=== PATIENT | male | born 1950 | race Caucasian/White ===

== ENCOUNTER → 2023-04-09 08:50 | Outpatient (REF) | payer MEDICARE, SELFPAY ==
[2023-04-09 09:00] VITALS: BP 153/96; BP_SYST 67
[2023-04-09 10:10] LABS: INR 1.11; PT 14.6 Sec (11.4-14.6)
[2023-04-09 10:11] LABS: % Basophils 1.4 % (0-2); % Eosinophils 0.5 % (0-6); % Lymphocytes 11.2 % (20.5-51.1); % Monocytes 15.9 % (1.7-9.3); Absolute Basophils 0.1 10^3/uL (0-0.2); Absolute Lymphocytes 0.7 10^3/uL (1.2-3.4); Absolute Monocytes 0.9 10^3/uL (0.1-0.6); Absolute Neutrophils 4.1 10^3/uL (1.4-6.5); Hematocrit 40.4 % (39.0-52.0); Hemoglobin 13.8 g/dL (13.0-18.0); Mean Corp Hgb Conc. 34.2 g/dL (33.0-37.0); Mean Corpuscular Hgb 32.1 pg (27.0-31.0); Nucleated Red Blood Cells % 0 % (-); Platelet Count 197 10^3/uL (130-400); Red Cell Dist. Width 13.7 % (11.5-14.5); White Blood Cell Count 5.8 10^3/uL (4.8-10.8)
[2023-04-09] MEDS: NSS (PRESERVATIVE FREE) 0.25 ML IV (10:56)
[2023-04-09] MEDS: ATIVAN 0.5 MG IV (10:56)
[2023-04-09] MEDS: FLUSH (NSS) 1 FLUSH IV (10:57)
[2023-04-09 11:33] VITALS: BP 157/94
== END ==
LOC: RADI 08:50
PROVIDERS: Radiology Diagnostic Radiology; ATTENDING PHYSICIAN Internal Medicine Hematology & Oncology
DX: C90.00 Multiple myeloma not having achieved remission (principal)
CPT/HCPCS: 88305; 88311; 88312; 38222; 77012; 85025; 85610; 88313; 88341; 88342; 93005

== ENCOUNTER 2023-04-16 12:14 | Emergency (ER) | payer MEDICARE, SELFPAY ==
[2023-04-16] VITALS (7 sets, daily range): BP systolic 63–160; BP diastolic 72–93; BMI 25.8
[2023-04-16 12:59] LABS: ALT (SGPT) 21 U/L (0-50); AST (SGOT) 36 U/L (17-59); Albumin 3.2 g/dl (3.5-5.0); Alkaline Phosphatase 94 U/L (38-126); Blood Urea Nitrogen 27 mg/dl (9-20); Calcium 8.9 mg/dl (8.4-10.2); Carbon Dioxide 27 mmol/L (22-30); Chloride 102 mmol/L (98-107); Glucose 141 mg/dl (70-99); Potassium 3.5 mmol/L (3.5-5.1); Sodium 136 mmol/L (135-145); Total Bilirubin 0.8 mg/dl (0.2-1.3); Total Protein 5.2 g/dl (6.3-8.2); eGFR 39.25
[2023-04-16 13:19] LABS: NT-proBNP 15400 pg/ml; Troponin I 0.166 ng/ml
--- NOTE | 2023-04-16 13:55 | EDRN ---
VAT APPLICATION DEFENSE MANAGER Kasi will be down to access R ACW port. Johanny VILLALPANDO in room w/ pt.
--- NOTE | 2023-04-16 14:02 | ED.GENMED ---
History of Present Illness
General
Chief Complaint: Breathing Problem
Time Seen by Provider: 04/16/23 13:38
Travel History
Have you had any contact with someone who has COVID-19?: No
Do you have any symptoms of coronavirus? Fever > 100 degrees, chills, cough, shortness of breath, sore throat, loss of taste or smell, muscle aches, or headache?: No
History of Present Illness
History of Present Illness:
72-year-old male with history of CHF and multiple myeloma presents to the emergency department for evaluation of shortness of breath ongoing for the past 2 to 3 days. States he feels comparable to approximately 11 days ago when he was noted to have
a large left pleural effusion and underwent thoracentesis. He denies any chest pain or fevers. He also notes that he is scheduled to see his roving court reporter tomorrow for Holter monitor initiation as he was noted to be in A-fib transiently last week
while undergoing an outpatient bone marrow biopsy.
Past History
Past History
ED Past Medical History: CAD, Cancer, CHF, HTN, Hypercholesterolemia, [place] and Other
ED Past Surgical History: Cardiac (Stents X 4) and Orthopedic
Social History
Tobacco: Former smoker
Alcohol: Occasional
Personal:
Living: alone
Employment: Employed
Review of Systems
Review of Systems
Allergies reviewed?: Yes
All Other Systems: ROS reviewed and negative except as documented in HPI and ROS
Phy Exam
Physical Exam
Physical Exam:
GEN: Well appearing, NAD, WDWN
Eyes: PERRLA, EOMs intact, no scleral icterus
HENT: NCAT, oral mucosa moist, no JVD, no cervical adenopathy.
Lungs: Markedly diminished L breath sounds
Cardiac: Irregular rhythm, controlled rate no M/R/G, no peripheral edema. Radial pulses 2+ bilat
Abdomen: S, NT, ND, NABS, no masses or hepatosplenomegaly
Neuro: AO x 3, no focal deficits to BUE/BLE, normal sensation throughout
MSK: No gross deformity or ecchymosis. No edema. No digital clubbing
Skin: No rashes, petechiae. Normal color, no pallor or jaundice.
Psych: Calm, cooperative, proper hygiene
Scores
Heart Failure Risk
Heart Failure Risk Score: Not Applicable
Course
Orders/Labs/Results
Orders:
Orders
04/16/23 12:24
Electrocardiogram (*1) Urgent
Reason for Study: Shortness of Breath
EKG- Treatment ONCE
CXR2 [CR Chest - 2 Views ] Urgent
Comment: hx chf
Reason For Exam: sob for the last three days
04/16/23 12:35
Comprehensive Metabolic Panel Urgent
LDH Urgent
NT-proBNP Urgent
Troponin I Urgent
04/16/23 14:08
Complete Blood Count/With Diff Urgent
04/16/23 14:18
[facility] CONSULT Urgent
Consulting Provider: Bryant Rodríguez
Was physician already notified: Yes
Reason for consult: L thoracentesis
04/16/23 14:19
Add On- LAB Urgent
Tests Added?: LDH
04/16/23 15:08
Portable Chest Xray [CR Chest Portable - 1 View] Urgent
Comment:
Reason For Exam: s/p left thoracentesis
Reason Study Needs to be Portable: Unable to Transport
04/16/23 15:11
Body Fluid Cell Count Routine
What is the Body Fluid: pleural fluid
Date Specimen was Collected: 04/16/23
Time Specimen was Collected: 15:10
Comment: left
Body Fluid Glucose Routine
Fluid Source: Pleural
Date Specimen was Collected: 04/16/23
Time Specimen was Collected: 15:10
Comment: left
Body Fluid LDH Routine
Fluid Source: Pleural
Date Specimen was Collected: 04/16/23
Time Specimen was Collected: 15:10
Comment: left
Body Fluid Protein Routine
Fluid Source: Pleural
Date Specimen was Collected: 04/16/23
Time Specimen was Collected: 15:10
Comment: left
Fluid Culture with Gram Stain Routine
KRISTA Source: Pleural Fluid
Specimen Description:
Date Specimen was Collected: 04/16/23
Time Specimen was Collected: 15:10
Comment: left
04/16/23 16:53
Heparin Pf [Heparin Lock Flush] 500 unit .ROUTE .STK-MED ONE
Abnormal Lab Results
04/16/23 04/16/23
12:35 14:08
RBC 4.30 L 10^6/uL
(4.70-6.10)
MCV 94.4 H fL
(80.0-94.0)
MCH 32.6 H pg
(27.0-31.0)
Absolute Lymphs (auto) 0.8 L 10^3/uL
(1.2-3.4)
Absolute Monos (auto) 0.7 H 10^3/uL
(0.1-0.6)
Neutrophils % 75.7 H %
(42.2-75.2)
Lymphocytes % 11.4 L %
(20.5-51.1)
Monocytes % 11.0 H %
(1.7-9.3)
BUN 27 H mg/dl
(9-20)
Creatinine 1.8 H mg/dL
(0.7-1.3)
Glucose 141 H mg/dl
(70-99)
Troponin I 0.166 H* ng/ml
Total Protein 5.2 L g/dl
(6.3-8.2)
Albumin 3.2 L g/dl
(3.5-5.0)
04/16/23 14:08
04/16/23 12:35
Vital Signs
Initial and Last Documented VS:
Initial Vital Signs
Temp Pulse Resp BP Pulse Ox
98.0 F 75 16 136/72 98
04/16/23 12:22 04/16/23 12:22 04/16/23 12:22 04/16/23 12:22 04/16/23 12:22
Last Documented Vital Signs
Temp Pulse Resp BP Pulse Ox
98 F 57 20 160/85 97
04/16/23 14:48 04/16/23 16:31 04/16/23 16:30 04/16/23 16:00 04/16/23 16:30
MDM/Problems Addressed
MDM/Problems Addressed:
Patient was sent to interventional radiology for therapeutic thoracentesis yielding approximately 1100 cc of straw-colored fluid, pleural fluid analysis is consistent with transudative effusion. Incidentally the patient was noted to be consistently
in a rate controlled atrial fibrillation in the emergency department. I did discuss this with his roving court reporter, his [id number] score is 3 thus anticoagulation is appropriate, will withhold this until tomorrow given his recent thoracentesis.
Close cardiology follow-up advised
*Critical Care Note
Total Time (30-74mins, 75-104mins- exclusive of procedures): Not Applicable
ED Attending Note
-
Portions of this chart may have been created with voice recognition software.� Occasional wrong word or��sound alike� substitutions may have occurred due to the inherent limitations of voice recognition software.
Discharge Plan
Departure
Patient Disposition: Home (Routine Discharge)
Date of Disposition: 04/16/23
Time of Disposition: 16:33
Patient with high blood pressure during this ER visit?: No
Discharge Problem:
Recurrent left pleural effusion, Atrial fibrillation, new onset
Instructions: Atrial Fibrillation (DC), Going Home on Blood Thinners
Prescriptions:
New
Eliquis 5 mg tablet
5 mg PO BID Qty: 60 0RF
No Action
lamotrigine 100 MG tablet
100 mg PO BID
ezetimibe 10 MG tablet
10 mg PO DAILY
rosuvastatin 10 MG tablet
10 mg PO DAILY
aspirin 81 MG tablet,delayed release (DR/EC)
81 mg PO DAILY
allopurinol 100 MG tablet
100 mg PO DAILY
isosorbide mononitrate 30 mg Tablet Extended Release 24 Hr
30 mg PO DAILY
montelukast [Singulair] 10 mg Tablet
10 mg PO UD
Rx Instructions:
take the night before, night of and night after darzalez infusion
gabapentin [Neurontin] 100 mg Capsule
100 mg PO TID
furosemide [Lasix] 80 MG tablet
80 mg PO DAILY
risperidone 0.25 mg Tablet
0.25 mg PO HS
acyclovir 400 mg Tablet
400 mg PO BID
dexamethasone 4 mg Tablet
4 mg PO UD
Rx Instructions:
take the day after darzalez infusion and for 2 days
potassium chloride 20 mEq Tablet Extended Release
20 meq PO DAILY
Darzalex 20 mg/mL Solution
0 mg IV MONTHLY
carvedilol 3.125 mg tablet
3.125 mg PO DAILY
hydralazine [Apresoline] 25 mg Tablet
25 mg PO BID
Referrals:
Sam De León MD [Active] - Call in 1-3 days for appt
Bang Lambert III, [Family Provider] -
Activity Restrictions/Additional Instructions:
Do not begin your blood thinner until tomorrow morning
Contact your roving court reporter tomorrow to schedule follow-up appointment
Interventions
Interventions:
*Risk Screen - Suicide Last Done: 04/16/23 14:05
*General Assessment Last Done: 04/16/23 14:05
*Neglect/Abuse Screening Last Done: 04/16/23 14:05
ED- Fall Risk Assessment Last Done: 04/16/23 14:05
*ED COVID-19 Vaccine History Last Done: 04/16/23 12:22
*Nursing Disposition Last Done: 04/16/23 17:14
ED- Cardiac Assessment Last Done: 04/16/23 14:05
ED- Pulmonary Assessment Last Done: 04/16/23 14:05
Discharge Date and Time
Discharge Date/Time: 04/16/23 17:14
--- NOTE | 2023-04-16 14:05 | EDRN ---
CECILLE GOODRICH Kasi in room w/ pt at this time.
--- NOTE | 2023-04-16 15:29 | EDRN ---
Just received report from [facility] on pt from [facility] that pt had thoracentesis w/ 1100 mL drained and CXR post procedure w/ no pneumo. All ordered specimens sent from [facility] per message.
[2023-04-16 16:02] LABS: Body Fluid WBC 251 /CUMM
--- NOTE | 2023-04-16 16:02 | EDRN ---
Pt administered orange juice and crackers at his request at this time after Johanny Mccullough said it was okay for pt to eat and drink.
[2023-04-16 16:21] LABS: Body Fluid Glucose 112 mg/dl; Body Fluid LDH < 90 U/L; Body Fluid Protein < 2.0 g/dl
[2023-04-16 16:24] LABS: % Basophils 1.4 % (0-2); % Eosinophils 0.2 % (0-6); % Immature Granulocytes 0.3 % (0-0.5); % Lymphocytes 11.4 % (20.5-51.1); % Neutrophils 75.7 % (42.2-75.2); Absolute Basophils 0.1 10^3/uL (0-0.2); Absolute Lymphocytes 0.8 10^3/uL (1.2-3.4); Absolute Monocytes 0.7 10^3/uL (0.1-0.6); Hematocrit 40.6 % (39.0-52.0); Mean Corp Hgb Conc. 34.5 g/dL (33.0-37.0); Mean Corpuscular Hgb 32.6 pg (27.0-31.0); Mean Corpuscular Volume 94.4 fL (80.0-94.0); Mean Platelet Volume 10.4 fL (7.4-10.4); Nucleated Red Blood Cells % 0 % (-); Platelet Count 179 10^3/uL (130-400); White Blood Cell Count 6.6 10^3/uL (4.8-10.8)
[2023-04-16 16:31] LABS: LDH 226 U/L (120-246)
[2023-04-16 16:40] LABS: Body Fluid Second Tech EYM
== END 2023-04-16 17:14 | disposition home or self-care (01) ==
LOC: EMR 12:14
PROVIDERS: Physician Assistant; Student in an Organized Health Care Education/Training Program; CONSULT PHYSICIAN Radiology Vascular & Interventional Radiology; EMERGENCY PHYSICIAN Emergency Medicine; FAMILY PHYSICIAN Internal Medicine
DX: J90 Pleural effusion, not elsewhere classified (principal); I48.91 Unspecified atrial fibrillation; Z87.891 Personal history of nicotine dependence; I50.9 Heart failure, unspecified
CPT/HCPCS: 99285; 32555; 71045; 71046; 80053; 82945; 83615; 83880; 84157; 84484; 85025; 87015; 87070; 87205; 89051; 93005

== ENCOUNTER 2023-04-20 16:01 | Inpatient (IN) | payer MEDICARE, SELFPAY ==
[2023-04-20] VITALS (8 sets, daily range): BP systolic 155–193; BP diastolic 77–111; BMI 26.1; BMI 24.8
--- NOTE | 2023-04-20 10:48 | ED.GENMED ---
History of Present Illness
<JAZMIN Rayo - Last Filed: 04/26/23 09:41>
General
Chief Complaint: Breathing Problem
Source: patient and records
Exam Limitations: none
Time Seen by Provider: 04/20/23 10:28
Nursing documentation reviewed up to this point in time: agreed with
Travel History
Have you had any contact with someone who has COVID-19?: No
Do you have any symptoms of coronavirus? Fever > 100 degrees, chills, cough, shortness of breath, sore throat, loss of taste or smell, muscle aches, or headache?: No
History of Present Illness
History of Present Illness:
72 year old male presents with dyspnea x 1 day. Patient reports dyspnea came on gradually yesterday and has since gotten worse. Patient reports thoracentesis is only alleviating treatment. He reports he feels like he is gasping for air and that he
cannot take a full breath and feels pressure in his chest with inspiration. He admits to two previous episodes, one on Sunday04/16/23 and the other a month ago.
Past History
<JAZMIN Rayo - Last Filed: 04/26/23 09:41>
Past History
ED Past Medical History: CAD, Cancer, CHF, HTN, Hypercholesterolemia, [place] and Other
ED Past Surgical History: Cardiac (Stents X 4) and Orthopedic
Social History
Tobacco: Former smoker
Alcohol: Occasional
Personal:
Living: alone
Employment: Employed
Review of Systems
<JAZMIN Rayo - Last Filed: 04/26/23 09:41>
Review of Systems
Respiratory: Reports trouble breathing
Cardiac: Reports chest pain
ABD/GI: Reports no symptoms
: Reports no symptoms
Musculoskeletal: Reports no symptoms
Neurological: Reports no symptoms
Phy Exam
<ST GirmaPA - Last Filed: 04/26/23 09:41>
General Physical Exam
General Presentation: well appearing and no apparent distress
General age: appears stated age
General Skin: warm
General Habitus: normal
General Mental: alert
General Hydration: appears well hydrated
Cardiovascular Exam
Cardiovascular Exam: regular rate/rhythm
Pulmonary Exam
Pulmonary Exam: lungs clear and no cough
Cough: no cough
<Jim Mcwilliams, - Last Filed: 04/28/23 15:06>
Physical Exam
Physical Exam:
Physical Exam
General: no apparent distress, not acutely ill
Neck: supple. no meningeal signs. normal posterior pharynx
Heart: s1/s2 regular rate and rhythm, no murmur. equal radial
pulses.
HEENT: Pupils equal round reactive to light, EOMI
Lungs: Rales at bases bilaterally
Abdomen: normal bowel sounds. not tender. no CVAT
Neuro: alert and oriented. no focal neurological deficits cranial nerves II through XII intact
Skin: no rash
Psychiatric: well kept. interactive and cooperative
Extremities: no edema. no calf tenderness. negative homans. good distal pulses
Scores
<Raven Guadarrama [facility] - Last Filed: 04/26/23 09:41>
Heart Failure Risk
Heart Failure Risk Score: Not Applicable
Course
<Raven Guadarrama [facility] - Last Filed: 04/26/23 09:41>
Orders/Labs/Results
Orders:
Orders
04/20/23 10:01
EKG [Electrocardiogram (*1)] Urgent
Reason for Study: Shortness of Breath
EKG- Treatment ONCE
04/20/23 10:51
CR Chest - 2 Views Urgent
Comment:
Reason For Exam: shortness of breath
04/20/23 11:04
CMP [Comprehensive Metabolic Panel] Urgent
Complete Blood Count/With Diff Urgent
PT/INR [Prothrombin Time] Urgent
Pro-BNP [NT-proBNP] Urgent
Troponin I Urgent
Comment: ADD ON
04/20/23 12:10
Add On- LAB Urgent
Tests Added?: troponin
04/20/23 13:02
Furosemide [Lasix] 40 mg IV NOW STA
04/20/23 13:27
Heparin Pf [Heparin Lock Flush] 500 unit .ROUTE .ST-MED ONE
04/20/23 Dinner
Sodium, 2 Gram
At Your Request: Full Participation
Does patient need a safe tray?: No
Fluid Restriction: 1800 mL/day (60 oz)
04/20/23 15:45
Admit/Transfer Patient As Directed
Co-Sign Provider:
Level of Care: Inpatient admission
Assign to:: Telemetry
Physician / Group: Dr. Heath Michael/Hospitalists
Diagnosis: Acute Heart Failure/Dyspnea
Reason for Telemetry: Acute Heart Failure
Date to Stop Telemetry: 04/23/23
Time to Stop Telemetry: 11:00
Reason for Hospitalization: Acute Heart Failure/Dyspnea
Expected length of stay greater than two midnights?: Yes
ELOS- Estimated Length of Stay in days: 3
I certify the patient meets the requirements for IP care: Yes
04/20/23 15:48
Code Status As Directed
Resuscitation Status: Full Code
04/20/23 16:01
CARDIOLOGY CONSULT Routine
Consulting Provider: Jace Toussaint
Was physician already notified: Yes
Reason for consult: CHF exacerbation
04/20/23 16:34
Dexamethasone [Decadron] 4 mg PO UD
Gabapentin [Neurontin] 100 mg PO TID
Montelukast Sodium [Singulair] 10 mg PO UD
Sennosides [Senokot] 8.6 mg PO DAILYPRN PRN
daratumumab [Darzalex] See Dose Instructions IV MONTHLY
04/20/23 16:34
Activity As Directed
Activity Level: As Tolerated
Intake/ Output As Directed
Frequency: q12h
Pneumatic Compression Sleeves As Directed
Type: Knee high
Vital Signs As Directed
Frequency: Per unit guidelines
Weight As Directed
Frequency: Daily
DX Deep Vein Thrombosis Video Routine
04/20/23 17:22
Troponin I Q6H
04/20/23 20:00
Acyclovir [Zovirax] 400 mg PO BID
Apixaban [Eliquis] 5 mg PO BID
HydrALAZINE [Apresoline] 25 mg PO BID
Lamotrigine [Lamictal] 100 mg PO BID
04/20/23 22:00
Ezetimibe [Zetia] 10 mg PO HS
Risperidone [Risperdal] 0.25 mg PO HS
04/20/23 23:00
Troponin I Q6H
04/21/23 07:33
Basic Metabolic Panel IN AM
Complete Blood Count/No Diff IN AM
Magnesium IN AM
04/21/23 08:00
Allopurinol [Zyloprim] 100 mg PO DAILY
Aspirin Low Dose EC [Aspir Low (Enteric Coated)] 81 mg PO DAILY
Carvedilol [Coreg] 3.125 mg PO DAILY
Furosemide [Lasix] 60 mg IV BID AT 0800,1600
Furosemide [Lasix] 80 mg PO DAILY
ISOSORBIDE MONOnitrate ER [Imdur (Extended Release)] 30 mg PO DAILY
Potassium Chloride [KCl] 20 meq PO DAILY
Rosuvastatin Calcium [Crestor] 10 mg PO DAILY
venetoclax [Venclexta] 200 mg PO DAILY
04/22/23 07:45
Complete Blood Count/No Diff IN AM
04/23/23 07:58
Basic Metabolic Panel IN AM
Complete Blood Count/No Diff IN AM
04/23/23 11:00
DC Protocol for Telemetry ONCE
04/24/23 05:24
Basic Metabolic Panel IN AM
Complete Blood Count/No Diff IN AM
Abnormal Lab Results
04/20/23
11:04
RBC 4.19 L 10^6/uL
(4.70-6.10)
MCV 95.2 H fL
(80.0-94.0)
MCH 31.7 H pg
(27.0-31.0)
Absolute Lymphs (auto) 0.5 L 10^3/uL
(1.2-3.4)
Absolute Monos (auto) 0.7 H 10^3/uL
(0.1-0.6)
Neutrophils % 82.6 H %
(42.2-75.2)
Lymphocytes % 6.7 L %
(20.5-51.1)
PT 20.6 H Sec
(11.4-14.6)
Carbon Dioxide 32 H mmol/L
(22-30)
BUN 23 H mg/dl
(9-20)
Creatinine 1.9 H mg/dL
(0.7-1.3)
Alkaline Phosphatase 147 H U/L
(38-126)
Troponin I 0.155 H* ng/ml
Total Protein 6.2 L g/dl
(6.3-8.2)
04/20/23 11:04
04/20/23 11:04
Vital Signs
Initial and Last Documented VS:
Initial Vital Signs
Temp Pulse Resp BP Pulse Ox
98.1 F 65 20 186/104 99
04/20/23 09:57 04/20/23 09:57 04/20/23 09:57 04/20/23 09:57 04/20/23 09:57
Last Documented Vital Signs
Temp Pulse Resp BP Pulse Ox
98.0 F 73 16 130/82 95
04/24/23 07:30 04/24/23 07:47 04/24/23 07:30 04/24/23 07:47 04/24/23 07:30
<Jim Mcwilliams, DO - Last Filed: 04/28/23 15:06>
Orders/Labs/Results
Orders:
Orders
04/20/23 10:01
EKG [Electrocardiogram (*1)] Urgent
Reason for Study: Shortness of Breath
EKG- Treatment ONCE
04/20/23 10:51
CR Chest - 2 Views Urgent
Comment:
Reason For Exam: shortness of breath
04/20/23 11:04
CMP [Comprehensive Metabolic Panel] Urgent
Complete Blood Count/With Diff Urgent
PT/INR [Prothrombin Time] Urgent
Pro-BNP [NT-proBNP] Urgent
Troponin I Urgent
Comment: ADD ON
04/20/23 12:10
Add On- LAB Urgent
Tests Added?: troponin
04/20/23 13:02
Furosemide [Lasix] 40 mg IV NOW STA
04/20/23 13:27
Heparin Pf [Heparin Lock Flush] 500 unit .ROUTE .STK-MED ONE
04/20/23 Dinner
Sodium, 2 Gram
At Your Request: Full Participation
Does patient need a safe tray?: No
Fluid Restriction: 1800 mL/day (60 oz)
04/20/23 15:45
Admit/Transfer Patient As Directed
Co-Sign Provider:
Level of Care: Inpatient admission
Assign to:: Telemetry
Physician / Group: Dr. Heath Michael/Hospitalists
Diagnosis: Acute Heart Failure/Dyspnea
Reason for Telemetry: Acute Heart Failure
Date to Stop Telemetry: 04/23/23
Time to Stop Telemetry: 11:00
Reason for Hospitalization: Acute Heart Failure/Dyspnea
Expected length of stay greater than two midnights?: Yes
ELOS- Estimated Length of Stay in days: 3
I certify the patient meets the requirements for IP care: Yes
04/20/23 15:48
Code Status As Directed
Resuscitation Status: Full Code
04/20/23 16:01
CARDIOLOGY CONSULT Routine
Consulting Provider: Jace Toussaint
Was physician already notified: Yes
Reason for consult: CHF exacerbation
04/20/23 16:34
Dexamethasone [Decadron] 4 mg PO UD
Gabapentin [Neurontin] 100 mg PO TID
Montelukast Sodium [Singulair] 10 mg PO UD
Sennosides [Senokot] 8.6 mg PO DAILYPRN PRN
daratumumab [Darzalex] See Dose Instructions IV MONTHLY
04/20/23 16:34
Activity As Directed
Activity Level: As Tolerated
Intake/ Output As Directed
Frequency: q12h
Pneumatic Compression Sleeves As Directed
Type: Knee high
Vital Signs As Directed
Frequency: Per unit guidelines
Weight As Directed
Frequency: Daily
DX Deep Vein Thrombosis Video Routine
04/20/23 17:22
Troponin I Q6H
04/20/23 20:00
Acyclovir [Zovirax] 400 mg PO BID
Apixaban [Eliquis] 5 mg PO BID
HydrALAZINE [Apresoline] 25 mg PO BID
Lamotrigine [Lamictal] 100 mg PO BID
04/20/23 22:00
Ezetimibe [Zetia] 10 mg PO HS
Risperidone [Risperdal] 0.25 mg PO HS
04/20/23 23:00
Troponin I Q6H
04/21/23 07:33
Basic Metabolic Panel IN AM
Complete Blood Count/No Diff IN AM
Magnesium IN AM
04/21/23 08:00
Allopurinol [Zyloprim] 100 mg PO DAILY
Aspirin Low Dose EC [Aspir Low (Enteric Coated)] 81 mg PO DAILY
Carvedilol [Coreg] 3.125 mg PO DAILY
Furosemide [Lasix] 60 mg IV BID AT 0800,1600
Furosemide [Lasix] 80 mg PO DAILY
ISOSORBIDE MONOnitrate ER [Imdur (Extended Release)] 30 mg PO DAILY
Potassium Chloride [KCl] 20 meq PO DAILY
Rosuvastatin Calcium [Crestor] 10 mg PO DAILY
venetoclax [Venclexta] 200 mg PO DAILY
04/22/23 07:45
Complete Blood Count/No Diff IN AM
04/23/23 07:58
Basic Metabolic Panel IN AM
Complete Blood Count/No Diff IN AM
04/23/23 11:00
DC Protocol for Telemetry ONCE
04/24/23 05:24
Basic Metabolic Panel IN AM
Complete Blood Count/No Diff IN AM
Abnormal Lab Results
04/20/23
11:04
RBC 4.19 L 10^6/uL
(4.70-6.10)
MCV 95.2 H fL
(80.0-94.0)
MCH 31.7 H pg
(27.0-31.0)
Absolute Lymphs (auto) 0.5 L 10^3/uL
(1.2-3.4)
Absolute Monos (auto) 0.7 H 10^3/uL
(0.1-0.6)
Neutrophils % 82.6 H %
(42.2-75.2)
Lymphocytes % 6.7 L %
(20.5-51.1)
PT 20.6 H Sec
(11.4-14.6)
Carbon Dioxide 32 H mmol/L
(22-30)
BUN 23 H mg/dl
(9-20)
Creatinine 1.9 H mg/dL
(0.7-1.3)
Alkaline Phosphatase 147 H U/L
(38-126)
Troponin I 0.155 H* ng/ml
Total Protein 6.2 L g/dl
(6.3-8.2)
04/20/23 11:04
04/20/23 11:04
Vital Signs
Initial and Last Documented VS:
Initial Vital Signs
Temp Pulse Resp BP Pulse Ox
98.1 F 65 20 186/104 99
04/20/23 09:57 04/20/23 09:57 04/20/23 09:57 04/20/23 09:57 04/20/23 09:57
Last Documented Vital Signs
Temp Pulse Resp BP Pulse Ox
98.0 F 73 16 130/82 95
04/24/23 07:30 04/24/23 07:47 04/24/23 07:30 04/24/23 07:47 04/24/23 07:30
<Jim Mcwilliams DO - Last Filed: 04/28/23 15:06>
MDM/Problems Addressed
Differential Diagnosis Includes:
Pneumonia, CHF
MDM/Problems Addressed:
72-year-old male with CHF exacerbation.
Chronic conditions affecting care: HTN and Cardiomyopathy
Acute Exacerbation and/or Progression of Chronic Illness: HTN and Cardiomyopathy
<JAZMIN Rayo - Last Filed: 04/26/23 09:41>
*EKG
Interpreted by ED Provider?: Yes
EKG Intrepretation Date: 04/20/23
EKG Intrepretation Time: 10:04
Interpretation: abnormal
Comparison EKG: no changes
Heart Rate: 65
Rate: normal
Rhythm: a-fib
Baldwin: left axis deviation
Interval: long QT
QRS Pattern: normal QRS
Ischemia: no ischemia
*Critical Care Note
Total Time (30-74mins, 75-104mins- exclusive of procedures): Not Applicable
<Jim Mcwilliams DO - Last Filed: 04/28/23 15:06>
*Radiology
Radiology exam reviewed: radiology read reviewed (Chest x-ray left pleural effusion)
*Pulse Oximetry
Patient hypoxic: no
*Chip Crusher Operator Interpretation
Rate: normal
Interpretation: abnormal
Heart Rate: 66
Rhythm: a-fib
ED Attending Note
<Raven Guadarrama STPA - Last Filed: 04/26/23 09:41>
-
Portions of this chart may have been created with voice recognition software.� Occasional wrong word or��sound alike� substitutions may have occurred due to the inherent limitations of voice recognition software.
<Jim Mcwilliams DO - Last Filed: 04/28/23 15:06>
ED Attending Note
I performed a history and physical exam of patient and discussed management with resident, I reviewed resident's note and agree with documented findings and plan of care.: Yes
ED Attending Note:
I have reviewed and agree with history and treatment plan by Raven Guadarrama. My exam revealed decreased breath sounds at bases with Rales. IV Lasix given. Admit to hospitalist.
Discharge Plan
Departure
Patient Disposition: Admit
Date of Disposition: 04/20/23
Time of Disposition: 13:04
Admit to: Telemetry
Presentation/result/management discussed w/ accepting MD/DO: Hospitalist
Patient with high blood pressure during this ER visit?: Yes
Condition: Fair
Discharge Problem:
Acute exacerbation of CHF (congestive heart failure), Pleural effusion
Interventions
Interventions:
*Risk Screen - Suicide Last Done: 04/20/23 09:57
*General Assessment Last Done: 04/20/23 16:26
*Neglect/Abuse Screening Last Done: 04/20/23 09:57
ED- Fall Risk Assessment Last Done: 04/20/23 10:20
*ED COVID-19 Vaccine History Last Done: 04/20/23 09:57
*Nursing Disposition Last Done: 04/20/23 16:26
ED- Cardiac Assessment Last Done: 04/20/23 10:17
ED- Pulmonary Assessment Last Done: 04/20/23 10:17
Discharge Date and Time
Discharge Date/Time: 04/20/23 16:27
[2023-04-20 11:13] LABS: % Eosinophils 0.1 % (0-6); % Immature Granulocytes 0.5 % (0-0.5); % Lymphocytes 6.7 % (20.5-51.1); % Monocytes 9.1 % (1.7-9.3); % Neutrophils 82.6 % (42.2-75.2); Absolute Basophils 0.1 10^3/uL (0-0.2); Absolute Lymphocytes 0.5 10^3/uL (1.2-3.4); Absolute Monocytes 0.7 10^3/uL (0.1-0.6); Absolute Neutrophils 6.5 10^3/uL (1.4-6.5); Hematocrit 39.9 % (39.0-52.0); Hemoglobin 13.3 g/dL (13.0-18.0); Mean Corp Hgb Conc. 33.3 g/dL (33.0-37.0); Mean Corpuscular Hgb 31.7 pg (27.0-31.0); Mean Corpuscular Volume 95.2 fL (80.0-94.0); Mean Platelet Volume 10.4 fL (7.4-10.4); Nucleated Red Blood Cells % 0 % (-); Platelet Count 158 10^3/uL (130-400); Red Blood Cell Count 4.19 10^6/uL (4.70-6.10); Red Cell Dist. Width 13.9 % (11.5-14.5); White Blood Cell Count 7.9 10^3/uL (4.8-10.8)
[2023-04-20 11:26] LABS: ALT (SGPT) 22 U/L (0-50); AST (SGOT) 40 U/L (17-59); Albumin 3.7 g/dl (3.5-5.0); Alkaline Phosphatase 147 U/L (38-126); Blood Urea Nitrogen 23 mg/dl (9-20); Calcium 8.6 mg/dl (8.4-10.2); Carbon Dioxide 32 mmol/L (22-30); Chloride 101 mmol/L (98-107); Estimated Creatinine Clearance 37 ml/min; Glucose 98 mg/dl (70-99); Potassium 3.5 mmol/L (3.5-5.1); Sodium 136 mmol/L (135-145); Total Bilirubin 0.9 mg/dl (0.2-1.3); Total Protein 6.2 g/dl (6.3-8.2); eGFR 36.79
[2023-04-20 11:31] LABS: INR 1.79; PT 20.6 Sec (11.4-14.6)
[2023-04-20 11:34] LABS: NT-proBNP 14200 pg/ml
[2023-04-20] MEDS: LASIX 40 MG IV (13:30)
[2023-04-20 13:32] LABS: Troponin I 0.155 ng/ml
--- NOTE | 2023-04-20 16:05 | HPS.HSE ---
Family Physician
-
Family Physician: Bang Lambert
Chief Complaint
-
Shortness of breath
History of Present Illness
72 y/o male with past medical history of congestive heart failure, coronary artery disease status post stents, recently diagnosed Atrial Fibrillation on Eliquis (A-Fib diagnosed while undergoing outpatient bone marrow biopsy), multiple myeloma,
amyloidosis, chemotherapy-induced neuropathy, hypertension, hyperlipidemia, chronic kidney disease stage 4, recent femoral condyle fracture presented with worsening shortness of breath for the past 3 to 4 days. Patient recently came to the ER and
had a thoracentesis with about 1200 cc of fluid drained with studies suggesting transudative effusion as per ER report.
Patient said he felt better after his thoracentesis on 04/16/23 but then started feeling shortness of breath again. He denied actual chest pain but feels some chest tightness.
Medical History
Past Medical History
Past Medical History: Reports Other (As per HPI above)
Past Surgical History: Reports Cardiac and Orthopedic
Social History
Tobacco: Former Smoker
Alcohol: None
Drug: None
Family History
Family History: Not pertinent
Allergies / Home Medications
Allergies reflects when Allergies were last updated in [facility].
Home Medications with original date entered in [facility]
Allergy/Medication List:
Allergies
Allergy/AdvReac Type Severity Reaction Status Date / Time
atorvastatin Allergy MUSCLE Verified 04/20/23 10:01
CRAMPS
Cephalosporins Allergy Unknown Verified 04/20/23 10:01
coconut Allergy Unknown Verified 04/20/23 10:01
penicillin V Allergy Vomiting Verified 04/20/23 10:01
Penicillins Allergy Unknown Verified 04/20/23 10:01
pregabalin [From Lyrica] Allergy Tongue Verified 04/20/23 10:01
Swelling
simvastatin Allergy Unknown Verified 04/20/23 10:01
Lzmumol-DVH-QpA Reductase Allergy MUSCLE Verified 04/20/23 10:01
Inhibitor CRAMPS
[Hqomblk-Xyz-Zcs Reductase
Inhibitor]
Sulfa (Sulfonamide Allergy Unknown Verified 04/20/23 10:01
Antibiotics)
Home Medications
lamotrigine 100 mg tablet 100 mg PO BID Mental health 07/24/19
ezetimibe 10 mg tablet 10 mg PO HS High cholesterol 08/26/19
rosuvastatin 10 mg tablet 10 mg PO DAILY High cholesterol 08/26/19
aspirin 81 mg tablet,delayed release 81 mg PO DAILY Blood clot prevention/tx 08/27/19
allopurinol 100 mg tablet 100 mg PO DAILY Gout 06/15/20
gabapentin 100 mg capsule (Neurontin) 100 mg PO TID Pain 09/26/21
isosorbide mononitrate 30 mg tablet,extended release 24 hr 30 mg PO DAILY ANGINA 09/26/21
montelukast 10 mg tablet (Singulair) 10 mg PO UD bone pain prevention 09/26/21
furosemide 80 mg tablet (Lasix) 80 mg PO DAILY Fluid Retention/Swelling 03/09/22
acyclovir 400 mg tablet 400 mg PO BID Infection 01/03/23
dexamethasone 4 mg tablet 4 mg PO UD Anti-Inflammatory 01/03/23
potassium chloride 20 mEq tablet,extended release 20 meq PO DAILY Electrolyte Repletion 01/03/23
carvedilol 3.125 mg tablet 3.125 mg PO DAILY Blood Pressure 02/13/23
hydralazine 25 mg tablet 25 mg PO BID Blood Pressure 04/09/23
apixaban 5 mg tablet (Eliquis) 5 mg PO BID Blood Clot Prevention/Tx 04/20/23
daratumumab 20 mg/mL intravenous solution (Darzalex) 0 mg IV QMONTH Cancer 04/20/23
risperidone 0.5 mg tablet 0.25 mg PO HS Neurological Condition 04/20/23
sennosides 8.6 mg tablet (senna) 8.6 mg PO DAILY PRN constipation 04/20/23
venetoclax 100 mg tablet (Venclexta) 200 mg PO DAILY Cancer 04/20/23
Review of Systems
-
A 12 point ROS was completed and negative except as noted: Yes
Physical Exam
Vital Signs
Vital Signs
Temp Pulse Resp BP Pulse Ox
98.1 F 65 30 155/91 96
04/20/23 09:57 04/20/23 15:15 04/20/23 14:45 04/20/23 14:41 04/20/23 14:41
Physical Exam
General: No Apparent Distress and Conversant
HEENT: NormoCephalic and Moist mucous membranes
Respiratory: Decreased Breath Sounds
Cardiac: S1/S2 and Irregular Rhythm
GI: Soft, Non Tender and Normal Bowel Sounds
Musculoskeletal: No Cyanosis and No Edema
Skin: Warm and Dry
Neuro: Awake, Alert and AO x 3
Psych: Calm and Intact Judgment/Insight
Laboratory Results
-
04/20/23 11:04
04/20/23 11:04
Laboratory Results
PT 20.6 Sec (11.4-14.6) H 04/20/23 11:04
INR 1.79 04/20/23 11:04
Total Bilirubin 0.9 mg/dl (0.2-1.3) 04/20/23 11:04
AST 40 U/L (17-59) 04/20/23 11:04
ALT 22 U/L (0-50) 04/20/23 11:04
Alkaline Phosphatase 147 U/L (38-126) H 04/20/23 11:04
Troponin I 0.155 ng/ml H* 04/20/23 11:04
Impression/Plan
-
Assessment/Plan
Presentation with Dyspnea
Suspected Acute Exacerbation of Heart Failure with Preserved Ejection Fraction
-Patient takes Lasix 80 mg daily at home
-Lasix IV 60 mg BID here
-I's and O's
-Daily weights
-Check troponins
-Cardiology consulted, recommendations appreciated
Coronary artery disease status post stents
Recently diagnosed Atrial Fibrillation on Eliquis (A-Fib diagnosed while undergoing outpatient bone marrow biopsy) - continue Eliquis and telemetry monitoring
Multiple myeloma - had a recent bone marrow biopsy and path is pending
Amyloidosis
Chemotherapy-induced neuropathy - continue gabapentin
Hypertension - continue Hydralazine, Lasix, Coreg
Hyperlipidemia - continue Ezetimibe
Chronic kidney disease stage 4
Recent femoral condyle fracture
DVT PPx: Eliquis
Code Status: Full Code
[2023-04-20] MEDS: LASIX 20 MG IV (16:23)
--- NOTE | 2023-04-20 16:35 | W.PN.CD ---
Addendum entered and electronically signed by Jace Toussaint MD 04/20/23 17:13:
Patient seen and examined in collaboration with GOLF COURSE EQUIPMENT OPERATOR; agree with below.
-Patient sent from the Cardiology office today and referred to the ER; medical/cardiac history as outlined below.
-Appears to likely have some degree of acute on chronic HFpEF.
-Recommend checking for COVID infection.
-Recommend placing on Lasix 80 mg IV twice daily for now.
-monitor technician; will reevaluate tomorrow.-
Original Note:
Today's Communication / Plan
-
Diuresis
Impression / Plan
-
*THIS IS THE CONSULT SUMMARY*
Please see scanned record for full consultation
Background: 72M known with Parkinson's disease, CAD with stenting, HFpEF, HTN, multiple myeloma, amyloid protein positive BM biopsy, and CKD3b presents with shortness of breath with associated 3 pound weight gain on his home scale.
Primary Hydraulic Corrugating Machine Operator: Dr. De León; He follows with Dr. Peguero at [facility] as well
Impression/Plan:
HFpEF, acute on chronic
-Diuresis with furosemide 80mg IV BID, this requires intensive monitoring
-Follow daily weight, I/Os, and BMP with diuresis
-We may need to re-evaluate his dry weight
-Heart failure education
Recurrent left pleural effusion
-Appears small on CXR, diuresis as above
Paroxysmal atrial fibrillation
-Rate controlled
-Oral Anticoagulation: Eliquis 5mg BID
-[id number]: score at least 4 (Heart failure, HTN, Vascular disease, age 65-74)
2nd degree AV block, Mobitz I (see 01/03/23 EKG)
MM, follows with Dr. Crocker
CAD, stable without CP
Subjective:
He endorses orthopnea, PND, and dyspnea.
Physical Exam
Vital Signs/Labs
Vital Signs
Temp Pulse Resp BP Pulse Ox
98.1 F 57 30 155/91 96
04/20/23 09:57 04/20/23 16:15 04/20/23 14:45 04/20/23 14:41 04/20/23 14:41
04/19/23 04/20/23 04/21/23
06:59 06:59 06:59
Actual Weight 84.8 kg
04/20/23 11:04
04/20/23 11:04
PT 20.6 Sec (11.4-14.6) H 04/20/23 11:04
INR 1.79 04/20/23 11:04
04/20/23
11:04
Twm-W-Eyzfblsqqzi Pept [id number]
LAB Results
04/20/23
11:04
Troponin I 0.155 H*
Physical Exam
Constitutional: No acute distress and Comfortable
EENT: Anicteric and Moist mucous membranes
Cardiovascular: Rhythm & rate is regular, Pedal edema present and S1S2 is normal
Respiratory: Respiratory effort normal and Other (Diminished at bases)
GI: Soft, Distention absent, Flat, Non tender and Normal bowel sounds
Neuro/Psych: AO x 3
Other: Skin (warm and dry with ankle edema)
Data Reviewed
-
Date of Service: April 20, 2023
Medical Decision Making: External Notes and Reviewed Test Results
EKG: Report Reviewed by me
Labs: Labs Reviewed by me
Old Records: Reviewed
--- NOTE | 2023-04-20 16:43 | PTCARENOTE ---
Pt arrived onto unit on tele and r.a, pt was ambulatory from stretcher to bed. BP was taken twice, vitals will be taken again in 30-60 minutes. call angelo in reach.
[2023-04-20 17:35] LABS: COVID-19 Antigen Negative (Negative)
[2023-04-20 17:57] LABS: Troponin I 0.142 ng/ml
[2023-04-20] MEDS: APRESOLINE 5 MG IV (18:56)
[2023-04-20] MEDS: NEURONTIN 100 MG PO ×2 (18:57→20:53)
--- NOTE | 2023-04-20 19:20 | PTCARENOTE ---
0 Rechecked BP 190/101 HR 80, pt continue Afib on heart monitor.Pt denies chest pain or distress. Pt mention did take his BP meds this am prior to entering ER. Dr. Michael notified and ordered prn Hydralazine 5mg IV,given as ordered. 1919 BP
rechecked 155/77, reported to ship erector nurse.
[2023-04-20] MEDS: ZOVIRAX 400 MG PO (20:47)
[2023-04-20] MEDS: LAMICTAL 100 MG PO (20:47)
[2023-04-20] MEDS: RISPERDAL 0.25 MG PO (20:48)
[2023-04-20] MEDS: APRESOLINE 25 MG PO (20:48)
[2023-04-20] MEDS: ELIQUIS 5 MG PO (20:49)
[2023-04-20] MEDS: ZETIA 10 MG PO (20:53)
[2023-04-21] VITALS (7 sets, daily range): BP systolic 147–159; BP diastolic 83–130; BMI 24.3
--- NOTE | 2023-04-21 00:44 | VATNOTE ---
THIS RN WAS NOT NOTIFIED BY PHLEBOTOMY PER POLICY THAT PT HAD AN ORDERED LAB DRAW VIA PRT AT 2300. LAB DRAWN PROMPTLY WHEN NOTIFIED BY PCN.
[2023-04-21] MEDS: TYLENOL 650 MG PO (01:04)
[2023-04-21 01:30] LABS: Troponin I 0.162 ng/ml
--- NOTE | 2023-04-21 07:29 | W.PN.CD ---
Today's Communication / Plan
-
-Continue aggressive diuresis with furosemide 80 mg IV BID; this requires intensive monitoring. No
Impression / Plan
-
Primary Bar Examiner: Dr. De León; He follows with Dr. Peguero at [facility] as well
Impression/Plan: 72M known with Parkinson's disease, CAD with stenting, HFpEF, HTN, multiple myeloma, amyloid protein positive BM biopsy, and CKD3b presents with shortness of breath with associated 3 pound weight gain on his home scale. Referred
from the Cardiology office.
HFpEF, acute on chronic
-Continue aggressive diuresis with furosemide 80 mg IV BID; this requires intensive monitoring.
-Continue to follow daily weight, I/Os, and BMP with diuresis.
Recurrent left pleural effusion
-Appears small on CXR; diuresis as above.
Paroxysmal atrial fibrillation
-Rate controlled
-Oral Anticoagulation: Eliquis 5mg BID
-[id number]: score at least 4 (Heart failure, HTN, Vascular disease, age 65-74)
-Continue current dose of carvedilol.
2nd degree AV block, Mobitz I -stable
MM, follows with Dr. Crocker
CAD, stable without CP
Subjective:
No major events overnight. Shortness of breath improving.
Physical Exam
Vital Signs/Labs
Vital Signs
Temp Pulse Resp BP Pulse Ox
98.6 F 76 18 147/90 94
04/21/23 03:00 04/21/23 03:00 04/21/23 03:00 04/21/23 03:00 04/21/23 03:00
04/20/23 04/21/23 04/22/23
06:59 06:59 06:59
Actual Weight 78.925 kg
PT 20.6 Sec (11.4-14.6) H 04/20/23 11:04
INR 1.79 04/20/23 11:04
04/20/23
11:04
Xsb-X-Gbrozjgzgzz Pept [id number]
LAB Results
04/20/23 04/20/23 04/21/23
11:04 17:22 00:52
Troponin I 0.155 H* 0.142 H* 0.162 H*
04/21/23 04/21/23 04/21/23
05:00 11:00 17:00
Troponin I Cancelled Cancelled Cancelled
Physical Exam
Constitutional: No acute distress and Comfortable
EENT: Anicteric
Cardiovascular: Pedal edema is absent, Rhythm/rate is irregular, Systolic murmur present (2/6) and S1S2 is normal
Respiratory: Respiratory effort normal and Lungs clear to auscul.
GI: Soft
Neuro/Psych: AO x 3
Other: Skin (Warm, dry, intact)
Data Reviewed
-
Date of Service: April 21, 2023
EKG: Tracing Personally Visualized and interpreted (Telemetry: A-fib)
Medical Tests (PFT, Pathology etc): Discussed with Patient
Labs: Labs Reviewed by me
[2023-04-21 07:59] LABS: Hematocrit 42.9 % (39.0-52.0); Hemoglobin 14.6 g/dL (13.0-18.0); Mean Corpuscular Hgb 31.9 pg (27.0-31.0); Mean Corpuscular Volume 93.7 fL (80.0-94.0); Mean Platelet Volume 10.4 fL (7.4-10.4); Platelet Count 166 10^3/uL (130-400); Red Blood Cell Count 4.58 10^6/uL (4.70-6.10); Red Cell Dist. Width 13.9 % (11.5-14.5); White Blood Cell Count 6.3 10^3/uL (4.8-10.8)
[2023-04-21 08:01] LABS: Blood Urea Nitrogen 26 mg/dl (9-20); Carbon Dioxide 33 mmol/L (22-30); Chloride 99 mmol/L (98-107); Estimated Creatinine Clearance 37 ml/min; Glucose 124 mg/dl (70-99); Magnesium 2.3 mg/dl (1.6-2.3); Potassium 3.3 mmol/L (3.5-5.1); Sodium 136 mmol/L (135-145); eGFR 36.79
[2023-04-21 08:16] LABS: Troponin I 0.172 ng/ml
[2023-04-21] MEDS: LASIX 80 MG IV ×2 (08:19→15:47)
[2023-04-21] MEDS: ZYLOPRIM 100 MG PO (08:21)
[2023-04-21] MEDS: CRESTOR 10 MG PO (08:21)
[2023-04-21] MEDS: ASPIR LOW (ENTERIC COATED) 81 MG PO (08:21)
[2023-04-21] MEDS: NEURONTIN 100 MG PO ×3 (08:21→21:53)
[2023-04-21] MEDS: IMDUR (EXTENDED RELEASE) 30 MG PO (08:21)
[2023-04-21] MEDS: ZOVIRAX 400 MG PO ×2 (08:21→21:53)
[2023-04-21] MEDS: COREG 3.125 MG PO (08:22)
[2023-04-21] MEDS: KCL 20 MEQ PO ×2 (08:22→10:51)
[2023-04-21] MEDS: APRESOLINE 25 MG PO ×2 (08:22→21:54)
[2023-04-21] MEDS: LAMICTAL 100 MG PO ×2 (08:22→21:54)
[2023-04-21] MEDS: ELIQUIS 5 MG PO ×2 (08:23→21:53)
--- NOTE | 2023-04-21 12:33 | CM ---
Patient seen bedside.
IA completed.
patient lives alone in a 1 story efficiency.
Patient drives and drove here.
Patient independent prior to admission without assistive devices.
Patient was in [place] in the past s/p fracture.
PCP: Dr Lambert
Pharmacy: [facility]
Plan: d/c home no needs.
[2023-04-21 13:50] LABS: Troponin I 0.155 ng/ml
--- NOTE | 2023-04-21 18:50 | W.PN.HOSP.TC ---
Today's Communication/Plan
-
Continue IV diuresis
Assessment / Plan
Assessment / Plan
Physical Exam
General: No Apparent Distress and Conversant
HEENT: Normocephalic and Moist mucous membranes
Respiratory: CTAB
Cardiac: S1/S2 and Irregular Rhythm
GI: Soft, Non Tender and Normal Bowel Sounds
Musculoskeletal: No Cyanosis and No Edema
Skin: Warm and Dry
Neuro: Awake, Alert and AO x 3
Psych: Calm and Intact Judgment/Insight
Assessment/Plan
Presentation with Dyspnea
Suspected Acute Exacerbation of Heart Failure with Preserved Ejection Fraction
Recurrent left pleural effusion
-Patient takes Lasix 80 mg daily at home
-Lasix IV 80 mg BID here
-I's and O's
-Daily weights
-Check troponins
-Cardiology consulted, recommendations appreciated
Coronary artery disease status post stents
Recently diagnosed Atrial Fibrillation on Eliquis (A-Fib diagnosed while undergoing outpatient bone marrow biopsy) - continue Eliquis, Coreg and telemetry monitoring
2nd degree AV block, Mobitz I -stable
Multiple myeloma - had a recent bone marrow biopsy and path is pending; follows with Dr. Crocker
Amyloidosis
Chemotherapy-induced neuropathy - continue gabapentin
Hypertension - continue Hydralazine, Lasix, Coreg
Hyperlipidemia - continue Ezetimibe
Coronary Artery Disease
Chronic kidney disease stage 4
Recent femoral condyle fracture
DVT PPx: Eliquis
Code Status: Full Code
Anticipated Discharge: 24 - 48 hours
Subjective/Interval History
-
Date of Service: April 21, 2023
Patient was seen and examined. He reported that his shortness of breath is better today.
Objective Data
-
Labs:
Laboratory Results
04/21/23
07:33
WBC 6.3
Hgb 14.6
Hct 42.9
Plt Count 166
Sodium 136
Potassium 3.3 L
Chloride 99
Carbon Dioxide 33 H
BUN 26 H
Creatinine 1.9 H
Glucose 124 H
Calcium 9.0
Vital Signs:
Vital Signs
Temp Pulse Resp BP Pulse Ox
98.3 F 66 18 159/90 96
04/21/23 15:00 04/21/23 15:47 04/21/23 15:00 04/21/23 15:47 04/21/23 15:00
I&O
04/20/23 04/21/23 04/22/23
06:59 06:59 06:59
Intake Total 480 / 480 960 / 960
Balance 480 / 480 960 / 960
[2023-04-21 20:05] LABS: Troponin I 0.142 ng/ml
[2023-04-21] MEDS: RISPERDAL 0.25 MG PO (21:54)
[2023-04-21] MEDS: ZETIA 10 MG PO (21:56)
[2023-04-22 03:42] VITALS: BP 168/94
[2023-04-22 06:00] VITALS: BMI 23.6
[2023-04-22 07:00] VITALS: BP 152/89
[2023-04-22 08:12] LABS: Hematocrit 44.1 % (39.0-52.0); Hemoglobin 14.8 g/dL (13.0-18.0); Mean Corp Hgb Conc. 33.6 g/dL (33.0-37.0); Mean Corpuscular Hgb 31.7 pg (27.0-31.0); Mean Corpuscular Volume 94.4 fL (80.0-94.0); Mean Platelet Volume 10.2 fL (7.4-10.4); Platelet Count 179 10^3/uL (130-400); Red Blood Cell Count 4.67 10^6/uL (4.70-6.10); Red Cell Dist. Width 13.9 % (11.5-14.5); White Blood Cell Count 6.5 10^3/uL (4.8-10.8)
[2023-04-22] MEDS: IMDUR (EXTENDED RELEASE) 30 MG PO (08:22)
[2023-04-22] MEDS: CRESTOR 10 MG PO (08:22)
[2023-04-22] MEDS: KCL 20 MEQ PO (08:22)
[2023-04-22] MEDS: APRESOLINE 25 MG PO ×2 (08:22→20:00)
[2023-04-22] MEDS: ASPIR LOW (ENTERIC COATED) 81 MG PO (08:22)
[2023-04-22] MEDS: ELIQUIS 5 MG PO ×2 (08:22→20:01)
[2023-04-22] MEDS: COREG 3.125 MG PO (08:22)
[2023-04-22] MEDS: LAMICTAL 100 MG PO ×2 (08:22→20:01)
[2023-04-22] MEDS: ZYLOPRIM 100 MG PO (08:23)
[2023-04-22] MEDS: NEURONTIN 100 MG PO ×3 (08:23→21:09)
[2023-04-22] MEDS: ZOVIRAX 400 MG PO ×2 (08:23→20:01)
[2023-04-22] MEDS: LASIX 80 MG IV ×2 (08:23→17:07)
[2023-04-22 11:00] VITALS: BP 128/86
[2023-04-22 12:48] LABS: Blood Urea Nitrogen 37 mg/dl (9-20); Calcium 9.5 mg/dl (8.4-10.2); Carbon Dioxide 34 mmol/L (22-30); Chloride 96 mmol/L (98-107); Estimated Creatinine Clearance 37 ml/min; Glucose 104 mg/dl (70-99); Magnesium 2.5 mg/dl (1.6-2.3); Sodium 136 mmol/L (135-145); eGFR 36.79
[2023-04-22 15:00] VITALS: BP 113/70
--- NOTE | 2023-04-22 15:36 | W.PN.CD ---
Today's Communication / Plan
-
-Continue diuresis with furosemide 80 mg IV BID; weight/volume status improving.
Impression / Plan
-
Primary Vibrator Equipment Tester: Dr. De León; He follows with Dr. Peguero at [facility] as well
Impression/Plan: 72M known with Parkinson's disease, CAD with stenting, HFpEF, HTN, multiple myeloma, amyloid protein positive BM biopsy, and CKD3b presents with shortness of breath with associated 3 pound weight gain on his home scale. Referred
from the Cardiology office.
HFpEF, acute on chronic
-Continue diuresis with furosemide 80 mg IV BID--weight/volume status improving; possible transition to PO tomorrow.
-Continue to follow daily weight, I/Os, and BMP with diuresis.
Recurrent left pleural effusion
-Appears small on CXR; diuresis as above.
Paroxysmal atrial fibrillation
-Remains rate controlled.
-Oral Anticoagulation: Eliquis 5mg BID
-[id number]: score at least 4 (Heart failure, HTN, Vascular disease, age 65-74)
-Continue current dose of carvedilol.
2nd degree AV block, Mobitz I -stable
MM, follows with Dr. Crocker
CAD, stable without CP
Subjective:
No major events overnight. Shortness of breath improved.
Physical Exam
Vital Signs/Labs
Vital Signs
Temp Pulse Resp BP Pulse Ox
98.1 F 72 18 128/86 96
04/22/23 11:00 04/22/23 11:00 04/22/23 11:00 04/22/23 11:00 04/22/23 11:00
04/21/23 04/22/23 04/23/23
06:59 06:59 06:59
Actual Weight 78.925 kg 76.742 kg
04/22/23 07:45
04/22/23 12:06
PT 20.6 Sec (11.4-14.6) H 04/20/23 11:04
INR 1.79 04/20/23 11:04
Magnesium 2.5 mg/dl (1.6-2.3) H 04/22/23 12:06
04/20/23
11:04
Ors-T-Uwinudexepe Pept [id number]
LAB Results
04/20/23 04/20/23 04/21/23
11:04 17:22 00:52
Troponin I 0.155 H* 0.142 H* 0.162 H*
04/21/23 04/21/23 04/21/23
05:00 07:33 11:00
Troponin I Cancelled 0.172 H* Cancelled
04/21/23 04/21/23 04/21/23
13:13 17:00 19:28
Troponin I 0.155 H* Cancelled 0.142 H*
Physical Exam
Constitutional: No acute distress and Comfortable
EENT: Anicteric
Cardiovascular: Rhythm & rate is regular, Pedal edema is absent, Systolic murmur absent and S1S2 is normal
Respiratory: Respiratory effort normal and Rhonchi Present (Bibasilar)
GI: Soft
Neuro/Psych: AO x 3
Other: Skin (Warm, dry, intact)
Data Reviewed
-
Date of Service: April 22, 2023
Medical Tests (PFT, Pathology etc): Discussed with Patient
Labs: Labs Reviewed by me
--- NOTE | 2023-04-22 18:54 | W.PN.HOSP.TC ---
Today's Communication/Plan
-
Weights are coming down
Patient is feeling better
Possible discharge tomorrow
Assessment / Plan
Assessment / Plan
Physical Exam
General: No Apparent Distress and Conversant
HEENT: Normocephalic and Moist mucous membranes
Respiratory: CTAB
Cardiac: S1/S2 and Irregular Rhythm
GI: Soft, Non Tender and Normal Bowel Sounds
Musculoskeletal: No Cyanosis and No Edema
Skin: Warm and Dry
Neuro: Awake, Alert and AO x 3
Psych: Calm and Intact Judgment/Insight
Assessment/Plan
Presentation with Dyspnea
Suspected Acute Exacerbation of Heart Failure with Preserved Ejection Fraction
Recurrent left pleural effusion
-Patient takes Lasix 80 mg daily at home
-Lasix IV 80 mg BID here
-I's and O's
-Daily weights
-Trended troponins
-Cardiology consulted, recommendations appreciated
Coronary artery disease status post stents
Recently diagnosed Atrial Fibrillation on Eliquis (A-Fib diagnosed while undergoing outpatient bone marrow biopsy) - continue Eliquis, Coreg and telemetry monitoring
2nd degree AV block, Mobitz I -stable
Multiple myeloma - had a recent bone marrow biopsy and path is pending; follows with Dr. Crocker
Amyloidosis
Chemotherapy-induced neuropathy - continue gabapentin
Hypertension - continue Hydralazine, Lasix, Coreg
Hyperlipidemia - continue Ezetimibe
Coronary Artery Disease
Chronic kidney disease stage 4
Recent femoral condyle fracture
DVT PPx: Eliquis
Code Status: Full Code
Anticipated Discharge: 24 - 48 hours
Subjective/Interval History
-
Date of Service: April 22, 2023
Patient was seen and examined. He reported his shortness of breath is even better today. He denied any new symptoms.
Objective Data
-
Labs:
Laboratory Results
04/22/23 04/22/23 04/22/23
07:45 10:19 12:06
WBC 6.5
Hgb 14.8
Hct 44.1
Plt Count 179
Sodium Cancelled Cancelled 136
Potassium Cancelled Cancelled 4.0
Chloride Cancelled Cancelled 96 L
Carbon Dioxide Cancelled Cancelled 34 H
BUN Cancelled Cancelled 37 H
Creatinine Cancelled Cancelled 1.9 H
Glucose Cancelled Cancelled 104 H
Calcium Cancelled Cancelled 9.5
Vital Signs:
Vital Signs
Temp Pulse Resp BP Pulse Ox
98.4 F 71 18 113/70 96
04/22/23 15:00 04/22/23 15:00 04/22/23 15:00 04/22/23 15:00 04/22/23 15:00
I&O
04/21/23 04/22/23 04/23/23
06:59 06:59 06:59
Intake Total 480 / 480 1200 / 1200 720 / 720
Output Total 850 / 850 950 / 950
Balance 480 / 480 350 / 350 -230 / -230
[2023-04-22 19:22] VITALS: BP 129/81
[2023-04-22] MEDS: ZETIA 10 MG PO (21:09)
[2023-04-22] MEDS: RISPERDAL 0.25 MG PO (21:09)
[2023-04-22 23:10] VITALS: BP 136/78
[2023-04-23 03:10] VITALS: BP 149/79
[2023-04-23 06:00] VITALS: BMI 23.5
[2023-04-23 07:30] VITALS: BP 141/84
[2023-04-23 08:24] LABS: Hematocrit 44.9 % (39.0-52.0); Mean Corp Hgb Conc. 33.4 g/dL (33.0-37.0); Mean Corpuscular Volume 95.7 fL (80.0-94.0); Mean Platelet Volume 9.9 fL (7.4-10.4); Platelet Count 183 10^3/uL (130-400); Red Blood Cell Count 4.69 10^6/uL (4.70-6.10); Red Cell Dist. Width 13.7 % (11.5-14.5); White Blood Cell Count 7.2 10^3/uL (4.8-10.8)
--- NOTE | 2023-04-23 08:27 | W.PN.CD ---
Today's Communication / Plan
-
changed lasix to 80mg po bid
changed coreg to 3.125 bid
changed hydralazine to 50 bid
ECHO ordered for today
OK for discharge after echo done
Impression / Plan
-
Primary Facilities Mechanical Design Engineer: Dr. De León; He follows with Dr. Peguero at [facility] as well
Impression/Plan: 72M known with Parkinson's disease, CAD with stenting, HFpEF, HTN, multiple myeloma, amyloid protein positive BM biopsy, and CKD3b presents with shortness of breath with associated 3 pound weight gain on his home scale. Referred
from the Cardiology office.
HFpEF, acute on chronic
-Wt down 17lbs from 185 to 168. No leg edema. Faint basilar crackles persist
-Change lasix to 80mg po bid and this will be his new outpt dose
-Increase coreg to 3.125mg bid
-Increase hydralazine to 50 mg bid
-ECHO today
Recurrent left pleural effusion
-Appears small on CXR; diuresis as above.
Paroxysmal atrial fibrillation
-Remains rate controlled.
-Oral Anticoagulation: Eliquis 5mg BID
-[id number]: score at least 4 (Heart failure, HTN, Vascular disease, age 65-74)
-Continue carvedilol.
2nd degree AV block, Mobitz I -stable
MM, follows with Dr. Crocker
CAD, stable without CP
Dispo: LOOKS OK FOR HOME . PLEASE HAVE ECHO DONE PRIOR TO HOSPITAL DISCHARGE. He does not need to wait for reading - just want it completed before he leaves. F/U with our office in 2 wks.
Subjective:
No major events overnight. Shortness of breath improved.
Physical Exam
Vital Signs/Labs
Vital Signs
Temp Pulse Resp BP Pulse Ox
97.9 F 74 16 149/79 96
04/23/23 03:10 04/23/23 03:10 04/23/23 03:10 04/23/23 03:10 04/23/23 03:10
04/22/23 04/23/23 04/24/23
06:59 06:59 06:59
Actual Weight 169 lb 3 oz 168 lb 5 oz
PT 20.6 Sec (11.4-14.6) H 04/20/23 11:04
INR 1.79 04/20/23 11:04
Magnesium 2.5 mg/dl (1.6-2.3) H 04/22/23 12:06
04/20/23
11:04
Fws-Q-Npowodvfqni Pept [id number]
LAB Results
04/20/23 04/20/23 04/21/23
11:04 17:22 00:52
Troponin I 0.155 H* 0.142 H* 0.162 H*
04/21/23 04/21/23 04/21/23
05:00 07:33 11:00
Troponin I Cancelled 0.172 H* Cancelled
04/21/23 04/21/23 04/21/23
13:13 17:00 19:28
Troponin I 0.155 H* Cancelled 0.142 H*
Physical Exam
Constitutional: No acute distress and Comfortable
Cardiovascular: Rhythm/rate is irregular, Systolic murmur present (2/6 aortic outflow) and S1S2 is normal
Respiratory: Respiratory effort normal and Crackles Present (at bases)
GI: Non tender
Data Reviewed
-
Date of Service: April 23, 2023
[2023-04-23] MEDS: KCL 20 MEQ PO (08:58)
[2023-04-23] MEDS: ZYLOPRIM 100 MG PO (08:58)
[2023-04-23] MEDS: LAMICTAL 100 MG PO ×2 (08:58→19:51)
[2023-04-23] MEDS: NEURONTIN 100 MG PO ×3 (08:58→21:01)
[2023-04-23] MEDS: LASIX 80 MG PO ×2 (08:58→15:32)
[2023-04-23] MEDS: ELIQUIS 5 MG PO ×2 (08:58→19:52)
[2023-04-23] MEDS: ASPIR LOW (ENTERIC COATED) 81 MG PO (08:58)
[2023-04-23] MEDS: IMDUR (EXTENDED RELEASE) 30 MG PO (08:58)
[2023-04-23] MEDS: CRESTOR 10 MG PO (08:58)
[2023-04-23] MEDS: ZOVIRAX 400 MG PO ×2 (08:59→19:52)
[2023-04-23] MEDS: COREG 3.125 MG PO ×2 (08:59→19:52)
[2023-04-23] MEDS: LASIX IV (09:04)
[2023-04-23] MEDS: COREG PO (09:04)
[2023-04-23 09:07] LABS: Blood Urea Nitrogen 40 mg/dl (9-20); Carbon Dioxide 32 mmol/L (22-30); Chloride 96 mmol/L (98-107); Estimated Creatinine Clearance 30 ml/min; Glucose 104 mg/dl (70-99); Potassium 3.5 mmol/L (3.5-5.1); Sodium 136 mmol/L (135-145); eGFR 29.25
[2023-04-23 09:17] LABS: Calcium 9.2 mg/dl (8.4-10.2)
[2023-04-23] MEDS: APRESOLINE PO (11:09)
[2023-04-23 11:30] VITALS: BP 121/65
--- NOTE | 2023-04-23 11:33 | CM ---
Patient seen, reports no new concerns at this time. IMM reviewed, signed, placed in patients chart. Patient reports he will drive himself home upon discharge. CM will continue to follow for discharge planning needs.
Plan; home no needs anticipated.
[2023-04-23 15:30] VITALS: BP 120/76
--- NOTE | 2023-04-23 17:04 | W.PN.HOSP.TC ---
Today's Communication/Plan
-
recheck renal studies prior to dc
Assessment / Plan
Assessment / Plan
Assessment/Plan
Presentation with Dyspnea
Suspected Acute Exacerbation of Heart Failure with Preserved Ejection Fraction
Recurrent left pleural effusion
-Patient takes Lasix 80 mg daily at home
-Was on Lasix IV 80 mg BID now change to oral
-I's and O's
-Daily weights
-Trended troponins
-Cardiology consulted, recommendations appreciated
wt 84.8-->76.4 kg
BUN/CReat 23/1.9-->40/2.3
with rise in BUN/Creat would like to recheck in AM, may need to decrease diuretic pending results
Coronary artery disease status post stents
Recently diagnosed Atrial Fibrillation on Eliquis (A-Fib diagnosed while undergoing outpatient bone marrow biopsy) - continue Eliquis, Coreg and telemetry monitoring
2nd degree AV block, Mobitz I -stable
Multiple myeloma -original dx ~2.5 yrs ago, had a recent bone marrow biopsy and path is pending; follows with Dr. Crocker
Amyloidosis
Chemotherapy-induced neuropathy - continue gabapentin
Hypertension - continue Hydralazine, Lasix, Coreg
Hyperlipidemia - continue Ezetimibe
Coronary Artery Disease
Chronic kidney disease stage 4
Recent femoral condyle fracture
DVT PPx: Eliquis
Code Status: Full Code
Anticipated Discharge: Within 24 hours
Subjective/Interval History
-
Date of Service: April 23, 2023
Feeling better, less sob
Objective Data
-
Labs:
Laboratory Results
04/23/23
07:58
WBC 7.2
Hgb 15.0
Hct 44.9
Plt Count 183
Sodium 136
Potassium 3.5
Chloride 96 L
Carbon Dioxide 32 H
BUN 40 H
Creatinine 2.3 H
Glucose 104 H
Calcium 9.2
Vital Signs:
Vital Signs
Temp Pulse Resp BP Pulse Ox
98.8 F 77 18 120/76 96
04/23/23 15:30 04/23/23 15:32 04/23/23 15:30 04/23/23 15:32 04/23/23 15:30
I&O
04/22/23 04/23/23 04/24/23
06:59 06:59 06:59
Intake Total 1200 / 1200 1200 / 1200
Output Total 850 / 850 1650 / 1650
Balance 350 / 350 -450 / -450
Review of Systems
-
History Source: Patient and Physician (reviewed with Dr. De León)
Constitutional: Reports No Symptoms; Denies Fever
Respiratory: Reports No Symptoms; Denies Trouble Breathing
Cardiac: Reports No Symptoms; Denies Chest Pain
Abdomen/GI: Reports No Symptoms
Genitourinary: Reports No Symptoms
Musculoskeletal: Reports No Symptoms
Physical Exam
-
General: Well Developed, Well Nourished and No Apparent Distress
HEENT: Normocephalic, Atraumatic and Moist Mucous Membranes
Respiratory: Clear to Auscultation; Negative Wheezes, Rales or Rhonchi
Cardiac: Regular Rhythm and S1/S2
GI: Soft, Nontender and Nondistended
Musculoskeletal: No Clubbing, No Cyanosis and No Edema
[2023-04-23 19:19] VITALS: BP 158/87
[2023-04-23] MEDS: APRESOLINE 50 MG PO (19:51)
[2023-04-23] MEDS: RISPERDAL 0.25 MG PO (21:01)
[2023-04-23] MEDS: ZETIA 10 MG PO (21:01)
[2023-04-23 23:05] VITALS: BP 144/80
[2023-04-24 03:33] VITALS: BP 140/83
[2023-04-24 05:50] VITALS: BMI 23.5
[2023-04-24 06:25] LABS: Hematocrit 41.8 % (39.0-52.0); Hemoglobin 14.1 g/dL (13.0-18.0); Mean Corp Hgb Conc. 33.7 g/dL (33.0-37.0); Mean Corpuscular Volume 94.8 fL (80.0-94.0); Mean Platelet Volume 10.4 fL (7.4-10.4); Platelet Count 185 10^3/uL (130-400); Red Blood Cell Count 4.41 10^6/uL (4.70-6.10); Red Cell Dist. Width 13.7 % (11.5-14.5); White Blood Cell Count 5.9 10^3/uL (4.8-10.8)
[2023-04-24 06:37] LABS: Blood Urea Nitrogen 49 mg/dl (9-20); Calcium 9.2 mg/dl (8.4-10.2); Carbon Dioxide 32 mmol/L (22-30); Chloride 98 mmol/L (98-107); Estimated Creatinine Clearance 30 ml/min; Glucose 95 mg/dl (70-99); Potassium 3.5 mmol/L (3.5-5.1); Sodium 137 mmol/L (135-145); eGFR 29.25
[2023-04-24 07:30] VITALS: BP 138/82
[2023-04-24] MEDS: ELIQUIS 5 MG PO (07:45)
[2023-04-24] MEDS: IMDUR (EXTENDED RELEASE) 30 MG PO (07:45)
[2023-04-24] MEDS: ASPIR LOW (ENTERIC COATED) 81 MG PO (07:45)
[2023-04-24] MEDS: CRESTOR 10 MG PO (07:46)
[2023-04-24] MEDS: KCL 20 MEQ PO (07:46)
[2023-04-24] MEDS: LAMICTAL 100 MG PO (07:46)
[2023-04-24] MEDS: ZOVIRAX 400 MG PO (07:47)
[2023-04-24] MEDS: ZYLOPRIM 100 MG PO (07:47)
[2023-04-24] MEDS: COREG 3.125 MG PO (07:47)
[2023-04-24] MEDS: APRESOLINE 50 MG PO (07:48)
[2023-04-24] MEDS: NEURONTIN 100 MG PO (07:48)
--- NOTE | 2023-04-24 09:56 | W.PN.HOSP.TC ---
Addendum entered and electronically signed by Marshall Torres MD 04/24/23 16:33:
Non-IN troponin elevation
OLIVIA on CKD 3b
Addendum entered and electronically signed by Marshall Torres MD 04/24/23 11:43:
prior to patient leaving, nursing noted a 2.1 second pause. Call placed and discussed with Dr. De León, he cleared pt for dc, but requests pt be discharged on the same dose of Coreg, but only once daily (which was admission dose). Nurse made aware
and dc instructions corrected
Original Note:
Today's Communication/Plan
-
dc now
Assessment / Plan
Assessment / Plan
Assessment/Plan
Presentation with Dyspnea
Suspected Acute Exacerbation of Heart Failure with Preserved Ejection Fraction
Recurrent left pleural effusion
-Patient takes Lasix 80 mg daily at home
-Was on Lasix IV 80 mg BID now change to oral
-I's and O's
-Daily weights
-Trended troponins
-Cardiology consulted, recommendations appreciated
wt 84.8-->76.4 kg
BUN/CReat 23/1.9-->40/2.3-->49/2.3
[address] De León and discussed rising BUN/Creat, he would like the patient dc on Lasix 80 mg bid, will order
Coronary artery disease status post stents
Recently diagnosed Paroxysmal Atrial Fibrillation on Eliquis (A-Fib diagnosed while undergoing outpatient bone marrow biopsy) - continue Eliquis, Coreg and telemetry monitoring
2nd degree AV block, Mobitz I -stable
Multiple myeloma -original dx ~2.5 yrs ago, had a recent bone marrow biopsy and path is pending; follows with Dr. Crocker
Amyloidosis
Chemotherapy-induced neuropathy - continue gabapentin
Hypertension - continue Hydralazine, Lasix, Coreg
Hyperlipidemia - continue Ezetimibe
Coronary Artery Disease
Chronic kidney disease stage 4
Recent femoral condyle fracture
DVT PPx: Eliquis
Code Status: Full Code
dc now
see dictated note
More than 30 minutes spent in discharge including
Final examination of the patient
Summarizing hospital stay
Instructions for continuing care to all relevant caregivers
Preparation of discharge records, prescriptions, and referral forms
Total time spent (in minutes): 45
Anticipated Discharge: Today
Subjective/Interval History
-
Date of Service: April 24, 2023
Feels well
Objective Data
-
Labs:
Laboratory Results
04/24/23
05:24
WBC 5.9
Hgb 14.1
Hct 41.8
Plt Count 185
Sodium 137
Potassium 3.5
Chloride 98
Carbon Dioxide 32 H
BUN 49 H
Creatinine 2.3 H
Glucose 95
Calcium 9.2
Vital Signs:
Vital Signs
Temp Pulse Resp BP Pulse Ox
98.0 F 73 16 130/82 95
04/24/23 07:30 04/24/23 07:47 04/24/23 07:30 04/24/23 07:47 04/24/23 07:30
I&O
04/23/23 04/24/23 04/25/23
06:59 06:59 06:59
Intake Total 1200 / 1200 840 / 840
Output Total 1650 / 1650 1450 / 1450
Balance -450 / -450 -610 / -610
Review of Systems
-
History Source: Patient and Physician (reviewed with Dr. De León)
Constitutional: Reports No Symptoms; Denies Fever
Respiratory: Reports No Symptoms; Denies Trouble Breathing
Cardiac: Reports No Symptoms; Denies Chest Pain
Abdomen/GI: Reports No Symptoms
Genitourinary: Reports No Symptoms
Musculoskeletal: Reports No Symptoms
Physical Exam
-
General: Well Developed, Well Nourished and No Apparent Distress
HEENT: Normocephalic, Atraumatic and Moist Mucous Membranes
Respiratory: Clear to Auscultation; Negative Wheezes, Rales or Rhonchi
Cardiac: Regular Rhythm and S1/S2
GI: Soft, Nontender and Nondistended
Musculoskeletal: No Clubbing, No Cyanosis and No Edema
[2023-04-24] MEDS: LASIX 80 MG PO (10:26)
--- NOTE | 2023-04-24 10:40 | CM ---
Patient seen bedside, discussed plan for discharge today. Patient reports he drove himself. IMM reviewed, signed, placed in patients chart. CM will continue to follow for discharge planning needs.
Plan; home no needs.
--- NOTE | 2023-04-24 11:37 | PN.CDI ---
CDI
- -
CDI:
Physician Documentation Request
Admit Date: 04/20/23 16:01
Dear Doctor Melissa,
Please review the following and provide your response in the progress notes.
Clinical Indicators:
- 2/6 PN 'Chronic kidney disease stage 4'
- 2/ Cardiology 'CKD3b'
Laboratory Tests
04/20/23 04/23/23 04/24/23
11:04 07:58 05:24
Creatinine 1.9 H 2.3 H 2.3 H
eGFR 36.79 29.25 29.25
Please clarify which of the following accurately represents the patient's renal status:
OLIVIA on CKD 3b
OLIVIA on CKD 4
Other
Criteria for OLIVIA*
1 Increase in serum creatinine by > or = to 0.3 mg/dL (> or = to 26.5 micromol/L) within 48 hours, OR
2 Increase in serum creatinine to > or = to 1.5 times baseline, which is known or presumed to have occurred within 7 days, OR
3 Urine volume < 0.5 nL/kg/hour for six hours
Stages of Chronic Kidney Disease*
Level Description GFR
G1 Normal or High >90
G2 Mildly decreased 60-89
G3a Mildly to moderately decreased 45-59
G3b Moderately to severely decreased 30-44
G4 Severely decreased 15-29
G5 Kidney failure <15
Use of terms such as suspected, likely, concern for, or probable (associated with a specific diagnosis that is being evaluated, monitored, or treated as if it exists) are acceptable and can be coded in the inpatient setting, when documented at the
time of discharge.
Thank you,
Wes Delgado RN
CDI Specialist
Please use your independent medical judgment in providing your response.
*Source: Kidney Disease: Improving Global Outcomes (KDIGO) 2012
--- NOTE | 2023-04-24 11:42 | PN.CDI ---
CDI
- -
CDI:
Physician Documentation Request
Admit Date: 04/20/23 16:01
Dear Doctor Melissa,
Please review the following and provide your response in the progress notes.
Clinical Indicators:
- Patient admit for acute on chronic HFpEF
- 2/6 PN 'Trended troponins'
- Documented elevated troponins:
Laboratory Tests
04/20/23 04/20/23 04/21/23
11:04 17:22 00:52
Troponin I 0.155 H* 0.142 H* 0.162 H*
04/21/23 04/21/23 04/21/23
07:33 13:13 19:28
Troponin I 0.172 H* 0.155 H* 0.142 H*
Please clarify the following regarding the documented myocardial infarction
Non-SD troponin elevation
Type 2 SD due to demand ischemia
Other
Use of terms such as suspected, likely, concern for, or probable (associated with a specific diagnosis that is being evaluated, monitored, or treated as if it exists) are acceptable and can be coded in the inpatient setting, when documented at the
time of discharge.
Thank you,
Wes Delgado RN
CDI Specialist
Please use your independent medical judgment in providing your response.
--- NOTE | 2023-04-24 16:33 | W.DS.TRANS ---
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
-
Discharge Instructions:
Sleep Apnea Risk Intermediate
Discharge Diagnosis/Procedures HFpEF
Diet No added salt,Restrict fluids to 64 oz
Activity No strenuous activity
Driving Restrictions As prior to admission
Bathing Restrictions None
Blood Work CBC, BMP, Mag in 1 week
Stop these medications: Carvedilol dose will be once per day, which is
the dose at the time of admission
Instructions:
Stand-Alone Forms:
Changes to Home Medications: Yes
Discharge Medications:
DC Medications w/original date entered in [employer]
lamotrigine 100 mg tablet 100 mg PO BID Mental health 07/24/19
ezetimibe 10 mg tablet 10 mg PO HS High cholesterol 08/26/19
rosuvastatin 10 mg tablet 10 mg PO DAILY High cholesterol 08/26/19
aspirin 81 mg tablet,delayed release 81 mg PO DAILY Blood clot prevention/tx 08/27/19
allopurinol 100 mg tablet 100 mg PO DAILY Gout 06/15/20
gabapentin 100 mg capsule (Neurontin) 100 mg PO TID Pain 09/26/21
isosorbide mononitrate 30 mg tablet,extended release 24 hr 30 mg PO DAILY ANGINA 09/26/21
montelukast 10 mg tablet (Singulair) 10 mg PO UD bone pain prevention 09/26/21
acyclovir 400 mg tablet 400 mg PO BID Infection 01/03/23
dexamethasone 4 mg tablet 4 mg PO UD Anti-Inflammatory 01/03/23
potassium chloride 20 mEq tablet,extended release 20 meq PO DAILY Electrolyte Repletion 01/03/23
apixaban 5 mg tablet (Eliquis) 5 mg PO BID Blood Clot Prevention/Tx 04/20/23
daratumumab 20 mg/mL intravenous solution (Darzalex) 0 mg IV QMONTH Cancer 04/20/23
risperidone 0.5 mg tablet 0.25 mg PO HS Neurological Condition 04/20/23
sennosides 8.6 mg tablet (senna) 8.6 mg PO DAILY PRN constipation 04/20/23
venetoclax 100 mg tablet (Venclexta) 200 mg PO DAILY Cancer 04/20/23
carvedilol 3.125 mg tablet (Coreg) 3.125 mg PO ONCE #30 tabs 04/24/23
furosemide 80 mg tablet 80 mg PO BID@0800,1600 #60 tabs 04/24/23
hydralazine 25 mg tablet 50 mg PO BID #60 tabs 04/24/23
Home Medication Changes
Increase Lasix to 80 mg bid
Increase Hydralazine to 50 mg bid
same dose Carvedilol that was admitted on (one per day)
Pending Results: No
== END 2023-04-24 12:56 | disposition home or self-care (01) | DRG 291 ==
LOC: 4 WEST ACU 16:01
PROVIDERS: Nurse Practitioner Gerontology; ADMITTING PHYSICIAN Hospitalist; ATTENDING PHYSICIAN Internal Medicine; EMERGENCY PHYSICIAN Emergency Medicine; FAMILY PHYSICIAN Internal Medicine
DX: I13.0 Hypertensive heart and chronic kidney disease with heart failure and stage 1 through stage 4 chronic kidney disease, or unspecified chronic kidney disease (principal); I50.33 Acute on chronic diastolic (congestive) heart failure; C90.00 Multiple myeloma not having achieved remission; E85.9 Amyloidosis, unspecified; N18.4 Chronic kidney disease, stage 4 (severe); N17.9 Acute kidney failure, unspecified; I5A Non-ischemic myocardial injury (non-traumatic); Z87.891 Personal history of nicotine dependence; I25.10 Atherosclerotic heart disease of native coronary artery without angina pectoris; Z95.5 Presence of coronary angioplasty implant and graft; I48.0 Paroxysmal atrial fibrillation; Z79.01 Long term (current) use of anticoagulants; G62.0 Drug-induced polyneuropathy; T45.1X5A Adverse effect of antineoplastic and immunosuppressive drugs, initial encounter; I44.1 Atrioventricular block, second degree; E78.00 Pure hypercholesterolemia, unspecified; N18.32 Chronic kidney disease, stage 3b
CPT/HCPCS: 71046; 80048; 80053; 83735; 83880; 84484; 85025; 85027; 85610; 87811; 93005; 93306; 96374; 99285

== ENCOUNTER 2023-06-01 22:12 | Observation (INO) | payer MEDICARE, SELFPAY ==
[2023-06-01] VITALS (9 sets, daily range): BP systolic 96–122; BP diastolic 59–70; BMI 23.0; BMI 22.8
--- NOTE | 2023-06-01 17:06 | ED.GENMED ---
History of Present Illness
General
Chief Complaint: Abnormal Lab Value
Source: patient
Time Seen by Provider: 06/01/23 16:35
Travel History
Have you had any contact with someone who has COVID-19?: No
Do you have any symptoms of coronavirus? Fever > 100 degrees, chills, cough, shortness of breath, sore throat, loss of taste or smell, muscle aches, or headache?: No
History of Present Illness
History of Present Illness:
72-year-old male presents to the emergency room at the advisement of his primary care provider due to abnormal outpatient blood work. Patient was having blood work performed prior to receiving chemotherapy for multiple myeloma. He was told his
kidney function tests were quite abnormal and he had 'kidney failure'. Patient does have some chronic changes to his kidney test that he does not know his baseline creatinine. Patient has a history of amyloidosis, atrial fibrillation and heart
failure. He does take a large dose of Lasix at 80 mg twice a day. He was also on metolazone once a day which she just recently discontinued due to feeling weak.
Past History
Past History
ED Past Medical History: CAD, Cancer, CHF, HTN, Hypercholesterolemia, SD and Other
ED Past Surgical History: Cardiac (Stents X 4) and Orthopedic
Social History
Tobacco: Former smoker
Alcohol: Occasional
Personal:
Living: alone
Employment: Employed
Phy Exam
Physical Exam
Physical Exam:
General: Awake, Alert, Oriented X3. No acute distress.
Vitals: unremarkable
Head: Atraumatic
Eyes: Pupils equal, EOMI
Throat: Airway intact, no exudates, dry mucosa
Neck: Trachea midline
Lungs: Clear and equal b/l
Heart: irregular rate, no murmurs
Abd: Soft, Nontender, No pulsatile mass
Neuro: Nonfocal
Skin: Warm, dry, no rash
Extremities: pulses equal b/l, no edema
Course
Orders/Labs/Results
Orders:
Orders
06/01/23 16:53
CMP [Comprehensive Metabolic Panel] Urgent
Complete Blood Count/With Diff Urgent
06/01/23 17:05
Electrocardiogram (*1) Urgent
Reason for Study: Fatigue / Weakness
EKG- Treatment ONCE
06/01/23 17:06
CR Chest - 2 Views Urgent
Comment:
Reason For Exam: sob
06/01/23 18:18
Potassium Chloride 10% Elixir [KCl Elixir] 40 meq PO NOW STA
06/01/23 19:00
KCl 40 Meq/0.9%Sodchl 1000 ml [NSS with KCL 40 MEQ] 40 meq in 1,000 ml IV 150 mls/hr
Abnormal Lab Results
06/01/23
16:53
RBC 3.96 L 10^6/uL
(4.70-6.10)
Hgb 12.5 L g/dL
(13.0-18.0)
Hct 36.1 L %
(39.0-52.0)
MCH 31.6 H pg
(27.0-31.0)
MPV 10.7 H fL
(7.4-10.4)
Absolute Lymphs (auto) 0.4 L 10^3/uL
(1.2-3.4)
Neutrophils % 83.9 H %
(42.2-75.2)
Lymphocytes % 6.5 L %
(20.5-51.1)
Sodium 131 L mmol/L
(135-145)
Potassium 2.7 L* mmol/L
(3.5-5.1)
Chloride 82 L mmol/L
(98-107)
Carbon Dioxide 38 H mmol/L
(22-30)
BUN 151 H* mg/dl
(9-20)
Creatinine 3.7 H mg/dL
(0.7-1.3)
Glucose 125 H mg/dl
(70-99)
06/01/23 16:53
06/01/23 16:53
Vital Signs
Initial and Last Documented VS:
Initial Vital Signs
Temp Pulse Resp BP Pulse Ox
98.2 F 73 20 103/64 95
06/01/23 14:39 06/01/23 14:39 06/01/23 14:39 06/01/23 14:39 06/01/23 14:39
Last Documented Vital Signs
Temp Pulse Resp BP Pulse Ox
98.2 F 73 20 103/64 95
06/01/23 14:39 06/01/23 14:39 06/01/23 14:39 06/01/23 14:39 06/01/23 14:39
MDM/Problems Addressed
Differential Diagnosis Includes:
Acute renal failure from dehydration, acute renal failure from medication effect, hyperkalemia
MDM/Problems Addressed:
Patient presents with abnormal outpatient labs. He is on significant doses of diuretics. Given the BUN to creatinine ratio I suspect this is mostly prerenal azotemia. Will initiate IV fluids. His potassium is quite low. I discussed the
patient's presentation with nephrology on-call. They recommend giving the patient both IV and p.o. potassium. 40 mg of potassium ordered orally. Potassium also ordered as part of his IV fluid. Hospitalist will admit the patient.
Chronic conditions affecting care: HTN, Cancer (Multiple myeloma) and Other (Amyloidosis)
*Pulse Oximetry
Patient hypoxic: no
*Critical Care Note
Total Time (30-74mins, 75-104mins- exclusive of procedures): 35 min
comment:
Critical care statement: A total of 35 minutes of critical care time was provided for this patient. This includes management of unstable vital signs, evaluation of the patient at bedside, reviewing the patient's pertinent medical records, discussion
with consultants, review of old EKGs and review of pertinent medical records. This time with separate from time utilized to perform the aforementioned documented procedures
Patient Management
Discussion with other providers: Hospitalist
ED Attending Note
-
Portions of this chart may have been created with voice recognition software.� Occasional wrong word or��sound alike� substitutions may have occurred due to the inherent limitations of voice recognition software.
Discharge Plan
Departure
Patient Disposition: Admit
Date of Disposition: 06/01/23
Time of Disposition: 18:20
Presentation/result/management discussed w/ accepting MD/DO: Hospitalist
Condition: Serious
Discharge Problem:
Acute renal failure (ARF), Hypokalemia
Prescriptions:
No Action
lamotrigine 100 MG tablet
100 mg PO BID
ezetimibe 10 MG tablet
10 mg PO HS
rosuvastatin 10 MG tablet
10 mg PO DAILY
aspirin 81 MG tablet,delayed release (DR/EC)
81 mg PO DAILY
allopurinol 100 MG tablet
100 mg PO DAILY
isosorbide mononitrate 30 mg Tablet Extended Release 24 Hr
30 mg PO BID
montelukast [Singulair] 10 mg Tablet
10 mg PO UD
Rx Instructions:
04/20/2023, take the night before, night of, and night after Darzalex infusion.
gabapentin [Neurontin] 100 mg Capsule
100 mg PO TID
acyclovir 400 mg Tablet
400 mg PO BID
dexamethasone 4 mg Tablet
4 mg PO UD
Rx Instructions:
04/20/2023, take the day after Darzalex infusion and for 2 days after.
Darzalex 20 mg/mL Solution
0 mg IV QMONTH
risperidone 0.5 mg Tablet
0.25 mg PO HS
Venclexta 100 mg Tablet
200 mg PO DAILY
Eliquis 5 mg tablet
5 mg PO BID
hydralazine 25 mg Tablet
50 mg PO BID Qty: 60 0RF
furosemide 80 mg Tablet
80 mg PO BID@0800,1600 Qty: 60 0RF
carvedilol [Coreg] 3.125 mg tablet
3.125 mg PO DAILY
Referrals:
Bang Lambert III, DO [Family Provider] -
Interventions
Interventions:
*Risk Screen - Suicide Last Done: 06/01/23 14:39
*General Assessment Last Done: 06/01/23 14:39
*Neglect/Abuse Screening Last Done: 06/01/23 16:33
*ED COVID-19 Vaccine History Last Done: 06/01/23 16:33
[2023-06-01 17:09] LABS: % Basophils 0.6 % (0-2); % Eosinophils 0.1 % (0-6); % Immature Granulocytes 0.3 % (0-0.5); % Lymphocytes 6.5 % (20.5-51.1); % Monocytes 8.6 % (1.7-9.3); % Neutrophils 83.9 % (42.2-75.2); Absolute Lymphocytes 0.4 10^3/uL (1.2-3.4); Absolute Monocytes 0.6 10^3/uL (0.1-0.6); Absolute Neutrophils 5.7 10^3/uL (1.4-6.5); Hematocrit 36.1 % (39.0-52.0); Hemoglobin 12.5 g/dL (13.0-18.0); Mean Corp Hgb Conc. 34.6 g/dL (33.0-37.0); Mean Corpuscular Hgb 31.6 pg (27.0-31.0); Mean Corpuscular Volume 91.2 fL (80.0-94.0); Mean Platelet Volume 10.7 fL (7.4-10.4); Nucleated Red Blood Cells % 0 % (-); Platelet Count 189 10^3/uL (130-400); Red Blood Cell Count 3.96 10^6/uL (4.70-6.10); Red Cell Dist. Width 14.3 % (11.5-14.5); White Blood Cell Count 6.8 10^3/uL (4.8-10.8)
[2023-06-01 17:23] LABS: ALT (SGPT) 14 U/L (0-50); AST (SGOT) 35 U/L (17-59); Albumin 4.1 g/dl (3.5-5.0); Alkaline Phosphatase 106 U/L (38-126); Calcium 9.1 mg/dl (8.4-10.2); Carbon Dioxide 38 mmol/L (22-30); Chloride 82 mmol/L (98-107); Estimated Creatinine Clearance 19 ml/min; Glucose 125 mg/dl (70-99); Potassium 2.7 mmol/L (3.5-5.1); Sodium 131 mmol/L (135-145); Total Bilirubin 0.8 mg/dl (0.2-1.3); Total Protein 7.1 g/dl (6.3-8.2); eGFR 16.53
[2023-06-01 17:32] LABS: Blood Urea Nitrogen 151 mg/dl (9-20)
[2023-06-01] MEDS: NSS with KCL 40 MEQ 1000 IV (19:20)
[2023-06-01] MEDS: KCL ELIXIR 40 MEQ PO (19:20)
--- NOTE | 2023-06-01 20:35 | HPS.HSE ---
Family Physician
-
Family Physician: Bang Lambert
Chief Complaint
-
Sent by outpatient physician due to abnormal blood work
History of Present Illness
72-year-old male with past medical history of CAD status post cardiac stents, Cancer, paroxysmal atrial fibrillation, Second-degree AV block, Mobitz type 1, heart failure with preserved ejection fraction, HTN, Hypercholesterolemia, [place], CKD Stage 3b,
recurrent left pleural effusion, amyloidosis and multiple myeloma presented to the emergency room because his primary care provider advised him to do so, due to abnormal outpatient blood work. Patient was having blood work performed prior to
receiving chemotherapy for multiple myeloma and based on the blood work results he told that is kidney function tests were abnormal. Patient does have some chronic changes to his kidney test that he does not know his baseline creatinine. Patient's
Metolazone which he was on, was recently discontinued (3 days ago) - he had taken it for about a week.
Medical History
Past Medical History
Past Medical History: Reports Other (As per HPI above)
Past Surgical History: Reports Cardiac (Stents) and Orthopedic
Social History
Tobacco: Former Smoker
Alcohol: Occasional
Family History
Family History: Not pertinent
Allergies / Home Medications
Allergies reflects when Allergies were last updated in [email or web address].
Home Medications with original date entered in [email or web address]
Allergy/Medication List:
Allergies
Allergy/AdvReac Type Severity Reaction Status Date / Time
atorvastatin Allergy MUSCLE Verified 06/01/23 14:39
CRAMPS
Cephalosporins Allergy Unknown Verified 06/01/23 14:39
coconut Allergy Unknown Verified 06/01/23 14:39
penicillin V Allergy Vomiting Verified 06/01/23 14:39
Penicillins Allergy Unknown Verified 06/01/23 14:39
pregabalin [From Lyrica] Allergy Tongue Verified 06/01/23 14:39
Swelling
simvastatin Allergy Unknown Verified 06/01/23 14:39
Kxljuoq-YXS-YwY Reductase Allergy MUSCLE Verified 06/01/23 14:39
Inhibitor CRAMPS
[Xniguef-Gtk-Sba Reductase
Inhibitor]
Sulfa (Sulfonamide Allergy Unknown Verified 06/01/23 14:39
Antibiotics)
Home Medications
lamotrigine 100 mg tablet 100 mg PO BID Mental health 07/24/19
ezetimibe 10 mg tablet 10 mg PO HS High cholesterol 08/26/19
rosuvastatin 10 mg tablet 10 mg PO DAILY High cholesterol 08/26/19
aspirin 81 mg tablet,delayed release 81 mg PO DAILY Blood clot prevention/tx 08/27/19
allopurinol 100 mg tablet 100 mg PO DAILY Gout 06/15/20
gabapentin 100 mg capsule (Neurontin) 100 mg PO TID Pain 09/26/21
isosorbide mononitrate 30 mg tablet,extended release 24 hr 30 mg PO BID ANGINA 09/26/21
montelukast 10 mg tablet (Singulair) 10 mg PO UD bone pain prevention 09/26/21
acyclovir 400 mg tablet 400 mg PO BID Infection 01/03/23
dexamethasone 4 mg tablet 4 mg PO UD Anti-Inflammatory 01/03/23
apixaban 5 mg tablet (Eliquis) 5 mg PO BID Blood Clot Prevention/Tx 04/20/23
daratumumab 20 mg/mL intravenous solution (Darzalex) 0 mg IV QMONTH Cancer 04/20/23
risperidone 0.5 mg tablet 0.25 mg PO HS Neurological Condition 04/20/23
venetoclax 100 mg tablet (Venclexta) 200 mg PO DAILY Cancer 04/20/23
furosemide 80 mg tablet 80 mg PO BID@0800,1600 #60 tabs 04/24/23
hydralazine 25 mg tablet 50 mg PO BID #60 tabs 04/24/23
carvedilol 3.125 mg tablet (Coreg) 3.125 mg PO DAILY 06/01/23
Review of Systems
-
A 12 point ROS was completed and negative except as noted: Yes
Physical Exam
Vital Signs
Vital Signs
Temp Pulse Resp BP Pulse Ox
98.2 F 73 20 103/64 95
06/01/23 14:39 06/01/23 14:39 06/01/23 14:39 06/01/23 14:39 06/01/23 14:39
Physical Exam
General: No Apparent Distress
HEENT: NormoCephalic
Respiratory: Clear
Cardiac: S1/S2 and Irregular Rhythm
GI: Soft, Non Tender and Normal Bowel Sounds
Musculoskeletal: No Cyanosis
Skin: Warm and Dry
Neuro: Awake and Alert
Psych: Calm
Laboratory Results
-
06/01/23 16:53
06/01/23 16:53
Laboratory Results
Total Bilirubin 0.8 mg/dl (0.2-1.3) 06/01/23 16:53
AST 35 U/L (17-59) 06/01/23 16:53
ALT 14 U/L (0-50) 06/01/23 16:53
Alkaline Phosphatase 106 U/L (38-126) 06/01/23 16:53
Impression/Plan
-
Assessment/Plan
Severe Hypokalemia
Hyponatremia
OLIVIA on CKD Stage 3b
-IV fluids and potassium as ordered by ER provider after discussing with on-call senior agricultural assistant
-Recent Metolazone use on top of the usual Lasix could be contributing
-Check another BMP tonight
-Check magnesium tonight
-Nephrology consulted, recommendations appreciated
Mild Bibasilar Atelectasis on CXR on June 01, 2023
CAD status post cardiac stents
History of Myocardial Infarction
-Continue Imdur
Paroxysmal atrial fibrillation
-Continue Eliquis and Coreg
Second-degree AV block Mobitz type 1
Pause on Telemetry on in early 2023 hospitalization
-Coreg was decreased from 3.125 mg BID to 3.125 mg daily
Heart failure with preserved ejection fraction
-Continue home Furosemide 80 mg PO BID
-Continue daily weights and I's and O's
-Monitor potassium, magnesium, BMP closely
Hypertension
-Continue Hydralazine and Coreg
Hypercholesterolemia
-Continue Ezetimibe
Normocytic Anemia
-Monitor CBC
Recurrent left pleural effusion
Amyloidosis
Multiple Myeloma
Chemotherapy-induced neuropathy
DVT Prophylaxis: Eliquis
Severe hypokalemia and significant OLIVIA on CKD needing IV fluids and potassium replacement is a high-risk encounter.
[2023-06-01] MEDS: IMDUR (EXTENDED RELEASE) 30 MG PO (23:07)
[2023-06-01] MEDS: LAMICTAL 100 MG PO (23:07)
[2023-06-01] MEDS: ELIQUIS 5 MG PO (23:07)
[2023-06-01] MEDS: ZETIA 10 MG PO (23:07)
[2023-06-01] MEDS: RISPERDAL 0.25 MG PO (23:07)
[2023-06-01] MEDS: NEURONTIN 100 MG PO (23:07)
--- NOTE | 2023-06-01 23:12 | PTCARENOTE ---
Pt transferred from ED. Pt AAOX3, VSS, able to make needs known. Pt oriented to unit, call angelo within reach, bed in lowest position. Will continue with current plan.
[2023-06-02 01:15] LABS: Chloride 86 mmol/L (98-107); Estimated Creatinine Clearance 20 ml/min; Glucose 126 mg/dl (70-99); Magnesium 2.4 mg/dl (1.6-2.3); Potassium 3.3 mmol/L (3.5-5.1); Sodium 136 mmol/L (135-145); eGFR 17.67
[2023-06-02 01:25] LABS: Blood Urea Nitrogen 148 mg/dl (9-20); Carbon Dioxide 36 mmol/L (22-30)
[2023-06-02] MEDS: NSS with KCL 40 MEQ 1000 IV ×2 (04:57→12:18)
[2023-06-02 05:32] LABS: % Basophils 0.7 % (0-2); % Eosinophils 0.7 % (0-6); % Immature Granulocytes 0.3 % (0-0.5); % Lymphocytes 9.9 % (20.5-51.1); % Monocytes 9.7 % (1.7-9.3); % Neutrophils 78.7 % (42.2-75.2); Absolute Lymphocytes 0.6 10^3/uL (1.2-3.4); Absolute Monocytes 0.6 10^3/uL (0.1-0.6); Absolute Neutrophils 4.6 10^3/uL (1.4-6.5); Hematocrit 35.5 % (39.0-52.0); Hemoglobin 12.1 g/dL (13.0-18.0); Mean Corp Hgb Conc. 34.1 g/dL (33.0-37.0); Mean Corpuscular Hgb 31.8 pg (27.0-31.0); Mean Corpuscular Volume 93.4 fL (80.0-94.0); Mean Platelet Volume 10.6 fL (7.4-10.4); Nucleated Red Blood Cells % 0 % (-); Platelet Count 191 10^3/uL (130-400); Red Cell Dist. Width 14.4 % (11.5-14.5); White Blood Cell Count 5.9 10^3/uL (4.8-10.8)
[2023-06-02 05:59] LABS: Calcium 8.8 mg/dl (8.4-10.2); Carbon Dioxide 36 mmol/L (22-30); Chloride 89 mmol/L (98-107); Estimated Creatinine Clearance 20 ml/min; Glucose 111 mg/dl (70-99); Sodium 135 mmol/L (135-145)
[2023-06-02 06:00] VITALS: BMI 22.8
[2023-06-02 06:07] LABS: Blood Urea Nitrogen 147 mg/dl (9-20)
[2023-06-02 07:40] VITALS: BP 132/69
[2023-06-02] MEDS: KCL 40 MEQ PO (08:15)
[2023-06-02] MEDS: APRESOLINE 50 MG PO ×2 (08:15→19:35)
[2023-06-02] MEDS: CRESTOR 10 MG PO (08:16)
[2023-06-02] MEDS: ASPIR LOW (ENTERIC COATED) 81 MG PO (08:16)
[2023-06-02] MEDS: ELIQUIS 5 MG PO ×2 (08:16→19:36)
[2023-06-02] MEDS: COREG 3.125 MG PO (08:16)
[2023-06-02] MEDS: NEURONTIN 100 MG PO ×3 (08:17→21:05)
[2023-06-02] MEDS: IMDUR (EXTENDED RELEASE) 30 MG PO ×2 (08:17→19:36)
[2023-06-02] MEDS: ZYLOPRIM 100 MG PO (08:18)
[2023-06-02] MEDS: ZOVIRAX 400 MG PO ×2 (08:18→19:36)
[2023-06-02] MEDS: LASIX 80 MG PO (08:18)
[2023-06-02] MEDS: LAMICTAL 100 MG PO ×2 (08:23→19:36)
--- NOTE | 2023-06-02 11:38 | W.CON.NEPH ---
Consultation
-
Date/Time Consultation Requested: 06/01/232127
Date/Time Consultation Performed: 06/02/23 1010
Requesting Provider: Heath Willett
Performing Provider: Patricia Christianson
Reason for Consultation: OLIVIA with CKD
Medical History
-
Chief Complaint: abnormal labs
History of Present Illness:
72-year-old male with past medical history of CAD status post cardiac stents on ASA, paroxysmal atrial fibrillation on Eliquis, Second-degree AV block, Mobitz type 1 low dose of coreg, heart failure with preserved ejection fraction on lasix 80mg
BID, HTN on hydralazine, Hypercholesterolemia, CKD Stage 4 basleine cr 1.8-mid 2s follows Dr Morris, recurrent left pleural effusion previous thoracentesis, amyloidosis and multiple myeloma on chemo with Dr Crocker who presented to the emergency room
because of abnormal outpatient blood work prior to chemo.� Cr noted at 3.7, BUN 120s, K 3. He had admit in Apr for CHF flare and at that time lasix dose increased and there is addition of Metolazone daily for after d/c by cards. However he did not
felt well hence this was stopped 3days ago and he only took it for 1week, lost 5lbs. He denies any dizziness or falls. No CP or SOB or diarrhea, no dysuria. NO n/v. He just felt very tired. On admit cr was 3.7, BUN 151, K 2.8, bicarb 38. Nephrology
consulted and started on NS with kcl and po kcl.
Past Medical History
CAD status post cardiac stents, Cancer, paroxysmal atrial fibrillation, Second-degree AV block, Mobitz type 1, heart failure with preserved ejection fraction, HTN, Hypercholesterolemia, [place], CKD Stage 4, recurrent left pleural effusion, amyloidosis
and multiple myeloma
Social History
Tobacco: Former Smoker
Alcohol: Occasional
Family History
no CKD
Family History: Not Pertinent
Allergies / Home Medications
Allergy/AdvReac Type Severity Reaction Status Date / Time
atorvastatin Allergy MUSCLE Verified 06/01/23 14:39
CRAMPS
Cephalosporins Allergy Unknown Verified 06/01/23 14:39
coconut Allergy Unknown Verified 06/01/23 14:39
penicillin V Allergy Vomiting Verified 06/01/23 14:39
Penicillins Allergy Unknown Verified 06/01/23 14:39
pregabalin [From Lyrica] Allergy Tongue Verified 06/01/23 14:39
Swelling
simvastatin Allergy Unknown Verified 06/01/23 14:39
Yyhkyxj-SIL-VbM Reductase Allergy MUSCLE Verified 06/01/23 14:39
Inhibitor CRAMPS
[Scltzvn-Gia-Aby Reductase
Inhibitor]
Sulfa (Sulfonamide Allergy Unknown Verified 06/01/23 14:39
Antibiotics)
Medication Instructions Recorded Confirmed Type
lamotrigine 100 mg tablet 100 mg PO BID Mental health 07/24/19 06/01/23 History
ezetimibe 10 mg tablet 10 mg PO HS High cholesterol 08/26/19 06/01/23 History
rosuvastatin 10 mg tablet 10 mg PO DAILY High cholesterol 08/26/19 06/01/23 History
aspirin 81 mg tablet,delayed 81 mg PO DAILY Blood clot 08/27/19 06/01/23 History
release prevention/tx
allopurinol 100 mg tablet 100 mg PO DAILY Gout 06/15/20 06/01/23 History
gabapentin 100 mg capsule 100 mg PO TID Pain 09/26/21 06/01/23 History
(Neurontin)
isosorbide mononitrate 30 mg 30 mg PO BID ANGINA 09/26/21 06/01/23 History
tablet,extended release 24 hr
montelukast 10 mg tablet 10 mg PO UD bone pain prevention 09/26/21 06/01/23 History
(Singulair)
acyclovir 400 mg tablet 400 mg PO BID Infection 01/03/23 06/01/23 History
dexamethasone 4 mg tablet 4 mg PO UD Anti-Inflammatory 01/03/23 06/01/23 History
apixaban 5 mg tablet (Eliquis) 5 mg PO BID Blood Clot 04/20/23 06/01/23 History
Prevention/Tx
daratumumab 20 mg/mL intravenous 0 mg IV QMONTH Cancer 04/20/23 06/01/23 History
solution (Darzalex)
risperidone 0.5 mg tablet 0.25 mg PO HS Neurological 04/20/23 06/01/23 History
Condition
venetoclax 100 mg tablet 200 mg PO DAILY Cancer 04/20/23 06/01/23 History
(Venclexta)
furosemide 80 mg tablet 80 mg PO BID@0800,1600 #60 tabs 04/24/23 06/01/23 Rx
hydralazine 25 mg tablet 50 mg PO BID #60 tabs 04/24/23 06/01/23 Rx
carvedilol 3.125 mg tablet (Coreg) 3.125 mg PO DAILY Blood Pressure 06/01/23 06/01/23 History
Review of Systems
-
All complete 12 point ROS have been inquired and found negative other than stated in HPI
Physical Exam
Vital Signs
Vital Signs
Temp Pulse Resp BP Pulse Ox
97.7 F 66 16 132/69 98
06/02/23 07:40 06/02/23 07:40 06/02/23 07:40 06/02/23 07:40 06/02/23 07:40
Lab Results
WBC 5.9 10^3/uL (4.8-10.8) 06/02/23 04:52
RBC 3.80 10^6/uL (4.70-6.10) L 06/02/23 04:52
Hgb 12.1 g/dL (13.0-18.0) L 06/02/23 04:52
Hct 35.5 % (39.0-52.0) L 06/02/23 04:52
Plt Count 191 10^3/uL (130-400) 06/02/23 04:52
Sodium 135 mmol/L (135-145) 06/02/23 04:52
Potassium 3.0 mmol/L (3.5-5.1) L 06/02/23 04:52
Chloride 89 mmol/L (98-107) L 06/02/23 04:52
Carbon Dioxide 36 mmol/L (22-30) H 06/02/23 04:52
BUN 147 mg/dl (9-20) H* 06/02/23 04:52
Creatinine 3.4 mg/dL (0.7-1.3) H 06/02/23 04:52
eGFR 18.30 06/02/23 04:52
Glucose 111 mg/dl (70-99) H 06/02/23 04:52
Calcium 8.8 mg/dl (8.4-10.2) 06/02/23 04:52
Albumin 4.1 g/dl (3.5-5.0) 06/01/23 16:53
CXR 06/01/23
COMPARISON: 04/20/2023
FINDINGS:
Stable right chest wall [facility].
Lungs: Stable right hemidiaphragm elevation. Mild bibasilar probable atelectasis. Interval resolution of previously seen bilateral pleural effusions. No pleural effusion or pneumothorax.
Heart: Cardiac and mediastinal contours are unremarkable. No overt pulmonary vascular congestion.
Osseous structures: No acute abnormalities.
IMPRESSION:
Mild bibasilar atelectasis.
Echo 04/2023:
CONCLUSIONS
�Moderate concentric left ventricular hypertrophy.� Mildly reduced left
�ventricular systolic function. Left ventricular ejection fraction is 46%, by
�Zavala' s method.
�GLS Endo peak avg.= -6.4 %.
�Normal right ventricular size and function. Right ventricular hypertrophy.
�No significant valvular disease.
�Compared to previous echo 01/09/23, the ejection fraction had decreased from
�normal to mildly decreased. Once again GLS and e' are decreased.
EKG:
ATRIAL FIBRILLATION WITH VENTRICULAR ESCAPE COMPLEXES
LEFT AXIS DEVIATION
NON-SPECIFIC INTRA-VENTRICULAR CONDUCTION BLOCK
MINIMAL VOLTAGE CRITERIA FOR LVH, MAY BE NORMAL VARIANT ( Maben product )
CANNOT RULE OUT SEPTAL INFARCT (CITED ON OR BEFORE 20-APR-2023)
T WAVE ABNORMALITY, CONSIDER LATERAL ISCHEMIA
ABNORMAL ECG
WHEN COMPARED WITH ECG OF 20-APR-2023 10:04,
NO SIGNIFICANT CHANGE
Confirmed by TALISHA DOUGLASS MD ([id number]) on 06/02/2023 8:49:01 AM
Physical Exam
General: Awake, Alert, Oriented, AOx3, No Distress and Nontoxic
HEENT: EOMI and Anicteric
Respiratory: Clear
Cardiac: S1/S2 and No Edema
Abdomen: Soft, Nontender and Nondistended
Musculoskeletal: No Cyanosis and No Edema
Skin: No Rash and Warm
Neuro: Nonfocal/Grossly Intact
Psych: Mood/afflect pleasant, Insight/judgement good and Appropriate
Assessment/Plan
-
IMP:
OLIVIA on CKD Stage 4 baseline cr 1.8-mid 2s [address] Dr Morris
Severe Hypokalemia
Metabolic alkalosis
Hyponatremia
CAD status post cardiac stents
Paroxysmal atrial fibrillation
Second-degree AV block Mobitz type 1
Heart failure with preserved ejection fraction
Hypertension
Hypercholesterolemia
Normocytic Anemia
Recurrent left pleural effusion
Amyloidosis
Multiple Myeloma
History of Lyme's disease
Chemotherapy-induced neuropathy
Mood disorder
Plan:
A/w abnormal labs out pt for chemo
OLIVIA -felt to be from recent escalation of diuretics, now off Metolazone
clinically he looks no hypervolemic hence will hold lasix too
wt is larissa this admit
check U studies and follow bladder scan
cr improving slowly-would cont IVF with potassium 1lit and recheck labs later today
Had sig met alkalosis from diuresis, cont kcl replacement
BP improving and stable on home meds
no emergent need of HD
d/w pt and nursing
Data Reviewed
-
Radiology: Report Reviewed by me
Labs: Labs Reviewed by me, Discussed with Nurse and Discussed with Patient
Old Records: Reviewed
[2023-06-02 11:40] VITALS: BP 115/59
[2023-06-02 14:39] LABS: Urine Albumin Trace (Neg - Trace); Urine Bilirubin Negative (Negative); Urine Character Clear (Clear); Urine Color Yellow; Urine Glucose Negative (Negative); Urine Ketone Negative (Negative); Urine Leukocyte Negative (Negative); Urine Nitrite Negative (Negative); Urine Occult Blood Negative (Negative); Urine Urobilinogen Negative (Neg - 1+)
[2023-06-02 15:26] LABS: Urine Sodium 56 mmol/L (30-90)
[2023-06-02 16:45] VITALS: BP 119/64
--- NOTE | 2023-06-02 17:34 | W.PN.HOSP.TC ---
Today's Communication/Plan
-
Electrolytes improving
Hold diuretics
Recheck electrolytes
Assessment / Plan
Assessment / Plan
Physical Exam
General: No Apparent Distress
HEENT: Normocephalic
Respiratory: Clear
Cardiac: S1/S2 and Irregular Rhythm
GI: Soft, Non Tender and Normal Bowel Sounds
Musculoskeletal: No Cyanosis
Skin: Warm and Dry
Neuro: Awake and Alert
Psych: Calm
Assessment/Plan
Severe Hypokalemia
Hyponatremia
OLIVIA on CKD Stage 3b
-Continue potassium replacement
-Recent Metolazone use on top of the usual Lasix is suspected to be contributing
-Recheck BMP and Magnesium
-Nephrology consulted, recommendations appreciated
-HOLD Lasix
Mild Bibasilar Atelectasis on CXR on June 01, 2023
CAD status post cardiac stents
History of Myocardial Infarction
-Continue Imdur
Paroxysmal atrial fibrillation
-Continue Eliquis and Coreg
Second-degree AV block Mobitz type 1
Pause on Telemetry on in early 2023 hospitalization
-Coreg was decreased from 3.125 mg BID to 3.125 mg daily
Heart failure with preserved ejection fraction
-Hold home Lasix as patient does not look hypervolemic
-Continue daily weights and I's and O's
-Monitor potassium, magnesium, BMP closely
Hypertension
-Continue Hydralazine and Coreg
Hypercholesterolemia
-Continue Ezetimibe
Normocytic Anemia
-Monitor CBC
Recurrent left pleural effusion
Amyloidosis
Multiple Myeloma
Chemotherapy-induced neuropathy
DVT Prophylaxis: Eliquis
Anticipated Discharge: 24 - 48 hours
Subjective/Interval History
-
Date of Service: June 02, 2023
Patient was seen and examined. He denied chest pain, dizziness or any other symptoms or complaints.
Objective Data
-
Labs:
Laboratory Results
06/02/23 06/02/23
04:52 18:00
WBC 5.9
Hgb 12.1 L
Hct 35.5 L
Plt Count 191
Sodium 135 Pending
Potassium 3.0 L Pending
Chloride 89 L Pending
Carbon Dioxide 36 H Pending
BUN 147 H* Pending
Creatinine 3.4 H Pending
Glucose 111 H Pending
Calcium 8.8 Pending
Vital Signs:
Vital Signs
Temp Pulse Resp BP Pulse Ox
98.4 F 70 16 119/64 96
06/02/23 16:45 06/02/23 16:45 06/02/23 16:45 06/02/23 16:45 06/02/23 16:45
I&O
06/01/23 06/02/23 06/03/23
06:59 06:59 06:59
Intake Total 1240 / 1240 1310 / 1310
Output Total 700 / 700 1450 / 1450
Balance 540 / 540 -140 / -140
[2023-06-02 19:06] LABS: Calcium 8.8 mg/dl (8.4-10.2); Carbon Dioxide 37 mmol/L (22-30); Chloride 88 mmol/L (98-107); Estimated Creatinine Clearance 21 ml/min; Glucose 134 mg/dl (70-99); Potassium 3.4 mmol/L (3.5-5.1); Sodium 133 mmol/L (135-145); eGFR 18.97
[2023-06-02 19:29] VITALS: BP 121/68
[2023-06-02 19:36] LABS: Blood Urea Nitrogen 138 mg/dl (9-20)
[2023-06-02] MEDS: ZETIA 10 MG PO (21:05)
[2023-06-02] MEDS: RISPERDAL 0.25 MG PO (21:06)
[2023-06-02 22:54] VITALS: BP 136/68
[2023-06-03] MEDS: NSS with KCL 40 MEQ 1000 IV (02:12)
[2023-06-03 03:00] VITALS: BP 116/63
[2023-06-03 06:00] VITALS: BMI 23.2
[2023-06-03 06:01] LABS: % Basophils 0.9 % (0-2); % Eosinophils 0.5 % (0-6); % Immature Granulocytes 0.4 % (0-0.5); % Lymphocytes 11.4 % (20.5-51.1); % Monocytes 9.7 % (1.7-9.3); % Neutrophils 77.1 % (42.2-75.2); Absolute Basophils 0.1 10^3/uL (0-0.2); Absolute Lymphocytes 0.7 10^3/uL (1.2-3.4); Absolute Monocytes 0.6 10^3/uL (0.1-0.6); Absolute Neutrophils 4.4 10^3/uL (1.4-6.5); Hematocrit 33.4 % (39.0-52.0); Hemoglobin 11.4 g/dL (13.0-18.0); Mean Corp Hgb Conc. 34.1 g/dL (33.0-37.0); Mean Corpuscular Hgb 31.9 pg (27.0-31.0); Mean Corpuscular Volume 93.6 fL (80.0-94.0); Mean Platelet Volume 10.4 fL (7.4-10.4); Nucleated Red Blood Cells % 0 % (-); Platelet Count 183 10^3/uL (130-400); Red Blood Cell Count 3.57 10^6/uL (4.70-6.10); Red Cell Dist. Width 14.4 % (11.5-14.5); White Blood Cell Count 5.7 10^3/uL (4.8-10.8)
[2023-06-03 06:33] LABS: Calcium 8.5 mg/dl (8.4-10.2); Carbon Dioxide 33 mmol/L (22-30); Chloride 94 mmol/L (98-107); Estimated Creatinine Clearance 23 ml/min; Glucose 100 mg/dl (70-99); Potassium 3.7 mmol/L (3.5-5.1); Sodium 134 mmol/L (135-145); eGFR 21.26
[2023-06-03 06:39] LABS: Blood Urea Nitrogen 131 mg/dl (9-20)
[2023-06-03 07:45] VITALS: BP 116/69
[2023-06-03] MEDS: IMDUR (EXTENDED RELEASE) 30 MG PO ×2 (08:00→20:51)
[2023-06-03] MEDS: ZYLOPRIM 100 MG PO (08:00)
[2023-06-03] MEDS: CRESTOR 10 MG PO (08:00)
[2023-06-03] MEDS: LAMICTAL 100 MG PO ×2 (08:00→20:53)
[2023-06-03] MEDS: ZOVIRAX 400 MG PO ×2 (08:00→20:52)
[2023-06-03] MEDS: NEURONTIN 100 MG PO ×3 (08:00→22:36)
[2023-06-03] MEDS: COREG 3.125 MG PO (08:00)
[2023-06-03] MEDS: ELIQUIS 5 MG PO ×2 (08:00→20:51)
[2023-06-03] MEDS: ASPIR LOW (ENTERIC COATED) 81 MG PO (08:01)
[2023-06-03] MEDS: APRESOLINE 50 MG PO ×2 (08:14→21:03)
[2023-06-03 11:03] VITALS: BP 120/67
--- NOTE | 2023-06-03 12:32 | CM ---
Reviewed the chart notes and spoke with the patient at the bedside. The patient is admitted under observational status. The letter was provided and explained. The patient had no questions with regards to the letter.
The patient resides alone in a one story home with two steps to enter. The patient reports no DME/VN/SNF in the past. The [facility] CM continues to be available to patient/family
and is monitoring medical plan for needs at discharge.
Plan: Discharge to home when medically stable. No needs identified at this time.
--- NOTE | 2023-06-03 14:10 | CON.CAR ---
Consultation
Consultation Request
Date/Time Consultation Requested: June 03, 2023 12:15 PM
Date/Time Consultation Performed: June 03, 2023 2:10 PM
Requesting Provider: Hospitalist
Performing Provider: Robinson
Reason for Consultation: Pause noticed on telemetry
Medical History
-
Chief Complaint: Sent from outpatient doctor's office due to abnormal blood work
History of Present Illness:
72-year-old male with past medical history of CAD status post cardiac stents, Cancer, paroxysmal atrial fibrillation, Second-degree AV block, Mobitz type 1, heart failure with preserved ejection fraction, HTN, Hypercholesterolemia, [place], CKD Stage 3b,
recurrent left pleural effusion, amyloidosis and multiple myeloma presented to the emergency room because his primary care provider advised him to do so, due to abnormal outpatient blood work.� Patient was having blood work performed prior to
receiving chemotherapy for multiple myeloma and based on the blood work results he told that is kidney function tests were abnormal.� Patient does have some chronic changes to his kidney test that he does not know his baseline creatinine. Patient's
Metolazone which he was on, was recently discontinued (3 days ago) - he had taken it for about a week.
He has had multiple asymptomatic approximately 2 seconds in duration pauses noted on telemetry. I discussed with patient the significance of this and he tells me that he has no symptoms of lightheadedness dizziness or feeling as if you are to pass
out. He has never had any significant syncope at this time. I discussed that the symptoms would be concerning and possible need for pacemaker. However, he ensures me that he has had none of the symptoms and thus does not need any permanent need
for pacemaker.
Past Medical History
Past Medical History: Other ( CAD status post cardiac stents, Cancer, paroxysmal atrial fibrillation, Second-degree AV block, Mobitz type 1, heart failure with preserved ejection fraction, HTN, Hypercholesterolemia, [place], CKD Stage 3b, recurrent left
pleural effusion, amyloidosis and multiple myeloma)
Past Surgical History: Orthopedic
Social History
Tobacco: Former Smoker
Alcohol: Occasional
Drug: None
Family History
Family History: Reviewed & Not Pertinent
Allergies / Home Medications
Allergy/AdvReac Type Severity Reaction Status Date / Time
atorvastatin Allergy MUSCLE Verified 06/01/23 14:39
CRAMPS
Cephalosporins Allergy Unknown Verified 06/01/23 14:39
coconut Allergy Unknown Verified 06/01/23 14:39
penicillin V Allergy Vomiting Verified 06/01/23 14:39
Penicillins Allergy Unknown Verified 06/01/23 14:39
pregabalin [From Lyrica] Allergy Tongue Verified 06/01/23 14:39
Swelling
simvastatin Allergy Unknown Verified 06/01/23 14:39
Pnegvmo-RZH-PmI Reductase Allergy MUSCLE Verified 06/01/23 14:39
Inhibitor CRAMPS
[Lmbrdah-Qxc-Qeb Reductase
Inhibitor]
Sulfa (Sulfonamide Allergy Unknown Verified 06/01/23 14:39
Antibiotics)
Medication Instructions Recorded Confirmed Type
lamotrigine 100 mg tablet 100 mg PO BID Mental health 07/24/19 06/01/23 History
ezetimibe 10 mg tablet 10 mg PO HS High cholesterol 08/26/19 06/01/23 History
rosuvastatin 10 mg tablet 10 mg PO DAILY High cholesterol 08/26/19 06/01/23 History
aspirin 81 mg tablet,delayed 81 mg PO DAILY Blood clot 08/27/19 06/01/23 History
release prevention/tx
allopurinol 100 mg tablet 100 mg PO DAILY Gout 06/15/20 06/01/23 History
gabapentin 100 mg capsule 100 mg PO TID Pain 09/26/21 06/01/23 History
(Neurontin)
isosorbide mononitrate 30 mg 30 mg PO BID ANGINA 09/26/21 06/01/23 History
tablet,extended release 24 hr
montelukast 10 mg tablet 10 mg PO UD bone pain prevention 09/26/21 06/01/23 History
(Singulair)
acyclovir 400 mg tablet 400 mg PO BID Infection 01/03/23 06/01/23 History
dexamethasone 4 mg tablet 4 mg PO UD Anti-Inflammatory 01/03/23 06/01/23 History
apixaban 5 mg tablet (Eliquis) 5 mg PO BID Blood Clot 04/20/23 06/01/23 History
Prevention/Tx
daratumumab 20 mg/mL intravenous 0 mg IV QMONTH Cancer 04/20/23 06/01/23 History
solution (Darzalex)
risperidone 0.5 mg tablet 0.25 mg PO HS Neurological 04/20/23 06/01/23 History
Condition
venetoclax 100 mg tablet 200 mg PO DAILY Cancer 04/20/23 06/01/23 History
(Venclexta)
furosemide 80 mg tablet 80 mg PO BID@0800,1600 #60 tabs 04/24/23 06/01/23 Rx
hydralazine 25 mg tablet 50 mg PO BID #60 tabs 04/24/23 06/01/23 Rx
carvedilol 3.125 mg tablet (Coreg) 3.125 mg PO DAILY Blood Pressure 06/01/23 06/01/23 History
Review of Systems
-
All other systems: Negative unless noted
Physical Exam
Vital Signs
Temp Pulse Resp BP Pulse Ox
97.9 F 66 18 120/67 96
06/03/23 11:03 06/03/23 11:03 06/03/23 11:03 06/03/23 11:03 06/03/23 11:03
Lab Results
06/03/23 05:42
06/03/23 05:42
Physical Exam
General: Other (Chronically ill-appearing)
HEENT: Normocephalic
Respiratory: Clear and Non Labored Respirations
Cardiac: Irregular Rhythm
GI: Soft
Musculoskeletal: No Clubbing and No Cyanosis
Skin: Warm and Dry
Neuro: AO x 3
Psych: Calm
Impression / Plan
-
72-year-old male with past medical history of CAD status post cardiac stents, Cancer, paroxysmal atrial fibrillation, Second-degree AV block, Mobitz type 1, heart failure with preserved ejection fraction, HTN, Hypercholesterolemia, [place], CKD Stage 3b,
recurrent left pleural effusion, amyloidosis and multiple myeloma presented to the emergency room because his primary care provider advised him to do so, due to abnormal outpatient blood work. Cardiology is consulted for possible pauses noted on
telemetry.
Atrial fibrillation with intermittent ~2s pauses, these have been noted before on telemetry
-Continue carvedilol he is tolerating this and has no significant symptoms of syncope, lightheadedness, dizziness, or passing out
Continue Eliquis
CAD is stable
Heart failure with preserved ejection fraction stable
Hypertension stable
Data Reviewed
-
EKG: Tracing Personally Visualized and interpreted, Discussed with Physician and Discussed with Patient
Medical Tests (Nuc Med, Echo etc): Report Reviewed by me
Labs: Labs Reviewed by me
--- NOTE | 2023-06-03 14:54 | W.PN.NEPH.PH ---
Today's Communication / Plan
-
see plan
Assessment/Plan
-
IMP:
OLIVIA on CKD Stage 4 baseline cr 1.8-mid 2s [address] Dr Morris
Severe Hypokalemia
Metabolic alkalosis
Hyponatremia
CAD status post cardiac stents
Paroxysmal atrial fibrillation
Second-degree AV block Mobitz type 1
Heart failure with preserved ejection fraction
Hypertension
Hypercholesterolemia
Normocytic Anemia
Recurrent left pleural effusion
Amyloidosis
Multiple Myeloma
History of Lyme's disease
Chemotherapy-induced neuropathy
Mood disorder
Plan:
A/w abnormal labs out pt for chemo
OLIVIA -felt to be from recent escalation of diuretics, now off Metolazone
clinically he looks euvolemic hence will hold lasix still
cr and BUN improving slowly , maintain off IVF
wt is increasing slowly
UA bland and renal US with out hydro
improving met alkalosis and k normal
BP stable on home meds
d/w pt and nursing
labs in am
d/c soon as long as renal function improving
-
-
Date of Service: June 03, 2023
CC / HPI / ROS
-
Chief Complaint:
OLIVIA with CKD
History of Present Illness:
cr improving to 3, BUN better in 130s
non oliguric, wt increasing
BP stbale
Review of Systems:
no cp or sob
no n/v
Labs
-
Labs:
WBC 5.7 10^3/uL (4.8-10.8) 06/03/23 05:42
RBC 3.57 10^6/uL (4.70-6.10) L 06/03/23 05:42
Hgb 11.4 g/dL (13.0-18.0) L 06/03/23 05:42
Hct 33.4 % (39.0-52.0) L 06/03/23 05:42
Plt Count 183 10^3/uL (130-400) 06/03/23 05:42
Sodium 134 mmol/L (135-145) L 06/03/23 05:42
Potassium 3.7 mmol/L (3.5-5.1) 06/03/23 05:42
Chloride 94 mmol/L (98-107) L 06/03/23 05:42
Carbon Dioxide 33 mmol/L (22-30) H 06/03/23 05:42
BUN 131 mg/dl (9-20) H* 06/03/23 05:42
Creatinine 3.0 mg/dL (0.7-1.3) H 06/03/23 05:42
eGFR 21.26 06/03/23 05:42
Glucose 100 mg/dl (70-99) H 06/03/23 05:42
Calcium 8.5 mg/dl (8.4-10.2) 06/03/23 05:42
Albumin 4.1 g/dl (3.5-5.0) 06/01/23 16:53
Physical Exam
-
Vital Signs:
Vital Signs
Temp Pulse Resp BP Pulse Ox
97.9 F 66 18 120/67 96
06/03/23 11:03 06/03/23 11:03 06/03/23 11:03 06/03/23 11:03 06/03/23 11:03
Cardiovascular:: Regular rate and rhythm
Respiratory:: Bilateral: CTA
Lung Excursion:: Normal
Abdomen:: Nontender and Soft
Extremity Edema:: None: Bilateral:
Viera Catheter: No
[2023-06-03 15:41] VITALS: BP 108/55
--- NOTE | 2023-06-03 16:44 | W.PN.HOSP.TC ---
Today's Communication/Plan
-
Discussed with nephrology who mentioned that patient wants to be monitored for one more night
Can discharge tomorrow if labs look good and no new events
Assessment / Plan
Assessment / Plan
Physical Exam
General: No Apparent Distress
HEENT: Normocephalic
Respiratory: Clear
Cardiac: S1/S2 and Irregular Rhythm
GI: Soft, Non Tender and Normal Bowel Sounds
Musculoskeletal: No Cyanosis
Skin: Warm and Dry
Neuro: Awake and Alert
Psych: Calm
Assessment/Plan
Severe Hypokalemia
Hyponatremia
OLIVIA on CKD Stage 3b
-Continue potassium replacement as needed; K has significantly improved
-Recent Metolazone use on top of the usual Lasix is suspected to be contributing
-Recheck BMP and Magnesium
-Nephrology consulted, recommendations appreciated
-HOLD Lasix
Mild Bibasilar Atelectasis on CXR on June 01, 2023
CAD status post cardiac stents
History of Myocardial Infarction
-Continue Imdur
Paroxysmal atrial fibrillation
-Continue Eliquis and Coreg
Second-degree AV block Mobitz type 1
Pause on Telemetry on in early 2023 hospitalization
Atrial fibrillation with intermittent ~2s pauses on telemetry, these have been noted before on telemetry
-Coreg was decreased from 3.125 mg BID to 3.125 mg daily -- okay to continue the once daily dose as per cardiology
-See cardiology note from June 03, 2023
Heart failure with preserved ejection fraction
-Hold home Lasix as patient does not look hypervolemic
-Continue daily weights and I's and O's
-Monitor potassium, magnesium, BMP closely
Hypertension
-Continue Hydralazine and Coreg
Hypercholesterolemia
-Continue Ezetimibe
Normocytic Anemia
-Monitor CBC
Recurrent left pleural effusion
Amyloidosis
Multiple Myeloma
Chemotherapy-induced neuropathy
DVT Prophylaxis: Eliquis
Anticipated Discharge: Within 24 hours
Subjective/Interval History
-
Date of Service: June 03, 2023
Patient was seen and examined. He reported no new symptoms or complaints.
Objective Data
-
Labs:
Laboratory Results
06/03/23
05:42
WBC 5.7
Hgb 11.4 L
Hct 33.4 L
Plt Count 183
Sodium 134 L
Potassium 3.7
Chloride 94 L
Carbon Dioxide 33 H
BUN 131 H*
Creatinine 3.0 H
Glucose 100 H
Calcium 8.5
Vital Signs:
Vital Signs
Temp Pulse Resp BP Pulse Ox
98.3 F 67 20 108/55 96
06/03/23 15:41 06/03/23 15:41 06/03/23 15:41 06/03/23 15:41 06/03/23 15:41
I&O
06/02/23 06/03/23 06/04/23
06:59 06:59 06:59
Intake Total 1240 / 1240 2390 / 2390 480 / 480
Output Total 700 / 700 2600 / 2600 250 / 250
Balance 540 / 540 -210 / -210 230 / 230
[2023-06-03 20:00] VITALS: BP 137/75
[2023-06-03] MEDS: RISPERDAL 0.25 MG PO (22:35)
[2023-06-03] MEDS: ZETIA 10 MG PO (22:36)
[2023-06-03 22:50] VITALS: BP 107/55
[2023-06-04 02:53] VITALS: BP 131/72
[2023-06-04 06:00] VITALS: BMI 23.2
[2023-06-04 07:25] VITALS: BMI 23.2
[2023-06-04] MEDS: ASPIR LOW (ENTERIC COATED) 81 MG PO (07:26)
[2023-06-04] MEDS: COREG 3.125 MG PO (07:26)
[2023-06-04] MEDS: CRESTOR 10 MG PO (07:26)
[2023-06-04] MEDS: ELIQUIS 5 MG PO (07:27)
[2023-06-04] MEDS: LAMICTAL 100 MG PO (07:27)
[2023-06-04] MEDS: IMDUR (EXTENDED RELEASE) 30 MG PO (07:27)
[2023-06-04] MEDS: APRESOLINE 50 MG PO (07:27)
[2023-06-04] MEDS: ZYLOPRIM 100 MG PO (07:27)
[2023-06-04] MEDS: ZOVIRAX 400 MG PO (07:28)
[2023-06-04] MEDS: NEURONTIN 100 MG PO (07:30)
[2023-06-04 07:54] VITALS: BP 106/63
[2023-06-04 08:54] LABS: % Basophils 0.7 % (0-2); % Eosinophils 0.5 % (0-6); % Immature Granulocytes 0.3 % (0-0.5); % Lymphocytes 10.8 % (20.5-51.1); % Monocytes 10.3 % (1.7-9.3); % Neutrophils 77.4 % (42.2-75.2); Absolute Lymphocytes 0.6 10^3/uL (1.2-3.4); Absolute Monocytes 0.6 10^3/uL (0.1-0.6); Absolute Neutrophils 4.5 10^3/uL (1.4-6.5); Hematocrit 36.7 % (39.0-52.0); Hemoglobin 12.2 g/dL (13.0-18.0); Mean Corp Hgb Conc. 33.2 g/dL (33.0-37.0); Mean Corpuscular Hgb 31.7 pg (27.0-31.0); Mean Corpuscular Volume 95.3 fL (80.0-94.0); Mean Platelet Volume 10.7 fL (7.4-10.4); Nucleated Red Blood Cells % 0 % (-); Platelet Count 188 10^3/uL (130-400); Red Blood Cell Count 3.85 10^6/uL (4.70-6.10); Red Cell Dist. Width 14.4 % (11.5-14.5); White Blood Cell Count 5.8 10^3/uL (4.8-10.8)
[2023-06-04 09:17] LABS: Blood Urea Nitrogen 113 mg/dl (9-20); Calcium 9.1 mg/dl (8.4-10.2); Carbon Dioxide 32 mmol/L (22-30); Chloride 94 mmol/L (98-107); Estimated Creatinine Clearance 24 ml/min; Glucose 95 mg/dl (70-99); Potassium 3.3 mmol/L (3.5-5.1); Sodium 135 mmol/L (135-145); eGFR 22.15
[2023-06-04 11:38] VITALS: BP 102/42
--- NOTE | 2023-06-04 12:09 | W.PN.HOSP.TC ---
Today's Communication/Plan
-
dc
Assessment / Plan
Assessment / Plan
Physical Exam
General: No Apparent Distress
HEENT: Normocephalic
Respiratory: Clear
Cardiac: S1/S2 and Irregular Rhythm
GI: Soft, Non Tender and Normal Bowel Sounds
Musculoskeletal: No Cyanosis
Skin: Warm and Dry
Neuro: Awake and Alert
Psych: Calm
Assessment/Plan
#Severe Hypokalemia
#Hyponatremia/ hypokalemia
#LOIVIA on CKD Stage 3b
-Continue potassium replacement as needed; K has significantly improved
-Recent Metolazone use on top of the usual Lasix is suspected to be contributing
-Recheck BMP and Magnesium
-Nephrology consulted, recommendations appreciated
-Held Lasix
#Mild Bibasilar Atelectasis on CXR on June 01, 2023
#CAD status post cardiac stents
History of Myocardial Infarction
-Continue Imdur
#Paroxysmal atrial fibrillation
-Continue Eliquis and Coreg
#Second-degree AV block Mobitz type 1
Pause on Telemetry on in early 2023 hospitalization
Atrial fibrillation with intermittent ~2s pauses on telemetry, these have been noted before on telemetry
-Coreg was decreased from 3.125 mg BID to 3.125 mg daily -- okay to continue the once daily dose as per cardiology
-See cardiology note from June 03, 2023
#Heart failure with preserved ejection fraction
-Hold home Lasix as patient does not look hypervolemic
-Continue daily weights and I's and O's
-Monitor potassium, magnesium, BMP closely
#Primary Hypertension
-Continue Hydralazine and Coreg
#Hypercholesterolemia
-Continue Ezetimibe
#Normocytic Anemia
-Monitor CBC
#Recurrent left pleural effusion
#Amyloidosis
#Multiple Myeloma
#Chemotherapy-induced neuropathy
DVT Prophylaxis: Eliquis
�Total discharge time spent to see the patient, examine the patient on the floor, review data and lab results, discuss discharge plan with the patient, nursing staff around 65 minutes
Anticipated Discharge: Today
Subjective/Interval History
-
Date of Service: June 04, 2023
No chest pain
No sob
No abd pain
Objective Data
-
Labs:
Laboratory Results
06/04/23
08:11
WBC 5.8
Hgb 12.2 L
Hct 36.7 L
Plt Count 188
Sodium 135
Potassium 3.3 L
Chloride 94 L
Carbon Dioxide 32 H
BUN 113 H*
Creatinine 2.9 H
Glucose 95
Calcium 9.1
Vital Signs:
Vital Signs
Temp Pulse Resp BP Pulse Ox
98.9 F 69 16 102/42 97
06/04/23 11:38 06/04/23 11:38 06/04/23 11:38 06/04/23 11:38 06/04/23 11:38
I&O
06/03/23 06/04/23 06/05/23
06:59 06:59 06:59
Intake Total 2390 / 2390 2160 / 2160
Output Total 2600 / 2600 1950 / 1950
Balance -210 / -210 210 / 210
--- NOTE | 2023-06-04 12:23 | W.PN.NEPH.PH ---
Today's Communication / Plan
-
stable for discharge
replete K
maintain off metolazone
Assessment/Plan
-
IMP:
OLIVIA on CKD Stage 4 baseline cr 1.8-mid 2s follows Dr Morris
Severe Hypokalemia
Metabolic alkalosis
Hyponatremia
CAD status post cardiac stents
Paroxysmal atrial fibrillation
Second-degree AV block Mobitz type 1
Heart failure with preserved ejection fraction
Hypertension
Hypercholesterolemia
Normocytic Anemia
Recurrent left pleural effusion
Amyloidosis
Multiple Myeloma
History of Lyme's disease
Chemotherapy-induced neuropathy
Mood disorder
Plan:
A/w abnormal labs out pt for chemo
OLIVIA -felt to be from recent escalation of diuretics, now off Metolazone
creatinine down to 2.9 and BUN ~113
replete K and discharge off metolazone
clinically he looks euvolemic hence will hold lasix still
cr and BUN improving slowly , maintain off IVF
wt unchanged
UA bland and renal US with out hydro
improving met alkalosis
BP stable on home meds
d/w pt and nursing
labs in am
stable for discharge form renal perspective
-
-
Date of Service: June 04, 2023
CC / HPI / ROS
-
Chief Complaint:
OLIVIA with CKD
History of Present Illness:
cr improving to 2.9, BUN better in 113
K low
BP stable
Review of Systems:
no cp or sob
no n/v
weights stable
Labs
-
Labs:
WBC 5.8 10^3/uL (4.8-10.8) 06/04/23 08:11
RBC 3.85 10^6/uL (4.70-6.10) L 06/04/23 08:11
Hgb 12.2 g/dL (13.0-18.0) L 06/04/23 08:11
Hct 36.7 % (39.0-52.0) L 06/04/23 08:11
Plt Count 188 10^3/uL (130-400) 06/04/23 08:11
Sodium 135 mmol/L (135-145) 06/04/23 08:11
Potassium 3.3 mmol/L (3.5-5.1) L 06/04/23 08:11
Chloride 94 mmol/L (98-107) L 06/04/23 08:11
Carbon Dioxide 32 mmol/L (22-30) H 06/04/23 08:11
BUN 113 mg/dl (9-20) H* 06/04/23 08:11
Creatinine 2.9 mg/dL (0.7-1.3) H 06/04/23 08:11
eGFR 22.15 06/04/23 08:11
Glucose 95 mg/dl (70-99) 06/04/23 08:11
Calcium 9.1 mg/dl (8.4-10.2) 06/04/23 08:11
Albumin 4.1 g/dl (3.5-5.0) 06/01/23 16:53
Physical Exam
-
Vital Signs:
Vital Signs
Temp Pulse Resp BP Pulse Ox
98.9 F 69 16 102/42 97
06/04/23 11:38 06/04/23 11:38 06/04/23 11:38 06/04/23 11:38 06/04/23 11:38
Cardiovascular:: Regular rate and rhythm
Respiratory:: Bilateral: CTA
Lung Excursion:: Normal
Abdomen:: Nontender
Bowel Sounds:: Normal
Extremity Edema:: None: Bilateral:
Viera Catheter: No
[2023-06-04] MEDS: KCL 40 MEQ PO (13:06)
--- NOTE | 2023-06-04 15:17 | W.DCSUMMARY ---
Discharge Summary
Discharge Data
Date of Admission: 06/01/23
Date of Discharge: 06/04/23
-
Pending Results: No
Hospital Course
72 years old male presented to the emergency room due to abnormal outpatient blood work. Patient had history of chronic kidney disease. Creatinine on admission was 3.7. Blood urea nitrogen was 151. Patient was taking 80 mg of Lasix twice a day
in addition to recent use of metolazone. Patient was evaluated by highway commissioner. He was diagnosed with acute kidney injury on chronic kidney disease stage IV. Baseline creatinine 1.8. Patient was following with in [place]. Patient
was diagnosed with metabolic alkalosis and hypokalemia in addition to acute kidney injury. He was given potassium supplement. He was given intravenous fluid. Diuretics were discontinued. Patient remained with normal volume status and his blood
pressure was stable on rest of his home medications. His creatinine started to improve and came down to 2.9 with blood urea nitrogen around 113 upon discharge. He remained hemodynamically stable. Certified Master Safe Technician recommended outpatient follow-up.
Patient was discharged in a stable condition and was given prescription to do blood work within a few days and follow-up with his primary care doctor and primary highway commissioner.
Discharge Plan
-
Patient Disposition: Home (Routine Discharge)
Discharge Diagnosis/Procedures: Acute kidney injury on chronic kidney disease stage IV
Condition: Fair
Diet: As tolerated, Low Fat and No added salt
Referrals:
Nic Olivia MD [Non-Admitting Privileges] - in one to two weeks
Bang Lambert III, DO [Family Provider] -
Prescriptions:
Continued
lamotrigine 100 MG tablet
100 mg PO BID
ezetimibe 10 MG tablet
10 mg PO HS
rosuvastatin 10 MG tablet
10 mg PO DAILY
aspirin 81 MG tablet,delayed release (DR/EC)
81 mg PO DAILY
allopurinol 100 MG tablet
100 mg PO DAILY
isosorbide mononitrate 30 mg Tablet Extended Release 24 Hr
30 mg PO BID
montelukast [Singulair] 10 mg Tablet
10 mg PO UD
Rx Instructions:
04/20/2023, take the night before, night of, and night after Darzalex infusion.
gabapentin [Neurontin] 100 mg Capsule
100 mg PO TID
acyclovir 400 mg Tablet
400 mg PO BID
dexamethasone 4 mg Tablet
4 mg PO UD
Rx Instructions:
04/20/2023, take the day after Darzalex infusion and for 2 days after.
Darzalex 20 mg/mL Solution
0 mg IV QMONTH
risperidone 0.5 mg Tablet
0.25 mg PO HS
Venclexta 100 mg Tablet
200 mg PO DAILY
Eliquis 5 mg tablet
5 mg PO BID
hydralazine 25 mg Tablet
50 mg PO BID Qty: 60 0RF
carvedilol [Coreg] 3.125 mg tablet
3.125 mg PO DAILY
Discontinued
furosemide 80 mg Tablet
80 mg PO BID@0800,1600 Qty: 60 0RF
Discharge Orders:
Discharge Patient (As Directed); Ordered 06/04/23
Ordered By: Cece Hansen
Discharge Date and Time
Discharge Date/Time: 06/04/23 14:30
--- NOTE | 2023-06-04 16:32 | CM ---
Home today no needs.
Plan; Home no needs.
== END 2023-06-04 14:30 | disposition home or self-care (01) ==
LOC: 4 WEST ACU 22:12
PROVIDERS: ADMITTING PHYSICIAN Hospitalist; ATTENDING PHYSICIAN Internal Medicine; CONSULT PHYSICIAN Internal Medicine; CONSULT PHYSICIAN Internal Medicine Cardiovascular Disease; EMERGENCY PHYSICIAN Emergency Medicine; FAMILY PHYSICIAN Internal Medicine
DX: N17.9 Acute kidney failure, unspecified (principal); R79.89 Other specified abnormal findings of blood chemistry; I50.32 Chronic diastolic (congestive) heart failure; E78.00 Pure hypercholesterolemia, unspecified; I25.10 Atherosclerotic heart disease of native coronary artery without angina pectoris; C90.00 Multiple myeloma not having achieved remission; E86.0 Dehydration; E87.5 Hyperkalemia; E85.89 Other amyloidosis; E87.6 Hypokalemia; E87.1 Hypo-osmolality and hyponatremia; I48.0 Paroxysmal atrial fibrillation; T45.1X5A Adverse effect of antineoplastic and immunosuppressive drugs, initial encounter; N18.4 Chronic kidney disease, stage 4 (severe); J98.11 Atelectasis; J90 Pleural effusion, not elsewhere classified; Q61.02 Congenital multiple renal cysts; I44.1 Atrioventricular block, second degree; I13.0 Hypertensive heart and chronic kidney disease with heart failure and stage 1 through stage 4 chronic kidney disease, or unspecified chronic kidney disease; D64.9 Anemia, unspecified; I25.2 Old myocardial infarction; Z79.82 Long term (current) use of aspirin; Z87.891 Personal history of nicotine dependence; Z95.5 Presence of coronary angioplasty implant and graft; Z88.1 Allergy status to other antibiotic agents; Z88.0 Allergy status to penicillin; Z88.2 Allergy status to sulfonamides; Z88.8 Allergy status to other drugs, medicaments and biological substances; Z79.624 Long term (current) use of inhibitors of nucleotide synthesis
CPT/HCPCS: 71046; 76775; 80048; 80053; 81003; 82570; 83735; 84300; 85025; 93005; 96374; 99291; G0378

== ENCOUNTER → 2023-06-05 15:06 | Outpatient (REF) | payer MEDICARE, SELFPAY ==
[2023-06-05 14:20] LABS: % Basophils 0.5 % (0-2); % Eosinophils 0.3 % (0-6); % Immature Granulocytes 0.2 % (0-0.5); % Lymphocytes 8.1 % (20.5-51.1); % Monocytes 12.1 % (1.7-9.3); % Neutrophils 78.8 % (42.2-75.2); Absolute Lymphocytes 0.5 10^3/uL (1.2-3.4); Absolute Monocytes 0.8 10^3/uL (0.1-0.6); Absolute Neutrophils 5.2 10^3/uL (1.4-6.5); Hematocrit 35.2 % (39.0-52.0); Hemoglobin 11.9 g/dL (13.0-18.0); Mean Corp Hgb Conc. 33.8 g/dL (33.0-37.0); Mean Corpuscular Hgb 32.5 pg (27.0-31.0); Mean Corpuscular Volume 96.2 fL (80.0-94.0); Mean Platelet Volume 10.1 fL (7.4-10.4); Platelet Count 173 10^3/uL (130-400); Red Blood Cell Count 3.66 10^6/uL (4.70-6.10); Red Cell Dist. Width 14.4 % (11.5-14.5); White Blood Cell Count 6.5 10^3/uL (4.8-10.8)
[2023-06-05 15:01] LABS: ALT (SGPT) 23 U/L (0-50); AST (SGOT) 49 U/L (17-59); Alkaline Phosphatase 111 U/L (38-126); Blood Urea Nitrogen 94 mg/dl (9-20); Carbon Dioxide 32 mmol/L (22-30); Chloride 93 mmol/L (98-107); Glucose 107 mg/dl (70-99); Potassium 3.7 mmol/L (3.5-5.1); Sodium 132 mmol/L (135-145); Total Bilirubin 0.7 mg/dl (0.2-1.3); Total Protein 6.6 g/dl (6.3-8.2)
== END ==
LOC: OIDL 15:06
PROVIDERS: ATTENDING PHYSICIAN Nurse Practitioner Adult Health
DX: C90.00 Multiple myeloma not having achieved remission (principal)
CPT/HCPCS: 80053; 84550; 85025

== ENCOUNTER 2023-06-14 10:47 | Inpatient (IN) | payer MEDICARE, SELFPAY ==
[2023-06-14] VITALS (11 sets, daily range): BP systolic 110–172; BP diastolic 62–83; BMI 25.7; BMI 24.3
--- NOTE | 2023-06-14 07:07 | ED.GENMED ---
History of Present Illness
General
Chief Complaint: Breathing Problem
Source: patient
Exam Limitations: none
Time Seen by Provider: 06/14/23 06:45
Travel History
Have you had any contact with someone who has COVID-19?: No
Do you have any symptoms of coronavirus? Fever > 100 degrees, chills, cough, shortness of breath, sore throat, loss of taste or smell, muscle aches, or headache?: Yes
Symptoms:: dyspnea, fever
History of Present Illness
History of Present Illness:
24 to 36 hours of progressive shortness of breath. Mild chest tightness with this. Gradual in onset. No pleuritic pain no fever no cough no infectious symptoms. History of pleural effusion requiring thoracentesis.
Past History
Past History
ED Past Medical History: CAD, Cancer, CHF, HTN, Hypercholesterolemia, NV and Other
ED Past Surgical History: Cardiac (Stents X 4) and Orthopedic
Social History
Tobacco: Former smoker
Alcohol: Occasional
Personal:
Living: alone
Employment: Employed
Review of Systems
Review of Systems
All Other Systems: Not applicable
Constitutional: Denies fever
Respiratory: Denies cough
Cardiac: Denies syncope
ABD/GI: Reports no symptoms
Phy Exam
Physical Exam
Physical Exam:
GENERAL: Alert and oriented in no apparent distress
EYE: Orbits normal.
NECK: Supple, no significant adenopathy.
ENT: Pharynx without erythema
CARDIAC: Regular rate and rhythm without any obvious murmurs.
LUNGS: No respiratory distress but bibasilar crackles
ABDOMEN: Soft, without focal tenderness or distention
NEUROLOGICAL: Alert and oriented , grossly non-focal
SKIN: Warm and dry, no rash or lesion, no discoloration, skin intact.
MUSCULOSKELETAL: No edema,no deformity.Good color
PSYCH: Normal and appropriate interaction.
Scores
Heart Failure Risk
Heart Failure Risk Score: Yes
History of Stroke or TIA: No
History of intubation for respiratory distress: No
Heart rate on ED arrival >/= 110: No
SaO2 <90% on arrival on room air: No
HR >/=110 during 3min walk test (or too ill to perform test): Yes
ECG has acute ischemic changes: No
Urea >/=12mmol/L (BUN 33.6mg/dL): Yes
Serum CO2>/=35mmol/L: No
Troponin I or T elevated to NV Level (0.4mg/dL): No
NT-proBNP >/=5,000ng/L (5,000pg/ml): Yes
HF Risk Score: 4
Admission Status: HIGH RISK 26.1% Consider SNF treatment or admission to hospital
Course
Orders/Labs/Results
Orders:
Orders
06/14/23 06:55
IV Insert/Care/Rem.- Treatment PRN
Pulse Ox/cont/shift [RESP] Stat
Quantity: 1
06/14/23 06:56
Electrocardiogram (*1) Stat
Reason for Study: Other
Other Reason for Exam: chest pain
Cardiac Monitoring- Treatment ONCE
EKG- Treatment ONCE
CR Chest - 2 Views Urgent
Comment:
Reason For Exam: Short of breath
06/14/23 06:59
Basic Metabolic Panel Urgent
Complete Blood Count/With Diff Urgent
NT-proBNP Urgent
Troponin I Urgent
06/14/23 10:30
Admit/Transfer Patient As Directed
Co-Sign Provider:
Level of Care: Inpatient admission
Assign to:: Telemetry
Physician / Group: Dr Ford
Diagnosis: CHF
Reason for Telemetry: Subacute Heart Failure
Date to Stop Telemetry: 06/16/23
Time to Stop Telemetry: 11:00
Reason for Hospitalization: pte p/w sob and elevated trop
Expected length of stay greater than two midnights?: Yes
ELOS- Estimated Length of Stay in days: 2
I certify the patient meets the requirements for IP care: Yes
06/14/23 10:33
Code Status As Directed
Resuscitation Status: Full Code
06/14/23 10:38
Furosemide [Lasix] 40 mg IV ONCE ONE
06/14/23 10:39
CARDIOLOGY CONSULT Routine
Consulting Provider: Juan Antonio Almonte
Was physician already notified: Yes
Reason for consult: CHf and elevated trop eval
06/14/23 10:43
Furosemide [Lasix] 40 mg IV NOW STA
06/16/23 11:00
DC Protocol for Telemetry ONCE
Abnormal Lab Results
06/14/23
06:59
RBC 3.22 L 10^6/uL
(4.70-6.10)
Hgb 10.4 L g/dL
(13.0-18.0)
Hct 31.4 L %
(39.0-52.0)
MCV 97.5 H fL
(80.0-94.0)
MCH 32.3 H pg
(27.0-31.0)
RDW 15.6 H %
(11.5-14.5)
Absolute Lymphs (auto) 0.3 L 10^3/uL
(1.2-3.4)
Absolute Monos (auto) 0.7 H 10^3/uL
(0.1-0.6)
Neutrophils % 82.3 H %
(42.2-75.2)
Lymphocytes % 4.8 L %
(20.5-51.1)
Monocytes % 12.2 H %
(1.7-9.3)
BUN 52 H mg/dl
(9-20)
Creatinine 2.0 H mg/dL
(0.7-1.3)
Glucose 104 H mg/dl
(70-99)
Troponin I 0.155 H* ng/ml
06/14/23 06:59
06/14/23 06:59
Vital Signs
Initial and Last Documented VS:
Initial Vital Signs
Temp Pulse Resp BP Pulse Ox
100.2 F 84 28 135/79 98
06/14/23 06:38 06/14/23 06:38 06/14/23 06:38 06/14/23 06:38 06/14/23 06:38
Last Documented Vital Signs
Temp Pulse Resp BP Pulse Ox
100.2 F 73 25 134/62 95
06/14/23 06:38 06/14/23 08:15 06/14/23 08:15 06/14/23 07:04 06/14/23 08:15
MDM/Problems Addressed
Differential Diagnosis Includes:
Progressive shortness of breath over 24 to 36 hours. Some crackles in the bases. Minimal weight gain. Possible CHF versus CHF with effusion. Doubt infectious etiology. Workup in progress.
*Pulse Oximetry
Patient hypoxic: no
*EKG
Interpreted by ED Provider?: Yes
Interpretation: abnormal
Comparison EKG: no changes
Heart Rate: 73
Rate: normal
Rhythm: other (Possible sinus versus atrial fibrillation)
[place]: left axis deviation
QRS Pattern: poor R-wave progression
Ischemia: T-wave inversion
*Critical Care Note
Total Time (30-74mins, 75-104mins- exclusive of procedures): Not Applicable
Data Reviewed
Review of Other/Old Records Reveals: Labs, Records, Radiology Studies, Testing and Discharge Summary
Update Note
Update Note:
Patient is on Lasix starting again this morning. He 80 mg. Discussed with nephrology.
ED Attending Note
-
Portions of this chart may have been created with voice recognition software.� Occasional wrong word or��sound alike� substitutions may have occurred due to the inherent limitations of voice recognition software.
Discharge Plan
Departure
Patient Disposition: Admit
Date of Disposition: 06/14/23
Time of Disposition: 09:40
Presentation/result/management discussed w/ accepting MD/DO: Hospitalist
Discharge Problem:
CHF, Progressive dyspnea, Renal insufficiency
Interventions
Interventions:
*Risk Screen - Suicide Last Done: 06/14/23 06:38
*Neglect/Abuse Screening Last Done: 06/14/23 06:38
*ED COVID-19 Vaccine History Last Done: 06/14/23 06:38
[2023-06-14 07:41] LABS: % Basophils 0.3 % (0-2); % Eosinophils 0.2 % (0-6); % Immature Granulocytes 0.2 % (0-0.5); % Lymphocytes 4.8 % (20.5-51.1); % Monocytes 12.2 % (1.7-9.3); % Neutrophils 82.3 % (42.2-75.2); Absolute Lymphocytes 0.3 10^3/uL (1.2-3.4); Absolute Monocytes 0.7 10^3/uL (0.1-0.6); Hematocrit 31.4 % (39.0-52.0); Hemoglobin 10.4 g/dL (13.0-18.0); Mean Corp Hgb Conc. 33.1 g/dL (33.0-37.0); Mean Corpuscular Hgb 32.3 pg (27.0-31.0); Mean Corpuscular Volume 97.5 fL (80.0-94.0); Mean Platelet Volume 10.3 fL (7.4-10.4); Nucleated Red Blood Cells % 0.3 % (-); Platelet Count 138 10^3/uL (130-400); Red Blood Cell Count 3.22 10^6/uL (4.70-6.10); Red Cell Dist. Width 15.6 % (11.5-14.5); White Blood Cell Count 6.1 10^3/uL (4.8-10.8)
[2023-06-14 07:56] LABS: Blood Urea Nitrogen 52 mg/dl (9-20); Calcium 8.8 mg/dl (8.4-10.2); Carbon Dioxide 22 mmol/L (22-30); Chloride 107 mmol/L (98-107); Estimated Creatinine Clearance 35 ml/min; Glucose 104 mg/dl (70-99); Potassium 4.4 mmol/L (3.5-5.1); Sodium 136 mmol/L (135-145); eGFR 34.59
[2023-06-14 08:31] LABS: NT-proBNP 13800 pg/ml; Troponin I 0.155 ng/ml
--- NOTE | 2023-06-14 10:40 | HPS.HSE ---
Family Physician
-
Family Physician: Bang Lambert
Chief Complaint
-
sob
History of Present Illness
Patient 71 years old with history of CAD, CHF, hypertension, multiple myeloma, Parkinson's disease, CKD, amyloidosis, presented to the hospital with shortness of breath. Patient reports shortness of breath over the last several days has been
progressively getting worse he also has some associated chest tightness but denies clear-cut chest pain. He also denies any lower extremity edema. He has been on diuretics at home but diuretics were stopped due to renal function abnormality and he
was supposed to restart diuretics today. He he does admit that he has been drinking fluid more than usual and he is not sure about salt intake. Denies fevers or chills. In the ED, troponin 0.155 and BNP 13,800 and chest x-ray with worsening
aeration with increased bilateral pleural effusions and bilateral atelectasis and interstitial edema. He was referred to hospitalist for evaluation.
Medical History
Past Medical History
Past Medical History: Reports Other (Hypertension, CHF, CAD, hyperlipidemia, multiple myeloma, CKD amyloid protein positive bone marrow biopsy, arrhythmias.)
Past Surgical History: Reports Other (Cardiac stent and some orthopedic surgery.)
Social History
Tobacco: Former Smoker
Alcohol: Occasional
Drug: None
Family History
Family History: Not pertinent
Allergies / Home Medications
Allergies reflects when Allergies were last updated in [employer].
Home Medications with original date entered in [employer]
Allergy/Medication List:
Allergies
Allergy/AdvReac Type Severity Reaction Status Date / Time
atorvastatin Allergy MUSCLE Verified 06/14/23 06:37
CRAMPS
Cephalosporins Allergy Unknown Verified 06/14/23 06:37
coconut Allergy Unknown Verified 06/14/23 06:37
penicillin V Allergy Vomiting Verified 06/14/23 06:37
Penicillins Allergy Unknown Verified 06/14/23 06:37
pregabalin [From Lyrica] Allergy Tongue Verified 06/14/23 06:37
Swelling
simvastatin Allergy Unknown Verified 06/14/23 06:37
Kjsijqc-ABX-HoJ Reductase Allergy MUSCLE Verified 06/14/23 06:37
Inhibitor CRAMPS
[Smrpqfe-Cnt-Ygo Reductase
Inhibitor]
Sulfa (Sulfonamide Allergy Unknown Verified 06/14/23 06:37
Antibiotics)
Home Medications
lamotrigine 100 mg tablet 100 mg PO BID Neurological Condition 07/24/19
ezetimibe 10 mg tablet 10 mg PO HS High cholesterol 08/26/19
rosuvastatin 10 mg tablet 10 mg PO DAILY High cholesterol 08/26/19
aspirin 81 mg tablet,delayed release 81 mg PO DAILY Blood clot prevention/tx 08/27/19
allopurinol 100 mg tablet 100 mg PO DAILY Gout 06/15/20
gabapentin 100 mg capsule (Neurontin) 100 mg PO TID Pain 09/26/21
isosorbide mononitrate 30 mg tablet,extended release 24 hr 30 mg PO BID HEART CONDITION 09/26/21
montelukast 10 mg tablet (Singulair) 10 mg PO UD bone pain prevention 09/26/21
acyclovir 400 mg tablet 400 mg PO BID Infection 01/03/23
dexamethasone 4 mg tablet 4 mg PO UD Anti-Inflammatory 01/03/23
apixaban 5 mg tablet (Eliquis) 5 mg PO BID Blood Clot Prevention/Tx 04/20/23
daratumumab 20 mg/mL intravenous solution (Darzalex) 0 mg IV QMONTH Cancer 04/20/23
risperidone 0.5 mg tablet 0.25 mg PO HS Neurological Condition 04/20/23
venetoclax 100 mg tablet (Venclexta) 200 mg PO DAILY Cancer 04/20/23
carvedilol 3.125 mg tablet (Coreg) 3.125 mg PO DAILY Blood Pressure 06/01/23
furosemide 80 mg tablet (Lasix) 80 mg PO DAILY Fluid Retention/Swelling 06/14/23
hydralazine 25 mg tablet 50 mg PO BID Blood Pressure 06/14/23
potassium chloride 20 mEq tablet,extended release 20 meq PO DAILY Electrolyte Repletion 06/14/23
Review of Systems
-
A 12 point ROS was completed and negative except as noted: Yes
Physical Exam
Vital Signs
Vital Signs
Temp Pulse Resp BP Pulse Ox
100.2 F 73 25 134/62 95
06/14/23 06:38 06/14/23 08:15 06/14/23 08:15 06/14/23 07:04 06/14/23 08:15
Physical exam:
General: Acutely ill
HEENT: Normocephalic, Atraumatic and Moist Mucous Membranes
Respiratory: Bilateral crackles; Negative Wheezes or Rhonchi
Cardiac: Irregular rate and rhythm and S1/S2
GI: Soft, Nontender and Nondistended
Musculoskeletal: No Clubbing, No Cyanosis and No Edema
Neuro: Awake, Alert and Oriented
Psych: Calm
Physical Exam
General: Other
Laboratory Results
-
06/14/23 06:59
06/14/23 06:59
Laboratory Results
Troponin I 0.155 ng/ml H* 06/14/23 06:59
Impression/Plan
-
IMPRESSION:
Patient 72 years old male with multiple comorbidities who presents to the hospital shortness of breath and found to be in acute on chronic systolic congestive heart failure. Patient has underlying chronic kidney disease. Patient has an elevated
troponin. He is at increased risk of morbidity mortality due to his acute presentation and multiple medical problems therefore he will need to be treated in the hospital and monitor closely.
Impression:
Acute on chronic systolic congestive heart failure
Elevated troponin- elevated troponin due to non-ischemic myocardial injury due to heart failure
Chronic kidney disease stage III-IV
Paroxysmal atrial fibrillation
Conditions prior to presentation:
Multiple myeloma/amyloidosis
Coronary artery disease
Hypertension
Gout
Hyperlipidemia
PLAN:
IV diuretics, IV Lasix 40 mg twice daily
Monitor strict I/O
Monitor daily weight
Monitor renal function and electrolytes
His renal function will need to be monitored closely while on diuretics
Reviewed latest echocardiogram on our system
Continue guideline-directed medical therapy for heart failure (GDMT)
Fluid restriction
Salt restriction
Heart failure education
Follow up clinical response
Cardiology consult today ([place] texted cardiology today)
DVT prophylaxis with Eliquis
CODE STATUS full code
Will give further recommendations based on his clinical course
Total time spent on today's encounter was 75 minutes which included time spent in counseling the patient/family regarding diagnosis and treatment plan as listed above, goals of care, and symptom management. Case was discussed with nursing staff,
specialists. All labs and imaging personally reviewed by me. Remainder the time spent in detailed review of previous records, lab data, imaging, and other medical provider documentation.
--- NOTE | 2023-06-14 10:54 | CON.CAR ---
Addendum entered and electronically signed by Juan Antonio Almonte MD 06/14/23 12:24:
72 yo male with PMH of chronic HFmEF (EF 45-50%), CKD3b, likely persistent A fib on eliquis admitted with SOB and weight gain. He developed OLIVIA when on lasix 80mg bid at home. This was held by nephrology. Then resumed at 80mg once daily today,
but then he felt more SOB, so he presented to the ED. Exam with irregular rhythm, no murmurs, trivial edema. Cr 2.0. EKG: A fib.
#Acute on chronic HFmEF
-lasix 80mg IV bid
-once euvolemic, will try to maintain on lasix 80mg PO once daily based on history above
Original Note:
Consultation
Consultation Request
Date/Time Consultation Requested: 06/14/23 1023
Date/Time Consultation Performed: 06/14/23 1045
Requesting Provider: Dr. Ford
Performing Provider: Lupis VINES for Dr. Almonte
Reason for Consultation: CHF, abnormal troponin
Medical History
-
Chief Complaint: SOB, chest tightness
History of Present Illness:
72 y/o male with parkinson's disease, CAD with stenting, HFpEF, hypertension, multiple myeloma, CKD3B, Mobitz 1, amyloid protein positive BM biopsy, and multiple myeloma who is here for evaluation of SOB and mild chest tightness with exertion for
the past few days. He reports this felt like in the past when he needed a thoracentesis. He was recently here for CHF in early April and lsent home on lasix 80 mg PO BID, then came back in mid May with OLIVIA. Diuretics were stopped. Lasix 80 mg
once daily resumed today with the guidance of his orthopaedic doctor. He is being admitted for management of CHF exacerbation and is ordered IV lasix in ER. His primary anesthesia resident is Dr. De León, also follows at [facility] with Dr. Peguero.
Past Medical History
Past Medical History: Arrhythmias, CAD, Cancer, CHF, HTN, Hypercholesterolemia and Renal Failure
Social History
Tobacco: Former Smoker
Family History
Family History: Reviewed & Not Pertinent
Allergies / Home Medications
Allergy/AdvReac Type Severity Reaction Status Date / Time
atorvastatin Allergy MUSCLE Verified 06/14/23 06:37
CRAMPS
Cephalosporins Allergy Unknown Verified 06/14/23 06:37
coconut Allergy Unknown Verified 06/14/23 06:37
penicillin V Allergy Vomiting Verified 06/14/23 06:37
Penicillins Allergy Unknown Verified 06/14/23 06:37
pregabalin [From Lyrica] Allergy Tongue Verified 06/14/23 06:37
Swelling
simvastatin Allergy Unknown Verified 06/14/23 06:37
Gmsvogb-DLM-RzY Reductase Allergy MUSCLE Verified 06/14/23 06:37
Inhibitor CRAMPS
[Tyvpufs-Aib-Sji Reductase
Inhibitor]
Sulfa (Sulfonamide Allergy Unknown Verified 06/14/23 06:37
Antibiotics)
�Medication �Instructions �Recorded �Confirmed �Type
lamotrigine 100 mg tablet 100 mg PO BID Neurological 07/24/19 06/14/23 History
Condition
ezetimibe 10 mg tablet 10 mg PO HS High cholesterol 08/26/19 06/14/23 History
rosuvastatin 10 mg tablet 10 mg PO DAILY High cholesterol 08/26/19 06/14/23 History
aspirin 81 mg tablet,delayed 81 mg PO DAILY Blood clot 08/27/19 06/14/23 History
release prevention/tx
allopurinol 100 mg tablet 100 mg PO DAILY Gout 06/15/20 06/14/23 History
gabapentin 100 mg capsule 100 mg PO TID Pain 09/26/21 06/14/23 History
(Neurontin)
isosorbide mononitrate 30 mg 30 mg PO BID HEART CONDITION 09/26/21 06/14/23 History
tablet,extended release 24 hr
montelukast 10 mg tablet 10 mg PO UD bone pain prevention 09/26/21 06/14/23 History
(Singulair)
acyclovir 400 mg tablet 400 mg PO BID Infection 01/03/23 06/14/23 History
dexamethasone 4 mg tablet 4 mg PO UD Anti-Inflammatory 01/03/23 06/14/23 History
apixaban 5 mg tablet (Eliquis) 5 mg PO BID Blood Clot 04/20/23 06/14/23 History
Prevention/Tx
daratumumab 20 mg/mL intravenous 0 mg IV QMONTH Cancer 04/20/23 06/14/23 History
solution (Darzalex)
risperidone 0.5 mg tablet 0.25 mg PO HS Neurological 04/20/23 06/14/23 History
Condition
venetoclax 100 mg tablet 200 mg PO DAILY Cancer 04/20/23 06/14/23 History
(Venclexta)
carvedilol 3.125 mg tablet (Coreg) 3.125 mg PO DAILY Blood Pressure 06/01/23 06/14/23 History
furosemide 80 mg tablet (Lasix) 80 mg PO DAILY Fluid 06/14/23 06/14/23 History
Retention/Swelling
hydralazine 25 mg tablet 50 mg PO BID Blood Pressure 06/14/23 06/14/23 History
potassium chloride 20 mEq 20 meq PO DAILY Electrolyte 06/14/23 06/14/23 History
tablet,extended release Repletion
Review of Systems
-
History Source: Patient
All other systems: Negative unless noted
Constitutional: Weight Gain
Respiratory: Trouble Breathing
Cardiac: Chest Pain
Physical Exam
Vital Signs
Temp Pulse Resp BP Pulse Ox
100.2 F 73 25 134/62 95
06/14/23 06:38 06/14/23 08:15 06/14/23 08:15 06/14/23 07:04 06/14/23 08:15
Lab Results
06/14/23 06:59
06/14/23 06:59
Troponin I 0.155 ng/ml H* 06/14/23 06:59
Xqx-Q-Dzffccsrhqb Pept 15823 pg/ml 06/14/23 06:59
Physical Exam
General: Well Developed, Well Nourished and No Apparent Distress
HEENT: Normocephalic and Anicteric
Respiratory: Crackles (b/l bases)
Cardiac: Irregular Rhythm
Musculoskeletal: No Edema
Skin: Warm and Dry
Neuro: AO x 3
Psych: Calm
Impression / Plan
-
Vrofx-si-xduvcwc HFmEF:
-EF 46% on recent echo as below- on hydralazine/Imdur. GDMT limited by renal function and HR (low dose coreg)
-weight is up 8 kgs from 10 days ago based on ER weight. Notably, he has been off lasix as OP due to OLIVIA.
-agree with IV diuresis, which requires intensive monitoring
Abnormal troponin:
-suspect non-ischemic myocardial injury in setting of CHF exacerbation
-similar to previous values
PAF:
-rate-controlled
-continue Coreg and Eliquis
CAD with hx stenting:
-stable
-denies any of his anginal quality CP
-continue ASA, statin, BB, Imdur
CKD:
-monitor with diuresis
2nd degree AV block, Mobitz I -stable
MM, follows with Dr. Crocker
Data Reviewed
-
EKG: Tracing Personally Visualized and interpreted (AFIB with ST/T abnormality and no significant change when compared with previous)
Radiology: Report Reviewed by me (CXR: Worsening aeration with increasing bilateral pleural effusions and bibasilar atelectasis with decreased lung volumes and mild interstitial edema.)
Medical Tests (Nuc Med, Echo etc): Report Reviewed by me (echo 04/23/23: Moderate concentric left ventricular hypertrophy. Mildly reduced left ventricular systolic function. Left ventricular ejection fraction is 46%, by Zavala' s method. GLS
Endo peak avg.= -6.4 %. Normal right ventricular size and function. Right ventricular hypertrophy.)
Labs: Labs Reviewed by me
[2023-06-14] MEDS: LASIX 40 MG IV (11:20)
--- NOTE | 2023-06-14 16:30 | PTCARENOTE ---
Rec'd Pt from ED to Room 436-2, [address]. Pt is AAOx3. Ambulated unassisted from stretcher to bed. Oriented to room with call angelo in place. Pt did not bring non-formulary home med Venclexta, nor anyone to bring it to him. Pat in pharmacy notified.
[2023-06-14] MEDS: NEURONTIN 100 MG PO ×2 (16:36→21:25)
[2023-06-14] MEDS: LASIX 80 MG IV (16:37)
[2023-06-14] MEDS: ZOVIRAX 400 MG PO (21:24)
[2023-06-14] MEDS: ELIQUIS 5 MG PO (21:24)
[2023-06-14] MEDS: RISPERDAL 0.25 MG PO (21:24)
[2023-06-14] MEDS: APRESOLINE 50 MG PO (21:25)
[2023-06-14] MEDS: LAMICTAL 100 MG PO (21:25)
[2023-06-14] MEDS: ZETIA 10 MG PO (21:25)
[2023-06-14] MEDS: IMDUR (EXTENDED RELEASE) 30 MG PO (21:25)
[2023-06-14 22:28] LABS: Troponin I 0.163 ng/ml
[2023-06-15] VITALS (8 sets, daily range): BP systolic 108–138; BP diastolic 53–79; PULSE 75; O2SAT 96; BMI 22.5
[2023-06-15 06:13] LABS: Hematocrit 32.7 % (39.0-52.0); Hemoglobin 11.1 g/dL (13.0-18.0); Mean Corp Hgb Conc. 33.9 g/dL (33.0-37.0); Mean Corpuscular Hgb 32.3 pg (27.0-31.0); Mean Corpuscular Volume 95.1 fL (80.0-94.0); Mean Platelet Volume 10.3 fL (7.4-10.4); Platelet Count 154 10^3/uL (130-400); Red Blood Cell Count 3.44 10^6/uL (4.70-6.10); Red Cell Dist. Width 15.6 % (11.5-14.5); White Blood Cell Count 6.4 10^3/uL (4.8-10.8)
[2023-06-15 06:42] LABS: Blood Urea Nitrogen 50 mg/dl (9-20); Calcium 8.9 mg/dl (8.4-10.2); Carbon Dioxide 25 mmol/L (22-30); Chloride 102 mmol/L (98-107); Estimated Creatinine Clearance 35 ml/min; Glucose 85 mg/dl (70-99); Potassium 3.7 mmol/L (3.5-5.1); Sodium 135 mmol/L (135-145); eGFR 34.59
--- NOTE | 2023-06-15 09:10 | W.PN.HOSP.TC ---
Today's Communication/Plan
-
IV Lasix.
Assessment / Plan
Assessment / Plan
Physical exam:
General: Acutely ill
HEENT: Normocephalic, Atraumatic and Moist Mucous Membranes
Respiratory: Bilateral crackles; Negative Wheezes or Rhonchi
Cardiac: Irregular rate and rhythm and S1/S2
GI: Soft, Nontender and Nondistended
Musculoskeletal: No Clubbing, No Cyanosis and No Edema
Neuro: Awake, Alert and Oriented
Psych: Calm
A/P:
Impression:
Acute on chronic systolic congestive heart failure
Elevated troponin- elevated troponin due to non-ischemic myocardial injury due to heart failure
Chronic kidney disease stage III-IV
Paroxysmal atrial fibrillation
Conditions prior to presentation:
Multiple myeloma/amyloidosis
Coronary artery disease
Hypertension
Gout
Hyperlipidemia
PLAN:
IV diuretics, IV Lasix 80 mg twice daily
Monitor strict I/O
Monitor daily weight
Monitor renal function and electrolytes
His renal function will need to be monitored closely while on diuretics
Reviewed latest echocardiogram on our system
Continue guideline-directed medical therapy for heart failure (GDMT)
Fluid restriction
Salt restriction
Heart failure education
Follow up clinical response
Cardiology consulted--> appreciate cardiology input. Discussed with cardiology today on 06/14 and will continue with intravenous diuresis and possible discharge over the next 24-48 hrs.
DVT prophylaxis with Eliquis
CODE STATUS full code
Anticipated Discharge: 24 - 48 hours
Subjective/Interval History
-
Date of Service: June 15, 2023
Patient feels better overall, less shortness of breath. No chest pain. Afebrile
Objective Data
-
Labs:
Laboratory Results
06/15/23
05:40
WBC 6.4
Hgb 11.1 L
Hct 32.7 L
Plt Count 154
Sodium 135
Potassium 3.7
Chloride 102
Carbon Dioxide 25
BUN 50 H
Creatinine 2.0 H
Glucose 85
Calcium 8.9
Vital Signs:
Vital Signs
Temp Pulse Resp BP Pulse Ox
98.3 F 74 18 138/79 97
06/15/23 07:00 06/15/23 07:00 06/15/23 07:00 06/15/23 07:00 06/15/23 07:00
I&O
06/14/23 06/15/23 06/16/23
06:59 06:59 06:59
Intake Total 240 / 240
Output Total 1600 / 1600 1200 / 1200
Balance -1600 / -1600 -960 / -960
Review of Systems
-
All other systems: Reviewed and negative
[2023-06-15] MEDS: NEURONTIN 100 MG PO ×3 (09:28→21:42)
[2023-06-15] MEDS: ELIQUIS 5 MG PO ×2 (09:28→21:42)
[2023-06-15] MEDS: IMDUR (EXTENDED RELEASE) 30 MG PO ×2 (09:28→21:41)
[2023-06-15] MEDS: ASPIR LOW (ENTERIC COATED) 81 MG PO (09:28)
[2023-06-15] MEDS: CRESTOR 10 MG PO (09:28)
[2023-06-15] MEDS: APRESOLINE 50 MG PO ×2 (09:28→21:41)
[2023-06-15] MEDS: COREG 3.125 MG PO (09:29)
[2023-06-15] MEDS: LASIX 80 MG IV ×2 (09:29→16:37)
[2023-06-15] MEDS: KCL 20 MEQ PO (09:29)
[2023-06-15] MEDS: LAMICTAL 100 MG PO ×2 (09:29→21:41)
[2023-06-15] MEDS: ZOVIRAX 400 MG PO ×2 (09:33→21:42)
[2023-06-15] MEDS: ZYLOPRIM 100 MG PO (09:33)
--- NOTE | 2023-06-15 10:03 | W.PN.CD ---
Today's Communication / Plan
-
- IV Lasix today and tomorrow morning
- Ok for homo tomorrow on Lasix 80 mg qAM everyday and 80 mg pPM on just MoWeFr
- I reemphasized the importance of daily weights and taking (or holding) an extra day/dose of PM Lasix based on weight change (3lbs in 24 hrs and 5 lbs in 5d)
Impression / Plan
-
Npdqf-mr-ggtofpc HFmEF:
-EF 46% on recent echo as below- on hydralazine/Imdur. GDMT limited by renal function and HR (low dose coreg)
-NOTE the ER weight may have overestimated his weight gain. The weight on the floor yesterday was only 78.9 kg. Notably, he has been off lasix as OP due to OLIVIA.
-Anticipate IV Lasix at least today and tomorrow moring
-Anticipate home dose of Lasix 80 mg qAM everyday and 80 mg pPM on just MoWeFr
-I reemphasized the importance of daily weights and taking (or holding) an extra day/dose of PM Lasix based on weight change (3lbs in 24 hrs and 5 lbs in 5d)
Abnormal troponin:
-suspect non-ischemic myocardial injury in setting of CHF exacerbation
-similar to previous values
Afib:
-rate-controlled
-continue Coreg and Eliquis
CAD with hx stenting:
-stable
-denies any of his anginal quality CP
-continue ASA, statin, BB, Imdur
CKD:
-monitor with diuresis
Hx of 2nd degree AV block, Mobitz I , in afib now
Multiple myeloma, on active treatment, follows with Dr. Crocker
Physical Exam
Vital Signs/Labs
Vital Signs
Temp Pulse Resp BP Pulse Ox
98.3 F 74 18 138/79 97
06/15/23 07:00 06/15/23 07:00 06/15/23 07:00 06/15/23 07:00 06/15/23 07:00
06/14/23 06/15/23 06/16/23
06:59 06:59 06:59
Actual Weight 83.7 kg 73.301 kg
06/15/23 05:40
06/15/23 05:40
06/14/23
06:59
Gda-J-Uqliwudvrpf Pept [id number]
LAB Results
06/14/23 06/14/23 06/14/23
06:59 16:23 21:55
Troponin I 0.155 H* 0.170 H* 0.163 H*
Physical Exam
Constitutional: No acute distress
EENT: Anicteric
Cardiovascular: Rhythm & rate is regular and Pedal edema is absent
Respiratory: Respiratory effort normal and Lungs clear to auscul.
GI: Soft and Distention absent
Neuro/Psych: AO x 3
Data Reviewed
-
Date of Service: June 15, 2023
--- NOTE | 2023-06-15 10:27 | CM ---
Patient seen bedside.
IA completed.
Patient lives alone in a 1 story efficiency.
Independent prior to admission.
Patient drives.
Pharmacy and PCP verified.
Discussed VN options with patients, he declined.
Plan: home no needs.
[2023-06-15] MEDS: ZETIA 10 MG PO (21:42)
[2023-06-15] MEDS: RISPERDAL 0.25 MG PO (21:42)
[2023-06-16 03:15] VITALS: BP 103/64
[2023-06-16 06:00] VITALS: BMI 23.0
[2023-06-16 06:24] LABS: Blood Urea Nitrogen 59 mg/dl (9-20); Calcium 9.2 mg/dl (8.4-10.2); Carbon Dioxide 30 mmol/L (22-30); Chloride 98 mmol/L (98-107); Estimated Creatinine Clearance 32 ml/min; Glucose 92 mg/dl (70-99); Potassium 3.6 mmol/L (3.5-5.1); Sodium 136 mmol/L (135-145); eGFR 32.62
[2023-06-16 07:00] VITALS: BP 132/72
[2023-06-16] MEDS: LASIX 80 MG IV (08:15)
[2023-06-16] MEDS: COREG 3.125 MG PO (08:15)
[2023-06-16] MEDS: APRESOLINE 50 MG PO (08:15)
[2023-06-16] MEDS: ZOVIRAX 400 MG PO (08:15)
[2023-06-16] MEDS: ASPIR LOW (ENTERIC COATED) 81 MG PO (08:15)
[2023-06-16] MEDS: KCL 20 MEQ PO (08:15)
[2023-06-16] MEDS: NEURONTIN 100 MG PO (08:15)
[2023-06-16] MEDS: LAMICTAL 100 MG PO (08:15)
[2023-06-16] MEDS: CRESTOR 10 MG PO (08:15)
[2023-06-16] MEDS: ELIQUIS 5 MG PO (08:15)
[2023-06-16] MEDS: ZYLOPRIM 100 MG PO (08:15)
[2023-06-16] MEDS: IMDUR (EXTENDED RELEASE) 30 MG PO (08:15)
--- NOTE | 2023-06-16 08:20 | W.PN.HOSP.TC ---
Today's Communication/Plan
-
Discharge planning today.
Assessment / Plan
Assessment / Plan
Physical exam:
General: Acutely ill
HEENT: Normocephalic, Atraumatic and Moist Mucous Membranes
Respiratory: Bilateral crackles; Negative Wheezes or Rhonchi
Cardiac: Irregular rate and rhythm and S1/S2
GI: Soft, Nontender and Nondistended
Musculoskeletal: No Clubbing, No Cyanosis and No Edema
Neuro: Awake, Alert and Oriented
Psych: Calm
A/P:
Impression:
Acute on chronic systolic congestive heart failure
Elevated troponin- elevated troponin due to non-ischemic myocardial injury due to heart failure
Chronic kidney disease stage III-IV
Paroxysmal atrial fibrillation
Conditions prior to presentation:
Multiple myeloma/amyloidosis
Coronary artery disease
Hypertension
Gout
Hyperlipidemia
PLAN:
IV diuretics, IV Lasix 80 mg twice daily--> changed to oral from today on after IV doses this morning.
Monitor strict I/O
Monitor daily weight
Monitor renal function and electrolytes
His renal function will need to be monitored closely while on diuretics
Reviewed latest echocardiogram on our system
Continue guideline-directed medical therapy for heart failure (GDMT)
Fluid restriction
Salt restriction
Heart failure education
Follow up clinical response
Cardiology consulted--> appreciate cardiology input. Discussed with cardiology today on 06/15 and plan to discharge home today.
DVT prophylaxis with Eliquis
CODE STATUS full code
Anticipated Discharge: Today
Subjective/Interval History
-
Date of Service: June 16, 2023
Patient doing well overall. No chest pain or shortness of breath.
Objective Data
-
Labs:
Laboratory Results
06/16/23
05:32
Sodium 136
Potassium 3.6
Chloride 98
Carbon Dioxide 30
BUN 59 H
Creatinine 2.1 H
Glucose 92
Calcium 9.2
Vital Signs:
Vital Signs
Temp Pulse Resp BP Pulse Ox
98.4 F 79 18 132/72 98
06/16/23 03:15 06/16/23 03:15 06/16/23 03:15 06/16/23 08:15 06/16/23 03:15
I&O
06/15/23 06/16/23 06/17/23
06:59 06:59 06:59
Intake Total 960 / 960
Output Total 1600 / 1600 3250 / 3250
Balance -1600 / -1600 -2290 / -2290
[2023-06-16 11:00] VITALS: BP 117/68
--- NOTE | 2023-06-16 13:16 | W.PN.CD ---
Today's Communication / Plan
-
OK for home
Plan:
- Lasix 80 mg qAM everyday
- And Lasix 80 mg qPM MoWeFr
- Daily weights with plans for taking (or holding) an extra day/dose of Lasix
- based on weight change (3lbs in 24 hrs and 5 lbs in 5d)
- F/u arranged in our office
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
Cardiology will sign off. Please call with questions
Impression / Plan
-
Xbibv-kd-jfjsvvb HFmEF:
-EF 46% on recent echo as below- on hydralazine/Imdur. GDMT limited by renal function and HR (low dose coreg)
-NOTE the ER weight may have overestimated his weight gain. The weight on the floor yesterday was only 78.9 kg. Notably, he has been off lasix as OP due to OLIVIA.
-Anticipate IV Lasix at least today and tomorrow moring
-Anticipate home dose of Lasix 80 mg qAM everyday and 80 mg pPM on just MoWeFr
-I reemphasized the importance of daily weights and taking (or holding) an extra day/dose of PM Lasix based on weight change (3lbs in 24 hrs and 5 lbs in 5d)
Abnormal troponin:
-suspect non-ischemic myocardial injury in setting of CHF exacerbation
-similar to previous values
Afib
- Still in Afib, was in sinus in Dec 2022
-rate-controlled
-continue Coreg and Eliquis
CAD with hx stenting:
-stable
-denies any of his anginal quality CP
-continue ASA, statin, BB, Imdur
CKD:
-monitor with diuresis
Hx of 2nd degree AV block, Mobitz I , in afib now
Multiple myeloma, on active treatment, follows with Dr. Crocker
Physical Exam
Vital Signs/Labs
Vital Signs
Temp Pulse Resp BP Pulse Ox
98.0 F 77 20 117/68 97
06/16/23 11:00 06/16/23 11:00 06/16/23 11:00 06/16/23 11:00 06/16/23 11:00
06/15/23 06/16/23 06/17/23
06:59 06:59 06:59
Actual Weight 73.301 kg 74.644 kg
06/15/23 05:40
06/16/23 05:32
06/14/23
06:59
Fay-Y-Acbiedgrjlp Pept [id number]
LAB Results
06/14/23 06/14/23 06/14/23
06:59 16:23 21:55
Troponin I 0.155 H* 0.170 H* 0.163 H*
Physical Exam
Constitutional: No acute distress
Cardiovascular: Pedal edema is absent and Rhythm/rate is irregular
Respiratory: Respiratory effort normal and Lungs clear to auscul.
GI: Soft and Distention absent
Neuro/Psych: Alert
Data Reviewed
-
Date of Service: June 16, 2023
--- NOTE | 2023-06-16 14:54 | W.DCSUMMARY ---
Discharge Summary
Discharge Data
Date of Admission: 06/14/23
Date of Discharge: 06/16/23
-
Pending Results: No
Hospital Course
Patient is 72 years old with history of CAD, Parkinson's, hypertension, multiple myeloma, CKD, amyloid protein, came into the hospital worsening shortness of breath and found to be in exacerbation of congestive heart failure. Patient started on IV
diuresis. Cardiology consulted. His renal function electrolytes were monitored very closely. Patient had negative balance throughout this hospital stay and feels symptomatically back to his baseline. Cardiology cleared him for discharge and
recommended adjustment of his oral diuretics at home as listed on the discharge list. Further atrial fibrillation management will be addressed as outpatient but currently rate controlled. Creatinine upon discharge 2.1 which is close to his
baseline and he will have follow-up BMP as outpatient. Otherwise, patient is hemodynamically stable. He is currently discharged in stable condition today.
Discharge duration: 34 minutes
Discharge Plan
-
Patient Disposition: Home (Routine Discharge)
Discharge Diagnosis/Procedures: Acute on chronic systolic congestive heart failure. Elevated troponin due to non-ischemic myocardial injury due to heart failure. Chronic kidney disease stage III-IV. Paroxysmal atrial fibrillation. Multiple
myeloma/amyloidosis. History of coronary artery disease.
Diet: Low Cholesterol, 2 Gram Sodium and Restrict fluids to 48 oz
Activity: As tolerated
Driving Restrictions: As prior to admission
Blood Work: Please PCP to order CBC, BMP, magnesium within 1 week
Specialty Instructions: Weigh Daily- Call MD for wt gain/loss 3 lbs overnight/5 lbs in 1 week
Instructions: *CBC Heart Failure Instructions
Referrals:
Malia Dubois NP [Specified Professional Personl] - 06/21/23 10:20 am
Bang Lambert III, DO [Family Provider] - in less than 1 week
Prescriptions:
Continued
lamotrigine 100 MG tablet
100 mg PO BID
ezetimibe 10 MG tablet
10 mg PO HS
rosuvastatin 10 MG tablet
10 mg PO DAILY
aspirin 81 MG tablet,delayed release (DR/EC)
81 mg PO DAILY
allopurinol 100 MG tablet
100 mg PO DAILY
isosorbide mononitrate 30 mg Tablet Extended Release 24 Hr
30 mg PO BID
montelukast [Singulair] 10 mg Tablet
10 mg PO UD
Rx Instructions:
take the night before, night of, and night after Darzalex infusion.
gabapentin [Neurontin] 100 mg Capsule
100 mg PO TID
acyclovir 400 mg Tablet
400 mg PO BID
dexamethasone 4 mg Tablet
4 mg PO UD
Rx Instructions:
take the day after Darzalex infusion and for 2 days after.
Darzalex 20 mg/mL Solution
0 mg IV QMONTH
risperidone 0.5 mg Tablet
0.25 mg PO HS
Venclexta 100 mg Tablet
200 mg PO DAILY
Eliquis 5 mg tablet
5 mg PO BID
carvedilol [Coreg] 3.125 mg tablet
3.125 mg PO DAILY
potassium chloride 20 mEq Tablet Extended Release
20 meq PO DAILY
hydralazine 25 mg tablet
50 mg PO BID
furosemide [Lasix] 80 mg Tablet
80 mg PO DAILY 30 Days Qty: 30 0RF
Rx Instructions:
Patient to take Lasix 80 mg daily but Lasix 80 mg twice a day on Sunday.
Discharge Orders:
Discharge Patient (As Directed); Ordered 06/16/23
Ordered By: Babatunde Ford
Discharge Date and Time
Discharge Date/Time: 06/16/23 16:10
Print Language: UKRAINIAN
--- NOTE | 2023-06-16 15:48 | CM ---
Chart reviewed and plan is to home no needs.
Plan; Home no needs.
--- NOTE | 2023-06-18 10:38 | W.HF.CON ---
Heart Failure
- LV Function
Left ventricular function study result: LV Ejection fraction >40% (ECHO 04/23/23)
Ejection Fraction Percentage: 46
- ARNI
Patient already on ARNI: No
Heart Failure ARNI Not Indicated: LV Ejection Fraction >/= 40%
- ACEI/ARB
Patient already on ACEI/ARB: No
Heart Failure ACEI/ARB Not Indicated: LV Ejection Fraction > 40%
- Beta Ha
Patient already on Evidence Based Beta Ha: Yes
- Mineralocorticord Receptor Antagonist
Patient already on MRA: No
Heart Failure MRA Not Indicated: LV Ejection Fraction > 40%
- SGLT-2 Inhibitor
Patient already on SGLT-2 Inhibitor: No
Heart Failure SGLT-2 Inhibitor Not Indicated: LV Ejection Fraction >40%
- Afib Anticoagulation
Patient already on Anticoagulation for Afib: Yes
- NYHA CHF Classification
NYHA CHF Classification Level: Class III - Symptoms w/ min exertion, interferes w/ nml daily activity
- ACC/AHA Stage
ACC/AHA Stage: Stage C: Symptomatic Heart Failure
== END 2023-06-16 16:10 | disposition home or self-care (01) | DRG 291 ==
LOC: 4 WEST ACU 10:47
PROVIDERS: Nurse Practitioner; ADMITTING PHYSICIAN Hospitalist; CONSULT PHYSICIAN Internal Medicine; EMERGENCY PHYSICIAN Emergency Medicine; FAMILY PHYSICIAN Internal Medicine
DX: I13.0 Hypertensive heart and chronic kidney disease with heart failure and stage 1 through stage 4 chronic kidney disease, or unspecified chronic kidney disease (principal); I50.43 Acute on chronic combined systolic (congestive) and diastolic (congestive) heart failure; C90.00 Multiple myeloma not having achieved remission; E85.9 Amyloidosis, unspecified; I5A Non-ischemic myocardial injury (non-traumatic); Z87.891 Personal history of nicotine dependence; I48.0 Paroxysmal atrial fibrillation; I25.10 Atherosclerotic heart disease of native coronary artery without angina pectoris; Z95.5 Presence of coronary angioplasty implant and graft; N18.32 Chronic kidney disease, stage 3b; M10.9 Gout, unspecified; E78.00 Pure hypercholesterolemia, unspecified
CPT/HCPCS: 71046; 80048; 83880; 84484; 85025; 85027; 93005; 97161; 97165; 99285

== ENCOUNTER → 2023-07-17 09:33 | Day surgery (SDC) | payer MEDICARE, SELFPAY ==
[2023-07-17 10:39] VITALS: BMI 27.5
--- NOTE | 2023-07-17 11:39 | ITS.CL.CARDI ---
[facility] - Cardioversion
Cardioversion
Procedure Report:
Date of Procedure: 07/17/23.
Procedure: Cardioversion.
Indication: Symptomatic atrial fibrillation.
Performing Physician: Bailey Melo MD
Technique: The patient was brought to the holding area. Signed informed consent was obtained. A time out was called and performed. Anticoagulation status was reviewed and was appropriate. R-2 pads were placed anteriorly and posteriorly.The patient
was sedated by a member of the anesthesia service. Given his history of amyloidosis, LETICIA was performed. No evidence of left atrial, left atrial appendage, right atrial right atrial appendage thrombus was seen. A 200 J synchronized biphasic shock
resulted in initial junctional rhythm and then sinus bradycardia with eventual sinus rhythm. There were no complications.
Conclusion: Uncomplicated cardioversion from atrial fibrillation to sinus rhythm.
Recommendation: Routine post cardioversion care. Continue fci anticoagulation. Amiodarone therapy was reduced to 200 mg p.o. daily.
cc:Dr. De León
== END ==
LOC: CATH 09:33
PROVIDERS: ATTENDING PHYSICIAN Internal Medicine Cardiovascular Disease; FAMILY PHYSICIAN Internal Medicine; OTHER PHYSICIAN Internal Medicine Cardiovascular Disease
DX: I08.1 Rheumatic disorders of both mitral and tricuspid valves (principal); I48.0 Paroxysmal atrial fibrillation; I13.0 Hypertensive heart and chronic kidney disease with heart failure and stage 1 through stage 4 chronic kidney disease, or unspecified chronic kidney disease; I50.32 Chronic diastolic (congestive) heart failure; N18.32 Chronic kidney disease, stage 3b; I25.10 Atherosclerotic heart disease of native coronary artery without angina pectoris; G20.A1 Parkinson's disease without dyskinesia, without mention of fluctuations; Z95.5 Presence of coronary angioplasty implant and graft; Z87.891 Personal history of nicotine dependence; Z85.79 Personal history of other malignant neoplasms of lymphoid, hematopoietic and related tissues; Z79.82 Long term (current) use of aspirin; Z79.01 Long term (current) use of anticoagulants
CPT/HCPCS: 93312; 93320; 93325; 92960; 93005

== ENCOUNTER → 2023-07-31 14:40 | Outpatient (REF) | payer MEDICARE, SELFPAY ==
[2023-07-31 14:58] LABS: % Basophils 0.7 % (0-2); % Immature Granulocytes 0.2 % (0-0.5); % Monocytes 13.9 % (1.7-9.3); % Neutrophils 74.2 % (42.2-75.2); Absolute Lymphocytes 0.5 10^3/uL (1.2-3.4); Absolute Monocytes 0.6 10^3/uL (0.1-0.6); Absolute Neutrophils 3.4 10^3/uL (1.4-6.5); Hematocrit 27.9 % (39.0-52.0); Hemoglobin 9.1 g/dL (13.0-18.0); Mean Corp Hgb Conc. 32.6 g/dL (33.0-37.0); Mean Corpuscular Hgb 31.9 pg (27.0-31.0); Mean Corpuscular Volume 97.9 fL (80.0-94.0); Mean Platelet Volume 10.3 fL (7.4-10.4); Platelet Count 162 10^3/uL (130-400); Red Blood Cell Count 2.85 10^6/uL (4.70-6.10); Red Cell Dist. Width 14.3 % (11.5-14.5); White Blood Cell Count 4.5 10^3/uL (4.8-10.8)
== END ==
LOC: OIDL 14:40
PROVIDERS: ATTENDING PHYSICIAN Nurse Practitioner Adult Health
DX: C90.00 Multiple myeloma not having achieved remission (principal); D50.9 Iron deficiency anemia, unspecified; E85.9 Amyloidosis, unspecified
CPT/HCPCS: 85025

== ENCOUNTER 2023-08-01 11:20 | Emergency (ER) | payer MEDICARE, SELFPAY ==
[2023-08-01 11:22] VITALS: BP 141/67
[2023-08-01 11:33] VITALS: BP 140/76
--- NOTE | 2023-08-01 11:37 | ED.GENMED ---
History of Present Illness
<Berenice Hedrcik CUSTOMER ACCOUNT TECHNICIAN - Last Filed: 08/01/23 18:37>
General
Chief Complaint: Breathing Problem
Source: patient
Exam Limitations: none
Time Seen by Provider: 08/01/23 11:34
Nursing documentation reviewed up to this point in time: agreed with
Travel History
Have you had any contact with someone who has COVID-19?: No
Do you have any symptoms of coronavirus? Fever > 100 degrees, chills, cough, shortness of breath, sore throat, loss of taste or smell, muscle aches, or headache?: No
History of Present Illness
History of Present Illness:
72 yo male with h/o afib on Eliquis, cardioversion 07/17/23, cardiac stents 2010, HTN, chronic CHF w PEF, CKD 3, mult myeloma, depression, presents stating 'I'm retaining fluid.' This a.m. he felt lightheaded walking from his truck into the pharmacy
and had to sit for a while fearing he would pass out. Past two weeks noted wt gain of 8 lbs with increasing LE and feet swelling.
His Commodities Clerk in [place] increased his Lasix from 80 mg BID to 100 mg BID 2 weeks ago and then up to 120 mg BID one week ago.
Past History
<Berenice Hedrick CUSTOMER ACCOUNT TECHNICIAN - Last Filed: 08/01/23 18:37>
Past History
ED Past Medical History: CAD, Cancer, CHF, HTN, Hypercholesterolemia, RI and Other (chronic renal disease)
ED Past Surgical History: Cardiac (Stents X 4) and Orthopedic
Social History
Tobacco: Former smoker
Alcohol: Occasional
Personal:
Living: alone
Employment: Not employed
Review of Systems
<Berenice Hedrick, CUSTOMER ACCOUNT TECHNICIAN - Last Filed: 08/01/23 18:37>
Review of Systems
Allergies reviewed?: Yes
All Other Systems: ROS reviewed and negative except as documented in HPI and ROS
Constitutional: Reports fatigue; Denies fever
Respiratory: Denies trouble breathing
Cardiac: Denies chest pain, palpitations or syncope
ABD/GI: Denies abdominal pain, nausea, vomiting or diarrhea
: Denies dysuria or difficulty voiding
Musculoskeletal: Reports edema (reports swelling both LEs)
Skin: Reports no symptoms
Neurological: Reports weakness (general) and other (episode lightheadedness); Denies headache
Phy Exam
<Berenice Hedrick, CUSTOMER ACCOUNT TECHNICIAN - Last Filed: 08/01/23 18:37>
Physical Exam
Physical Exam:
GENERAL: No acute distress. A&Ox3.
CONSTITUTIONAL: Afebrile.
EYES: PERRL, conjunctivae normal
ENMT: moist mucus membranes, Pharynx nl
RESPIRATORY: Regular respirations, nonlabored, lungs clear.
CARDIOVASCULAR: Regular rate and rhythm, no murmurs, no rubs.
GI: Soft, nontender, normal BS
MUSCULOSKELETAL: Moves with ease. Well perfused. Mild bilateral LE edema.
SKIN: Warm, dry, greyish hue
PSYCH: Normal mood and affect. Well kept, interactive and appropriate
NEUROLOGIC: Awake, alert and oriented. No focal neurological deficits
Scores
<Berenice Hedrick, CUSTOMER ACCOUNT TECHNICIAN - Last Filed: 08/01/23 18:37>
Heart Failure Risk
Heart Failure Risk Score: Yes
History of Stroke or TIA: No
History of intubation for respiratory distress: No
Heart rate on ED arrival >/= 110: No
SaO2 <90% on arrival on room air: No
HR >/=110 during 3min walk test (or too ill to perform test): No
ECG has acute ischemic changes: No
Urea >/=12mmol/L (BUN 33.6mg/dL): Yes
Serum CO2>/=35mmol/L: No
Troponin I or T elevated to RI Level (0.4mg/dL): Yes
NT-proBNP >/=5,000ng/L (5,000pg/ml): No
HF Risk Score: 3
Admission Status: HIGH RISK 15.9% Consider SNF treatment or admission to hospital
<Wilfredo Pryor MD - Last Filed: 08/01/23 19:07>
Heart Failure Risk
HF Risk Score: 3
Admission Status: HIGH RISK 15.9% Consider SNF treatment or admission to hospital
Course
<Berenice Hedrick NP - Last Filed: 08/01/23 18:37>
Orders/Labs/Results
Orders:
Orders
08/01/23 11:24
ECG [Electrocardiogram (*1)] Urgent
Reason for Study: Shortness of Breath
08/01/23 11:25
EKG- Treatment ONCE
08/01/23 12:07
CR Chest - 2 Views Urgent
Comment:
Reason For Exam: SOB, wt gain, CKD3, recent cardioversion
08/01/23 12:13
Complete Blood Count/With Diff Urgent
NT-proBNP Urgent
Comment: ADD ON
Troponin I Urgent
08/01/23 12:14
Type+Screen Urgent
Comprehensive Metabolic Panel Urgent
08/01/23 14:51
Add On- LAB Urgent
Tests Added?: ProBNP
Abnormal Lab Results
08/01/23 08/01/23
12:13 12:14
RBC 2.99 L 10^6/uL
(4.70-6.10)
Hgb 9.4 L g/dL
(13.0-18.0)
Hct 28.9 L %
(39.0-52.0)
MCV 96.7 H fL
(80.0-94.0)
MCH 31.4 H pg
(27.0-31.0)
MCHC 32.5 L g/dL
(33.0-37.0)
Absolute Lymphs (auto) 0.2 L 10^3/uL
(1.2-3.4)
Neutrophils % 93.0 H %
(42.2-75.2)
Lymphocytes % 2.9 L %
(20.5-51.1)
BUN 36 H mg/dl
(9-20)
Creatinine 2.7 H mg/dL
(0.7-1.3)
Glucose 135 H mg/dl
(70-99)
Alkaline Phosphatase 138 H U/L
(38-126)
Troponin I 0.131 H* ng/ml
Total Protein 6.1 L g/dl
(6.3-8.2)
Antibody Screen Positive A
(Negative)
08/01/23 12:13
08/01/23 12:14
Vital Signs
Initial and Last Documented VS:
Initial Vital Signs
Temp Pulse Resp BP Pulse Ox
98.3 F 60 18 141/67 98
08/01/23 11:22 08/01/23 11:22 08/01/23 11:22 08/01/23 11:22 08/01/23 11:22
Last Documented Vital Signs
Temp Pulse Resp BP Pulse Ox
98.3 F 53 22 132/70 94
08/01/23 11:22 08/01/23 12:30 08/01/23 12:30 08/01/23 12:30 08/01/23 14:15
Statistical Clerk Advertising consulted with Physician
Statistical Clerk Advertising consulted with physician?: Yes
Name of Physician Consulted: Roya
<Wilfredo Pryor MD - Last Filed: 08/01/23 19:07>
Orders/Labs/Results
Orders:
Orders
08/01/23 11:24
ECG [Electrocardiogram (*1)] Urgent
Reason for Study: Shortness of Breath
08/01/23 11:25
EKG- Treatment ONCE
08/01/23 12:07
CR Chest - 2 Views Urgent
Comment:
Reason For Exam: SOB, wt gain, CKD3, recent cardioversion
08/01/23 12:13
Complete Blood Count/With Diff Urgent
NT-proBNP Urgent
Comment: ADD ON
Troponin I Urgent
08/01/23 12:14
Type+Screen Urgent
Comprehensive Metabolic Panel Urgent
08/01/23 14:51
Add On- LAB Urgent
Tests Added?: ProBNP
Abnormal Lab Results
08/01/23 08/01/23
12:13 12:14
RBC 2.99 L 10^6/uL
(4.70-6.10)
Hgb 9.4 L g/dL
(13.0-18.0)
Hct 28.9 L %
(39.0-52.0)
MCV 96.7 H fL
(80.0-94.0)
MCH 31.4 H pg
(27.0-31.0)
MCHC 32.5 L g/dL
(33.0-37.0)
Absolute Lymphs (auto) 0.2 L 10^3/uL
(1.2-3.4)
Neutrophils % 93.0 H %
(42.2-75.2)
Lymphocytes % 2.9 L %
(20.5-51.1)
BUN 36 H mg/dl
(9-20)
Creatinine 2.7 H mg/dL
(0.7-1.3)
Glucose 135 H mg/dl
(70-99)
Alkaline Phosphatase 138 H U/L
(38-126)
Troponin I 0.131 H* ng/ml
Total Protein 6.1 L g/dl
(6.3-8.2)
Antibody Screen Positive A
(Negative)
08/01/23 12:13
08/01/23 12:14
Vital Signs
Initial and Last Documented VS:
Initial Vital Signs
Temp Pulse Resp BP Pulse Ox
98.3 F 60 18 141/67 98
08/01/23 11:22 08/01/23 11:22 08/01/23 11:22 08/01/23 11:22 08/01/23 11:22
Last Documented Vital Signs
Temp Pulse Resp BP Pulse Ox
98.3 F 53 22 132/70 94
08/01/23 11:22 08/01/23 12:30 08/01/23 12:30 08/01/23 12:30 08/01/23 14:15
<Berenice Hedrick, CUSTOMER ACCOUNT TECHNICIAN - Last Filed: 08/01/23 18:37>
MDM/Problems Addressed
Differential Diagnosis Includes:
CHF, fluid overload, orthostatic hypotension, dehydration, anemia, medication side effect (from Lasix)
MDM/Problems Addressed:
72 yo male with h/o afib on Eliquis, cardioversion 07/17/23, cardiac stents 2010, HTN, chronic CHF w PEF, CKD 3, mult myeloma, depression, presents stating 'I'm retaining fluid.' This a.m. he felt lightheaded walking from his truck into the pharmacy
and had to sit for a while fearing he would pass out. Past two weeks noted wt gain of 8 lbs with increasing LE and feet swelling.
His Commodities Clerk in [place] increased his Lasix from 80 mg BID to 100 mg BID 2 weeks ago and then up to 120 mg BID one week ago.
Afebrile, NAD
EKG: sinus bradycardia w 1st degree block (new from last) Left axis deviation.
Orthostatics done by this examiner:
Supine BP 131/70 HR 55
Sitting BP 135/74 HR 56
Standing BP 132/74 HR 58 pt does state he feels weak and lightheaded
12:45 pm
CBC: Consistent with his chronic anemia, no clinically significant abnormality
CMP: Consistent with his chronic kidney disease.
Troponin 0.131 Trending down down from 0.163 on 06/13 status post cardioversion
CXR: Radiology IMPRESSION: Bilateral small pleural effusions and adjacent atelectasis, left greater than right. Unchanged on the left and slightly improved on the right as compared with prior.
4:40 PM
BNP 7240 much improved.
15.9 HF risk score skewed due to elevated Troponin which is trending down post recent cardioversion
Nothing acutely concerning in workup today
Pt inform of relatively stable workup
Pt ambulated in room, pulse ox maintained at 94-97% RA. States 'I still feel the same as when I came in'
Case discussed with Dr. Pryor who examined pt
Pt stable for discharge. He state he has good relationship with his Commodities Clerk and will have no problem contacting him tomorrow.
copies of labs and CXR report given to pt.
<Berenice Hedrick NP - Last Filed: 08/01/23 18:37>
*EKG
EKG Intrepretation Date: 08/01/23
Interpretation: abnormal
Comparison EKG: changes noted (increased WI interval)
Rate: bradycardiac
Rhythm: sinus
Dawn: left axis deviation
Interval: first degree heart block
QRS Pattern: normal QRS
Ischemia: no ischemia
*Critical Care Note
Total Time (30-74mins, 75-104mins- exclusive of procedures): Not Applicable
ED Attending Note
<Berenice Hedrick CUSTOMER ACCOUNT TECHNICIAN - Last Filed: 08/01/23 18:37>
-
Portions of this chart may have been created with voice recognition software.� Occasional wrong word or��sound alike� substitutions may have occurred due to the inherent limitations of voice recognition software.
<Wilfredo Pryor MD - Last Filed: 08/01/23 19:07>
ED Attending Note
Patient seen and examined by attending physician: Yes
ED Attending Note:
Patient with history of chronic kidney disease who is receiving dialysis monthly, as arranged by his body mechanic in [place], presents to ED secondary to increasing shortness of breath with dizziness, during ambulation over the past 24 hours. Of
note, 5 days ago, his body mechanic increased his Lasix secondary to continual leg swelling. Patient also is restricted to 64 mL of water during the day, as recommended by his regional director. Denies fever or chills. Denies chest pain. Denies
headache. Denies nausea, vomiting, or diarrhea. Denies recent weight changes. Patient denies any symptoms when laying still.
Physical Exam
General: no apparent distress, chronically ill appearing. afebrile
Head: nc/at. eomi
Neck: supple. no meningeal signs.
Heart: s1/s2 regular rate and rhythm, no murmur. equal radial pulses.
Lungs: no acute respiratory distress. clear bilaterally
Abdomen: normal bowel sounds. not tender.
Neuro: alert and oriented. no focal neurological deficits
Skin: no rash
Psychiatric: well kept. interactive and cooperative
Extremities: LE b/l edema. no calf tenderness.
Patient with an unremarkable workup in ED, although creatinine appears to be mildly worse. Otherwise orthostatic vital signs stable. Patient is able to ambulate independently with steady gait, without any symptoms prior to discharge. Patient's
presenting symptoms likely secondary to fluid restriction along with increased Lasix recently. As such, patient will be discharged home at this time, with recommendation to discuss with his body mechanic upon discharge, to discuss medication
adjustments as well as short-term increase of fluid intake. Patient expresses understanding at time of discharge.
Discharge Plan
Departure
Patient Disposition: Home (Routine Discharge)
Date of Disposition: 08/01/23
Time of Disposition: 17:17
Patient with high blood pressure during this ER visit?: No
Condition: Good
Discharge Problem:
Lightheadedness, Acute dehydration
Instructions: Weakness
Prescriptions:
No Action
lamotrigine 100 MG tablet
100 mg PO BID
ezetimibe 10 MG tablet
10 mg PO HS
rosuvastatin 10 MG tablet
10 mg PO DAILY
aspirin 81 MG tablet,delayed release (DR/EC)
81 mg PO DAILY
allopurinol 100 MG tablet
100 mg PO DAILY
isosorbide mononitrate 30 mg Tablet Extended Release 24 Hr
30 mg PO BID
montelukast [Singulair] 10 mg Tablet
10 mg PO UD
Rx Instructions:
take the night before, night of, and night after Darzalex infusion.
gabapentin [Neurontin] 100 mg Capsule
100 mg PO TID
acyclovir 400 mg Tablet
400 mg PO BID
dexamethasone 4 mg Tablet
4 mg PO UD
Rx Instructions:
take the day after Darzalex infusion and for 2 days after.
Darzalex 20 mg/mL Solution
1,800 mg IV QMONTH
risperidone 0.5 mg Tablet
0.25 mg PO HS
Venclexta 100 mg Tablet
200 mg PO DAILY
Eliquis 5 mg tablet
5 mg PO BID
potassium chloride 20 mEq Tablet Extended Release
20 meq PO DAILY
hydralazine 25 mg tablet
50 mg PO TID
amiodarone 200 mg Tablet
200 mg PO DAILY
hydralazine [Apresoline] 25 mg Tablet
25 mg PO QID
furosemide [Lasix] 80 mg tablet
120 mg PO BID
Rx Instructions:
Patient to take Lasix 80 mg daily but Lasix 80 mg twice a day on Sunday.
sennosides [senna] 8.6 mg Tablet
8.6 mg PO BIDPRN PRN (Reason: constipation)
Referrals:
NeurologistDr. [Other]
NeurologistDr. Olivia [Other] - Tomorrow
NONE,* [Active] -
Activity Restrictions/Additional Instructions:
As we discussed, contact your Commodities Clerk tomorrow to discuss today's visit.
You may be dehydrated
Take copy of all test results with you.
You may return here at any time for worsening symptoms or feeling sicker in any way
Interventions
Interventions:
*Risk Screen - Suicide Last Done: 08/01/23 11:22
*General Assessment Last Done: 08/01/23 11:22
*Neglect/Abuse Screening Last Done: 08/01/23 11:22
ED- Fall Risk Assessment Last Done: 08/01/23 11:47
*Nursing Disposition Last Done: 08/01/23 17:47
ED- Cardiac Assessment Last Done: 08/01/23 11:47
ED- Pulmonary Assessment Last Done: 08/01/23 11:47
Discharge Date and Time
Discharge Date/Time: 08/01/23 17:47
Print Language: WELSH
[2023-08-01 11:56] VITALS: BP 131/70
[2023-08-01 11:58] VITALS: BP 135/74
[2023-08-01 12:00] VITALS: BP 135/69
[2023-08-01 12:22] LABS: % Basophils 1.1 % (0-2); % Immature Granulocytes 0.4 % (0-0.5); % Lymphocytes 2.9 % (20.5-51.1); % Monocytes 2.6 % (1.7-9.3); Absolute Basophils 0.1 10^3/uL (0-0.2); Absolute Lymphocytes 0.2 10^3/uL (1.2-3.4); Absolute Monocytes 0.1 10^3/uL (0.1-0.6); Absolute Neutrophils 5.1 10^3/uL (1.4-6.5); Hematocrit 28.9 % (39.0-52.0); Hemoglobin 9.4 g/dL (13.0-18.0); Mean Corp Hgb Conc. 32.5 g/dL (33.0-37.0); Mean Corpuscular Hgb 31.4 pg (27.0-31.0); Mean Corpuscular Volume 96.7 fL (80.0-94.0); Mean Platelet Volume 9.8 fL (7.4-10.4); Nucleated Red Blood Cells % 0 % (-); Platelet Count 146 10^3/uL (130-400); Red Blood Cell Count 2.99 10^6/uL (4.70-6.10); Red Cell Dist. Width 14.2 % (11.5-14.5); White Blood Cell Count 5.5 10^3/uL (4.8-10.8)
[2023-08-01 12:30] VITALS: BP 132/70
[2023-08-01 12:45] LABS: ALT (SGPT) 16 U/L (0-50); AST (SGOT) 34 U/L (17-59); Albumin 3.7 g/dl (3.5-5.0); Alkaline Phosphatase 138 U/L (38-126); Blood Urea Nitrogen 36 mg/dl (9-20); Calcium 8.5 mg/dl (8.4-10.2); Carbon Dioxide 28 mmol/L (22-30); Chloride 100 mmol/L (98-107); Glucose 135 mg/dl (70-99); Potassium 3.7 mmol/L (3.5-5.1); Sodium 138 mmol/L (135-145); Total Bilirubin 0.7 mg/dl (0.2-1.3); Total Protein 6.1 g/dl (6.3-8.2); eGFR 24.13
[2023-08-01 12:53] LABS: Troponin I 0.131 ng/ml
[2023-08-01 16:22] LABS: NT-proBNP 7240 pg/ml
== END 2023-08-01 17:47 | disposition home or self-care (01) ==
LOC: EMR 11:20
PROVIDERS: Registered Nurse; EMERGENCY PHYSICIAN Emergency Medicine; FAMILY PHYSICIAN Internal Medicine
DX: E86.0 Dehydration (principal); R42 Dizziness and giddiness; R06.02 Shortness of breath; R53.1 Weakness; R53.83 Other fatigue; R60.0 Localized edema; I44.0 Atrioventricular block, first degree; D64.9 Anemia, unspecified; J90 Pleural effusion, not elsewhere classified; J98.11 Atelectasis; C90.00 Multiple myeloma not having achieved remission; I13.0 Hypertensive heart and chronic kidney disease with heart failure and stage 1 through stage 4 chronic kidney disease, or unspecified chronic kidney disease; N18.30 Chronic kidney disease, stage 3 unspecified; I50.9 Heart failure, unspecified; I48.91 Unspecified atrial fibrillation; F32.A Depression, unspecified; I25.10 Atherosclerotic heart disease of native coronary artery without angina pectoris; E78.00 Pure hypercholesterolemia, unspecified; I25.2 Old myocardial infarction; Z95.5 Presence of coronary angioplasty implant and graft; Z96.653 Presence of artificial knee joint, bilateral; Z85.828 Personal history of other malignant neoplasm of skin; Z87.891 Personal history of nicotine dependence; Z79.01 Long term (current) use of anticoagulants; Z88.3 Allergy status to other anti-infective agents; Z88.0 Allergy status to penicillin; Z88.2 Allergy status to sulfonamides; Z88.8 Allergy status to other drugs, medicaments and biological substances; Z91.018 Allergy to other foods; M19.90 Unspecified osteoarthritis, unspecified site
CPT/HCPCS: 99283; 71046; 80053; 83880; 84484; 85025; 86850; 86870; 86900; 86901; 93005

== ENCOUNTER 2023-08-06 17:01 | Inpatient (IN) | payer MEDICARE, SELFPAY ==
[2023-08-06] VITALS (40 sets, daily range): BP systolic 61–126; BP diastolic 37–59; BMI 27.9
[2023-08-06 15:04] LABS: % Basophils 0.4 % (0-2); % Immature Granulocytes 0.5 % (0-0.5); % Lymphocytes 4.8 % (20.5-51.1); % Monocytes 9.3 % (1.7-9.3); Absolute Lymphocytes 0.4 10^3/uL (1.2-3.4); Absolute Monocytes 0.7 10^3/uL (0.1-0.6); Absolute Neutrophils 6.6 10^3/uL (1.4-6.5); Mean Corp Hgb Conc. 32.8 g/dL (33.0-37.0); Mean Corpuscular Hgb 31.3 pg (27.0-31.0); Mean Corpuscular Volume 95.4 fL (80.0-94.0); Mean Platelet Volume 9.5 fL (7.4-10.4); Nucleated Red Blood Cells % 0 % (-); Platelet Count 165 10^3/uL (130-400); Red Blood Cell Count 1.95 10^6/uL (4.70-6.10); White Blood Cell Count 7.7 10^3/uL (4.8-10.8)
[2023-08-06 15:06] LABS: Hematocrit 18.6 % (39.0-52.0); Hemoglobin 6.1 g/dL (13.0-18.0)
[2023-08-06 15:13] LABS: INR 2.51
[2023-08-06 15:14] LABS: APTT 32.9 Sec (23.4-35.0)
[2023-08-06 15:16] LABS: ALT (SGPT) 12 U/L (0-50); AST (SGOT) 21 U/L (17-59); Albumin 2.2 g/dl (3.5-5.0); Alkaline Phosphatase 74 U/L (38-126); Blood Urea Nitrogen 42 mg/dl (9-20); Calcium 7.7 mg/dl (8.4-10.2); Carbon Dioxide 28 mmol/L (22-30); Chloride 100 mmol/L (98-107); Estimated Creatinine Clearance 28 ml/min; Glucose 202 mg/dl (70-99); Potassium 3.2 mmol/L (3.5-5.1); Sodium 134 mmol/L (135-145); Total Bilirubin 0.6 mg/dl (0.2-1.3); Total Protein 3.9 g/dl (6.3-8.2); eGFR 27.79
[2023-08-06 15:29] LABS: NT-proBNP 11200 pg/ml
[2023-08-06] MEDS: LEVOPHED 250 IV ×2 (15:50→20:45)
[2023-08-06] MEDS: KCENTRA 80 UNIT IV (15:56)
--- NOTE | 2023-08-06 16:20 | PHANOTE ---
08/06/2023, [email or web address], used pt.'s home med. list, pharmacy fill data, and [facility] records from 08/03/2023 to compile a list of pt.'s meds.; the instructions for the Hydralazine differ between all three sources; per pt.'s home med. list, he takes this
med. QID; however, it is prescribed for pt. to take BID per pharmacy records and TID per [facility] records from 08/03/2023; additionally, pt.'s Lasix is prescribed 80 mg BID (on pt.'s home med. list this way too), but [facility] has it prescribed 120 mg BID.
--- NOTE | 2023-08-06 16:21 | CON.INTV ---
Consultation
Consultation Request
Date/Time Consultation Requested: 08/06/23
Date/Time Consultation Performed: 08/06/23
Performing Provider: Aileen
Reason for Consultation: ICU
Medical History
-
History of Present Illness:
72 year old M with history of MM, amyloid, CHF presenting this AM with acute on set SOB and presyncope. Then developed acute onset L sided flank pain 11/26. He recently underwent cardioverson for Afib 07/17/23, placed on lasix for fluid retention.
In ER, notably pale. CBC showing anemia, Hb 6.1 (last Hb 9.4 on 08/01/23). INR 2.51. CT AP showing acute retroperitoneal hemotoma likely from L kidney. He is on Eliquis for Afib. Denies any recent trauma/surgery. Of note, proBNP 11,200 on
admission, he is hypotensive presumably from volume loss and placed on levophed.
Follows with Dr Crocker for MM placed on Darzalex for treatment. Due to this med, his transfusions require antibody screening. He has not yet received blood. Given IVF bolus. K centra ordered.
Denies history of lung disease, nonsmoker.
Past Medical History
Past Medical History: Other (see list below)
Social History
Tobacco: Non-smoker
Alcohol: None
Drug: None
Family History
Family History: Reviewed & Not Pertinent
Allergies / Home Medications
Allergies
Allergy/AdvReac Type Severity Reaction Status Date / Time
atorvastatin Allergy MUSCLE Verified 08/06/23 15:01
CRAMPS
Cephalosporins Allergy kidney Verified 08/06/23 15:01
disease
coconut Allergy vomits Verified 08/06/23 15:01
penicillin V Allergy Vomiting Verified 08/06/23 15:01
Penicillins Allergy vomit Verified 08/06/23 15:01
pregabalin [From Lyrica] Allergy Tongue Verified 08/06/23 15:01
Swelling
simvastatin Allergy muscle Verified 08/06/23 15:01
cramps
Lmruidh-XGK-CyO Reductase Allergy MUSCLE Verified 08/06/23 15:01
Inhibitor CRAMPS
[Egbzwel-Coa-Uze Reductase
Inhibitor]
Sulfa (Sulfonamide Allergy interacts Verified 08/06/23 15:01
Antibiotics) with lasix
Home Medications
�Medication �Instructions �Recorded �Confirmed �Last Taken �Type
lamotrigine 100 mg tablet 100 mg PO BID Neurological 07/24/19 08/06/23 08/01/23 History
Condition
ezetimibe 10 mg tablet 10 mg PO HS High cholesterol 08/26/19 08/06/23 07/31/23 History
rosuvastatin 10 mg tablet 10 mg PO DAILY High cholesterol 08/26/19 08/06/23 08/01/23 History
aspirin 81 mg tablet,delayed 81 mg PO DAILY Blood clot 08/27/19 08/06/23 08/01/23 History
release prevention/tx
allopurinol 100 mg tablet 100 mg PO DAILY Gout 06/15/20 08/06/23 08/01/23 History
gabapentin 100 mg capsule 100 mg PO TID Pain 09/26/21 08/06/23 08/01/23 History
(Neurontin)
isosorbide mononitrate 30 mg 30 mg PO BID HEART CONDITION 09/26/21 08/06/23 08/01/23 History
tablet,extended release 24 hr
montelukast 10 mg tablet 10 mg PO UD bone pain prevention 09/26/21 08/06/23 07/02/23 History
(Singulair)
acyclovir 400 mg tablet 400 mg PO BID Infection 01/03/23 08/06/23 08/01/23 History
dexamethasone 4 mg tablet 4 mg PO UD Anti-Inflammatory 01/03/23 08/06/23 07/03/23 History
apixaban 5 mg tablet (Eliquis) 5 mg PO BID Blood Clot 04/20/23 08/06/23 08/01/23 History
Prevention/Tx
daratumumab 20 mg/mL intravenous 1,800 mg IV QMONTH Cancer 04/20/23 08/06/23 07/01/23 History
solution (Darzalex)
venetoclax 100 mg tablet 200 mg PO DAILY Cancer 04/20/23 08/06/23 08/01/23 History
(Venclexta)
potassium chloride 20 mEq 20 meq PO DAILY Electrolyte 06/14/23 08/06/23 08/01/23 History
tablet,extended release Repletion
amiodarone 200 mg tablet 200 mg PO DAILY 07/17/23 08/06/23 08/01/23 History
furosemide 80 mg tablet (Lasix) 120 mg PO BID Fluid 07/17/23 08/01/23 08/01/23 History
Retention/Swelling
hydralazine 25 mg tablet 25 mg PO QID 07/17/23 08/01/23 08/01/23 History
metolazone 5 mg tablet 5 mg PO MOWEFR 08/06/23 08/06/23 Unknown History
risperidone 0.25 mg tablet 0.25 mg PO HS 08/06/23 08/06/23 Unknown History
Review of Systems
-
History Source: Patient
All other systems: Negative unless noted
Vitals / Labs / Diagnostic Testing
Vital Signs
Temp Pulse Resp BP Pulse Ox
97.5 F 64 23 125/41 98
08/06/23 15:00 08/06/23 16:15 08/06/23 16:15 08/06/23 16:15 08/06/23 16:10
Lab Data
08/06/23 14:54
08/06/23 14:54
Laboratory Results
08/06/23
14:54
PT 27.0 H
INR 2.51
APTT 32.9
Diagnostic Testing:
Physical Exam
-
HEENT: Normocephalic, Anicteric and Moist Mucous Membranes
Cardiovascular: S1/S2 and Regular Rhythm
Respiratory: Rales and Non-Labored Respirations
GI: Soft, Non Distended and Tender (L side)
Neurology: Awake, Alert, Oriented, AO x 3 and No Motor Deficits
Skin: Warm and Dry
General: Pain and Other (NAD, discomfort noted)
Assessment
-
72 year old M with history of MM, amyloid, CHF presenting this AM with acute on set SOB and presyncope. Then developed acute onset L sided flank pain 11/26. He recently underwent cardioversion for Afib 07/17/23, placed on lasix for fluid retention.
In ER, notably pale. CBC showing anemia, Hb 6.1 (last Hb 9.4 on 08/01/23). INR 2.51. CT AP showing acute retroperitoneal hematoma likely from L kidney. On Eliquis for AFib. Of note, proBNP 11,200 on admission, he is hypotensive presumably from
volume loss and placed on levophed.
Acute hypovolemic shock on pressors
Acute L sided retroperitoneal hemorrhage
Renal artery infarct
Acute coagulopathy
Acute HFpEF exacerbation
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
Coronary artery disease s/p Cardiac stents x 4 2010
Atrial fibrillation s/p CV
Stage 3b chronic kidney disease
HTN
Chronic HF pEF
HLD
COPD --moderate obstruction PFT 2020/moderately severe restriction/moderate diffusion impairment
Pleural effusion s/p L thora 04/16/23 and 04/05/23- 1200mL and 1000mL of yellow pleural fluid.
Left knee torn meniscus s/p arthroscopic repair 2000
Torn rotator cuff x 3 97, 98, 2000
Hernia repair
B/l knees replaced 2010 with revisions 2012
MM Follows with Dr Crocker on Darzalex for treatment
Former smoker, 30+ pack years
Plan
No current signs of metabolic encephalopathy or MS changes/following commands
Pain/sedation: PRN tyleonol, IV dilaudid
RASS goals: 0
Hemodynamically unstable, requiring pressors.
Requiring pressors: levophed initiated
Cardiac history reviewed--HTN, HFpEF, Afib s/p CV, on lasix at home
On Eliquis--hold
Prior ECHO reviewed indicating reduced EF in past
Hold home meds while hypotensive
May need repeat ECHO
Oxygen needs: supplemental O2
Prior history of lung disease: none per patient, former smoker
PFT from 2020 suggesting COPD
History of pleural effusions s/p thora x 2 of transudative fluid
Supplemental O2 as indicated to maintain sats > 89%
CXR/CT reviewed indicating pleural effusions
CT CAP showing acute intraab bleed
NPO, resume diet when able
Shipwright Supervisor recommendations
Aspiration precautions, HOB > 30 degrees
Speech therapy eval can be considered if at elevated risk
GI prophylaxis if indicated for mechanical ventilation >48 hours, prior history of GERD, stress ulcer formation in the critically ill
CKD stage III -- creat at baseline, mid 2s
Can consider renal consult
Uro consult for renal infarct vs hemorrhage
IR consult placed as well for intervention if possible
Void trials
Follow urine output, critical I/Os
Replete electrolytes as needed
Given hypotension, would not be unreasonable to start empiric coverage for bleeding
[place] culture
Follow fever trend, WBC count
Check lactate
MM history, known to [place]
Heme consult
CBC reviewed, acute anemia from intra-abd bleeding
INR at 2 w/ coagulopathy.
DVT prophylaxis as assessed based on risk, including mechanical SCDs
Can transfuse if indicated for Hb <7, plt < 10--transfusion based on antibody screening
K centra ordered
Hold home MM meds, resume chronic PO steroids when able
No prior h/o diabetes or thyroid disease
Discussed with care team including ER.
We will follow
Diagnostic Data
Chest X-Ray: 08/06/23- Low lung volumes with small left pleural effusion and left basilar atelectasis.
08/01/23- Bilateral small pleural effusions and adjacent atelectasis, left greater than right. Unchanged on the left and slightly improved on the right as compared with prior.
CT Scan:
Echo: 04/23/23- Moderate concentric left ventricular hypertrophy. Mildly reduced left ventricular systolic function. Left ventricular ejection fraction is 46%, by Zavala' s method. GLS Endo peak avg.= -6.4 %. Normal right ventricular size and
function. Right ventricular hypertrophy. No significant valvular disease. Compared to previous echo 01/09/23, the ejection fraction had decreased from normal to mildly decreased. Once again GLS and e' are decreased.
PFT's: 05/18/20: FEV1 1.74L 52%, FVC 2.58L 57%, ratio 68 post FEV1 1.79L 54%. TLC 4.25L 58%, DLCO 50%
Reports and relevant images were personally reviewed.
-----
Critical care time 80 mins -- this includes review of history, physical exam, medications, hemodynamic/ventilator parameters, laboratory data, imaging and discussion with house staff, pharmacy, respiratory therapy, product development assistant, and nursing.
--- NOTE | 2023-08-06 16:24 | ED.GENMED ---
History of Present Illness
General
Chief Complaint: Heart Rate Problem
Source: patient and ambulance crew
Exam Limitations: clinical condition
Time Seen by Provider: 08/06/23 14:56
Travel History
Have you had any contact with someone who has COVID-19?: No
Do you have any symptoms of coronavirus? Fever > 100 degrees, chills, cough, shortness of breath, sore throat, loss of taste or smell, muscle aches, or headache?: No
History of Present Illness
History of Present Illness:
72-year-old male who presents with acute left flank pain. Patient states the pain is in the left flank and into the left chest. EMS found him to be bradycardic and hypotensive. Did get 1.5 L of fluid, aspirin 324 and fentanyl. Also got a dose of
Zofran. The patient denies trauma. Does feel just 'crappy'. EMS initially reported no anticoagulation but further interviewing does reveal that he is on Eliquis.
Past History
Past History
ED Past Medical History: CAD, Cancer, CHF, HTN, Hypercholesterolemia, AR and Other (chronic renal disease, amyloidosis, multiple myeloma)
ED Past Surgical History: Cardiac (Stents X 4) and Orthopedic
Social History
Tobacco: Former smoker
Alcohol: Occasional
Personal:
Living: alone
Employment: Not employed
Phy Exam
Physical Exam
Physical Exam:
CONSTITUTIONAL Patient alert and oriented to person, place and time. ill-appearing. Vital signs reviewed. Pale, hypotensive
HEAD atraumatic, normocephalic.
EYES eyelids normal to inspection, Extraocular muscles intact, Conjunctiva normal, Sclera normal.
NECK normal range of motion, Trachea midline, no jugular venous distention.
RESPIRATORY CHEST No respiratory distress noted, Chest expansion equal, Bilateral breath sounds clear.
CARDIOVASCULAR regular and bradycardic
ABDOMEN moderate to severe tenderness on the left side, mild distention.
BACK normal inspection, no obvious deformities
UPPER EXTREMITY range of motion normal, Motor strength normal, no cyanosis, no edema.
LOWER EXTREMITY range of motion normal, Motor strength normal, no cyanosis, no edema.
NEURO Speech normal, No focal motor deficits, [place] coma scale 15, Memory normal, Cranial Nerves intact to screening exam.
Course
Orders/Labs/Results
Orders:
Orders
08/06/23 14:51
Electrocardiogram (*1) Urgent
Reason for Study: Chest Pain
EKG- Treatment ONCE
08/06/23 14:54
Type+Screen Urgent
BNP [NT-proBNP] Urgent
Complete Blood Count/With Diff Urgent
Comprehensive Metabolic Panel Urgent
Protime/PTT Urgent
Troponin I Urgent
08/06/23 14:56
CR Chest Portable - 1 View Urgent
Comment:
Reason For Exam: cp
Reason Study Needs to be Portable: Patient Unstable
08/06/23 Dinner
NPO
Allow oral meds: Yes
Allow clear liquids: Sips of Clears
08/06/23 15:18
Emergent Blood Release Urgent
Blood Bank Products: *Packed RBC Leuko(PRBC's)
Quantity: 2
Reason: Bleeding
A Blood Permit is Required for all Blood.
FOR LAB PICKUP:
Take order sheet to Blood Bank to picker and packer blood products in validated cooler
Immediately return to patient care area.
Blood products released by
Blood Products picked up by
Sent to
Date and Time
08/06/23 15:19
IV Insert/Care/Rem.- Treatment PRN
08/06/23 15:21
CT Chest/abd/pelvis Angio W/wo Stat
Comment:
Reason For Exam: flank pain, chest pain
08/06/23 15:23
CT Head W/o Iv Contrast Urgent
Comment:
Reason For Exam: change in ms
08/06/23 15:39
Prothrombin Complex(Pcc),Human [Kcentra] 2,184 unit Empty Viaflex Container 100 ml [Viaflex Empty Container] 80 ml IV NOW
Does patient have a dx of serious acute active bleeding?: Yes
Does patient have prior history of HIT?: No
Urgent surgery/invasive procedure planned in next 6 hours?: No
08/06/23 15:42
NORepinephrine 4 MG/250 ML [Levophed] 4 mg in 250 ml .ROUTE .STK-MED
08/06/23 15:46
NORepinephrine 4 MG/250 ML [Levophed] 4 mg in 250 ml IV NOW
Initial dose in mcg/min, then titrate:: 2
Titrate to keep:: MAP > 65 mmHg
Titrate by mcg/min:: 1-2 mcg/min
Frequency of titrations (minutes):: 5
Maximum dose in ICU in mcg/min:: 30
Maximum dose in IMU in mcg/min:: 8
Maximum dose in IVU in mcg/min:: 4
Begin to taper infusion when:: Remained at goal for 4hrs
Taper by mcg/min:: 1-2 mcg/min
Frequency of taper (minutes) if patient maintains goal:: 30
Taper to off?: Yes
If infusion off & no longer maintaining goal:: Contact Provider
08/06/23 15:51
Phenylephrine HCl/0.9% NaCl [Al-Synephrine] 100 mcg IV STAT STA
08/06/23 16:32
Admit/Transfer Patient As Directed
Co-Sign Provider:
Level of Care: Inpatient admission
Assign to:: ICU
Physician / Group: xiomara
Diagnosis: hemorrhagic shock, retroperitoneal hemorrhage
Reason for Hospitalization: hemorrhagic shock, retroperitoneal hemorrhage
Expected length of stay greater than two midnights?: Yes
ELOS- Estimated Length of Stay in days: 2
I certify the patient meets the requirements for IP care: Yes
08/06/23 16:33
Code Status As Directed
Resuscitation Status: Full Code
08/06/23 16:39
Potassium Chloride [KCl] 40 meq 0.9% Sodium Chloride 250 ml [Nss] 250 ml IV NOW
08/06/23 16:44
IRAD CONSULT Stat
Consulting Provider: Alexi Lazaro
Was physician already notified: Yes
Reason for Consult/Procedure: RP hemorrhage
Acknowledgement that appropriate orders are entered: Yes
08/06/23 16:54
Heparin 1000 Units/500 ml [Heparin] 3,000 units in 1,500 ml .ROUTE .STK-MED
Lidocaine 2% [Xylocaine 2% Mdv] 20 ml .ROUTE .STK-MED ONE
08/06/23 19:07
HYDROmorphone [Dilaudid] 0.5 mg IV Q4HPRN PRN
08/06/23 19:07
Consult Interventional Radiology [IRAD CONSULT] Routine
Consulting Provider: Alexi Lazaro
Was physician already notified: Yes
Reason for Consult/Procedure: retroperiotneal hemorrhage
Acknowledgement that appropriate orders are entered: Yes
Net Developer Software Engineer C Consult Routine
Consulting Provider: Lindsey Gallagher
Was physician already notified: Yes
UROLOGY CONSULT Routine
Consulting Provider: Tyler Hickman
Was physician already notified: Yes
Activity As Directed
Activity Level: As Tolerated
Pneumatic Compression Sleeves As Directed
Type: Knee high
Vital Signs As Directed
Frequency: Per unit guidelines
DX Deep Vein Thrombosis Video Routine
08/06/23 20:00
Acyclovir [Zovirax] 400 mg PO BID
Lamotrigine [Lamictal] 100 mg PO BID
08/06/23 22:00
Ezetimibe [Zetia] 10 mg PO HS
Gabapentin [Neurontin] 100 mg PO TID
Risperidone [Risperdal] 0.25 mg PO HS
08/07/23 06:00
Complete Blood Count/With Diff IN AM
Comprehensive Metabolic Panel IN AM
08/07/23 08:00
Allopurinol [Zyloprim] 100 mg PO DAILY
Amiodarone [Pacerone] 200 mg PO DAILY
Rosuvastatin Calcium [Crestor] 10 mg PO DAILY
venetoclax [Venclexta] See Dose Instructions PO DAILY
Abnormal Lab Results
08/06/23
14:54
RBC 1.95 L 10^6/uL
(4.70-6.10)
Hgb 6.1 L* D g/dL
(13.0-18.0)
Hct 18.6 L* %
(39.0-52.0)
MCV 95.4 H fL
(80.0-94.0)
MCH 31.3 H pg
(27.0-31.0)
MCHC 32.8 L g/dL
(33.0-37.0)
Absolute Neuts (auto) 6.6 H 10^3/uL
(1.4-6.5)
Absolute Lymphs (auto) 0.4 L 10^3/uL
(1.2-3.4)
Absolute Monos (auto) 0.7 H 10^3/uL
(0.1-0.6)
Neutrophils % 85.0 H %
(42.2-75.2)
Lymphocytes % 4.8 L %
(20.5-51.1)
PT 27.0 H Sec
(11.4-14.6)
Sodium 134 L mmol/L
(135-145)
Potassium 3.2 L mmol/L
(3.5-5.1)
BUN 42 H mg/dl
(9-20)
Creatinine 2.4 H mg/dL
(0.7-1.3)
Glucose 202 H mg/dl
(70-99)
Calcium 7.7 L mg/dl
(8.4-10.2)
Troponin I 0.130 H* ng/ml
Total Protein 3.9 L g/dl
(6.3-8.2)
Albumin 2.2 L g/dl
(3.5-5.0)
Antibody Screen Positive A
(Negative)
Crossmatch IS Only See Detail
08/06/23 14:54
08/06/23 14:54
Vital Signs
Initial and Last Documented VS:
Initial Vital Signs
Pulse Resp Pulse Ox
62 14 97
08/06/23 14:51 08/06/23 14:51 08/06/23 14:51
Last Documented Vital Signs
Temp Pulse Resp BP Pulse Ox
97.8 F 56 21 106/52 100
08/06/23 16:43 08/06/23 21:15 08/06/23 21:15 08/06/23 21:15 08/06/23 21:00
MDM/Problems Addressed
MDM/Problems Addressed:
Hemorrhagic shock, retroperitoneal hemorrhage, renal hemorrhage, severe acute anemia, chronic kidney disease, therapeutic coagulopathy
*Radiology
Radiology exam reviewed: preliminary read by ED provider (Large retroperitoneal hemorrhage noted)
*Pulse Oximetry
Patient hypoxic: no
*EKG
Interpreted by ED Provider?: Yes
Interpretation: abnormal
Rate: bradycardiac
Rhythm: sinus
Clare: left axis deviation
Ischemia: non-specific ST changes
*Manufacturing Scheduler Interpretation
Rate: bradycardiac
Interpretation: abnormal
Rhythm: sinus
*Critical Care Note
Total Time (30-74mins, 75-104mins- exclusive of procedures): 80 minutes
Data Reviewed
Review of Other/Old Records Reveals: Discharge Summary (Prior discharge summary reviewed revealing history of heart failure, A-fib, amyloidosis)
Source: patient
Prescriptions/Medications Considered But Not Given:
Considered FFP but Kcentra ordered
Patient Management
Discussion with other providers: Hospitalist, Cement Boat And Barge Loader (Case discussed with urology Dr. Hickman), Radiologist (Case discussed with interventional radiology for possible intervention) and Other (Case discussed with pulmonary critical care. Agrees
with management)
Escalation/DeEscalation of care consider admission/obs:
72-year-old male on Eliquis who presents with severe acute left flank pain. Found to be hypotensive. Did respond to fluids initially but hypotension persisted and taken emergently to CT scan revealing retroperitoneal hemorrhage. Kcentra ordered.
Unfortunately due to his medications he does have blood antibodies. Case was discussed with pathologist who is arranging 2 units of blood. Continue IV fluids but careful in light of history of CHF. IR is concerned about stenotic renal artery and
their ability to get to the bleeding vessel. Interventional radiology and urology are discussing possible options. Patient seen by hospitalist. Patient seen by ocean transportation intermediary.
Update Note
Update Note:
Blood now hanging. Urology at bedside. Patient will go to IR emergently
ED Attending Note
-
Portions of this chart may have been created with voice recognition software.� Occasional wrong word or��sound alike� substitutions may have occurred due to the inherent limitations of voice recognition software.
Discharge Plan
Departure
Patient Disposition: Admit
Date of Disposition: 08/06/23
Time of Disposition: 15:47
Admit to: ICU
Presentation/result/management discussed w/ accepting MD/DO: Hospitalist
Discharge Problem:
Retroperitoneal bleed, Hemorrhagic shock
Interventions
Interventions:
*General Assessment Last Done: 08/06/23 14:51
*Neglect/Abuse Screening Last Done: 08/06/23 14:51
ED- Fall Risk Assessment Last Done: 08/06/23 14:51
*Nursing Disposition Last Done: 08/06/23 18:16
ED- Cardiac Assessment Last Done: 08/06/23 14:51
ED- Pulmonary Assessment Last Done: 08/06/23 14:51
Discharge Date and Time
Discharge Date/Time: 08/06/23 17:15
--- NOTE | 2023-08-06 16:38 | HPS.HSE ---
Family Physician
-
Family Physician:
Chief Complaint
-
abdominal pain
History of Present Illness
72-year-old male past medical history of CAD status post stents, HFrEF, paroxysmal atrial fibrillation on Eliquis, CKD 3b, multiple myeloma, amyloidosis, hypertension, gout, hyperlipidemia, normocytic anemia, recurrent left pleural effusion,
chemotherapy-induced neuropathy, depression presenting with left-sided abdominal pain and flank pain which started today. Pain radiating up to the left side of the chest. Patient denies any trauma. He states that he was started on metolazone
today and is Lasix was recently increased and therefore has been urinating more frequently. He denies any fevers or chills. He is feeling nauseous currently but denied any prior vomiting. Denies any diarrhea. Denies any shortness of breath.
He denies smoking or alcohol use.
Medical History
Past Medical History
Past Medical History: Reports Other (CAD status post stents, HFrEF, paroxysmal atrial fibrillation on Eliquis, CKD 3b, multiple myeloma, amyloidosis, hypertension, gout, hyperlipidemia, normocytic anemia, recurrent left pleural effusion,
chemotherapy-induced neuropathy, depression)
Past Surgical History: Reports None
Social History
Tobacco: Non-smoker
Alcohol: None
Drug: None
Family History
Family History: Not pertinent
Allergies / Home Medications
Allergies reflects when Allergies were last updated in [employer].
Home Medications with original date entered in [employer]
Allergy/Medication List:
Allergies
Allergy/AdvReac Type Severity Reaction Status Date / Time
atorvastatin Allergy MUSCLE Verified 08/06/23 15:01
CRAMPS
Cephalosporins Allergy kidney Verified 08/06/23 15:01
disease
coconut Allergy vomits Verified 08/06/23 15:01
penicillin V Allergy Vomiting Verified 08/06/23 15:01
Penicillins Allergy vomit Verified 08/06/23 15:01
pregabalin [From Lyrica] Allergy Tongue Verified 08/06/23 15:01
Swelling
simvastatin Allergy muscle Verified 08/06/23 15:01
cramps
Nvwqlws-QNG-YqE Reductase Allergy MUSCLE Verified 08/06/23 15:01
Inhibitor CRAMPS
[Bhainka-Vzr-Puz Reductase
Inhibitor]
Sulfa (Sulfonamide Allergy interacts Verified 08/06/23 15:01
Antibiotics) with lasix
Home Medications
lamotrigine 100 mg tablet 100 mg PO BID Neurological Condition 07/24/19
ezetimibe 10 mg tablet 10 mg PO HS High cholesterol 08/26/19
rosuvastatin 10 mg tablet 10 mg PO DAILY High cholesterol 08/26/19
aspirin 81 mg tablet,delayed release 81 mg PO DAILY Blood clot prevention/tx 08/27/19
allopurinol 100 mg tablet 100 mg PO DAILY Gout 06/15/20
gabapentin 100 mg capsule (Neurontin) 100 mg PO TID Pain 09/26/21
isosorbide mononitrate 30 mg tablet,extended release 24 hr 30 mg PO BID HEART CONDITION 09/26/21
montelukast 10 mg tablet (Singulair) 10 mg PO UD bone pain prevention 09/26/21
acyclovir 400 mg tablet 400 mg PO BID Infection 01/03/23
dexamethasone 4 mg tablet 4 mg PO UD Anti-Inflammatory 01/03/23
apixaban 5 mg tablet (Eliquis) 5 mg PO BID Blood Clot Prevention/Tx 04/20/23
daratumumab 20 mg/mL intravenous solution (Darzalex) 1,800 mg IV QMONTH Cancer 04/20/23
venetoclax 100 mg tablet (Venclexta) 200 mg PO DAILY Cancer 04/20/23
potassium chloride 20 mEq tablet,extended release 20 meq PO DAILY Electrolyte Repletion 06/14/23
amiodarone 200 mg tablet 200 mg PO DAILY Arrhythmia 07/17/23
furosemide 80 mg tablet (Lasix) 120 mg PO BID Fluid Retention/Swelling 07/17/23
hydralazine 25 mg tablet 25 mg PO QID Blood Pressure 07/17/23
metolazone 5 mg tablet 5 mg PO MOWEFR Fluid Retention/Swelling 08/06/23
risperidone 0.25 mg tablet 0.25 mg PO HS Mental Health/Anxiety 08/06/23
Review of Systems
-
History Source: Patient
A 12 point ROS was completed and negative except as noted: Yes
Constitutional: Reports No Symptoms
EENT: Reports No Symptoms
Respiratory: Reports No Symptoms
Cardiac: Reports No Symptoms
Abdomen/GI: Reports See HPI
: Reports No Symptoms
Musculoskeletal: Reports No Symptoms
Skin: Reports No Symptoms
Neurological: Reports No Symptoms
Endocrine: Reports No Symptoms
Hematologic/Lymphatic: Reports No Symptoms
Psych: Reports No Symptoms
Physical Exam
Vital Signs
Vital Signs
Temp Pulse Resp BP Pulse Ox
97.5 F 64 23 125/41 98
08/06/23 15:00 08/06/23 16:15 08/06/23 16:15 08/06/23 16:15 08/06/23 16:10
Physical Exam
General: Well Developed, Well Nourished and No Apparent Distress
HEENT: NormoCephalic, Moist mucous membranes and Atraumatic
Respiratory: Clear
Cardiac: S1/S2 and Regular Rhythm; No Murmur or Rub
GI: Soft, Non Tender, Non Distended and Normal Bowel Sounds; No Organomegaly
Rectal: Deferred by Provider
Musculoskeletal: No Clubbing, No Cyanosis and No Edema
Skin: No Rash
Neuro: Nonfocal/grossly intact
Laboratory Results
-
08/06/23 14:54
08/06/23 14:54
Laboratory Results
PT 27.0 Sec (11.4-14.6) H 08/06/23 14:54
INR 2.51 08/06/23 14:54
APTT 32.9 Sec (23.4-35.0) 08/06/23 14:54
Total Bilirubin 0.6 mg/dl (0.2-1.3) 08/06/23 14:54
AST 21 U/L (17-59) 08/06/23 14:54
ALT 12 U/L (0-50) 08/06/23 14:54
Alkaline Phosphatase 74 U/L (38-126) 08/06/23 14:54
Troponin I 0.130 ng/ml H* 08/06/23 14:54
Data Reviewed
-
Lab Data: Labs Reviewed by me
Old Records: Reviewed
Impression/Plan
-
IMPRESSION:
PLAN:
# Hemorrhagic shock/acute blood loss anemia secondary to retroperitoneal hemorrhage from left kidney
-Hemoglobin 6.1 from 9.4 previously 5 days ago
-2 units of blood, difficult to obtain further blood due to antibodies
-Hold aspirin, Eliquis
-Kcentra given to reverse Eliquis
-Hold Lasix, metolazone
-Hold antihypertensives
-Patient currently on Levophed
-IR and urology consulted and discussing plan
# Hypokalemia
-Replete potassium
Paroxysmal atrial fibrillation
-Continue amiodarone
CAD status post stents
-Hold aspirin
-Hold isosorbide mononitrate
Normal ischemic myocardial injury in the setting of CKD/CAD
-Troponin level chronically elevated
Chronic HFrEF
-Hold metolazone, Lasix
CKD 3B
-Renal function at baseline
Essential hypertension
-Hold hydralazine
Hypercholesterolemia
-Continue statin
History of recurrent left pleural effusion
Amyloidosis
Multiple myeloma on immunotherapy-Patient on venclexta
-Patient on Darzalex, vencclexta
-Continue dexamethasone
-continue prophylactic acyclovir
Chemotherapy-induced neuropathy
-Continue gabapentin
Gout
-Continue allopurinol
Depression
-Continue Lamictal, risperidone
Full code
DVT prophylaxis�SCDs
NPO
--- NOTE | 2023-08-06 17:14 | CONS.URO ---
Consultation
-
Performing Provider: Peffer
Reason for Consultation: Renal hemorrhage
Medical History
History of Present Illness
72M, no prior urologic hx
past medical history of CAD status post stents, HFrEF, paroxysmal atrial fibrillation on Eliquis, CKD 3b, multiple myeloma, amyloidosis, hypertension, gout, hyperlipidemia, normocytic anemia, recurrent left pleural effusion, chemotherapy-induced
neuropathy, depression
presenting with 1 day of left-sided abdominal pain and flank pain which started this morning. Pain radiating up to the left side of the chest. Patient denies any trauma. Started on metolazone today and is Lasix was recently increased and therefore
has been urinating more frequently. He denies any fevers or chills. + nausea, no vomiting until after ED workup. Denies any shortness of breath.
Workup in the ED revealed profound anemia and CT angio showed spontaneous L renal hemorrhage
Eliquis was held and Kcentra given for reversal
Blood transfusion limited by presence of antibodies
Hypotensive and did not respond to fluids alone so pressors were started
IR and urology consulted for possible procedural intervention
Past Medical History
Past Medical History: Other (as above)
Past Surgical History: None and Other (as above)
Social History
Tobacco: Non-smoker
Alcohol: None
Drug: None
Family History
Family History: Reviewed & Not Pertinent
Allergies/Home Medications
Allergies
Allergy/AdvReac Type Severity Reaction Status Date / Time
coconut Allergy vomits Verified 08/06/23 15:01
pregabalin [From Lyrica] Allergy Tongue Verified 08/06/23 15:01
Swelling
atorvastatin AdvReac MUSCLE Verified 08/06/23 16:41
CRAMPS
Cephalosporins AdvReac kidney Verified 08/06/23 16:41
disease
penicillin V AdvReac Vomiting Verified 08/06/23 16:41
simvastatin AdvReac muscle Verified 08/06/23 16:41
cramps
Home Medications
�Medication �Instructions �Recorded �Confirmed �Type
lamotrigine 100 mg tablet 100 mg PO BID Neurological 07/24/19 08/06/23 History
Condition
ezetimibe 10 mg tablet 10 mg PO HS High cholesterol 08/26/19 08/06/23 History
rosuvastatin 10 mg tablet 10 mg PO DAILY High cholesterol 08/26/19 08/06/23 History
aspirin 81 mg tablet,delayed 81 mg PO DAILY Blood clot 08/27/19 08/06/23 History
release prevention/tx
allopurinol 100 mg tablet 100 mg PO DAILY Gout 06/15/20 08/06/23 History
gabapentin 100 mg capsule 100 mg PO TID Pain 09/26/21 08/06/23 History
(Neurontin)
isosorbide mononitrate 30 mg 30 mg PO BID HEART CONDITION 09/26/21 08/06/23 History
tablet,extended release 24 hr
montelukast 10 mg tablet 10 mg PO UD bone pain prevention 09/26/21 08/06/23 History
(Singulair)
acyclovir 400 mg tablet 400 mg PO BID Infection 01/03/23 08/06/23 History
dexamethasone 4 mg tablet 4 mg PO UD Anti-Inflammatory 01/03/23 08/06/23 History
apixaban 5 mg tablet (Eliquis) 5 mg PO BID Blood Clot 04/20/23 08/06/23 History
Prevention/Tx
daratumumab 20 mg/mL intravenous 1,800 mg IV QMONTH Cancer 04/20/23 08/06/23 History
solution (Darzalex)
venetoclax 100 mg tablet 200 mg PO DAILY Cancer 04/20/23 08/06/23 History
(Venclexta)
potassium chloride 20 mEq 20 meq PO DAILY Electrolyte 06/14/23 08/06/23 History
tablet,extended release Repletion
amiodarone 200 mg tablet 200 mg PO DAILY Arrhythmia 07/17/23 08/06/23 History
furosemide 80 mg tablet (Lasix) 120 mg PO BID Fluid 07/17/23 08/01/23 History
Retention/Swelling
hydralazine 25 mg tablet 25 mg PO QID Blood Pressure 07/17/23 08/01/23 History
metolazone 5 mg tablet 5 mg PO MOWEFR Fluid 08/06/23 08/06/23 History
Retention/Swelling
risperidone 0.25 mg tablet 0.25 mg PO HS Mental Health/Anxiety 08/06/23 08/06/23 History
Physical Exam
Vital Signs
Vital Signs
Temp Pulse Resp BP Pulse Ox
97.8 F 54 21 90/37 98
08/06/23 16:43 08/06/23 16:50 08/06/23 16:50 08/06/23 16:50 08/06/23 16:50
Lab / Testing Results
Laboratory Results
08/06/23 14:54
08/06/23 14:54
Physical Exam
General: Well Developed, Well Nourished and Other (pale, diaphoretic)
Respiratory: Clear
GI: Soft and Non Distended
Genito-urinary: Costovertebral Angle Tend
Neuro: AO x 3
Psych: Calm and Intact Judgement
Assessment / Plan
-
72M with afib, CAD on Eliquis with hemorrhagic shock, spontaneous left renal hemorrhage
- s/p Kcentra for reversal of anticoagulation. Hold all blood thinners
- Per blood bank, unable to crossmatch blood without testing >1week - 2 units uncrossed blood being given due to acute need
- Given possibility of transfusion reaction, recommend early intervention - discussed with IR. Given severe renal artery stenosis there is little chance for successful selective embolization. IR to attempt renal artery access now.
- Admit to ICU for monitoring post procedure
- Repeat HGB after transfusion of first 2 units
- If not responding to transfusions and patient remains in hemorrhagic shock, would proceed to open nephrectomy. At this point any open operation would have extremely high mortality
Data Reviewed
-
CT Scan: Image personally visualized and interpreted
Lab Data: Labs Reviewed
--- NOTE | 2023-08-06 18:37 | W.PN.UPDATE ---
Update Note
Progress Note Update
Arteriogram performed. Very difficult to access left renal artery due to vessel atherosclerosis and tortuosity. There was a large arterial active bleed in the lower pole of the kidney, which we were able to embolize using coils and gelfoam. Slow to
form clot within the coil due to Eliquis, but should occlude the vessel as the KCentra takes effect.
Arteriogram showed many microaneuryms of the left kidney, he may have vasculitis which predisposed to spontaneous hemorrhage.
Bedrest for 5 hours.
--- NOTE | 2023-08-06 18:54 | W.PN.UPDATE ---
Update Note
Progress Note Update
iR able to successfully embolize arterial bleed from accessory renal artery
BP in 100s systolic with pressor requirement
2nd unit of blood completing transfusion
Repeat HGB 2 hours
ICU for monitoring and serial HGB
--- NOTE | 2023-08-06 19:00 | PTCARENOTE ---
Patient received from IR, AAOx3, complaining of left flank pain. Sinus Bradycardia on monitor, unable to obtain oral temp, placed on bakari hugger. +1 edema to bilateral lower extremities. Knee high SCDs placed on patient. Lungs clear, pulse ox
100% on 2L. Abdomen soft, with hypoactive bowel sounds. Right groin dressing clean dry and intact. PIVs x3 flushed and patent. Plan of care discussed
[2023-08-06] MEDS: KCL 270 MEQ IV (19:09)
[2023-08-06] MEDS: DILAUDID 0.5 MG IV ×2 (19:58→23:53)
[2023-08-06 20:00] LABS: Hematocrit 24.2 % (39.0-52.0); Mean Corp Hgb Conc. 34.7 g/dL (33.0-37.0); Mean Corpuscular Hgb 31.1 pg (27.0-31.0); Mean Corpuscular Volume 89.6 fL (80.0-94.0); Mean Platelet Volume 9.9 fL (7.4-10.4); Platelet Count 197 10^3/uL (130-400); Red Cell Dist. Width 16.2 % (11.5-14.5); Venous Blood Gas B.E. -1.5 mmol/L (-4 to +4); Venous Blood Gas HCO3 25.1 mmol/L (22-27); Venous Blood Gas O2 Sat % 92.2 %; Venous Blood Gas pCO2 51 mmHg (35-48); Venous Blood Gas pO2 60 mmHg (30-50); White Blood Cell Count 13.5 10^3/uL (4.8-10.8)
[2023-08-06] MEDS: TIGAN 200 MG IM (20:05)
[2023-08-06 20:10] LABS: Hemoglobin 8.4 g/dL (13.0-18.0)
[2023-08-06 20:25] LABS: ALT (SGPT) 14 U/L (0-50); AST (SGOT) 26 U/L (17-59); Albumin 2.6 g/dl (3.5-5.0); Alkaline Phosphatase 80 U/L (38-126); Blood Urea Nitrogen 41 mg/dl (9-20); Calcium 7.8 mg/dl (8.4-10.2); Carbon Dioxide 23 mmol/L (22-30); Chloride 101 mmol/L (98-107); Estimated Creatinine Clearance 27 ml/min; Glucose 159 mg/dl (70-99); Magnesium 2.1 mg/dl (1.6-2.3); Potassium 3.7 mmol/L (3.5-5.1); Sodium 134 mmol/L (135-145); Total Bilirubin 1.1 mg/dl (0.2-1.3); Total Protein 4.3 g/dl (6.3-8.2); eGFR 26.47
[2023-08-06 20:33] LABS: INR 1.96; PT 22.1 Sec (11.4-14.6)
[2023-08-06] MEDS: LR 1000 IV (20:43)
[2023-08-06] MEDS: CALCIUM GLUCONATE 130 MG IV (21:02)
[2023-08-06 21:06] LABS: Fibrinogen 265 MG/DL (199-459)
[2023-08-06] MEDS: ZOVIRAX 400 MG PO (22:50)
[2023-08-06] MEDS: ZETIA 10 MG PO (22:50)
[2023-08-06] MEDS: LAMICTAL 100 MG PO (22:50)
[2023-08-06] MEDS: NEURONTIN 100 MG PO (22:50)
[2023-08-06 23:55] LABS: Hemoglobin 8.3 g/dL (13.0-18.0)
[2023-08-07] VITALS (69 sets, daily range): BP systolic 79–145; BP diastolic 38–75; BMI 27.2
--- NOTE | 2023-08-07 00:02 | PTCARENOTE ---
Patient normothermic, bakari hugger turned off, Levophed gtt increased to 14 mcg/min. H&H sent, CHG bath given, repositioned in bed. Call angelo within reach
[2023-08-07] MEDS: LEVOPHED 250 IV ×4 (01:25→13:46)
[2023-08-07] MEDS: DILAUDID 0.5 MG IV ×4 (04:28→19:55)
[2023-08-07 04:31] LABS: % Basophils 0.2 % (0-2); % Immature Granulocytes 0.4 % (0-0.5); % Lymphocytes 4.2 % (20.5-51.1); % Monocytes 13.3 % (1.7-9.3); % Neutrophils 81.9 % (42.2-75.2); Absolute Immature Granulocytes 0.1 10^3/uL (0-0.05); Absolute Lymphocytes 0.6 10^3/uL (1.2-3.4); Absolute Monocytes 1.8 10^3/uL (0.1-0.6); Hematocrit 23.9 % (39.0-52.0); Mean Corp Hgb Conc. 33.5 g/dL (33.0-37.0); Mean Corpuscular Volume 92.6 fL (80.0-94.0); Mean Platelet Volume 10.4 fL (7.4-10.4); Nucleated Red Blood Cells % 0.2 % (-); Platelet Count 218 10^3/uL (130-400); Red Blood Cell Count 2.58 10^6/uL (4.70-6.10); Red Cell Dist. Width 16.7 % (11.5-14.5); White Blood Cell Count 13.4 10^3/uL (4.8-10.8)
--- NOTE | 2023-08-07 04:39 | PTCARENOTE ---
Patient encouraged to void, voided small amount of urine. Bladder scan for PVR 0ml, Labs sent, medicated for pain per MAR
[2023-08-07 05:04] LABS: ALT (SGPT) 29 U/L (0-50); AST (SGOT) 57 U/L (17-59); Albumin 2.7 g/dl (3.5-5.0); Alkaline Phosphatase 79 U/L (38-126); Blood Urea Nitrogen 43 mg/dl (9-20); Calcium 8.3 mg/dl (8.4-10.2); Carbon Dioxide 23 mmol/L (22-30); Chloride 100 mmol/L (98-107); Estimated Creatinine Clearance 22 ml/min; Glucose 137 mg/dl (70-99); Sodium 135 mmol/L (135-145); Total Bilirubin 0.6 mg/dl (0.2-1.3); Total Protein 4.6 g/dl (6.3-8.2); eGFR 20.44
--- NOTE | 2023-08-07 07:14 | W.PN.INTV ---
Today's Communication / Plan
Recommendations
Doing well post embolization, hb stable in 8 range, repeat H&H this afternoon
Advance diet
Heme and renal consult for possible underlying vasculitis vs complication of known malignancy
Weaning off of pressors
ROM/OOB as tolerated
Pain control, add on PO regiment
Resume home meds
Family at bedside, updated all
Assessment
-
72 year old M with history of MM, amyloid, CHF presenting this AM with acute on set SOB and presyncope. Then developed acute onset L sided flank pain 11/26. He recently underwent cardioversion for Afib 07/17/23, placed on lasix for fluid retention.
In ER, notably pale. CBC showing anemia, Hb 6.1 (last Hb 9.4 on 08/01/23). INR 2.51. CT AP showing acute retroperitoneal hematoma likely from L kidney. On Eliquis for AFib. Of note, proBNP 11,200 on admission, he is hypotensive presumably from
volume loss and placed on levophed.
Acute hypovolemic shock on pressors
Acute L sided retroperitoneal hemorrhage
L renal hemorrhage s/p IR coil embolization 08/06/23
Acute coagulopathy
Acute HFpEF exacerbation
Acute blood loss anemia
Conditions present PUMPER HAND
Coronary artery disease s/p Cardiac stents x 2010
Atrial fibrillation s/p CV
Stage 3b chronic kidney disease
HTN
Chronic HF pEF
HLD
COPD --moderate obstruction PFT 2020/moderately severe restriction/moderate diffusion impairment
Pleural effusion s/p L thora 04/16/23 and 04/05/23- 1200mL and 1000mL of yellow pleural fluid.
Left knee torn meniscus s/p arthroscopic repair 2000
Torn rotator cuff x 3 97, 98, 2000
Hernia repair
B/l knees replaced 2010 with revisions 2012
MM Follows with Dr Crocker on Darzalex for treatment
Former smoker, 30+ pack years
Plan
No current signs of metabolic encephalopathy or MS changes/following commands
Pain/sedation: PRN Tylenol, IV Dilaudid, add on PO regiment
RASS goals: 0
Hemodynamically unstable, requiring pressors.
Requiring pressors: levophed initiated--weaning down
Cardiac history reviewed--HTN, HFpEF, Afib s/p CV, on lasix at home
On Eliquis--hold
Prior ECHO reviewed indicating reduced EF in past
Hold home meds while hypotensive
May need repeat ECHO
Oxygen needs: supplemental O2
Prior history of lung disease: none per patient, former smoker
PFT from 2020 suggesting COPD
History of pleural effusions s/p thora x 2 of transudative fluid
Supplemental O2 as indicated to maintain sats > 89%
CXR/CT reviewed indicating pleural effusions
CT CAP showing acute intraab bleed
Advance diet today
Bun Icer recommendations
Aspiration precautions, HOB > 30 degrees
Speech therapy eval can be considered if at elevated risk
GI prophylaxis if indicated for mechanical ventilation >48 hours, prior history of GERD, stress ulcer formation in the critically ill
CKD stage III -- creat at baseline, mid 2s
OLIVIA now, creat >3
Can consider renal consult, also possible vasculitis as cause for hemorrhage noted
Void trials
Follow urine output, critical I/Os
Replete electrolytes as needed
Not on abx, no fever
Pressors weaning down
Follow fever trend, WBC count
Continue to observe off abx for now
MM history, known to [place]
Heme consult
CBC reviewed, acute anemia from intra-abd bleeding
INR at 2 w/ coagulopathy.
DVT prophylaxis as assessed based on risk, including mechanical SCDs
Can transfuse if indicated for Hb <7, plt < 10--transfusion based on antibody screening
K centra ordered
Hold home MM meds, resume chronic PO steroids when able
No prior h/o diabetes or thyroid disease
Diagnostic Data
Chest X-Ray: 08/06/23- Low lung volumes with small left pleural effusion and left basilar atelectasis.
08/01/23- Bilateral small pleural effusions and adjacent atelectasis, left greater than right. Unchanged on the left and slightly improved on the right as compared with prior.
CT Scan:
Echo: 04/23/23- Moderate concentric left ventricular hypertrophy. Mildly reduced left ventricular systolic function. Left ventricular ejection fraction is 46%, by Zavala' s method. GLS Endo peak avg.= -6.4 %. Normal right ventricular size and
function. Right ventricular hypertrophy. No significant valvular disease. Compared to previous echo 01/09/23, the ejection fraction had decreased from normal to mildly decreased. Once again GLS and e' are decreased.
PFT's: 05/18/20: FEV1 1.74L 52%, FVC 2.58L 57%, ratio 68 post FEV1 1.79L 54%. TLC 4.25L 58%, DLCO 50%
Reports and relevant images were personally reviewed.
-----
Critical care time 40 mins -- this includes review of history, physical exam, medications, hemodynamic/ventilator parameters, laboratory data, imaging and discussion with house staff, pharmacy, respiratory therapy, tilting head band sawyer, and nursing.
Subjective Dataa
Subjective Data
Date of Service:
Date of Service: August 07, 2023
Chief Complaint: Epic Interface Analyst Follow Up
Subjective:
no events ON, successful embolization by IR
hb stable in 8 range
levophed requirements are declining
pain improving
Objective Data
Data Reviewed
Vital Signs / I&O / Oxygen:
Vital Signs
Temp Pulse Resp BP Pulse Ox
97.6 F 70 22 117/61 100
08/07/23 02:48 08/07/23 06:30 08/07/23 06:30 08/07/23 06:30 08/07/23 05:45
Intake and Output
08/06/23 08/07/23 08/08/23
06:59 06:59 06:59
Intake Total 1747.5 / 1747.5
Output Total 50 / 50
Balance 1697.5 / 1697.5
SaO2 100
Nasal Cannula flow liters per 2
minute
Physical Exam
General: Comfortable, Pain and Other (NAD)
HEENT: Normocephalic, Anicteric and Moist Mucous Membranes
Cardiovascular: S1-S2, Regular Rhythm and Other (PORT in R chest)
Respiratory: Clear and Non-Labored Respirations
GI: Soft, Non Distended, Tender and Other (decreased BS)
Neurology: Awake, Alert, Oriented, AO x 3 and No Motor Deficits
Skin: Warm and Dry
Labs/Micro/Reports
Lab Data
08/07/23 04:14
08/07/23 04:14
Laboratory Results
08/06/23 08/06/23
14:54 19:52
PT 27.0 H 22.1 H
INR 2.51 1.96
APTT 32.9
[2023-08-07] MEDS: PACERONE 200 MG PO (07:56)
[2023-08-07] MEDS: ZYLOPRIM 100 MG PO (07:57)
[2023-08-07] MEDS: ZOVIRAX 400 MG PO ×2 (07:57→19:54)
[2023-08-07] MEDS: NEURONTIN 100 MG PO ×3 (07:57→22:03)
[2023-08-07] MEDS: LAMICTAL 100 MG PO ×2 (07:57→19:54)
[2023-08-07] MEDS: CRESTOR 10 MG PO (07:57)
--- NOTE | 2023-08-07 08:01 | W.PN.GENERIC ---
Assessment / Plan
-
75 yo male with PMHx most notably for paroxysmal A-Fib on Eliquis, CKD 3, multiple myeloma, and anemia who started with sudden onset of atraumatic left flank pain around 11 am yesterday. He was found to have anemia (hgb 6.1) and spontaneous renal
bleed. He underwent renal artery embo in IR yesterday.
Continue to trend H&H
I spent 35 minutes counseling and coordination of care with the patient, reviewing the history, physical exam and imaging
Physician Progress Note
Subjective
72 yo male with PMHx of CAD s/p stents, HFrEF, paroxysmal A-Fib on Eliquis, CKD 3, multiple myeloma, amyloidosis, HTN, HLD and anemia who started with sudden onset of atraumatic left flank pain around 11 am yesterday. The pain progressed throughou
the day. He came to the ER yesterday and was found to have significant anemia and a spontaneous renal bleed. He underwent Renal artery embolization in IR yesterday. He still has some abdominal and flank pain but is overall feeling better.
Objective
Vital Signs
Temp Pulse Resp BP Pulse Ox
97.6 F 70 22 117/61 100
08/07/23 02:48 08/07/23 06:30 08/07/23 06:30 08/07/23 06:30 08/07/23 05:45
Lab Results
08/07/23 04:14
08/07/23 04:14
This is a WN/WD 75 yo male lying in bed. Color is good. Skin warm and dry. Heart is regular. Lungs are CTA. Abdomen is soft round and mildly tender with BS present. Left flank tenderness. Palpable inguinal and pedal pulses. No LE edema
--- NOTE | 2023-08-07 11:08 | W.PN.URO.CBU ---
Today's Communication / Plan
-
Serial HGB
Bedrest
Diet
Hold anticoagulation
Assessment / Plan
-
72M with afib, CAD on Eliquis with hemorrhagic shock, spontaneous left renal hemorrhage
s/p successful selective embolization of L renal artery branch by IR 08/05
- Trend serial HGB. HGB stable after transfusion of first 2 units. Transfuse as needed for any continued decline
- Maintain bedrest for 48 hours
- Okay to resume diet
- Trend renal function - likely to see some contrast induced OLIVIA as well as impact of partial L kidney embolization
- s/p Kcentra for reversal of anticoagulation
- Hold anticoagulation at least 14 days. Given the presence of multiple other small renal artery aneurysms seen on arteriogram, consideration should be given to permanently discontinuing AC for risk of recurrent life threatening bleed
Diagnosis
-
Date of Service: August 07, 2023
-
Patient Diagnosis:
Spontaneous retroperitoneal hemorrhage
Post Op Day: s/ IR selective coil embolization of accessory renal artery 08/05
Subjective
-
feeling well today, some L abdominal/flank pain
Objective
-
Vital Signs
Temp Pulse Resp BP Pulse Ox
98.3 F 68 17 104/49 99
08/07/23 07:15 08/07/23 09:15 08/07/23 09:15 08/07/23 09:00 08/07/23 09:15
Intake and Output
08/06/23 08/07/23 08/08/23
06:59 06:59 06:59
Intake Total 1747.5 / 1895.0 605.0 / 605.0
Output Total 50 / 50
Balance 1697.5 / 1845.0 605.0 / 605.0
Intake:
IV fluids (Total) 1347.5 / 1495.0 605.0 / 605.0
Levophed 637.5 / 705.0 285.0 / 285.0
Lr 1,000 ml @ 80 mls/hr IV . 710 / 790 320 / 320
[id number] GREGORY Rx#:[id number]
IV piggybacks 400 / 400
Blood Product Amount Infused ( 0 / 0
mL)
Packed Rbc Leukoreduced Unit 0 / 0
[id number]
Output:
Urine, Voided 50 / 50
Laboratory Results
08/07/23 04:14
08/07/23 04:14
Physical Exam
-
General - well developed, well nourished, no acute distress
Chest - clear resp
Abdomen - soft, mild L tenderness, non distended
Skin - warm & dry with no rash
Neuro - AOx3, no motor deficits
--- NOTE | 2023-08-07 11:15 | CM ---
CM following re: discharge planning.
Discussed in Rounds, reviewed pt' chart, met with pt.
Pt is a 72 year old male, admitted with primary dx of Hemorrhagic shock/acute blood loss anemia secondary to retroperitoneal hemorrhage from left kidney
Pt reports he lives alone in [place], 2 small steps to enter, has 2 supportive children and supportive ex-. 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 No DME, VN or SNF history. Pt expressed his desire to return back home at discharge
with family support and pt expressed no interest having after care VN services.
PCP: Bang Lambert
Pharmacy: [facility]
D/C plan: per pt request, home with family support. Family to transport at discharge.
CM will follow with discharge plan updates as hospitalization progresses
--- NOTE | 2023-08-07 11:18 | PTCARENOTE ---
Weaning Levophed as able. Pt reports continued flank pain with movement. PRN Dilaudid given. Pt requesting breakfast. NPO at this time. Has not voided yet this shift. All other assessments unchanged.
[2023-08-07] MEDS: LR IV (11:26)
[2023-08-07] MEDS: ROXICODONE 5 MG PO ×2 (11:30→22:03)
[2023-08-07] MEDS: TYLENOL 650 MG PO ×3 (11:30→19:54)
--- NOTE | 2023-08-07 11:44 | W.PN.HOSP.TC ---
Today's Communication/Plan
-
Trend H&H
Hold anticoagulation antiplatelets
Assessment / Plan
Assessment / Plan
General: Well Developed, Well Nourished and No Apparent Distress
HEENT: NormoCephalic, Moist mucous membranes and Atraumatic
Respiratory: Clear, R chest wall port noted
Cardiac: S1/S2 and Regular Rhythm; No Murmur or Rub
GI: Soft, Non Tender, Non Distended and Normal Bowel Sounds; No Organomegaly
Rectal: Deferred by Provider
Musculoskeletal: No Clubbing, No Cyanosis and No Edema
Skin: No Rash
Neuro: Nonfocal/grossly intact
#Hypovolemic/Hemorrhagic shock
#Acute blood loss anemia secondary to retroperitoneal hemorrhage
#Left renal artery extravasation status post embolization
-Status post 2 units of PRBC and hemoglobin 8. Repeat/trend hemoglobin
-2 units of blood, difficult to obtain further blood due to antibodies
-Hold aspirin, Eliquis
-Kcentra given to reverse Eliquis
-Hold Lasix, metolazone
-Hold antihypertensives
-Patient currently on Levophed and wean as blood pressure can tolerate
-Status post arteriogram with finding of large arterial active bleeding in the multiple left kidney status post embolization using coil and Gelfoam. Arteriogram showed many microaneurysm of the left kidney raising concern for vasculitis. ? Risk
factor due to multiple myeloma
-Discussed with urology
-d/w with icu.
-will ask Onc for input-Per oncology patient with amyloid angiopathy most likely etiology of active arterial bleeding
-Autoimmune workup started however seems likely secondary to amyloid angiopathy.
-May be at risk of transfusion reaction
OLIVIA on CKD 3B
-some degree of creatinine to be elevated with contrast exposure, active arterial bleeding, hypertension, embolization of renal artery
-Probnp elevated and on high dose diuretics
-Monitor urinary output
-s/p IVF. Cr bumped at 3.1
-Will ask nephro for input
# Hypokalemia
-Replete potassium
Paroxysmal atrial fibrillation
-Continue amiodarone
-Holding Eliquis in the setting of active arterial bleed admitted to be held for at least 2 weeks
CAD status post stents
-Hold aspirin
-Hold isosorbide mononitrate
Normal ischemic myocardial injury in the setting of CKD/CAD
-Troponin level chronically elevated
Chronic HFrEF
-Hold metolazone, Lasix
Essential hypertension
-Hold hydralazine
Hypercholesterolemia
-Continue statin
History of recurrent left pleural effusion
Amyloidosis
Multiple myeloma on immunotherapy-Patient on venclexta
-Patient on Darzalex, vencclexta
-Continue dexamethasone
-continue prophylactic acyclovir
Chemotherapy-induced neuropathy
-Continue gabapentin
Gout
-Continue allopurinol
Depression
-Continue Lamictal, risperidone
Full code
DVT prophylaxis�SCDs in setting of hemorrhagic shock
Discussed with urology
Discussed with training associate
Anticipated Discharge: > 48 hours
Subjective/Interval History
-
Date of Service: August 07, 2023
States of left-sided flank pain
Remains on Levophed
Objective Data
-
Labs:
Laboratory Results
08/06/23 08/07/23 08/07/23
23:51 04:14 14:00
WBC 13.4 H
Hgb 8.3 L 8.0 L Pending
Hct 24.0 L 23.9 L Pending
Plt Count 218
Sodium 135
Potassium 5.0 D
Chloride 100
Carbon Dioxide 23
BUN 43 H
Creatinine 3.1 H
Glucose 137 H
Calcium 8.3 L
Total Bilirubin 0.6
AST 57
ALT 29
Alkaline Phosphatase 79
08/07/23
22:00
WBC
Hgb Pending
Hct Pending
Plt Count
Sodium
Potassium
Chloride
Carbon Dioxide
BUN
Creatinine
Glucose
Calcium
Total Bilirubin
AST
ALT
Alkaline Phosphatase
Vital Signs:
Vital Signs
Temp Pulse Resp BP Pulse Ox
98.3 F 68 17 104/49 99
08/07/23 07:15 08/07/23 09:15 08/07/23 09:15 08/07/23 09:00 08/07/23 09:15
I&O
08/06/23 08/07/23 08/08/23
06:59 06:59 06:59
Intake Total 1747.5 / 1895.0 605.0 / 605.0
Output Total 50 / 50
Balance 1697.5 / 1845.0 605.0 / 605.0
Data Reviewed
-
Total Time Spent with Patient (in minutes): 55
--- NOTE | 2023-08-07 12:34 | CON.ONC ---
Impression
Impression
left renal artery hemorrhage, spontaneous
AL amyloidosis
pAfib on Eliquis
Plan
Plan
He may have amyloid deposition in vasculature (amyloid angiopathy), making him prone to bleeding due to vessel fragility
Would continue to monitor CBC
Risks of resuming Eliquis may outweigh benefits
Will follow along peripherally, outpatient f/u with Dr. Crocker
Patient History
History of Present Illness
72 yo M w/ AL amyloidosis, on venetoclax and daratumumab per Dr. Crocker, and pAFib on Eliquis, presented with laft abdominal and flank pain. Imaging showed retroperitoneal hemorrhage from left kidney. 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 KCentra was
given. He underwent arteriogram in IR, showing a tortuous and atherosclerotic renal artery, and active arterial bleeding in the lower pole of the kidney, treated with coil embolization.
He was transfused prbcs, and hgb has been stable.
Past-Medical/Surgical History
PMH/PSH - AL amyloidosis, CAD, CHF, depression, HTN, CKD, bilateral TKR
SH - , former smoker
FH - N/C
Patient Medication
�Medication �Instructions �Recorded �Confirmed �Last Taken �Type
lamotrigine 100 mg tablet 100 mg PO BID Neurological 07/24/19 08/06/23 08/01/23 History
Condition
ezetimibe 10 mg tablet 10 mg PO HS High cholesterol 08/26/19 08/06/23 07/31/23 History
rosuvastatin 10 mg tablet 10 mg PO DAILY High cholesterol 08/26/19 08/06/23 08/01/23 History
aspirin 81 mg tablet,delayed 81 mg PO DAILY Blood clot 08/27/19 08/06/23 08/01/23 History
release prevention/tx
allopurinol 100 mg tablet 100 mg PO DAILY Gout 06/15/20 08/06/23 08/01/23 History
gabapentin 100 mg capsule 100 mg PO TID Pain 09/26/21 08/06/23 08/01/23 History
(Neurontin)
isosorbide mononitrate 30 mg 30 mg PO BID HEART CONDITION 09/26/21 08/06/23 08/01/23 History
tablet,extended release 24 hr
montelukast 10 mg tablet 10 mg PO UD bone pain prevention 09/26/21 08/06/23 07/02/23 History
(Singulair)
acyclovir 400 mg tablet 400 mg PO BID Infection 01/03/23 08/06/23 08/01/23 History
dexamethasone 4 mg tablet 4 mg PO UD Anti-Inflammatory 01/03/23 08/06/23 07/03/23 History
apixaban 5 mg tablet (Eliquis) 5 mg PO BID Blood Clot 04/20/23 08/06/23 08/01/23 History
Prevention/Tx
daratumumab 20 mg/mL intravenous 1,800 mg IV QMONTH Cancer 04/20/23 08/06/23 07/01/23 History
solution (Darzalex)
venetoclax 100 mg tablet 200 mg PO DAILY Cancer 04/20/23 08/06/23 08/01/23 History
(Venclexta)
potassium chloride 20 mEq 20 meq PO DAILY Electrolyte 06/14/23 08/06/23 08/01/23 History
tablet,extended release Repletion
amiodarone 200 mg tablet 200 mg PO DAILY Arrhythmia 07/17/23 08/06/23 08/01/23 History
furosemide 80 mg tablet (Lasix) 120 mg PO BID Fluid 07/17/23 08/01/23 08/01/23 History
Retention/Swelling
hydralazine 25 mg tablet 25 mg PO QID Blood Pressure 07/17/23 08/01/23 08/01/23 History
metolazone 5 mg tablet 5 mg PO MOWEFR Fluid 08/06/23 08/06/23 Unknown History
Retention/Swelling
risperidone 0.25 mg tablet 0.25 mg PO HS Mental Health/Anxiety 08/06/23 08/06/23 Unknown History
Active Medications
Generic Name Dose Route Start Last Admin
Trade Name Freq PRN Reason Stop Dose Admin
Acetaminophen 650 mg 08/07/23 12:00 08/07/23 11:30
Acetaminophen 325 Mg Tablet PO 09/04/23 11:59 650 mg
Q4HWA GREGORY Administration
Acyclovir Sodium 400 mg 08/06/23 20:00 08/07/23 07:57
Acyclovir Sodium 800 Mg Tablet PO 08/16/23 19:59 400 mg
BID GREGORY Administration
Allopurinol 100 mg 08/07/23 08:00 08/07/23 07:57
Allopurinol 100 Mg Tablet PO 09/04/23 07:59 100 mg
DAILY GREGORY Administration
Amiodarone HCl 200 mg 08/07/23 08:00 08/07/23 07:56
Amiodarone 200 Mg Tablet PO 09/04/23 07:59 200 mg
DAILY GREGORY Administration
Ezetimibe 10 mg 08/06/23 22:00 08/06/23 22:50
Ezetimibe (Zetia) 10 Mg Tablet PO 09/03/23 21:59 10 mg
HS GREGORY Administration
Gabapentin 100 mg 08/06/23 22:00 08/07/23 07:57
Gabapentin 100 Mg Capsule PO 09/03/23 21:59 100 mg
TID GREGORY Administration
Hydromorphone HCl 0.5 mg 08/07/23 11:17
Hydromorphone 0.5 Mg/0.5 Ml Syringe IV 08/21/23 11:16
Q4HPRN PRN
BREAKTHROUGH PAIN
Norepinephrine Bitartrate 4 mg in 250 mls @ 0 mls/hr 08/06/23 20:15 08/07/23 07:47
Levophed IV 250 mls
PER PROTOCOL GREGORY Administration
Protocol
Per Protocol
Lamotrigine 100 mg 08/06/23 20:00 08/07/23 07:57
Lamotrigine 100 Mg Tablet PO 09/03/23 19:59 100 mg
BID GREGORY Administration
Venetoclax [ 0 mg 08/07/23 08:00
Venclexta] 100 Mg PO 09/04/23 07:59
Tablet - 2 Tablets ( DAILY GREGORY
200mg) Po Daily
Oxycodone HCl 5 mg 08/07/23 11:16 08/07/23 11:30
Oxycodone 5 Mg Regular Release Tablet PO 08/21/23 11:15 5 mg
Q4HPRN PRN Administration
SEVERE PAIN
Oxycodone HCl 2.5 mg 08/07/23 11:17
Oxycodone 5 Mg Regular Release Tablet PO 08/21/23 11:16
Q4HPRN PRN
MODERATE PAIN
Risperidone 0.25 mg 08/06/23 22:00
Risperidone 0.25 Mg Tablet PO 09/03/23 21:59
HS GREGORY
Rosuvastatin Calcium 10 mg 08/07/23 08:00 08/07/23 07:57
Rosuvastatin (Crestor) 10 Mg Tablet PO 09/04/23 07:59 10 mg
DAILY GREGORY Administration
Sodium Chloride 0 flush 08/06/23 20:00
Sodium Chloride 0.9% (Flush) Syringe IV 09/03/23 19:59
PER PROTOCOL GREGORY
Trimethobenzamide HCl 200 mg 08/06/23 20:01 08/06/23 20:05
Trimethobenzamide 200 Mg/2 Ml Vial IM 09/03/23 20:00 200 mg
Q6HPRN PRN Administration
nausea and vomiting
Physical Exam
-
General: Comfortable; Negative Appears in Distress
HEENT: Negative Jaundice
Neurology: Non Focal
Labs
Lab Results
WBC 13.4 10^3/uL (4.8-10.8) H 08/07/23 04:14
RBC 2.58 10^6/uL (4.70-6.10) L 08/07/23 04:14
Hgb 8.0 g/dL (13.0-18.0) L 08/07/23 04:14
Hct 23.9 % (39.0-52.0) L 08/07/23 04:14
MCV 92.6 fL (80.0-94.0) 08/07/23 04:14
MCH 31.0 pg (27.0-31.0) 08/07/23 04:14
MCHC 33.5 g/dL (33.0-37.0) 08/07/23 04:14
RDW 16.7 % (11.5-14.5) H 08/07/23 04:14
Plt Count 218 10^3/uL (130-400) 08/07/23 04:14
MPV 10.4 fL (7.4-10.4) 08/07/23 04:14
Abs Immat Gran (auto) 0.1 10^3/uL (0-0.05) H 08/07/23 04:14
Absolute Neuts (auto) 11.0 10^3/uL (1.4-6.5) H 08/07/23 04:14
Absolute Lymphs (auto) 0.6 10^3/uL (1.2-3.4) L 08/07/23 04:14
Absolute Monos (auto) 1.8 10^3/uL (0.1-0.6) H 08/07/23 04:14
Absolute Eos (auto) 0.0 10^3/uL (0-0.7) 08/07/23 04:14
Absolute Basos (auto) 0.0 10^3/uL (0-0.2) 08/07/23 04:14
Immature Gran % 0.4 % (0-0.5) 08/07/23 04:14
Neutrophils % 81.9 % (42.2-75.2) H 08/07/23 04:14
Lymphocytes % 4.2 % (20.5-51.1) L 08/07/23 04:14
Monocytes % 13.3 % (1.7-9.3) H 08/07/23 04:14
Eosinophils % 0.0 % (0-6) 08/07/23 04:14
Basophils % 0.2 % (0-2) 08/07/23 04:14
Creatinine 3.1 mg/dL (0.7-1.3) H 08/07/23 04:14
Vital Signs
Vital Signs
Temp Pulse Resp BP Pulse Ox
98.7 F 68 17 104/49 99
08/07/23 11:53 08/07/23 09:15 08/07/23 09:15 08/07/23 09:00 08/07/23 09:15
[2023-08-07 14:08] LABS: Hematocrit 20.3 % (39.0-52.0); Hemoglobin 6.9 g/dL (13.0-18.0)
--- NOTE | 2023-08-07 14:18 | W.CON.NEPH ---
Consultation
-
Date/Time Consultation Requested: August 07, 2023 12 noon
Date/Time Consultation Performed: August 07, 2023 2 PM
Requesting Provider: Dr Garcia
Performing Provider: Dr. Perdue
Reason for Consultation: OLIVIA
Medical History
-
Chief Complaint: OLIVIA
History of Present Illness:
72-year-old male with CAD status post cardiac stents on ASA, paroxysmal atrial fibrillation on Eliquis, heart failure with preserved ejection fraction on lasix, HTN on hydralazine, hypercholesterolemia, CKD Stage 4 baseline cr 1.8-2.[address]
Rafat in [place], [place] amyloidosis and multiple myeloma on chemo with Dr Crocker (venetoclax and daratumumab, previously CyBorD) who presented to the emergency room because of acute onset left flank pain. He called EMS and they brought him to the emergency
room. Here on imaging studies he was noted to have a very large left perinephric and retroperitoneal hemorrhage with displacement of the spleen as well as the left psoas.� His hemoglobin was as low as 6.1. He was taken to interventional radiology
for embolization of a inferior left renal artery which stopped the bleeding. He was hypotensive and was started on pressor therapy and taken to the ICU where he is currently critically ill. His creatinine, at 2.4 on admission has now risen up to
3.1. He had mild hypokalemia but his potassium is now 5.0. His urine output has decreased.
Past Medical History
CAD status post cardiac stents, paroxysmal atrial fibrillation, Second-degree AV block, Mobitz type 1, heart failure with preserved ejection fraction, HTN, Hypercholesterolemia, [place], CKD Stage 4, recurrent left pleural effusion, [place] amyloidosis and
multiple myeloma
Social History
Tobacco: Former Smoker
Alcohol: Occasional
Family History
no CKD
Family History: Not Pertinent
Allergies / Home Medications
Allergy/AdvReac Type Severity Reaction Status Date / Time
coconut Allergy vomits Verified 08/06/23 15:01
pregabalin [From Lyrica] Allergy Tongue Verified 08/06/23 15:01
Swelling
atorvastatin AdvReac MUSCLE Verified 08/06/23 16:41
CRAMPS
Cephalosporins AdvReac kidney Verified 08/06/23 16:41
disease
penicillin V AdvReac Vomiting Verified 08/06/23 16:41
simvastatin AdvReac muscle Verified 08/06/23 16:41
cramps
�Medication �Instructions �Recorded �Confirmed �Type
lamotrigine 100 mg tablet 100 mg PO BID Neurological 07/24/19 08/06/23 History
Condition
ezetimibe 10 mg tablet 10 mg PO HS High cholesterol 08/26/19 08/06/23 History
rosuvastatin 10 mg tablet 10 mg PO DAILY High cholesterol 08/26/19 08/06/23 History
aspirin 81 mg tablet,delayed 81 mg PO DAILY Blood clot 08/27/19 08/06/23 History
release prevention/tx
allopurinol 100 mg tablet 100 mg PO DAILY Gout 06/15/20 08/06/23 History
gabapentin 100 mg capsule 100 mg PO TID Pain 09/26/21 08/06/23 History
(Neurontin)
isosorbide mononitrate 30 mg 30 mg PO BID HEART CONDITION 09/26/21 08/06/23 History
tablet,extended release 24 hr
montelukast 10 mg tablet 10 mg PO UD bone pain prevention 09/26/21 08/06/23 History
(Singulair)
acyclovir 400 mg tablet 400 mg PO BID Infection 01/03/23 08/06/23 History
dexamethasone 4 mg tablet 4 mg PO UD Anti-Inflammatory 01/03/23 08/06/23 History
apixaban 5 mg tablet (Eliquis) 5 mg PO BID Blood Clot 04/20/23 08/06/23 History
Prevention/Tx
daratumumab 20 mg/mL intravenous 1,800 mg IV QMONTH Cancer 04/20/23 08/06/23 History
solution (Darzalex)
venetoclax 100 mg tablet 200 mg PO DAILY Cancer 04/20/23 08/06/23 History
(Venclexta)
potassium chloride 20 mEq 20 meq PO DAILY Electrolyte 06/14/23 08/06/23 History
tablet,extended release Repletion
amiodarone 200 mg tablet 200 mg PO DAILY Arrhythmia 07/17/23 08/06/23 History
furosemide 80 mg tablet (Lasix) 120 mg PO BID Fluid 07/17/23 08/01/23 History
Retention/Swelling
hydralazine 25 mg tablet 25 mg PO QID Blood Pressure 07/17/23 08/01/23 History
metolazone 5 mg tablet 5 mg PO MOWEFR Fluid 08/06/23 08/06/23 History
Retention/Swelling
risperidone 0.25 mg tablet 0.25 mg PO HS Mental Health/Anxiety 08/06/23 08/06/23 History
Review of Systems
-
Left-sided abdominal pain as well as lower bilateral abdominal pain. Decreased urine output. No shortness of breath or chest pain.
All other systems: Negative unless noted
Physical Exam
Vital Signs
Vital Signs
Temp Pulse Resp BP Pulse Ox
98.7 F 68 17 104/49 99
08/07/23 11:53 08/07/23 09:15 08/07/23 09:15 08/07/23 09:00 08/07/23 09:15
Lab Results
WBC 13.4 10^3/uL (4.8-10.8) H 08/07/23 04:14
RBC 2.58 10^6/uL (4.70-6.10) L 08/07/23 04:14
Plt Count 218 10^3/uL (130-400) 08/07/23 04:14
Sodium 135 mmol/L (135-145) 08/07/23 04:14
Potassium 5.0 mmol/L (3.5-5.1) D 08/07/23 04:14
Chloride 100 mmol/L (98-107) 08/07/23 04:14
Carbon Dioxide 23 mmol/L (22-30) 08/07/23 04:14
BUN 43 mg/dl (9-20) H 08/07/23 04:14
Creatinine 3.1 mg/dL (0.7-1.3) H 08/07/23 04:14
eGFR 20.44 08/07/23 04:14
Glucose 137 mg/dl (70-99) H 08/07/23 04:14
Calcium 8.3 mg/dl (8.4-10.2) L 08/07/23 04:14
Phosphorus 5.0 mg/dl (2.5-4.5) H 08/06/23 19:52
Hax-V-Tpjvdgncjqs Pept 19758 pg/ml 08/06/23 14:54
Albumin 2.7 g/dl (3.5-5.0) L 08/07/23 04:14
Physical Exam
Patient is awake alert oriented and in no distress. Mood and affect were pleasant, insight and judgment were good. Pupils are equal round and reactive to light, extraocular movements are intact, sclera were anicteric. Hearing was normal, ears and
nose are intact. Oropharynx was clear. Neck was supple with trachea midline and no thyromegaly. Heart was regular rate and rhythm without rubs. Lower extremities without edema. Lungs were clear to auscultation bilaterally and with normal
excursion. Abdomen was soft, nontender, with normal active bowel sounds, and no hepatosplenomegaly. Skin was without rash and with normal turgor.
Data Reviewed
-
Radiology: Image Personally Visualized and interpreted (Chest x-ray on August 06, 2023 shows lower lung volumes left-sided atelectasis by my reading)
CT Scan: Report Reviewed by me (CT chest abdomen pelvis with contrast on August 06, 2023 shows 50% celiac artery stenosis, moderate to severe right renal artery stenosis, left renal artery stenosis of the origin as well as inferior artery both at the
origin, left large perinephric hematoma, right sided hyper and hypodense cysts)
Labs: Labs Reviewed by me (Hemoglobin 8.0, platelets 218, INR 1.96, sodium 135, potassium 5, bicarb 23, creatinine 3.1, BUN 43, calcium 8.3, proBNP 11,200)
Old Records: Reviewed (On August 01, 2023 creatinine 2.7)
Assessment/Plan
-
IMP:
OLIVIA on CKD Stage 4 baseline cr 1.8-2.5
CAD with cardiac stents
Paroxysmal atrial fibrillation
Second-degree AV block Mobitz type 1
Heart failure with preserved ejection fraction
Hypotension
[place] Amyloidosis
Multiple Myeloma
Left inferior renal artery bleed status postembolization 08/06/2023
Plan:
Maintain mean arterial pressure greater than 65
No IV fluids required currently
Transfuse packed red blood cells as needed
Serial basic metabolic panel
Check serologies
Check urine when available
Off anticoagulation
He understands the possibility of requiring dialysis given the severity of the insult. He would except dialysis if needed. Currently there is no emergent need for dialysis today
Critical care time spent 45 minutes
--- NOTE | 2023-08-07 15:51 | PTCARENOTE ---
Pt states, 'I just don't feel well'.
Awaiting PRBC from blood bank. Levophed weaned to 4 mcg/min.
Bibasilar crackles noted posteriorly. IVF d/c'd per order.
Pt has not voided this shift. Bladder scan 76ml. notified.
All other assessments unchanged.
[2023-08-07 16:06] LABS: Lactic Acid 0.9 mmol/L (0.7-2.0)
[2023-08-07 16:14] LABS: Blood Urea Nitrogen 50 mg/dl (9-20); Carbon Dioxide 25 mmol/L (22-30); Chloride 99 mmol/L (98-107); Estimated Creatinine Clearance 20 ml/min; Glucose 117 mg/dl (70-99); Potassium 4.7 mmol/L (3.5-5.1); Sodium 132 mmol/L (135-145)
[2023-08-07] MEDS: ZETIA 10 MG PO (22:03)
[2023-08-07 22:31] LABS: Hematocrit 21.1 % (39.0-52.0); Hemoglobin 7.2 g/dL (13.0-18.0)
--- NOTE | 2023-08-07 23:50 | PTCARENOTE ---
PRBCs infused. Hgb up to 7.2, from 6.9. Unable to wean levophed, remains at 2mcg. Will monitor.
[2023-08-08] VITALS (45 sets, daily range): BP systolic 96–120; BP diastolic 43–77; PULSE 58; O2SAT 97; BMI 28.1
[2023-08-08] MEDS: TYLENOL PO ×2 (01:25→05:44)
--- NOTE | 2023-08-08 03:21 | PTCARENOTE ---
No change in previous assessment. After 1 unit PRBC, hgb 7.2. Additional unit currently infusing. No urine this shift. Bladder scan 123ml. Will monitor.
[2023-08-08 03:42] LABS: PT 18.8 Sec (11.4-14.6)
[2023-08-08 03:43] LABS: APTT 43.3 Sec (23.4-35.0)
[2023-08-08 04:22] LABS: Blood Urea Nitrogen 55 mg/dl (9-20); Calcium 7.9 mg/dl (8.4-10.2); Carbon Dioxide 25 mmol/L (22-30); Chloride 98 mmol/L (98-107); Estimated Creatinine Clearance 18 ml/min; Glucose 100 mg/dl (70-99); Potassium 4.4 mmol/L (3.5-5.1); Sodium 133 mmol/L (135-145); eGFR 16.01
[2023-08-08] MEDS: DILAUDID 0.5 MG IV (06:12)
--- NOTE | 2023-08-08 07:20 | W.PN.INTV ---
Today's Communication / Plan
Recommendations
Now off pressors, stable
Received 2 units pRBCs, repeat H&H ongoing--if still remains anemic, may need repeat imaging
OLIVIA worsening, renal following
PT/OT eval
Diet advanced/encouraged a little rehab today
Assessment
-
72 year old M with history of MM, amyloid, CHF presenting this AM with acute on set SOB and presyncope. Then developed acute onset L sided flank pain 11/26. He recently underwent cardioversion for Afib 07/17/23, placed on lasix for fluid retention.
In ER, notably pale. CBC showing anemia, Hb 6.1 (last Hb 9.4 on 08/01/23). INR 2.51. CT AP showing acute retroperitoneal hematoma likely from L kidney. On Eliquis for AFib. Of note, proBNP 11,200 on admission, he is hypotensive presumably from
volume loss and placed on levophed.
Acute hypovolemic shock on pressors
Acute L sided retroperitoneal hemorrhage
L renal hemorrhage s/p IR coil embolization 08/06/23
Acute coagulopathy
Acute HFpEF exacerbation
Acute blood loss anemia
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
Coronary artery disease s/p Cardiac stents x 4 2010
Atrial fibrillation s/p CV
Stage 3b chronic kidney disease
HTN
Chronic HF pEF
HLD
COPD --moderate obstruction PFT 2020/moderately severe restriction/moderate diffusion impairment
Pleural effusion s/p L thora 04/16/23 and 04/05/23- 1200mL and 1000mL of yellow pleural fluid.
Left knee torn meniscus s/p arthroscopic repair 2000
Torn rotator cuff x 3 97, , 2000
Hernia repair
B/l knees replaced 2010 with revisions 2012
MM Follows with Dr Crocker on Darzalex for treatment
Former smoker, 30+ pack years
Plan
No current signs of metabolic encephalopathy or MS changes/following commands
Pain/sedation: PRN Tylenol, IV Dilaudid, add on PO regiment
RASS goals: 0
Hemodynamically stable, levophed initiated--now weaned to off
Cardiac history reviewed--HTN, HFpEF, Afib s/p CV, on lasix at home
On Eliquis--hold
Prior ECHO reviewed indicating reduced EF in past
Hold home meds while hypotensive
May need repeat ECHO
Oxygen needs: supplemental O2
Prior history of lung disease: none per patient, former smoker
PFT from 2020 suggesting COPD
History of pleural effusions s/p thora x 2 of transudative fluid
Supplemental O2 as indicated to maintain sats > 89%
CXR/CT reviewed indicating pleural effusions
CT CAP showing acute intraab bleed
Advanced diet
Loan Officer Assistant recommendations
Aspiration precautions, HOB > 30 degrees
Speech therapy eval can be considered if at elevated risk
GI prophylaxis if indicated for mechanical ventilation >48 hours, prior history of GERD, stress ulcer formation in the critically ill
CKD stage III -- creat at baseline, mid 2s
OLIVIA now, creat >3
Can consider renal consult, also possible vasculitis as cause for hemorrhage noted
Void trials
Follow urine output, critical I/Os
Replete electrolytes as needed
Not on abx, no fever
Follow fever trend, WBC count
Continue to observe off abx for now
MM history, known to Clear
Heme consult
CBC reviewed, acute anemia from intra-abd bleeding
INR at 2 w/ coagulopathy
Received 2 units, if ongoing anemia is noted, may need repeat imaging
DVT prophylaxis as assessed based on risk, including mechanical SCDs
Can transfuse if indicated for Hb <7, plt < 10--transfusion based on antibody screening
Hold home MM meds, resume chronic PO steroids when able
No prior h/o diabetes or thyroid disease
Diagnostic Data
Chest X-Ray: 08/06/23- Low lung volumes with small left pleural effusion and left basilar atelectasis.
08/01/23- Bilateral small pleural effusions and adjacent atelectasis, left greater than right. Unchanged on the left and slightly improved on the right as compared with prior.
CT Scan:
Echo: 04/23/23- Moderate concentric left ventricular hypertrophy. Mildly reduced left ventricular systolic function. Left ventricular ejection fraction is 46%, by Zavala' s method. GLS Endo peak avg.= -6.4 %. Normal right ventricular size and
function. Right ventricular hypertrophy. No significant valvular disease. Compared to previous echo 01/09/23, the ejection fraction had decreased from normal to mildly decreased. Once again GLS and e' are decreased.
PFT's: 05/18/20: FEV1 1.74L 52%, FVC 2.58L 57%, ratio 68 post FEV1 1.79L 54%. TLC 4.25L 58%, DLCO 50%
Reports and relevant images were personally reviewed.
-----
Critical care time 35 mins -- this includes review of history, physical exam, medications, hemodynamic/ventilator parameters, laboratory data, imaging and discussion with house staff, pharmacy, respiratory therapy, still operator helper, and nursing.
Subjective Dataa
Subjective Data
Date of Service:
Date of Service: August 08, 2023
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
Subjective:
required 2 units overnight
off pressors
otherwise stable
no new complaints
Objective Data
Data Reviewed
Vital Signs / I&O / Oxygen:
Vital Signs
Temp Pulse Resp BP Pulse Ox
99.8 F 61 17 117/49 97
08/08/23 03:20 08/08/23 05:45 08/08/23 05:45 08/08/23 05:30 08/08/23 05:45
Intake and Output
08/07/23 08/08/23 08/09/23
06:59 06:59 06:59
Intake Total 1747.5 / 1895.0 939.5 / 939.5
Output Total 50 / 50
Balance 1697.5 / 1845.0 939.5 / 939.5
SaO2 97
Nasal Cannula flow liters per 2
minute
Physical Exam
General: Comfortable, Pain and Other (NAD)
HEENT: Normocephalic, Anicteric and Moist Mucous Membranes
Cardiovascular: S1-S2, Regular Rhythm and Other (PORT in R chest)
Respiratory: Clear and Non-Labored Respirations
GI: Soft, Non Distended, Tender and Other (decreased BS)
Neurology: Awake, Alert, Oriented, AO x 3 and No Motor Deficits
Skin: Warm and Dry
Labs/Micro/Reports
Lab Data
08/08/23 03:07
Laboratory Results
08/08/23
03:07
PT 18.8 H
INR 1.60
APTT 43.3 H
[2023-08-08] MEDS: TYLENOL 650 MG PO ×5 (07:46→23:26)
[2023-08-08] MEDS: NEURONTIN 100 MG PO ×3 (07:46→21:45)
[2023-08-08] MEDS: CRESTOR 10 MG PO (07:46)
[2023-08-08] MEDS: PACERONE 200 MG PO (07:46)
[2023-08-08] MEDS: ZYLOPRIM 100 MG PO (07:47)
[2023-08-08] MEDS: ZOVIRAX 400 MG PO (07:47)
[2023-08-08] MEDS: LAMICTAL 100 MG PO ×2 (07:47→20:04)
[2023-08-08 08:26] LABS: % Basophils 0.2 % (0-2); % Immature Granulocytes 0.4 % (0-0.5); % Lymphocytes 3.1 % (20.5-51.1); % Monocytes 12.7 % (1.7-9.3); % Neutrophils 83.6 % (42.2-75.2); Absolute Lymphocytes 0.3 10^3/uL (1.2-3.4); Absolute Monocytes 1.3 10^3/uL (0.1-0.6); Absolute Neutrophils 8.7 10^3/uL (1.4-6.5); Hematocrit 23.1 % (39.0-52.0); Hemoglobin 7.7 g/dL (13.0-18.0); Mean Corp Hgb Conc. 33.3 g/dL (33.0-37.0); Mean Corpuscular Hgb 29.3 pg (27.0-31.0); Mean Corpuscular Volume 87.8 fL (80.0-94.0); Mean Platelet Volume 9.8 fL (7.4-10.4); Nucleated Red Blood Cells % 0.2 % (-); Platelet Count 118 10^3/uL (130-400); Red Blood Cell Count 2.63 10^6/uL (4.70-6.10); Red Cell Dist. Width 18.6 % (11.5-14.5); White Blood Cell Count 10.4 10^3/uL (4.8-10.8)
--- NOTE | 2023-08-08 08:30 | PTCARENOTE ---
Received pt resting in bed, AOX3, left flank pain down to 3 after previous RN gave pain medication. SB on monitor in 50's with BBB and prolonged QT. +1 lower extremity edema. B/L pedal pulses palpable. B/L SCD's on. Lungs CTA. 95-100% on RA. Abdomen
soft, tender to palpate hypoactive bowel sounds. Left flank bruising that has been marked and remains the same. R SUB Q Port has KVO running through it. 2 INT's on R arm checked. L arm INT checked. Pt updated with plan of care. Will continue to
monitor
--- NOTE | 2023-08-08 08:47 | W.PN.URO.CBU ---
Today's Communication / Plan
-
Trend HGB, transfuse as needed
Hold anticoagulation
Assessment / Plan
-
72M with afib, CAD on Eliquis with hemorrhagic shock, spontaneous left renal hemorrhage
s/p successful selective embolization of L renal artery branch by IR 08/05
- Trend serial HGB. 2 units PRBCs given 08/06 with partial response. Transfusion as needed for any continued decline
- Maintain bedrest until HGB stable x24hrs
- Okay to continue diet
- Trend renal function - likely to see some contrast induced OLIVIA as well as impact of partial L kidney embolization
- s/p Kcentra for reversal of anticoagulation
- Hold anticoagulation at least 14 days. Given the presence of multiple other small renal artery aneurysms seen on arteriogram, consideration should be given to permanently discontinuing AC for risk of recurrent life threatening bleed
Diagnosis
-
Date of Service: August 08, 2023
-
Patient Diagnosis:
Post Op Day:
Patient Diagnosis:
Spontaneous retroperitoneal hemorrhage
Post Op Day: s/ IR selective coil embolization of accessory renal artery 08/05
Subjective
-
No new events or sx
Objective
-
Vital Signs
Temp Pulse Resp BP Pulse Ox
98.4 F 57 17 96/52 100
08/08/23 07:39 08/08/23 07:46 08/08/23 05:45 08/08/23 07:46 08/08/23 08:26
Intake and Output
08/07/23 08/08/23 08/09/23
06:59 06:59 06:59
Intake Total 1747.5 / 1895.0 939.5 / 939.5 60 / 60
Output Total 50 / 50
Balance 1697.5 / 1845.0 939.5 / 939.5 60 / 60
Intake:
Oral fluids 120 / 120 60 / 60
IV fluids (Total) 1347.5 / 1495.0 819.5 / 819.5
Levophed 637.5 / 705.0 499.5 / 499.5
Lr 1,000 ml @ 80 mls/hr IV . 710 / 790 320 / 320
[id number] [facility] Rx#:[id number]
IV piggybacks 400 / 400
Blood Product Amount Infused ( 0 / 0
mL)
Packed Rbc Leukoreduced Unit 0 / 0
[id number]
Output:
Urine, Voided 50 / 50
Laboratory Results
08/08/23 08:17
08/08/23 03:07
Physical Exam
-
General - well developed, well nourished, no acute distress
Chest - clear bilaterally
Abdomen - soft, mild tender
Skin - warm & dry with no rash
Neuro - AOx3, no motor deficits
Extremities - no clubbing, no cyanosis, no edema
--- NOTE | 2023-08-08 11:23 | W.PN.HOSP.TC ---
Today's Communication/Plan
-
trend h/h
trend cr
Levophed if needed
advance diet
Assessment / Plan
Assessment / Plan
General: Well Developed, Well Nourished and No Apparent Distress
HEENT: NormoCephalic, Moist mucous membranes and Atraumatic
Respiratory: Clear, R chest wall port noted
Cardiac: S1/S2 and Regular Rhythm; No Murmur or Rub
GI: Soft, Non Tender, Non Distended and Normal Bowel Sounds; No Organomegaly
Rectal: Deferred by Provider
Musculoskeletal: No Clubbing, No Cyanosis and No Edema
Skin: No Rash
Neuro: Nonfocal/grossly intact
#Hypovolemic/Hemorrhagic shock
#Acute blood loss anemia secondary to retroperitoneal hemorrhage
#Left renal artery extravasation status post embolization
-Status post 4 units of PRBC and hemoglobin 7.7 Repeat/trend hemoglobin
-Hold aspirin, Eliquis
-Kcentra given to reverse Eliquis
-Hold Lasix, metolazone
-Hold antihypertensives
-off levophed now. Goal MAP >65 and if needed restart levophed.
-Status post arteriogram with finding of large arterial active bleeding in the multiple left kidney status post embolization using coil and Gelfoam. Arteriogram showed many microaneurysm of the left kidney raising concern for vasculitis. ? Risk
factor due to multiple myeloma
-will ask Onc for input-Per oncology patient with amyloid angiopathy most likely etiology of active arterial bleeding
-Autoimmune workup started however seems likely secondary to amyloid angiopathy.
-
OLIVIA on CKD 3B
-some degree of creatinine to be elevated with contrast exposure, active arterial bleeding, hypertension, embolization of renal artery
-Probnp elevated and on high dose diuretics
-Monitor urinary output
-s/p IVF. Cr bumped at 3.8
-Will ask nephro for input
#Mild acute thrombocytopenia
-trend Plt for now
-If with severe drop will need transfusion
# Hypokalemia
-Replete potassium
Paroxysmal atrial fibrillation
-Continue amiodarone
-Holding Eliquis in the setting of active arterial bleed admitted to be held for at least 2 weeks
-Pt understands risk of restarting Eliquis in setting of amyloid angiopathy and hemorrhagic shock in future vs. benefit of prevention of CVA. Pt agreeable to continue to hold Eliquis
CAD status post stents
-Hold aspirin
-Hold isosorbide mononitrate
Normal ischemic myocardial injury in the setting of CKD/CAD
-Troponin level chronically elevated
Chronic HFrEF
-Hold metolazone, Lasix
Essential hypertension
-Hold hydralazine
Hypercholesterolemia
-Continue statin
History of recurrent left pleural effusion
Amyloidosis
Multiple myeloma on immunotherapy-Patient on venclexta
-Patient on Darzalex, vencclexta
-Continue dexamethasone
-continue prophylactic acyclovir
Chemotherapy-induced neuropathy
-Continue gabapentin
Gout
-Continue allopurinol
Depression
-Continue Lamictal, risperidone
Full code
DVT prophylaxis�SCDs in setting of hemorrhagic shock
Anticipated Discharge: > 48 hours
Subjective/Interval History
-
Date of Service: August 08, 2023
states of improvement in flank pain
Objective Data
-
Labs:
Laboratory Results
08/08/23 08/08/23 08/08/23
03:07 08:17 14:00
WBC 10.4
Hgb 7.7 L Pending
Hct 23.1 L Pending
Plt Count 118 L D
PT 18.8 H
INR 1.60
APTT 43.3 H
Sodium 133 L
Potassium 4.4
Chloride 98
Carbon Dioxide 25
BUN 55 H
Creatinine 3.8 H
Glucose 100 H
Calcium 7.9 L
Vital Signs:
Vital Signs
Temp Pulse Resp BP Pulse Ox
98.4 F 58 17 98/46 70
08/08/23 07:39 08/08/23 10:45 08/08/23 10:45 08/08/23 10:30 08/08/23 09:30
I&O
08/07/23 08/08/23 08/09/23
06:59 06:59 06:59
Intake Total 1747.5 / 1895.0 939.5 / 939.5
Output Total 50 / 50
Balance 1697.5 / 1845.0 939.5 / 939.5
Data Reviewed
-
Total Time Spent with Patient (in minutes): 55
--- NOTE | 2023-08-08 11:29 | W.PN.NEPH.PH ---
Today's Communication / Plan
-
- continue to trend Cr
Assessment/Plan
-
IMP:
OLIVIA on CKD Stage 4 baseline cr 1.8-2.5
CAD with cardiac stents
Paroxysmal atrial fibrillation
Second-degree AV block Mobitz type 1
Heart failure with preserved ejection fraction
Hypotension
[place] Amyloidosis
Multiple Myeloma
Left inferior renal artery bleed status postembolization 08/06/2023
Plan:
Maintain mean arterial pressure greater than 65, please add back levo if needed to maintain
No IV fluids required currently
Transfuse packed red blood cells as needed
Cr rising up to 3.8 today
Anuric at this time
Check serologies (pending)
Check urine when available (anuric)
Off anticoagulation
He understands the possibility of requiring dialysis given the severity of the insult. He would except dialysis if needed. Currently there is no emergent need for dialysis today
-
-
Date of Service: August 08, 2023
CC / HPI / ROS
-
Chief Complaint:
OLIVIA on CKD
History of Present Illness:
bleeding of inferior L renal artery Cr rising to 3.8 (bl 1.8-2.5)
Review of Systems:
anuric at this time
continue to trend Cr
providing supportive care
Labs
-
Labs:
WBC 10.4 10^3/uL (4.8-10.8) 08/08/23 08:17
RBC 2.63 10^6/uL (4.70-6.10) L 08/08/23 08:17
Plt Count 118 10^3/uL (130-400) L D 08/08/23 08:17
Sodium 133 mmol/L (135-145) L 08/08/23 03:07
Potassium 4.4 mmol/L (3.5-5.1) 08/08/23 03:07
Chloride 98 mmol/L (98-107) 08/08/23 03:07
Carbon Dioxide 25 mmol/L (22-30) 08/08/23 03:07
BUN 55 mg/dl (9-20) H 08/08/23 03:07
Creatinine 3.8 mg/dL (0.7-1.3) H 08/08/23 03:07
eGFR 16.01 08/08/23 03:07
Glucose 100 mg/dl (70-99) H 08/08/23 03:07
Calcium 7.9 mg/dl (8.4-10.2) L 08/08/23 03:07
Phosphorus 5.0 mg/dl (2.5-4.5) H 08/06/23 19:52
Hbn-C-Qsnzkbcwvmo Pept 99983 pg/ml 08/06/23 14:54
Albumin 2.7 g/dl (3.5-5.0) L 08/07/23 04:14
Physical Exam
-
Vital Signs:
Vital Signs
Temp Pulse Resp BP Pulse Ox
98.4 F 58 17 98/46 70
08/08/23 07:39 08/08/23 10:45 08/08/23 10:45 08/08/23 10:30 08/08/23 09:30
Cardiovascular:: Regular rate and rhythm
Respiratory:: Bilateral: Coarse
Lung Excursion:: Normal
Abdomen:: Nontender and Soft
Bowel Sounds:: Normal
Extremity Edema:: +1: Bilateral:
Viera Catheter: No
[2023-08-08 14:07] LABS: Hematocrit 22.9 % (39.0-52.0); Hemoglobin 7.7 g/dL (13.0-18.0)
--- NOTE | 2023-08-08 14:21 | PTCARENOTE ---
Dr. Campos made aware, no urine output. Bladder scanned for 205. Order to place dial catheter. 02 on RA dropping to 90%. 2L NC applied. Pt remains off of Levophed BP 118/51 MAP 70. R sub Q port hep locked. Will continue to monitor pt. closely
[2023-08-08 14:43] LABS: Urine Albumin 1+ (Neg - Trace); Urine Bilirubin 1+ (Negative); Urine Character Clear (Clear); Urine Color Yellow; Urine Glucose Negative (Negative); Urine Ketone Trace (Negative); Urine Leukocyte 1+ (Negative); Urine Nitrite Negative (Negative); Urine Occult Blood Negative (Negative); Urine Specific Gravity 1.015 (<1.030); Urine Urobilinogen Negative (Neg - 1+)
--- NOTE | 2023-08-08 14:51 | CM ---
CM following re: discharge planning.
Discussed in Rounds, reviewed pt' chart, met with pt. Per Rounds meeting, off pressors, OLIVIA worsening, possibility of requiring dialysis and pt wishes to except dialysis if needed, no emergency dialysis required, continue supportive care.
Pt lives alone in [place], 2 small steps to enter, has 2 supportive children and supportive ex-. 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
D/C plan: per pt request, home with family support. Family to transport at discharge.
CM will follow with discharge plan updates as hospitalization progresses
[2023-08-08 15:06] LABS: Urine Amorphous Seen; Urine Red Blood Cell 0-2 /HPF (0-2); Urine Squamous Cell 0-2 /LPF (Few)
[2023-08-08 15:07] LABS: Urine Bacteria Few (Negative)
[2023-08-08 15:26] LABS: Urine Sodium 26 mmol/L (30-90)
--- NOTE | 2023-08-08 16:46 | PTCARENOTE ---
Pt.'s HR dropped down into the 30's and then right back up into the mid-to-high 40's. Pt asymptomatic. Sitting up in chair. Dr. Barker notified and if pt sustain's staying in the 30's will start Dopamine. Will continue to monitor
[2023-08-08] MEDS: ZOVIRAX 200 MG PO (20:04)
[2023-08-08 20:33] LABS: Hematocrit 22.5 % (39.0-52.0); Hemoglobin 7.7 g/dL (13.0-18.0)
--- NOTE | 2023-08-08 20:36 | PTCARENOTE ---
report received, assessment as per work list. patient denies pain and rest, left flank pain with repositioning. scheduled Tylenol administered. patient instructed to inform this public relations writer if Tylenol is ineffective. patient requesting his pm
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 monitor bradycardic with av block and prolonged QT. right sq port capped, lungs with [email or web address]. Viera in place, scant urine output, joyce yellow. sacrum reddened, blanchable. foam
dressing placed. call angelo in reach
[2023-08-08] MEDS: ZETIA 10 MG PO (21:45)
--- NOTE | 2023-08-08 23:35 | PTCARENOTE ---
patient reassessed, no changes. discomfort with repositioning, but refuses any other prn medications other than scheduled tylenol. when asleep. sat 89-90 on room air. placed back on 0.5 liter nasal cannula. call angelo in reach
[2023-08-08 23:52] LABS: Complement C3 74 mg/dl (88-165)
[2023-08-09] VITALS (27 sets, daily range): BP systolic 96–135; BP diastolic 47–68; BMI 28.4
[2023-08-09] MEDS: ROXICODONE 5 MG PO (01:48)
--- NOTE | 2023-08-09 01:50 | PTCARENOTE ---
patient c/o left flank pain and difficulty getting comfortable and felt short of breath. lung sounds unchanged, pulse oximeter 97 on 0.5 liters. respiratory rate 20's. repositioned, medicated with Roxicodone. Ordnance Technician JASMYN updated
[2023-08-09] MEDS: TYLENOL PO (04:04)
[2023-08-09 04:26] LABS: % Basophils 0.3 % (0-2); % Eosinophils 0.1 % (0-6); % Immature Granulocytes 0.5 % (0-0.5); % Monocytes 11.7 % (1.7-9.3); % Neutrophils 84.4 % (42.2-75.2); Absolute Immature Granulocytes 0.1 10^3/uL (0-0.05); Absolute Lymphocytes 0.3 10^3/uL (1.2-3.4); Absolute Monocytes 1.2 10^3/uL (0.1-0.6); Absolute Neutrophils 8.7 10^3/uL (1.4-6.5); Hematocrit 22.8 % (39.0-52.0); Hemoglobin 7.5 g/dL (13.0-18.0); Mean Corp Hgb Conc. 32.9 g/dL (33.0-37.0); Mean Platelet Volume 9.9 fL (7.4-10.4); Nucleated Red Blood Cells % 0.2 % (-); Platelet Count 113 10^3/uL (130-400); Red Blood Cell Count 2.59 10^6/uL (4.70-6.10); Red Cell Dist. Width 18.4 % (11.5-14.5); White Blood Cell Count 10.3 10^3/uL (4.8-10.8)
--- NOTE | 2023-08-09 04:37 | PTCARENOTE ---
Addendum entered by Meghana Burgos RN 08/09/23 04:40:
no bowel movement since admission. reviewed with machine spreader, orders pending
Original Note:
reassessed, pain relieved but still c/o feeling dyspneic. pulse oximeter 96-98, respiratory rate 20's. no changes in lung assessment. 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 updated. labs sent, care provided. call angelo in reach
[2023-08-09 04:50] LABS: Blood Urea Nitrogen 61 mg/dl (9-20); Calcium 8.1 mg/dl (8.4-10.2); Carbon Dioxide 24 mmol/L (22-30); Chloride 97 mmol/L (98-107); Estimated Creatinine Clearance 14 ml/min; Glucose 108 mg/dl (70-99); Sodium 132 mmol/L (135-145)
--- NOTE | 2023-08-09 07:26 | W.PN.INTV ---
Today's Communication / Plan
Recommendations
OLIVIA worsening, renal following for further recs
Hb has stabilized, watchful waiting no CBC
Hold amio for bradycardia, can consult cards if worsening
Continue PT/OT
If planning HD, can observe in ICU for treatment tolerance and/or need for pressors
Assessment
-
72 year old M with history of MM, amyloid, CHF presenting this AM with acute on set SOB and presyncope. Then developed acute onset L sided flank pain 11/26. He recently underwent cardioversion for Afib 07/17/23, placed on lasix for fluid retention.
In ER, notably pale. CBC showing anemia, Hb 6.1 (last Hb 9.4 on 08/01/23). INR 2.51. CT AP showing acute retroperitoneal hematoma likely from L kidney. On Eliquis for AFib. Of note, proBNP 11,200 on admission, he is hypotensive presumably from
volume loss and placed on levophed.
Acute hypovolemic shock on pressors
Acute L sided retroperitoneal hemorrhage
L renal hemorrhage s/p IR coil embolization 08/06/23
Acute coagulopathy
Acute HFpEF exacerbation
Acute blood loss anemia
Bradycardia, possible 1st deg
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
Coronary artery disease s/p Cardiac stents x 4 2010
Atrial fibrillation s/p CV
Stage 3b chronic kidney disease
HTN
Chronic HF pEF
HLD
COPD --moderate obstruction PFT 2020/moderately severe restriction/moderate diffusion impairment
Pleural effusion s/p L thora 04/16/23 and 04/05/23- 1200mL and 1000mL of yellow pleural fluid.
Left knee torn meniscus s/p arthroscopic repair 2000
Torn rotator cuff x 3 , , 2000
Hernia repair
B/l knees replaced 2010 with revisions 2012
MM Follows with Dr Crocker on Darzalex for treatment
Former smoker, 30+ pack years
Plan
No current signs of metabolic encephalopathy or MS changes/following commands
Pain/sedation: PRN Tylenol, IV Dilaudid, add on PO regiment
RASS goals: 0
Hemodynamically stable, levophed initiated--now weaned to off
Cardiac history reviewed--HTN, HFpEF, Afib s/p CV, on lasix at home
On Eliquis--hold
Prior ECHO reviewed indicating reduced EF in past
Hold home meds while hypotensive
May need repeat ECHO
Itz noted, but not sustained, will consult cards if worsening
Hold amio
Oxygen needs: supplemental O2
Prior history of lung disease: none per patient, former smoker
PFT from 2020 suggesting COPD
History of pleural effusions s/p thora x 2 of transudative fluid
Supplemental O2 as indicated to maintain sats > 89%
CXR/CT reviewed indicating pleural effusions
CT CAP showing acute intraab bleed
Advanced diet
Closing Agent recommendations
Aspiration precautions, HOB > 30 degrees
Speech therapy eval can be considered if at elevated risk
GI prophylaxis if indicated for mechanical ventilation >48 hours, prior history of GERD, stress ulcer formation in the critically ill
CKD stage III -- creat at baseline, mid 2s
OLIVIA worsening, creat 3.8 -> 4.9 with oliguria/anuria
Renal following, appreciate recs, may need HD
Void trials
Follow urine output, critical I/Os
Replete electrolytes as needed
Not on abx, no fever
Follow fever trend, WBC count
Continue to observe off abx for now
MM history, known to [place]
Heme consult
CBC reviewed, acute anemia from intra-abd bleeding
INR at 2 w/ coagulopathy
Received 2 units, if ongoing anemia is noted, may need repeat imaging
DVT prophylaxis as assessed based on risk, including mechanical SCDs
Can transfuse if indicated for Hb <7, plt < 10--transfusion based on antibody screening
Hold home MM meds, resume chronic PO steroids when able
No prior h/o diabetes or thyroid disease
Diagnostic Data
Chest X-Ray: 08/06/23- Low lung volumes with small left pleural effusion and left basilar atelectasis.
08/01/23- Bilateral small pleural effusions and adjacent atelectasis, left greater than right. Unchanged on the left and slightly improved on the right as compared with prior.
CT Scan:
Echo: 04/23/23- Moderate concentric left ventricular hypertrophy. Mildly reduced left ventricular systolic function. Left ventricular ejection fraction is 46%, by Zavala' s method. GLS Endo peak avg.= -6.4 %. Normal right ventricular size and
function. Right ventricular hypertrophy. No significant valvular disease. Compared to previous echo 01/09/23, the ejection fraction had decreased from normal to mildly decreased. Once again GLS and e' are decreased.
PFT's: 05/18/20: FEV1 1.74L 52%, FVC 2.58L 57%, ratio 68 post FEV1 1.79L 54%. TLC 4.25L 58%, DLCO 50%
Reports and relevant images were personally reviewed.
-----
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
Subjective Dataa
Subjective Data
Date of Service:
Date of Service: August 09, 2023
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
Subjective:
no events ON but notably UO has decreased
bradycardic episodes on/off but not sustained, bp stable
Objective Data
Data Reviewed
Vital Signs / I&O / Oxygen:
Vital Signs
Temp Pulse Resp BP Pulse Ox
97.1 F 54 24 118/55 97
08/09/23 03:18 08/09/23 07:15 08/09/23 07:15 08/09/23 07:00 08/09/23 07:15
Intake and Output
08/08/23 08/09/23 08/10/23
06:59 06:59 06:59
Intake Total 939.5 / 939.5 520 / 520 0 / 0
Output Total 260 / 265 5 / 5
Balance 939.5 / 939.5 260 / 255 -5 / -5
SaO2 97
Nasal Cannula flow liters per 0.5
minute
Physical Exam
General: Comfortable, Pain and Other (NAD)
HEENT: Normocephalic, Anicteric and Moist Mucous Membranes
Cardiovascular: S1-S2, Regular Rhythm and Other (PORT in R chest)
Respiratory: Clear and Non-Labored Respirations
GI: Soft, Non Distended, Tender and Other (decreased BS)
Neurology: Awake, Alert, Oriented, AO x 3 and No Motor Deficits
Skin: Warm and Dry
Labs/Micro/Reports
Lab Data
08/09/23 04:11
08/09/23 04:11
[2023-08-09] MEDS: COLACE 100 MG PO ×2 (07:28→20:29)
[2023-08-09] MEDS: NEURONTIN 100 MG PO ×3 (07:28→20:30)
[2023-08-09] MEDS: TYLENOL 650 MG PO ×4 (07:28→20:28)
[2023-08-09] MEDS: LAMICTAL 100 MG PO ×2 (07:29→20:29)
[2023-08-09] MEDS: SENOKOT 17.1999999999999993 MG PO ×2 (07:29→20:28)
[2023-08-09] MEDS: CRESTOR 10 MG PO (07:29)
[2023-08-09] MEDS: NON-FORMULARY ITEM 200 MG PO (07:31)
--- NOTE | 2023-08-09 09:17 | W.PN.ONC ---
Today's Communication / Plan
-
He may have amyloid deposition in vasculature (amyloid angiopathy), making him prone to bleeding due to vessel fragility
Would continue to monitor CBC transfuse hemoglobin less than 7.0 grams per deciliter
Risks of resuming Eliquis may outweigh benefits
Will follow along peripherally, follow-up in the office
Impression
Impression
left renal artery hemorrhage, spontaneous
AL amyloidosis
pAfib on Eliquis
Anemia
Subjective/Objective
Subjective/Objective
No new complaints today
Vital Signs:
Vital Signs
Temp Pulse Resp BP Pulse Ox
98.9 F 54 24 118/55 97
08/09/23 08:00 08/09/23 07:15 08/09/23 07:15 08/09/23 07:00 08/09/23 07:15
No scleral icterus
No murmur
Clear without rales
Extremity symmetrical
Left lateral hematoma stable as per ink marked
Lab Results:
Laboratory Data
WBC 10.3 10^3/uL (4.8-10.8) 08/09/23 04:11
Hgb 7.5 g/dL (13.0-18.0) L 08/09/23 04:11
Plt Count 113 10^3/uL (130-400) L 08/09/23 04:11
PT 18.8 Sec (11.4-14.6) H 08/08/23 03:07
INR 1.60 08/08/23 03:07
APTT 43.3 Sec (23.4-35.0) H 08/08/23 03:07
eGFR 11.80 08/09/23 04:11
[2023-08-09] MEDS: ZOVIRAX 200 MG PO ×2 (09:39→20:29)
[2023-08-09] MEDS: ZYLOPRIM 100 MG PO (09:39)
[2023-08-09] MEDS: PACERONE PO (09:39)
--- NOTE | 2023-08-09 10:36 | PTCARENOTE ---
oob to chair, c/o air hungry, o2 replaced, increased to 2l, encouraged c&db, some relief. willing to stay in recliner. no other change, call angelo in reach.
--- NOTE | 2023-08-09 12:46 | W.PN.HOSP.TC ---
Today's Communication/Plan
-
Trend hemoglobin
Monitor creatinine
Nephrology recs
Transfuse hemoglobin less than 7
Monitor urinary output
Assessment / Plan
Assessment / Plan
General: Well Developed, Well Nourished and No Apparent Distress
HEENT: NormoCephalic, Moist mucous membranes and Atraumatic
Respiratory: Clear, R chest wall port noted
Cardiac: S1/S2, irregularly irregular no Murmur or Rub
GI: Soft, Non Tender, Non Distended and Normal Bowel Sounds; No Organomegaly
Rectal: Deferred by Provider
Musculoskeletal: No Clubbing, No Cyanosis and No Edema
Skin: No Rash
Neuro: Nonfocal/grossly intact
#Hypovolemic/Hemorrhagic shock
#Acute blood loss anemia secondary to retroperitoneal hemorrhage
#Left renal artery extravasation status post embolization
-Status post 4 units of PRBC and hemoglobin 7.5 Repeat/trend hemoglobin
-Hold aspirin, Eliquis
-Kcentra given to reverse Eliquis
-Hold Lasix, metolazone
-Hold antihypertensives
-off levophed now. Goal MAP >65 and if needed restart levophed.
-Status post arteriogram with finding of large arterial active bleeding in the multiple left kidney status post embolization using coil and Gelfoam. Arteriogram showed many microaneurysm of the left kidney raising concern for vasculitis. ? Risk
factor due to multiple myeloma
-will ask Onc for input-Per oncology patient with amyloid angiopathy most likely etiology of active arterial bleeding
-Autoimmune workup started however seems likely secondary to amyloid angiopathy.
-Transfuse for hemoglobin less than 7 per oncology.
OLIVIA on CKD 3B
-some degree of creatinine to be elevated with contrast exposure, active arterial bleeding, hypertension, embolization of renal artery
-Probnp elevated and on high dose diuretics
-Monitor urinary output
-s/p IVF. Cr bumped at 4.9
-May require temporary dialysis and patient willing to accept if offered.
#Mild acute thrombocytopenia
-trend Plt for now
-If with severe drop will need transfusion
# Hypokalemia
-Replete potassium
Paroxysmal atrial fibrillation with intermittent bradycardia.
-Continue amiodarone hold parameters added.
-Holding Eliquis in the setting of active arterial bleed admitted to be held for at least 2 weeks
-Pt understands risk of restarting Eliquis in setting of amyloid angiopathy and hemorrhagic shock in future vs. benefit of prevention of CVA. Pt agreeable to continue to hold Eliquis
CAD status post stents
-Hold aspirin
-Hold isosorbide mononitrate
Normal ischemic myocardial injury in the setting of CKD/CAD
-Troponin level chronically elevated
Chronic HFrEF
-Hold metolazone, Lasix
Essential hypertension
-Hold hydralazine
Hypercholesterolemia
-Continue statin
History of recurrent left pleural effusion
Amyloidosis
Multiple myeloma on immunotherapy-Patient on venclexta
-Patient on Darzalex, vencclexta
-when on chemo takes dexamethasone
-continue prophylactic acyclovir
Chemotherapy-induced neuropathy
-Continue gabapentin
Gout
-Continue allopurinol
Depression
-Continue Lamictal, risperidone
Full code
DVT prophylaxis�SCDs in setting of hemorrhagic shock
Anticipated Discharge: > 48 hours
Subjective/Interval History
-
Date of Service: August 09, 2023
Patient is improvement in abdominal pain
And mild shortness of breath overnight which has resolved
Remains in A-fib with bradycardia
Objective Data
-
Labs:
Laboratory Results
08/09/23
04:11
WBC 10.3
Hgb 7.5 L
Hct 22.8 L
Plt Count 113 L
Sodium 132 L
Potassium 5.0
Chloride 97 L
Carbon Dioxide 24
BUN 61 H
Creatinine 4.9 H*
Glucose 108 H
Calcium 8.1 L
Vital Signs:
Vital Signs
Temp Pulse Resp BP Pulse Ox
98.9 F 40 27 102/54 93
08/09/23 08:00 08/09/23 10:31 08/09/23 10:31 08/09/23 10:31 08/09/23 10:15
I&O
08/08/23 08/09/23 08/10/23
06:59 06:59 06:59
Intake Total 939.5 / 939.5 520 / 520 360 / 360
Output Total 260 / 265 35 / 35
Balance 939.5 / 939.5 260 / 255 325 / 325
Data Reviewed
-
Total Time Spent with Patient (in minutes): 55
--- NOTE | 2023-08-09 13:22 | PTCARENOTE ---
attempted to walk, made it in room, all the way around the bed, then knees became weak and, using RW, back to bed. presently resting in bed.
--- NOTE | 2023-08-09 14:52 | CM ---
CM following re: discharge planning.
Discussed in rounds, reviewed pt' chart, met with pt.
Pt is aware he will start HD tomorrow and pt will need outpatient HD treatment. Also, pt is aware that PT and OT recommend SNF level of care. Pt expressed his agreement and pt requested a SNF in [place]. CM is developing options of SNF with HD onsite in
[place].
D/c plan: SNF in [place] with outpatient HD treatment
CM will follow to assist pt with discharge to a SNF in [place] with outpatient HD treatment.
--- NOTE | 2023-08-09 14:58 | PTCARENOTE ---
12 lead obtained, monitor remains afib, occas slow VR, Dr. Barker aware. Pt is without symptoms, pleasant, resting in bed.
--- NOTE | 2023-08-09 14:59 | PN.CDI ---
CDI
- -
CDI:
Physician Documentation Request
Admit Date: 08/06/23 17:01
Dear Doctor Radha,
Patient admitted with retroperitoneal hemorrhage.
Na level's documented below:
Laboratory Tests
08/06/23 08/06/23 08/07/23
14:54 19:52 15:45
Sodium 134 L 134 L 132 L
08/08/23 08/09/23
03:07 04:11
Sodium 133 L 132 L
Based on the above, could you clarify in the progress notes, the appropriate diagnosis, if significant, that supports the above abnormalities and additional evaluation, monitoring and/or treatment rendered:
Hyponatremia
Insignificant abnormal lab findings
Other
Use of terms such as suspected, likely, concern for, or probable (associated with a specific diagnosis that is being evaluated, monitored, or treated as if it exists) are acceptable and can be coded in the inpatient setting, when documented at the
time of discharge.
Thank you,
Salile DIETZ,RN,CCDS
CDI Specialist
Available via [place] text
Please use your independent medical judgment in providing your response.
--- NOTE | 2023-08-09 15:26 | W.PN.URO.CBU ---
Today's Communication / Plan
-
Trend HGB
Trend renal function
Hold anticoagulation
Assessment / Plan
-
72M with afib, CAD on Eliquis with hemorrhagic shock, spontaneous left renal hemorrhage
s/p successful selective embolization of L renal artery branch by IR 08/05
- HGB stabilized >24hrs s/p transfusion 4 units PRBCs
- Okay to resume OOB/activity
- Trend renal function - multifactorial OLIVIA from contrast, pressors, as well as impact of partial L kidney embolization. Possible HD per nephrology
- Hold anticoagulation at least 14 days post embolization. Given the presence of multiple other small renal artery aneurysms seen on arteriogram, consideration should be given to permanently discontinuing AC for risk of recurrent life threatening
bleed
Diagnosis
-
Date of Service: August 09, 2023
-
Post Op Day:
Patient Diagnosis:
Spontaneous retroperitoneal hemorrhage
Post Op Day: s/ IR selective coil embolization of accessory renal artery 08/05
Subjective
-
No events overnight
Low urine output
Objective
-
Vital Signs
Temp Pulse Resp BP Pulse Ox
99.2 F 52 17 108/56 100
08/09/23 15:10 08/09/23 14:00 08/09/23 14:00 08/09/23 14:00 08/09/23 14:00
Intake and Output
08/08/23 08/09/23 08/10/23
06:59 06:59 06:59
Intake Total 939.5 / 939.5 520 / 520 360 / 360
Output Total 260 / 265 55 / 55
Balance 939.5 / 939.5 260 / 255 305 / 305
Intake:
Oral fluids 120 / 120 520 / 520 360 / 360
IV fluids (Total) 819.5 / 819.5
Levophed 499.5 / 499.5
Lr 1,000 ml @ 80 mls/hr IV . 320 / 320
[id number] GREGORY Rx#:[id number]
Output:
Urine, Dial 260 / 265 55 / 55
Laboratory Results
08/09/23 04:11
Physical Exam
-
General - well developed, well nourished, no acute distress
Chest - clear
Abdomen - soft, non-tender
- dial in pl
Skin - warm & dry with no rash
Incision - clean, dry
Dressing - clean, dry, intact
--- NOTE | 2023-08-09 15:38 | W.PN.NEPH.PH ---
Today's Communication / Plan
-
- HD line placement today with IR
Assessment/Plan
-
IMP:
OLIVIA on CKD Stage 4 baseline cr 1.8-2.5
CAD with cardiac stents
Paroxysmal atrial fibrillation
Second-degree AV block Mobitz type 1
Heart failure with preserved ejection fraction
Hypotension
AL Amyloidosis
Multiple Myeloma
Left inferior renal artery bleed status postembolization 08/06/2023
Plan:
Maintain mean arterial pressure greater than 65
No IV fluids required currently
Transfuse packed red blood cells as needed. Hgb has been stable
Cr rising up to 4.9 today
Consulted IR for temp HD line placement
If Cr does not improve by tomorrow, plan for HD initiation
Oliguric at this time
Check serologies (pending, C3 slightly low, C4 normal)
Check urine when available (anuric)
Off anticoagulation
He understands the possibility of requiring dialysis given the severity of the insult. He would accept dialysis if needed. Currently there is no emergent need for dialysis today but will plan to intiate tomorrow if Cr does not improve
-
-
Date of Service: August 09, 2023
CC / HPI / ROS
-
Chief Complaint:
OLIVIA on CKD
History of Present Illness:
bleeding of inferior L renal artery Cr rising to 4.9 (bl 1.8-2.5)
Review of Systems:
oliguric at this time
continue to trend Cr
providing supportive care
Labs
-
Labs:
WBC 10.3 10^3/uL (4.8-10.8) 08/09/23 04:11
RBC 2.59 10^6/uL (4.70-6.10) L 08/09/23 04:11
Plt Count 113 10^3/uL (130-400) L 08/09/23 04:11
Sodium 132 mmol/L (135-145) L 08/09/23 04:11
Potassium 5.0 mmol/L (3.5-5.1) 08/09/23 04:11
Chloride 97 mmol/L (98-107) L 08/09/23 04:11
Carbon Dioxide 24 mmol/L (22-30) 08/09/23 04:11
BUN 61 mg/dl (9-20) H 08/09/23 04:11
Creatinine 4.9 mg/dL (0.7-1.3) H* 08/09/23 04:11
eGFR 11.80 08/09/23 04:11
Glucose 108 mg/dl (70-99) H 08/09/23 04:11
Calcium 8.1 mg/dl (8.4-10.2) L 08/09/23 04:11
Phosphorus 5.0 mg/dl (2.5-4.5) H 08/06/23 19:52
Qsf-F-Ykurybummuj Pept 43740 pg/ml 08/06/23 14:54
Albumin 2.7 g/dl (3.5-5.0) L 08/07/23 04:14
Physical Exam
-
Vital Signs:
Vital Signs
Temp Pulse Resp BP Pulse Ox
99.2 F 52 17 108/56 100
08/09/23 15:10 08/09/23 14:00 08/09/23 14:00 08/09/23 14:00 08/09/23 14:00
Cardiovascular:: Regular rate and rhythm
Respiratory:: Bilateral: Coarse
Lung Excursion:: Normal
Abdomen:: Nontender and Soft
Bowel Sounds:: Normal
Extremity Edema:: +1: Bilateral:
Viera Catheter: Yes
--- NOTE | 2023-08-09 18:47 | PTCARENOTE ---
not interested in dinner but will attempt non-par tray sent. resting. I/O collected, dial remains scant output. Per IR, HD access to be approx 0800 tomorrow am and IR staff was going to inform nephrology.
--- NOTE | 2023-08-09 20:15 | PTCARENOTE ---
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 H&H to lab. POC discussed, call angelo with patient.
[2023-08-09 20:24] LABS: Hematocrit 22.3 % (39.0-52.0); Hemoglobin 7.3 g/dL (13.0-18.0)
[2023-08-09] MEDS: RISPERDAL 0.25 MG PO (20:30)
[2023-08-09] MEDS: ZETIA 10 MG PO (20:30)
[2023-08-09 20:56] LABS: ANA, IgG Reflex to HEp-2 None Detected (None Detected)
[2023-08-10] VITALS (40 sets, daily range): BP systolic 105–157; BP diastolic 46–75; BMI 28.5
[2023-08-10] MEDS: TYLENOL PO ×5 (00:30→23:59)
[2023-08-10 01:58] LABS: ds-DNA Ab, IgG Reflex To Titer 1 IU (0-24)
--- NOTE | 2023-08-10 04:00 | PTCARENOTE ---
no changes in pt assessment.
[2023-08-10] MEDS: TYLENOL 650 MG PO ×2 (05:00→08:23)
[2023-08-10 05:56] LABS: % Basophils 0.4 % (0-2); % Immature Granulocytes 0.6 % (0-0.5); % Lymphocytes 3.2 % (20.5-51.1); % Monocytes 11.8 % (1.7-9.3); Absolute Immature Granulocytes 0.1 10^3/uL (0-0.05); Absolute Lymphocytes 0.4 10^3/uL (1.2-3.4); Absolute Monocytes 1.3 10^3/uL (0.1-0.6); Absolute Neutrophils 9.2 10^3/uL (1.4-6.5); Hematocrit 22.5 % (39.0-52.0); Hemoglobin 7.6 g/dL (13.0-18.0); Mean Corp Hgb Conc. 33.8 g/dL (33.0-37.0); Mean Corpuscular Hgb 29.6 pg (27.0-31.0); Mean Corpuscular Volume 87.5 fL (80.0-94.0); Mean Platelet Volume 10.8 fL (7.4-10.4); Nucleated Red Blood Cells % 0 % (-); Platelet Count 136 10^3/uL (130-400); Red Blood Cell Count 2.57 10^6/uL (4.70-6.10); Red Cell Dist. Width 18.1 % (11.5-14.5); White Blood Cell Count 10.9 10^3/uL (4.8-10.8)
[2023-08-10 07:29] LABS: Blood Urea Nitrogen 73 mg/dl (9-20); Calcium 8.1 mg/dl (8.4-10.2); Chloride 98 mmol/L (98-107); Estimated Creatinine Clearance 12 ml/min; Glucose 112 mg/dl (70-99); Potassium 5.3 mmol/L (3.5-5.1); Sodium 130 mmol/L (135-145); eGFR 9.64
[2023-08-10 07:45] LABS: Carbon Dioxide 19 mmol/L (22-30)
[2023-08-10] MEDS: COLACE 100 MG PO ×2 (08:22→20:55)
[2023-08-10] MEDS: LAMICTAL 100 MG PO ×2 (08:23→20:56)
[2023-08-10] MEDS: NON-FORMULARY ITEM 200 MG PO (08:23)
[2023-08-10] MEDS: SENOKOT PO ×2 (08:23→20:55)
[2023-08-10] MEDS: ZOVIRAX 200 MG PO ×2 (08:23→20:57)
[2023-08-10] MEDS: NEURONTIN 100 MG PO ×2 (08:23→18:20)
[2023-08-10] MEDS: CRESTOR 10 MG PO (08:23)
[2023-08-10] MEDS: ZYLOPRIM 100 MG PO (08:24)
--- NOTE | 2023-08-10 08:38 | W.PN.URO.CBU ---
Today's Communication / Plan
-
Trend HGB daily
Trend renal function, HD per nephrology if needed
Assessment / Plan
-
72M with afib, CAD on Eliquis with hemorrhagic shock, spontaneous left renal hemorrhage
s/p successful selective embolization of L renal artery branch by IR 08/05
- HGB stabilized >48hrs s/p transfusion 4 units PRBCs
- Okay to resume OOB/activity
- Trend renal function - multifactorial OLIVIA from contrast, pressors, as well as impact of partial L kidney embolization. Possible HD per nephrology
- Hold anticoagulation at least 14 days post embolization. Given the presence of multiple other small renal artery aneurysms seen on arteriogram, consideration should be given to permanently discontinuing AC for risk of recurrent life threatening
bleed
Diagnosis
-
Date of Service: August 10, 2023
-
Post Op Day:
Patient Diagnosis:
Spontaneous retroperitoneal hemorrhage
Post Op s/p IR selective coil embolization of accessory renal artery 08/05
Subjective
-
no events overnight
Objective
-
Vital Signs
Temp Pulse Resp BP Pulse Ox
98.7 F 37 21 123/49 100
08/10/23 07:49 08/10/23 06:00 08/10/23 06:00 08/10/23 06:00 08/10/23 06:00
Intake and Output
08/09/23 08/10/23 08/11/23
06:59 06:59 06:59
Intake Total 520 / 520 410 / 410
Output Total 260 / 265 215 / 215
Balance 260 / 255 195 / 195
Intake:
Oral fluids 520 / 520 410 / 410
Output:
Urine, Viera 260 / 265 215 / 215
Laboratory Results
08/10/23 05:34
08/10/23 05:34
Physical Exam
-
General - well developed, well nourished, no acute distress
Chest - clear
Abdomen - soft, non-tender
Viera clear
Skin - warm & dry with no rash
Neuro - AOx3, no motor deficits
--- NOTE | 2023-08-10 09:20 | W.PN.INTV ---
Today's Communication / Plan
Recommendations
OLIVIA worsening, renal following for further recs ---> starting HD today
Trend Hb
Hold amio for bradycardia, cardiology on board - recs appreciated
PT/OT
If he tolerates HD then we will TRX out of ICU
Assessment
-
72 year old M with history of MM, amyloid, CHF presenting this AM with acute on set SOB and presyncope. Then developed acute onset L sided flank pain 11/26. He recently underwent cardioversion for Afib 07/17/23, placed on lasix for fluid retention.
In ER, notably pale. CBC showing anemia, Hb 6.1 (last Hb 9.4 on 08/01/23). INR 2.51. CT AP showing acute retroperitoneal hematoma likely from L kidney. On Eliquis for AFib. Of note, proBNP 11,200 on admission, he is hypotensive presumably from
volume loss and placed on levophed.
Impression:
Acute hypovolemic shock on pressors - shock state now resolved
Acute L sided retroperitoneal hemorrhage (perinephric seen on CTA abd/pelvis from 08/06/2023)
L renal hemorrhage s/p IR coil embolization 08/06/23
Acute coagulopathy
Acute HFpEF exacerbation with bilateral pleural effusions (L>R)
Acute blood loss anemia
Bradycardia, possible 1st deg
OLIVIA on CKD now awaiting HD
Right sided renal stone (non-obstructive)
Acute respiratory failure with hypoxia on supplemental oxygen
Conditions present [employer]
Coronary artery disease s/p Cardiac stents x 2010
Atrial fibrillation s/p CV
Stage 3b chronic kidney disease
HTN
Chronic HF pEF
HLD
COPD --moderate obstruction PFT 2020/moderately severe restriction/moderate diffusion impairment
Pleural effusion s/p L thora 04/16/23 and 04/05/23- 1200mL and 1000mL of yellow pleural fluid.
Left knee torn meniscus s/p arthroscopic repair 2000
Torn rotator cuff x 3 , , 2000
Hernia repair
B/l knees replaced 2010 with revisions 2012
MM Follows with Dr Crocker on Darzalex for treatment
Former smoker, 30+ pack years
Plan
No current signs of metabolic encephalopathy or MS changes/following commands
Hemodynamically stable, s/p levophed --now off
Cardiac history reviewed--HTN, HFpEF, Afib s/p CV, on lasix at home
On Eliquis--hold
Prior ECHO reviewed indicating reduced EF in past
Hold home meds while hypotensive
May need repeat ECHO, although recent TTE from 07/17/2023 showed mild�moderate MR with normal biventricular size/function without regional WMA
Bradycardia is sustained and cardiology consulted - recs appreciated
Hold amio
Maintain SpO2 >90-94%
Prior history of lung disease: none per patient, former smoker
PFT from 2020 suggesting COPD due to asthma (given correction of low DLco with DLco/VA of 92%)
History of pleural effusions s/p thora x 2 of transudative fluid
Supplemental O2 as indicated to maintain sats > 89%
CXR/CT reviewed indicating pleural effusions
CT CAP showing acute left perinephric bleed
CKD stage III -- creat at baseline, mid 2s --> to start HD today s/p non-tunneled temporary HD catheter placement by IR
OLIVIA worsening, creat 3.8 -> 4.9 with oliguria/anuria
Renal following, appreciate recs, may need HD
Void trials
Follow urine output, critical I/Os
Replete electrolytes as needed
Not on abx, no fever
Follow fever trend, WBC count
Continue to observe off abx for now
MM history, known to [facility]
Heme consulted
CBC reviewed, acute anemia from intra-abd bleeding
INR at 2 w/ coagulopathy
Received 2 units, if ongoing anemia is noted, may need repeat imaging
DVT prophylaxis as assessed based on risk, including mechanical SCDs - start HSQ 5000 q12hr today and continue to trend Hb
Can transfuse if indicated for Hb <7, plt < 10--transfusion based on antibody screening
Hold home MM meds, resume chronic PO steroids when able
No prior h/o diabetes or thyroid disease
Total time spent today was 75 minutes for this encounter. Time includes reviewing laboratory test/imaging results, reviewing pertinent medical records, obtaining and reviewing medical history, performing an appropriate exam, ordering medications,
tests and procedures. Time also includes documentation of this encounter, coordinating patient care and communicating with other healthcare professionals. Total time does not include separately billed tests performed on this date of service.
Diagnostic Data
Chest X-Ray: 08/06/23- Low lung volumes with small left pleural effusion and left basilar atelectasis.
08/01/23- Bilateral small pleural effusions and adjacent atelectasis, left greater than right. Unchanged on the left and slightly improved on the right as compared with prior.
CT Scan:
Echo: 04/23/23- Moderate concentric left ventricular hypertrophy. Mildly reduced left ventricular systolic function. Left ventricular ejection fraction is 46%, by Zavala' s method. GLS Endo peak avg.= -6.4 %. Normal right ventricular size and
function. Right ventricular hypertrophy. No significant valvular disease. Compared to previous echo 01/09/23, the ejection fraction had decreased from normal to mildly decreased. Once again GLS and e' are decreased.
PFT's: 05/18/20: FEV1 1.74L 52%, FVC 2.58L 57%, ratio 68 post FEV1 1.79L 54%. TLC 4.25L 58%, DLCO 50%
Reports and relevant images were personally reviewed.
Subjective Dataa
Subjective Data
Date of Service:
Date of Service: August 10, 2023
Chief Complaint: Telephonic Case Manager Follow Up
Subjective:
Seen this morning. No acute events reported overnight. Heart rate 42, BP is 135/72. On 2L/min with SpO2 100%. She denies chest pain, headache, fevers or chills.
Review of Systems
General: Other (Negative unless mentioned above)
Objective Data
Data Reviewed
Vital Signs / I&O / Oxygen:
Vital Signs
Temp Pulse Resp BP Pulse Ox
98.7 F 37 21 123/49 100
08/10/23 07:49 08/10/23 06:00 08/10/23 06:00 08/10/23 06:00 08/10/23 06:00
Intake and Output
08/09/23 08/10/23 08/11/23
06:59 06:59 06:59
Intake Total 520 / 520 410 / 410
Output Total 260 / 265 215 / 215
Balance 260 / 255 195 / 195
SaO2 100
Nasal Cannula flow liters per 2
minute
Physical Exam
General: Comfortable, Pain and Other (NAD)
HEENT: Normocephalic, Anicteric and Moist Mucous Membranes
Cardiovascular: S1-S2 and Other (PORT in R chest)
Respiratory: Clear, Wheeze (n), Crackles (n) and Non-Labored Respirations
GI: Soft, Non Distended, Tender and Other (decreased BS)
Neurology: Awake, Alert, Oriented, AO x 3 and No Motor Deficits
Skin: Warm and Dry
Labs/Micro/Reports
Lab Data
08/10/23 05:34
08/10/23 05:34
--- NOTE | 2023-08-10 10:25 | W.PN.HOSP.TC ---
Today's Communication/Plan
-
Remains with bradycardia
Cards input
Plan for HD today
Monitor hemodynamics closely in ICU
Assessment / Plan
Assessment / Plan
General: Well Developed, Well Nourished and No Apparent Distress
HEENT: NormoCephalic, Moist mucous membranes and Atraumatic
Respiratory: Clear, R chest wall port noted
Cardiac: S1/S2, irregularly irregular no Murmur or Rub, RIJ HD catheter noted
GI: Soft, Non Tender, Non Distended and Normal Bowel Sounds; No Organomegaly
Rectal: Deferred by Provider
Musculoskeletal: No Clubbing, No Cyanosis and No Edema
Skin: No Rash
Neuro: Nonfocal/grossly intact
#Hypovolemic/Hemorrhagic shock
#Acute blood loss anemia secondary to retroperitoneal hemorrhage
#Left renal artery extravasation status post embolization
-Status post 4 units of PRBC and hemoglobin 7.6 Repeat/trend hemoglobin
-Hold aspirin, Eliquis
-Kcentra given to reverse Eliquis
-Hold Lasix, metolazone
-Hold antihypertensives
-off levophed now. Goal MAP >65 and if needed restart levophed.
-Status post arteriogram with finding of large arterial active bleeding in the multiple left kidney status post embolization using coil and Gelfoam. Arteriogram showed many microaneurysm of the left kidney raising concern for vasculitis. ? Risk
factor due to multiple myeloma
-will ask Onc for input-Per oncology patient with amyloid angiopathy most likely etiology of active arterial bleeding
-Autoimmune workup started however seems likely secondary to amyloid angiopathy. INDIO negative. Complements C3 elevated C4 normal. ANCA pending.
-Transfuse for hemoglobin less than 7 per oncology.
OLIVIA on CKD 4
-some degree of creatinine to be elevated with contrast exposure, active arterial bleeding, hypertension, embolization of renal artery
-Probnp elevated and on high dose diuretics
-Monitor urinary output
-s/p IVF. Cr continue to uptrend with minimal urinary output. Creatinine 5.8 today
-Status post HD catheter placement with plan for HD today. Monitor hemodynamics closely
#Mild acute thrombocytopenia
-trend Plt for now. Platelet stabilizing at 136 K now
-If with severe drop will need transfusion
# Hypokalemia
-Replete potassium
Paroxysmal atrial fibrillation with bradycardia
-Amiodarone on hold. Will ask cardiology for input.
-Holding Eliquis in the setting of active arterial bleed admitted to be held for at least 2 weeks
-Pt understands risk of restarting Eliquis in setting of amyloid angiopathy and hemorrhagic shock in future vs. benefit of prevention of CVA. Pt agreeable to continue to hold Eliquis
CAD status post stents
-Hold aspirin
-Hold isosorbide mononitrate
Normal ischemic myocardial injury in the setting of CKD/CAD
-Troponin level chronically elevated
Chronic HFrEF
-Hold metolazone, Lasix
Essential hypertension
-Hold hydralazine. Blood pressure should improve with HD and volume removal if he can tolerate it as now on the softer side.
Hypercholesterolemia
-Continue statin
History of recurrent left pleural effusion
Amyloidosis
Multiple myeloma on immunotherapy-Patient on venclexta
-Patient on Darzalex, vencclexta
-when on chemo takes dexamethasone
-continue prophylactic acyclovir
Chemotherapy-induced neuropathy
-Continue gabapentin
Gout
-Continue allopurinol
Depression
-Continue Lamictal, risperidone
Full code
DVT prophylaxis�SCDs in setting of hemorrhagic shock
Anticipated Discharge: > 48 hours
Subjective/Interval History
-
Date of Service: August 10, 2023
Overnight remains with bradycardia and HR in mid 30s
pauses on tele noted
received HD catheter earlier today
Objective Data
-
Labs:
Laboratory Results
08/10/23
05:34
WBC 10.9 H
Hgb 7.6 L
Hct 22.5 L
Plt Count 136 D
Sodium 130 L
Potassium 5.3 H
Chloride 98
Carbon Dioxide 19 L
BUN 73 H
Creatinine 5.8 H*
Glucose 112 H
Calcium 8.1 L
Vital Signs:
Vital Signs
Temp Pulse Resp BP Pulse Ox
98.7 F 37 21 123/49 100
08/10/23 07:49 08/10/23 06:00 08/10/23 06:00 08/10/23 06:00 08/10/23 06:00
I&O
08/09/23 08/10/23 08/11/23
06:59 06:59 06:59
Intake Total 520 / 520 410 / 410
Output Total 260 / 265 215 / 215
Balance 260 / 255 195 / 195
Data Reviewed
-
Total Time Spent with Patient (in minutes): 55
[2023-08-10 11:07] LABS: Glomerular Base Membrane Ab 0 AU/mL (0-19); Myeloperoxidase Antibody 0 AU/mL (0-19); Serine Protease-3, IgG 0 AU/mL (0-19)
--- NOTE | 2023-08-10 11:22 | W.PN.CD ---
Today's Communication / Plan
-
Impression / Plan
-
Impression: 72M with left renal artery hemorrhage and resultant RP hematoma. Developed hypovolemia, hypotension, and OLIVIA on CKD to HD.We are called with significant bradycardia while on amiodarone
PMH: Parkinson's disease, CAD with stenting, HFpEF, HTN, multiple myeloma, and CKD3b. MRI was done in 2021 as we were concerned about amyloidosis. BM biopsy confirms the presence of amyloid protein. This is myeloma-related. Previously seen by Dr
Cirilo at [facility].
Plan
Bradycardia
- he seems asymptomatic and his BP is fine
- holding amiodarone
- continue tele
- hoping to avoid urgent PPM given his recent clinical issues
Bleeding
- s/p IR embolization and volume resuscitation
- Hb now 7.6
- I would use single agent AC (no ASA)if AC restarted
- he is at higher risk for stroke right now since his DCCV was recent, but he's had a life threatening bleed and Hb still on 7.6
HFmEF
- HD plans noted
- eventual GDMT as tolerated
CAD
- continue ezetimibe and statin
- recent decline in LVEF
HTN - stable
Dyslipidemia - statin
MM with cardiac involvement
OLIVIA
Parkinson's
Critically ill 34 minute used
Subjective: Dictated
Data:
����� ECHO in APR 2023 with EF 46%, global HK. No sig valve disease.
�������ECHO Dec 2022: EF 55%, MAC/mild MR, abnl strain c/w amyloid
�������Holter : DEC 2022: 48 hrs. Occ VPDs, no VT, rare supraventricular beats, no SVT. Mean HR 66 (35-96). Some Mobitz I AVB- SOB correlates with periods of Mobitz I AVB
�������Cardiac catheterization 08/26/2019: 30% mLAD, 20% in-stent stenosis OM 3, large OM 2 widely patent stent without restenosis, RCA with mild to moderate calcification 30% proximal stenosis, PDA focal 60% mid stenosis, with successful stenting of
80-90% OM 2 with FE
�������ECHO : EF 60-65%, mild to mod MR, PAs 35-40, aortic sclerosis
�������Lexiscan : perfusion normal . EF 45%.
Physical Exam
Vital Signs/Labs
Vital Signs
Temp Pulse Resp BP Pulse Ox
37.0 C 37 21 123/49 97
08/10/23 11:18 08/10/23 06:00 08/10/23 06:00 08/10/23 06:00 08/10/23 08:00
08/09/23 08/10/23 08/11/23
06:59 06:59 06:59
Actual Weight 197 lb 12.074 oz 198 lb 6.656 oz
08/10/23 05:34
08/10/23 05:34
PT 18.8 Sec (11.4-14.6) H 08/08/23 03:07
INR 1.60 08/08/23 03:07
APTT 43.3 Sec (23.4-35.0) H 08/08/23 03:07
Magnesium 2.1 mg/dl (1.6-2.3) 08/06/23 19:52
08/06/23
14:54
Yqz-Q-Damlzmxrgum Pept [id number]
Data Reviewed
-
Date of Service: August 10, 2023
--- NOTE | 2023-08-10 11:53 | W.PN.NEPH.PH ---
Today's Communication / Plan
-
HD
Assessment/Plan
-
IMP:
OLIVIA on CKD Stage 4 baseline cr 1.8-2.5
CAD with cardiac stents
Paroxysmal atrial fibrillation
Second-degree AV block Mobitz type 1
Heart failure with preserved ejection fraction
Hypotension
AL Amyloidosis
Multiple Myeloma
Left inferior renal artery bleed status postembolization 08/06/2023
Plan:
start HD today
temp HD CVC in [facility], Port also on right side
follow UOP
no vasculitis on serologic testing
critical care time 31 minutes
-
-
Date of Service: August 10, 2023
CC / HPI / ROS
-
Chief Complaint:
OLIVIA on CKD
History of Present Illness:
OLIVIA/Cr worse to 5.8
K up to 5.3
acidosis 19
BP stable
Hgb stable 7.6
critically ill in ICU
Review of Systems:
oliguric at this time
no CP/SOB
Labs
-
Labs:
WBC 10.9 10^3/uL (4.8-10.8) H 08/10/23 05:34
RBC 2.57 10^6/uL (4.70-6.10) L 08/10/23 05:34
Hgb 7.6 g/dL (13.0-18.0) L 08/10/23 05:34
Hct 22.5 % (39.0-52.0) L 08/10/23 05:34
Plt Count 136 10^3/uL (130-400) D 08/10/23 05:34
Sodium 130 mmol/L (135-145) L 08/10/23 05:34
Potassium 5.3 mmol/L (3.5-5.1) H 08/10/23 05:34
Chloride 98 mmol/L (98-107) 08/10/23 05:34
Carbon Dioxide 19 mmol/L (22-30) L 08/10/23 05:34
BUN 73 mg/dl (9-20) H 08/10/23 05:34
Creatinine 5.8 mg/dL (0.7-1.3) H* 08/10/23 05:34
eGFR 9.64 08/10/23 05:34
Glucose 112 mg/dl (70-99) H 08/10/23 05:34
Calcium 8.1 mg/dl (8.4-10.2) L 08/10/23 05:34
Phosphorus 5.0 mg/dl (2.5-4.5) H 08/06/23 19:52
Axu-S-Nikasilpqfx Pept [id number] pg/ml 08/06/23 14:54
Albumin 2.7 g/dl (3.5-5.0) L 08/07/23 04:14
Physical Exam
-
Vital Signs:
Vital Signs
Temp Pulse Resp BP Pulse Ox
98.6 F 43 22 142/73 100
08/10/23 11:18 08/10/23 11:00 08/10/23 11:00 08/10/23 11:00 08/10/23 11:00
Cardiovascular:: Regular rate and rhythm
Respiratory:: Bilateral: Coarse
Lung Excursion:: Normal
Abdomen:: Nontender and Soft
Bowel Sounds:: Normal
Extremity Edema:: None: Bilateral:
[2023-08-10] MEDS: MANNITOL 12.5 GRAMS IV ×2 (12:43→13:46)
--- NOTE | 2023-08-10 13:15 | CM ---
CM following re: discharge planning.
Discussed in rounds, reviewed pt' chart, met with pt.
per Rounds meeting, HD today and pt will need outpatient HD treatment. Also, pt is aware that PT and OT recommend SNF level of care. Pt expressed his agreement and pt requested a SNF in [place]. CM is developing options of SNF with HD onsite in [place].
Pt is requested outpatient HD treatment center in [place] [facility] because it is closest location to his house. [facility] outpatient HD treatment center preferred. Address: [address] [place] [address], [address], [place] [address]. A
referral to [facility] made with a request to set up outpatient HD treatment at [facility] in [place] [facility]. Preferred days: MWF, midday shift.
CM will fax a referral to SNFs in [place] [facility] area after the holiday.
D/c plan: SNF in [place] with outpatient HD treatment at [facility].
CM will follow to assist pt with discharge to a SNF in [place] with outpatient HD treatment.
[2023-08-10] MEDS: RETACRIT 4000 UNITS IV (13:46)
--- NOTE | 2023-08-10 14:40 | W.PN.NEPH.HD ---
Assessment
-
Seen on HD. no complaints. VSS, access temp CVC
Progress Note - Hemodialysis
-
Date of Service: August 10, 2023
Duration: 30 minutes and 2 hours
Potassium Bath: 2
Calcium Bath: 2.5
Opti-Dialyzer: 160
Ultrafiltration: Other (no)
Blood Flow: 250
Dialysate Flow: 600
Heparin: no
EPO: 4000 units
[2023-08-10] MEDS: HEPARIN 2500 UNITS INTRACATH (15:17)
--- NOTE | 2023-08-10 15:52 | PTCARENOTE ---
Patient received in AM with assessment as noted. Continues alert and oriented with a flat but cooperative affect. Sinus richard with HR in the 30-50's prior to HD and in the 50-60's post HD. Patient asymptomatic through out with stable B/P's. Lungs
decreased in bases bilaterally, slightly coarse through out. Sao2 97% on 2lnc. Hypo BS. Appetite poor. No bowel movement today. Continues oliguric with approx 15 ml/hr draining via Viera catheter. Temp HD catheter placed in I-rad this morning and he
had his first HD treatment starting at 1200. HD tolerated well. Patient currently in bed with call angelo and telephone in reach.
[2023-08-10 16:00] LABS: Hepatitis B Surface Antigen Negative (Negative)
[2023-08-10 16:17] LABS: Hepatitis B Core Ab, Total Negative (Negative); Hepatitis B Surface Antibody Positive; Hepatitis C Antibody Negative (Negative)
--- NOTE | 2023-08-10 20:45 | PTCARENOTE ---
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 assisted with repositioning, mouth care complete. dial draining adequate amt joyce yellow urine. POC discussed, call angelo with patient.
[2023-08-10] MEDS: HEPARIN 5000 UNITS SC (20:56)
[2023-08-10] MEDS: ZETIA 10 MG PO (20:57)
[2023-08-10] MEDS: RISPERDAL 0.25 MG PO (20:57)
--- NOTE | 2023-08-10 23:57 | PTCARENOTE ---
pt uncomfortable in bed, OOB to chair with assist x 1 and walker. new gown, new linens, no change in assessment.
[2023-08-11] VITALS (27 sets, daily range): BP systolic 119–164; BP diastolic 54–77; BMI 28.2
--- NOTE | 2023-08-11 04:00 | PTCARENOTE ---
no changes in pt assessment.
[2023-08-11] MEDS: TYLENOL PO ×3 (04:17→13:34)
[2023-08-11 04:45] LABS: % Basophils 0.3 % (0-2); % Immature Granulocytes 0.4 % (0-0.5); % Lymphocytes 3.7 % (20.5-51.1); % Monocytes 11.9 % (1.7-9.3); % Neutrophils 83.7 % (42.2-75.2); Absolute Lymphocytes 0.3 10^3/uL (1.2-3.4); Absolute Monocytes 0.9 10^3/uL (0.1-0.6); Absolute Neutrophils 6.3 10^3/uL (1.4-6.5); Hematocrit 22.5 % (39.0-52.0); Hemoglobin 7.4 g/dL (13.0-18.0); Mean Corp Hgb Conc. 32.9 g/dL (33.0-37.0); Mean Corpuscular Hgb 28.7 pg (27.0-31.0); Mean Corpuscular Volume 87.2 fL (80.0-94.0); Mean Platelet Volume 10.2 fL (7.4-10.4); Nucleated Red Blood Cells % 0.3 % (-); Platelet Count 138 10^3/uL (130-400); Red Blood Cell Count 2.58 10^6/uL (4.70-6.10); Red Cell Dist. Width 17.7 % (11.5-14.5); White Blood Cell Count 7.5 10^3/uL (4.8-10.8)
[2023-08-11 05:10] LABS: Blood Urea Nitrogen 52 mg/dl (9-20); Calcium 8.2 mg/dl (8.4-10.2); Carbon Dioxide 24 mmol/L (22-30); Chloride 99 mmol/L (98-107); Estimated Creatinine Clearance 17 ml/min; Glucose 99 mg/dl (70-99); Sodium 134 mmol/L (135-145); eGFR 15.52
--- NOTE | 2023-08-11 08:35 | W.PN.CD ---
Today's Communication / Plan
-
Agree with plans
Perhaps in 1-2 days resume lower dose Amio
Impression / Plan
-
72M with left renal artery hemorrhage and resultant RP hematoma. Developed hypovolemia, hypotension, and OLIVIA on CKD to HD.We are called with significant bradycardia while on amiodarone. PMH: Parkinson's disease, CAD with stenting, HFpEF, HTN,
multiple myeloma, and CKD3b. MRI was done in 2021 as we were concerned about amyloidosis. BM biopsy confirms the presence of amyloid protein. This is myeloma-related. Previously seen by Dr Kerr at [facility].
Bradycardia, asymptomatic
- holding amiodarone, may resume at lower dose in a few days
Bleeding
- s/p IR embolization and volume resuscitation
- Hb 7.6 => 7.4
- We would use single agent AC (no ASA) if AC restarted
- he is at higher risk for stroke right now since his DCCV (07/17/2023) was recent, but he's had a life threatening bleed
HFmEF
- HD plans noted
- eventual GDMT as tolerated
CAD
- continue ezetimibe and statin
- recent decline in LVEF
HTN - stable
Dyslipidemia - statin
MM with cardiac involvement
OLIVIA
Parkinson's
Critically ill 34 minute used
Subjective: No CP or dyspnea
Data:
����� ECHO in APR 2023 with EF 46%, global HK. No sig valve disease.
�������ECHO Dec 2022: EF 55%, MAC/mild MR, abnl strain c/w amyloid
�������Holter : DEC 2022: 48 hrs. Occ VPDs, no VT, rare supraventricular beats, no SVT. Mean HR 66 (35-96). Some Mobitz I AVB- SOB correlates with periods of Mobitz I AVB
�������Cardiac catheterization 08/26/2019: 30% mLAD, 20% in-stent stenosis OM 3, large OM 2 widely patent stent without restenosis, RCA with mild to moderate calcification 30% proximal stenosis, PDA focal 60% mid stenosis, with successful stenting of
80-90% OM 2 with FE
�������ECHO : EF 60-65%, mild to mod MR, PAs 35-40, aortic sclerosis
�������Lexiscan : perfusion normal . EF 45%.
Physical Exam
Vital Signs/Labs
Vital Signs
Temp Pulse Resp BP Pulse Ox
98.8 F 60 17 120/54 100
08/11/23 07:45 08/11/23 06:00 08/11/23 06:00 08/11/23 06:00 08/11/23 06:00
08/10/23 08/11/23 08/12/23
06:59 06:59 06:59
Actual Weight 90 kg 89.2 kg
08/11/23 04:11
08/11/23 04:10
PT 18.8 Sec (11.4-14.6) H 08/08/23 03:07
INR 1.60 08/08/23 03:07
APTT 43.3 Sec (23.4-35.0) H 08/08/23 03:07
Magnesium 2.1 mg/dl (1.6-2.3) 08/06/23 19:52
08/06/23
14:54
Ckk-Z-Lmbbebxkxna Pept [id number]
Physical Exam
Constitutional: No acute distress
EENT: Anicteric
Cardiovascular: Rhythm & rate is regular and Pedal edema is absent
Respiratory: Respiratory effort normal and Lungs clear to auscul.
GI: Soft, Distention absent and Non tender
Neuro/Psych: Alert and Motor deficits absent
Data Reviewed
-
Date of Service: August 11, 2023
[2023-08-11] MEDS: CRESTOR 10 MG PO (09:06)
[2023-08-11] MEDS: ZYLOPRIM 100 MG PO (09:06)
[2023-08-11] MEDS: ZOVIRAX 200 MG PO ×2 (09:06→21:12)
[2023-08-11] MEDS: SENOKOT 17.1999999999999993 MG PO ×2 (09:06→21:12)
[2023-08-11] MEDS: COLACE 100 MG PO ×2 (09:06→21:12)
[2023-08-11] MEDS: MIRALAX 17 GRAMS PO (09:06)
[2023-08-11] MEDS: LAMICTAL 100 MG PO ×2 (09:06→21:15)
[2023-08-11] MEDS: HEPARIN 5000 UNITS SC ×3 (09:07→23:37)
[2023-08-11] MEDS: NON-FORMULARY ITEM 2 MG PO (09:07)
--- NOTE | 2023-08-11 09:43 | W.PN.INTV ---
Today's Communication / Plan
Recommendations
OLIVIA worsening, renal following for further recs ---> started HD yesterday and for 2nd session today
He is making urine which is encouraging
Continue HSQ and raise to q8hr from q12hr - continue to trend Hb
Eventually resume Eliquis if Hb is stable
Hold amio for bradycardia, cardiology on board - recs appreciated
PT/OT
Patient is stable for transfer out of ICU to telemetry. Senior Quality Analyst/Pulmonary service will now sign off. Please reconsult if there are any additional questions/concerns, or if patient's respiratory status deteriorates.
Assessment
-
72 year old M with history of MM, amyloid, CHF presenting this AM with acute on set SOB and presyncope. Then developed acute onset L sided flank pain 11/26. He recently underwent cardioversion for Afib 07/17/23, placed on lasix for fluid retention.
In ER, notably pale. CBC showing anemia, Hb 6.1 (last Hb 9.4 on 08/01/23). INR 2.51. CT AP showing acute retroperitoneal hematoma likely from L kidney. On Eliquis for AFib. Of note, proBNP 11,200 on admission, he is hypotensive presumably from
volume loss and placed on levophed.
Impression:
Acute hypovolemic shock on pressors - shock state now resolved
Acute L sided retroperitoneal hemorrhage (perinephric seen on CTA abd/pelvis from 08/06/2023)
L RP hemorrhage s/p IR coil embolization 08/06/23
Acute coagulopathy
Acute HFpEF exacerbation with bilateral pleural effusions (L>R)
Acute blood loss anemia - stabilized
Bradycardia, possible 1st deg - HR now normal range
OLIVIA on CKD now on trial of HD since 08/10/2023
Right sided renal stone (non-obstructive)
Acute respiratory failure with hypoxia on supplemental oxygen
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
Coronary artery disease s/p Cardiac stents x 2010
Atrial fibrillation s/p CV
Stage 3b chronic kidney disease
HTN
Chronic HF pEF
HLD
COPD --moderate obstruction PFT 2020/moderately severe restriction/moderate diffusion impairment
Pleural effusion s/p L thora 04/16/23 and 04/05/23- 1200mL and 1000mL of yellow pleural fluid.
Left knee torn meniscus s/p arthroscopic repair 2000
Torn rotator cuff x 3 97, 98, 2000
Hernia repair
B/l knees replaced 2010 with revisions 2012
MM Follows with Dr Crocker on Darzalex for treatment
Former smoker, 30+ pack years
Plan
No current signs of metabolic encephalopathy or MS changes/following commands
Hemodynamically stable, s/p levophed --now off and he is tolerating HD
Cardiac history reviewed--HTN, HFpEF, Afib s/p CV, on lasix at home
On Eliquis--hold
Prior ECHO reviewed indicating reduced EF in past
Hold home meds while hypotensive � resume when possible
May need repeat ECHO, although recent TTE from 07/17/2023 showed mild�moderate MR with normal biventricular size/function without regional WMA
Bradycardia now improved - cardiology consulted and recs appreciated
Holding amio � will resume in a few days as per cardiology
Maintain SpO2 >90-94%
Prior history of lung disease: none per patient, former smoker
PFT from 2020 suggesting COPD due to asthma (given correction of low DLco with DLco/VA of 92%)
History of pleural effusions s/p thora x 2 of transudative fluid
Supplemental O2 as indicated to maintain sats > 89%
CXR/CT reviewed indicating pleural effusions
CT CAP showing acute left perinephric bleed
CKD stage III -- creat at baseline, mid 2s --> started HD on 08/09 s/p non-tunneled temporary HD catheter placement by IR
OLIVIA worsened creat 3.8 -> 4.9 with oliguria/anuria --> Cr now improving (3.9 today with BUN 52)
Renal following - appreciate recs
Follow urine output, I/Os
Replete electrolytes as needed
Not on abx, no fever
Follow fever trend, WBC count
Continue to observe off abx for now
MM history, known to [place]
Heme consulted
CBC reviewed, acute anemia from intra-abd bleeding
INR at 2 w/ coagulopathy
Received total of 4 units since 08/05, if ongoing anemia is noted, may need repeat imaging
DVT prophylaxis as assessed based on risk, including mechanical SCDs - on 08/09 I started HSQ 5000 q12hr; continue to trend Hb and raise to q8hr tomorrow to see if he tolerates this and if Hb remains stable; if Hb remain stable after another 1-2 days
then would cautiously transition to Eliquis but hold ASA, as per cardiology
Can transfuse if indicated for Hb <7, plt < 10--transfusion based on antibody screening
Hold home MM meds, resume chronic PO steroids when able
No prior h/o diabetes or thyroid disease
Patient is stable for transfer out of ICU to telemetry. Senior Quality Analyst/Pulmonary service will now sign off. Thank you for allowing us to be involved in the care of this patient. Please reconsult if there are any additional questions/concerns, or if
patient's respiratory status deteriorates.
Total time spent today was 35 minutes for this encounter. Time includes reviewing laboratory test/imaging results, reviewing pertinent medical records, obtaining and reviewing medical history, performing an appropriate exam, ordering medications,
tests and procedures. Time also includes documentation of this encounter, coordinating patient care and communicating with other healthcare professionals. Total time does not include separately billed tests performed on this date of service.
Diagnostic Data
Chest X-Ray: 08/06/23- Low lung volumes with small left pleural effusion and left basilar atelectasis.
08/01/23- Bilateral small pleural effusions and adjacent atelectasis, left greater than right. Unchanged on the left and slightly improved on the right as compared with prior.
CT Scan:
Echo: 04/23/23- Moderate concentric left ventricular hypertrophy. Mildly reduced left ventricular systolic function. Left ventricular ejection fraction is 46%, by Zavala' s method. GLS Endo peak avg.= -6.4 %. Normal right ventricular size and
function. Right ventricular hypertrophy. No significant valvular disease. Compared to previous echo 01/09/23, the ejection fraction had decreased from normal to mildly decreased. Once again GLS and e' are decreased.
PFT's: 05/18/20: FEV1 1.74L 52%, FVC 2.58L 57%, ratio 68 post FEV1 1.79L 54%. TLC 4.25L 58%, DLCO 50%
Reports and relevant images were personally reviewed.
Subjective Dataa
Subjective Data
Date of Service:
Date of Service: August 11, 2023
Chief Complaint: Senior Quality Analyst Follow Up
Subjective:
Seen today at bedside. Getting HD this morning. Currently on 2 L/min nasal cannula. He feels well. Heart rate 62, SpO2 100% and BP 136/60. No acute events reported from overnight. He denies headache, abdominal pain, fevers or chills.
Review of Systems
General: Other (Negative unless mentioned above)
Objective Data
Data Reviewed
Vital Signs / I&O / Oxygen:
Vital Signs
Temp Pulse Resp BP Pulse Ox
98.8 F 61 17 127/64 100
08/11/23 07:45 08/11/23 09:00 08/11/23 09:00 08/11/23 09:00 08/11/23 09:00
Intake and Output
08/10/23 08/11/23 08/12/23
06:59 06:59 06:59
Intake Total 410 / 410 210 / 210 240 / 240
Output Total 215 / 230 815 / 815 110 / 110
Balance 195 / 180 -605 / -605 130 / 130
SaO2 100
Nasal Cannula flow liters per 2
minute
Physical Exam
General: Comfortable and Other (NAD)
HEENT: Normocephalic, Anicteric and Moist Mucous Membranes
Cardiovascular: S1-S2 and Other (PORT in R chest)
Respiratory: Clear, Wheeze (n), Crackles (n), Rhonchi (n) and Non-Labored Respirations
GI: Soft, Non Distended, Non Tender and Normal Bowel Sounds
Neurology: AO x 3 and No Motor Deficits
Skin: Warm and Dry
Labs/Micro/Reports
Lab Data
08/11/23 04:11
08/11/23 04:10
--- NOTE | 2023-08-11 11:23 | W.PN.HOSP.TC ---
Addendum entered and electronically signed by Edi Garcia MD 08/11/23 11:39:
Abnormal lab value
Original Note:
Today's Communication/Plan
-
Repeat HD session today
Trend hemoglobin
Monitor diet tolerance
Transfuse as needed
Monitor heart rate
PT/OT
Assessment / Plan
Assessment / Plan
General: Well Developed, Well Nourished and No Apparent Distress
HEENT: NormoCephalic, Moist mucous membranes and Atraumatic
Respiratory: Clear, R chest wall port noted
Cardiac: S1/S2, irregularly irregular no Murmur or Rub, RIJ HD catheter noted
GI: Soft, Non Tender, Non Distended and Normal Bowel Sounds; No Organomegaly
Rectal: Deferred by Provider
Musculoskeletal: No Clubbing, No Cyanosis and No Edema
Skin: No Rash
Neuro: Nonfocal/grossly intact
#Hypovolemic/Hemorrhagic shock
#Acute blood loss anemia secondary to retroperitoneal hemorrhage
#Left renal artery extravasation status post embolization
-Status post 4 units of PRBC and hemoglobin 7.6 Repeat/trend hemoglobin
-Hold aspirin, Eliquis
-Kcentra given to reverse Eliquis
-Hold Lasix, metolazone
-Hold antihypertensives
-off levophed now. Goal MAP >65 and if needed restart levophed.
-Status post arteriogram with finding of large arterial active bleeding in the multiple left kidney status post embolization using coil and Gelfoam. Arteriogram showed many microaneurysm of the left kidney raising concern for vasculitis. ? Risk
factor due to multiple myeloma
-will ask Onc for input-Per oncology patient with amyloid angiopathy most likely etiology of active arterial bleeding
-Autoimmune workup started however seems likely secondary to amyloid angiopathy. INDIO negative. Complements C3 elevated C4 normal. ANCA panel negative.
-Transfuse for hemoglobin less than 7 per oncology.
OLIVIA on CKD 4
-some degree of creatinine to be elevated with contrast exposure, active arterial bleeding, hypertension, embolization of renal artery
-Probnp elevated and on high dose diuretics
-Monitor urinary output
-s/p IVF. Cr continue to uptrend with minimal urinary output. Creatinine 5.8 today
-Status post HD catheter placement on 08/09 and now started on hemodialysis. Monitor hemodynamics closely as new to HD.
#Mild acute thrombocytopenia
-trend Plt for now. Platelet stabilizing at 138 K now
-If with severe drop will need transfusion
# Hypokalemia
-Replete potassium
Paroxysmal atrial fibrillation with bradycardia
-Amiodarone on hold. Will ask cardiology for input.
-Holding Eliquis in the setting of active arterial bleed admitted to be held for at least 2 weeks
-Pt understands risk of restarting Eliquis in setting of amyloid angiopathy and hemorrhagic shock in future vs. benefit of prevention of CVA. Pt agreeable to continue to hold Eliquis
CAD status post stents
-Hold aspirin
-Hold isosorbide mononitrate
Normal ischemic myocardial injury in the setting of CKD/CAD
-Troponin level chronically elevated
Chronic HFrEF
-Hold metolazone, Lasix
Essential hypertension
-Hold hydralazine. Blood pressure should improve with HD and volume removal if he can tolerate it as now on the softer side.
Hypercholesterolemia
-Continue statin
History of recurrent left pleural effusion
Amyloidosis
Multiple myeloma on immunotherapy-Patient on venclexta
-Patient on Darzalex, vencclexta
-when on chemo takes dexamethasone
-continue prophylactic acyclovir
Chemotherapy-induced neuropathy
-Continue gabapentin
Gout
-Continue allopurinol
Depression
-Continue Lamictal, risperidone
Full code
DVT prophylaxis�SCDs in setting of hemorrhagic shock
Anticipated Discharge: > 48 hours
Subjective/Interval History
-
Date of Service: August 11, 2023
Tolerating diet
Remains with intermittent flank pain
Improvement in urinary output
Tolerated HD yesterday
Objective Data
-
Labs:
Laboratory Results
08/11/23 08/11/23
04:10 04:11
WBC 7.5
Hgb 7.4 L
Hct 22.5 L
Plt Count 138
Sodium 134 L
Potassium 4.0
Chloride 99
Carbon Dioxide 24
BUN 52 H
Creatinine 3.9 H
Glucose 99
Calcium 8.2 L
Vital Signs:
Vital Signs
Temp Pulse Resp BP Pulse Ox
98.6 F 61 17 127/64 100
08/11/23 11:21 08/11/23 09:00 08/11/23 09:00 08/11/23 09:00 08/11/23 09:00
I&O
08/10/23 08/11/23 08/12/23
06:59 06:59 06:59
Intake Total 410 / 410 210 / 210 360 / 360
Output Total 215 / 230 815 / 815 110 / 110
Balance 195 / 180 -605 / -605 250 / 250
Data Reviewed
-
Total Time Spent with Patient (in minutes): 56
--- NOTE | 2023-08-11 13:00 | PTCARENOTE ---
On HD at this time. Pt offers no complaints. All assessments unchanged.
[2023-08-11] MEDS: MANNITOL 12.5 GRAMS IV ×2 (13:20→14:30)
--- NOTE | 2023-08-11 13:26 | W.PN.NEPH.HD ---
Assessment
-
Seen on HD. no new complaints. VSS, access ok
nonoliguric, HD tomorrow
Progress Note - Hemodialysis
-
Date of Service: August 11, 2023
Duration: 3 hours
Potassium Bath: 2
Calcium Bath: 2.5
Opti-Dialyzer: 160
Ultrafiltration: Other (no)
Dialysate Flow: 600
Heparin: no
EPO: 4000 units
[2023-08-11] MEDS: HEPARIN 2500 UNITS INTRACATH (15:56)
[2023-08-11] MEDS: MANNITOL IV (17:48)
--- NOTE | 2023-08-11 17:56 | PTCARENOTE ---
Received this pt from ICU with RN at bedside, 2Lo2 in place, pt ambulated with assistance to the bed, VSS, pt resting comfortably in bed at this time.
[2023-08-11] MEDS: RISPERDAL 0.25 MG PO (21:15)
[2023-08-11] MEDS: ZETIA 10 MG PO (21:16)
[2023-08-11] MEDS: ROXICODONE 5 MG PO (21:24)
[2023-08-12] VITALS (8 sets, daily range): BP systolic 132–174; BP diastolic 54–89; BMI 28.2
[2023-08-12 04:43] LABS: % Basophils 0.3 % (0-2); % Immature Granulocytes 0.2 % (0-0.5); % Lymphocytes 4.3 % (20.5-51.1); % Neutrophils 83.2 % (42.2-75.2); Absolute Lymphocytes 0.3 10^3/uL (1.2-3.4); Absolute Monocytes 0.7 10^3/uL (0.1-0.6); Absolute Neutrophils 4.9 10^3/uL (1.4-6.5); Hematocrit 21.9 % (39.0-52.0); Hemoglobin 7.2 g/dL (13.0-18.0); Mean Corp Hgb Conc. 32.9 g/dL (33.0-37.0); Mean Corpuscular Hgb 29.1 pg (27.0-31.0); Mean Corpuscular Volume 88.7 fL (80.0-94.0); Mean Platelet Volume 9.7 fL (7.4-10.4); Nucleated Red Blood Cells % 0.7 % (-); Platelet Count 127 10^3/uL (130-400); Red Blood Cell Count 2.47 10^6/uL (4.70-6.10); Red Cell Dist. Width 17.5 % (11.5-14.5); White Blood Cell Count 5.8 10^3/uL (4.8-10.8)
[2023-08-12 05:11] LABS: Blood Urea Nitrogen 32 mg/dl (9-20); Calcium 8.1 mg/dl (8.4-10.2); Carbon Dioxide 27 mmol/L (22-30); Chloride 101 mmol/L (98-107); Estimated Creatinine Clearance 25 ml/min; Glucose 94 mg/dl (70-99); Magnesium 2.2 mg/dl (1.6-2.3); Phosphorus 3.3 mg/dl (2.5-4.5); Potassium 3.9 mmol/L (3.5-5.1); Sodium 136 mmol/L (135-145); eGFR 24.13
[2023-08-12] MEDS: ROXICODONE 5 MG PO ×2 (05:41→21:04)
[2023-08-12] MEDS: DESENEX/MITRAZOL/ZEASORB 1 APPLIC TOPICAL ×2 (05:42→20:22)
[2023-08-12] MEDS: MIRALAX 17 GRAMS PO (08:19)
[2023-08-12] MEDS: ZYLOPRIM 100 MG PO (08:19)
[2023-08-12] MEDS: HEPARIN 5000 UNITS SC ×2 (08:20→17:00)
[2023-08-12] MEDS: CRESTOR 10 MG PO (08:20)
[2023-08-12] MEDS: SENOKOT 17.1999999999999993 MG PO (08:20)
[2023-08-12] MEDS: COLACE 100 MG PO (08:20)
[2023-08-12] MEDS: ZOVIRAX 200 MG PO ×2 (08:20→20:20)
[2023-08-12] MEDS: LAMICTAL 100 MG PO ×2 (08:20→20:29)
[2023-08-12] MEDS: MANNITOL 12.5 GRAMS IV ×2 (08:25→10:20)
[2023-08-12] MEDS: RETACRIT 6000 UNITS IV (09:29)
--- NOTE | 2023-08-12 09:46 | W.PN.CD ---
Today's Communication / Plan
-
EKG tomorrow
Restart amio at lower dose
Impression / Plan
-
72M with left renal artery hemorrhage and resultant RP hematoma. Developed hypovolemia, hypotension, and OLIVIA on CKD to HD.We are called with significant bradycardia while on amiodarone. PMH: Parkinson's disease, CAD with stenting, HFpEF, HTN,
multiple myeloma, and CKD3b. MRI was done in 2021 as we were concerned about amyloidosis. BM biopsy confirms the presence of amyloid protein. This is myeloma-related. Previously seen by Dr Kerr at [facility].
Bradycardia, asymptomatic
- Improved
- Tele hard to be sure of rhythm, his P waves are so small
- Will restart Amio, was on 100 mg daily => will go to Amio 200 mg tabs (100 mg tabs are expensive and hard to obtain at times) 1/2 tab (100 mg) on SuTuThSa
Bleeding
- s/p IR embolization and volume resuscitation
- Hb 7.6 => 7.4 => 7.2
- We would use single agent AC (no ASA) if AC restarted
- he is at higher risk for stroke right now since his DCCV (07/17/2023) was recent, but he's had a life threatening bleed
HFmidrangeEF
- HD plans noted
- eventual GDMT as tolerated (limited in ESRD)
CAD
- continue ezetimibe and statin
- recent decline in LVEF
HTN - stable
Dyslipidemia - statin
MM with cardiac involvement
OLIVIA
Parkinson's
Critically ill 34 minute used
Subjective: No CP or dyspnea
Data:
����� ECHO in APR 2023 with EF 46%, global HK. No sig valve disease.
�������ECHO Dec 2022: EF 55%, MAC/mild MR, abnl strain c/w amyloid
�������Holter : DEC 2022: 48 hrs. Occ VPDs, no VT, rare supraventricular beats, no SVT. Mean HR 66 (35-96). Some Mobitz I AVB- SOB correlates with periods of Mobitz I AVB
�������Cardiac catheterization 08/26/2019: 30% mLAD, 20% in-stent stenosis OM 3, large OM 2 widely patent stent without restenosis, RCA with mild to moderate calcification 30% proximal stenosis, PDA focal 60% mid stenosis, with successful stenting of
80-90% OM 2 with FE
�������ECHO : EF 60-65%, mild to mod MR, PAs 35-40, aortic sclerosis
�������Lexiscan : perfusion normal . EF 45%.
Physical Exam
Vital Signs/Labs
Vital Signs
Temp Pulse Resp BP Pulse Ox
98.7 F 68 12 135/54 99
08/12/23 07:10 08/12/23 07:10 08/12/23 07:10 08/12/23 07:10 08/12/23 07:10
08/11/23 08/12/23 08/13/23
06:59 06:59 06:59
Actual Weight 89.2 kg 88.995 kg
08/12/23 04:21
08/12/23 04:21
PT 18.8 Sec (11.4-14.6) H 08/08/23 03:07
INR 1.60 08/08/23 03:07
APTT 43.3 Sec (23.4-35.0) H 08/08/23 03:07
Magnesium 2.2 mg/dl (1.6-2.3) 08/12/23 04:21
08/06/23
14:54
Tpf-[id number] Pept [id number]
Physical Exam
Constitutional: No acute distress
Cardiovascular: Rhythm & rate is regular and Pedal edema is absent
Respiratory: Respiratory effort normal
GI: Soft and Distention absent
Data Reviewed
-
Date of Service: August 12, 2023
--- NOTE | 2023-08-12 10:11 | W.PN.HOSP.TC ---
Today's Communication/Plan
-
Trend h/h
monitor urinary output
PT/OT
Amio
monitor on tele
Assessment / Plan
Assessment / Plan
General: Well Developed, Well Nourished and No Apparent Distress
HEENT: NormoCephalic, Moist mucous membranes and Atraumatic
Respiratory: Clear, R chest wall port noted
Cardiac: S1/S2, irregularly irregular no Murmur or Rub, RIJ HD catheter noted
GI: Soft, Non Tender, Non Distended and Normal Bowel Sounds; No Organomegaly
Rectal: Deferred by Provider
Musculoskeletal: No Clubbing, No Cyanosis and No Edema
Skin: No Rash
Neuro: Nonfocal/grossly intact
#Hypovolemic/Hemorrhagic shock
#Acute blood loss anemia secondary to retroperitoneal hemorrhage
#Left renal artery extravasation status post embolization
-Status post 4 units of PRBC and hemoglobin 7.2 Repeat/trend hemoglobin
-Hold aspirin, Eliquis
-Kcentra given to reverse Eliquis
-Hold Lasix, metolazone
-Hold antihypertensives
-off levophed now. Goal MAP >65 and if needed restart levophed.
-Status post arteriogram with finding of large arterial active bleeding in the multiple left kidney status post embolization using coil and Gelfoam. Arteriogram showed many microaneurysm of the left kidney raising concern for vasculitis. ? Risk
factor due to multiple myeloma
-will ask Onc for input-Per oncology patient with amyloid angiopathy most likely etiology of active arterial bleeding
-Autoimmune workup started however seems likely secondary to amyloid angiopathy. INDIO negative. Complements C3 elevated C4 normal. ANCA panel negative.
-Transfuse for hemoglobin less than 7 per oncology.
OLIVIA on CKD 4
-some degree of creatinine to be elevated with contrast exposure, active arterial bleeding, hypertension, embolization of renal artery
-Probnp elevated and was on high dose diuretics as OP.
-Monitor urinary output
-s/p IVF. Cr continue to uptrend with minimal urinary output.
-Status post HD catheter placement on 08/09 and now started on hemodialysis. Monitor hemodynamics closely as new to HD.
#Mild acute thrombocytopenia
-trend Plt for now.
-If with severe drop will need transfusion
# Hypokalemia
-Replete potassium
Paroxysmal atrial fibrillation with bradycardia
-Amiodarone on hold. Will ask cardiology for input.
-Holding Eliquis in the setting of active arterial bleed admitted to be held for at least 2 weeks
-Plan to restart amiodarone at lower dose 100mg QID weekly per EP.
-Pt understands risk of restarting Eliquis in setting of amyloid angiopathy and hemorrhagic shock in future vs. benefit of prevention of CVA. Pt agreeable to continue to hold Eliquis
CAD status post stents
-Hold aspirin
-Hold isosorbide mononitrate
Normal ischemic myocardial injury in the setting of CKD/CAD
-Troponin level chronically elevated
Chronic HFrEF
-Hold metolazone, Lasix
Essential hypertension
-Hold hydralazine. Blood pressure should improve with HD and volume removal if he can tolerate it as now on the softer side.
Hypercholesterolemia
-Continue statin
History of recurrent left pleural effusion
Amyloidosis
Multiple myeloma on immunotherapy-Patient on venclexta
-Patient on Darzalex, vencclexta
-when on chemo takes dexamethasone
-continue prophylactic acyclovir
Chemotherapy-induced neuropathy
-Continue gabapentin
Gout
-Continue allopurinol
Depression
-Continue Lamictal, risperidone
Full code
DVT prophylaxis�SCDs in setting of hemorrhagic shock
Anticipated Discharge: > 48 hours
Subjective/Interval History
-
Date of Service: August 12, 2023
Tolerating HD so far
Objective Data
-
Labs:
Laboratory Results
08/12/23
04:21
WBC 5.8
Hgb 7.2 L
Hct 21.9 L
Plt Count 127 L
Sodium 136
Potassium 3.9
Chloride 101
Carbon Dioxide 27
BUN 32 H
Creatinine 2.7 H
Glucose 94
Calcium 8.1 L
Vital Signs:
Vital Signs
Temp Pulse Resp BP Pulse Ox
98.7 F 68 12 135/54 99
08/12/23 07:10 08/12/23 07:10 08/12/23 07:10 08/12/23 07:10 08/12/23 07:10
I&O
08/11/23 08/12/23 08/13/23
06:59 06:59 06:59
Intake Total 210 / 210 960 / 960
Output Total 815 / 815 700 / 700
Balance -605 / -605 260 / 260
Data Reviewed
-
Total Time Spent with Patient (in minutes): 55
--- NOTE | 2023-08-12 11:25 | W.PN.NEPH.HD ---
Assessment
-
Seen on HD. no complaints. VSS, access temp. nonologiuric. possible recovery
Progress Note - Hemodialysis
-
Date of Service: August 12, 2023
Duration: 15 minutes and 3 hours
Potassium Bath: 3
Calcium Bath: 2.5
Opti-Dialyzer: 160
Ultrafiltration: Other (no)
Blood Flow: 400
Dialysate Flow: 600
Heparin: no
EPO: 6000 units
[2023-08-12] MEDS: HEPARIN 2500 UNITS INTRACATH (11:28)
--- NOTE | 2023-08-12 11:43 | W.PN.URO.CBU ---
Today's Communication / Plan
-
Urologically stable
Assessment / Plan
-
72M with afib, CAD on Eliquis with hemorrhagic shock, spontaneous left renal hemorrhage
s/p successful selective embolization of L renal artery branch by IR 08/05
- HGB stabilized >96 hrs s/p transfusion 4 units PRBCs
- Okay to resume OOB/activity
- Trend renal function - multifactorial OLIVIA from contrast, pressors, as well as impact of partial L kidney embolization. Possible HD per nephrology
- Hold anticoagulation at least 14 days post embolization. Given the presence of multiple other small renal artery aneurysms seen on arteriogram, consideration should be given to permanently discontinuing AC for risk of recurrent life threatening
bleed
Diagnosis
-
Date of Service: August 12, 2023
-
Patient Diagnosis:
Spontaneous retroperitoneal hemorrhage
s/p IR selective coil embolization of accessory renal artery 08/05
Renal failure: non-oliguric
Subjective
-
Comfortable
No significant left flank pain
Objective
-
Vital Signs
Temp Pulse Resp BP Pulse Ox
98.7 F 68 12 135/54 99
08/12/23 07:10 08/12/23 07:10 08/12/23 07:10 08/12/23 07:10 08/12/23 07:10
Intake and Output
08/11/23 08/12/23 08/13/23
06:59 06:59 06:59
Intake Total 210 / 210 960 / 960
Output Total 815 / 815 700 / 700
Balance -605 / -605 260 / 260
Intake:
Oral fluids 210 / 210 960 / 960
Output:
Urine, Viera 815 / 815 700 / 700
Laboratory Results
08/12/23 04:21
08/12/23 04:21
Review of Systems
-
Constitutional: Fatigue
Respiratory: No Symptoms
Cardiac: No Symptoms
Physical Exam
-
General - well nourished, no acute distress
Abdomen - soft, non-tender, stable/diminished left flank hematoma
Genitalia - Viera draining clear urine
[2023-08-12] MEDS: PACERONE 100 MG PO (12:34)
[2023-08-12] MEDS: NON-FORMULARY ITEM 100 MG PO (12:35)
[2023-08-12] MEDS: ROXICODONE 2.5 MG PO ×2 (18:05→23:10)
[2023-08-12] MEDS: DILAUDID 0.5 MG IV ×3 (20:13→23:09)
[2023-08-12] MEDS: SENOKOT PO ×2 (20:20→20:21)
[2023-08-12] MEDS: COLACE PO ×2 (20:20→20:21)
[2023-08-12] MEDS: TIGAN 200 MG IM (20:35)
--- NOTE | 2023-08-12 21:15 | PTCARENOTE ---
Addendum entered by Mela Avendaño RN 08/13/23 05:48:
Pt made NPO as per VOCATIONAL EVALUATOR order.
Original Note:
Pt c/o pain 10/10 from L flank despite IV dilaudid and Roxycodone 5mg given. Also, some distention and tenderness noted from area in comparison with assessment done at beginning of shift. Pt c/o nausea, Tigan IM given at 2030, with short lasting
effect. scallop raker VOCATIONAL EVALUATOR made aware, at the bedside to assess pt. Stat CT abd ordered. VS 166/68, 73, T-99.3, RR 22, Pox 100% 1L
--- NOTE | 2023-08-12 21:42 | W.PN.UPDATE ---
Addendum entered and electronically signed by JASMYN Clay 08/13/23 02:41:
Patient continues with L side discomfort which is more diffuse and intermittent. He is able to fall asleep. CT report shows extravasation previously noted on prior films but also smaller areas of bleeding. Hgb remains the same from this morning
7.2. VSS also stable.
Original Note:
Update Note
Progress Note Update
Nursing notified me patient is extremely uncomfortable this evening with abdominal distention and left lateral abdominal pain he states is similar to his previous discomfort on admission. Area is tender to palpation. Normal regimen of narcotics is
not alleviating symptoms. He did have a large documented bm today. CT angio abd pelvis ordered stat. VSS.
[2023-08-12] MEDS: OFIRMEV 100 IV (21:55)
[2023-08-12] MEDS: COMPAZINE 10 MG IV (23:10)
[2023-08-12] MEDS: ZETIA 10 MG PO (23:12)
[2023-08-12] MEDS: RISPERDAL 0.25 MG PO (23:12)
[2023-08-12 23:54] LABS: Hematocrit 21.5 % (39.0-52.0); Hemoglobin 7.2 g/dL (13.0-18.0)
[2023-08-13] VITALS (10 sets, daily range): BP systolic 92–156; BP diastolic 42–73; BMI 28.3
[2023-08-13] MEDS: HEPARIN SC ×3 (00:17→17:05)
[2023-08-13] MEDS: DILAUDID 0.5 MG IV ×4 (00:50→16:33)
[2023-08-13] MEDS: ROXICODONE 5 MG PO ×3 (02:51→14:39)
[2023-08-13] MEDS: TIGAN 200 MG IM (02:58)
[2023-08-13] MEDS: ROXICODONE 2.5 MG PO (04:29)
[2023-08-13 05:24] LABS: % Basophils 0.3 % (0-2); % Immature Granulocytes 0.4 % (0-0.5); % Lymphocytes 1.3 % (20.5-51.1); % Monocytes 9.8 % (1.7-9.3); % Neutrophils 88.2 % (42.2-75.2); Absolute Immature Granulocytes 0.1 10^3/uL (0-0.05); Absolute Lymphocytes 0.2 10^3/uL (1.2-3.4); Absolute Monocytes 1.1 10^3/uL (0.1-0.6); Hematocrit 21.9 % (39.0-52.0); Hemoglobin 7.2 g/dL (13.0-18.0); Mean Corp Hgb Conc. 32.9 g/dL (33.0-37.0); Mean Corpuscular Hgb 29.1 pg (27.0-31.0); Mean Corpuscular Volume 88.7 fL (80.0-94.0); Mean Platelet Volume 10.1 fL (7.4-10.4); Nucleated Red Blood Cells % 0.5 % (-); Platelet Count 136 10^3/uL (130-400); Red Blood Cell Count 2.47 10^6/uL (4.70-6.10); Red Cell Dist. Width 17.5 % (11.5-14.5); White Blood Cell Count 11.4 10^3/uL (4.8-10.8)
[2023-08-13 06:05] LABS: Blood Urea Nitrogen 24 mg/dl (9-20); Calcium 8.1 mg/dl (8.4-10.2); Carbon Dioxide 28 mmol/L (22-30); Chloride 100 mmol/L (98-107); Estimated Creatinine Clearance 31 ml/min; Glucose 124 mg/dl (70-99); Potassium 4.2 mmol/L (3.5-5.1); Sodium 136 mmol/L (135-145); eGFR 30.85
[2023-08-13] MEDS: DESENEX/MITRAZOL/ZEASORB 1 APPLIC TOPICAL ×2 (09:02→22:54)
[2023-08-13] MEDS: MIRALAX PO (09:03)
[2023-08-13] MEDS: SENOKOT PO ×2 (09:03→20:10)
[2023-08-13] MEDS: COLACE PO ×2 (09:03→20:10)
--- NOTE | 2023-08-13 09:27 | W.PN.HOSP.TC ---
Addendum entered and electronically signed by Edi Garcia MD 08/13/23 12:16:
Reevaluate the patient while in the IMU. Currently comfortable. Was evaluated by urology. Plan is for symptomatic management with blood transfusion and to hold off on IR embolization. Discussed with interventional radiology and urology. Hoping
for left RP hemorrhage to tamponade to prevent further embolization as the next target would be to be left renal artery. Urology correspondence noted. Currently blood pressure has been stable. Plan for hemodialysis tomorrow.
Original Note:
Today's Communication/Plan
-
NPO for IRAD procedure
transfuse 1u PRBC
Tx to IMU-watch hemodynamics closely
Assessment / Plan
Assessment / Plan
General: Well Developed, Well Nourished and No Apparent Distress
HEENT: NormoCephalic, Moist mucous membranes and Atraumatic
Respiratory: Clear, R chest wall port noted
Cardiac: S1/S2, irregularly irregular no Murmur or Rub, RIJ HD catheter noted
GI: Soft, Non Tender, Non Distended and Normal Bowel Sounds; No Organomegaly
Rectal: Deferred by Provider
Musculoskeletal: No Clubbing, No Cyanosis and No Edema
Skin: No Rash
Neuro: Nonfocal/grossly intact
#Hypovolemic/Hemorrhagic shock
#Acute blood loss anemia secondary to retroperitoneal hemorrhage
#Left renal artery extravasation status post embolization
-Status post 4 units of PRBC and hemoglobin 7.2 Repeat/trend hemoglobin
-Hold aspirin, Eliquis
-Kcentra given to reverse Eliquis
-Hold Lasix, metolazone
-Hold antihypertensives
-off levophed now. Goal MAP >65 and if needed restart levophed.
-Status post arteriogram with finding of large arterial active bleeding in the multiple left kidney status post embolization using coil and Gelfoam. Arteriogram showed many microaneurysm of the left kidney raising concern for vasculitis. ? Risk
factor due to multiple myeloma
-will ask Onc for input-Per oncology patient with amyloid angiopathy most likely etiology of active arterial bleeding
-Autoimmune workup started however seems likely secondary to amyloid angiopathy. INDIO negative. Complements C3 elevated C4 normal. ANCA panel negative.
-CT angio 08/11 PM with large RP hematoma and active extravasation. IRAD and Urology consulted-Plan for Left renal artery embolization later today.
-Ordered additional unit of PRBC however, due to MM/pt chemo meds taking longer. BP holding so far.
OLIVIA on CKD 4
-some degree of creatinine to be elevated with contrast exposure, active arterial bleeding, hypertension, embolization of renal artery
-Probnp elevated and was on high dose diuretics as OP.
-Monitor urinary output
-s/p IVF. Cr continue to uptrend with minimal urinary output.
-Status post HD catheter placement on 08/09 and now started on hemodialysis. Monitor hemodynamics closely as new to HD.
#Mild acute thrombocytopenia
-trend Plt for now.
-If with severe drop will need transfusion
# Hypokalemia
-Replete potassium
Paroxysmal atrial fibrillation with bradycardia
-Amiodarone on hold. Will ask cardiology for input.
-Holding Eliquis in the setting of active arterial bleed admitted to be held for at least 2 weeks
-Plan to restart amiodarone at lower dose 100mg QID weekly per EP.
-Pt understands risk of restarting Eliquis in setting of amyloid angiopathy and hemorrhagic shock in future vs. benefit of prevention of CVA. Pt agreeable to continue to hold Eliquis
CAD status post stents
-Hold aspirin
-Hold isosorbide mononitrate
Normal ischemic myocardial injury in the setting of CKD/CAD
-Troponin level chronically elevated
Chronic HFrEF
-Hold metolazone, Lasix
Essential hypertension
-Hold hydralazine. Blood pressure should improve with HD and volume removal if he can tolerate it as now on the softer side.
Hypercholesterolemia
-Continue statin
History of recurrent left pleural effusion
Amyloidosis
Multiple myeloma on immunotherapy-Patient on venclexta
-Patient on Darzalex, vencclexta
-when on chemo takes dexamethasone
-continue prophylactic acyclovir
Chemotherapy-induced neuropathy
-Continue gabapentin
Gout
-Continue allopurinol
Depression
-Continue Lamictal, risperidone
Full code
DVT prophylaxis�SCDs in setting of hemorrhagic shock
d/w with Urology/IRAD
Tx to IMU
Total Critical Care Time_ 35 minutes. I was immediately available to the patient and staff. I personally examined, reviewed labs, diagnostic images/reports, interpretations, treatment plans, discussed patient care with other providers and family
or caregivers (if patient is unable to make decisions), entered orders as appropriate and documented the medical record.
Anticipated Discharge: > 48 hours
Subjective/Interval History
-
Date of Service: August 13, 2023
Overnight with severe abd pain
Objective Data
-
Labs:
Laboratory Results
08/12/23 08/13/23
23:46 05:03
WBC 11.4 H
Hgb 7.2 L 7.2 L
Hct 21.5 L 21.9 L
Plt Count 136
Sodium 136
Potassium 4.2
Chloride 100
Carbon Dioxide 28
BUN 24 H
Creatinine 2.2 H
Glucose 124 H
Calcium 8.1 L
Vital Signs:
Vital Signs
Temp Pulse Resp BP Pulse Ox
98.7 F 86 18 127/61 94
08/13/23 07:10 08/13/23 07:10 08/13/23 07:10 08/13/23 07:10 08/13/23 07:10
I&O
08/12/23 08/13/23 08/14/23
06:59 06:59 06:59
Intake Total 960 / 960 1560 / 1560
Output Total 700 / 700 550 / 550
Balance 260 / 260 1010 / 1010
--- NOTE | 2023-08-13 10:11 | W.PN.URO.CBU ---
Today's Communication / Plan
-
Transfuse when blood is made available
It is preferable to have left RP hemorrhage tamponade as repeat embolization would need to target main left renal artery
Assessment / Plan
-
72M with afib, CAD on Eliquis with hemorrhagic shock, spontaneous left renal hemorrhage: clinical and radiographic evidence of ongoing retroperitoneal/renal hemorrhage
s/p selective embolization of L renal artery branch by IR 08/05
- HGB stabilized >96 hrs s/p transfusion 4 units PRBCs, patient remaind HD stable
- Trend renal function and Hgb. Transfuse as needed. Discussed with patient and Hospitalist/IRAD the role for repeat embolization should patient become HD unstable
- Hold anticoagulation at least 14 days post embolization. Given the presence of multiple other small renal artery aneurysms seen on arteriogram, consideration should be given to permanently discontinuing AC for risk of recurrent life threatening
bleed
Diagnosis
-
Date of Service: August 13, 2023
-
Patient Diagnosis:
Spontaneous retroperitoneal hemorrhage
s/p IR selective coil embolization of accessory renal artery 08/05 with radiographic evidence of recurrent/persistent bleed 08/13/23 with only minimal enlargement of left retroperitoneal hematoma
Renal failure: non-oliguric
Subjective
-
Patient has recurrent left flank/abdominal pain
Objective
-
Vital Signs
Temp Pulse Resp BP Pulse Ox
98.7 F 86 18 127/61 94
08/13/23 07:10 08/13/23 07:10 08/13/23 07:10 08/13/23 07:10 08/13/23 07:10
Intake and Output
08/12/23 08/13/23 08/14/23
06:59 06:59 06:59
Intake Total 960 / 960 1560 / 1560
Output Total 700 / 700 550 / 550
Balance 260 / 260 1010 / 1010
Intake:
Oral fluids 960 / 960 1560 / 1560
Output:
Urine, Viera 700 / 700 550 / 550
Laboratory Results
08/13/23 05:03
08/13/23 05:03
Review of Systems
-
Constitutional: No Symptoms
Respiratory: No Symptoms
Cardiac: No Symptoms
Abdomen/GI: Abdominal Pain
Neurological: No Symptoms
Physical Exam
-
General - acute distress due to abdominal pain
Abdomen - stable left flank ecchymosis
Genitalia - normal with Viera draining joyce urine
--- NOTE | 2023-08-13 10:29 | W.PN.CD ---
Today's Communication / Plan
-
Maintains SR
Monitor Hgb in setting of possible re-bleed
Impression / Plan
-
72M with left renal artery hemorrhage and resultant RP hematoma. Developed hypovolemia, hypotension, and OLIVIA on CKD to HD.We are called with significant bradycardia while on amiodarone. PMH: Parkinson's disease, CAD with stenting, HFpEF, HTN,
multiple myeloma, and CKD3b. MRI was done in 2021 as we were concerned about amyloidosis. BM biopsy confirms the presence of amyloid protein. This is myeloma-related. Previously seen by Dr Kerr at [facility].
Bradycardia, asymptomatic
- Improved
- Tele hard to be sure of rhythm, his P waves are so small
- Will restart Amio, was on 100 mg daily => will go to Amio 200 mg tabs (100 mg tabs are expensive and hard to obtain at times) 1/2 tab (100 mg) on SuTuThSa
Bleeding
- s/p IR embolization and volume resuscitation, however today August 12, pain return concern for re-bleed
- Hb 7.6 => 7.4 => 7.2, 7.2 again August 12
- We would use single agent AC (no ASA) if AC restarted
- he is at higher risk for stroke right now since his DCCV (07/17/2023) was recent, but he's had a life threatening bleed
HFmidrangeEF
- HD plans noted
- eventual GDMT as tolerated (limited in ESRD)
CAD
- continue ezetimibe and statin
- recent decline in LVEF
HTN - stable
Dyslipidemia - statin
MM with cardiac involvement
OLIVIA
Parkinson's
Critically ill 34 minute used
Subjective: No CP or dyspnea, ongoing left sided flank pain
Data:
����� ECHO in APR 2023 with EF 46%, global HK. No sig valve disease.
�������ECHO Dec 2022: EF 55%, MAC/mild MR, abnl strain c/w amyloid
�������Holter : DEC 2022: 48 hrs. Occ VPDs, no VT, rare supraventricular beats, no SVT. Mean HR 66 (35-96). Some Mobitz I AVB- SOB correlates with periods of Mobitz I AVB
�������Cardiac catheterization 08/26/2019: 30% mLAD, 20% in-stent stenosis OM 3, large OM 2 widely patent stent without restenosis, RCA with mild to moderate calcification 30% proximal stenosis, PDA focal 60% mid stenosis, with successful stenting of
80-90% OM 2 with FE
�������ECHO : EF 60-65%, mild to mod MR, PAs 35-40, aortic sclerosis
�������Lexiscan : perfusion normal . EF 45%.
Physical Exam
Vital Signs/Labs
Vital Signs
Temp Pulse Resp BP Pulse Ox
98.7 F 86 18 127/61 94
08/13/23 07:10 08/13/23 07:10 08/13/23 07:10 08/13/23 07:10 08/13/23 07:10
08/12/23 08/13/23 08/14/23
06:59 06:59 06:59
Actual Weight 196 lb 3.2 oz 197 lb 1.6 oz
08/13/23 05:03
08/13/23 05:03
PT 18.8 Sec (11.4-14.6) H 08/08/23 03:07
INR 1.60 08/08/23 03:07
APTT 43.3 Sec (23.4-35.0) H 08/08/23 03:07
Magnesium 2.2 mg/dl (1.6-2.3) 08/12/23 04:21
08/06/23
14:54
Adu-F-Putsgpressq Pept [id number]
Physical Exam
Constitutional: Other (uncomfortable appearing)
EENT: Anicteric
Cardiovascular: Rhythm & rate is regular and Pedal edema is absent
Respiratory: Respiratory effort normal
GI: Soft
Neuro/Psych: AO x 3
Data Reviewed
-
Date of Service: August 13, 2023
Medical Decision Making: Reviewed Test Results
EKG: Tracing Personally Visualized and interpreted (sr)
Echo: Report Reviewed by me
Labs: Labs Reviewed by me
--- NOTE | 2023-08-13 11:09 | W.PN.NEPH.PH ---
Today's Communication / Plan
-
HD tomorrow
Assessment/Plan
-
IMP:
OLIVIA on CKD Stage 4 baseline cr 1.8-2.5
CAD with cardiac stents
Paroxysmal atrial fibrillation
Second-degree AV block Mobitz type 1
Heart failure with preserved ejection fraction
Hypotension
AL Amyloidosis
Multiple Myeloma
Left inferior renal artery bleed status postembolization 08/06/2023
Plan:
for IR repeat embolization
follow Hgb
HD tomorrow, unfortunately, more likely that he will be permanent ESRD
-
-
Date of Service: August 13, 2023
CC / HPI / ROS
-
Chief Complaint:
OLIVIA on CKD
History of Present Illness:
OLIVIA/Cr on HD
tolerated HD yesterday
K stable
BP stable
Hgb stable 7.2
worse left flank pain; CT 08/11 showing active bleed
Review of Systems:
oliguric at this time
no CP/SOB
Labs
-
Labs:
WBC 11.4 10^3/uL (4.8-10.8) H 08/13/23 05:03
RBC 2.47 10^6/uL (4.70-6.10) L 08/13/23 05:03
Hgb 7.2 g/dL (13.0-18.0) L 08/13/23 05:03
Hct 21.9 % (39.0-52.0) L 08/13/23 05:03
Plt Count 136 10^3/uL (130-400) 08/13/23 05:03
Sodium 136 mmol/L (135-145) 08/13/23 05:03
Potassium 4.2 mmol/L (3.5-5.1) 08/13/23 05:03
Chloride 100 mmol/L (98-107) 08/13/23 05:03
Carbon Dioxide 28 mmol/L (22-30) 08/13/23 05:03
BUN 24 mg/dl (9-20) H 08/13/23 05:03
Creatinine 2.2 mg/dL (0.7-1.3) H 08/13/23 05:03
eGFR 30.85 08/13/23 05:03
Glucose 124 mg/dl (70-99) H 08/13/23 05:03
Calcium 8.1 mg/dl (8.4-10.2) L 08/13/23 05:03
Phosphorus 3.3 mg/dl (2.5-4.5) 08/12/23 04:21
Ibb-T-Gfaxwccbfsk Pept 77761 pg/ml 08/06/23 14:54
Albumin 2.7 g/dl (3.5-5.0) L 08/07/23 04:14
Physical Exam
-
Vital Signs:
Vital Signs
Temp Pulse Resp BP Pulse Ox
98.7 F 86 18 127/61 94
08/13/23 07:10 08/13/23 07:10 08/13/23 07:10 08/13/23 07:10 08/13/23 07:10
Cardiovascular:: Regular rate and rhythm
Respiratory:: Bilateral: Coarse
Lung Excursion:: Normal
Abdomen:: Nontender and Soft
Bowel Sounds:: Normal
Extremity Edema:: None: Bilateral:
--- NOTE | 2023-08-13 11:53 | PTOTSP ---
Reviewed chart and noted pt was transferred to IMU and PT order was not continued upon transfer. Please re-order PT (and OT) when pt is stable to participate in activity.
--- NOTE | 2023-08-13 12:16 | PTCARENOTE ---
Pt transferred to IMU with this RN and PCT. Pt ambulated to bed with assistance of RN and RW, dial in place, 2Lo2, pt resting comfortably in bed at this time. Report called prior to transfer.
--- NOTE | 2023-08-13 13:00 | PTCARENOTE ---
Patient transferred from [address] [place] [address] due to retroperitoneal bleed. Vital signs stable upon arrival. Patient oriented to room and plan of care. NPO for IR procedure later. For blood transfusion from [facility]. Pain is 2 out of 10 when asked at this time.
[2023-08-13] MEDS: CRESTOR 10 MG PO (14:04)
[2023-08-13] MEDS: LAMICTAL 100 MG PO ×2 (14:04→20:10)
[2023-08-13] MEDS: NON-FORMULARY ITEM 200 MG PO (14:05)
[2023-08-13] MEDS: ZYLOPRIM 100 MG PO (14:06)
[2023-08-13] MEDS: ZOVIRAX 200 MG PO ×2 (14:08→20:10)
[2023-08-13] MEDS: NEURONTIN 100 MG PO (16:35)
[2023-08-13] MEDS: RISPERDAL 0.25 MG PO (22:54)
[2023-08-13] MEDS: ZETIA 10 MG PO (22:54)
[2023-08-14] VITALS (42 sets, daily range): BP systolic 113–155; BP diastolic 52–115; BMI 28.3
[2023-08-14] MEDS: DILAUDID 0.5 MG IV ×2 (03:17→17:27)
[2023-08-14 08:16] LABS: % Basophils 0.2 % (0-2); % Immature Granulocytes 0.4 % (0-0.5); % Lymphocytes 4.3 % (20.5-51.1); % Monocytes 10.4 % (1.7-9.3); % Neutrophils 84.7 % (42.2-75.2); Absolute Lymphocytes 0.4 10^3/uL (1.2-3.4); Absolute Neutrophils 8.1 10^3/uL (1.4-6.5); Mean Corp Hgb Conc. 32.6 g/dL (33.0-37.0); Mean Corpuscular Hgb 29.4 pg (27.0-31.0); Mean Corpuscular Volume 90.2 fL (80.0-94.0); Mean Platelet Volume 10.3 fL (7.4-10.4); Nucleated Red Blood Cells % 0.7 % (-); Platelet Count 139 10^3/uL (130-400); Red Blood Cell Count 2.04 10^6/uL (4.70-6.10); Red Cell Dist. Width 17.9 % (11.5-14.5); White Blood Cell Count 9.6 10^3/uL (4.8-10.8)
[2023-08-14 08:18] LABS: Hematocrit 18.4 % (39.0-52.0)
[2023-08-14 08:52] LABS: Blood Urea Nitrogen 39 mg/dl (9-20); Calcium 8.3 mg/dl (8.4-10.2); Carbon Dioxide 27 mmol/L (22-30); Chloride 98 mmol/L (98-107); Estimated Creatinine Clearance 19 ml/min; Glucose 121 mg/dl (70-99); Potassium 4.5 mmol/L (3.5-5.1); Sodium 134 mmol/L (135-145); eGFR 17.67
[2023-08-14] MEDS: RETACRIT 10000 UNITS IV (09:16)
--- NOTE | 2023-08-14 09:22 | W.PN.HOSP.TC ---
Today's Communication/Plan
-
Blood transfusion
HD
watch renal function improvement
Assessment / Plan
Assessment / Plan
CVS: S1-S2 normal
Chest: CTA B/L, decreased at bases.
Abdomen: Soft, Mild Left sided tenderness, Bowel sounds present
Extremities: No edema
#Hypovolemic/Hemorrhagic shock
Acute blood loss anemia secondary to retroperitoneal hemorrhage
Left renal artery extravasation status post embolization
-Status post 4 units of PRBC and hemoglobin 6.0 .
-Will give 2 more units now
-Hold aspirin, Eliquis
-Kcentra given to reverse Eliquis
-Hold Lasix, metolazone
-Hold antihypertensives
-Off Levophed now. Goal MAP >65 and if needed restart Levophed.
-Status post arteriogram with finding of large arterial active bleeding in the multiple left kidney status post embolization using coil and Gelfoam. Arteriogram showed many microaneurysm of the left kidney raising concern for vasculitis. ? Risk
factor due to multiple myeloma
-Per oncology patient with amyloid angiopathy most likely etiology of active arterial bleeding
-Autoimmune workup started however seems likely secondary to amyloid angiopathy. INDIO negative. Complements C3 elevated C4 normal. ANCA panel negative.
-CT angio 08/11 PM with large RP hematoma and active extravasation.
-Interventional radiology reevaluated and holding off on embolization the waiting tamponade of the hemorrhoid site
-Blood bank has placed incompatible blood because Darzalex makes compatibility testing difficult and patient has received least incompatible blood before.
#OLIVIA on CKD 4
-some degree of creatinine to be elevated with contrast exposure, active arterial bleeding, hypertension, embolization
-Probnp elevated and was on high dose diuretics as OP.
-s/p IVF. Cr continue to uptrend with minimal urinary output.
-Status post HD catheter placement on 08/09 and now started on hemodialysis. Monitor hemodynamics closely as new to HD.
#Mild acute thrombocytopenia-resolved
# HypokalemiaResolved-
#Paroxysmal atrial fibrillation with bradycardia
-Amiodarone on hold.
-Holding Eliquis in the setting of active arterial bleed admitted to be held for at least 2 weeks
-Plan to restart amiodarone at lower dose 100mg QID weekly per EP.
-Pt understands risk of restarting Eliquis in setting of amyloid angiopathy and hemorrhagic shock in future vs. benefit of prevention of CVA. Pt agreeable to continue to hold Eliquis
#CAD status post stents
-Hold aspirin
-Hold isosorbide mononitrate
#Normal ischemic myocardial injury in the setting of CKD/CAD
-Troponin level chronically elevated
#Chronic HFrEF
-Hold metolazone, Lasix
#Essential hypertension
-Hold hydralazine. Blood pressure should improve with HD and volume removal if he can tolerate it as now on the softer side.
#Hypercholesterolemia
-Continue statin
#History of recurrent left pleural effusion
#Amyloidosis
#Multiple myeloma on immunotherapy-Patient on venclexta
-Patient on Darzalex, vencclexta
-when on chemo takes dexamethasone
-Continue prophylactic acyclovir
#Amyloidosis
#Chemotherapy-induced neuropathy-Continue gabapentin
#Gout-Continue allopurinol
#Depression-Continue Lamictal, risperidone
# Cholelithiasis
# Cervical degenerative disc disease/arthritis
#Extensive diverticulosis.Extensive diverticulosis.
#Hypodense lesion in the left lobe of the thyroid for which ultrasound could be performed as OP
#Ex Smoker
#Full code
#DVT prophylaxis�SCDs in setting of hemorrhagic shock
D/W Hematology
D/W Daughter on the phone and updated [phone]
D/W RN
Time spent 54 min
Anticipated Discharge: > 48 hours
Subjective/Interval History
-
Date of Service: August 14, 2023
Objective Data
-
Labs:
Laboratory Results
08/14/23
07:25
WBC 9.6
Hgb 6.0 L*
Hct 18.4 L*
Plt Count 139
Sodium 134 L
Potassium 4.5
Chloride 98
Carbon Dioxide 27
BUN 39 H
Creatinine 3.5 H
Glucose 121 H
Calcium 8.3 L
Vital Signs:
Vital Signs
Temp Pulse Resp BP Pulse Ox
98.4 F 69 15 127/57 98
08/14/23 07:01 08/14/23 06:00 08/14/23 06:00 08/14/23 06:00 08/14/23 08:15
I&O
08/13/23 08/14/23 08/15/23
06:59 06:59 06:59
Intake Total 1560 / 1560 440 / 440
Output Total 550 / 550 30 / 30
Balance 1010 / 1010 410 / 410
[2023-08-14] MEDS: COLACE PO ×2 (10:38→19:28)
[2023-08-14] MEDS: MIRALAX PO (10:38)
[2023-08-14] MEDS: SENOKOT PO ×2 (10:38→19:28)
--- NOTE | 2023-08-14 11:17 | W.PN.NEPH.HD ---
Assessment
-
tolerating HD well
continues to have temp HD cath in place
no signs of recovery thus far
Progress Note - Hemodialysis
-
Date of Service: August 14, 2023
Duration: 30 minutes and 3 hours
Potassium Bath: 3
Calcium Bath: 2.5
Opti-Dialyzer: 160
Ultrafiltration: Other
Blood Flow: 400
Dialysate Flow: 600
[2023-08-14] MEDS: HEPARIN 2500 UNITS INTRACATH (11:20)
[2023-08-14] MEDS: DESENEX/MITRAZOL/ZEASORB 1 APPLIC TOPICAL ×2 (12:06→19:28)
[2023-08-14] MEDS: LAMICTAL 100 MG PO ×2 (12:07→19:28)
[2023-08-14] MEDS: ZYLOPRIM 100 MG PO (12:07)
[2023-08-14] MEDS: ZOVIRAX 200 MG PO ×2 (12:08→19:28)
[2023-08-14] MEDS: CRESTOR 10 MG PO (12:08)
[2023-08-14] MEDS: PACERONE 100 MG PO (12:09)
[2023-08-14] MEDS: NON-FORMULARY ITEM 200 MG PO (12:09)
--- NOTE | 2023-08-14 12:31 | PTCARENOTE ---
Addendum entered by Amalia Catherine 08/14/23 16:32:
Blood transfusion completed, pt resting at this time.
Original Note:
Pt presents as assessed. Aox3. Received HD with HD RN, tolerated well. First unit of blood transfused during HD. Second unit of blood hung and infusing at this time. Medications administered as ordered, see MAR. Pt refusing lunch. Sleeping
intermittently. Call angelo within reach, able to make needs known.
--- NOTE | 2023-08-14 14:35 | W.PN.CD ---
Today's Communication / Plan
-
Hold OAT for now
Getting PRBC
Impression / Plan
-
72M with left renal artery hemorrhage and resultant RP hematoma. Developed hypovolemia, hypotension, and OLIVIA on CKD to HD.We are called with significant bradycardia while on amiodarone. PMH: Parkinson's disease, CAD with stenting, HFpEF, HTN,
multiple myeloma, and CKD3b. MRI was done in 2021 as we were concerned about amyloidosis. BM biopsy confirms the presence of amyloid protein. This is myeloma-related. Previously seen by Dr Kerr at [facility].
Bradycardia, asymptomatic
- Improved
- On amio 100mg 3 days per week => will go to Amio 200 mg tabs (100 mg tabs are expensive and hard to obtain at times) 1/2 tab (100 mg) on SuTuThSa
Bleeding
- s/p IR embolization and volume resuscitation, however today Hb is 6.0 consistent with rebleed
- Hb 7.2 yest , 6.0 thoday. Getting PRBC now
- We would use single agent AC (no ASA) if AC restarted- will need to show stability for some time prior to any resumption of OAT
- he is at higher risk for stroke right now since his DCCV (07/17/2023) was recent, but he's having a life threatening bleed
HFmidrangeEF
- HD plans noted
- eventual GDMT as tolerated (limited in ESRD)
- Was recently on a course of zaroxlyn for worsening edema. No longer present
CAD
- continue ezetimibe and statin
- recent decline in LVEF
Multiple myeloma with cardiac amyloidosis
- Followed at [facility] and by Dr Crocker
- Has never had a full remission for the MM
HTN - stable
Dyslipidemia - statin
MM with cardiac involvement
OLIVIA on top of CKD
- Cr up today to 3.5
- Lower half of kdney required embolization
Parkinson's
Subjective: Sleeping comfortably
Data:
����� ECHO in APR 2023 with EF 46%, global HK. No sig valve disease.
�������ECHO Dec 2022: EF 55%, MAC/mild MR, abnl strain c/w amyloid
�������Holter : DEC 2022: 48 hrs. Occ VPDs, no VT, rare supraventricular beats, no SVT. Mean HR 66 (35-96). Some Mobitz I AVB- SOB correlates with periods of Mobitz I AVB
�������Cardiac catheterization 08/26/2019: 30% mLAD, 20% in-stent stenosis OM 3, large OM 2 widely patent stent without restenosis, RCA with mild to moderate calcification 30% proximal stenosis, PDA focal 60% mid stenosis, with successful stenting of
80-90% OM 2 with FE
�������ECHO : EF 60-65%, mild to mod MR, PAs 35-40, aortic sclerosis
�������Lexiscan : perfusion normal . EF 45%.
Physical Exam
Vital Signs/Labs
Vital Signs
Temp Pulse Resp BP Pulse Ox
98.9 F 82 19 149/66 98
08/14/23 12:35 08/14/23 13:00 08/14/23 13:00 08/14/23 13:00 08/14/23 13:00
08/13/23 08/14/23 08/15/23
06:59 06:59 06:59
Actual Weight 197 lb 1.6 oz 197 lb 5.019 oz
08/14/23 07:25
08/14/23 07:25
PT 18.8 Sec (11.4-14.6) H 08/08/23 03:07
INR 1.60 08/08/23 03:07
APTT 43.3 Sec (23.4-35.0) H 08/08/23 03:07
Magnesium 2.2 mg/dl (1.6-2.3) 08/12/23 04:21
08/06/23
14:54
Eey-X-Uqofkibpfzm Pept [id number]
Physical Exam
Constitutional: No acute distress and Other (sleeping)
Cardiovascular: Rhythm & rate is regular and Pedal edema is absent
Respiratory: Lungs clear to auscul.
GI: Soft
Neuro/Psych: Motor deficits absent
Data Reviewed
-
Date of Service: August 14, 2023
--- NOTE | 2023-08-14 16:49 | CM ---
Addendum entered by Natalie Tee RN 08/14/23 17:10:
Message to Dr Chaparro requesting PT/OT Evals. PT notes say await new orders to resume.
Plan follow up after seen by PT/OT.
Plan follow up with [facility] re; referral to [facility].
Original Note:
Patient with Dx Hypovolemic/Hemorrhagic shock, Acute blood loss anemia secondary to retroperitoneal hemorrhage, OLIVIA on CKD 4, PAF with bradycardia. Receiving HD. PT 08/07 recommends skilled rehab.
Received phone call from Am[facility], [facility] (ph [phone]); the patient cannot be accepted until the ophthalmic medical technician returns on 08/22.
Message to Danyel [facility] re; proposed HD clinic cannot accept until 08/22---> they prefer patient is assigned to an alternate clinic.
Phone calls to Clif, Assigned [facility] x [phone]; left 2 messages requesting callback today. Patient needs new clinic assignment at [place].
Spoke with Dunia, legal receptionist [facility]; she took message for [facility] to call back however is unable to make referrals.
Spoke with patient and explained [facility] - patient agrees to a referral to [facility] which is equidistant. He confirms he prefers MWF late morning schedule and will be driving himself to
HD. Patient states he also has a friend who has taken him to other medical appointments, who may be willing to help him with transport as needed. His ex- is a support and he also has 2 children nearby.
Plan follow up with [facility] re; referral to [facility].
[2023-08-14 19:11] LABS: Hematocrit 24.6 % (39.0-52.0); Hemoglobin 8.4 g/dL (13.0-18.0)
[2023-08-14] MEDS: ROXICODONE 5 MG PO (19:27)
[2023-08-14] MEDS: ZETIA 10 MG PO (21:32)
[2023-08-14] MEDS: RISPERDAL 0.25 MG PO (21:32)
[2023-08-15] VITALS (18 sets, daily range): BP systolic 124–161; BP diastolic 55–101; PULSE 72; BMI 28.3
[2023-08-15] MEDS: ROXICODONE 5 MG PO (02:44)
[2023-08-15 05:44] LABS: Hematocrit 22.9 % (39.0-52.0); Hemoglobin 7.4 g/dL (13.0-18.0); Mean Corp Hgb Conc. 32.3 g/dL (33.0-37.0); Mean Corpuscular Hgb 29.5 pg (27.0-31.0); Mean Corpuscular Volume 91.2 fL (80.0-94.0); Mean Platelet Volume 9.7 fL (7.4-10.4); Platelet Count 124 10^3/uL (130-400); Red Blood Cell Count 2.51 10^6/uL (4.70-6.10); Red Cell Dist. Width 17.3 % (11.5-14.5); White Blood Cell Count 9.8 10^3/uL (4.8-10.8)
[2023-08-15 05:57] LABS: Blood Urea Nitrogen 29 mg/dl (9-20); Calcium 8.1 mg/dl (8.4-10.2); Carbon Dioxide 30 mmol/L (22-30); Chloride 100 mmol/L (98-107); Estimated Creatinine Clearance 26 ml/min; Glucose 96 mg/dl (70-99); Potassium 4.1 mmol/L (3.5-5.1); Sodium 136 mmol/L (135-145); eGFR 25.25
--- NOTE | 2023-08-15 06:31 | PTCARENOTE ---
Cared for pt overnight. aaox3, very flat but pleasant & thankful. Milka given for pain in L flank, bruising still present but did not spread. Bruising also noted on scrotum. Aaron in place, only 50cc overnight joyce in color. hgb dropped this am to
7.4. VSS overnight. CR down to 2.6. Will continue to monitor.
[2023-08-15] MEDS: DESENEX/MITRAZOL/ZEASORB 1 APPLIC TOPICAL ×2 (08:41→20:06)
[2023-08-15] MEDS: ZYLOPRIM 100 MG PO (08:41)
[2023-08-15] MEDS: LAMICTAL 100 MG PO ×2 (08:41→20:06)
[2023-08-15] MEDS: CRESTOR 10 MG PO (08:41)
[2023-08-15] MEDS: SENOKOT 17.1999999999999993 MG PO (08:41)
[2023-08-15] MEDS: ZOVIRAX 200 MG PO ×2 (08:41→20:06)
[2023-08-15] MEDS: MIRALAX PO (08:42)
[2023-08-15] MEDS: COLACE PO ×2 (08:42→20:06)
[2023-08-15] MEDS: NON-FORMULARY ITEM 200 MG PO (08:42)
--- NOTE | 2023-08-15 08:50 | W.PN.CD ---
Today's Communication / Plan
-
Consider workup for vasculitis
Still bleeding on CT 08/12/2023
H/H falling
Likely we will not offer systemic anticoagulation again
Watch richard that may result in lowering dose of Amio (or pacemaker implant, that I want to avoid)
Extremely high risk
Impression / Plan
-
72M with left renal artery hemorrhage and resultant RP hematoma. Developed hypovolemia, hypotension, and OLIVIA on CKD to HD.We are called with significant bradycardia while on amiodarone. PMH: Parkinson's disease, CAD with stenting, HFpEF, HTN,
multiple myeloma, and CKD3b. MRI was done in 2021 as we were concerned about amyloidosis. BM biopsy confirms the presence of amyloid protein. This is myeloma-related. Previously seen by Dr Kerr at [facility].
Abnormal yann angiogram: 'Multiple microaneurysms were seen within the peripheral left renal arteries, which may be seen in the setting of vasculitis. Vasculitis may predispose to spontaneous renal hemorrhage. Consider workup for vasculitis'
Bradycardia, asymptomatic
- Improved
- On amio 100mg 3 days per week => Amio 200 mg tabs 1/2 tab (100 mg) on SuTuThSa (100 mg tabs are expensive and hard to obtain at times)
- Monitor. May need to lower Amio dose further
Bleeding
- s/p IR embolization and volume resuscitation, however today Hb is 6.0 consistent with rebleed
- CT scan08/12/2023 persistent area of active bleeding status post embolization.
- H/H lower today
- Urology notes imaging of kidneys suggests rebleeding is increased risk and suggests considering NOT using systemic anticoagulation AGAIN
- He may not be acceptable for systemic anticoagulation
- he is at higher risk for stroke right now since his DCCV (07/17/2023) was recent, but he's having a life threatening bleed
HFmidrangeEF
- HD plans noted
- eventual GDMT as tolerated (limited in ESRD)
- Was recently on a course of Zaroxolyn for worsening edema. No longer present
CAD
- continue ezetimibe and statin
- recent decline in LVEF
Multiple myeloma with cardiac amyloidosis
- Followed at [facility] and by Dr Crocker
- Has never had a full remission for the MM
HTN - stable
Dyslipidemia - statin
MM with cardiac involvement
OLIVIA on top of CKD
- Cr up today to 3.5
- Lower half of kdney required embolization
Parkinson's
Subjective: Feels well
Data:
����� ECHO in APR 2023 with EF 46%, global HK. No sig valve disease.
�������ECHO Dec 2022: EF 55%, MAC/mild MR, abnl strain c/w amyloid
�������Holter : DEC 2022: 48 hrs. Occ VPDs, no VT, rare supraventricular beats, no SVT. Mean HR 66 (35-96). Some Mobitz I AVB- SOB correlates with periods of Mobitz I AVB
�������Cardiac catheterization 08/26/2019: 30% mLAD, 20% in-stent stenosis OM 3, large OM 2 widely patent stent without restenosis, RCA with mild to moderate calcification 30% proximal stenosis, PDA focal 60% mid stenosis, with successful stenting of
80-90% OM 2 with FE
�������ECHO : EF 60-65%, mild to mod MR, PAs 35-40, aortic sclerosis
�������Lexiscan : perfusion normal . EF 45%.
Physical Exam
Vital Signs/Labs
Vital Signs
Temp Pulse Resp BP Pulse Ox
98.3 F 71 23 142/65 97
08/15/23 07:50 08/15/23 02:00 08/15/23 02:00 08/15/23 02:00 08/15/23 02:00
08/14/23 08/15/23 08/16/23
06:59 06:59 06:59
Actual Weight 89.5 kg 89.4 kg
08/15/23 05:16
08/15/23 05:16
PT 18.8 Sec (11.4-14.6) H 08/08/23 03:07
INR 1.60 08/08/23 03:07
APTT 43.3 Sec (23.4-35.0) H 08/08/23 03:07
Magnesium 2.2 mg/dl (1.6-2.3) 08/12/23 04:21
08/06/23
14:54
Cbi-C-Rsgpsuxeucy Pept [id number]
Physical Exam
Constitutional: No acute distress
EENT: Anicteric
Cardiovascular: Rhythm & rate is regular and Pedal edema is absent
Respiratory: Respiratory effort normal
GI: Soft and Distention absent
Neuro/Psych: AO x 3
Data Reviewed
-
Date of Service: August 15, 2023
--- NOTE | 2023-08-15 10:53 | W.PN.HOSP.TC ---
Today's Communication/Plan
-
1 unit of blood today
Watch hemoglobin
Okay to start PT OT
Watch heart rate closely
Assessment / Plan
Assessment / Plan
CVS: S1-S2 normal
Chest: CTA B/L, decreased at bases.
Abdomen: Soft, Mild Left sided tenderness, Bowel sounds present
Extremities: No edema
#Hypovolemic/Hemorrhagic shock
Acute blood loss anemia secondary to retroperitoneal hemorrhage
Left renal artery extravasation status post embolization
-Status post 6 units of PRBC and hemoglobin 7.4 .
-Will give 1 more units now
-Hold aspirin, Eliquis
-Kcentra given to reverse Eliquis
-Hold Lasix, metolazone
-Hold antihypertensives
-Off Levophed now. Goal MAP >65 and if needed restart Levophed.
-Status post arteriogram with finding of large arterial active bleeding in the multiple left kidney status post embolization using coil and Gelfoam. Arteriogram showed many microaneurysm of the left kidney raising concern for vasculitis. ? Risk
factor due to multiple myeloma
-Per oncology patient with amyloid angiopathy most likely etiology of active arterial bleeding
-Autoimmune workup started however seems likely secondary to amyloid angiopathy. INDIO negative. Complements C3 elevated C4 normal. ANCA panel negative.
-CT angio 08/11 PM with large RP hematoma and active extravasation.
-Interventional radiology reevaluated and holding off on embolization the waiting tamponade of the hemorrhoid site, as he may loose renal function with more embolization
-Blood bank has placed incompatible blood because Darzalex makes compatibility testing difficult and patient has received least incompatible blood before.
-Vasculitis serology was negative
#OLIVIA on CKD 4
-some degree of creatinine to be elevated with contrast exposure, active arterial bleeding, hypertension, embolization
-Probnp elevated and was on high dose diuretics as OP.
-s/p IVF. Cr continue to uptrend with minimal urinary output.
-Status post HD catheter placement on 08/09 and now started on hemodialysis. Monitor hemodynamics closely as new to HD.
#Mild acute thrombocytopenia-resolved
# Hypokalemia Resolved
#Paroxysmal atrial fibrillation with bradycardia
-Holding Eliquis in the setting of active arterial bleed admitted to be held for at least 2 weeks
-Plan to restart amiodarone at lower dose 100mg 3 times weekly per EP.
-Pt understands risk of restarting Eliquis in setting of amyloid angiopathy and hemorrhagic shock in future vs. benefit of prevention of CVA. Pt agreeable to continue to hold Eliquis
-Bradycardia noted-cardiology following and adjusting amiodarone
#CAD status post stents
-Hold aspirin
-Hold isosorbide mononitrate
#Normal ischemic myocardial injury in the setting of CKD/CAD
-Troponin level chronically elevated
#Chronic HFrEF
-Hold metolazone, Lasix
#Essential hypertension
-Hold hydralazine.
#Hyperlipidemia
-Continue statin
#History of recurrent left pleural effusion
#Amyloidosis
#Multiple myeloma on immunotherapy-Patient on Venclexta
-Patient on Darzalex, Venclexta
-when on chemo takes dexamethasone
-Continue prophylactic acyclovir
#Amyloidosis
#Chemotherapy-induced neuropathy-Continue gabapentin
#Gout-Continue allopurinol
#Depression-Continue Lamictal, risperidone
# Cholelithiasis
# Cervical degenerative disc disease/arthritis
#Extensive diverticulosis.Extensive diverticulosis.
#Hypodense lesion in the left lobe of the thyroid for which ultrasound could be performed as OP
#Ex Smoker
#Full code
#DVT prophylaxis�SCDs in setting of hemorrhagic shock
D/W cardiology
Discussed with nephrology
D/W Daughter on the phone and updated [phone] 08/14/23. Left a message 08/15/23.
D/W RN
Second visit to sign the blood bank form
Time spent 52 min
High risk situation given bleeding, heart rate, not able to anticoagulate, amyloidosis
Anticipated Discharge: > 48 hours
Subjective/Interval History
-
Date of Service: August 15, 2023
Objective Data
-
Labs:
Laboratory Results
08/15/23
05:16
WBC 9.8
Hgb 7.4 L
Hct 22.9 L
Plt Count 124 L
Sodium 136
Potassium 4.1
Chloride 100
Carbon Dioxide 30
BUN 29 H
Creatinine 2.6 H
Glucose 96
Calcium 8.1 L
Vital Signs:
Vital Signs
Temp Pulse Resp BP Pulse Ox
98.3 F 66 21 142/65 96
08/15/23 07:50 08/15/23 08:00 08/15/23 08:00 08/15/23 08:00 08/15/23 10:03
I&O
08/14/23 08/15/23 08/16/23
06:59 06:59 06:59
Intake Total 440 / 440 1240 / 1240
Output Total 50 / 50
Balance 410 / 410 1190 / 1190
--- NOTE | 2023-08-15 11:27 | PTCARENOTE ---
Addendum entered by Amalia Catheirne 08/15/23 14:59:
Unit of blood completed. Milk of magnesia administered, see MAR.
Addendum entered by Amalia Catherine 08/15/23 11:38:
Pt ordered milk of magnesia stat, d/w Dr. Chaparro. Okay to wait to administer until blood transfusion is complete. Pt updated and in agreement with plan of care.
Original Note:
Pt presents as assessed. Aox3 and pleasant. Denies pain at this pain. Small amount of urine draining via dial. Pt agreeable to take senna, but refused miralax and colace despite education on bowel regimen. Unit of blood hung as ordered, pt
tolerating well. Family at bedside, updated on plan of care.
--- NOTE | 2023-08-15 11:43 | W.PN.ONC2 ---
Today's Communication / Plan
-
Follow CBC
Impression
Impression
left renal artery hemorrhage, spontaneous
AL amyloidosis, Multiple myeloma. July 2023 Mspike stable 0.6, however free light chains slowly rising. Venetoclax resumed 08/09/2023
Eliquis for pAfib on hold
ASA of CAD on hold
ABLA s/p 6unit prbc during hospitalization and on epoetin
OLIVIA on CKD, ESRD on HD
HFpEF
Hypovolemic/hemorrhagic shock
Plan
Plan
He may have amyloid deposition in vasculature (amyloid angiopathy), making him prone to bleeding due to vessel fragility
Would continue to monitor CBC
Aspirin and apixaban remain on hold
Venetoclax unlikely to be dialyzed (highly protein bound): Safety and efficacy data are currently limited to case reports. However, no supplemental dose or dosage adjustment likely to be necessary based on pharmacokinetic characteristics
Viral prophylaxis
Monthly myeloma panel
pain management
Bowel regimen
Will follow along peripherally, outpatient f/u with Dr. Crocker
Subjective/Objective
Chief Complaint
Subjective
afebrile, no hypoxia or hypotension
Hgb 7.4g/dL, denies bleeding, reports improving hematoma
Continues HD
Last IV hydromorphone dose was yesterday, pain currently controlled with oxycodone IR as needed
Constipation, encouraged bowel regimen
Vital Signs:
Vital Signs
Temp Pulse Resp BP Pulse Ox
99.1 F 66 23 131/58 96
08/15/23 11:37 08/15/23 11:37 08/15/23 11:37 08/15/23 11:37 08/15/23 10:03
Lab Results:
Laboratory Data
WBC 9.8 10^3/uL (4.8-10.8) 08/15/23 05:16
Hgb 7.4 g/dL (13.0-18.0) L 08/15/23 05:16
Plt Count 124 10^3/uL (130-400) L 08/15/23 05:16
PT 18.8 Sec (11.4-14.6) H 08/08/23 03:07
INR 1.60 08/08/23 03:07
APTT 43.3 Sec (23.4-35.0) H 08/08/23 03:07
eGFR 25.25 08/15/23 05:16
Physical Exam
Physical exam
General no acute distress
HEEnt, moist mucous membranes no oral lesions, no scleral icterus
CV no murmur
Pulm clear without rales
Abdomen soft and nontender
Left lateral hematoma stable as per ink marked
Review of Systems
Review of Systems
Review of systems notable for subjective, otherwise negative
--- NOTE | 2023-08-15 11:45 | W.PN.NEPH.PH ---
Today's Communication / Plan
-
HD tomorrow
Assessment/Plan
-
IMP:
OLIVIA on CKD Stage 4 baseline cr 1.8-2.5
CAD with cardiac stents
Paroxysmal atrial fibrillation
Second-degree AV block Mobitz type 1
Heart failure with preserved ejection fraction
Hypotension
AL Amyloidosis
Multiple Myeloma
Left inferior renal artery bleed status postembolization 08/06/2023
Plan:
transfuse as needed
follow Hgb
HD tomorrow, unfortunately, likely that he will be permanent ESRD
will need to move temp CVC to left tunnelled eventually
-
-
Date of Service: August 15, 2023
CC / HPI / ROS
-
Chief Complaint:
OLIVIA on CKD
History of Present Illness:
OLIVIA/Cr on HD
tolerated HD yesterday
K stable
BP stable
Hgb stable 7.4, transfused yestserday
worse left flank pain; CT 08/11 showing active bleed
Review of Systems:
oliguric at this time
no CP/SOB
Labs
-
Labs:
WBC 9.8 10^3/uL (4.8-10.8) 08/15/23 05:16
RBC 2.51 10^6/uL (4.70-6.10) L 08/15/23 05:16
Hgb 7.4 g/dL (13.0-18.0) L 08/15/23 05:16
Hct 22.9 % (39.0-52.0) L 08/15/23 05:16
Plt Count 124 10^3/uL (130-400) L 08/15/23 05:16
Sodium 136 mmol/L (135-145) 08/15/23 05:16
Potassium 4.1 mmol/L (3.5-5.1) 08/15/23 05:16
Chloride 100 mmol/L (98-107) 08/15/23 05:16
Carbon Dioxide 30 mmol/L (22-30) 08/15/23 05:16
BUN 29 mg/dl (9-20) H 08/15/23 05:16
Creatinine 2.6 mg/dL (0.7-1.3) H 08/15/23 05:16
eGFR 25.25 08/15/23 05:16
Glucose 96 mg/dl (70-99) 08/15/23 05:16
Calcium 8.1 mg/dl (8.4-10.2) L 08/15/23 05:16
Phosphorus 3.3 mg/dl (2.5-4.5) 08/12/23 04:21
Rdm-M-Bbqbluqoctl Pept 34505 pg/ml 08/06/23 14:54
Albumin 2.7 g/dl (3.5-5.0) L 08/07/23 04:14
Physical Exam
-
Vital Signs:
Vital Signs
Temp Pulse Resp BP Pulse Ox
99.1 F 66 23 131/58 96
08/15/23 11:37 08/15/23 11:37 08/15/23 11:37 08/15/23 11:37 08/15/23 10:03
Cardiovascular:: Regular rate and rhythm
Respiratory:: Bilateral: Coarse
Lung Excursion:: Normal
Abdomen:: Nontender and Soft
Bowel Sounds:: Normal
Extremity Edema:: None: Bilateral:
--- NOTE | 2023-08-15 12:29 | W.PN.URO.CBU ---
Today's Communication / Plan
-
Trend HGB, transfuse as needed
Trend renal function
Assessment / Plan
-
72M with afib, CAD on Eliquis with hemorrhagic shock, spontaneous left renal hemorrhage: clinical and radiographic evidence of ongoing retroperitoneal/renal hemorrhage
s/p selective embolization of L renal artery branch by IR 08/05
- HGB stabilized >96 hrs s/p transfusion 4 units PRBCs and initially stable
- Now with recurrent bleeding demonstrated on angiogram 08/12 - responded to transfusion 1 unit on 08/13
- Trend renal function and Hgb. Transfuse as needed. Discussed with the role for repeat embolization should patient become HD unstable
- Hold anticoagulation at least through mid August. Given the presence of multiple other small renal artery aneurysms seen on arteriogram and now recurrent bleed, consideration should be given to permanently discontinuing AC for risk of recurrent life
threatening bleed
Diagnosis
-
Date of Service: August 15, 2023
-
Patient Diagnosis:
Spontaneous retroperitoneal hemorrhage
s/p IR selective coil embolization of accessory renal artery 08/05 with radiographic evidence of recurrent/persistent bleed 08/13/23 with only minimal enlargement of left retroperitoneal hematoma
Renal failure: non-oliguric
Subjective
-
HGB stable after transfusion yesterday
VS stable, no events
Objective
-
Vital Signs
Temp Pulse Resp BP Pulse Ox
99.1 F 66 23 131/58 96
08/15/23 11:37 08/15/23 11:37 08/15/23 11:37 08/15/23 11:37 08/15/23 10:03
Intake and Output
08/14/23 08/15/23 08/16/23
06:59 06:59 06:59
Intake Total 440 / 440 1240 / 1240 0 / 0
Output Total 50 / 50
Balance 410 / 410 1190 / 1190 0 / 0
Intake:
Oral fluids 440 / 440 240 / 240
Blood products 500 / 500
Blood Product Amount Infused ( 500 / 500 0 / 0
mL)
Packed Rbc Leukoreduced Unit 250 / 250
[id number]
Packed Rbc Leukoreduced Unit 250 / 250
[id number]
Packed Rbc Leukoreduced Unit 0 / 0
[id number]
Output:
Urine, Viera 30 30 50 / 50
Other:
Transfused during hemodialysis?
Packed Rbc Leukoreduced Unit Yes
[id number]
Laboratory Results
08/15/23 05:16
08/15/23 05:16
Physical Exam
-
General - well developed, well nourished, no acute distress
Chest - clear
Abdomen - soft, non-tender
Skin - warm & dry with no rash
Neuro - AOx3, no motor deficits
[2023-08-15] MEDS: MILK OF MAGNESIA 30 ML PO (14:47)
[2023-08-15] MEDS: NEURONTIN PO (18:47)
[2023-08-15] MEDS: SENOKOT PO (20:06)
[2023-08-15] MEDS: RISPERDAL 0.25 MG PO (21:13)
[2023-08-15] MEDS: ZETIA 10 MG PO (21:13)
--- NOTE | 2023-08-15 21:56 | PTCARENOTE ---
assumed care of patient, pt is AAOx3- able to make needs known. pt in chair at start of shift, stating he is going to sleep there. left flank pain tolerable, bruise/swelling noted. 97% RA. assessment documented on work list. dial pulled for
dayshift, will monitor urine output, pt is for HD tomorrow. per Dr. Chaparro, the two units of PRBC's were ordered for hold in case patient needs it since [facility] blood bank aware. care ongoing.
[2023-08-16] VITALS (27 sets, daily range): BP systolic 108–160; BP diastolic 52–124; BMI 28.5
[2023-08-16 05:30] LABS: Hematocrit 26.7 % (39.0-52.0); Mean Corp Hgb Conc. 33.3 g/dL (33.0-37.0); Mean Platelet Volume 9.6 fL (7.4-10.4); Platelet Count 113 10^3/uL (130-400); Red Blood Cell Count 3.07 10^6/uL (4.70-6.10); Red Cell Dist. Width 18.6 % (11.5-14.5); White Blood Cell Count 9.7 10^3/uL (4.8-10.8)
[2023-08-16 05:33] LABS: Hemoglobin 8.9 g/dL (13.0-18.0)
[2023-08-16 06:03] LABS: Blood Urea Nitrogen 43 mg/dl (9-20); Calcium 8.1 mg/dl (8.4-10.2); Carbon Dioxide 27 mmol/L (22-30); Chloride 100 mmol/L (98-107); Estimated Creatinine Clearance 23 ml/min; Glucose 95 mg/dl (70-99); Potassium 4.5 mmol/L (3.5-5.1); Sodium 134 mmol/L (135-145); eGFR 21.26
--- NOTE | 2023-08-16 08:14 | W.PN.HOSP.TC ---
Today's Communication/Plan
-
Monitor hemoglobin. Monitor renal function.
Assessment / Plan
Assessment / Plan
CVS: S1-S2 normal
Chest: CTA B/L, decreased at bases.
Abdomen: Soft, Mild Left sided tenderness, Bowel sounds present
Extremities: No edema
#Hypovolemic/Hemorrhagic shock
Acute blood loss anemia secondary to retroperitoneal hemorrhage
Left renal artery extravasation status post embolization
-Status post 6 units of PRBC and hemoglobin 7.4 .
-Will give 1 more units now
-Hold aspirin, Eliquis
-Kcentra given to reverse Eliquis
-Hold Lasix, metolazone
-Hold antihypertensives
-Off Levophed now. Goal MAP >65 and if needed restart Levophed.
-Status post arteriogram with finding of large arterial active bleeding in the multiple left kidney status post embolization using coil and Gelfoam. Arteriogram showed many microaneurysm of the left kidney raising concern for vasculitis. ? Risk
factor due to multiple myeloma
-Per oncology patient with amyloid angiopathy most likely etiology of active arterial bleeding
-Autoimmune workup started however seems likely secondary to amyloid angiopathy. INDIO negative. Complements C3 elevated C4 normal. ANCA panel negative.
-CT angio 08/11 PM with large RP hematoma and active extravasation.
-Interventional radiology reevaluated and holding off on embolization the waiting tamponade of the hemorrhoid site, as he may loose renal function with more embolization
-Blood bank has placed incompatible blood because Darzalex makes compatibility testing difficult and patient has received least incompatible blood before.
-Vasculitis serology was negative
-Currently hemoglobin 8.9 so no need for transfusion at the moment.
-Per cardiology might restart aspirin in next 48 hours but no anticoagulation. Probably Watchman device as outpatient.
#OLIVIA on CKD 4
-some degree of creatinine to be elevated with contrast exposure, active arterial bleeding, hypertension, embolization
-Probnp elevated and was on high dose diuretics as OP.
-s/p IVF. Cr continue to uptrend with minimal urinary output.
-Status post HD catheter placement on 08/09 and now started on hemodialysis. Monitor hemodynamics closely as new to HD.
#Decubitus sacral ulcer, unstageable
Wound care consult
#Mild acute thrombocytopenia-resolved
# Hypokalemia Resolved
#Paroxysmal atrial fibrillation with bradycardia
-Holding Eliquis in the setting of active arterial bleed admitted to be held for at least 2 weeks
-Plan to restart amiodarone at lower dose 100mg 3 times weekly per EP.
-Pt understands risk of restarting Eliquis in setting of amyloid angiopathy and hemorrhagic shock in future vs. benefit of prevention of CVA. Pt agreeable to continue to hold Eliquis
-Bradycardia noted-cardiology following and adjusting amiodarone
#CAD status post stents
-Hold aspirin
-Hold isosorbide mononitrate
#Normal ischemic myocardial injury in the setting of CKD/CAD
-Troponin level chronically elevated
#Chronic HFrEF
-Hold metolazone, Lasix
#Essential hypertension
-Hold hydralazine.
#Hyperlipidemia
-Continue statin
#History of recurrent left pleural effusion
#Amyloidosis
#Multiple myeloma on immunotherapy-Patient on Venclexta
-Patient on Darzalex, Venclexta
-when on chemo takes dexamethasone
-Continue prophylactic acyclovir
#Amyloidosis
#Chemotherapy-induced neuropathy-Continue gabapentin
#Gout-Continue allopurinol
#Depression-Continue Lamictal, risperidone
# Cholelithiasis
# Cervical degenerative disc disease/arthritis
#Extensive diverticulosis.Extensive diverticulosis.
#Hypodense lesion in the left lobe of the thyroid for which ultrasound could be performed as OP
#Ex Smoker
#Full code
#DVT prophylaxis�SCDs in setting of hemorrhagic shock
D/W RN
High risk situation given bleeding, heart rate, not able to anticoagulate, amyloidosis.
Total time spent on today's encounter was 52 minutes which included time spent in counseling the patient/family regarding diagnosis and treatment plan as listed above, goals of care, and symptom management. Case was discussed with nursing staff,
specialists, and care coordinators/case management. All labs and imaging personally reviewed by me. Remainder the time spent in detailed review of previous records, lab data, imaging, and other medical provider documentation.
Anticipated Discharge: > 48 hours
Subjective/Interval History
-
Date of Service: August 16, 2023
Patient denies any chest pain or shortness of breath. Denies abdominal pain. Afebrile
Objective Data
-
Labs:
Laboratory Results
08/16/23
05:13
WBC 9.7
Hgb 8.9 L D
Hct 26.7 L
Plt Count 113 L
Sodium 134 L
Potassium 4.5
Chloride 100
Carbon Dioxide 27
BUN 43 H
Creatinine 3.0 H
Glucose 95
Calcium 8.1 L
Vital Signs:
Vital Signs
Temp Pulse Resp BP Pulse Ox
98.6 F 63 17 128/57 99
08/16/23 03:32 08/16/23 04:00 08/16/23 04:00 08/16/23 06:00 08/16/23 06:00
I&O
08/15/23 08/16/23 08/17/23
06:59 06:59 06:59
Intake Total 1240 / 1240 490 / 490
Output Total 50 / 50 200 / 200
Balance 1190 / 1190 290 / 290
--- NOTE | 2023-08-16 08:16 | W.PN.CD ---
Today's Communication / Plan
-
Follow Hb and Cr
ASA 81 to resume hopefully in next 48-72 hrs
NO OAT for lifetime given event- I'll discuss Watchman option in office
Impression / Plan
-
72M with left renal artery hemorrhage and resultant RP hematoma. Developed hypovolemia, hypotension, and OLIVIA on CKD to HD.We are called with significant bradycardia while on amiodarone. PMH: Parkinson's disease, CAD with stenting, HFpEF, HTN,
multiple myeloma, and CKD3b. MRI was done in 2021 as we were concerned about amyloidosis. BM biopsy confirms the presence of amyloid protein. This is myeloma-related. Previously seen by Dr Kerr at [facility].
Abnormal yann angiogram: 'Multiple microaneurysms were seen within the peripheral left renal arteries, which may be seen in the setting of vasculitis. Vasculitis may predispose to spontaneous renal hemorrhage. Consider workup for vasculitis'
Bradycardia, asymptomatic
- Improved- continue current dose of amio
Bleeding
- s/p IR embolization and volume resuscitation, however today Hb is 6.0 consistent with rebleed
- CT scan08/12/2023 persistent area of active bleeding status post embolization.
- H/H 8.9 today after tx 2 u PRBC yesterday
- Agree that current bleeding event and risk for future events means we should stop OAT permanently
- he will live at higher risk for stroke and understands this tradeoff. We can discuss Watchman option in office
- MUST resume ASA 81 mg once bleeding has stopped and he remains with stable Hgb
HFmidrangeEF
- HD plans noted
- eventual GDMT as tolerated (limited in ESRD)
- Was recently on a course of Zaroxolyn for worsening edema. No longer present
CAD
- continue ezetimibe and statin
- recent decline in LVEF
Multiple myeloma with cardiac amyloidosis
- Followed at [facility] and by Dr Crocker
- Has never had a full remission for the MM
HTN - stable
Dyslipidemia - statin
MM with cardiac involvement
OLIVIA on top of CKD
- Cr down to 3.0
- Lower half of kdney required embolization
Parkinson's
Subjective: Feels well
Data:
����� ECHO in APR 2023 with EF 46%, global HK. No sig valve disease.
�������ECHO Dec 2022: EF 55%, MAC/mild MR, abnl strain c/w amyloid
�������Holter : DEC 2022: 48 hrs. Occ VPDs, no VT, rare supraventricular beats, no SVT. Mean HR 66 (35-96). Some Mobitz I AVB- SOB correlates with periods of Mobitz I AVB
�������Cardiac catheterization 08/26/2019: 30% mLAD, 20% in-stent stenosis OM 3, large OM 2 widely patent stent without restenosis, RCA with mild to moderate calcification 30% proximal stenosis, PDA focal 60% mid stenosis, with successful stenting of
80-90% OM 2 with FE
�������ECHO : EF 60-65%, mild to mod MR, PAs 35-40, aortic sclerosis
�������Lexiscan : perfusion normal . EF 45%.
Physical Exam
Vital Signs/Labs
Vital Signs
Temp Pulse Resp BP Pulse Ox
98.6 F 63 17 128/57 99
08/16/23 03:32 08/16/23 04:00 08/16/23 04:00 08/16/23 06:00 08/16/23 06:00
08/15/23 08/16/23 08/17/23
06:59 06:59 06:59
Actual Weight 197 lb 1.492 oz 198 lb 10.184 oz
08/16/23 05:13
08/16/23 05:13
PT 18.8 Sec (11.4-14.6) H 08/08/23 03:07
INR 1.60 08/08/23 03:07
APTT 43.3 Sec (23.4-35.0) H 08/08/23 03:07
Magnesium 2.2 mg/dl (1.6-2.3) 08/12/23 04:21
08/06/23
14:54
[id number] Pept [id number]
Physical Exam
Constitutional: No acute distress
EENT: Anicteric
Cardiovascular: Rhythm & rate is regular and Murmur/rub/gallop absent
Respiratory: Respiratory effort normal and Lungs clear to auscul.
GI: Non tender
Neuro/Psych: AO x 3 and Motor deficits absent
Data Reviewed
-
Date of Service: August 16, 2023
[2023-08-16] MEDS: CRESTOR 10 MG PO (08:19)
[2023-08-16] MEDS: MIRALAX PO (08:19)
[2023-08-16] MEDS: ZYLOPRIM 100 MG PO (08:19)
[2023-08-16] MEDS: COLACE PO ×2 (08:19→19:46)
[2023-08-16] MEDS: SENOKOT 17.1999999999999993 MG PO (08:19)
[2023-08-16] MEDS: LAMICTAL 100 MG PO ×2 (08:20→19:50)
[2023-08-16] MEDS: DESENEX/MITRAZOL/ZEASORB 1 APPLIC TOPICAL ×2 (08:20→19:50)
[2023-08-16] MEDS: ZOVIRAX 200 MG PO ×2 (08:20→19:50)
[2023-08-16] MEDS: NON-FORMULARY ITEM 200 MG PO (08:21)
[2023-08-16] MEDS: PACERONE 100 MG PO (08:25)
[2023-08-16] MEDS: ROXICODONE 5 MG PO ×2 (10:38→22:40)
--- NOTE | 2023-08-16 11:06 | W.PN.URO.CBU ---
Today's Communication / Plan
-
Trend HGB and renal function
HD per nephrology
Assessment / Plan
-
72M with afib, CAD on Eliquis with hemorrhagic shock, spontaneous left renal hemorrhage: clinical and radiographic evidence of ongoing retroperitoneal/renal hemorrhage
s/p selective embolization of L renal artery branch by IR 08/05
- HGB stabilized s/p transfusion 4 units PRBCs, then with recurrent bleeding demonstrated on angiogram 08/12 - responded to transfusion 1 unit on 08/13
- Trend renal function and Hgb. Transfuse as needed. Discussed with the role for repeat embolization should patient become HD unstable
- Hold anticoagulation at least through mid August. Given the presence of multiple other small renal artery aneurysms seen on arteriogram and now recurrent bleed, consideration should be given to permanently discontinuing AC for risk of recurrent life
threatening bleed
Diagnosis
-
Date of Service: August 16, 2023
-
Patient Diagnosis:
Spontaneous retroperitoneal hemorrhage
s/p IR selective coil embolization of accessory renal artery 08/05 with radiographic evidence of recurrent/persistent bleed 08/13/23 with only minimal enlargement of left retroperitoneal hematoma
Renal failure: non-oliguric
Subjective
-
Pain well controlled
HGB stable
No events overnight
Objective
-
Vital Signs
Temp Pulse Resp BP Pulse Ox
98.3 F 70 17 113/86 98
08/16/23 07:30 08/16/23 08:00 08/16/23 08:00 08/16/23 08:00 08/16/23 08:39
Intake and Output
08/15/23 08/16/23 08/17/23
06:59 06:59 06:59
Intake Total 1240 / 1240 490 / 490
Output Total 50 / 50 200 / 200
Balance 1190 / 1190 290 / 290
Intake:
Oral fluids 240 / 240 240 / 240
Blood products 500 / 500
Blood Product Amount Infused ( 500 / 500 250 / 250
mL)
Packed Rbc Leukoreduced Unit 250 / 250
[id number]
Packed Rbc Leukoreduced Unit 250 / 250
[id number]
Packed Rbc Leukoreduced Unit 250 / 250
[id number]
Output:
Urine, Viera 50 / 50
Urine, Voided 200 / 200
Other:
Transfused during hemodialysis?
Packed Rbc Leukoreduced Unit Yes
[id number]
Laboratory Results
08/16/23 05:13
08/16/23 05:13
Physical Exam
-
General - well developed, well nourished, no acute distress
Chest - clear
Abdomen - soft, non-tender
Skin - warm & dry with no rash
Neuro - AOx3, no motor deficits
Extremities - no clubbing, no cyanosis, no edema
--- NOTE | 2023-08-16 11:33 | W.PN.ONC ---
Today's Communication / Plan
-
He may have amyloid deposition in vasculature (amyloid angiopathy), making him prone to bleeding due to vessel fragility multiple aneurysmal defects
Would continue to monitor CBC
Aspirin and apixaban remain on hold
Venetoclax unlikely to be dialyzed (highly protein bound): Safety and efficacy data are currently limited to case reports. However, no supplemental dose or dosage adjustment likely to be necessary based on pharmacokinetic
Viral prophylaxis
Monthly myeloma panel
Pain management
Bowel regimen
Dialysis may be permanent
Follow-up with me in the office
Impression
Impression
left renal artery hemorrhage, spontaneous with rebleed 08/12
AL amyloidosis, Multiple myeloma. July 2023 Mspike stable 0.6, however free light chains slowly rising with ratio now 18 was 5 at the [facility] Venetoclax resumed 08/09/2023
Eliquis for pAfib on hold
ASA of CAD on hold
ABLA s/p 6unit prbc during hospitalization and on epoetin
OLIVIA on CKD, ESRD on HD
HFpEF
Hypovolemic/hemorrhagic shock
Subjective/Objective
Subjective/Objective
Sitting in a chair comfortable.
Vital Signs:
Vital Signs
Temp Pulse Resp BP Pulse Ox
97.3 F 70 17 113/86 98
08/16/23 11:22 08/16/23 08:00 08/16/23 08:00 08/16/23 08:00 08/16/23 08:39
Physical exam
General no acute distress
HEENT, moist mucous membranes no oral lesions, no scleral icterus
Heart no murmur
Pulm clear without rales
Abdomen soft and nontender
Lab Results:
Laboratory Data
WBC 9.7 10^3/uL (4.8-10.8) 08/16/23 05:13
Hgb 8.9 g/dL (13.0-18.0) L D 08/16/23 05:13
Plt Count 113 10^3/uL (130-400) L 08/16/23 05:13
PT 18.8 Sec (11.4-14.6) H 08/08/23 03:07
INR 1.60 08/08/23 03:07
APTT 43.3 Sec (23.4-35.0) H 08/08/23 03:07
eGFR 21.26 08/16/23 05:13
--- NOTE | 2023-08-16 13:10 | PTCARENOTE ---
recieved call from blood bank stating that as of midnight [facility] will not have blood available for pt and that all tests previously done by [facility] will need to be repeated. discussed with Dr Ford.
--- NOTE | 2023-08-16 13:18 | WOUNDNOTE ---
[facility] RN note: Patient on hemodialysis and am told I cannot look at his sacrum during dialysis. Will plan to see later today or tomorrow. Spoke with patient who stated he can turn self in bed and he is aware he should stay off his sacrum. He is
propped on his R semi side lying side. He is on a [facility] air bed.
--- NOTE | 2023-08-16 13:23 | WOUNDNOTE ---
[facility] RN note: Patient on hemodialysis and the hemodialysis nurse confirmed not to look at his sacrum during dialysis. Will plan to see later today or tomorrow. Spoke with patient who stated he can turn self in bed and he is aware he should stay off
his sacrum. He is propped on his L semi side lying side. He is on a Centrella Max air bed. Skin on heels intact. Heels off bed with air chair cushion. +2 LE edema. Appetite poor. He stated he eats about 50% of his meals.
[2023-08-16] MEDS: RETACRIT 10000 UNITS IV (13:47)
--- NOTE | 2023-08-16 13:58 | PTCARENOTE ---
pt currently on dialysis. mediacated with 5 mg roxicodone for left flank and sacral pain with adequate relief reported by patient. wound care consult placed for suspected DTI on sacrum. q 2 hour turn intervention activated.
--- NOTE | 2023-08-16 14:07 | W.PN.NEPH.HD ---
Assessment
-
Seen on HD. no new complaints. VSS, access temp ok
plan for tunnelled CVC
Progress Note - Hemodialysis
-
Date of Service: August 16, 2023
Duration: 30 minutes and 3 hours
Potassium Bath: 3
Calcium Bath: 2.5
Opti-Dialyzer: 160
Ultrafiltration: Other (1kg)
Blood Flow: 400
Dialysate Flow: 600
Heparin: no
EPO: [id number] units
[2023-08-16] MEDS: HEPARIN 2500 UNITS INTRACATH (15:55)
--- NOTE | 2023-08-16 16:56 | CM ---
Patient with Dx Hypovolemic/Hemorrhagic shock, Acute blood loss anemia secondary to retroperitoneal hemorrhage, OLIVIA on CKD 4, PAF with bradycardia. Receiving HD. PT/OT 08/14 recommends skilled rehab.
Phone call to [facility] Final Expense Agent [facility] this am to let him know that [facility]AM has not received callback from Assigned Coordinator [facility] for several days, and we need confirmation whether [facility] can accept sooner than 08/22 or if patient should
stay with [facility]. Venkat will contact him and ask him to call .
Talita Dubois CM Director updated re; above.
Met with patient; he has no preference of [facility] vs [place] locations. Discussed PT/OT recommendations- patient is declining SNF and VN for PT/OT. He feels he will be able to ambulate well at home on his own.
Plan follow up with [facility] re; referral to [facility] vs [facility].
[2023-08-16] MEDS: SENOKOT PO (19:46)
[2023-08-16] MEDS: ZETIA 10 MG PO (20:57)
[2023-08-16] MEDS: RISPERDAL 0.25 MG PO (20:57)
[2023-08-17] VITALS (12 sets, daily range): BP systolic 61–145; BP diastolic 54–72; BMI 28.0
--- NOTE | 2023-08-17 02:10 | PTCARENOTE ---
assumed care of patient, able to make needs known. son at bedside asking questions, requested to be added to patient contact list. able to make needs known. pt stated sacrum hurting him, encouraged patient to turn bottom, stated he is. foam applied
to bottom, chair foam given to patient. pt placed back to bed, encouraged to lay on side to be off bottom.
--- NOTE | 2023-08-17 06:28 | PTCARENOTE ---
pt with no AM labs ordered, notified covering MANAGER DIESEL- no new orders at this time.
[2023-08-17] MEDS: ROXICODONE 5 MG PO ×2 (06:33→18:02)
--- NOTE | 2023-08-17 08:01 | W.PN.HOSP.TC ---
Today's Communication/Plan
-
Permanent HD catheter today. Continue to monitor hemoglobin.
Assessment / Plan
Assessment / Plan
Physical exam:
General: Acute and chronically ill
HEENT: Normocephalic, Atraumatic and Moist Mucous Membranes
Respiratory: Decreased breath sounds bilateral; Clear to Auscultation; Negative Wheezes, Rales or Rhonchi
Cardiac: Regular Rhythm and S1/S2
GI: Soft, Nontender and Nondistended
Musculoskeletal: Sacral unstageable ulcer. No Clubbing, No Cyanosis. Bilateral Edema
Neuro: Awake, Alert and Oriented
Psych: Calm
A/P:
#Hypovolemic/Hemorrhagic shock
Acute blood loss anemia secondary to retroperitoneal hemorrhage
Left renal artery extravasation status post embolization
-Per hematology might be an element of amyloid deposition on vasculature which makes him prone to bleeding and aneurysmal defect and that seems to make sense.
-Continue to hold anticoagulation indefinitely in light of life-threatening bleed.
-Hemoglobin 8.6 today. Trend in a.m.
-If hemoglobin remains stable and no complications post vascular access, we can restart aspirin tomorrow. Discussed with cardiology.
Prior to today:
-Status post 6 units of PRBC and hemoglobin 7.4 .
-Will give 1 more units now
-Hold aspirin, Eliquis
-Kcentra given to reverse Eliquis
-Hold Lasix, metolazone
-Hold antihypertensives
-Off Levophed now. Goal MAP >65 and if needed restart Levophed.
-Status post arteriogram with finding of large arterial active bleeding in the multiple left kidney status post embolization using coil and Gelfoam. Arteriogram showed many microaneurysm of the left kidney raising concern for vasculitis. ? Risk
factor due to multiple myeloma
-Per oncology patient with amyloid angiopathy most likely etiology of active arterial bleeding
-Autoimmune workup started however seems likely secondary to amyloid angiopathy. INDIO negative. Complements C3 elevated C4 normal. ANCA panel negative.
-CT angio 08/11 PM with large RP hematoma and active extravasation.
-Interventional radiology reevaluated and holding off on embolization the waiting tamponade of the hemorrhoid site, as he may loose renal function with more embolization
-Blood bank has placed incompatible blood because Darzalex makes compatibility testing difficult and patient has received least incompatible blood before.
-Vasculitis serology was negative
-Currently hemoglobin 8.9 so no need for transfusion at the moment.
-Per cardiology might restart aspirin in next 48 hours but no anticoagulation. Probably Watchman device as outpatient.
#OLIVIA on CKD 4/end-stage renal disease:
-Plan for tunneled catheter today since he will require permanent hemodialysis moving forward
-Remove temporary catheter today
-HD per renal
Prior to today:
-some degree of creatinine to be elevated with contrast exposure, active arterial bleeding, hypertension, embolization
-Probnp elevated and was on high dose diuretics as OP.
-s/p IVF. Cr continue to uptrend with minimal urinary output.
-Status post HD catheter placement on 08/09 and now started on hemodialysis. Monitor hemodynamics closely as new to HD.
#Decubitus sacral ulcer, unstageable
-Wound care consulted yesterday and orders in place.
#Paroxysmal atrial fibrillation with bradycardia
-Continue antiarrhythmics, amiodarone
-Appreciated cardiology follow-up
-Holding Eliquis in the setting of active arterial bleed admitted to be held for at least 2 weeks
-Plan to restart amiodarone at lower dose 100mg 3 times weekly per EP.
-Pt understands risk of restarting Eliquis in setting of amyloid angiopathy and hemorrhagic shock in future vs. benefit of prevention of CVA. Pt agreeable to continue to hold Eliquis
-Bradycardia noted-cardiology following and adjusting amiodarone
# Multiple myeloma with cardiac amyloidosis
-Follows up at [facility] and also locally with Dr. Crocker
#Mild acute thrombocytopenia-resolved
# Hypokalemia Resolved
#CAD status post stents
-Hold aspirin
-Hold isosorbide mononitrate
#Normal ischemic myocardial injury in the setting of CKD/CAD
-Troponin level chronically elevated
#Chronic HFrEF
-Hold metolazone, Lasix
-GDMT when and if tolerated
#Essential hypertension
-Hold hydralazine.
#Hyperlipidemia
-Continue statin and ezetimibe
#History of recurrent left pleural effusion
#Amyloidosis
#Multiple myeloma on immunotherapy-Patient on Venclexta
-Patient on Darzalex, Venclexta
-when on chemo takes dexamethasone
-Continue prophylactic acyclovir
#Amyloidosis
#Chemotherapy-induced neuropathy-Continue gabapentin
#Gout-Continue allopurinol
#Depression-Continue Lamictal, risperidone
# Cholelithiasis
# Cervical degenerative disc disease/arthritis
#Extensive diverticulosis.Extensive diverticulosis.
#Hypodense lesion in the left lobe of the thyroid for which ultrasound could be performed as OP
#Ex Smoker
#Full code
#DVT prophylaxis�SCDs in setting of recent hemorrhagic shock
Total time spent on today's encounter was 52 minutes which included time spent in counseling the patient/family regarding diagnosis and treatment plan as listed above, goals of care, and symptom management. Case was discussed with nursing staff,
specialists, and care coordinators/case management. All labs and imaging personally reviewed by me. Remainder the time spent in detailed review of previous records, lab data, imaging, and other medical provider documentation.
Anticipated Discharge: > 48 hours
Subjective/Interval History
-
Date of Service: August 17, 2023
Patient denies chest pain or shortness of breath. Some abdominal discomfort. No nausea or vomiting.
Objective Data
-
Vital Signs:
Vital Signs
Temp Pulse Resp BP Pulse Ox
98.2 F 69 23 141/63 98
08/17/23 07:55 08/17/23 06:00 08/17/23 06:00 08/17/23 06:00 08/17/23 06:00
I&O
08/16/23 08/17/23 08/18/23
06:59 06:59 06:59
Intake Total 490 / 490 240 / 240
Output Total 200 / 200
Balance 290 / 290 240 / 240
[2023-08-17] MEDS: CRESTOR 10 MG PO (08:09)
[2023-08-17] MEDS: LAMICTAL 100 MG PO ×2 (08:09→20:34)
[2023-08-17] MEDS: MIRALAX 17 GRAMS PO (08:10)
[2023-08-17] MEDS: ZOVIRAX 200 MG PO ×2 (08:10→20:34)
[2023-08-17] MEDS: SENOKOT 17.1999999999999993 MG PO ×2 (08:10→20:34)
[2023-08-17] MEDS: COLACE 100 MG PO ×2 (08:10→20:33)
[2023-08-17] MEDS: ZYLOPRIM 100 MG PO (08:10)
[2023-08-17] MEDS: DESENEX/MITRAZOL/ZEASORB 1 APPLIC TOPICAL ×2 (08:10→20:35)
[2023-08-17] MEDS: NON-FORMULARY ITEM 200 MG PO (08:11)
--- NOTE | 2023-08-17 09:14 | W.PN.CD ---
Addendum entered and electronically signed by Kvng Melo MD 08/17/23 16:14:
I saw and examined the patient.
The CLEANING HANDYMAN's note was reviewed and I agree with the note.
Comment: He is sedated and ventilated with stable hemodynamics post surgery day 0. He will continue current postop care plan.
Original Note:
Today's Communication / Plan
-
continue to monitor hgb
resume asa when ok with team
monitor bp
Impression / Plan
-
72M with left renal artery hemorrhage and resultant RP hematoma. Developed hypovolemia, hypotension, and OLIVIA on CKD to HD.We are called with significant bradycardia while on amiodarone. PMH: Parkinson's disease, CAD with stenting, HFpEF, HTN,
multiple myeloma, and CKD3b. MRI was done in 2021 as we were concerned about amyloidosis. BM biopsy confirms the presence of amyloid protein. This is myeloma-related. Previously seen by Dr Kerr at [facility].
Abnormal yann angiogram: 'Multiple microaneurysms were seen within the peripheral left renal arteries, which may be seen in the setting of vasculitis. Vasculitis may predispose to spontaneous renal hemorrhage. Consider workup for vasculitis'
Bradycardia, asymptomatic
- Improved- continue current dose of amio
Bleeding
- s/p IR embolization and volume resuscitation, however today Hb is 6.0 consistent with rebleed
- CT scan08/12/2023 persistent area of active bleeding status post embolization.
- H/H 8.9 today after tx 2 u PRBC yesterday
- Agree that current bleeding event and risk for future events means we should stop OAT permanently
- he will live at higher risk for stroke and understands this tradeoff. We can discuss Watchman option in office
- MUST resume ASA 81 mg once bleeding has stopped and he remains with stable Hgb
HFmidrangeEF
- HD plans noted
- eventual GDMT as tolerated (limited in ESRD)
- Was recently on a course of Zaroxolyn for worsening edema. No longer present
CAD
- continue ezetimibe and statin
- recent decline in LVEF
Multiple myeloma with cardiac amyloidosis
- Followed at [facility] and by Dr Crocker
- Has never had a full remission for the MM
HTN - stable, not on medications currrently. Resume medications when able.
Dyslipidemia - statin
MM with cardiac involvement
OLIVIA on top of CKD
-on HD
- Cr down to 3.0
- Lower half of kidney required embolization
Parkinson's
Subjective: Feels well, no complaints today
Data:
����� ECHO in APR 2023 with EF 46%, global HK. No sig valve disease.
�������ECHO Dec 2022: EF 55%, MAC/mild MR, abnl strain c/w amyloid
�������Holter : DEC 2022: 48 hrs. Occ VPDs, no VT, rare supraventricular beats, no SVT. Mean HR 66 (35-96). Some Mobitz I AVB- SOB correlates with periods of Mobitz I AVB
�������Cardiac catheterization 08/26/2019: 30% mLAD, 20% in-stent stenosis OM 3, large OM 2 widely patent stent without restenosis, RCA with mild to moderate calcification 30% proximal stenosis, PDA focal 60% mid stenosis, with successful stenting of
80-90% OM 2 with FE
�������ECHO : EF 60-65%, mild to mod MR, PAs 35-40, aortic sclerosis
�������Lexiscan : perfusion normal . EF 45%.
Physical Exam
Vital Signs/Labs
Vital Signs
Temp Pulse Resp BP Pulse Ox
98.2 F 69 23 141/63 98
08/17/23 07:55 08/17/23 06:00 08/17/23 06:00 08/17/23 06:00 08/17/23 06:00
08/16/23 08/17/23 08/18/23
06:59 06:59 06:59
Actual Weight 90.1 kg 88.6 kg
PT 18.8 Sec (11.4-14.6) H 08/08/23 03:07
INR 1.60 08/08/23 03:07
APTT 43.3 Sec (23.4-35.0) H 08/08/23 03:07
Magnesium 2.2 mg/dl (1.6-2.3) 08/12/23 04:21
08/06/23
14:54
[id number] Pept [id number]
Physical Exam
Constitutional: No acute distress
Cardiovascular: Rhythm & rate is regular, JVD pressure is normal and Pedal edema present (1+ pitting bl with tubigrips)
Respiratory: Respiratory effort normal, Lungs clear to auscul. and Wheeze Absent
Neuro/Psych: AO x 3
Data Reviewed
-
Date of Service: August 17, 2023
Medical Decision Making: Review of Case with other Provider (Dr Ford resume aspirin when able)
EKG: Other (tele sinus )
[2023-08-17 09:41] LABS: % Basophils 0.2 % (0-2); % Immature Granulocytes 0.3 % (0-0.5); % Lymphocytes 3.3 % (20.5-51.1); % Neutrophils 89.2 % (42.2-75.2); Absolute Lymphocytes 0.2 10^3/uL (1.2-3.4); Absolute Monocytes 0.4 10^3/uL (0.1-0.6); Absolute Neutrophils 5.5 10^3/uL (1.4-6.5); Hematocrit 26.9 % (39.0-52.0); Hemoglobin 8.6 g/dL (13.0-18.0); Mean Corpuscular Hgb 29.2 pg (27.0-31.0); Mean Corpuscular Volume 91.2 fL (80.0-94.0); Mean Platelet Volume 9.9 fL (7.4-10.4); Nucleated Red Blood Cells % 0.5 % (-); Platelet Count 102 10^3/uL (130-400); Red Blood Cell Count 2.95 10^6/uL (4.70-6.10); Red Cell Dist. Width 18.6 % (11.5-14.5); White Blood Cell Count 6.2 10^3/uL (4.8-10.8)
--- NOTE | 2023-08-17 10:00 | WOUNDNOTE ---
L 2nd toe tip
--- NOTE | 2023-08-17 10:07 | WOUNDNOTE ---
[facility] RN note: Patient admitted with hemorrhagic shock, retroperitoneal hemorrhage. Patient new to HD.
See H&P for complete history.
PMH: CAD with stents, HF, a fib, CKD3b, multiple myeloma, amyloidosis, HTN, gout, anemia, L pleural effusion, chemo induced neuropathy, depression.
Wound Location and type/assessment: Patient developed a stage 2 sacral/coccyx pressure injury. He can move self but hadn't been until recently. He has a small scab near what appears to be a mild ingrown R great toenail. +2 LE edema. Pedal pulses
heard via portable Doppler.
Appetite: fair.
Pressure redistribution devices in place: Centrella Max air bed. Air chair cushions.
Plan: Silicone border foam changed on sacrum. Instructed patient pressure injury prevention measures.
Will confirm orders with Dr. Ford requesting local wound care, knee high Tubigrip. Discussed with JOLEEN Galarza. Instructed patient to make appointment with a greens laborer for presumed ingrown toenail.
Care plan to be updated and will follow as needed.
Note to case management requested for discharge: VN if goes home.
Recommend follow up at wound care center upon discharge.
[2023-08-17 11:04] LABS: Blood Urea Nitrogen 32 mg/dl (9-20); Calcium 8.1 mg/dl (8.4-10.2); Carbon Dioxide 30 mmol/L (22-30); Chloride 101 mmol/L (98-107); Estimated Creatinine Clearance 26 ml/min; Glucose 116 mg/dl (70-99); Potassium 4.2 mmol/L (3.5-5.1); Sodium 136 mmol/L (135-145); eGFR 25.25
[2023-08-17] MEDS: VANCOCIN 200 IV (14:15)
--- NOTE | 2023-08-17 15:07 | W.PN.NEPH.PH ---
Today's Communication / Plan
-
- HD tomorrow
Assessment/Plan
-
IMP:
OLIVIA on CKD Stage 4 baseline cr 1.8-2.5
CAD with cardiac stents
Paroxysmal atrial fibrillation
Second-degree AV block Mobitz type 1
Heart failure with preserved ejection fraction
Hypotension
AL Amyloidosis
Multiple Myeloma
Left inferior renal artery bleed status postembolization 08/06/2023
Plan:
transfuse as needed
follow Hgb
HD tomorrow, unfortunately, likely that he will be permanent ESRD
will need to move temp CVC to left tunnelled eventually
-
-
Date of Service: August 17, 2023
CC / HPI / ROS
-
Chief Complaint:
OLIVIA on CKD
History of Present Illness:
OLIVIA/Cr on HD
tolerated HD yesterday
K stable
BP stable
Hgb stable 8.6
worse left flank pain; CT 08/11 showing active bleed
Review of Systems:
oliguric at this time
no CP/SOB
Labs
-
Labs:
WBC 6.2 10^3/uL (4.8-10.8) 08/17/23 09:19
RBC 2.95 10^6/uL (4.70-6.10) L 08/17/23 09:19
Hgb 8.6 g/dL (13.0-18.0) L 08/17/23 09:19
Hct 26.9 % (39.0-52.0) L 08/17/23 09:19
Plt Count 102 10^3/uL (130-400) L 08/17/23 09:19
Sodium 136 mmol/L (135-145) 08/17/23 09:19
Potassium 4.2 mmol/L (3.5-5.1) 08/17/23 09:19
Chloride 101 mmol/L (98-107) 08/17/23 09:19
Carbon Dioxide 30 mmol/L (22-30) 08/17/23 09:19
BUN 32 mg/dl (9-20) H 08/17/23 09:19
Creatinine 2.6 mg/dL (0.7-1.3) H 08/17/23 09:19
eGFR 25.25 08/17/23 09:19
Glucose 116 mg/dl (70-99) H 08/17/23 09:19
Calcium 8.1 mg/dl (8.4-10.2) L 08/17/23 09:19
Phosphorus 3.3 mg/dl (2.5-4.5) 08/12/23 04:21
Tvc-O-Cgnidpsrodn Pept 18168 pg/ml 08/06/23 14:54
Albumin 2.7 g/dl (3.5-5.0) L 08/07/23 04:14
Physical Exam
-
Vital Signs:
Vital Signs
Temp Pulse Resp BP Pulse Ox
98.2 F 61 16 145/69 98
08/17/23 12:57 08/17/23 12:57 08/17/23 12:57 08/17/23 12:57 08/17/23 12:57
Cardiovascular:: Regular rate and rhythm
Respiratory:: Bilateral: Coarse
Lung Excursion:: Normal
Abdomen:: Nontender and Soft
Bowel Sounds:: Normal
Extremity Edema:: None: Bilateral:
Viera Catheter: No
--- NOTE | 2023-08-17 17:06 | CM ---
Patient for tunnelled cath today, plan to then proceed with securing outpatient HD at [facility], [place] or [place].
Plan; To assist with setting up outpatient HD.
[2023-08-17] MEDS: RISPERDAL 0.25 MG PO (21:56)
[2023-08-17] MEDS: ZETIA 10 MG PO (21:56)
[2023-08-17] MEDS: ROXICODONE 2.5 MG PO (23:06)
--- NOTE | 2023-08-17 23:41 | PTCARENOTE ---
Pt post L tunneled IJ HD cath placement today. C/o level 6 pain at cath site, see MAR for intervention. Otherwise pt denies complaints. Assessment as documented. Pt continues with constipation, agreeable to take prescribed bowel regimen. VSS. Pt
prefers to sleep in recliner chair. This RN educated pt about importance of turning, repositioning frequently to prevent further skin breakdown. Q2T intervention in place. Call angelo within reach.
[2023-08-18] VITALS (26 sets, daily range): BP systolic 122–161; BP diastolic 52–104; BMI 28.3
[2023-08-18 04:17] LABS: Hematocrit 25.7 % (39.0-52.0); Hemoglobin 8.3 g/dL (13.0-18.0); Mean Corp Hgb Conc. 32.3 g/dL (33.0-37.0); Mean Corpuscular Hgb 29.4 pg (27.0-31.0); Mean Corpuscular Volume 91.1 fL (80.0-94.0); Mean Platelet Volume 10.3 fL (7.4-10.4); Platelet Count 100 10^3/uL (130-400); Red Blood Cell Count 2.82 10^6/uL (4.70-6.10); Red Cell Dist. Width 18.4 % (11.5-14.5)
[2023-08-18 04:39] LABS: Blood Urea Nitrogen 45 mg/dl (9-20); Calcium 8.2 mg/dl (8.4-10.2); Carbon Dioxide 29 mmol/L (22-30); Chloride 100 mmol/L (98-107); Estimated Creatinine Clearance 22 ml/min; Glucose 97 mg/dl (70-99); Potassium 4.3 mmol/L (3.5-5.1); Sodium 134 mmol/L (135-145); eGFR 20.44
[2023-08-18] MEDS: SENOKOT 17.1999999999999993 MG PO ×2 (07:36→19:55)
[2023-08-18] MEDS: ZYLOPRIM 100 MG PO (07:36)
[2023-08-18] MEDS: CRESTOR 10 MG PO (07:36)
[2023-08-18] MEDS: LAMICTAL 100 MG PO ×2 (07:36→19:55)
[2023-08-18] MEDS: COLACE 100 MG PO ×2 (07:36→19:55)
[2023-08-18] MEDS: ZOVIRAX 200 MG PO ×2 (07:36→19:55)
[2023-08-18] MEDS: MIRALAX 17 GRAMS PO (07:37)
[2023-08-18] MEDS: DESENEX/MITRAZOL/ZEASORB 1 APPLIC TOPICAL ×2 (07:37→19:55)
[2023-08-18] MEDS: NON-FORMULARY ITEM 2 MG PO (07:37)
[2023-08-18] MEDS: PACERONE PO (08:18)
--- NOTE | 2023-08-18 10:30 | W.PN.HOSP.TC ---
Today's Communication/Plan
-
Hemodialysis initial
Monitor urine output.
Monitor hemoglobin.
Assessment / Plan
Assessment / Plan
A/P:
#Hypovolemic/Hemorrhagic shock
Acute blood loss anemia secondary to retroperitoneal hemorrhage
Left renal artery extravasation status post embolization
-Per hematology might be an element of amyloid deposition on vasculature which makes him prone to bleeding and aneurysmal defect and that seems to make sense.
-Continue to hold anticoagulation indefinitely in light of life-threatening bleed.
-Hemoglobin 8.3 today.
-If hemoglobin remains stable and no complications post vascular access, we can restart aspirin tomorrow. Discussed with cardiology.
-Status post 6 units of PRBC and hemoglobin 7.4 .
-Will give 1 more units now
-Hold aspirin, Eliquis
-Kcentra given to reverse Eliquis
-Hold Lasix, metolazone
-Hold antihypertensives
-Off Levophed now. Goal MAP >65 and if needed restart Levophed.
-Status post arteriogram with finding of large arterial active bleeding in the multiple left kidney status post embolization using coil and Gelfoam. Arteriogram showed many microaneurysm of the left kidney raising concern for vasculitis. ? Risk
factor due to multiple myeloma
-Per oncology patient with amyloid angiopathy most likely etiology of active arterial bleeding
-Autoimmune workup started however seems likely secondary to amyloid angiopathy. INDIO negative. Complements C3 elevated C4 normal. ANCA panel negative.
-CT angio 08/11 PM with large RP hematoma and active extravasation.
-Interventional radiology reevaluated and holding off on embolization the waiting tamponade of the hemorrhoid site, as he may loose renal function with more embolization
-Blood bank has placed incompatible blood because Darzalex makes compatibility testing difficult and patient has received least incompatible blood before.
-Vasculitis serology was negative
-Currently hemoglobin 8.9 so no need for transfusion at the moment.
-Per cardiology might restart aspirin in next 48 hours but no anticoagulation. Probably Watchman device as outpatient.
#OLIVIA on CKD 4/end-stage renal disease:
Remains oliguric
-some degree of creatinine to be elevated with contrast exposure, active arterial bleeding, hypertension, embolization
-Probnp elevated and was on high dose diuretics as OP.
-s/p IVF. Cr continue to uptrend with minimal urinary output.
-Status post HD catheter placement on 08/09 and now started on hemodialysis. Monitor hemodynamics closely as new to HD.
-Tunneled catheter placed on 08/16
-HD initiated on 08/17
#Decubitus sacral ulcer, unstageable
-Wound care consulted yesterday and orders in place.
#Paroxysmal atrial fibrillation with bradycardia
-Continue antiarrhythmics, amiodarone
-Appreciated cardiology follow-up
-Holding Eliquis in the setting of active arterial bleed admitted to be held for at least 2 weeks
-Plan to restart amiodarone at lower dose 100mg 3 times weekly per EP.
-Pt understands risk of restarting Eliquis in setting of amyloid angiopathy and hemorrhagic shock in future vs. benefit of prevention of CVA. Pt agreeable to continue to hold Eliquis
-Bradycardia noted-cardiology following and adjusting amiodarone
# Multiple myeloma with cardiac amyloidosis
-Follows up at [facility] and also locally with Dr. Crocker
#Mild acute thrombocytopenia-resolved
# Hypokalemia Resolved
#CAD status post stents
-Hold aspirin
-Hold isosorbide mononitrate
#Normal ischemic myocardial injury in the setting of CKD/CAD
-Troponin level chronically elevated
#Chronic HFrEF
-Hold metolazone, Lasix
-GDMT when and if tolerated
#Essential hypertension
-Hold hydralazine.
#Hyperlipidemia
-Continue statin and ezetimibe
#History of recurrent left pleural effusion
#Amyloidosis
#Multiple myeloma on immunotherapy-Patient on Venclexta
-Patient on Darzalex, Venclexta
-when on chemo takes dexamethasone
-Continue prophylactic acyclovir
#Amyloidosis
#Chemotherapy-induced neuropathy-Continue gabapentin
#Gout-Continue allopurinol
#Depression-Continue Lamictal, risperidone
# Cholelithiasis
# Cervical degenerative disc disease/arthritis
#Extensive diverticulosis.Extensive diverticulosis.
#Hypodense lesion in the left lobe of the thyroid for which ultrasound could be performed as OP
#Ex Smoker
#Full code
#DVT prophylaxis�SCDs in setting of recent hemorrhagic shock
Total time spent on today's encounter was 52 minutes which included time spent in counseling the patient/family regarding diagnosis and treatment plan as listed above, goals of care, and symptom management. Case was discussed with nursing staff,
specialists, and care coordinators/case management. All labs and imaging personally reviewed by me. Remainder the time spent in detailed review of previous records, lab data, imaging, and other medical provider documentation.
Anticipated Discharge: > 48 hours
Subjective/Interval History
-
Date of Service: August 18, 2023
Objective Data
-
Labs:
Laboratory Results
08/18/23
04:03
WBC 6.0
Hgb 8.3 L
Hct 25.7 L
Plt Count 100 L
Sodium 134 L
Potassium 4.3
Chloride 100
Carbon Dioxide 29
BUN 45 H
Creatinine 3.1 H
Glucose 97
Calcium 8.2 L
Vital Signs:
Vital Signs
Temp Pulse Resp BP Pulse Ox
98.6 F 68 20 143/90 98
08/18/23 07:00 08/18/23 08:45 08/18/23 08:45 08/18/23 08:45 08/18/23 10:18
I&O
08/17/23 08/18/23 08/19/23
06:59 06:59 06:59
Intake Total 240 / 240 720 / 720
Output Total 200 / 200
Balance 240 / 240 520 / 520
Physical Exam
-
General: Well Developed and No Apparent Distress
HEENT: Normocephalic, Atraumatic and Moist Mucous Membranes
Respiratory: Clear to Auscultation
Cardiac: Regular Rhythm and S1/S2; Negative Murmur, Rub or Gallop
GI: Soft, Nontender, Nondistended and Normal Bowel Sounds; Negative Organomegaly
Rectal: Deferred by Provider
Musculoskeletal: No Clubbing, No Cyanosis and No Edema
Skin: Negative Rash
Neuro: Awake, Alert, Oriented, AO x 3 and Nonfocal/Grossly Intact
[2023-08-18] MEDS: RETACRIT 8000 UNITS IV (11:25)
[2023-08-18] MEDS: HEPARIN 4300 UNITS INTRACATH (12:17)
--- NOTE | 2023-08-18 13:22 | W.PN.NEPH.HD ---
Assessment
-
feeling well
TDC placed
Progress Note - Hemodialysis
-
Date of Service: August 18, 2023
Duration: 30 minutes and 3 hours
Potassium Bath: 3
Calcium Bath: 2.5
Opti-Dialyzer: 160
Ultrafiltration: Other
Blood Flow: 400
Dialysate Flow: 600
EPO: 8K
--- NOTE | 2023-08-18 14:37 | W.PN.CD ---
Today's Communication / Plan
-
resume IMDUR 30mg daily tomorrow
resume aspirin 81 mg when able
Impression / Plan
-
72M with left renal artery hemorrhage and resultant RP hematoma. Developed hypovolemia, hypotension, and OLIVIA on CKD to HD.We are called with significant bradycardia while on amiodarone. PMH: Parkinson's disease, CAD with stenting, HFpEF, HTN,
multiple myeloma, and CKD3b. MRI was done in 2021 as we were concerned about amyloidosis. BM biopsy confirms the presence of amyloid protein. This is myeloma-related. Previously seen by Dr Kerr at [facility].
Abnormal renal angiogram: 'Multiple microaneurysms were seen within the peripheral left renal arteries, which may be seen in the setting of vasculitis. Vasculitis may predispose to spontaneous renal hemorrhage. Consider workup for vasculitis'
Bradycardia, asymptomatic
- Improved- continue current dose of amio
Bleeding
- s/p IR embolization and volume resuscitation, however today Hb is 6.0 consistent with rebleed
- CT scan08/12/2023 persistent area of active bleeding status post embolization.
- H/H 8.9 today after tx 2 u PRBC yesterday
- Agree that current bleeding event and risk for future events means we should stop OAT permanently
- he will live at higher risk for stroke and understands this tradeoff. We can discuss Watchman option in office
- MUST resume ASA 81 mg once bleeding has stopped and he remains with stable Hgb
HFmidrangeEF
- had HD today
- eventual GDMT as tolerated (limited in ESRD)
-will add back IMDUR eventual hydral if able
CAD
- continue ezetimibe and statin
- recent decline in LVEF
Multiple myeloma with cardiac amyloidosis
- Followed at [facility] and by Dr Crocker
- Has never had a full remission for the MM
HTN - stable, not on medications currrently. Resume medications when able.
Dyslipidemia - statin
MM with cardiac involvement
OLIVIA on top of CKD
-on HD
- Cr down to 3.0
- Lower half of kidney required embolization
Parkinson's
Subjective: Feels well, no complaints today, had HD without issue
Data:
����� ECHO in APR 2023 with EF 46%, global HK. No sig valve disease.
�������ECHO Dec 2022: EF 55%, MAC/mild MR, abnl strain c/w amyloid
�������Holter : DEC 2022: 48 hrs. Occ VPDs, no VT, rare supraventricular beats, no SVT. Mean HR 66 (35-96). Some Mobitz I AVB- SOB correlates with periods of Mobitz I AVB
�������Cardiac catheterization 08/26/2019: 30% mLAD, 20% in-stent stenosis OM 3, large OM 2 widely patent stent without restenosis, RCA with mild to moderate calcification 30% proximal stenosis, PDA focal 60% mid stenosis, with successful stenting of
80-90% OM 2 with FE
�������ECHO : EF 60-65%, mild to mod MR, PAs 35-40, aortic sclerosis
�������Lexiscan : perfusion normal . EF 45%.
Physical Exam
Vital Signs/Labs
Vital Signs
Temp Pulse Resp BP Pulse Ox
98.7 F 68 23 146/74 97
08/18/23 11:00 08/18/23 14:00 08/18/23 14:00 08/18/23 14:00 08/18/23 14:00
08/17/23 08/18/23 08/19/23
06:59 06:59 06:59
Actual Weight 88.6 kg 89.6 kg
08/18/23 04:03
08/18/23 04:03
PT 18.8 Sec (11.4-14.6) H 08/08/23 03:07
INR 1.60 08/08/23 03:07
APTT 43.3 Sec (23.4-35.0) H 08/08/23 03:07
Magnesium 2.2 mg/dl (1.6-2.3) 08/12/23 04:21
08/06/23
14:54
Njx-V-Nynnfficiei Pept [id number]
Physical Exam
Constitutional: No acute distress
Cardiovascular: Rhythm & rate is regular, Systolic murmur absent, Diastolic murmur absent and Pedal edema present (trace b/l)
Respiratory: Respiratory effort normal, Lungs clear to auscul., Wheeze Absent, Crackles Absent and Rhonchi Absent
Neuro/Psych: AO x 3
Data Reviewed
-
Date of Service: August 18, 2023
Medical Decision Making: Review of Case with other Provider (Dr Connors adding back IMDUR, ?resume asa. Spoke to nursing, please give amiodarone)
EKG: Other (tele with NSR )
[2023-08-18] MEDS: PACERONE 100 MG PO (15:30)
[2023-08-18] MEDS: LOW STRENGTH ASPIRIN 81 MG PO (15:50)
[2023-08-18] MEDS: ZETIA 10 MG PO (19:55)
[2023-08-18] MEDS: RISPERDAL 0.25 MG PO (19:55)
[2023-08-19] VITALS (13 sets, daily range): BP systolic 126–161; BP diastolic 59–100; PULSE 77; O2SAT 99; BMI 27.7
[2023-08-19] MEDS: ROXICODONE 5 MG PO (00:03)
[2023-08-19 04:05] LABS: % Basophils 0.5 % (0-2); % Immature Granulocytes 0.3 % (0-0.5); % Lymphocytes 6.1 % (20.5-51.1); % Neutrophils 85.1 % (42.2-75.2); Absolute Lymphocytes 0.4 10^3/uL (1.2-3.4); Absolute Monocytes 0.5 10^3/uL (0.1-0.6); Hematocrit 25.2 % (39.0-52.0); Hemoglobin 8.2 g/dL (13.0-18.0); Mean Corp Hgb Conc. 32.5 g/dL (33.0-37.0); Mean Corpuscular Hgb 29.2 pg (27.0-31.0); Mean Corpuscular Volume 89.7 fL (80.0-94.0); Mean Platelet Volume 10.5 fL (7.4-10.4); Nucleated Red Blood Cells % 0 % (-); Platelet Count 106 10^3/uL (130-400); Red Blood Cell Count 2.81 10^6/uL (4.70-6.10); Red Cell Dist. Width 18.4 % (11.5-14.5); White Blood Cell Count 5.9 10^3/uL (4.8-10.8)
[2023-08-19 04:58] LABS: Blood Urea Nitrogen 29 mg/dl (9-20); Calcium 8.1 mg/dl (8.4-10.2); Carbon Dioxide 28 mmol/L (22-30); Chloride 102 mmol/L (98-107); Estimated Creatinine Clearance 30 ml/min; Glucose 84 mg/dl (70-99); Potassium 3.7 mmol/L (3.5-5.1); Sodium 136 mmol/L (135-145); eGFR 29.25
--- NOTE | 2023-08-19 05:38 | PTCARENOTE ---
NO acute events overnight. PRN oxycodone given for pain. AM hgb 8.2.
--- NOTE | 2023-08-19 08:07 | W.PN.HOSP.TC ---
Today's Communication/Plan
-
reorder PT/OT--last seen 08/14 and recommending SNF yet CM trying to get OP HD set up....
restart meds as per cards
no anticoagulation moving forward
Assessment / Plan
Assessment / Plan
A/P:
#Hypovolemic/Hemorrhagic shock
Acute blood loss anemia secondary to retroperitoneal hemorrhage --from spontaneous left renal artery hemorrhage--Left renal artery extravasation status post embolization
-Per hematology might be an element of amyloid deposition on vasculature which makes him prone to bleeding and aneurysmal defect and that seems to make sense.
-Continue to hold anticoagulation indefinitely in light of life-threatening bleed.
-Hemoglobin 8.3 today.
-asa restarted
-Status post 6 units of PRBC
-Kcentra was given to reverse Eliquis
-Holding Lasix, metolazone
-Holding antihypertensives
-Off Levophed now. Goal MAP >65 and if needed restart Levophed.
-Status post arteriogram with finding of large arterial active bleeding in the multiple left kidney status post embolization using coil and Gelfoam. Arteriogram showed many microaneurysm of the left kidney raising concern for vasculitis. ? Risk
factor due to multiple myeloma
-Per oncology patient with amyloid angiopathy most likely etiology of active arterial bleeding
-Autoimmune workup started however seems likely secondary to amyloid angiopathy. INDIO negative. Complements C3 elevated C4 normal. ANCA panel negative.
-CT angio 08/11 PM with large RP hematoma and active extravasation.
-Interventional radiology reevaluated and holding off on embolization the waiting tamponade of the hemorrhoid site, as he may lose renal function with more embolization
-Blood bank has placed incompatible blood because Darzalex makes compatibility testing difficult and patient has received least incompatible blood before.
-Vasculitis serology was negative
-Per cardiology Probably Watchman device as outpatient.
#OLIVIA on CKD 4/end-stage renal disease--HD started this admission 08/18/23--apprec renal
Remains oliguric
-some degree of creatinine to be elevated with contrast exposure, active arterial bleeding, hypertension, embolization
-Probnp elevated and was on high dose diuretics as OP.
-s/p IVF. Cr continue to uptrend with minimal urinary output.
-Status post HD catheter placement on 08/09 and now started on hemodialysis. Monitor hemodynamics closely as new to HD.
-Tunneled catheter placed on 08/16
-HD initiated on 08/17
#Decubitus sacral ulcer, unstageable--Wound care consulted yesterday and orders in place.
#Paroxysmal atrial fibrillation with bradycardia
-Continue antiarrhythmics, amiodarone
-Appreciated cardiology follow-up
-Holding Eliquis in the setting of active arterial bleed
-Plan to restart amiodarone at lower dose 100mg 3 times weekly per EP.
-Pt understands risk of restarting Eliquis in setting of amyloid angiopathy and hemorrhagic shock in future vs. benefit of prevention of CVA. Pt agreeable to continue to hold Eliquis
-Bradycardia noted-cardiology following and adjusting amiodarone
# Multiple myeloma with cardiac amyloidosis--Follows up at [facility] and also locally with Dr. Crocker
#Mild acute thrombocytopenia-resolved
# Hypokalemia Resolved
#CAD status post stents
-Hold aspirin
-Hold isosorbide mononitrate
#Normal ischemic myocardial injury in the setting of CKD/CAD
-Troponin level chronically elevated
#Chronic HFrEF
-Hold metolazone, Lasix--volume likely will bee managed by HD
-GDMT when and if tolerated
#Essential hypertension
-Hold hydralazine.
#Hyperlipidemia
-Continue statin and ezetimibe
#History of recurrent left pleural effusion
#Amyloidosis
#Multiple myeloma on immunotherapy-Patient on Venclexta
-Patient on Darzalex, Venclexta
-when on chemo takes dexamethasone
-Continue prophylactic acyclovir
#Amyloidosis
#Chemotherapy-induced neuropathy-Continue gabapentin
#Gout-Continue allopurinol
#Depression-Continue Lamictal, risperidone
# Cholelithiasis
# Cervical degenerative disc disease/arthritis
#Extensive diverticulosis.Extensive diverticulosis.
#Hypodense lesion in the left lobe of the thyroid for which ultrasound could be performed as OP
#Ex Smoker
#Full code
#DVT prophylaxis�SCDs in setting of recent hemorrhagic shock
transfer to tele
Anticipated Discharge: > 48 hours
Subjective/Interval History
-
Date of Service: August 19, 2023
pt without c/o
Objective Data
-
Labs:
Laboratory Results
08/19/23
03:24
WBC 5.9
Hgb 8.2 L
Hct 25.2 L
Plt Count 106 L
Sodium 136
Potassium 3.7
Chloride 102
Carbon Dioxide 28
BUN 29 H
Creatinine 2.3 H
Glucose 84
Calcium 8.1 L
Vital Signs:
max temp for 24 hours
08/18/23
23:08
Temp 98.7 F
Vital Signs
Temp Pulse Resp BP Pulse Ox
98.4 F 64 19 142/64 97
08/19/23 03:17 08/19/23 06:00 08/19/23 06:00 08/19/23 06:00 08/19/23 06:00
I&O
08/18/23 08/19/23 08/20/23
06:59 06:59 06:59
Intake Total 720 / 720 480 / 480
Output Total 200 / 200
Balance 520 / 520 480 / 480
Review of Systems
-
All other systems: Reviewed and negative
Physical Exam
-
General: Well Developed, Well Nourished and No Apparent Distress
HEENT: Normocephalic and Atraumatic
Respiratory: Crackles (at bases bilaterally)
Cardiac: Regular Rhythm and S1/S2; Negative Murmur
GI: Soft, Nontender, Nondistended and Normal Bowel Sounds
Musculoskeletal: No Clubbing and No Cyanosis; Negative No Edema (2+ LE edema bilaterally)
Skin: Warm
Neuro: Awake and Alert
Psych: Calm
[2023-08-19] MEDS: COLACE 100 MG PO ×2 (08:34→20:28)
[2023-08-19] MEDS: LAMICTAL 100 MG PO ×2 (08:35→20:29)
[2023-08-19] MEDS: MIRALAX PO (08:35)
[2023-08-19] MEDS: ZYLOPRIM 100 MG PO (08:35)
[2023-08-19] MEDS: DESENEX/MITRAZOL/ZEASORB 1 APPLIC TOPICAL ×2 (08:35→20:28)
[2023-08-19] MEDS: LOW STRENGTH ASPIRIN 81 MG PO (08:35)
[2023-08-19] MEDS: IMDUR (EXTENDED RELEASE) 30 MG PO (08:35)
[2023-08-19] MEDS: SENOKOT 17.1999999999999993 MG PO ×2 (08:35→20:29)
[2023-08-19] MEDS: CRESTOR 10 MG PO (08:35)
[2023-08-19] MEDS: ZOVIRAX 200 MG PO ×2 (08:35→20:30)
[2023-08-19] MEDS: NON-FORMULARY ITEM 200 MG PO (08:36)
[2023-08-19] MEDS: PACERONE 100 MG PO (08:40)
--- NOTE | 2023-08-19 11:13 | W.PN.NEPH.PH ---
Today's Communication / Plan
-
- next HD on Sunday
Assessment/Plan
-
IMP:
OLIVIA on CKD Stage 4 baseline cr 1.8-2.5
CAD with cardiac stents
Paroxysmal atrial fibrillation
Second-degree AV block Mobitz type 1
Heart failure with preserved ejection fraction
Hypotension
AL Amyloidosis
Multiple Myeloma
Left inferior renal artery bleed status postembolization 08/06/2023
Plan:
transfuse as needed
follow Hgb
HD next on Sunday, unfortunately, likely that he will be permanent ESRD
TDC in place
needs placement as patient likely needs SNF
-
-
Date of Service: August 19, 2023
CC / HPI / ROS
-
Chief Complaint:
OLIVIA on CKD
History of Present Illness:
LOIVIA/Cr on HD
tolerated HD yesterday
K stable
BP stable
Hgb stable 8.2
worse left flank pain; CT 08/11 showing active bleed
Review of Systems:
oliguric at this time
no CP/SOB
Labs
-
Labs:
WBC 5.9 10^3/uL (4.8-10.8) 08/19/23 03:24
RBC 2.81 10^6/uL (4.70-6.10) L 08/19/23 03:24
Hgb 8.2 g/dL (13.0-18.0) L 08/19/23 03:24
Hct 25.2 % (39.0-52.0) L 08/19/23 03:24
Plt Count 106 10^3/uL (130-400) L 08/19/23 03:24
Sodium 136 mmol/L (135-145) 08/19/23 03:24
Potassium 3.7 mmol/L (3.5-5.1) 08/19/23 03:24
Chloride 102 mmol/L (98-107) 08/19/23 03:24
Carbon Dioxide 28 mmol/L (22-30) 08/19/23 03:24
BUN 29 mg/dl (9-20) H 08/19/23 03:24
Creatinine 2.3 mg/dL (0.7-1.3) H 08/19/23 03:24
eGFR 29.25 08/19/23 03:24
Glucose 84 mg/dl (70-99) 08/19/23 03:24
Calcium 8.1 mg/dl (8.4-10.2) L 08/19/23 03:24
Phosphorus 3.3 mg/dl (2.5-4.5) 08/12/23 04:21
Pkh-J-Gbfpmfstjps Pept 93914 pg/ml 08/06/23 14:54
Albumin 2.7 g/dl (3.5-5.0) L 08/07/23 04:14
Physical Exam
-
Vital Signs:
Vital Signs
Temp Pulse Resp BP Pulse Ox
98.6 F 77 20 153/81 97
08/19/23 08:30 08/19/23 10:00 08/19/23 10:00 08/19/23 10:00 08/19/23 10:00
Cardiovascular:: Regular rate and rhythm
Respiratory:: Bilateral: Coarse
Lung Excursion:: Normal
Abdomen:: Nontender and Soft
Bowel Sounds:: Normal
Extremity Edema:: +1: Bilateral:
Viera Catheter: No
--- NOTE | 2023-08-19 12:07 | W.PN.URO.CBU ---
Today's Communication / Plan
-
HGB stable, no further intervention from urology standpoint
Nephrology recs for HD
Assessment / Plan
-
72M with afib, CAD on Eliquis with hemorrhagic shock, spontaneous left renal hemorrhage: clinical and radiographic evidence of ongoing retroperitoneal/renal hemorrhage
s/p selective embolization of L renal artery branch by IR 08/05
Recurrent bleeding episode 08/12 since stable after 1 unit transfused
- HGB stabilized without further evidence of recurrent bleeding
- Nephrology recs for renal failure requiring dialysis - per their note this is likely permanent
- Anticoagulation stopped indefinitely due to bleeding risk
- No further intervention needed from urology standpoint
Diagnosis
-
Date of Service: August 19, 2023
-
Patient Diagnosis:
Spontaneous retroperitoneal hemorrhage
s/p IR selective coil embolization of accessory renal artery 08/05 with radiographic evidence of recurrent/persistent bleed 08/13/23 with only minimal enlargement of left retroperitoneal hematoma
Renal failure
Subjective
-
No events overnight
Objective
-
Vital Signs
Temp Pulse Resp BP Pulse Ox
98.2 F 67 18 146/71 98
08/19/23 11:49 08/19/23 11:49 08/19/23 11:49 08/19/23 11:49 08/19/23 11:49
Intake and Output
08/18/23 08/19/23 08/20/23
06:59 06:59 06:59
Intake Total 720 / 720 480 / 480
Output Total 200 / 200
Balance 520 / 520 480 / 480
Intake:
Oral fluids 720 / 720 480 / 480
Output:
Urine, Voided 200 / 200
Other:
Number of approximated MODERATE 1
amounts of urine
Laboratory Results
08/19/23 03:24
08/19/23 03:24
Physical Exam
-
General - well developed, well nourished, no acute distress
Chest - clear bilaterally
Abdomen - soft, non-tender
Skin - warm & dry with no rash
Neuro - AOx3, no motor deficits
Extremities - no clubbing, no cyanosis, no edema
--- NOTE | 2023-08-19 15:45 | W.PN.CD ---
Today's Communication / Plan
-
Add hydralazine 10 mg 3 times daily.
Impression / Plan
-
72M with left renal artery hemorrhage and resultant RP hematoma. Developed hypovolemia, hypotension, and OLIVIA on CKD to HD.We are called with significant bradycardia while on amiodarone. PMH: Parkinson's disease, CAD with stenting, HFpEF, HTN,
multiple myeloma, and CKD3b. MRI was done in 2021 as we were concerned about amyloidosis. BM biopsy confirms the presence of amyloid protein. This is myeloma-related. Previously seen by Dr Kerr at [facility].
Abnormal renal angiogram: 'Multiple microaneurysms were seen within the peripheral left renal arteries, which may be seen in the setting of vasculitis. Vasculitis may predispose to spontaneous renal hemorrhage. Consider workup for vasculitis'
Bradycardia, asymptomatic
- Improved- continue current dose of amio
Bleeding
- s/p IR embolization and volume resuscitation, however today Hb is 6.0 consistent with rebleed
- CT scan08/12/2023 persistent area of active bleeding status post embolization.
- H/H 8.9 today after tx 2 u PRBC yesterday
- Agree that current bleeding event and risk for future events means we should stop OAT permanently
- he will live at higher risk for stroke and understands this tradeoff. We can discuss Watchman option in office
- MUST resume ASA 81 mg once bleeding has stopped and he remains with stable Hgb
HFmidrangeEF
- had HD today
- eventual GDMT as tolerated (limited in ESRD)
-added back IMDUR this am, but bp remaines markedly elevated, will add back some hydral. Start 10mg tid.
CAD
- continue ezetimibe and statin
- recent decline in LVEF
Multiple myeloma with cardiac amyloidosis
- Followed at [facility] and by Dr Crocker
- Has never had a full remission for the MM
HTN - stable, not on medications currrently. Resume medications when able.
Dyslipidemia - statin
MM with cardiac involvement
OLIVIA on top of CKD
-on HD
- Cr down to 3.0
- Lower half of kidney required embolization
Parkinson's
Subjective: Feels well, no complaints today.
Data:
����� ECHO in APR 2023 with EF 46%, global HK. No sig valve disease.
�������ECHO Dec 2022: EF 55%, MAC/mild MR, abnl strain c/w amyloid
�������Holter : DEC 2022: 48 hrs. Occ VPDs, no VT, rare supraventricular beats, no SVT. Mean HR 66 (35-96). Some Mobitz I AVB- SOB correlates with periods of Mobitz I AVB
�������Cardiac catheterization 08/26/2019: 30% mLAD, 20% in-stent stenosis OM 3, large OM 2 widely patent stent without restenosis, RCA with mild to moderate calcification 30% proximal stenosis, PDA focal 60% mid stenosis, with successful stenting of
80-90% OM 2 with FE
�������ECHO : EF 60-65%, mild to mod MR, PAs 35-40, aortic sclerosis
�������Lexiscan : perfusion normal . EF 45%.
Physical Exam
Vital Signs/Labs
Vital Signs
Temp Pulse Resp BP Pulse Ox
98.2 F 67 18 146/71 98
08/19/23 11:49 08/19/23 11:49 08/19/23 11:49 08/19/23 11:49 08/19/23 11:49
08/18/23 08/19/23 08/20/23
06:59 06:59 06:59
Actual Weight 89.6 kg 87.5 kg 87.543 kg
08/19/23 03:24
08/19/23 03:24
PT 18.8 Sec (11.4-14.6) H 08/08/23 03:07
INR 1.60 08/08/23 03:07
APTT 43.3 Sec (23.4-35.0) H 08/08/23 03:07
Magnesium 2.2 mg/dl (1.6-2.3) 08/12/23 04:21
08/06/23
14:54
Ytc-A-Zzlsorvwask Pept [id number]
Physical Exam
Constitutional: No acute distress
EENT: Anicteric
Cardiovascular: Rhythm & rate is regular, JVD pressure is normal, Systolic murmur absent and Pedal edema present (Trace bilaterally)
GI: Soft
Neuro/Psych: AO x 3
Data Reviewed
-
Date of Service: August 19, 2023
EKG: Other (Telemetry, sinus rhythm)
[2023-08-19] MEDS: RISPERDAL 0.25 MG PO (21:57)
[2023-08-19] MEDS: ZETIA 10 MG PO (21:57)
[2023-08-19] MEDS: APRESOLINE 10 MG PO (22:03)
[2023-08-20 03:03] VITALS: BP 140/67
[2023-08-20 05:00] LABS: Hematocrit 25.2 % (39.0-52.0); Hemoglobin 8.2 g/dL (13.0-18.0); Mean Corp Hgb Conc. 32.5 g/dL (33.0-37.0); Mean Corpuscular Hgb 29.1 pg (27.0-31.0); Mean Corpuscular Volume 89.4 fL (80.0-94.0); Mean Platelet Volume 10.4 fL (7.4-10.4); Platelet Count 132 10^3/uL (130-400); Red Blood Cell Count 2.82 10^6/uL (4.70-6.10); Red Cell Dist. Width 18.7 % (11.5-14.5); White Blood Cell Count 6.4 10^3/uL (4.8-10.8)
[2023-08-20 05:36] LABS: ALT (SGPT) 12 U/L (0-50); AST (SGOT) 27 U/L (17-59); Albumin 2.5 g/dl (3.5-5.0); Alkaline Phosphatase 138 U/L (38-126); Blood Urea Nitrogen 39 mg/dl (9-20); Calcium 7.8 mg/dl (8.4-10.2); Carbon Dioxide 29 mmol/L (22-30); Chloride 101 mmol/L (98-107); Estimated Creatinine Clearance 25 ml/min; Glucose 97 mg/dl (70-99); Potassium 3.8 mmol/L (3.5-5.1); Sodium 135 mmol/L (135-145); Total Bilirubin 1.5 mg/dl (0.2-1.3); Total Protein 4.5 g/dl (6.3-8.2); eGFR 24.13
[2023-08-20 06:00] VITALS: BMI 27.7
[2023-08-20 08:47] VITALS: BP 165/70
[2023-08-20] MEDS: APRESOLINE 10 MG PO ×3 (08:58→22:22)
[2023-08-20] MEDS: MIRALAX PO ×2 (08:58→09:04)
[2023-08-20] MEDS: LOW STRENGTH ASPIRIN 81 MG PO (08:59)
[2023-08-20] MEDS: ROXICODONE 2.5 MG PO (08:59)
[2023-08-20] MEDS: COLACE 100 MG PO ×2 (08:59→20:32)
[2023-08-20] MEDS: IMDUR (EXTENDED RELEASE) 30 MG PO (09:00)
[2023-08-20] MEDS: SENOKOT PO ×3 (09:01→20:40)
[2023-08-20] MEDS: LAMICTAL 100 MG PO ×2 (09:01→20:32)
[2023-08-20] MEDS: ZYLOPRIM 100 MG PO (09:01)
[2023-08-20] MEDS: CRESTOR 10 MG PO (09:01)
[2023-08-20] MEDS: ZOVIRAX 200 MG PO ×2 (09:01→20:32)
[2023-08-20] MEDS: DESENEX/MITRAZOL/ZEASORB 1 APPLIC TOPICAL ×2 (09:06→20:32)
[2023-08-20] MEDS: NON-FORMULARY ITEM 200 MG PO (09:08)
--- NOTE | 2023-08-20 09:50 | W.PN.CD ---
Today's Communication / Plan
-
continue current medications
ok to d/c tele
await another episode of HD
f/u in office to be arranged.
I will sign off
Impression / Plan
-
72M with left renal artery hemorrhage and resultant RP hematoma. Developed hypovolemia, hypotension, and OLIVIA on CKD to HD.We are called with significant bradycardia while on amiodarone. PMH: Parkinson's disease, CAD with stenting, HFpEF, HTN,
multiple myeloma, and CKD3b. MRI was done in 2021 as we were concerned about amyloidosis. BM biopsy confirms the presence of amyloid protein. This is myeloma-related. Previously seen by Dr Kerr at [facility].
Abnormal renal angiogram: 'Multiple microaneurysms were seen within the peripheral left renal arteries, which may be seen in the setting of vasculitis. Vasculitis may predispose to spontaneous renal hemorrhage. Consider workup for vasculitis'
Bradycardia, asymptomatic
- Improved- continue current dose of amio
-Stable no issues on tele
Bleeding
- s/p IR embolization and volume resuscitation, however today Hb is 6.0 consistent with rebleed
- CT scan08/12/2023 persistent area of active bleeding status post embolization.
- H/H 8.9 today after tx 2 u PRBC yesterday
- Agree that current bleeding event and risk for future events means we should stop OAT permanently
- he will live at higher risk for stroke and understands this tradeoff. We can discuss Watchman option in office
- MUST resume ASA 81 mg once bleeding has stopped and he remains with stable Hgb
HFmidrangeEF
- had HD today
- eventual GDMT as tolerated (limited in ESRD)
-added back IMDUR and hydralazine with improvement, will not increase further today can titrate as an outpatient
CAD
- continue ezetimibe and statin
- recent decline in LVEF
Multiple myeloma with cardiac amyloidosis
- Followed at [facility] and by Dr Crocker
- Has never had a full remission for the MM
HTN - stable, not on medications currrently. Resume medications when able.
Dyslipidemia - statin
MM with cardiac involvement
OLIVIA on top of CKD
-on HD
- Cr down to 3.0
- Lower half of kidney required embolization
Parkinson's
Subjective: Feels well, no complaints today.
Data:
����� ECHO in APR 2023 with EF 46%, global HK. No sig valve disease.
�������ECHO Dec 2022: EF 55%, MAC/mild MR, abnl strain c/w amyloid
�������Holter : DEC 2022: 48 hrs. Occ VPDs, no VT, rare supraventricular beats, no SVT. Mean HR 66 (35-96). Some Mobitz I AVB- SOB correlates with periods of Mobitz I AVB
�������Cardiac catheterization 08/26/2019: 30% mLAD, 20% in-stent stenosis OM 3, large OM 2 widely patent stent without restenosis, RCA with mild to moderate calcification 30% proximal stenosis, PDA focal 60% mid stenosis, with successful stenting of
80-90% OM 2 with FE
�������ECHO : EF 60-65%, mild to mod MR, PAs 35-40, aortic sclerosis
�������Lexiscan : perfusion normal . EF 45%.
Physical Exam
Vital Signs/Labs
Vital Signs
Temp Pulse Resp BP Pulse Ox
98.3 F 65 16 165/70 97
08/20/23 08:47 08/20/23 08:58 08/20/23 08:47 08/20/23 08:58 08/20/23 08:47
08/19/23 08/20/23 08/21/23
06:59 06:59 06:59
Actual Weight 87.5 kg 87.453 kg
08/20/23 04:31
08/20/23 04:31
PT 18.8 Sec (11.4-14.6) H 08/08/23 03:07
INR 1.60 08/08/23 03:07
APTT 43.3 Sec (23.4-35.0) H 08/08/23 03:07
Magnesium 2.2 mg/dl (1.6-2.3) 08/12/23 04:21
08/06/23
14:54
Oue-D-Degbgmwznqe Pept [id number]
Physical Exam
Constitutional: No acute distress
Cardiovascular: Rhythm & rate is regular, JVD pressure is normal and Pedal edema present (1+ pitting)
Respiratory: Respiratory effort normal, Lungs clear to auscul., Wheeze Absent, Crackles Absent and Rhonchi Absent
Neuro/Psych: AO x 3
Data Reviewed
-
Date of Service: August 20, 2023
Medical Decision Making: Review of Case with other Provider (d/w Dr Connors, d/c tele will sign of )
[2023-08-20 11:41] VITALS: BP 119/49
--- NOTE | 2023-08-20 14:10 | W.PN.NEPH.PH ---
Today's Communication / Plan
-
HD tomorrow
Assessment/Plan
-
IMP:
OLIVIA on CKD Stage 4 baseline cr 1.8-2.5
CAD with cardiac stents
Paroxysmal atrial fibrillation
Second-degree AV block Mobitz type 1
Heart failure with preserved ejection fraction
Hypotension
AL Amyloidosis
Multiple Myeloma
Left inferior renal artery bleed status postembolization 08/06/2023
Plan:
A/w spontaneous left Renal art bleed, s/p embolization
concern of vasculitis however serologies were negative
OLIVIA HD dependant , cr increasing between HD, oliguric
plan HD TTS and need out pt HD unit placement
hb stable
-
-
Date of Service: August 20, 2023
CC / HPI / ROS
-
Chief Complaint:
OLIVIA on CKD
History of Present Illness:
OLIVIA/Cr on HD
tolerated HD 08/17
K stable
BP stable
Hgb stable 8.2
CT 08/11 showing active bleed
Review of Systems:
oliguric at this time
no CP/SOB
Labs
-
Labs:
WBC 6.4 10^3/uL (4.8-10.8) 08/20/23 04:31
RBC 2.82 10^6/uL (4.70-6.10) L 08/20/23 04:31
Hgb 8.2 g/dL (13.0-18.0) L 08/20/23 04:31
Hct 25.2 % (39.0-52.0) L 08/20/23 04:31
Plt Count 132 10^3/uL (130-400) D 08/20/23 04:31
Sodium 135 mmol/L (135-145) 08/20/23 04:31
Potassium 3.8 mmol/L (3.5-5.1) 08/20/23 04:31
Chloride 101 mmol/L (98-107) 08/20/23 04:31
Carbon Dioxide 29 mmol/L (22-30) 08/20/23 04:31
BUN 39 mg/dl (9-20) H 08/20/23 04:31
Creatinine 2.7 mg/dL (0.7-1.3) H 08/20/23 04:31
eGFR 24.13 08/20/23 04:31
Glucose 97 mg/dl (70-99) 08/20/23 04:31
Calcium 7.8 mg/dl (8.4-10.2) L 08/20/23 04:31
Phosphorus 3.3 mg/dl (2.5-4.5) 08/12/23 04:21
Nzs-O-Apqkvrnbjbj Pept [id number] pg/ml 08/06/23 14:54
Albumin 2.5 g/dl (3.5-5.0) L 08/20/23 04:31
Physical Exam
-
Vital Signs:
Vital Signs
Temp Pulse Resp BP Pulse Ox
97.9 F 64 17 119/49 98
08/20/23 11:41 08/20/23 11:41 08/20/23 11:41 08/20/23 11:41 08/20/23 11:41
Cardiovascular:: Regular rate and rhythm
Respiratory:: Bilateral: CTA
Lung Excursion:: Normal
Abdomen:: Nontender and Soft
Extremity Edema:: +1: Bilateral:
Viera Catheter: No
--- NOTE | 2023-08-20 15:15 | CM ---
CM reviewed chart and ADC >48 hours
[facility] ([phone] ext. [phone])
Outpatient HD is still pending, [facility] has been assigned but also looking potentially at [place] location
He has outreached for escalation of processing to uppper management
Serology faxed per his request to [phone]
Therapy following with recommendations for outpatient therapy on dc
CM will continue to follow for dc planning
Discharge Disposition- home with new HD at [facility] and outpatient therapy
[2023-08-20 15:57] VITALS: BP 158/76
--- NOTE | 2023-08-20 17:50 | W.PN.HOSP.TC ---
Today's Communication/Plan
-
Monitor blood pressure on Imdur and hydralazine
Hemoglobin has been stable
HD in a.m.
Case management consultation for discharge planning and outpatient HD schedule.
Assessment / Plan
Assessment / Plan
A/P:
#Hypovolemic/Hemorrhagic shock
Acute blood loss anemia secondary to retroperitoneal hemorrhage --from spontaneous left renal artery hemorrhage--Left renal artery extravasation status post embolization
-Per hematology might be an element of amyloid deposition on vasculature which makes him prone to bleeding and aneurysmal defect and that seems to make sense.
-Continue to hold anticoagulation indefinitely in light of life-threatening bleed.
-Hemoglobin 8.3 today.
-asa restarted
-Status post 6 units of PRBC
-Kcentra was given to reverse Eliquis
-Holding Lasix, metolazone
-Holding antihypertensives
-Off Levophed now. Goal MAP >65 and if needed restart Levophed.
-Status post arteriogram with finding of large arterial active bleeding in the multiple left kidney status post embolization using coil and Gelfoam. Arteriogram showed many microaneurysm of the left kidney raising concern for vasculitis. ? Risk
factor due to multiple myeloma
-Per oncology patient with amyloid angiopathy most likely etiology of active arterial bleeding
-Autoimmune workup started however seems likely secondary to amyloid angiopathy. INDIO negative. Complements C3 elevated C4 normal. ANCA panel negative.
-CT angio 08/11 PM with large RP hematoma and active extravasation.
-Interventional radiology reevaluated and holding off on embolization the waiting tamponade of the hemorrhoid site, as he may lose renal function with more embolization
-Blood bank has placed incompatible blood because Darzalex makes compatibility testing difficult and patient has received least incompatible blood before.
-Vasculitis serology was negative
-Per cardiology Probably Watchman device as outpatient.
#OLIVIA on CKD 4/end-stage renal disease--HD started this admission 08/18/23--apprec renal
Remains oliguric
-some degree of creatinine to be elevated with contrast exposure, active arterial bleeding, hypertension, embolization
-Probnp elevated and was on high dose diuretics as OP.
-s/p IVF. Cr continue to uptrend with minimal urinary output.
-Status post HD catheter placement on 08/09 and now started on hemodialysis. Monitor hemodynamics closely as new to HD.
-Tunneled catheter placed on 08/16
-HD initiated on 08/17
#Decubitus sacral ulcer, unstageable--Wound care consulted yesterday and orders in place.
#Paroxysmal atrial fibrillation with bradycardia
-Continue antiarrhythmics, amiodarone
-Appreciated cardiology follow-up
-Anticoagulation had been discontinued due to massive hemorrhage
-Pt understands risk of restarting Eliquis in setting of amyloid angiopathy and hemorrhagic shock in future vs. benefit of prevention of CVA. Pt agreeable to continue to hold Eliquis
-Bradycardia noted-cardiology following and adjusting amiodarone
# Multiple myeloma with cardiac amyloidosis--Follows up at [facility] and also locally with Dr. Crocker
#Mild acute thrombocytopenia-resolved
# Hypokalemia Resolved
#CAD status post stents
-Hold aspirin
-Hold isosorbide mononitrate
#Normal ischemic myocardial injury in the setting of CKD/CAD
-Troponin level chronically elevated
#Chronic HFrEF
-Hold metolazone, Lasix-
-volume managed with HD
-GDMT when and if tolerated
#Essential hypertension
-Reinstated on hydralazine and Imdur
#Hyperlipidemia
-Continue statin and ezetimibe
#History of recurrent left pleural effusion
#Amyloidosis
#Multiple myeloma on immunotherapy-Patient on Venclexta
-Patient on Darzalex, Venclexta
-when on chemo takes dexamethasone
-Continue prophylactic acyclovir
#Amyloidosis
#Chemotherapy-induced neuropathy-Continue gabapentin
#Gout-Continue allopurinol
#Depression-Continue Lamictal, risperidone
# Cholelithiasis
# Cervical degenerative disc disease/arthritis
#Extensive diverticulosis.Extensive diverticulosis.
#Hypodense lesion in the left lobe of the thyroid for which ultrasound could be performed as OP
#Ex Smoker
#Full code
#DVT prophylaxis�SCDs in setting of recent hemorrhagic shock
Anticipated Discharge: 24 - 48 hours
Subjective/Interval History
-
Date of Service: August 20, 2023
Objective Data
-
Vital Signs:
Vital Signs
Temp Pulse Resp BP Pulse Ox
97.8 F 65 16 158/76 97
08/20/23 15:57 08/20/23 15:57 08/20/23 15:57 08/20/23 15:57 08/20/23 15:57
I&O
08/19/23 08/20/23 08/21/23
06:59 06:59 06:59
Intake Total 480 / 480 540 / 540 480 / 480
Output Total 200 / 200 400 / 400
Balance 480 / 480 340 / 340 80 / 80
Physical Exam
-
General: Well Developed and No Apparent Distress
HEENT: Normocephalic, Atraumatic and Moist Mucous Membranes
Respiratory: Clear to Auscultation
Cardiac: Regular Rhythm and S1/S2; Negative Murmur, Rub or Gallop
GI: Soft, Nontender, Nondistended and Normal Bowel Sounds; Negative Organomegaly
Rectal: Deferred by Provider
Musculoskeletal: No Clubbing, No Cyanosis and No Edema
Skin: Negative Rash
Neuro: Nonfocal/Grossly Intact
[2023-08-20] MEDS: RISPERDAL 0.25 MG PO (22:22)
[2023-08-20] MEDS: ZETIA 10 MG PO (22:22)
[2023-08-20 22:57] VITALS: BP 160/72
[2023-08-21] MEDS: ROXICODONE 5 MG PO ×2 (01:15→08:49)
[2023-08-21 03:23] VITALS: BP 153/74
[2023-08-21 04:57] LABS: % Basophils 0.4 % (0-2); % Immature Granulocytes 0.6 % (0-0.5); % Lymphocytes 6.6 % (20.5-51.1); % Monocytes 9.9 % (1.7-9.3); % Neutrophils 82.5 % (42.2-75.2); Absolute Lymphocytes 0.3 10^3/uL (1.2-3.4); Absolute Monocytes 0.5 10^3/uL (0.1-0.6); Hematocrit 26.3 % (39.0-52.0); Hemoglobin 8.4 g/dL (13.0-18.0); Mean Corp Hgb Conc. 31.9 g/dL (33.0-37.0); Mean Corpuscular Volume 90.7 fL (80.0-94.0); Mean Platelet Volume 10.2 fL (7.4-10.4); Nucleated Red Blood Cells % 0 % (-); Platelet Count 146 10^3/uL (130-400); Red Cell Dist. Width 19.1 % (11.5-14.5); White Blood Cell Count 4.9 10^3/uL (4.8-10.8)
[2023-08-21 05:40] LABS: Blood Urea Nitrogen 43 mg/dl (9-20); Calcium 7.9 mg/dl (8.4-10.2); Carbon Dioxide 27 mmol/L (22-30); Chloride 103 mmol/L (98-107); Estimated Creatinine Clearance 25 ml/min; Glucose 93 mg/dl (70-99); Sodium 137 mmol/L (135-145); eGFR 24.13
[2023-08-21 06:00] VITALS: BMI 27.4
[2023-08-21 07:05] VITALS: BP 153/70
[2023-08-21] MEDS: ZYLOPRIM 100 MG PO (08:26)
[2023-08-21] MEDS: APRESOLINE 10 MG PO ×2 (08:26→16:00)
[2023-08-21] MEDS: IMDUR (EXTENDED RELEASE) 30 MG PO (08:26)
[2023-08-21] MEDS: CRESTOR 10 MG PO (08:27)
[2023-08-21] MEDS: ZOVIRAX 200 MG PO (08:27)
[2023-08-21] MEDS: COLACE 100 MG PO (08:27)
[2023-08-21] MEDS: LAMICTAL 100 MG PO (08:28)
[2023-08-21] MEDS: LOW STRENGTH ASPIRIN 81 MG PO (08:28)
[2023-08-21] MEDS: SENOKOT PO (08:31)
[2023-08-21] MEDS: MIRALAX PO (08:31)
[2023-08-21] MEDS: NON-FORMULARY ITEM 200 MG PO (08:32)
[2023-08-21] MEDS: PACERONE 100 MG PO (08:34)
[2023-08-21] MEDS: DESENEX/MITRAZOL/ZEASORB 1 APPLIC TOPICAL (08:48)
[2023-08-21] MEDS: RETACRIT 10000 UNITS IV (13:25)
--- NOTE | 2023-08-21 14:07 | CM ---
CM obtained confirmation for SOC for outpatient HD at [facility]
Pt has been scheduled at [facility] MWF 1115 chair time start Wednesday 08/23
Schedule letter received and on chart
Copy in dc folder as well
[facility] unable to accept pt sooner at [place]
Bedside update to pt
Schedule letter provided
Outpatient therapy recommended and pt declined script
He will arrange for transport home
No other dc needs noted
IMM verbally reviewed- copy provided
Update to Dr. Armando and Dr Reyes
Nephro notes to pt be dialyzed today and then will plan for next HD at outpt clinic on Sunday
Call to [facility] clinic- requested serology and today's flow sheet be faxed directly to them [phone] (f)
CM to follow up
Discharge Disposition- home with new HD at [facility], declined outpt therapy- family transport
Flowsheet and serology to be faxed to [facility] once available
--- NOTE | 2023-08-21 14:17 | W.PN.NEPH.HD ---
Assessment
-
pt seen during HD
vitals stable
BP high, attempting UF as tolerates
cr no change today, non oliguric
need f/u labs at HD unit
ok for d/c per renal
To start HD on Sunday at [facility]
cont home BP meds
Progress Note - Hemodialysis
-
Date of Service: August 21, 2023
Duration: 30 minutes and 3 hours
Potassium Bath: 3
Calcium Bath: 2.5
Opti-Dialyzer: 160
Ultrafiltration: Other (1.5-2kg)
Blood Flow: 400
Dialysate Flow: 600
Heparin: no
EPO: [id number]
[2023-08-21 15:10] VITALS: BP 169/88
[2023-08-21] MEDS: HEPARIN 2000 UNITS INTRACATH (15:32)
--- NOTE | 2023-08-21 15:45 | W.DS.TRANS ---
DC Summary - [employer]
-
Discharge Instructions:
Discharge Diagnosis/Procedures Acute blood loss anemia secondary to
retroperitoneal hemorrhage
Diet Regular
Instructions:
Stand-Alone Forms:
Changes to Home Medications: Yes
Discharge Medications:
DC Medications w/original date entered in [employer]
lamotrigine 100 mg tablet 100 mg PO BID Neurological Condition 07/24/19
ezetimibe 10 mg tablet 10 mg PO HS High cholesterol 08/26/19
rosuvastatin 10 mg tablet 10 mg PO DAILY High cholesterol 08/26/19
aspirin 81 mg tablet,delayed release 81 mg PO DAILY Blood clot prevention/tx 08/27/19
allopurinol 100 mg tablet 100 mg PO DAILY Gout 06/15/20
gabapentin 100 mg capsule (Neurontin) 100 mg PO TID Pain 09/26/21
montelukast 10 mg tablet (Singulair) 10 mg PO UD bone pain prevention 09/26/21
acyclovir 400 mg tablet 400 mg PO BID Infection 01/03/23
dexamethasone 4 mg tablet 4 mg PO UD Anti-Inflammatory 01/03/23
daratumumab 20 mg/mL intravenous solution (Darzalex) 1,800 mg IV QMONTH Cancer 04/20/23
venetoclax 100 mg tablet (Venclexta) 200 mg PO DAILY Cancer 04/20/23
risperidone 0.25 mg tablet 0.25 mg PO HS Mental Health/Anxiety 08/06/23
amiodarone 100 mg tablet (Pacerone) 100 mg PO SuTuThSa@0800 #30 tabs 08/21/23
hydralazine 10 mg tablet 10 mg PO TID #90 tabs 08/21/23
isosorbide mononitrate 30 mg tablet,extended release 24 hr 30 mg PO DAILY HEART CONDITION #0 tabs 08/21/23
Home Medication Changes
Amiodarone dose reduced
Diuretic stopped with HD initiation
Imdur dose reduced
Eliquis stopped
Pending Results: No
--- NOTE | 2023-08-21 17:59 | PTCARENOTE ---
Patient discharged home after HD session. Subq port de-accessed earlier in shift by IV nurse. Discharge instructions and medications reviewed with patient by this RN, patient verbalized understanding. Home medication provided back to patient along
with air chair cushion and border foams for sacral wound. Patient transported by family member, taken down to car at main lobby via staff escort and wheelchair.
== END 2023-08-21 18:45 | disposition home or self-care (01) | DRG 673 ==
LOC: 2 NORTH 17:01
PROVIDERS: Hospitalist; Internal Medicine; Nurse Practitioner Gerontology; Nurse Practitioner Primary Care; Radiology Diagnostic Radiology; Radiology Vascular & Interventional Radiology; Registered Nurse; Student in an Organized Health Care Education/Training Program; ADMITTING PHYSICIAN Hospitalist; ATTENDING PHYSICIAN Internal Medicine; CONSULT PHYSICIAN Internal Medicine; CONSULT PHYSICIAN Internal Medicine Cardiovascular Disease; CONSULT PHYSICIAN Internal Medicine Hematology & Oncology; CONSULT PHYSICIAN Specialist; CONSULT PHYSICIAN Urology; EMERGENCY PHYSICIAN Emergency Medicine
PROC: 04LA3DZ Occlusion of Left Renal Artery with Intraluminal Device, Percutaneous Approach (ICD-10-PCS; 2023-08-06)
PROC: B4171ZZ Fluoroscopy of Left Renal Artery using Low Osmolar Contrast (ICD-10-PCS; 2023-08-06)
PROC: 30233N1 Transfusion of Nonautologous Red Blood Cells into Peripheral Vein, Percutaneous Approach (ICD-10-PCS; 2023-08-06)
PROC: 30283B1 Transfusion of Nonautologous 4-Factor Prothrombin Complex Concentrate into Vein, Percutaneous Approach (ICD-10-PCS; 2023-08-06)
PROC: 5A1D70Z Performance of Urinary Filtration, Intermittent, Less than 6 Hours Per Day (ICD-10-PCS; 2023-08-10)
PROC: 02HV33Z Insertion of Infusion Device into Superior Vena Cava, Percutaneous Approach (ICD-10-PCS; 2023-08-10)
PROC: 02H633Z Insertion of Infusion Device into Right Atrium, Percutaneous Approach (ICD-10-PCS; 2023-08-17)
PROC: 0JH63XZ Insertion of Tunneled Vascular Access Device into Chest Subcutaneous Tissue and Fascia, Percutaneous Approach (ICD-10-PCS; 2023-08-17)
DX: N28.0 Ischemia and infarction of kidney (principal); I50.43 Acute on chronic combined systolic (congestive) and diastolic (congestive) heart failure; K68.3 Retroperitoneal hematoma; R57.1 Hypovolemic shock; R57.8 Other shock; N18.4 Chronic kidney disease, stage 4 (severe); N17.9 Acute kidney failure, unspecified; C90.00 Multiple myeloma not having achieved remission; I13.0 Hypertensive heart and chronic kidney disease with heart failure and stage 1 through stage 4 chronic kidney disease, or unspecified chronic kidney disease; D62 Acute posthemorrhagic anemia; I5A Non-ischemic myocardial injury (non-traumatic); D68.32 Hemorrhagic disorder due to extrinsic circulating anticoagulants; E85.81 Light chain (AL) amyloidosis; E85.4 Organ-limited amyloidosis; I43 Cardiomyopathy in diseases classified elsewhere; I48.20 Chronic atrial fibrillation, unspecified; I25.10 Atherosclerotic heart disease of native coronary artery without angina pectoris; I48.0 Paroxysmal atrial fibrillation; M10.9 Gout, unspecified; E87.6 Hypokalemia; E78.00 Pure hypercholesterolemia, unspecified; T45.515A Adverse effect of anticoagulants, initial encounter; T45.1X5A Adverse effect of antineoplastic and immunosuppressive drugs, initial encounter; I70.1 Atherosclerosis of renal artery; G62.0 Drug-induced polyneuropathy; F32.A Depression, unspecified; D63.1 Anemia in chronic kidney disease; L89.150 Pressure ulcer of sacral region, unstageable; J44.9 Chronic obstructive pulmonary disease, unspecified; I44.1 Atrioventricular block, second degree; G20.A1 Parkinson's disease without dyskinesia, without mention of fluctuations; R00.1 Bradycardia, unspecified; D69.6 Thrombocytopenia, unspecified; Z79.01 Long term (current) use of anticoagulants; Z79.82 Long term (current) use of aspirin; Z79.899 Other long term (current) drug therapy; Z95.5 Presence of coronary angioplasty implant and graft; Z87.891 Personal history of nicotine dependence; Z79.52 Long term (current) use of systemic steroids
CPT/HCPCS: 36253; 36556; 36558; 37244; 70450; 71045; 71275; 74174; 75726; 76937; 77001; 80048; 80053; 81003; 81015; 82570; 82805; 83516; 83605; 83735; 83880; 84100; 84300; 84484; 85014; 85018; 85025; 85027; 85384; 85610; 85730; 86038; 86160; 86225; 86704; 86706; 86803; 86850; 86870; 86900; 86901; 86902; 86920; 86922; 87340; 93005; 96374; 96375; 97116; 97163; 97166; 97535; 99152; 99153; 99291; 99292; C1769; C1887; G0257; J7168; P9016; P9047; Q5106; Q9967

== ENCOUNTER 2023-10-17 04:02 | Observation (INO) | payer MEDICARE, SELFPAY ==
[2023-10-16 23:38] VITALS: BP 155/79
[2023-10-17] VITALS (12 sets, daily range): BP systolic 124–164; BP diastolic 66–88; PULSE 77–90
--- NOTE | 2023-10-17 00:15 | ED.GENMED ---
History of Present Illness
General
Chief Complaint: Fall
Source: patient
Exam Limitations: none
Time Seen by Provider: 10/16/23 23:58
History of Present Illness
History of Present Illness:
This is a 72 year old male that comes in with c/o fall. States that he got up to go to the BR and he lost his balance. States that he fell a couple of weeks ago and the didn't want to do his dialysis since he didn't get checked. States that he has
dialysis Sunday-Sunday and Sunday. States that tonight he hit his head on the dresser and he has skin tears on his arms and he cut his head. States that he is occasionally SOB, and that he does urinates 3 times daily. Denies any fever, chills,
chest pain, abd pain, nausea, vomiting, diarrhea, headache, dizziness, urinary burning.
Past History
Past History
ED Past Medical History: Arrthythmia (Atrial fib), CAD, Cancer (multiple myeloma, Skin CA), CHF, HTN, Hypercholesterolemia, RI, Renal failure (Dialysis M-W-), Psychiatric (Depression) and Other (chronic renal disease, amyloidosis, Syncope, Renal
calculus, Lymes, )
ED Past Surgical History: Cardiac (Stents X 4), Orthopedic (Cancer removed from left shoulder, Left knee meniscus, Right rotator cuff, , Bilateral knee replacement) and Other (Hernia repair, )
Social History
Tobacco: Former smoker
Alcohol: Occasional
Personal:
Living: alone
Employment: Not employed
Review of Systems
Review of Systems
All Other Systems: ROS reviewed and negative except as documented in HPI and ROS
Constitutional: Reports no symptoms; Denies fever or chills
EENT: Reports no symptoms
Respiratory: Reports trouble breathing; Denies cough
Cardiac: Reports no symptoms; Denies chest pain
ABD/GI: Reports no symptoms; Denies abdominal pain, nausea, vomiting or diarrhea
: Reports no symptoms; Denies dysuria, frequency or urgency
Musculoskeletal: Reports no symptoms
Skin: Reports other (Skin tears to right forearm, Left hand and left elbow and forearm)
Neurological: Denies dizzy or headache
Psychiatric: Reports no symptoms
Phy Exam
General Physical Exam
General Presentation: no apparent distress
General age: appears stated age
General Skin: warm and dry
General Habitus: elderly
General Mental: alert
General Hydration: appears well hydrated
ENT Exam
ENT Exam: TM's normal, pharynx normal and neck supple
Eye Exam
Eye Exam: EOMI
Cardiovascular Exam
Cardiovascular Exam: regular rate/rhythm, normal peripheral pulses and other (Murmur)
Pulmonary Exam
Pulmonary Exam: no respiratory distress, chest non tender, no rhonchi, no wheezing, no cough and other (rales at bases)
Gastrointestinal Exam
Gastrointestinal Exam: normal bowel sounds, non tender, soft, no organomegaly, no pulsatile mass and non distended
Musculoskeletal Exam
Musculoskeletal Exam: full ROM, edema (+2 pitting edema of the ankles and lower legs) and other (Negative for cervical neck tenderness or spinal tenderness. Patient moving all extremties. )
Skin Exam
Skin Exam: normal color, warm/dry, no rash, no petechia, laceration (To the left scalp area. ) and other (Skin abrasion to the right forearm, Left hand and left elbow and proximal forearm. )
Psychiatric Exam
Psychiatric Exam: normal mood/affect
Course
Orders/Labs/Results
Orders:
Orders
10/17/23 00:14
CT Head W/o Iv Contrast Urgent
Comment:
Reason For Exam: Fall hitting head.
CR Chest - 2 Views Urgent
Comment:
Reason For Exam: SOB
10/17/23 00:31
Complete Blood Count/With Diff Urgent
Comprehensive Metabolic Panel Urgent
NT-proBNP Urgent
Troponin I Urgent
Abnormal Lab Results
10/17/23
00:31
RBC 3.42 L 10^6/uL
(4.70-6.10)
Hgb 9.9 L g/dL
(13.0-18.0)
Hct 30.5 L %
(39.0-52.0)
MCHC 32.5 L g/dL
(33.0-37.0)
RDW 16.0 H %
(11.5-14.5)
Abs Immat Gran (auto) 0.1 H 10^3/uL
(0-0.05)
Absolute Lymphs (auto) 0.5 L 10^3/uL
(1.2-3.4)
Immature Gran % 2.2 H %
(0-0.5)
Neutrophils % 80.1 H %
(42.2-75.2)
Lymphocytes % 8.2 L %
(20.5-51.1)
Sodium 134 L mmol/L
(135-145)
BUN 21 H mg/dl
(9-20)
Creatinine 2.1 H mg/dL
(0.7-1.3)
Glucose 115 H mg/dl
(70-99)
Calcium 8.0 L mg/dl
(8.4-10.2)
Alkaline Phosphatase 173 H U/L
(38-126)
Troponin I 0.183 H* ng/ml
Total Protein 4.9 L g/dl
(6.3-8.2)
Albumin 2.8 L g/dl
(3.5-5.0)
10/17/23 00:31
10/17/23 00:31
H/H low, Anemia, Chronic renal failure, Glucose nonfasting. Calcium slightly low. Alk phos elevation. Troponin elevation. Pro-BNP >54755, Total protein low. Albumin low.
Vital Signs
Initial and Last Documented VS:
Initial Vital Signs
Temp Pulse Resp BP Pulse Ox
98.2 F 85 18 155/79 99
10/16/23 23:38 10/16/23 23:38 10/16/23 23:38 10/16/23 23:38 10/16/23 23:38
Last Documented Vital Signs
Temp Pulse Resp BP Pulse Ox
98.2 F 70 20 142/82 100
10/16/23 23:38 10/17/23 01:15 10/17/23 01:15 10/17/23 01:15 10/17/23 01:15
MDM/Problems Addressed
Differential Diagnosis Includes:
Laceration, Skin tears, Accidental fall
MDM/Problems Addressed:
This is a 72 year old male that got up to the BR and lost his balance. States that he hit his head on the dresser. Denies any LOC. States that he fell a couple of months ago and they didn't want to do his dialysis as he had not gotten checked.
Will get CT head and check labs. Chest x-ray.
Back into see patent. Explained that his blood work shows that his Troponin is elevated and that his Pro-BNP is elevated. Patient also has increased on the left pleural effusion. Patient was very SOB when laying back for assessment. Rales noted at
bases. Will admit patient. Hospitalist notified.
Chronic conditions affecting care:
NA
Acute Exacerbation and/or Progression of Chronic Illness:
NA
*Radiology
Radiology exam reviewed: preliminary read by ED provider (Chest- Increased left pleural effusion. ) and radiology read reviewed (CT head- night hawk-No acute hemorrhage, herniation, or hydrocephalus. No calvarial fracture. Left frontal scalp soft
tissue swelling. The visualized paranasal sinuses and mastoid air cells are clear. )
*Pulse Oximetry
Patient hypoxic: no
*EKG
Interpreted by ED Provider?: NA
Rate: EKG- N/A
*Slot Manager Interpretation
Rate: Slot Manager- N/A
*Critical Care Note
Total Time (30-mins, 75-104mins- exclusive of procedures): Not Applicable
ED Attending Note
-
Portions of this chart may have been created with voice recognition software.� Occasional wrong word or��sound alike� substitutions may have occurred due to the inherent limitations of voice recognition software.
Discharge Plan
Departure
Patient Disposition: Admit
Date of Disposition: 10/17/23
Time of Disposition: 01:35
Admit to: Telemetry
Presentation/result/management discussed w/ accepting MD/DO: Hospitalist
Patient with high blood pressure during this ER visit?: Yes
Condition: Good
Covid-19: Not Applicable
Discharge Problem:
Pleural effusion on left, Elevated troponin, Accidental fall
Prescriptions:
No Action
lamotrigine 100 MG tablet
100 mg PO BID
ezetimibe 10 MG tablet
10 mg PO HS
rosuvastatin 10 MG tablet
10 mg PO DAILY
aspirin 81 MG tablet,delayed release (DR/EC)
81 mg PO DAILY
allopurinol 100 MG tablet
100 mg PO DAILY
montelukast [Singulair] 10 mg Tablet
10 mg PO UD
Rx Instructions:
take the night before, night of, and night after Darzalex infusion.
gabapentin [Neurontin] 100 mg Capsule
100 mg PO TID
acyclovir 400 mg Tablet
400 mg PO BID
dexamethasone 4 mg Tablet
4 mg PO UD
Rx Instructions:
take the day after Darzalex infusion and for 2 days after.
Darzalex 20 mg/mL Solution
1,800 mg IV QMONTH
Venclexta 100 mg Tablet
200 mg PO DAILY
risperidone 0.25 mg Tablet
0.25 mg PO HS
hydralazine 10 mg Tablet
10 mg PO TID Qty: 90 0RF
amiodarone [Pacerone] 100 mg Tablet
100 mg PO SuTuThSa@0800 Qty: 30 0RF
isosorbide mononitrate 30 mg Tablet Extended Release 24 Hr
30 mg PO DAILY Qty: 0 0RF
Referrals:
UNKNOWN - PT DOES,NOT KNOW [Family Provider] -
Interventions
Interventions:
*Risk Screen - Suicide Last Done: 10/17/23 00:37
*General Assessment Last Done: 10/16/23 23:43
*Neglect/Abuse Screening Last Done: 10/16/23 23:43
ED- Fall Risk Assessment Last Done: 10/17/23 00:37
ED-Musculoskeletal Assessment Last Done: 10/17/23 00:33
ED- Neurological Assessment Last Done: 10/17/23 00:33
ED-Skin Assessment Last Done: 10/17/23 00:33
Discharge Date and Time
Print Language: WOLOF
[2023-10-17 00:49] LABS: % Basophils 0.5 % (0-2); % Immature Granulocytes 2.2 % (0-0.5); % Lymphocytes 8.2 % (20.5-51.1); % Neutrophils 80.1 % (42.2-75.2); Absolute Immature Granulocytes 0.1 10^3/uL (0-0.05); Absolute Lymphocytes 0.5 10^3/uL (1.2-3.4); Absolute Monocytes 0.5 10^3/uL (0.1-0.6); Absolute Neutrophils 4.8 10^3/uL (1.4-6.5); Hematocrit 30.5 % (39.0-52.0); Hemoglobin 9.9 g/dL (13.0-18.0); Mean Corp Hgb Conc. 32.5 g/dL (33.0-37.0); Mean Corpuscular Hgb 28.9 pg (27.0-31.0); Mean Corpuscular Volume 89.2 fL (80.0-94.0); Mean Platelet Volume 10.1 fL (7.4-10.4); Nucleated Red Blood Cells % 0 % (-); Platelet Count 156 10^3/uL (130-400); Red Blood Cell Count 3.42 10^6/uL (4.70-6.10)
[2023-10-17 00:59] LABS: ALT (SGPT) 12 U/L (0-50); AST (SGOT) 29 U/L (17-59); Albumin 2.8 g/dl (3.5-5.0); Alkaline Phosphatase 173 U/L (38-126); Blood Urea Nitrogen 21 mg/dl (9-20); Carbon Dioxide 28 mmol/L (22-30); Chloride 101 mmol/L (98-107); Glucose 115 mg/dl (70-99); Potassium 3.9 mmol/L (3.5-5.1); Sodium 134 mmol/L (135-145); Total Bilirubin 0.8 mg/dl (0.2-1.3); Total Protein 4.9 g/dl (6.3-8.2); eGFR 32.62
[2023-10-17 01:17] LABS: NT-proBNP > 27000 pg/ml; Troponin I 0.183 ng/ml
--- NOTE | 2023-10-17 02:22 | HPS.HSE ---
Family Physician
-
Family Physician: NOT KNOW UNKNOWN - PT DOES
Chief Complaint
-
Fall at Home
History of Present Illness
Patient is a 72y M with PMH significant for ESRD on HD, ASCVD, CHF and A-Fib who presents to ED complaining of fall at home. Patient states he woke from sleep and got up to go to the bathroom. He notes that he felt 'weak in the legs' and then
they 'gave out on me'. He fell to the floor, landing on his buttocks and his L side. He struck his head on the corner of a bureau on his way down. He denies any prodrome of lightheadedness, dizziness or chest pain. He denies any loss of
consciousness. Patient noted significant bleeding from the scalp and called 911. He was brought to the ED for further evaluation.
In the ED, patient states that he is feeling fairly well. He denies any chest pain or dyspnea at present.
He is noted to have a hacking cough during our interview.
Medical History
Past Medical History
Past Medical History: Reports Other
Additional Past Medical History:
ASCVD
Hypertension
Chronic HFrEF
Paroxysmal Atrial Fibrillation
ESRD on HD
Multiple Myeloma / Amyloidosis
Gout
Anemia of Chronic Disease
Recurrent Left Pleural Effusion
Chemo-Induced Peripheral Neuropathy
Depression
Retroperitoneal Bleeding on Eliquis
Past Surgical History: Reports Other
Additional Past Surgical History:
Left IJ HD Catheter
R ACW Port
PTCA with Stent (x 4)
Bilateral TKA
Hernia Repair
Right Rotator Cuff Repair (x 2)
Social History
Tobacco: Former Smoker (Quit smoking in the . Approx 20 pack years total use.)
Alcohol: Occasional (Very rare.)
Drug: None
Family History
Family History: Not pertinent
Allergies / Home Medications
Allergies reflects when Allergies were last updated in [facility] [employer].
Home Medications with original date entered in [employer]
Allergy/Medication List:
Allergies
Allergy/AdvReac Type Severity Reaction Status Date / Time
atorvastatin Allergy MUSCLE Verified 10/16/23 23:36
CRAMPS
Cephalosporins Allergy kidney Verified 10/16/23 23:36
disease
coconut Allergy vomits Verified 10/16/23 23:36
penicillin V Allergy Vomiting Verified 10/16/23 23:36
pregabalin [From Lyrica] Allergy Tongue Verified 10/16/23 23:36
Swelling
simvastatin Allergy muscle Verified 10/16/23 23:36
cramps
Home Medications
lamotrigine 100 mg tablet 100 mg PO BID Neurological Condition 07/24/19
ezetimibe 10 mg tablet 10 mg PO HS High cholesterol 08/26/19
rosuvastatin 10 mg tablet 10 mg PO DAILY High cholesterol 08/26/19
aspirin 81 mg tablet,delayed release 81 mg PO DAILY Blood clot prevention/tx 08/27/19
allopurinol 100 mg tablet 100 mg PO DAILY Gout 06/15/20
gabapentin 100 mg capsule (Neurontin) 100 mg PO TID Pain 09/26/21
montelukast 10 mg tablet (Singulair) 10 mg PO UD bone pain prevention 09/26/21
acyclovir 400 mg tablet 400 mg PO BID Infection 01/03/23
dexamethasone 4 mg tablet 4 mg PO UD Anti-Inflammatory 01/03/23
daratumumab 20 mg/mL intravenous solution (Darzalex) 1,800 mg IV QMONTH Cancer 04/20/23
venetoclax 100 mg tablet (Venclexta) 200 mg PO DAILY Cancer 04/20/23
risperidone 0.25 mg tablet 0.25 mg PO HS Mental Health/Anxiety 08/06/23
amiodarone 100 mg tablet (Pacerone) 100 mg PO SuTuThSa@0800 #30 tabs 08/21/23
hydralazine 10 mg tablet 10 mg PO TID #90 tabs 08/21/23
isosorbide mononitrate 30 mg tablet,extended release 24 hr 30 mg PO DAILY HEART CONDITION #0 tabs 08/21/23
Review of Systems
-
History Source: Patient
A 12 point ROS was completed and negative except as noted: Yes
Constitutional: Reports Fatigue; Denies Fever or Chills
EENT: Denies Sore Throat
Respiratory: Reports Cough; Denies Hemoptysis or Trouble Breathing
Cardiac: Denies Chest Pain, Diaphoresis or Palpitations
Abdomen/GI: Denies Abdominal Pain, Nausea, Vomiting or Diarrhea
: Denies Dysuria, Frequency or Flank Pain
Musculoskeletal: Reports Edema and Other (Buttock pain.); Denies Joint Pain
Neurological: Reports Headache and Weakness; Denies Dizzy or Numbness
Psych: Denies Depression or Anxiety
Physical Exam
Vital Signs
Vital Signs
Temp Pulse Resp BP Pulse Ox
98.2 F 70 20 142/82 100
10/16/23 23:38 10/17/23 01:15 10/17/23 01:15 10/17/23 01:15 10/17/23 01:15
Physical Exam
General: Other (72y M in no acute distress.)
HEENT: Moist mucous membranes, PERRLA and Other (Large scalp hematoma L posterior parietal area. No active bleeding.)
Respiratory: Other (Decreased BS at the L base with dullness to percussion.)
Cardiac: S1/S2 and Regular Rhythm
GI: Soft, Non Tender, Non Distended and Normal Bowel Sounds
Musculoskeletal: No Clubbing, No Cyanosis and Other (2+ pitting edema at ankles bilaterally.)
Neuro: AO x 3
Psych: No Anxious or Depressed
Laboratory Results
-
10/17/23 00:31
10/17/23 00:31
Laboratory Results
Total Bilirubin 0.8 mg/dl (0.2-1.3) 10/17/23 00:31
AST 29 U/L (17-59) 10/17/23 00:31
ALT 12 U/L (0-50) 10/17/23 00:31
Alkaline Phosphatase 173 U/L (38-126) H 10/17/23 00:31
Troponin I 0.183 ng/ml H* 10/17/23 00:31
Impression/Plan
-
A/P: Patient is a 72y M with PMH significant for ESRD on HD, A-Fib, CHF and ASCVD who presents to ED complaining of fall at home.
Fall at Home
L Scalp Hematoma secondary to the above
- Observe overnight for further evaluation and treatment.
- CT head without intracranial abnormality.
- Local care for hematoma.
- No longer on anticoagulation (Eliquis stopped during July admission).
- Follow for any new symptoms / complaints. Repeat STOCKING INSPECTOR imaging for any new symptoms.
- PT / OT assessment in the AM for gait safety.
Recurrent Left Pleural Effusion
- s/p prior thoracentesis this year (March).
- Likely due to hypervolemia / CHF +/- myeloma.
- Not currently hypoxemic and no specific complaints of dyspnea, etc.
- Volume management on HD.
- Consider repeat thoracentesis if needed.
ESRD on HD
- Initiated on HD during prior admission following L renal hemorrhage / retroperitoneal bleed.
- Labs fair at present. Trop / BNP not terribly reliable given HD status.
- Nephrology consult for HD needs (next session due today - MWF).
ASCVD
- Stable. No complaints of chest pain, dyspnea, etc.
- EKG has not been done and will obtain this now.
- Troponin elevation noted - not significantly changed from multiple prior values.
- Follow for any symptoms suggestive of ischemia.
- Trend trop x 3 sets to rule out any significant elevation.
- Continue usual CV med regimen.
Chronic HFrEF
- BNP elevated - but again, question reliability in patient recently initiated on HD treatments.
- Volume management on HD as noted above.
- Follow daily weights, I/Os, etc.
Paroxysmal Atrial Fibrillation
- Stable. Continue amiodarone per outpatient schedule.
- No longer on OAC following significant bleeding event from July.
Benign Hypertension
- Stable. Continue usual medications with holding parameters.
Multiple Myeloma / Cardiac Amyloidosis
- Stable. Continue venetoclax.
- Receives Darzalex monthly.
- f/u with Oncology as an outpatient.
DVT Prophylaxis: SCDs
Code Status: Full
[2023-10-17 03:05] LABS: COVID-19 Antigen Negative (Negative)
[2023-10-17 04:50] LABS: Hematocrit 30.7 % (39.0-52.0); Mean Corp Hgb Conc. 32.6 g/dL (33.0-37.0); Mean Corpuscular Hgb 29.7 pg (27.0-31.0); Mean Corpuscular Volume 91.1 fL (80.0-94.0); Mean Platelet Volume 10.4 fL (7.4-10.4); Platelet Count 141 10^3/uL (130-400); Red Blood Cell Count 3.37 10^6/uL (4.70-6.10); Red Cell Dist. Width 15.9 % (11.5-14.5); White Blood Cell Count 6.5 10^3/uL (4.8-10.8)
[2023-10-17 05:16] LABS: Blood Urea Nitrogen 21 mg/dl (9-20); Calcium 8.2 mg/dl (8.4-10.2); Carbon Dioxide 30 mmol/L (22-30); Chloride 101 mmol/L (98-107); Glucose 95 mg/dl (70-99); Potassium 3.9 mmol/L (3.5-5.1); Sodium 134 mmol/L (135-145); eGFR 30.85
[2023-10-17 05:34] LABS: Troponin I 0.176 ng/ml
[2023-10-17] MEDS: CRESTOR 10 MG PO (08:28)
[2023-10-17] MEDS: ASPIR LOW (ENTERIC COATED) 81 MG PO (08:28)
[2023-10-17] MEDS: NEURONTIN 100 MG PO ×3 (08:29→21:04)
[2023-10-17] MEDS: ZYLOPRIM 100 MG PO (08:29)
[2023-10-17] MEDS: LAMICTAL 100 MG PO ×2 (08:29→20:20)
[2023-10-17] MEDS: APRESOLINE 10 MG PO ×3 (08:29→21:04)
[2023-10-17] MEDS: ZOVIRAX 400 MG PO ×2 (08:30→20:20)
[2023-10-17] MEDS: IMDUR (EXTENDED RELEASE) 30 MG PO (08:30)
--- NOTE | 2023-10-17 10:22 | W.CON.NEPH ---
Consultation
-
Date/Time Consultation Requested: 10/17/23 0430
Date/Time Consultation Performed: 10/17/23929
Requesting Provider: Mohsen Johnson
Performing Provider: Patricia Christianson
Reason for Consultation: ESRD
Medical History
-
Chief Complaint: fall
History of Present Illness:
72y M with PMH significant for ESRD on HD recently started in July 2023 after having RPB, left CW tunneled catheter at [facility] on MWF, HTN on low dose hydralazine, ASCVD on ASA, imdur, CHF and A-Fib on Amiodarone who presents to ED
complaining of fall at home middle of night. Patient states he woke from sleep and got up to go to the bathroom. Feels legs gave out and he fell to the floor, landing on his buttocks and his L side. He struck his head on the corner of a bureau on
his way down. He denies any prodrome of lightheadedness, dizziness or chest pain. He denies any loss of consciousness. He notes increased cough lately. Reports no issues with his dialysis, cr low and his windows security analyst wanted him to continue HD for
now.
Past Medical History
ASCVD
Hypertension
Chronic HFrEF
Paroxysmal Atrial Fibrillation
ESRD on HD
Multiple Myeloma / Amyloidosis
Gout
Anemia of Chronic Disease
Recurrent Left Pleural Effusion
Chemo-Induced Peripheral Neuropathy
Depression
Retroperitoneal Bleeding on Eliquis
Past Surgical History: Other (Left IJ HD Catheter R ACW Port PTCA with Stent (x 4) Bilateral TKA Hernia Repair Right Rotator Cuff Repair (x 2))
Social History
Tobacco: Former Smoker (quit in )
Alcohol: Occasional
Drug: None
Family History
Family History: Not Pertinent
Allergies / Home Medications
Allergy/AdvReac Type Severity Reaction Status Date / Time
atorvastatin Allergy MUSCLE Verified 10/16/23 23:36
CRAMPS
Cephalosporins Allergy kidney Verified 10/16/23 23:36
disease
coconut Allergy vomits Verified 10/16/23 23:36
penicillin V Allergy Vomiting Verified 10/16/23 23:36
pregabalin [From Lyrica] Allergy Tongue Verified 10/16/23 23:36
Swelling
simvastatin Allergy muscle Verified 10/16/23 23:36
cramps
�Medication �Instructions �Recorded �Confirmed �Type
lamotrigine 100 mg tablet 100 mg PO BID Neurological 07/24/19 10/17/23 History
Condition
ezetimibe 10 mg tablet 10 mg PO HS High cholesterol 08/26/19 10/17/23 History
rosuvastatin 10 mg tablet 10 mg PO DAILY High cholesterol 08/26/19 10/17/23 History
aspirin 81 mg tablet,delayed 81 mg PO DAILY Blood clot 08/27/19 10/17/23 History
release prevention/tx
allopurinol 100 mg tablet 100 mg PO DAILY Gout 06/15/20 10/17/23 History
gabapentin 100 mg capsule 100 mg PO TID Pain 09/26/21 10/17/23 History
(Neurontin)
montelukast 10 mg tablet 10 mg PO UD bone pain prevention 09/26/21 10/17/23 History
(Singulair)
acyclovir 400 mg tablet 400 mg PO BID Infection 01/03/23 10/17/23 History
dexamethasone 4 mg tablet 4 mg PO UD Anti-Inflammatory 01/03/23 10/17/23 History
daratumumab 20 mg/mL intravenous 1,800 mg IV QMONTH Cancer 04/20/23 10/17/23 History
solution (Darzalex)
venetoclax 100 mg tablet 200 mg PO DAILY Cancer 04/20/23 10/17/23 History
(Venclexta)
risperidone 0.25 mg tablet 0.25 mg PO HS Mental Health/Anxiety 08/06/23 10/17/23 History
amiodarone 100 mg tablet (Pacerone) 100 mg PO SuTuThSa@0800 #30 tabs 08/21/23 10/17/23 Rx
hydralazine 10 mg tablet 10 mg PO TID #90 tabs 08/21/23 10/17/23 Rx
isosorbide mononitrate 30 mg 30 mg PO DAILY HEART CONDITION #0 08/21/23 10/17/23 Rx
tablet,extended release 24 hr tabs
Review of Systems
-
All complete 12 point ROS have been inquired and found negative other than stated in HPI
Physical Exam
Vital Signs
Vital Signs
Temp Pulse Resp BP Pulse Ox
98.2 F 76 20 155/83 93
10/16/23 23:38 10/17/23 08:29 10/17/23 01:15 10/17/23 08:29 10/17/23 06:00
Lab Results
WBC 6.5 10^3/uL (4.8-10.8) 10/17/23 04:43
RBC 3.37 10^6/uL (4.70-6.10) L 10/17/23 04:43
Hgb 10.0 g/dL (13.0-18.0) L 10/17/23 04:43
Hct 30.7 % (39.0-52.0) L 10/17/23 04:43
Plt Count 141 10^3/uL (130-400) 10/17/23 04:43
Sodium 134 mmol/L (135-145) L 10/17/23 04:43
Potassium 3.9 mmol/L (3.5-5.1) 10/17/23 04:43
Chloride 101 mmol/L (98-107) 10/17/23 04:43
Carbon Dioxide 30 mmol/L (22-30) 10/17/23 04:43
BUN 21 mg/dl (9-20) H 10/17/23 04:43
Creatinine 2.2 mg/dL (0.7-1.3) H 10/17/23 04:43
eGFR 30.85 10/17/23 04:43
Glucose 95 mg/dl (70-99) 10/17/23 04:43
Calcium 8.2 mg/dl (8.4-10.2) L 10/17/23 04:43
Ykk-P-Hpcypooxrui Pept > 93434 pg/ml 10/17/23 00:31
Albumin 2.8 g/dl (3.5-5.0) L 10/17/23 00:31
CT head:
IMPRESSION: No acute intracranial abnormality identified. Small left scalp hematoma.
CXR:
IMPRESSION:
Moderate left and small right pleural effusions.
Physical Exam
General: Awake, Alert, Oriented, AOx3, No Distress and Nontoxic
HEENT: EOMI, Anicteric, Facial Symmetry, Neck Supple and No JVD
Respiratory: Clear (decreased), Normal Excursion and Nonlabored Respirations
Cardiac: S1/S2 and Regular Rate/Rhythm
Breast: Deferred by me
Abdomen: Soft, Nontender and Nondistended
Musculoskeletal: No Cyanosis and No Edema
Skin: No Rash
Neuro: Nonfocal/Grossly Intact
Psych: Mood/afflect pleasant, Insight/judgement good and Appropriate
Vascular Access: CVC
Data Reviewed
-
Labs: Labs Reviewed by me and Discussed with Patient
Assessment/Plan
-
IMP:
Fall at home
recurrent left pleural effusion
ESRD -MWF HD at [facility]
left CW tunneled HD catheter
CAD with cardiac stents
Paroxysmal atrial fibrillation
Second-degree AV block Mobitz type 1
Heart failure with preserved ejection fraction
AL Amyloidosis
Multiple Myeloma
Left inferior renal artery bleed status postembolization 08/06/2023
Plan:
a/w fall, small hematoma of scalp
plan HD today
cr is low, per pt report- was told to continue HD for time being per his windows security analyst
follow labs at home unit
Bp stable
no edema or extra volume on exam
given fall, will be gentle in UF
prn thoracentesis for left pleural effusion
d/w pt
--- NOTE | 2023-10-17 11:27 | EDRN ---
Patient able to ambulate with steady gait using cane. No complaints at this time. Transferred to hospital bed. Medicated per MAY. Given menu to order lunch. Waiting for power system engineer to come do bedside Dialysis.
--- NOTE | 2023-10-17 11:35 | CM ---
CM reviewed chart. CM introduced self and role. Patient was at bedside. CM spoke with patient at bedside.
Patient lives alone. He is current with [facility] in [place]. He is independent. He has 1 son, 1 daughter and an ex- who are supportive. He lives in 1 story home. He has 2 steps to enter in the home. He drives. He plans on driving himself
home once he is he discharged from the hospital. He denies owning any DME. He is able to afford his monthly expenses.
PCP: Dr. Bang Lambert
Pharmacy: [facility] in [place]
Agreeable to [facility] if need: Unsure\\
DISCHARGE DISPOSITION:
Home with continuation of care at [facility].
[2023-10-17 11:47] LABS: Troponin I 0.186 ng/ml
--- NOTE | 2023-10-17 11:47 | EDRN ---
granulizing machine operator at bedside.
--- NOTE | 2023-10-17 14:33 | W.PN.NEPH.HD ---
Assessment
-
pt seen during HD
vitals stable
UF as tolerates to EDW, avoiding large UF with fall
CVC functions well
Progress Note - Hemodialysis
-
Date of Service: October 17, 2023
Duration: 30 minutes and 3 hours
Potassium Bath: 3
Calcium Bath: 2.5
Opti-Dialyzer: 160
Ultrafiltration: Other (1.5kg)
Blood Flow: 400
Dialysate Flow: 600
Heparin: no
EPO: 2000
[2023-10-17] MEDS: RETACRIT 2000 UNITS IV (14:49)
[2023-10-17] MEDS: HEPARIN 4400 UNITS INTRACATH (15:17)
--- NOTE | 2023-10-17 17:47 | PTCARENOTE ---
Patient from ED to . Pt refused skin tear assessment. new dressing applied in ED. dressing on B/L arms intact and dry.
[2023-10-17] MEDS: ZETIA 10 MG PO (21:07)
[2023-10-17] MEDS: RISPERDAL 0.25 MG PO (21:08)
[2023-10-18 03:33] VITALS: BP 161/76
[2023-10-18 07:15] VITALS: BP 154/82
[2023-10-18] MEDS: APRESOLINE 10 MG PO (08:39)
[2023-10-18] MEDS: CRESTOR 10 MG PO (08:39)
[2023-10-18] MEDS: NEURONTIN 100 MG PO (08:42)
[2023-10-18] MEDS: ASPIR LOW (ENTERIC COATED) 81 MG PO (08:42)
[2023-10-18] MEDS: IMDUR (EXTENDED RELEASE) 30 MG PO (08:42)
[2023-10-18] MEDS: LAMICTAL 100 MG PO (08:42)
[2023-10-18] MEDS: ZYLOPRIM 100 MG PO (08:42)
[2023-10-18] MEDS: ZOVIRAX 400 MG PO (08:43)
[2023-10-18] MEDS: PACERONE 100 MG PO (08:44)
[2023-10-18 11:05] VITALS: BP 158/78
--- NOTE | 2023-10-18 11:08 | W.PN.NEPH.PH ---
Today's Communication / Plan
-
- HD tomorrow if needed
Assessment/Plan
-
IMP:
Fall at home
recurrent left pleural effusion
ESRD -MWF HD at [facility]
left CW tunneled HD catheter
CAD with cardiac stents
Paroxysmal atrial fibrillation
Second-degree AV block Mobitz type 1
Heart failure with preserved ejection fraction
AL Amyloidosis
Multiple Myeloma
Left inferior renal artery bleed status postembolization 08/06/2023
Plan:
a/w fall, small hematoma of scalp
HD tomorrow if patient is not discharged
cr is low, per pt report- was told to continue HD for time being per his cardiac rehabilitation program director
follow labs at home unit
Bp stable
no edema or extra volume on exam
given fall, will be gentle in UF
prn thoracentesis for left pleural effusion
d/w pt
-
-
Date of Service: October 18, 2023
CC / HPI / ROS
-
Chief Complaint:
ESRD
History of Present Illness:
fall, feeling better
completed HD yesterday per usual schedule
HD MWF
Review of Systems:
hoping for dc today
Labs
-
Labs:
WBC 6.5 10^3/uL (4.8-10.8) 10/17/23 04:43
RBC 3.37 10^6/uL (4.70-6.10) L 10/17/23 04:43
Hgb 10.0 g/dL (13.0-18.0) L 10/17/23 04:43
Hct 30.7 % (39.0-52.0) L 10/17/23 04:43
Plt Count 141 10^3/uL (130-400) 10/17/23 04:43
Sodium 134 mmol/L (135-145) L 10/17/23 04:43
Potassium 3.9 mmol/L (3.5-5.1) 10/17/23 04:43
Chloride 101 mmol/L (98-107) 10/17/23 04:43
Carbon Dioxide 30 mmol/L (22-30) 10/17/23 04:43
BUN 21 mg/dl (9-20) H 10/17/23 04:43
Creatinine 2.2 mg/dL (0.7-1.3) H 10/17/23 04:43
eGFR 30.85 10/17/23 04:43
Glucose 95 mg/dl (70-99) 10/17/23 04:43
Calcium 8.2 mg/dl (8.4-10.2) L 10/17/23 04:43
Cee-D-Ovuyhuwgxay Pept > 14121 pg/ml 10/17/23 00:31
Albumin 2.8 g/dl (3.5-5.0) L 10/17/23 00:31
Physical Exam
-
Vital Signs:
Vital Signs
Temp Pulse Resp BP Pulse Ox
98.6 F 77 18 154/82 97
10/18/23 07:15 10/18/23 08:39 10/18/23 07:15 10/18/23 08:39 10/18/23 10:07
Cardiovascular:: Regular rate and rhythm
Respiratory:: Bilateral: CTA
Lung Excursion:: Normal
Abdomen:: Nontender and Soft
Bowel Sounds:: Normal
Extremity Edema:: None: Bilateral:
Viera Catheter: No
--- NOTE | 2023-10-18 11:47 | W.PN.HOSP.TC ---
Today's Communication/Plan
-
DC home after seen by PT/OT
Assessment / Plan
Assessment / Plan
Presented for a mechanical fall. Orthostatic positive. Received hemodialysis. Repeat orthostatics today. Physical therapy to evaluate.
He denies dizziness shortness of breath today. Even with movement. Therefore would likely plan to discharge home after.
ESRD on HD outpatient nephrology follow-up continue binders
Recurrent left pleural effusion as he is not symptomatic at this time outpatient follow-up
HFrEF, primarily
Management with hemodialysis. Follow daily weights.
Paroxysmal atrial fibrillation no longer on oral anticoagulant due to significant bleeding event from July.
Multiple myeloma and cardiac amyloid stable continue specialty medications and outpatient oncology follow-up
Anticipated Discharge: Today
Subjective/Interval History
-
Seen and examined. No new complaints. No acute overnight events.
Prior to his legs giving out he did not pee or poop himself. No inner thigh numbness. No dizziness chest pain shortness of breath palpitations. States that sometimes his legs give out.
Objective Data
-
Vital Signs:
Vital Signs
Temp Pulse Resp BP Pulse Ox
98.6 F 77 18 154/82 97
10/18/23 07:15 10/18/23 08:39 10/18/23 07:15 10/18/23 08:39 10/18/23 10:07
I&O
10/17/23 10/18/23 10/19/23
06:59 06:59 06:59
Intake Total 460 / 460
Balance 460 / 460
--- NOTE | 2023-10-18 11:53 | W.DCSUMMARY ---
Discharge Summary
Discharge Data
Date of Admission: 10/17/23
Date of Discharge: 10/18/23
-
Pending Results: No
Hospital Course
72y M with PMH significant for ESRD on HD, ASCVD, CHF and A-Fib presented after fall was getting up to go to the bathroom, legs gave out, on the way down noted head injury which caused a scalp hematoma. CT brain without evidence of intracranial
bleeding. For physical therapy hemodialysis and concussion follow-up. Additionally, chest x-ray again showing moderate left/small right pleural effusion. History of known requirements of thoracentesis he is not requiring supplemental oxygen and
no symptoms at this time therfore, will hold off on thoracentesis at this time. Received hemodialysis in the ED.
Outpatient nephrology PCP follow
Please review concussion instructions. At the time of discharge without symptoms of concussion
Discharge Plan
-
Patient Disposition: Home (Routine Discharge)
Discharge Diagnosis/Procedures: Fall
Condition: Fair
Diet: As tolerated
Activity: As tolerated
Activity Restrictions/Additional Instructions:
cc
Instructions: Concussion in adults
Referrals:
Kris Monae V., DO [Active] - in one week
UNKNOWN - PT DOES,NOT KNOW [Family Provider] -
Prescriptions:
Continued
lamotrigine 100 MG tablet
100 mg PO BID
ezetimibe 10 MG tablet
10 mg PO HS
rosuvastatin 10 MG tablet
10 mg PO DAILY
aspirin 81 MG tablet,delayed release (DR/EC)
81 mg PO DAILY
allopurinol 100 MG tablet
100 mg PO DAILY
montelukast [Singulair] 10 mg Tablet
10 mg PO UD
Rx Instructions:
take the night before, night of, and night after Darzalex infusion.
gabapentin [Neurontin] 100 mg Capsule
100 mg PO TID
acyclovir 400 mg Tablet
400 mg PO BID
dexamethasone 4 mg Tablet
4 mg PO UD
Rx Instructions:
take the day after Darzalex infusion and for 2 days after.
Darzalex 20 mg/mL Solution
1,800 mg IV QMONTH
Venclexta 100 mg Tablet
200 mg PO DAILY
risperidone 0.25 mg Tablet
0.25 mg PO HS
hydralazine 10 mg Tablet
10 mg PO TID Qty: 90 0RF
amiodarone [Pacerone] 100 mg Tablet
100 mg PO SuTuThSa@0800 Qty: 30 0RF
isosorbide mononitrate 30 mg Tablet Extended Release 24 Hr
30 mg PO DAILY Qty: 0 0RF
Discharge Orders:
Discharge Patient (As Directed); Ordered 10/18/23
Ordered By: Ibrahima Jeffrey
Discharge Date and Time
Print Language: PERSIAN
[2023-10-18 12:10] VITALS: BP 145/81; BP 149/69; BP 158/78; PULSE 75; PULSE 76; PULSE 82
[2023-10-18 12:13] VITALS: BP 148/90; PULSE 77
--- NOTE | 2023-10-18 12:17 | PTOTSP ---
The patient is independent with ambulation and elevations, offering no concerns regarding mobility upon return home. No PT needs identified at this time, will sign off.
--- NOTE | 2023-10-18 13:03 | CM ---
Patient has been medically cleared for discharge to home with no additional skilled services. Patient will continue his outpatient HD with [facility]. Patient has arranged for transport home.
== END 2023-10-18 12:54 | disposition home or self-care (01) ==
LOC: 2 NORTH 04:02
PROVIDERS: Clinical Nurse Specialist Family Health; ADMITTING PHYSICIAN Hospitalist; ATTENDING PHYSICIAN Hospitalist; EMERGENCY PHYSICIAN Emergency Medicine; OTHER PHYSICIAN Internal Medicine
DX: R53.1 Weakness (principal); S00.03XA Contusion of scalp, initial encounter; W01.190A Fall on same level from slipping, tripping and stumbling with subsequent striking against furniture, initial encounter; Y93.01 Activity, walking, marching and hiking; Y92.003 Bedroom of unspecified non-institutional (private) residence as the place of occurrence of the external cause; J90 Pleural effusion, not elsewhere classified; I13.2 Hypertensive heart and chronic kidney disease with heart failure and with stage 5 chronic kidney disease, or end stage renal disease; I48.0 Paroxysmal atrial fibrillation; N18.6 End stage renal disease; I50.22 Chronic systolic (congestive) heart failure; I25.10 Atherosclerotic heart disease of native coronary artery without angina pectoris; E78.00 Pure hypercholesterolemia, unspecified; C90.00 Multiple myeloma not having achieved remission; I25.2 Old myocardial infarction; F32.A Depression, unspecified; D63.1 Anemia in chronic kidney disease; E85.4 Organ-limited amyloidosis; I43 Cardiomyopathy in diseases classified elsewhere; I44.1 Atrioventricular block, second degree; R05.9 Cough, unspecified; M10.9 Gout, unspecified; Z79.82 Long term (current) use of aspirin; Z99.2 Dependence on renal dialysis; Z88.1 Allergy status to other antibiotic agents; Z88.0 Allergy status to penicillin; Z88.8 Allergy status to other drugs, medicaments and biological substances; Z87.891 Personal history of nicotine dependence; Z91.018 Allergy to other foods; Z95.5 Presence of coronary angioplasty implant and graft; Z96.653 Presence of artificial knee joint, bilateral; Z87.442 Personal history of urinary calculi; Z79.624 Long term (current) use of inhibitors of nucleotide synthesis; Z11.52 Encounter for screening for COVID-19
CPT/HCPCS: 90935; 70450; 71046; 80048; 80053; 83880; 84484; 85025; 85027; 87811; 93005; 97161; G0378; P9047; Q5106

== ENCOUNTER 2023-11-01 16:03 | Inpatient (IN) | payer MEDICARE, SELFPAY ==
[2023-11-01] VITALS (9 sets, daily range): BP systolic 92–139; BP diastolic 54–76; BMI 23.7; BMI 23.6
--- NOTE | 2023-11-01 13:03 | ED.GENMED ---
History of Present Illness
General
Chief Complaint: Breathing Problem
Source: patient
Exam Limitations: none
Time Seen by Provider: 11/01/23 12:57
History of Present Illness
History of Present Illness:
72-year-old male complaining of shortness of breath with exertion. Has been mild for months with exertion but significantly more severe today. Some chest tightness with this. Asymptomatic at rest. Patient is a Sunday dialysis
patient. No fever no unusual cough no pleuritic pain.
Past History
Past History
ED Past Medical History: Arrthythmia (Atrial fib), CAD, Cancer (multiple myeloma, Skin CA), CHF, HTN, Hypercholesterolemia, NH, Renal failure (Dialysis M-W-F), Psychiatric (Depression) and Other (chronic renal disease, amyloidosis, Syncope, Renal
calculus, Lymes, )
ED Past Surgical History: Cardiac (Stents X 4), Orthopedic (Cancer removed from left shoulder, Left knee meniscus, Right rotator cuff, , Bilateral knee replacement) and Other (Hernia repair, )
Social History
Tobacco: Former smoker
Alcohol: Occasional
Personal:
Living: alone
Employment: Not employed
Review of Systems
Review of Systems
All Other Systems: Not applicable
Constitutional: Denies fever or chills
Cardiac: Denies palpitations or syncope
Phy Exam
Physical Exam
Physical Exam:
GENERAL: Alert and oriented in no apparent distress
EYE: Orbits normal.
NECK: Supple
ENT: Pharynx without erythema
CARDIAC: Regular rate and rhythm without any obvious murmurs.
LUNGS: No respiratory distress at rest. A few crackles in the bases. No wheezing or rhonchi. Tunneled catheter
ABDOMEN: Soft, without focal tenderness or distention
NEUROLOGICAL: Alert and oriented , grossly non-focal
SKIN: Warm and dry, no rash or lesion, no discoloration, skin intact.
MUSCULOSKELETAL: No edema,no deformity.Good color
PSYCH: Normal and appropriate interaction.
Scores
Heart Failure Risk
Heart Failure Risk Score: Yes
History of Stroke or TIA: No
History of intubation for respiratory distress: No
Heart rate on ED arrival >/= 110: No
SaO2 <90% on arrival on room air: No
HR >/=110 during 3min walk test (or too ill to perform test): Yes
ECG has acute ischemic changes: No
Urea >/=12mmol/L (BUN 33.6mg/dL): No
Serum CO2>/=35mmol/L: No
Troponin I or T elevated to [place] Level (0.4mg/dL): No
NT-proBNP >/=5,000ng/L (5,000pg/ml): Yes
HF Risk Score: 3
Admission Status: HIGH RISK 15.9% Consider SNF treatment or admission to hospital
Course
Orders/Labs/Results
Orders:
Orders
11/01/23 12:13
Electrocardiogram (*1) Urgent
Reason for Study: Shortness of Breath
EKG- Treatment ONCE
11/01/23 13:03
Cardiac Monitoring- Treatment ONCE
IV Insert/Care/Rem.- Treatment PRN
CR Chest - 2 Views Urgent
Comment:
Reason For Exam: Short of breath
Pulse Ox/cont/shift [RESP] Stat
Quantity: 1
11/01/23 13:22
Basic Metabolic Panel Urgent
Complete Blood Count/With Diff Urgent
NT-proBNP Urgent
Troponin I Urgent
11/01/23 Dinner
Potassium, 2 Gram
At Your Request: Full Participation
Does patient need a safe tray?: No
Fluid Restriction: 1200 mL/day (40 oz)
11/01/23 15:40
NEPHROLOGY CONSULT Routine
Consulting Provider: Kris Monae V.
Was physician already notified: Yes
Reason for consult: esrd dialysis mowefr
11/01/23 15:47
IRAD CONSULT Routine
Consulting Provider: Billy Cordova
Was physician already notified: Yes
Reason for Consult/Procedure: recurrent left pleueral effusion
Acknowledgement that appropriate orders are entered: Yes
Acid Fast Culture & Smear Routine
KRISTA Source: Pleural Fluid
Specimen Description:
Comment: post procedure
Body Fluid Amylase Routine
Fluid Source: Pleural
Body Fluid Cell Count Routine
What is the Body Fluid: pleural fluid
Comment: post procedure
Body Fluid Glucose Routine
Fluid Source: Pleural
Body Fluid LDH Routine
Fluid Source: Pleural
Body Fluid Protein Routine
Fluid Source: Pleural
Body Fluid Triglycerides Routine
Fluid Source: Pleural
Body Fluid pH Routine
Fluid Source: Pleural
Fluid Culture with Gram Stain Routine
KRISTA Source: Pleural Fluid
Specimen Description:
Comment: post procedure
Fungus Culture Routine
KRISTA Source: Pleural Fluid
Specimen Description:
Fungus Smear Routine
KRISTA Source: Pleural Fluid
Specimen Description:
Gram Stain Routine
KRISTA Source: Pleural Fluid
Specimen Description:
Comment: POST PROCEDURE
IRAD Cytology Routine
Source: Pleural Fluid, Left
Clinical Impression: chf
11/01/23 15:49
Admit/Transfer Patient As Directed
Co-Sign Provider:
Level of Care: Inpatient admission
Assign to:: Telemetry
Physician / Group: stormy morrow
Diagnosis: recurrent l plueral eff, chf, esrd dilaysis
Reason for Telemetry: Arrhythmia
Date to Stop Telemetry: 11/04/23
Time to Stop Telemetry: 11:00
Reason for Hospitalization: recurrent l plueral eff, chf, esrd dilaysis
Expected length of stay greater than two midnights?: Yes
ELOS- Estimated Length of Stay in days: 3
I certify the patient meets the requirements for IP care: Yes
Code Status As Directed
Resuscitation Status: Full Code
11/01/23 15:54
PRN Pain Medication Management As Directed
May give lesser potent ordered pain med per pt: Yes
preference::
Protocol:: Medication orders for pain may be administered in a
manner that supports deferring to patient preference
when the pt is:
- Requesting an ordered lesser potent pain medication.
Least to most potent pain medications are defined
as: acetaminophen < NSAID < tramadol < opioids
(morphine, oxycodone, hydromorphone).
- Requesting a lesser dose of the same medication IF
ORDERED.
- Requesting a less intrusive route of administration
if both routes are prescribed by the provider (PO <
IV).
11/01/23 17:01
Acetaminophen [Tylenol] 650 mg PO Q4HPRN PRN
Gabapentin [Neurontin] 100 mg PO TID
HydrALAZINE [Apresoline] 10 mg PO TID
Montelukast Sodium [Singulair] 10 mg PO UD
11/01/23 17:01
Activity As Directed
Activity Level: With Assistance
Intake/ Output As Directed
Frequency: Per unit guidelines
Pneumatic Compression Sleeves As Directed
Type: Knee high
Vital Signs As Directed
Frequency: Per unit guidelines
Weight As Directed
Frequency: Daily
Pulse Ox/spot Check [RESP] Routine
Quantity: 1
Ot Eval And Treat Routine
Pt Eval And Treat Routine
Activity Level: As Tolerated
DX Deep Vein Thrombosis Video Routine
11/01/23 20:00
Troponin I Urgent
Acyclovir [Zovirax] 200 mg PO BID
Lamotrigine [Lamictal] 100 mg PO BID
11/01/23 22:00
Ezetimibe [Zetia] 10 mg PO HS
Risperidone [Risperdal] 0.25 mg PO HS
11/02/23 06:10
Comprehensive Metabolic Panel IN AM
Magnesium IN AM
Phos [Phosphorus] IN AM
11/02/23 06:11
Complete Blood Count/With Diff IN AM
11/02/23 08:00
Allopurinol [Zyloprim] 100 mg PO DAILY
Aspirin Low Dose EC [Aspir Low (Enteric Coated)] 81 mg PO DAILY
ISOSORBIDE MONOnitrate ER [Imdur (Extended Release)] 30 mg PO DAILY
Rosuvastatin Calcium [Crestor] 10 mg PO DAILY
venetoclax [Venclexta] See Dose Instructions PO DAILY
11/03/23 06:00
Complete Blood Count/With Diff IN AM
Comprehensive Metabolic Panel IN AM
11/03/23 08:00
Amiodarone [Pacerone] 100 mg PO SuTuThSa@0800
11/04/23 06:00
Complete Blood Count/With Diff IN AM
Comprehensive Metabolic Panel IN AM
11/04/23 11:00
DC Protocol for Telemetry ONCE
Abnormal Lab Results
11/01/23
13:22
WBC 3.3 L 10^3/uL
(4.8-10.8)
RBC 3.49 L 10^6/uL
(4.70-6.10)
Hgb 10.0 L g/dL
(13.0-18.0)
Hct 31.0 L %
(39.0-52.0)
MCHC 32.3 L g/dL
(33.0-37.0)
RDW 15.6 H %
(11.5-14.5)
MPV 10.6 H fL
(7.4-10.4)
Absolute Lymphs (auto) 0.2 L 10^3/uL
(1.2-3.4)
Neutrophils % 79.9 H %
(42.2-75.2)
Lymphocytes % 6.0 L %
(20.5-51.1)
Monocytes % 13.8 H %
(1.7-9.3)
Sodium 131 L mmol/L
(135-145)
BUN 21 H mg/dl
(9-20)
Creatinine 2.0 H mg/dL
(0.7-1.3)
Glucose 134 H mg/dl
(70-99)
Calcium 8.1 L mg/dl
(8.4-10.2)
Troponin I 0.118 H* ng/ml
11/01/23 13:22
11/01/23 13:22
Vital Signs
Initial and Last Documented VS:
Initial Vital Signs
Temp Pulse Resp BP Pulse Ox
98.1 F 78 16 103/54 97
11/01/23 12:10 11/01/23 12:10 11/01/23 12:10 11/01/23 12:10 11/01/23 12:10
Last Documented Vital Signs
Temp Pulse Resp BP Pulse Ox
97.6 F 68 18 150/79 98
11/02/23 03:50 11/02/23 03:50 11/02/23 03:50 11/02/23 03:50 11/02/23 03:50
MDM/Problems Addressed
Differential Diagnosis Includes:
Progressive shortness of breath with exertion with chest tightness. Much worse today. Clinically stable at this time. Cardiac versus pulmonary etiology. Reports suspicious of fluid retention or angina. Workup in progress
*Radiology
Radiology exam reviewed: radiology read reviewed (Bilateral pleural effusions)
*Pulse Oximetry
Patient hypoxic: no
*EKG
Interpreted by ED Provider?: Yes
Interpretation: abnormal
Comparison EKG: changes noted
Heart Rate: 76
Rate: normal
Rhythm: other (Junctional)
[place]: left axis deviation
Interval: normal interval
QRS Pattern: normal QRS and left vent hypertrophy
Ischemia: non-specific ST changes
*Critical Care Note
Total Time (30-74mins, 75-104mins- exclusive of procedures): Not Applicable
Data Reviewed
Review of Other/Old Records Reveals: Labs, Records, Radiology Studies, Testing and Discharge Summary
Update Note
Update Note:
Patient with bilateral pleural effusions. Elevated troponin but stable. Elevated proBNP. Stable at risk however describing shortness of breath with exertion. With patient's multiple medical issues feel readmission is warranted
ED Attending Note
-
Portions of this chart may have been created with voice recognition software.� Occasional wrong word or��sound alike� substitutions may have occurred due to the inherent limitations of voice recognition software.
Discharge Plan
Departure
Patient Disposition: Admit
Date of Disposition: 11/01/23
Time of Disposition: 14:59
Presentation/result/management discussed w/ accepting MD/DO: Hospitalist
Discharge Problem:
Progressive dyspnea on exertion, Bilateral pleural effusions, Renal failure, History of CAD/chronic troponin elevatio
Interventions
Interventions:
*Risk Screen - Suicide Last Done: 11/01/23 17:04
*General Assessment Last Done: 11/01/23 12:37
*Neglect/Abuse Screening Last Done: 11/01/23 12:37
ED- Fall Risk Assessment Last Done: 11/01/23 12:37
*ED COVID-19 Vaccine History Last Done: 11/01/23 17:04
*Nursing Disposition Last Done: 11/01/23 16:37
ED- Cardiac Assessment Last Done: 11/01/23 12:37
ED- Pulmonary Assessment Last Done: 11/01/23 12:37
Discharge Date and Time
Discharge Date/Time: 11/01/23 16:38
[2023-11-01 13:31] LABS: % Basophils 0.3 % (0-2); % Monocytes 13.8 % (1.7-9.3); % Neutrophils 79.9 % (42.2-75.2); Absolute Lymphocytes 0.2 10^3/uL (1.2-3.4); Absolute Monocytes 0.5 10^3/uL (0.1-0.6); Absolute Neutrophils 2.7 10^3/uL (1.4-6.5); Mean Corp Hgb Conc. 32.3 g/dL (33.0-37.0); Mean Corpuscular Hgb 28.7 pg (27.0-31.0); Mean Corpuscular Volume 88.8 fL (80.0-94.0); Mean Platelet Volume 10.6 fL (7.4-10.4); Nucleated Red Blood Cells % 0 % (-); Platelet Count 238 10^3/uL (130-400); Red Blood Cell Count 3.49 10^6/uL (4.70-6.10); Red Cell Dist. Width 15.6 % (11.5-14.5); White Blood Cell Count 3.3 10^3/uL (4.8-10.8)
[2023-11-01 14:07] LABS: NT-proBNP > 27000 pg/ml; Troponin I 0.118 ng/ml
[2023-11-01 14:12] LABS: Blood Urea Nitrogen 21 mg/dl (9-20); Calcium 8.1 mg/dl (8.4-10.2); Carbon Dioxide 28 mmol/L (22-30); Chloride 99 mmol/L (98-107); Estimated Creatinine Clearance 35 ml/min; Glucose 134 mg/dl (70-99); Sodium 131 mmol/L (135-145); eGFR 34.59
--- NOTE | 2023-11-01 15:19 | HPS.HSE ---
Addendum entered and electronically signed by Edi Garcia MD 11/01/23 16:05:
I saw and examined the patient.
The FACING BASTER's note was reviewed and I agree with the note.
Comment:
72-year-old male with extensive past medical history who is presenting from home with chest tightness. Chest tightness resolved prior to coming to the hospital. States of chronic shortness of breath. Denies left-sided substernal or right-sided
subsequent chest pain. Denies any chest pressure with exertion. Did receive regular scheduled hemodialysis yesterday. Denies any fevers or chills at home. Recently admitted to the hospital and had prolonged hospitalization. Multiple
hospitalization recently. Is due to see his primary [facility] cardiovascular service line Dr. Morales next week for preop restratification for AV graft/fistula management.
Gen: NAD, Watching tv, comfortable.
HEENT- [facility] HD catheter noted and port R chest wall
cards s1 s2
pulm dec bs left >R
abd non distended,
ext no edema
neuro aox3, non focal grossly intact
psych-calm
Impression
Shortness of breath likely secondary pleural effusion suspected volume overload
Recurrent pleural effusions
Chest pressure likely secondary to pleural effusion volume overload rule out ACS
CAD status post stents x 4
Atrial fibrillation not on anticoagulation
ESRD on hemodialysis
Anemia of chronic disease
Chronic HFrEF
Hypertension
Multiple myeloma and cardiac amyloidosis
Hyperlipidemia
Plan
Interventional radiology for thoracentesis. Studies ordered
Nephrology for dialysis
Trend troponin
Check echocardiogram
Continue home meds
DVT Prophylaxis SCDs
I spent a total of 79 minutes with the patient or on the floor. More than 50% of this time involved counseling and coordination of care.
Original Note:
Family Physician
-
Family Physician: NOT KNOW UNKNOWN - PT DOES
Chief Complaint
-
Shortness of breath, VENTURA, chest tightness
History of Present Illness
72-year-old male complaining of shortness of breath/dyspnea on exertion she reports this was been ongoing for months but significantly worse today along with some chest tightness while walking out to his car. He reports the chest tightness only
occurred during his shortness of breath. He has history of chronic troponin elevations . He is on dialysis Sunday and completed full session yesterday 10/31/2023. He denies fever, chills, palpitations, cough, abdominal pain,
nausea vomit, diarrhea, urinary symptoms. He currently has a dialysis catheter left upper chest with plan in the next month for an AV fistula left arm.
The patient had a recent admission 10/16 - 10/18/2023 for fall after getting up to the bathroom causing a scalp hematoma her chest x-ray showed moderate left and small right pleural effusion she has had history of requiring thoracentesis but
thoracentesis was held at that time. She did receive hemodialysis in the ER
She is past medical history of end-stage renal disease on HD Sunday, started in July 2023, left tunneled catheter at [facility] unit, HTN, ASCVD/cardiac stent x 4,, chronic troponin elevation, chronic CHF reduced EF, A-fib,
multiple myeloma/amyloidosis, gout, anemia of chronic disease, recurrent left pleural effusion, chemo induced peripheral neuropathy, depression, retroperitoneal bleed on Eliquis, former smoker quit
Medical History
Past Medical History
Past Medical History: Reports Other
Additional Past Medical History:
ASCVD
Hypertension
Chronic HFrEF
Paroxysmal Atrial Fibrillation
ESRD on HD
Multiple Myeloma / Amyloidosis
Gout
Anemia of Chronic Disease
Recurrent Left Pleural Effusion
Chemo-Induced Peripheral Neuropathy
Depression
Retroperitoneal Bleeding on Eliquis
Past Surgical History: Reports Other
Additional Past Surgical History:
Left IJ HD Catheter
R ACW Port
PTCA with Stent (x 4)
Bilateral TKA
Hernia Repair
Right Rotator Cuff Repair (x 2)
History thoracentesis x 2
Social History
Tobacco: Former Smoker (Quit smoking in the 1990s. Approx 20 pack years total use.)
Alcohol: Occasional (Very rare.)
Drug: None
Personal:
Living: Alone
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
Family History
Family History: Not pertinent
Allergies / Home Medications
Allergies reflects when Allergies were last updated in [facility].
Home Medications with original date entered in [facility]
Allergy/Medication List:
Allergies
Allergy/AdvReac Type Severity Reaction Status Date / Time
atorvastatin Allergy MUSCLE Verified 10/16/23 23:36
CRAMPS
Cephalosporins Allergy kidney Verified 10/16/23 23:36
disease
coconut Allergy vomits Verified 10/16/23 23:36
penicillin V Allergy Vomiting Verified 10/16/23 23:36
pregabalin [From Lyrica] Allergy Tongue Verified 10/16/23 23:36
Swelling
simvastatin Allergy muscle Verified 10/16/23 23:36
cramps
Home Medications
lamotrigine 100 mg tablet 100 mg PO BID Neurological Condition 07/24/19
ezetimibe 10 mg tablet 10 mg PO HS High cholesterol 08/26/19
rosuvastatin 10 mg tablet 10 mg PO DAILY High cholesterol 08/26/19
aspirin 81 mg tablet,delayed release 81 mg PO DAILY Blood clot prevention/tx 08/27/19
allopurinol 100 mg tablet 100 mg PO DAILY Gout 06/15/20
gabapentin 100 mg capsule (Neurontin) 100 mg PO TID Pain 09/26/21
montelukast 10 mg tablet (Singulair) 10 mg PO UD bone pain prevention 09/26/21
acyclovir 400 mg tablet 400 mg PO BID Infection 01/03/23
dexamethasone 4 mg tablet 4 mg PO UD Anti-Inflammatory 01/03/23
daratumumab 20 mg/mL intravenous solution (Darzalex) 1,800 mg IV QMONTH Cancer 04/20/23
venetoclax 100 mg tablet (Venclexta) 200 mg PO DAILY Cancer 04/20/23
risperidone 0.25 mg tablet 0.25 mg PO HS Mental Health/Anxiety 08/06/23
amiodarone 100 mg tablet (Pacerone) 100 mg PO SuTuThSa@0800 #30 tabs 08/21/23
hydralazine 10 mg tablet 10 mg PO TID #90 tabs 08/21/23
isosorbide mononitrate 30 mg tablet,extended release 24 hr 30 mg PO DAILY HEART CONDITION #0 tabs 08/21/23
Review of Systems
-
History Source: Patient
A 12 point ROS was completed and negative except as noted: Yes
Constitutional: Denies Fever, Fatigue or Chills
EENT: Denies Sore Throat or Runny Nose
Respiratory: Reports Trouble Breathing (VENTURA); Denies Cough
Cardiac: Reports Chest Pain (With activity); Denies Diaphoresis, Palpitations or Syncope
Abdomen/GI: Denies Abdominal Pain, Nausea, Vomiting, Diarrhea, Constipated, Bloody Stools or Black Stools
: Denies Dysuria, Frequency, Flank Pain or Incontinence
Musculoskeletal: Denies Joint Pain or Edema
Skin: Reports Other (Dialysis catheter present left upper chest wall, port present right upper chest wall); Denies Itching or Rash
Neurological: Denies Dizzy or Headache
Endocrine: Reports No Symptoms
Hematologic/Lymphatic: Reports No Symptoms
Psych: Reports Calm
Physical Exam
Vital Signs
Vital Signs
Temp Pulse Resp BP Pulse Ox
98.1 F 68 9 111/64 97
11/01/23 12:10 11/01/23 14:06 11/01/23 14:06 11/01/23 14:05 11/01/23 14:06
Physical Exam
Cardiac: S1/S2 and Regular Rhythm; No Murmur, Rub, Gallop or Peripheral Edema
Skin: Other (Dialysis catheter present left upper chest wall, port present right upper chest wall)
Laboratory Results
-
11/01/23 13:22
11/01/23 13:22
Laboratory Results
Troponin I 0.118 ng/ml H* 11/01/23 13:22
Impression/Plan
-
Impression/plan:
Admit to telemetry
#Recurrent Left Pleural Effusion
She had recent moderate left and small right pleural effusion 10/17/2023 managed with dialysis
- s/p prior thoracentesis this year (March).
- Likely due to hypervolemia / CHF +/- myeloma.
-Consult IR for thoracentesis with fluid cytology
#Chest pain with shortness of breath/chronic troponin elevations
#ASCVD
#Cardiac stents x 4
# Chronic troponin elevations
- Stable. No complaints of chest pain, dyspnea, etc.
- EKG has not been done and will obtain this now.
- Troponin elevation noted 0.118 - not significantly changed from multiple prior values.
-Will trend troponin
-Continue Imdur 30 mg daily
-Repeat 2D echo
2D echo 04/23/2023: EF 46%, moderate LVH, mild reduced LVSF. Right ventricular hypertrophy history of CHF, amyloid
EKG: A-fib 76 bpm, left anterior fascicular block, prolonged QT 501 MS no significant change from October 17, 2023
#ESRD on HD
- Initiated on HD during prior admission July 2023 following L renal hemorrhage / retroperitoneal bleed
- Nephrology consult for HD needs (next session due today - MW).
-Follow BMP
#Anemia of chronic disease
Hgb 10�appears stable
-Follow CBC
#L Scalp Hematoma resolved from fall 10/17/2023
-Had negative CT head her Eliquis was stopped in July
#Chronic HFrEF
I/O, daily weights
- BNP elevated same as recent admission requiring her HD
- Volume management on HD
.
#Paroxysmal Atrial Fibrillation
- Continue amiodarone 100 mg daily
- No longer on OAC following significant retroperitoneal bleeding on Eliquis event from July 2023
#Benign Hypertension
BP 111/64
-Continue Imdur 30 mg daily, hydralazine 10 mg 3 times daily with hold parameters
#Multiple Myeloma / Cardiac Amyloidosis
#chemo induced peripheral neuropathy
- Continue venetoclax.
- Receives Darzalex monthly.
-On chronic acyclovir
--Continue gabapentin
#HLD
Continue Crestor 10 mg daily
#Anxiety
Continue risperidone 0.25 mg at bedtime, Lamictal
Other PMH:
retroperitoneal bleed on Eliquis was stopped in July 2023
former smoker quit
DVT Prophylaxis: SCDs
Code Status: Full
--- NOTE | 2023-11-01 15:50 | W.CON.NEPH ---
Consultation
-
Date/Time Consultation Requested: 11/01/2023 3:45 PM
Date/Time Consultation Performed: 11/01/2023 3:45 PM
Requesting Provider: Dr. Connors
Performing Provider: Dr. Monae
Reason for Consultation: End-stage renal disease
Medical History
-
Chief Complaint: fall
History of Present Illness:
72y M with PMH significant for ESRD on HD recently started in July 2023 after having RPB, left CW tunneled catheter at [facility] on MWF, HTN on low dose hydralazine, ASCVD on ASA, imdur, CHF and A-Fib on Amiodarone who presents to ED
complaining of chest tightness and shortness of breath .He reports the chest tightness only occurred during his shortness of breath. He has history of chronic troponin elevations . He is on dialysis Sunday and completed full
session yesterday 10/31/2023. He denies fever, chills, palpitations, cough, abdominal pain, nausea vomit, diarrhea, urinary symptoms. He currently has a dialysis catheter left upper chest with plan in the next month for an AV fistula left arm. He
does have a history of recurrent pleural effusion requiring thoracentesis. He presented today with noted increased left pleural effusion requiring thoracentesis. Nephrology was consulted for end-stage renal disease
Past Medical History
ASCVD
Hypertension
Chronic HFrEF
Paroxysmal Atrial Fibrillation
ESRD on HD MWF left CVC
Multiple Myeloma / Amyloidosis
Gout
Anemia of Chronic Disease
Recurrent Left Pleural Effusion
Chemo-Induced Peripheral Neuropathy
Depression
Retroperitoneal Bleeding on Eliquis
Past Surgical History: Other (Left IJ HD Catheter R ACW Port PTCA with Stent (x 4) Bilateral TKA Hernia Repair Right Rotator Cuff Repair (x 2))
Social History
Tobacco: Former Smoker (quit in )
Alcohol: Occasional
Drug: None
Family History
Family History: Not Pertinent
Allergies / Home Medications
Allergy/AdvReac Type Severity Reaction Status Date / Time
atorvastatin Allergy MUSCLE Verified 10/16/23 23:36
CRAMPS
Cephalosporins Allergy kidney Verified 10/16/23 23:36
disease
coconut Allergy vomits Verified 10/16/23 23:36
penicillin V Allergy Vomiting Verified 10/16/23 23:36
pregabalin [From Lyrica] Allergy Tongue Verified 10/16/23 23:36
Swelling
simvastatin Allergy muscle Verified 10/16/23 23:36
cramps
�Medication �Instructions �Recorded �Confirmed �Type
lamotrigine 100 mg tablet 100 mg PO BID Neurological 07/24/19 11/01/23 History
Condition
ezetimibe 10 mg tablet 10 mg PO HS High cholesterol 08/26/19 11/01/23 History
rosuvastatin 10 mg tablet 10 mg PO DAILY High cholesterol 08/26/19 11/01/23 History
aspirin 81 mg tablet,delayed 81 mg PO DAILY Blood clot 08/27/19 11/01/23 History
release prevention/tx
allopurinol 100 mg tablet 100 mg PO DAILY Gout 06/15/20 11/01/23 History
gabapentin 100 mg capsule 100 mg PO TID Pain 09/26/21 11/01/23 History
(Neurontin)
montelukast 10 mg tablet 10 mg PO UD bone pain prevention 09/26/21 11/01/23 History
(Singulair)
acyclovir 400 mg tablet 400 mg PO BID Infection 01/03/23 11/01/23 History
dexamethasone 4 mg tablet 4 mg PO UD Anti-Inflammatory 01/03/23 11/01/23 History
daratumumab 20 mg/mL intravenous 1,800 mg IV QMONTH Cancer 04/20/23 11/01/23 History
solution (Darzalex)
venetoclax 100 mg tablet 200 mg PO DAILY Cancer 04/20/23 11/01/23 History
(Venclexta)
risperidone 0.25 mg tablet 0.25 mg PO HS Mental Health/Anxiety 08/06/23 11/01/23 History
amiodarone 100 mg tablet (Pacerone) 100 mg PO SuTuThSa@0800 #30 tabs 08/21/23 11/01/23 Rx
hydralazine 10 mg tablet 10 mg PO TID #90 tabs 08/21/23 11/01/23 Rx
isosorbide mononitrate 30 mg 30 mg PO DAILY HEART CONDITION #0 08/21/23 11/01/23 Rx
tablet,extended release 24 hr tabs
Review of Systems
-
History Source: Patient
All other systems: Negative unless noted
Respiratory: Trouble Breathing
Cardiac: Other (some Exertional chest tightness)
Musculoskeletal: Other (Vascular: Left tunneled HD cath, right anterior chest wall Mediport)
Physical Exam
Vital Signs
Vital Signs
Temp Pulse Resp BP Pulse Ox
98.1 F 68 9 111/64 97
11/01/23 12:10 11/01/23 14:06 11/01/23 14:06 11/01/23 14:05 11/01/23 14:06
Lab Results
11/01/23 13:22
11/01/23 13:22
WBC 3.3 10^3/uL (4.8-10.8) L 11/01/23 13:22
RBC 3.49 10^6/uL (4.70-6.10) L 11/01/23 13:22
Hgb 10.0 g/dL (13.0-18.0) L 11/01/23 13:22
Hct 31.0 % (39.0-52.0) L 11/01/23 13:22
Plt Count 238 10^3/uL (130-400) 11/01/23 13:22
Sodium 131 mmol/L (135-145) L 11/01/23 13:22
Potassium 4.0 mmol/L (3.5-5.1) 11/01/23 13:22
Chloride 99 mmol/L (98-107) 11/01/23 13:22
Carbon Dioxide 28 mmol/L (22-30) 11/01/23 13:22
BUN 21 mg/dl (9-20) H 11/01/23 13:22
Creatinine 2.0 mg/dL (0.7-1.3) H 11/01/23 13:22
eGFR 34.59 11/01/23 13:22
Glucose 134 mg/dl (70-99) H 11/01/23 13:22
Calcium 8.1 mg/dl (8.4-10.2) L 11/01/23 13:22
Hmc-V-Xsphtgeapuq Pept > 58533 pg/ml 11/01/23 13:22
Physical Exam
General: AOx3, Nontoxic , NAD
HEENT: PERRL, EOMI, Anicteric, Conjunctivae Clear, Ear/Nose Intact, Hearing Normal, Oropharynx Clear/Moist, Dentition Intact, Facial Symmetry, Neck Supple, Neck: Trachea Midline, No JVD and No Thyromegaly, no Bruits
Respiratory: Clear to auscultation bilaterally with normal lung excursion decreased breath sounds to bases left greater then right
Cardiac: S1/S2 and Regular Rate/Rhythm
Breast: Deferred by me
Abdomen: Soft, Nontender, Nondistended, Normal Bowel Sounds and No Hepatosplenomegaly
Rectal: Deferred by Provider
Genito-urinary: No Costovertebral Tenderness
Extremities: No Clubbing, No Cyanosis and No Edema
Skin: No Rash or open lesions
Neuro: Nonfocal/Grossly Intact, CN II-XII (Intact) and Strength (Musculoskeletal exam 5 out of 5 both upper and lower extremities)
Hematologic/Lymphatic: No Cervical Lymphadenopathy, No Submandibular Lymphadenopathy and No Supraclavicular Lymphadenopathy
Psych: Mood/afflect pleasant, Insight/judgement good and Appropriate
Vascular: plus 1 pedal and radial pulses, tunneled left IJ catheter right anterior chest wall Mediport
Vascular Access: CVC (left)
Data Reviewed
-
Radiology: Image Personally Visualized and interpreted (Chest x-ray on admission reviewed: Left pleural effusion left-sided IJ HD catheter)
Medical Tests (Nuc Med, Echo etc): Other (EKG report reviewed atrial fibrillation with left anterior fascicular block 76 bpm)
Labs: Labs Reviewed by me (BMP CBC)
Old Records: Reviewed (Reviewed ESRD consult from 10/17/2023 in EMR)
Assessment/Plan
-
Impression:
End-stage renal disease Sunday [facility] unit
Hypertension
Recurrent left pleural effusion with symptomatic shortness of breath on presentation
Anemia
Coronary artery disease with multiple stent
Atrial fibrillation
Left IJ tunneled hemodialysis cath
History of AL amyloidosis/multiple myeloma
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
Plan:
HD tomorrow, no acute requirement for dialysis today
HD Orders provided
1500 cc/day fluid restriction and appropriate low-sodium low potassium diet
HEMANTH therapy to be directed for anemia
Maintain current oral antihypertensives for blood pressure control in setting of hypertension
[2023-11-01] MEDS: NEURONTIN 100 MG PO ×2 (17:39→22:27)
[2023-11-01] MEDS: APRESOLINE 10 MG PO ×2 (17:39→22:27)
[2023-11-01 20:34] LABS: Troponin I 0.121 ng/ml
[2023-11-01] MEDS: LAMICTAL 100 MG PO (20:35)
[2023-11-01] MEDS: ZOVIRAX 200 MG PO (20:35)
--- NOTE | 2023-11-01 22:15 | PTCARENOTE ---
Addendum entered by Cj Cespedes RN 11/02/23 03:28:
Repeat troponin at 0100 was 0.123. Pt remains asymptomatic. Devin Dukes notified of troponin result; next troponin level to be drawn at 0700 this AM.
Original Note:
Pt's troponin at 2000 was 0.121. Pt denies chest pain or other symptoms at this time. No other troponin levels ordered. Devin Dukes notified, orders placed for troponin to be drawn at 0100, 0700 and 1300 tomorrow 11/01.
[2023-11-01] MEDS: RISPERDAL 0.25 MG PO (22:27)
[2023-11-01] MEDS: ZETIA 10 MG PO (22:27)
[2023-11-02] VITALS (8 sets, daily range): BP systolic 60–150; BP diastolic 67–79; BMI 23.7
[2023-11-02 02:03] LABS: Troponin I 0.123 ng/ml
[2023-11-02 06:46] LABS: % Basophils 0.3 % (0-2); % Immature Granulocytes 0.3 % (0-0.5); % Lymphocytes 10.8 % (20.5-51.1); % Monocytes 13.4 % (1.7-9.3); % Neutrophils 75.2 % (42.2-75.2); Absolute Lymphocytes 0.4 10^3/uL (1.2-3.4); Absolute Monocytes 0.5 10^3/uL (0.1-0.6); Absolute Neutrophils 2.8 10^3/uL (1.4-6.5); Hematocrit 30.7 % (39.0-52.0); Hemoglobin 9.8 g/dL (13.0-18.0); Mean Corp Hgb Conc. 31.9 g/dL (33.0-37.0); Mean Corpuscular Hgb 28.7 pg (27.0-31.0); Mean Corpuscular Volume 89.8 fL (80.0-94.0); Mean Platelet Volume 10.3 fL (7.4-10.4); Nucleated Red Blood Cells % 0 % (-); Platelet Count 219 10^3/uL (130-400); Red Blood Cell Count 3.42 10^6/uL (4.70-6.10); Red Cell Dist. Width 15.7 % (11.5-14.5); White Blood Cell Count 3.7 10^3/uL (4.8-10.8)
[2023-11-02 07:07] LABS: Troponin I 0.123 ng/ml
[2023-11-02 07:07] LABS: ALT (SGPT) < 10 U/L (0-50); AST (SGOT) 22 U/L (17-59); Albumin 2.5 g/dl (3.5-5.0); Alkaline Phosphatase 127 U/L (38-126); Blood Urea Nitrogen 27 mg/dl (9-20); Calcium 8.1 mg/dl (8.4-10.2); Carbon Dioxide 30 mmol/L (22-30); Chloride 97 mmol/L (98-107); Estimated Creatinine Clearance 29 ml/min; Glucose 94 mg/dl (70-99); Magnesium 1.9 mg/dl (1.6-2.3); Phosphorus 3.4 mg/dl (2.5-4.5); Potassium 4.1 mmol/L (3.5-5.1); Sodium 130 mmol/L (135-145); Total Bilirubin 0.6 mg/dl (0.2-1.3); Total Protein 4.5 g/dl (6.3-8.2); eGFR 27.79
[2023-11-02] MEDS: RETACRIT 4000 UNITS IV (09:36)
--- NOTE | 2023-11-02 10:30 | W.PN.NEPH.HD ---
Assessment
-
pt seen during HD
vitals are stable
CVC functions well
plan to have thoracentesis today
Progress Note - Hemodialysis
-
Date of Service: November 02, 2023
Duration: 30 minutes and 3 hours
Potassium Bath: 3
Calcium Bath: 2.5
Opti-Dialyzer: 160
Ultrafiltration: Other (1-2kg)
Blood Flow: 400
Dialysate Flow: 600
Heparin: no
EPO: 4000
[2023-11-02] MEDS: HEPARIN 4400 UNITS INTRACATH (11:37)
--- NOTE | 2023-11-02 11:43 | W.PN.HOSP.TC ---
Today's Communication/Plan
-
HD today
IRAD for Thora
ECHO
Monitor symptoms with activity
Assessment / Plan
Assessment / Plan
#Recurrent Left Pleural Effusion
- Likely due to hypervolemia / CHF +/- myeloma.
-Consult IR for thoracentesis with fluid cytology
#Chest pressure with shortness of breath/chronic troponin elevations
#ASCVD
#Cardiac stents x 4
# Elevated troponin likely 2/2 non ischemic myocardia injury (setting of volume overload, ESRD with decrease clearance) Chronic troponin elevations
- Stable. No complaints of chest pain, dyspnea, etc.
- EKG noted. similar compared to 10/16
- Will trend troponin till plateau or downtrend noted
- Continue Imdur 30 mg daily
- Check 2D echo
#ESRD on HD
- Initiated on HD during prior admission July 2023 following L renal hemorrhage / retroperitoneal bleed
- Nephrology consult for HD needs (next session due today - MWF).
- Follow BMP
#Anemia of chronic disease
-Follow CBC. Epo and IV iron per nephro
#Chronic HFrEF
I/O, daily weights
- BNP elevated same as recent admission requiring her HD
- Volume management on HD
#Paroxysmal Atrial Fibrillation
- Continue amiodarone 100 mg daily
- No longer on OAC following significant retroperitoneal bleeding on Eliquis event from July 2023
#Benign Hypertension
-Continue Imdur 30 mg daily, hydralazine 10 mg 3 times daily with hold parameters
#Multiple Myeloma / Cardiac Amyloidosis
#chemo induced peripheral neuropathy
- Continue venetoclax.
- Receives Darzalex monthly.
-On chronic acyclovir
--Continue gabapentin
#HLD
Continue Crestor 10 mg daily
#Anxiety
Continue risperidone 0.25 mg at bedtime, Lamictal
Other PMH:
retroperitoneal bleed on Eliquis was stopped in July 2023
former smoker quit
DVT Prophylaxis: SCDs
Code Status: Full
Anticipated Discharge: > 48 hours
Subjective/Interval History
-
Date of Service: November 02, 2023
no further cp/pressure
seen on HD
looks comfortable
Objective Data
-
Labs:
Laboratory Results
11/02/23 11/02/23
06:10 06:11
WBC 3.7 L
Hgb 9.8 L
Hct 30.7 L
Plt Count 219
Sodium 130 L
Potassium 4.1
Chloride 97 L
Carbon Dioxide 30
BUN 27 H
Creatinine 2.4 H
Glucose 94
Calcium 8.1 L
Total Bilirubin 0.6
AST 22
ALT < 10
Alkaline Phosphatase 127 H
Vital Signs:
Vital Signs
Temp Pulse Resp BP Pulse Ox
97.4 F 69 18 132/75 98
11/02/23 07:45 11/02/23 07:45 11/02/23 07:45 11/02/23 07:45 11/02/23 07:45
I&O
11/01/23 11/02/23 11/03/23
06:59 06:59 06:59
Intake Total 600 / 600
Balance 600 / 600
Physical Exam
-
General: Well Developed and No Apparent Distress
HEENT: Normocephalic, Atraumatic, Moist Mucous Membranes and Other ([facility] HD catheter noted and port R chest wall )
Respiratory: Decreased Breath Sounds
Cardiac: Regular Rhythm and S1/S2; Negative Murmur, Rub or Gallop
GI: Soft, Nontender, Nondistended and Normal Bowel Sounds; Negative Organomegaly
Rectal: Deferred by Provider
Musculoskeletal: No Clubbing, No Cyanosis and No Edema
Skin: Negative Rash
Neuro: Awake, No Motor Deficits and Nonfocal/Grossly Intact
Data Reviewed
-
Total Time Spent with Patient (in minutes): 56
[2023-11-02] MEDS: ZYLOPRIM 100 MG PO (12:14)
[2023-11-02] MEDS: ASPIR LOW (ENTERIC COATED) 81 MG PO (12:14)
[2023-11-02] MEDS: ZOVIRAX 200 MG PO ×2 (12:14→20:15)
[2023-11-02] MEDS: NEURONTIN 100 MG PO ×3 (12:15→21:43)
[2023-11-02] MEDS: IMDUR (EXTENDED RELEASE) 30 MG PO (12:15)
[2023-11-02] MEDS: CRESTOR 10 MG PO (12:15)
[2023-11-02] MEDS: LAMICTAL 100 MG PO ×2 (12:15→20:15)
[2023-11-02] MEDS: APRESOLINE 10 MG PO ×3 (12:15→21:43)
--- NOTE | 2023-11-02 14:00 | CM ---
senior research manager reviewed patient's chart and met with patient and patient lives alone in one story home with 2 steps to enter, patient is independent with adl's and uses a cane with ambulation. Patient is current with [facility] in [place]
[phone], . senior research manager has faxed clinicals as requested by Rashmi at [facility] in [place].
PCP: Dr. Villa
Pharmacy: [facility]
Plan; Home and follow up with outpatient dialysis at [facility] in [place]
Phone; [phone]
Fax; [phone]
[2023-11-02 14:05] LABS: Troponin I 0.112 ng/ml
[2023-11-02 15:23] LABS: Body Fluid pH 7.56
[2023-11-02 15:39] LABS: Body Fluid Amylase < 30 U/L; Body Fluid Glucose 102 mg/dl; Body Fluid LDH 99 U/L; Body Fluid Protein < 2.0 g/dl; Body Fluid Triglycerides < 30 mg/dl
[2023-11-02 16:09] LABS: Body Fluid Mononuclear 96.7 %; Body Fluid Polymorphonuclear 3.3 %; Body Fluid WBC 92 /CUMM
[2023-11-02 16:22] LABS: Body Fluid Second Tech DW
[2023-11-02] MEDS: RISPERDAL 0.25 MG PO (21:43)
[2023-11-02] MEDS: ZETIA 10 MG PO (21:43)
[2023-11-02] MEDS: TYLENOL 650 MG PO (23:00)
[2023-11-03] VITALS (9 sets, daily range): BP systolic 98–154; BP diastolic 60–93; PULSE 67–73; O2SAT 97; BMI 22.7
[2023-11-03] MEDS: ROBITUSSIN 200 MG PO (01:30)
[2023-11-03 06:02] LABS: % Basophils 0.6 % (0-2); % Immature Granulocytes 0.3 % (0-0.5); % Lymphocytes 14.9 % (20.5-51.1); % Monocytes 15.9 % (1.7-9.3); % Neutrophils 68.3 % (42.2-75.2); Absolute Lymphocytes 0.5 10^3/uL (1.2-3.4); Absolute Monocytes 0.5 10^3/uL (0.1-0.6); Absolute Neutrophils 2.2 10^3/uL (1.4-6.5); Hematocrit 30.8 % (39.0-52.0); Hemoglobin 9.8 g/dL (13.0-18.0); Mean Corp Hgb Conc. 31.8 g/dL (33.0-37.0); Mean Corpuscular Hgb 28.6 pg (27.0-31.0); Mean Corpuscular Volume 89.8 fL (80.0-94.0); Mean Platelet Volume 10.6 fL (7.4-10.4); Nucleated Red Blood Cells % 0 % (-); Platelet Count 200 10^3/uL (130-400); Red Blood Cell Count 3.43 10^6/uL (4.70-6.10); Red Cell Dist. Width 15.9 % (11.5-14.5); White Blood Cell Count 3.2 10^3/uL (4.8-10.8)
[2023-11-03 06:23] LABS: ALT (SGPT) < 10 U/L (0-50); AST (SGOT) 23 U/L (17-59); Albumin 2.7 g/dl (3.5-5.0); Alkaline Phosphatase 124 U/L (38-126); Blood Urea Nitrogen 19 mg/dl (9-20); Calcium 7.9 mg/dl (8.4-10.2); Carbon Dioxide 31 mmol/L (22-30); Chloride 99 mmol/L (98-107); Estimated Creatinine Clearance 34 ml/min; Glucose 82 mg/dl (70-99); Potassium 3.7 mmol/L (3.5-5.1); Sodium 133 mmol/L (135-145); Total Bilirubin 0.7 mg/dl (0.2-1.3); Total Protein 4.9 g/dl (6.3-8.2); eGFR 34.59
[2023-11-03] MEDS: ASPIR LOW (ENTERIC COATED) 81 MG PO (08:18)
[2023-11-03] MEDS: IMDUR (EXTENDED RELEASE) 30 MG PO (08:18)
[2023-11-03] MEDS: CRESTOR 10 MG PO (08:18)
[2023-11-03] MEDS: ZOVIRAX 200 MG PO ×2 (08:19→21:12)
[2023-11-03] MEDS: NEURONTIN 100 MG PO ×3 (08:19→21:11)
[2023-11-03] MEDS: APRESOLINE 10 MG PO ×3 (08:19→21:12)
[2023-11-03] MEDS: ZYLOPRIM 100 MG PO (08:20)
[2023-11-03] MEDS: LAMICTAL 100 MG PO ×2 (08:20→21:12)
[2023-11-03] MEDS: PACERONE 100 MG PO (08:24)
--- NOTE | 2023-11-03 12:20 | W.PN.HOSP.TC ---
Today's Communication/Plan
-
Monitor symptomology with exertion and with PT
Check CT chest
Assessment / Plan
Assessment / Plan
#Recurrent Left Pleural Effusion
-Likely due to hypervolemia / CHF +/- myeloma.
-Transudative in nature. Status post 1100 cc removed. Preliminary Gram stain negative for growth.
-Multiple episode of pleural effusion and underwent thoracentesis. Check CT chest without contrast to assess for loculation or any other pathology.
#Chest pressure with shortness of breath/chronic troponin elevations
#ASCVD
#Cardiac stents x 4
# Elevated troponin likely 2/2 non ischemic myocardia injury (setting of volume overload, ESRD with decrease clearance) Chronic troponin elevations
- Stable. No complaints of chest pain, dyspnea, etc.
- EKG noted. similar compared to 10/16
- Will trend troponin till plateau or downtrend noted
- Continue Imdur 30 mg daily
-Echo with EF of 45 to 50%. Mild hypokinesis. Moderate to severe concentric LVH. Normal right ventricular size and function. Estimated PASP 24 mmHg. Compared to prior echo from April 23, 2023 no significant change.
#ESRD on HD
- Initiated on HD during prior admission July 2023 following L renal hemorrhage / retroperitoneal bleed
- Status post HD yesterday.
- Follow BMP
#Anemia of chronic disease
-Follow CBC. Epo and IV iron per nephro
#Chronic HFrEF
I/O, daily weights
- BNP elevated same as recent admission requiring her HD
- Volume management on HD
#Paroxysmal Atrial Fibrillation
- Continue amiodarone 100 mg daily
- No longer on OAC following significant retroperitoneal bleeding on Eliquis event from July 2023
#Benign Hypertension
-Continue Imdur 30 mg daily, hydralazine 10 mg 3 times daily with hold parameters
#Multiple Myeloma / Cardiac Amyloidosis
#chemo induced peripheral neuropathy
- Continue venetoclax.
- Receives Darzalex monthly.
-On chronic acyclovir
--Continue gabapentin
#HLD
Continue Crestor 10 mg daily
#Anxiety
Continue risperidone 0.25 mg at bedtime, Lamictal
Other PMH:
retroperitoneal bleed on Eliquis was stopped in July 2023
former smoker quit
DVT Prophylaxis: SCDs
Code Status: Full
PT eval
Anticipated Discharge: 24 - 48 hours
Subjective/Interval History
-
Date of Service: November 03, 2023
denies any chest pain or pressure
on room air
feeling better after thoracentesis
Objective Data
-
Labs:
Laboratory Results
11/03/23
05:50
WBC 3.2 L
Hgb 9.8 L
Hct 30.8 L
Plt Count 200
Sodium 133 L
Potassium 3.7
Chloride 99
Carbon Dioxide 31 H
BUN 19
Creatinine 2.0 H
Glucose 82
Calcium 7.9 L
Total Bilirubin 0.7
AST 23
ALT < 10
Alkaline Phosphatase 124
Vital Signs:
Vital Signs
Temp Pulse Resp BP Pulse Ox
98.1 F 73 20 106/60 98
11/03/23 11:00 11/03/23 11:00 11/03/23 11:00 11/03/23 11:00 11/03/23 11:00
I&O
11/02/23 11/03/23 11/04/23
06:59 06:59 06:59
Intake Total 600 / 600 840 / 840
Balance 600 / 600 840 / 840
--- NOTE | 2023-11-03 13:46 | W.PN.NEPH.PH ---
Today's Communication / Plan
-
HD on Sunday
Assessment/Plan
-
Impression:
End-stage renal disease Sunday [facility]
Hypertension
Recurrent left pleural effusion with symptomatic shortness of breath on presentation
Anemia
Coronary artery disease with multiple stent
Atrial fibrillation
Left IJ tunneled hemodialysis cath
History of AL amyloidosis/multiple myeloma
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
Plan:
s/p thoracentesis with improvement of SOB
for CT chest today
HD next on Sunday
maitain FR 1200cc/day
HEMANTH therapy to be directed for anemia
BP are soft, monitor
Total Time Spent with Patient (in minutes): HD on Sunday
-
-
Date of Service: November 03, 2023
CC / HPI / ROS
-
Chief Complaint:
ESRD
History of Present Illness:
completed HD on 11/01 and had left thoracentesis of 1.1lit
no fever, wt decreased
Review of Systems:
sob improved. no cp
no n/v
Labs
-
Labs:
WBC 3.2 10^3/uL (4.8-10.8) L 11/03/23 05:50
RBC 3.43 10^6/uL (4.70-6.10) L 11/03/23 05:50
Hgb 9.8 g/dL (13.0-18.0) L 11/03/23 05:50
Hct 30.8 % (39.0-52.0) L 11/03/23 05:50
Plt Count 200 10^3/uL (130-400) 11/03/23 05:50
Sodium 133 mmol/L (135-145) L 11/03/23 05:50
Potassium 3.7 mmol/L (3.5-5.1) 11/03/23 05:50
Chloride 99 mmol/L (98-107) 11/03/23 05:50
Carbon Dioxide 31 mmol/L (22-30) H 11/03/23 05:50
BUN 19 mg/dl (9-20) 11/03/23 05:50
Creatinine 2.0 mg/dL (0.7-1.3) H 11/03/23 05:50
eGFR 34.59 11/03/23 05:50
Glucose 82 mg/dl (70-99) 11/03/23 05:50
Calcium 7.9 mg/dl (8.4-10.2) L 11/03/23 05:50
Phosphorus 3.4 mg/dl (2.5-4.5) 11/02/23 06:10
Qgu-X-Krepyimmjct Pept > 47684 pg/ml 11/01/23 13:22
Albumin 2.7 g/dl (3.5-5.0) L 11/03/23 05:50
Physical Exam
-
Vital Signs:
Vital Signs
Temp Pulse Resp BP Pulse Ox
98.1 F 73 20 106/60 98
11/03/23 11:00 11/03/23 11:00 11/03/23 11:00 11/03/23 11:00 11/03/23 11:00
Cardiovascular:: Regular rate and rhythm
Lung Excursion:: Normal (decreased)
Abdomen:: Nontender and Soft
Extremity Edema:: None: Bilateral:
Viera Catheter: No
[2023-11-03] MEDS: RISPERDAL 0.25 MG PO (21:12)
[2023-11-03] MEDS: ZETIA 10 MG PO (21:12)
[2023-11-04 03:03] VITALS: BP 135/84
[2023-11-04 04:15] LABS: % Basophils 0.7 % (0-2); % Immature Granulocytes 0.3 % (0-0.5); % Lymphocytes 14.5 % (20.5-51.1); % Monocytes 15.2 % (1.7-9.3); % Neutrophils 69.3 % (42.2-75.2); Absolute Lymphocytes 0.4 10^3/uL (1.2-3.4); Absolute Monocytes 0.5 10^3/uL (0.1-0.6); Absolute Neutrophils 2.1 10^3/uL (1.4-6.5); Hematocrit 28.7 % (39.0-52.0); Hemoglobin 9.3 g/dL (13.0-18.0); Mean Corp Hgb Conc. 32.4 g/dL (33.0-37.0); Mean Corpuscular Volume 89.4 fL (80.0-94.0); Mean Platelet Volume 9.4 fL (7.4-10.4); Nucleated Red Blood Cells % 0 % (-); Platelet Count 159 10^3/uL (130-400); Red Blood Cell Count 3.21 10^6/uL (4.70-6.10); Red Cell Dist. Width 15.9 % (11.5-14.5)
[2023-11-04 05:15] LABS: ALT (SGPT) < 10 U/L (0-50); AST (SGOT) 20 U/L (17-59); Albumin 2.4 g/dl (3.5-5.0); Alkaline Phosphatase 107 U/L (38-126); Blood Urea Nitrogen 23 mg/dl (9-20); Calcium 7.4 mg/dl (8.4-10.2); Carbon Dioxide 26 mmol/L (22-30); Chloride 103 mmol/L (98-107); Estimated Creatinine Clearance 30 ml/min; Glucose 75 mg/dl (70-99); Potassium 3.6 mmol/L (3.5-5.1); Sodium 135 mmol/L (135-145); Total Bilirubin 0.5 mg/dl (0.2-1.3); Total Protein 4.1 g/dl (6.3-8.2); eGFR 29.25
[2023-11-04 05:44] VITALS: BMI 22.8
[2023-11-04 07:45] VITALS: BP 132/59
[2023-11-04] MEDS: APRESOLINE 10 MG PO ×3 (08:19→21:15)
[2023-11-04] MEDS: IMDUR (EXTENDED RELEASE) 30 MG PO (08:19)
[2023-11-04] MEDS: ZYLOPRIM 100 MG PO (08:19)
[2023-11-04] MEDS: CRESTOR 10 MG PO (08:19)
[2023-11-04] MEDS: ASPIR LOW (ENTERIC COATED) 81 MG PO (08:19)
[2023-11-04] MEDS: LAMICTAL 100 MG PO ×2 (08:20→21:15)
[2023-11-04] MEDS: ZOVIRAX 200 MG PO ×2 (08:20→21:15)
[2023-11-04] MEDS: PACERONE 100 MG PO (08:24)
[2023-11-04] MEDS: NEURONTIN 100 MG PO ×3 (08:24→21:15)
--- NOTE | 2023-11-04 10:49 | W.PN.HOSP.TC ---
Today's Communication/Plan
-
HD tomm
repeat CXR for trace PTX
monitor symptoms
Assessment / Plan
Assessment / Plan
#Recurrent Left Pleural Effusion
-Likely due to hypervolemia / CHF +/- myeloma.
-Transudative in nature. Status post 1100 cc removed. Preliminary Gram stain negative for growth.
-Multiple episode of pleural effusion and underwent thoracentesis.
-CT chest with Small bilateral pleural effusions with adjacent atelectasis within the in the right lower lobe. There is partial collapse of the right middle lobe. There is more confluent opacities within the left lower lobe and inferior left upper
lobe which may represent superimposed infectious process or pneumonitis. There is a trace left apical pneumothorax, likely postprocedural.
#Chest pressure with shortness of breath/chronic troponin elevations
#ASCVD
#Cardiac stents x 4
# Elevated troponin likely 2/2 non ischemic myocardia injury (setting of volume overload, ESRD with decrease clearance) Chronic troponin elevations
- Stable. No complaints of chest pain, dyspnea, etc.
- EKG noted. similar compared to 10/16
- Will trend troponin till plateau or downtrend noted
- Continue Imdur 30 mg daily
-Echo with EF of 45 to 50%. Mild hypokinesis. Moderate to severe concentric LVH. Normal right ventricular size and function. Estimated PASP 24 mmHg. Compared to prior echo from April 23, 2023 no significant change.
#ESRD on HD
- Initiated on HD during prior admission July 2023 following L renal hemorrhage / retroperitoneal bleed
- HD tomm morning. If feeling better post HD then can consider Dc.
- Follow BMP
#Anemia of chronic disease
-Follow CBC. Epo and IV iron per nephro
#Chronic HFrEF
I/O, daily weights
- Volume management on HD
- ECHo as above
#Paroxysmal Atrial Fibrillation
- Continue amiodarone 100 mg daily
- No longer on OAC following significant retroperitoneal bleeding on Eliquis event from July 2023
#Benign Hypertension
-Continue Imdur 30 mg daily, hydralazine 10 mg 3 times daily with hold parameters
#Multiple Myeloma / Cardiac Amyloidosis
#chemo induced peripheral neuropathy
- Continue venetoclax.
- Receives Darzalex monthly.
-On chronic acyclovir
--Continue gabapentin
#HLD
Continue Crestor 10 mg daily
#Anxiety
Continue risperidone 0.25 mg at bedtime, Lamictal
Other PMH:
retroperitoneal bleed on Eliquis was stopped in July 2023
former smoker quit
DVT Prophylaxis: SCDs
Code Status: Full
PT/OT-Home health
Anticipated Discharge: Within 24 hours
Subjective/Interval History
-
Date of Service: November 04, 2023
worked with PT yesterday without any chest pain or sob.
Objective Data
-
Labs:
Laboratory Results
11/04/23
03:53
WBC 3.0 L
Hgb 9.3 L
Hct 28.7 L
Plt Count 159 D
Sodium 135
Potassium 3.6
Chloride 103
Carbon Dioxide 26
BUN 23 H
Creatinine 2.3 H
Glucose 75
Calcium 7.4 L
Total Bilirubin 0.5
AST 20
ALT < 10
Alkaline Phosphatase 107
Vital Signs:
Vital Signs
Temp Pulse Resp BP Pulse Ox
98 F 69 20 132/59 97
11/04/23 07:45 11/04/23 08:19 11/04/23 07:45 11/04/23 08:24 11/04/23 07:45
I&O
11/03/23 11/04/23 11/05/23
06:59 06:59 06:59
Intake Total 840 / 840 1110 / 1110
Balance 840 / 840 1110 / 1110
[2023-11-04 11:11] VITALS: BP 131/70
[2023-11-04 15:13] VITALS: BP 140/73
--- NOTE | 2023-11-04 15:44 | W.PN.NEPH.PH ---
Today's Communication / Plan
-
HD tomorrow
Assessment/Plan
-
Impression:
End-stage renal disease Sunday [facility] unit
Hypertension
Recurrent left pleural effusion with symptomatic shortness of breath on presentation
Anemia
Coronary artery disease with multiple stent
Atrial fibrillation
Left IJ tunneled hemodialysis cath
History of AL amyloidosis/multiple myeloma
History of left inferior renal artery hemorrhage status post postembolization July 2023 resulting in ESRD\\
echo:
EF 45-50%, mod to severe LVH
Plan:
s/p thoracentesis 11/01 with improvement of SOB
no acute findings on CT chest
HD next on Sunday
maitain FR 1200cc/day
HEMANTH therapy to be directed for anemia
possible new EDW 74kg
-
-
Date of Service: November 04, 2023
CC / HPI / ROS
-
Chief Complaint:
ESRD
History of Present Illness:
completed HD on 11/01 and had left thoracentesis of 1.1lit
no fever, wt decreased
Review of Systems:
sob improved. no cp
no n/v
Labs
-
Labs:
WBC 3.0 10^3/uL (4.8-10.8) L 11/04/23 03:53
RBC 3.21 10^6/uL (4.70-6.10) L 11/04/23 03:53
Hgb 9.3 g/dL (13.0-18.0) L 11/04/23 03:53
Hct 28.7 % (39.0-52.0) L 11/04/23 03:53
Plt Count 159 10^3/uL (130-400) D 11/04/23 03:53
Sodium 135 mmol/L (135-145) 11/04/23 03:53
Potassium 3.6 mmol/L (3.5-5.1) 11/04/23 03:53
Chloride 103 mmol/L (98-107) 11/04/23 03:53
Carbon Dioxide 26 mmol/L (22-30) 11/04/23 03:53
BUN 23 mg/dl (9-20) H 11/04/23 03:53
Creatinine 2.3 mg/dL (0.7-1.3) H 11/04/23 03:53
eGFR 29.25 11/04/23 03:53
Glucose 75 mg/dl (70-99) 11/04/23 03:53
Calcium 7.4 mg/dl (8.4-10.2) L 11/04/23 03:53
Phosphorus 3.4 mg/dl (2.5-4.5) 11/02/23 06:10
Aqw-D-Byqatomjmau Pept > 85841 pg/ml 11/01/23 13:22
Albumin 2.4 g/dl (3.5-5.0) L 11/04/23 03:53
Physical Exam
-
Vital Signs:
Vital Signs
Temp Pulse Resp BP Pulse Ox
98.1 F 71 18 140/73 99
11/04/23 15:13 11/04/23 15:32 11/04/23 15:13 11/04/23 15:32 11/04/23 15:13
Cardiovascular:: Regular rate and rhythm
Respiratory:: Bilateral: CTA
Lung Excursion:: Normal
Abdomen:: Nontender and Soft
Extremity Edema:: None: Bilateral:
Viera Catheter: No
--- NOTE | 2023-11-04 16:14 | CM ---
Patient seen bedside.
For HD tomorrow.
PT/OT recommending home care, patient declined.
Patient drove to the hospital and will transport himself home.
Possible d/c tomorrow.
Plan; Home and follow up with outpatient dialysis at [facility]
Phone; [phone]
Fax; [phone]
[2023-11-04 19:20] VITALS: BP 143/71
[2023-11-04] MEDS: RISPERDAL 0.25 MG PO (21:15)
[2023-11-04] MEDS: ZETIA 10 MG PO (21:15)
[2023-11-04 23:15] VITALS: BP 133/73
[2023-11-05 03:48] VITALS: BP 150/73
[2023-11-05 06:00] VITALS: BMI 22.9
[2023-11-05 07:00] VITALS: BP 156/92
[2023-11-05] MEDS: HEPARIN 500 UNITS IV ×2 (07:40→08:40)
[2023-11-05 08:05] LABS: Hematocrit 31.3 % (39.0-52.0); Hemoglobin 10.1 g/dL (13.0-18.0)
[2023-11-05 08:14] LABS: Carbon Dioxide 32 mmol/L (22-30); Chloride 97 mmol/L (98-107); Potassium 4.1 mmol/L (3.5-5.1); Sodium 133 mmol/L (135-145)
[2023-11-05] MEDS: RETACRIT 6000 UNITS IV (08:33)
[2023-11-05 11:00] VITALS: BP 131/79
--- NOTE | 2023-11-05 11:06 | W.PN.HOSP.TC ---
Addendum entered and electronically signed by Edi Garcia MD 11/12/23 12:25:
Volume overload likely secondary to acute on chronic HFrEF and due to ESRD
Addendum entered and electronically signed by Edi Garcia MD 11/05/23 13:31:
Abnormal lab value insignificant
Chest x-ray negative for pneumothorax. Patient without any chest pain or shortness of breath. Stable on room air. Agreed for DC home today.
More than 30 minutes spent in discharge including
Final examination of the patient
Summarizing hospital stay
Instructions for continuing care to all relevant caregivers
Preparation of discharge records, prescriptions, and referral forms
Total time spent (in minutes): 55
Original Note:
Today's Communication/Plan
-
CXR pending
HD today
plan for tentative dc later today
Assessment / Plan
Assessment / Plan
#Recurrent Left Pleural Effusion
-Likely due to hypervolemia / CHF +/- myeloma.
-Transudative in nature. Status post 1100 cc removed. Preliminary Gram stain negative for growth.
-Multiple episode of pleural effusion and underwent thoracentesis.
-CT chest with Small bilateral pleural effusions with adjacent atelectasis within the in the right lower lobe. There is partial collapse of the right middle lobe. There is more confluent opacities within the left lower lobe and inferior left upper
lobe which may represent superimposed infectious process or pneumonitis. There is a trace left apical pneumothorax, likely postprocedural.
-CXR pending
#Chest pressure with shortness of breath/chronic troponin elevations
#ASCVD
#Cardiac stents x 4
# Elevated troponin likely 2/2 non ischemic myocardia injury (setting of volume overload, ESRD with decrease clearance) Chronic troponin elevations
- Stable. No complaints of chest pain, dyspnea, etc.
- EKG noted. similar compared to 10/16
- trop downtrended and lower compared to prior admission.
- Continue Imdur 30 mg daily
- Echo with EF of 45 to 50%. Mild hypokinesis. Moderate to severe concentric LVH. Normal right ventricular size and function. Estimated PASP 24 mmHg. Compared to prior echo from April 23, 2023 no significant change.
#ESRD on HD
- Initiated on HD during prior admission July 2023 following L renal hemorrhage / retroperitoneal bleed
- HD ongoing. Volume removal helped with symptoms.
- Follow BMP
#Anemia of chronic disease
-Follow CBC. Epo and IV iron per nephro
#Chronic HFrEF
I/O, daily weights
- Volume management on HD
- ECHo as above
#Paroxysmal Atrial Fibrillation
- Continue amiodarone 100 mg daily
- No longer on OAC following significant retroperitoneal bleeding on Eliquis event from July 2023
#Benign Hypertension
-Continue Imdur 30 mg daily, hydralazine 10 mg 3 times daily with hold parameters
#Multiple Myeloma / Cardiac Amyloidosis
#chemo induced peripheral neuropathy
- Continue venetoclax.
- Receives Darzalex monthly.
-On chronic acyclovir
--Continue gabapentin
#HLD
Continue Crestor 10 mg daily
#Anxiety
Continue risperidone 0.25 mg at bedtime, Lamictal
Other PMH:
retroperitoneal bleed on Eliquis was stopped in July 2023
former smoker quit
DVT Prophylaxis: SCDs
Code Status: Full
PT/OT-Home health
Anticipated Discharge: Today
Subjective/Interval History
-
Date of Service: November 05, 2023
seen on HD
on room air
denies chest pain or pressure or sob at rest/exertion
comfortable
Objective Data
-
Labs:
Laboratory Results
11/05/23
07:53
Hgb 10.1 L
Hct 31.3 L
Sodium 133 L
Potassium 4.1
Chloride 97 L
Carbon Dioxide 32 H
Vital Signs:
Vital Signs
Temp Pulse Resp BP Pulse Ox
97.8 F 70 14 131/79 98
11/05/23 11:00 11/05/23 11:00 11/05/23 11:00 11/05/23 11:00 11/05/23 11:00
I&O
11/04/23 11/05/23 11/06/23
06:59 06:59 06:59
Intake Total 1110 / 1110 1320 / 1320
Balance 1110 / 1110 1320 / 1320
Physical Exam
-
General: Well Developed and No Apparent Distress
HEENT: Normocephalic, Atraumatic, Moist Mucous Membranes and Other ([facility] HD catheter noted and port R chest wall )
Respiratory: Decreased Breath Sounds
Cardiac: Regular Rhythm and S1/S2; Negative Murmur, Rub or Gallop
GI: Soft, Nontender, Nondistended and Normal Bowel Sounds; Negative Organomegaly
Rectal: Deferred by Provider
Musculoskeletal: No Clubbing, No Cyanosis and No Edema
Skin: Negative Rash
Neuro: Awake, Alert, Oriented, AO x 3, No Motor Deficits and Nonfocal/Grossly Intact
Psych: Calm
[2023-11-05] MEDS: HEPARIN 4400 UNITS INTRACATH (11:13)
--- NOTE | 2023-11-05 11:16 | CM ---
Chart reviewed and plan is for patient to return to home when stable, alone and follow up with Keerthi Toscano.
Phone; [phone]
Fax; [phone]
Plan; Patient denies the need for visiting nurses at discharge.
--- NOTE | 2023-11-05 12:09 | PN.CDI ---
CDI
- -
CDI:
Physician Documentation Request
Admit Date: 11/01/23 16:03
Dear Doctor Radha,
Patient admitted for chest pressure.
Laboratory Tests
11/01/23 11/02/23 11/03/23
13:22 06:10 05:50
Sodium 131 L 130 L 133 L
11/05/23
07:53
Sodium 133 L
Based on the above, could you clarify in the progress notes, the appropriate diagnosis, if significant, that supports the above abnormalities and additional evaluation, monitoring and/or treatment rendered:
Hyponatremia
Abnormal lab value insignificant
Other
Use of terms such as suspected, likely, concern for, or probable (associated with a specific diagnosis that is being evaluated, monitored, or treated as if it exists) are acceptable and can be coded in the inpatient setting, when documented at the
time of discharge.
Thank you,
Enriqueta Wong RN, BSN
CDI Specialist
Available via [place] text
Please use your independent medical judgment in providing your response.
[2023-11-05] MEDS: ZOVIRAX 200 MG PO (12:45)
[2023-11-05] MEDS: LAMICTAL 100 MG PO (12:48)
[2023-11-05] MEDS: ASPIR LOW (ENTERIC COATED) 81 MG PO (12:48)
[2023-11-05] MEDS: NEURONTIN 100 MG PO (12:48)
[2023-11-05] MEDS: APRESOLINE 10 MG PO (12:48)
[2023-11-05] MEDS: ZYLOPRIM 100 MG PO (12:48)
[2023-11-05] MEDS: CRESTOR 10 MG PO (12:49)
[2023-11-05] MEDS: IMDUR (EXTENDED RELEASE) 30 MG PO (12:49)
--- NOTE | 2023-11-05 13:28 | W.DCSUMMARY ---
Discharge Summary
Discharge Data
Date of Admission: 11/01/23
Date of Discharge: 11/05/23
-
Pending Results: No
Hospital Course
72y M with PMH significant for ESRD on HD, chronic troponin elevation, CAD status post stents, anemia of chronic disease, chronic HFrEF, atrial fibrillation, hypertension, multiple myeloma, cardiac amyloidosis, chemo induced peripheral neuropathy,
hyperlipidemia, anxiety retroperitoneal bleed secondary Eliquis now off DOAC who is presenting from home with shortness of breath and chest pressure. Patient was found to be volume overloaded. Patient had a chest x-ray with concern for pleural
effusion. Patient underwent hemodialysis with volume removal. Also underwent thoracentesis with significant fluid removal from left side. Patient symptomology significantly improved and resolved with fluid removal. Patient underwent repeat
hemodialysis on day of discharge. Recommended patient to follow-up with pulmonary for recurrent pleural effusions. Fluid studies for pleural effusion negative for infection.
Discharge Plan
-
Patient Disposition: Home with Home Care
Discharge Diagnosis/Procedures: Recurrent left pleural effusion status post thoracentesis
Shortness of breath likely second to volume overload
Nonischemic myocardial injury
Hemodialysis
Condition: Fair
Diet: 2 Gram Sodium and Restrict fluids to 48 oz
Activity: As tolerated
Driving Restrictions: As prior to admission
Activity Restrictions/Additional Instructions:
Recommend to follow-up pleural fluid cytology results with primary care doctor.
Referrals:
Jarrett Gill MD [Active] - in one to two weeks (Follow-up for recurrent pleural effusion.)
UNKNOWN - PT DOES,NOT KNOW [Family Provider] - in less than 1 week
Prescriptions:
Continued
lamotrigine 100 MG tablet
100 mg PO BID
ezetimibe 10 MG tablet
10 mg PO HS
rosuvastatin 10 MG tablet
10 mg PO DAILY
aspirin 81 MG tablet,delayed release (DR/EC)
81 mg PO DAILY
allopurinol 100 MG tablet
100 mg PO DAILY
montelukast [Singulair] 10 mg Tablet
10 mg PO UD
Rx Instructions:
take the night before, night of, and night after Darzalex infusion.
gabapentin [Neurontin] 100 mg Capsule
100 mg PO TID
acyclovir 400 mg Tablet
400 mg PO BID
dexamethasone 4 mg Tablet
4 mg PO UD
Rx Instructions:
take the day after Darzalex infusion and for 2 days after.
Darzalex 20 mg/mL Solution
1,800 mg IV QMONTH
Venclexta 100 mg Tablet
200 mg PO DAILY
risperidone 0.25 mg Tablet
0.25 mg PO HS
hydralazine 10 mg Tablet
10 mg PO TID Qty: 90 0RF
amiodarone [Pacerone] 100 mg Tablet
100 mg PO SuTuThSa@0800 Qty: 30 0RF
isosorbide mononitrate 30 mg Tablet Extended Release 24 Hr
30 mg PO DAILY Qty: 0 0RF
Discharge Orders:
Discharge Patient (As Directed); Ordered 11/05/23
Ordered By: Edi Garcia
Discharge Date and Time
Print Language: NEPALI
--- NOTE | 2023-11-05 14:04 | W.PN.NEPH.HD ---
Assessment
-
- patient feeling well on HD
- no complaints
Progress Note - Hemodialysis
-
Date of Service: November 05, 2023
Duration: 30 minutes and 3 hours
Potassium Bath: 3
Calcium Bath: 2.5
Opti-Dialyzer: 160
Ultrafiltration: Other
Blood Flow: 400
Dialysate Flow: 600
[2023-11-05 15:00] VITALS: BP 150/78
--- NOTE | 2023-11-08 17:24 | PN.CDI ---
CDI
- -
CDI:
Physician Documentation Request
Admit Date: 11/01/23 16:03
Dear Doctor Radha
Please review the following and provide your response in the progress notes.
Clinical Indicators:
Patient presented with SOB and chest pressure.. found to be volume overloaded
H&P: pleural effusion... likely due to hypervolemia/CHF
Chronic HFrEF; volume management on HD
DS: SOB likely second to volume overload
Based on the above, could you clarify in the progress notes, the appropriate diagnosis, if significant, that supports the above abnormalities and additional evaluation, monitoring and/or treatment rendered:
Volume overload due to Acute CHF
Volume overload with chronic CHF
Volume overload unrelated to CHF
Other
Unable to determine
Use of terms such as suspected, likely, concern for, or probable (associated with a specific diagnosis that is being evaluated, monitored, or treated as if it exists) are acceptable and can be coded in the inpatient setting, when documented at the
time of discharge.
Thank you,
Laura Menezes
[employer] Work[employer] Inpatient
Please use your independent medical judgment in providing your response.
== END 2023-11-05 16:55 | disposition home or self-care (01) | DRG 291 ==
LOC: 4 WEST ACU 16:03
PROVIDERS: Clinical Nurse Specialist Family Health; Nurse Practitioner Gerontology; Radiology Vascular & Interventional Radiology; Student in an Organized Health Care Education/Training Program; ADMITTING PHYSICIAN Hospitalist; CONSULT PHYSICIAN Specialist; EMERGENCY PHYSICIAN Emergency Medicine
PROC: 5A1D70Z Performance of Urinary Filtration, Intermittent, Less than 6 Hours Per Day (ICD-10-PCS; 2023-11-02)
PROC: 0W9B3ZZ Drainage of Left Pleural Cavity, Percutaneous Approach (ICD-10-PCS; 2023-11-02)
DX: I13.2 Hypertensive heart and chronic kidney disease with heart failure and with stage 5 chronic kidney disease, or end stage renal disease (principal); I50.23 Acute on chronic systolic (congestive) heart failure; N18.6 End stage renal disease; C90.00 Multiple myeloma not having achieved remission; E85.4 Organ-limited amyloidosis; J91.8 Pleural effusion in other conditions classified elsewhere; I25.10 Atherosclerotic heart disease of native coronary artery without angina pectoris; I48.0 Paroxysmal atrial fibrillation; E78.00 Pure hypercholesterolemia, unspecified; G62.0 Drug-induced polyneuropathy; T45.1X5A Adverse effect of antineoplastic and immunosuppressive drugs, initial encounter; F41.9 Anxiety disorder, unspecified; F32.A Depression, unspecified; I5A Non-ischemic myocardial injury (non-traumatic); M10.9 Gout, unspecified; Z95.5 Presence of coronary angioplasty implant and graft; Z99.2 Dependence on renal dialysis; Z96.653 Presence of artificial knee joint, bilateral; Z88.8 Allergy status to other drugs, medicaments and biological substances; Z88.1 Allergy status to other antibiotic agents; Z87.891 Personal history of nicotine dependence; Z79.899 Other long term (current) drug therapy; Z79.82 Long term (current) use of aspirin
CPT/HCPCS: 88305; 32555; 71045; 71046; 71250; 80048; 80051; 80053; 82150; 82945; 83615; 83735; 83880; 83986; 84100; 84157; 84478; 84484; 85014; 85018; 85025; 87015; 87070; 87102; 87116; 87205; 87206; 88112; 89051; 93005; 93306; 94760; 97162; 97166; 99285; G0257; P9047; Q5106

== ENCOUNTER → 2023-11-22 07:04 | Outpatient (REF) | payer MEDICARE, SELFPAY | LOC: RAD 07:04 | PROVIDERS: ATTENDING PHYSICIAN Internal Medicine Cardiovascular Disease; FAMILY PHYSICIAN Internal Medicine; REFERRING PHYSICIAN Internal Medicine Hematology & Oncology | DX: I50.32 Chronic diastolic (congestive) heart failure (principal) | CPT/HCPCS: 71046 ==

== ENCOUNTER 2023-12-02 20:04 | Emergency (ER) | payer MEDICARE, SELFPAY ==
[2023-12-02 20:16] VITALS: BP 134/88
[2023-12-02 20:53] VITALS: BMI 23.1
--- NOTE | 2023-12-02 22:03 | ED.GENMED ---
History of Present Illness
General
Chief Complaint: Fall
Source: patient
Exam Limitations: none
Time Seen by Provider: 12/02/23 20:57
Nursing documentation reviewed up to this point in time: agreed with
History of Present Illness
History of Present Illness:
73-year-old male ESRD, on aspirin not diabetic fell off his tractor struck the right side of his head earlier today, feeling a bit dizzy and unsteady when he walks, no abdominal pain when asked about shortness of breath states he does not have
shortness of breath although he has been having some recurrent shortness of breath he scheduled to have a chest x-ray soon because he has had recurrent fluid accumulation in his chest, he goes to dialysis Sunday has not missed any
dialysis sessions
Past History
Past History
ED Past Medical History: Arrthythmia (Atrial fib), CAD, Cancer (multiple myeloma, Skin CA), CHF, HTN, Hypercholesterolemia, NM, Renal failure (Dialysis -W-), Psychiatric (Depression) and Other (chronic renal disease, amyloidosis, Syncope, Renal
calculus, Lymes, )
ED Past Surgical History: Cardiac (Stents X 4), Orthopedic (Cancer removed from left shoulder, Left knee meniscus, Right rotator cuff, , Bilateral knee replacement) and Other (Hernia repair, )
Social History
Tobacco: Former smoker
Alcohol: Occasional
Drug: None
Personal:
Living: alone
Employment: Not employed
Review of Systems
Review of Systems
All Other Systems: Not applicable
Constitutional: Denies fever or fatigue
EENT: Reports no symptoms
Respiratory: Reports trouble breathing (Intermittent for some time between dialysis session)
Cardiac: Reports no symptoms
ABD/GI: Reports no symptoms
: Reports no symptoms
Musculoskeletal: Reports no symptoms
Skin: Reports no symptoms
Neurological: Reports dizzy
Endocrine: Reports no symptoms
Phy Exam
Physical Exam
Physical Exam:
Physical Exam
General: 73 male nontoxic
Neck: Abrasion in the right ear
Heart: s1/s2 regular rate and rhythm, no murmur. equal radial pulses.
Lungs: Crackles left greater than
Abdomen: Nontender
Neuro: alert and oriented. no focal neurological deficits
Skin: no rash
Psychiatric: well kept. interactive and cooperative
Extremities: Edema is.
Course
Orders/Labs/Results
Orders:
Orders
12/02/23 20:[address] [CT Head W/o Iv Contrast] Urgent
Comment:
Reason For Exam: FALL/ RIGHT HEAD, FUZZINESS
12/02/23 20:22
CT Cervical Spine W/o Iv Contr Urgent
Comment:
Reason For Exam: fall
12/02/23 21:23
CR Chest - 2 Views Urgent
Comment:
Reason For Exam: sob
Vital Signs
Initial and Last Documented VS:
Initial Vital Signs
Temp Pulse Resp BP Pulse Ox
98.1 F 76 22 134/88 98
12/02/23 20:16 12/02/23 20:16 12/02/23 20:16 12/02/23 20:16 12/02/23 20:16
Last Documented Vital Signs
Temp Pulse Resp BP Pulse Ox
98.1 F 76 22 134/88 98
12/02/23 20:16 12/02/23 20:16 12/02/23 20:16 12/02/23 20:16 12/02/23 20:16
MDM/Problems Addressed
Differential Diagnosis Includes:
Skull fracture intracerebral hemorrhage subdural hematoma epidural hematoma C-spine injury
Recurrent shortness of breath
MDM/Problems Addressed:
Fall
Chronic conditions affecting care: HTN, Neurological disorder and Kidney disease
Acute Exacerbation and/or Progression of Chronic Illness: HTN, Neurological disorder and Kidney disease
*Radiology
Radiology exam reviewed: radiology read reviewed
*Pulse Oximetry
Patient hypoxic: no
*Critical Care Note
Total Time (30-74mins, 75-104mins- exclusive of procedures): Not Applicable
Update Note
Update Note:
Will check CT to head cervical spine, chest x-ray
Update CT reports noted chest x-ray noted report noted prior chest x-ray noted prior records reviewed was admitted here for shortness of breath had a thoracentesis, overall the patient appears well reviewed the history of his presentation again with
him he states he tripped over a tire, does not appear to been syncopal event, I did offer him admission consideration for thoracentesis etc. he states he feels okay to go home to go to dialysis tomorrow I will ask nursing to walk him before he goes,
ED Attending Note
-
Portions of this chart may have been created with voice recognition software.� Occasional wrong word or��sound alike� substitutions may have occurred due to the inherent limitations of voice recognition software.
Discharge Plan
Departure
Prescriptions:
No Action
lamotrigine 100 MG tablet
100 mg PO BID
ezetimibe 10 MG tablet
10 mg PO HS
rosuvastatin 10 MG tablet
10 mg PO DAILY
aspirin 81 MG tablet,delayed release (DR/EC)
81 mg PO DAILY
allopurinol 100 MG tablet
100 mg PO DAILY
montelukast [Singulair] 10 mg Tablet
10 mg PO UD
Rx Instructions:
take the night before, night of, and night after Darzalex infusion.
gabapentin [Neurontin] 100 mg Capsule
100 mg PO TID
acyclovir 400 mg Tablet
400 mg PO BID
dexamethasone 4 mg Tablet
4 mg PO UD
Rx Instructions:
take the day after Darzalex infusion and for 2 days after.
Darzalex 20 mg/mL Solution
1,800 mg IV QMONTH
Venclexta 100 mg Tablet
200 mg PO DAILY
risperidone 0.25 mg Tablet
0.25 mg PO HS
hydralazine 10 mg Tablet
10 mg PO TID Qty: 90 0RF
amiodarone [Pacerone] 100 mg Tablet
100 mg PO SuTuThSa@0800 Qty: 30 0RF
isosorbide mononitrate 30 mg Tablet Extended Release 24 Hr
30 mg PO DAILY Qty: 0 0RF
Referrals:
Bang Lambert III, DO [Family Provider] -
Interventions
Interventions:
*Risk Screen - Suicide Last Done: 12/02/23 20:16
*Neglect/Abuse Screening Last Done: 12/02/23 20:16
ED-Musculoskeletal Assessment Last Done: 12/02/23 20:53
ED- Neurological Assessment Last Done: 12/02/23 20:53
ED-Skin Assessment Last Done: 12/02/23 20:53
Discharge Date and Time
Print Language: SLOVENIAN
[2023-12-02 22:40] VITALS: BP 141/70
== END 2023-12-02 22:48 | disposition home or self-care (01) ==
LOC: EMR 20:04
PROVIDERS: EMERGENCY PHYSICIAN Emergency Medicine; FAMILY PHYSICIAN Internal Medicine
DX: S00.411A Abrasion of right ear, initial encounter (principal); V89.9XXA Person injured in unspecified vehicle accident, initial encounter; I13.2 Hypertensive heart and chronic kidney disease with heart failure and with stage 5 chronic kidney disease, or end stage renal disease; N18.6 End stage renal disease; I50.9 Heart failure, unspecified; Z99.2 Dependence on renal dialysis; E78.00 Pure hypercholesterolemia, unspecified; I25.10 Atherosclerotic heart disease of native coronary artery without angina pectoris; Z87.891 Personal history of nicotine dependence; Z95.5 Presence of coronary angioplasty implant and graft
CPT/HCPCS: 99284; 70450; 71046; 72125

== ENCOUNTER 2023-12-25 21:31 | Inpatient (IN) | payer MEDICARE, SELFPAY ==
[2023-12-25 17:21] VITALS: BP 130/66
[2023-12-25 18:01] LABS: COVID-19 Antigen Negative (Negative)
[2023-12-25 18:05] LABS: % Basophils 1.6 % (0-2); % Immature Granulocytes 0.2 % (0-0.5); % Lymphocytes 8.8 % (20.5-51.1); % Monocytes 12.9 % (1.7-9.3); % Neutrophils 76.5 % (42.2-75.2); Absolute Basophils 0.1 10^3/uL (0-0.2); Absolute Lymphocytes 0.4 10^3/uL (1.2-3.4); Absolute Monocytes 0.6 10^3/uL (0.1-0.6); Absolute Neutrophils 3.3 10^3/uL (1.4-6.5); Hematocrit 35.4 % (39.0-52.0); Hemoglobin 11.3 g/dL (13.0-18.0); Mean Corp Hgb Conc. 31.9 g/dL (33.0-37.0); Mean Corpuscular Hgb 27.8 pg (27.0-31.0); Nucleated Red Blood Cells % 0 % (-); Platelet Count 206 10^3/uL (130-400); Red Blood Cell Count 4.07 10^6/uL (4.70-6.10); Red Cell Dist. Width 16.8 % (11.5-14.5); White Blood Cell Count 4.3 10^3/uL (4.8-10.8)
[2023-12-25 18:21] LABS: ALT (SGPT) 13 U/L (0-50); AST (SGOT) 28 U/L (17-59); Albumin 3.1 g/dl (3.5-5.0); Alkaline Phosphatase 127 U/L (38-126); Blood Urea Nitrogen 34 mg/dl (9-20); Calcium 8.2 mg/dl (8.4-10.2); Carbon Dioxide 29 mmol/L (22-30); Chloride 99 mmol/L (98-107); Glucose 116 mg/dl (70-99); Potassium 4.2 mmol/L (3.5-5.1); Sodium 137 mmol/L (135-145); Total Bilirubin 0.5 mg/dl (0.2-1.3); Total Protein 5.2 g/dl (6.3-8.2); eGFR 25.09
--- NOTE | 2023-12-25 19:08 | ED.GENMED ---
History of Present Illness
General
Chief Complaint: Breathing Problem
Source: patient
Exam Limitations: none
Time Seen by Provider: 12/25/23 18:57
History of Present Illness
History of Present Illness:
See MDM
Past History
Past History
ED Past Medical History: Arrthythmia (Atrial fib), CAD, Cancer (multiple myeloma, Skin CA), CHF, HTN, Hypercholesterolemia, IA, Renal failure (Dialysis M-W-F), Psychiatric (Depression) and Other (chronic renal disease, amyloidosis, Syncope, Renal
calculus, Lymes, )
ED Past Surgical History: Cardiac (Stents X 4), Orthopedic (Cancer removed from left shoulder, Left knee meniscus, Right rotator cuff, , Bilateral knee replacement) and Other (Hernia repair, )
Social History
Tobacco: Former smoker
Alcohol: Occasional
Drug: None
Personal:
Living: alone
Employment: Not employed
Phy Exam
Physical Exam
Physical Exam:
See MDM
Scores
Heart Failure Risk
Heart Failure Risk Score: Not Applicable
Course
Orders/Labs/Results
Orders:
Orders
12/25/23 17:28
EKG [Electrocardiogram (*1)] Urgent
Reason for Study: Shortness of Breath
12/25/23 17:30
EKG- Treatment ONCE
CR Chest - 2 Views Urgent
Comment:
Reason For Exam: sob
12/25/23 17:38
COVID-19 Antigen Urgent
Source: Nasal Swab
INF RAPID [Influenza A+B Rapid Molecular] Urgent
KRISTA Source: Nasal Swab
Specimen Description:
12/25/23 17:47
CMP [Comprehensive Metabolic Panel] Urgent
Complete Blood Count/With Diff Urgent
Troponin I Urgent
Abnormal Lab Results
12/25/23
17:47
WBC 4.3 L 10^3/uL
(4.8-10.8)
RBC 4.07 L 10^6/uL
(4.70-6.10)
Hgb 11.3 L g/dL
(13.0-18.0)
Hct 35.4 L %
(39.0-52.0)
MCHC 31.9 L g/dL
(33.0-37.0)
RDW 16.8 H %
(11.5-14.5)
Absolute Lymphs (auto) 0.4 L 10^3/uL
(1.2-3.4)
Neutrophils % 76.5 H %
(42.2-75.2)
Lymphocytes % 8.8 L %
(20.5-51.1)
Monocytes % 12.9 H %
(1.7-9.3)
BUN 34 H mg/dl
(9-20)
Creatinine 2.6 H mg/dL
(0.7-1.3)
Glucose 116 H mg/dl
(70-99)
Calcium 8.2 L mg/dl
(8.4-10.2)
Alkaline Phosphatase 127 H U/L
(38-126)
Troponin I 0.190 H* ng/ml
Total Protein 5.2 L g/dl
(6.3-8.2)
Albumin 3.1 L g/dl
(3.5-5.0)
12/25/23 17:47
12/25/23 17:47
Vital Signs
Initial and Last Documented VS:
Initial Vital Signs
Temp Pulse Resp BP Pulse Ox
98.8 F 81 22 130/66 98
12/25/23 17:21 12/25/23 17:21 12/25/23 17:21 12/25/23 17:21 12/25/23 17:21
Last Documented Vital Signs
Temp Pulse Resp BP Pulse Ox
98.8 F 71 18 130/66 97
12/25/23 17:21 12/25/23 19:15 12/25/23 19:20 12/25/23 17:21 12/25/23 19:15
MDM/Problems Addressed
Differential Diagnosis Includes:
HPI and MDM Narrative:
73-year-old male with multiple comorbidities is presenting to the emergency department for worsening shortness of breath. Patient saw his oncologist today and was told that there is decreased lung sounds in the left base. Patient has been more
short of breath recently, especially with exertion. Patient believes he has another pleural effusion that will require drainage. On exam, he is sitting in bed comfortably but he has decreased lung sounds in the left base. Chest x-ray consistent
with moderate size left pleural effusion. Prior records indicate that he had similar issues in October which required thoracentesis and increased dialysis. His last dialysis session was yesterday. Given his history, will admit for dialysis
tomorrow and IR evaluation for possible thoracentesis
Physical exam
General: Well appearing and non-toxic
HEENT: protecting airway
Neck: appears supple
CV: No evidence of cyanosis. Regular rate, irregular rhythm
Resp: No accessory muscle use. Decreased lung sounds on the left
Abd: Non-distended
Extremities: No deformities
Neuro: alert
Psych: Normal affect
Skin: Intact
Problems Addressed including Acute and Chronic Conditions affecting care:
1. Pleural effusion
Acuity: acute
Prognosis: stable
Details: Will admit for IR evaluation.
2. End-stage renal disease
Acuity: Chronic
Prognosis: stable
Details: Will require HD tomorrow
3. [ ]
Acuity: acute
Prognosis: stable
Details:
4. [ ]
Acuity: acute
Prognosis: stable
Details:
5. [ ]
Acuity:
Prognosis:
Details:
Updates
Will refrain from Lasix given that he does not make much urine
Differential Diagnosis (but not limited to): Congestive heart failure, pleural effusion, ACS
Testing considered: Troponin but he appears to be chronically elevated
Drug therapy (if applicable): OTC meds, please see d/c instruction regarding Rx drugs
Amount and/or Complexity of Data Reviewed
Clinical info obtained from: Patient
External data reviewed: N/A
Labs I independently reviewed (but not limited to): Elevated troponin
Radiology: X-ray independently reviewed: Chest x-ray shows moderate size left pleural effusion
Pulse Ox: not hypoxic
EKG independently reviewed: N/A
Search Manager: A-fib, left axis, no STEMI
Critical Care: N/A
Risk of Complication:
Social Determinants of health: Good social support
Discussed with other providers: Hospitalist
Escalation of Care includes Admit/Obs: Given the pleural effusion that would likely require thoracentesis, will admit
Occasional wrong word or 'sound a like' substitutions may have occurred due to the inherent limitations of voice recognition software. Read the chart carefully and recognize, using context, where substitutions have occurred.
*Critical Care Note
Total Time (30-74mins, 75-104mins- exclusive of procedures): Not Applicable
ED Attending Note
-
Portions of this chart may have been created with voice recognition software.� Occasional wrong word or��sound alike� substitutions may have occurred due to the inherent limitations of voice recognition software.
Discharge Plan
Departure
Patient Disposition: Admit
Date of Disposition: 12/25/23
Time of Disposition: 19:34
Admit to: Med/Surg
Presentation/result/management discussed w/ accepting MD/DO: Hospitalist
Discharge Problem:
Pleural effusion
Prescriptions:
No Action
lamotrigine 100 MG tablet
100 mg PO BID
ezetimibe 10 MG tablet
10 mg PO HS
rosuvastatin 10 MG tablet
10 mg PO DAILY
aspirin 81 MG tablet,delayed release (DR/EC)
81 mg PO DAILY
allopurinol 100 MG tablet
100 mg PO DAILY
montelukast [Singulair] 10 mg Tablet
10 mg PO UD
Rx Instructions:
take the night before, night of, and night after Darzalex infusion.
gabapentin [Neurontin] 100 mg Capsule
100 mg PO TID
acyclovir 400 mg Tablet
400 mg PO BID
dexamethasone 4 mg Tablet
4 mg PO UD
Rx Instructions:
take the day after Darzalex infusion and for 2 days after.
Darzalex 20 mg/mL Solution
1,800 mg IV QMONTH
Venclexta 100 mg Tablet
200 mg PO DAILY
risperidone 0.25 mg Tablet
0.25 mg PO HS
hydralazine 10 mg Tablet
10 mg PO TID Qty: 90 0RF
amiodarone [Pacerone] 100 mg Tablet
100 mg PO SuTuThSa@0800 Qty: 30 0RF
isosorbide mononitrate 30 mg Tablet Extended Release 24 Hr
30 mg PO DAILY Qty: 0 0RF
Interventions
Interventions:
*Risk Screen - Suicide Last Done: 12/25/23 17:21
*General Assessment Last Done: 12/25/23 19:26
*Neglect/Abuse Screening Last Done: 12/25/23 17:21
ED- Fall Risk Assessment Last Done: 12/25/23 19:26
*ED COVID-19 Vaccine History Last Done: 12/25/23 17:21
ED- Cardiac Assessment Last Done: 12/25/23 19:25
ED- Pulmonary Assessment Last Done: 12/25/23 19:25
Discharge Date and Time
Print Language: RUSSIAN
[2023-12-25 20:00] VITALS: BP 129/67
[2023-12-25 21:00] VITALS: BP 119/72
--- NOTE | 2023-12-25 21:23 | HPS.HSE ---
Family Physician
-
Family Physician: Bang Lambert
Chief Complaint
-
SOB
History of Present Illness
Patient is a 73y M with PMH significant for ESRD on HD, ASCVD, CHF and A-Fib who presents to ED complaining of SOB. Patient states that he has been gradually becoming SOB - worse with exertion / activity. His symptoms have been severe for the
past two days - prompting him to present to the ED for further evaluation. Patient also reports associated symptom of chest tightness that occurred today. No fevers / chills. He does report hacking, non-productive cough.
Patient had his usual HD session on Sunday and states that there were no issues.
He has a recurrent L pleural effusion and has had thoracenteses in the past - most recently on 11/02/23 for 1100 of clear fluid.
Medical History
Past Medical History
Past Medical History: Reports Other
Additional Past Medical History:
ASCVD
Hypertension
Chronic HFrEF
Paroxysmal Atrial Fibrillation
ESRD on HD
Multiple Myeloma / Amyloidosis
Gout
Anemia of Chronic Disease
Recurrent Left Pleural Effusion
Chemo-Induced Peripheral Neuropathy
Depression
Retroperitoneal Bleeding on Eliquis
Past Surgical History: Reports Other
Additional Past Surgical History:
Left IJ HD Catheter
R ACW Port
PTCA with Stent (x 4)
Bilateral TKA
Hernia Repair
Right Rotator Cuff Repair (x 2)
Social History
Tobacco: Former Smoker (Quit smoking in the . Approx 20 pack years total use.)
Alcohol: Occasional (Very rare.)
Drug: None
Family History
Family History: Not pertinent
Allergies / Home Medications
Allergies reflects when Allergies were last updated in [employer]
Home Medications with original date entered in [employer]
Allergy/Medication List:
Allergies
Allergy/AdvReac Type Severity Reaction Status Date / Time
atorvastatin Allergy MUSCLE Verified 10/16/23 23:36
CRAMPS
Cephalosporins Allergy kidney Verified 10/16/23 23:36
disease
coconut Allergy vomits Verified 10/16/23 23:36
penicillin V Allergy Vomiting Verified 10/16/23 23:36
pregabalin [From Lyrica] Allergy Tongue Verified 10/16/23 23:36
Swelling
simvastatin Allergy muscle Verified 10/16/23 23:36
cramps
Home Medications
lamotrigine 100 mg tablet 100 mg PO BID Neurological Condition 07/24/19
ezetimibe 10 mg tablet 10 mg PO HS High cholesterol 08/26/19
rosuvastatin 10 mg tablet 10 mg PO DAILY High cholesterol 08/26/19
aspirin 81 mg tablet,delayed release 81 mg PO DAILY Blood clot prevention/tx 08/27/19
allopurinol 100 mg tablet 100 mg PO DAILY Gout 06/15/20
gabapentin 100 mg capsule (Neurontin) 100 mg PO TID Pain 09/26/21
montelukast 10 mg tablet (Singulair) 10 mg PO UD bone pain prevention 09/26/21
acyclovir 400 mg tablet 400 mg PO BID Infection 01/03/23
dexamethasone 4 mg tablet 4 mg PO UD Anti-Inflammatory 01/03/23
daratumumab 20 mg/mL intravenous solution (Darzalex) 1,800 mg IV QMONTH Cancer 04/20/23
venetoclax 100 mg tablet (Venclexta) 200 mg PO DAILY Cancer 04/20/23
risperidone 0.25 mg tablet 0.25 mg PO HS Mental Health/Anxiety 08/06/23
amiodarone 100 mg tablet (Pacerone) 100 mg PO SuTuThSa@0800 #30 tabs 08/21/23
hydralazine 10 mg tablet 10 mg PO TID #90 tabs 08/21/23
isosorbide mononitrate 30 mg tablet,extended release 24 hr 30 mg PO DAILY HEART CONDITION #0 tabs 08/21/23
Review of Systems
-
History Source: Patient
A 12 point ROS was completed and negative except as noted: Yes
Constitutional: Denies Fever or Chills
Respiratory: Reports Trouble Breathing; Denies Cough
Cardiac: Reports Chest Pain; Denies Palpitations
Abdomen/GI: Denies Abdominal Pain, Nausea, Vomiting or Diarrhea
Musculoskeletal: Denies Joint Pain or Edema
Neurological: Denies Dizzy or Headache
Psych: Denies Depression or Anxiety
Physical Exam
Vital Signs
Vital Signs
Temp Pulse Resp BP Pulse Ox
98.8 F 69 27 129/67 98
12/25/23 17:21 12/25/23 20:15 12/25/23 20:15 12/25/23 20:00 12/25/23 20:00
Physical Exam
General: Other (73y M in no acute distress.)
HEENT: Moist mucous membranes, PERRLA and Other (L IJ HD cath in place. Site without bleeding / strikethrough. R ACW Port in place. No erythema / induration.)
Respiratory: Other (Decreased BS at the L base with dullness to percussion - about 1/3 up.)
Cardiac: S1/S2 and Regular Rhythm
GI: Soft, Non Tender, Non Distended and Normal Bowel Sounds
Musculoskeletal: No Clubbing, No Cyanosis and Other (2+ pitting edema at ankles bilaterally.)
Neuro: AO x 3
Psych: No Anxious or Depressed
Laboratory Results
-
12/25/23 17:47
12/25/23 17:47
Laboratory Results
Total Bilirubin 0.5 mg/dl (0.2-1.3) 12/25/23 17:47
AST 28 U/L (17-59) 12/25/23 17:47
ALT 13 U/L (0-50) 12/25/23 17:47
Alkaline Phosphatase 127 U/L (38-126) H 12/25/23 17:47
Troponin I 0.190 ng/ml H* 12/25/23 17:47
Impression/Plan
-
A/P: Patient is a 73y M with PMH significant for ESRD, A-Fib and CHF who presents to ED complaining of worsening SOB, VENTURA and chest pain.
Recurrent Left Pleural Effusion
SOB secondary to the above
- Admit for further evaluation and treatment.
- s/p prior thoracentesis this year (March and October).
- Likely due to hypervolemia / CHF +/- myeloma.
- Not currently hypoxemic - but reports increasing dyspnea, especially for the past two days.
- Volume management on HD.
- IR consulted for repeat thoracentesis.
ESRD on HD
- Stable. Last HD was Sunday - no issues.
- Nephrology evaluation for HD needs during acute stay.
- ? adjustments in volume goals/ dry weight given recurrent effusion?
ASCVD
- Patient complains of chest pain associated with dyspnea for the past 2 days.
- EKG without acute ischemia.
- Troponin with modest elevation - but unchanged from patient's prior values.
- Continue usual CV med regimen.
- Follow troponin for any significant changes.
- Follow for any new / worsening symptoms.
Chronic HFrEF
- Stable. No LE edema. Re-accumulation of L effusion, presumably on the basis of hypervolemia.
- Volume management on HD as noted above.
- Follow daily weights, I/Os, etc.
Paroxysmal Atrial Fibrillation
- Stable. Continue amiodarone per outpatient schedule.
- No longer on OAC following significant bleeding event from July.
Benign Hypertension
- Stable. Continue usual medications with holding parameters.
Multiple Myeloma / Cardiac Amyloidosis
- Stable. Continue venetoclax.
- Receives Darzalex monthly.
- f/u with Oncology as an outpatient.
DVT Prophylaxis: SCDs
Code Status: Full
[2023-12-25 22:00] VITALS: BP 157/77
[2023-12-25] MEDS: APRESOLINE 10 MG PO (22:48)
[2023-12-25] MEDS: ZETIA 10 MG PO (22:49)
[2023-12-25] MEDS: RISPERDAL 0.25 MG PO (22:49)
[2023-12-25] MEDS: NEURONTIN 100 MG PO (22:49)
[2023-12-25 23:00] VITALS: BP 164/88
[2023-12-25] MEDS: TESSALON PERLES 100 MG PO (23:39)
[2023-12-25 23:51] LABS: Troponin I 0.184 ng/ml
[2023-12-26] VITALS (21 sets, daily range): BP systolic 75–176; BP diastolic 63–89; PULSE 73–77
[2023-12-26 04:17] LABS: Troponin I 0.177 ng/ml
[2023-12-26 05:55] LABS: Hematocrit 33.4 % (39.0-52.0); Hemoglobin 10.5 g/dL (13.0-18.0); Mean Corp Hgb Conc. 31.4 g/dL (33.0-37.0); Mean Corpuscular Hgb 27.7 pg (27.0-31.0); Mean Corpuscular Volume 88.1 fL (80.0-94.0); Mean Platelet Volume 10.8 fL (7.4-10.4); Platelet Count 191 10^3/uL (130-400); Red Blood Cell Count 3.79 10^6/uL (4.70-6.10); Red Cell Dist. Width 16.6 % (11.5-14.5); White Blood Cell Count 4.2 10^3/uL (4.8-10.8)
[2023-12-26] MEDS: TESSALON PERLES 100 MG PO ×2 (06:08→22:10)
[2023-12-26 06:13] LABS: Blood Urea Nitrogen 36 mg/dl (9-20); Calcium 8.1 mg/dl (8.4-10.2); Carbon Dioxide 30 mmol/L (22-30); Chloride 99 mmol/L (98-107); Glucose 94 mg/dl (70-99); Magnesium 1.9 mg/dl (1.6-2.3); Phosphorus 3.6 mg/dl (2.5-4.5); Potassium 3.9 mmol/L (3.5-5.1); Sodium 140 mmol/L (135-145); eGFR 22.96
[2023-12-26] MEDS: ASPIR LOW (ENTERIC COATED) 81 MG PO (09:16)
[2023-12-26] MEDS: ZYLOPRIM 100 MG PO (09:16)
[2023-12-26] MEDS: APRESOLINE 10 MG PO ×2 (09:16→22:02)
[2023-12-26] MEDS: NEURONTIN 100 MG PO ×3 (09:16→22:03)
[2023-12-26] MEDS: LAMICTAL 100 MG PO ×2 (09:16→22:03)
[2023-12-26] MEDS: ZOVIRAX 400 MG PO ×2 (09:46→22:03)
[2023-12-26] MEDS: IMDUR (EXTENDED RELEASE) 30 MG PO (09:46)
[2023-12-26] MEDS: CRESTOR 10 MG PO (09:46)
--- NOTE | 2023-12-26 09:46 | W.CON.NEPH ---
Consultation
-
Date/Time Consultation Requested: 12/25/232201
Date/Time Consultation Performed: 12/26/23914
Requesting Provider: Mohsen Johnson
Performing Provider: Patricia Christianson
Reason for Consultation: ESRD
Medical History
-
Chief Complaint: SOB
History of Present Illness:
73y/o M with PMH significant for ESRD on HD recently started in July 2023 after having RPB, left CW tunneled catheter at [facility] on MWF, HTN on low dose hydralazine, ASCVD on ASA, imdur, CHF and A-Fib on Amiodarone, recurrent pleural effusion
requiring thoracentesis most recently in Oct who presents to ED complaining of chest tightness, shortness of breath . Patient states that he has been gradually becoming SOB - worse with exertion / activity. His symptoms have been severe for the
past two days - prompting him to present to the ED for further evaluation. He denies fever, chills, abdominal pain, nausea vomit, diarrhea, urinary symptoms. today he underwent thoracentesis of 1.8lit . Nephrology was consulted for end-stage
renal disease and HD needs.He c/o dry cough for some time. He reports no issues with HD and normall gets UF of 2-3lit. He follows FR of 48 ounces/day. he eats out side normally.
Past Medical History
ASCVD
Hypertension
Chronic HFrEF
Paroxysmal Atrial Fibrillation
ESRD on HD MWF left CVC
Multiple Myeloma / Amyloidosis
Gout
Anemia of Chronic Disease
Recurrent Left Pleural Effusion
Chemo-Induced Peripheral Neuropathy
Depression
Retroperitoneal Bleeding on Eliquis
Past Surgical History: Other (Left IJ HD Catheter R ACW Port PTCA with Stent (x 4) Bilateral TKA Hernia Repair Right Rotator Cuff Repair (x 2))
Social History
Tobacco: Former Smoker (quit in )
Alcohol: Occasional
Drug: None
Family History
Family History: Not Pertinent
Allergies / Home Medications
Allergy/AdvReac Type Severity Reaction Status Date / Time
atorvastatin Allergy MUSCLE Verified 12/25/23 17:27
CRAMPS
Cephalosporins Allergy kidney Verified 12/25/23 17:27
disease
coconut Allergy vomits Verified 12/25/23 17:27
penicillin V Allergy Vomiting Verified 12/25/23 17:27
pregabalin [From Lyrica] Allergy Tongue Verified 12/25/23 17:27
Swelling
simvastatin Allergy muscle Verified 12/25/23 17:27
cramps
�Medication �Instructions �Recorded �Confirmed �Type
lamotrigine 100 mg tablet 100 mg PO BID Neurological 07/24/19 12/25/23 History
Condition
ezetimibe 10 mg tablet 10 mg PO HS High cholesterol 08/26/19 12/25/23 History
rosuvastatin 10 mg tablet 10 mg PO DAILY High cholesterol 08/26/19 12/25/23 History
aspirin 81 mg tablet,delayed 81 mg PO DAILY Blood clot 08/27/19 12/25/23 History
release prevention/tx
allopurinol 100 mg tablet 100 mg PO DAILY Gout 06/15/20 12/25/23 History
gabapentin 100 mg capsule 100 mg PO TID Pain 09/26/21 12/25/23 History
(Neurontin)
montelukast 10 mg tablet 10 mg PO UD bone pain prevention 09/26/21 12/25/23 History
(Singulair)
acyclovir 400 mg tablet 400 mg PO BID Infection 01/03/23 12/25/23 History
dexamethasone 4 mg tablet 4 mg PO UD Anti-Inflammatory 01/03/23 12/25/23 History
daratumumab 20 mg/mL intravenous 1,800 mg IV QMONTH Cancer 04/20/23 12/25/23 History
solution (Darzalex)
venetoclax 100 mg tablet 200 mg PO DAILY Cancer 04/20/23 12/25/23 History
(Venclexta)
risperidone 0.25 mg tablet 0.25 mg PO HS Mental Health/Anxiety 08/06/23 12/25/23 History
hydralazine 10 mg tablet 10 mg PO TID #90 tabs 08/21/23 12/25/23 Rx
isosorbide mononitrate 30 mg 30 mg PO DAILY HEART CONDITION #0 08/21/23 12/25/23 Rx
tablet,extended release 24 hr tabs
amiodarone 200 mg tablet 100 mg PO SUTUTHSA@0800 12/25/23 12/25/23 History
Review of Systems
-
ROS inquired and found negative other than stated in HPI
All other systems: Negative unless noted
Physical Exam
Vital Signs
Vital Signs
Temp Pulse Resp BP Pulse Ox
98.2 F 80 22 153/87 95
12/26/23 08:30 12/26/23 08:35 12/26/23 08:35 12/26/23 08:35 12/26/23 08:30
Lab Results
WBC 4.2 10^3/uL (4.8-10.8) L 12/26/23 05:27
RBC 3.79 10^6/uL (4.70-6.10) L 12/26/23 05:27
Hgb 10.5 g/dL (13.0-18.0) L 12/26/23 05:27
Hct 33.4 % (39.0-52.0) L 12/26/23 05:27
Plt Count 191 10^3/uL (130-400) 12/26/23 05:27
Sodium 140 mmol/L (135-145) 12/26/23 05:27
Potassium 3.9 mmol/L (3.5-5.1) 12/26/23 05:27
Chloride 99 mmol/L (98-107) 12/26/23 05:27
Carbon Dioxide 30 mmol/L (22-30) 12/26/23 05:27
BUN 36 mg/dl (9-20) H 12/26/23 05:27
Creatinine 2.8 mg/dL (0.7-1.3) H 12/26/23 05:27
eGFR 22.96 12/26/23 05:27
Glucose 94 mg/dl (70-99) 12/26/23 05:27
Calcium 8.1 mg/dl (8.4-10.2) L 12/26/23 05:27
Phosphorus 3.6 mg/dl (2.5-4.5) 12/26/23 05:27
CXR:Albumin 3.1 g/dl (3.5-5.0) L 12/25/23 17:47
CXR:
FINDINGS:
Frontal and lateral radiographs of the chest were obtained.
There is a port catheter in place through right internal jugular access the distal tip of which is at the cavoatrial junction
There is a double-lumen central venous catheter in place through left internal jugular access, the distal tip of which is in the right atrium
There is moderate-large left pleural effusion with probable associated compressive atelectasis at the left lung base
There is small right-sided pleural effusion
IMPRESSION:
There is moderate-large left pleural effusion with probable associated compressive atelectasis at the left lung base
There is small right-sided pleural effusion
Physical Exam
General: Awake, Alert, Oriented, AOx3, No Distress and Nontoxic
HEENT: EOMI, Anicteric, Conjunctivae Clear, Facial Symmetry and Neck Supple
Respiratory: Crackels, Normal Excursion and Nonlabored Respirations
Cardiac: S1/S2 and Regular Rate/Rhythm
Breast: Deferred by me
Abdomen: Soft, Nontender and Nondistended
Musculoskeletal: No Cyanosis and Edema (1+)
Skin: No Rash
Neuro: Nonfocal/Grossly Intact
Psych: Mood/afflect pleasant, Insight/judgement good and Appropriate
Data Reviewed
-
Labs: Labs Reviewed by me and Discussed with Patient
Assessment/Plan
-
Impression:
End-stage renal disease Sunday [facility] unit
Hypertension
Recurrent left pleural effusion with symptomatic shortness of breath on presentation
Anemia
Coronary artery disease with multiple stent
Atrial fibrillation
Left IJ tunneled hemodialysis cath
History of AL amyloidosis/multiple myeloma
History of left inferior renal artery hemorrhage status post postembolization July 2023 resulting in ESRD\\
echo:
EF 45-50%, mod to severe LVH
Plan:
s/p thoracentesis today
plan HD per schedule
UF as much as tolerated
unclear etiology of recurrent plerual effusion, previous CT chest was ok
reviewed strict FR 33 ounces/day and low salt diet
d/w pt in detail
[2023-12-26 09:48] LABS: Troponin I 0.207 ng/ml
--- NOTE | 2023-12-26 12:57 | W.PN.HOSP.TC ---
Today's Communication/Plan
-
monitor vitals
see plan
HD per nephro
IR for thora
trend trops
Assessment / Plan
Assessment / Plan
General: no acute distress
HEENT: Moist mucous membranes, PERRLA and Other (L IJ HD cath in place. Site without bleeding / strikethrough. R ACW Port in place. No erythema / induration.)
Respiratory: Other (Decreased BS at the L base with dullness to percussion - about 1/3 up.)
Cardiac: S1/S2 and Regular Rhythm
GI: Soft, Non Tender, Non Distended and Normal Bowel Sounds
Musculoskeletal: No Clubbing, No Cyanosis and Other (2+ pitting edema at ankles bilaterally.)
Neuro: AO x 3
Psych: No Anxious or Depressed
Recurrent Left Pleural Effusion
SOB secondary to the above
- s/p prior thoracentesis this year (March and October).
- Likely due to hypervolemia / CHF +/- myeloma.
- Not currently hypoxemic - but reports increasing dyspnea, especially for the past two days.
- Volume management on HD.
- IR consulted for repeat thoracentesis.
ESRD on HD
- Stable. Last HD was Sunday - no issues.
- Nephrology evaluation for HD needs during acute stay.
- ? adjustments in volume goals/ dry weight given recurrent effusion?
ASCVD
- Patient complains of chest pain associated with dyspnea for the past 2 days.
- EKG without acute ischemia. he reports feeling better after thora
trend trops; suspect non [place] related
- Troponin with modest elevation - but unchanged from patient's prior values.
- Continue usual CV med regimen.
Chronic HFrEF
- Stable. No LE edema. Re-accumulation of L effusion, presumably on the basis of hypervolemia.
- Volume management on HD as noted above.
- Follow daily weights, I/Os, etc.
Paroxysmal Atrial Fibrillation
- Stable. Continue amiodarone per outpatient schedule.
- No longer on OAC following significant bleeding event from July.
Benign Hypertension
- Stable. Continue usual medications with holding parameters.
Multiple Myeloma / Cardiac Amyloidosis
- Stable. Continue venetoclax.
- Receives Darzalex monthly.
- f/u with Oncology as an outpatient.
DVT Prophylaxis: SCDs,heparin
Code Status: Full
I spent a total of 52 minutes with the patient or on the floor. More than 50% of this time involved counseling and coordination of care.
Anticipated Discharge: 24 - 48 hours
Subjective/Interval History
-
Date of Service: December 26, 2023
denies pain
Objective Data
-
Labs:
Laboratory Results
12/26/23
05:27
WBC 4.2 L
Hgb 10.5 L
Hct 33.4 L
Plt Count 191
Sodium 140
Potassium 3.9
Chloride 99
Carbon Dioxide 30
BUN 36 H
Creatinine 2.8 H
Glucose 94
Calcium 8.1 L
Vital Signs:
Vital Signs
Temp Pulse Resp BP Pulse Ox
98.2 F 81 29 136/73 98
12/26/23 08:30 12/26/23 09:30 12/26/23 09:30 12/26/23 09:16 12/26/23 09:00
--- NOTE | 2023-12-26 14:49 | PTCARENOTE ---
Patient admitted to 2N from ED. VSS. patient 98% on RA. Patient on dialysis. Patient oriented to unit. Call angelo within place.
--- NOTE | 2023-12-26 14:53 | PTCARENOTE ---
Patient on dialysis machine and cannot turn for skin assessment. Will check skin and do a cosign skin assessment when off machine.
--- NOTE | 2023-12-26 15:22 | W.PN.NEPH.HD ---
Assessment
-
pt seen during HF
vitals stable
HD catheter is with poor flows, may need to replace if did not work today
UF as much as toelrated
Progress Note - Hemodialysis
-
Date of Service: December 26, 2023
Duration: 30 minutes and 3 hours
Potassium Bath: 3
Calcium Bath: 2.5
Opti-Dialyzer: 160
Ultrafiltration: Other (2.5-3kg)
Blood Flow: 400
Dialysate Flow: 600
Heparin: no
EPO: no
--- NOTE | 2023-12-26 16:12 | CM ---
Reviewed the chart notes. Patient resides alone in a one story home with two steps to enter. The patient uses a cane with ambulation. No VN/SNF in the past. The patient's pharmacy of choice is the [facility] (Formerly [facility]). The patient
receives HD at the [facility] in [facility]. CM continues to be available to patient/family and is monitoring medical plan for needs at discharge.
Plan: Discharge plans will depend on the patient's progress.
[facility] in [place] [phone], .
[2023-12-26] MEDS: APRESOLINE PO (16:25)
[2023-12-26] MEDS: HEPARIN 4200 UNITS INTRACATH (18:51)
[2023-12-26 21:08] LABS: Total Protein 4.8 g/dl (6.3-8.2)
[2023-12-26 21:14] LABS: Troponin I 0.185 ng/ml
[2023-12-26 21:30] LABS: LDH 228 U/L (120-246)
[2023-12-26] MEDS: RISPERDAL 0.25 MG PO (22:03)
[2023-12-26] MEDS: ZETIA 10 MG PO (22:03)
[2023-12-26] MEDS: HEPARIN 5000 UNITS SC (22:03)
[2023-12-27] VITALS (8 sets, daily range): BP systolic 75–141; BP diastolic 59–73; PULSE 73–74; O2SAT 96–98; BMI 21.7
[2023-12-27 03:11] LABS: % Basophils 1.3 % (0-2); % Immature Granulocytes 0.2 % (0-0.5); % Lymphocytes 9.5 % (20.5-51.1); % Monocytes 10.8 % (1.7-9.3); % Neutrophils 78.2 % (42.2-75.2); Absolute Basophils 0.1 10^3/uL (0-0.2); Absolute Lymphocytes 0.4 10^3/uL (1.2-3.4); Absolute Monocytes 0.5 10^3/uL (0.1-0.6); Absolute Neutrophils 3.6 10^3/uL (1.4-6.5); Hematocrit 36.1 % (39.0-52.0); Hemoglobin 11.3 g/dL (13.0-18.0); Mean Corp Hgb Conc. 31.3 g/dL (33.0-37.0); Mean Corpuscular Hgb 28.5 pg (27.0-31.0); Mean Corpuscular Volume 90.9 fL (80.0-94.0); Mean Platelet Volume 10.7 fL (7.4-10.4); Nucleated Red Blood Cells % 0 % (-); Platelet Count 164 10^3/uL (130-400); Red Blood Cell Count 3.97 10^6/uL (4.70-6.10); Red Cell Dist. Width 16.1 % (11.5-14.5); White Blood Cell Count 4.7 10^3/uL (4.8-10.8)
[2023-12-27 03:18] LABS: Blood Urea Nitrogen 23 mg/dl (9-20); Carbon Dioxide 28 mmol/L (22-30); Chloride 100 mmol/L (98-107); Glucose 111 mg/dl (70-99); Potassium 4.1 mmol/L (3.5-5.1); Sodium 139 mmol/L (135-145); eGFR 34.38
[2023-12-27 03:42] LABS: Troponin I 0.185 ng/ml
[2023-12-27] MEDS: TESSALON PERLES 100 MG PO (04:36)
[2023-12-27] MEDS: TYLENOL 650 MG PO (04:41)
[2023-12-27 08:46] LABS: Glucose - Point of Care 67 mg/dl (70-99)
[2023-12-27] MEDS: HEPARIN 5000 UNITS SC (09:04)
[2023-12-27] MEDS: CRESTOR 10 MG PO (09:09)
[2023-12-27] MEDS: ZOVIRAX 400 MG PO (09:09)
[2023-12-27] MEDS: APRESOLINE 10 MG PO ×2 (09:10→16:06)
[2023-12-27] MEDS: LAMICTAL 100 MG PO (09:10)
[2023-12-27] MEDS: ASPIR LOW (ENTERIC COATED) 81 MG PO (09:10)
[2023-12-27] MEDS: ZYLOPRIM 100 MG PO (09:10)
[2023-12-27] MEDS: IMDUR (EXTENDED RELEASE) 30 MG PO (09:10)
[2023-12-27] MEDS: PACERONE 100 MG PO (09:11)
[2023-12-27] MEDS: NEURONTIN 100 MG PO ×2 (09:12→16:06)
[2023-12-27 09:18] LABS: Glucose - Point of Care 76 mg/dl (70-99)
--- NOTE | 2023-12-27 10:29 | CM ---
Addendum entered by Cristina Greenberg RN 12/27/23 15:55:
Plan: Home with no needs identified.
Original Note:
Reviewed the chart notes. Yesterday the patient had an ultrasound-guided thoracentesis, yielding 1800 cc of clear yellow pleural fluid. CM continues to be available to patient/family and is monitoring medical plan for needs at discharge.
Plan: Discharge plans will depend on the patient's progress.
--- NOTE | 2023-12-27 11:22 | W.PN.HOSP.TC ---
Addendum entered and electronically signed by Rex Toledo MD 12/27/23 13:36:
Time of discharge 38 minutes
Addendum entered and electronically signed by Rex Toledo MD 12/27/23 11:37:
Spoke with nephrology. Patient is having difficulty getting HD though his current HD catheter. Plan for HD catheter change today by IR. Patient can likely be discharged after catheter change.
Original Note:
Today's Communication/Plan
-
monitor vitals
see plan
HD per nephrology
PT/OT
possible dc today
Assessment / Plan
Assessment / Plan
General: no acute distress
HEENT: Moist mucous membranes, PERRLA and Other (L IJ HD cath in place. Site without bleeding / strikethrough. R ACW Port in place. No erythema / induration.)
Respiratory: Other (Decreased BS at the L base with dullness to percussion - about 1/3 up.)
Cardiac: S1/S2 and Regular Rhythm
GI: Soft, Non Tender, Non Distended and Normal Bowel Sounds
Musculoskeletal: No Clubbing, No Cyanosis and Other (2+ pitting edema at ankles bilaterally.)
Neuro: AO x 3
Psych: No Anxious or Depressed
Recurrent Left Pleural Effusion
SOB secondary to the above
- s/p prior thoracentesis this year (March and October).
- Likely due to hypervolemia / CHF +/- myeloma.
- Not currently hypoxemic - reports now feeling better
- Volume management on HD.
- s/p thoracentesis 12/25; apparently no labs were sent. patient currently feeling better. previous studies have been negative. Advised patient that if he ever needs thoracentesis again then will get studies again. advised him to follow up with
pulmonary for plueral effusion
ESRD on HD
- Stable. Last HD was Sunday - no issues.
- Nephrology evaluation for HD needs during acute stay.
- ? adjustments in volume goals/ dry weight given recurrent effusion?
ASCVD
- Patient complains of chest pain associated with dyspnea for the past 2 days.
- EKG without acute ischemia. he reports feeling better after thora
trend trops; suspect non CO related
- Troponin with modest elevation - but unchanged from patient's prior values.
- Continue usual CV med regimen.
Chronic HFrEF
- Stable. No LE edema. Re-accumulation of L effusion, presumably on the basis of hypervolemia.
- Volume management on HD as noted above.
- Follow daily weights, I/Os, etc.
Paroxysmal Atrial Fibrillation
- Stable. Continue amiodarone per outpatient schedule.
- No longer on OAC following significant bleeding event from July.
Benign Hypertension
- Stable. Continue usual medications with holding parameters.
Multiple Myeloma / Cardiac Amyloidosis
- Stable. Continue venetoclax.
- Receives Darzalex monthly.
- f/u with Oncology as an outpatient.
DVT Prophylaxis: SCDs,heparin
Code Status: Full
Anticipated Discharge: Today
Subjective/Interval History
-
Date of Service: December 27, 2023
denies pain
Objective Data
-
Labs:
Laboratory Results
12/27/23
02:50
WBC 4.7 L
Hgb 11.3 L
Hct 36.1 L
Plt Count 164
Sodium 139
Potassium 4.1
Chloride 100
Carbon Dioxide 28
BUN 23 H
Creatinine 2.0 H
Glucose 111 H
Calcium 8.0 L
Vital Signs:
Vital Signs
Temp Pulse Resp BP Pulse Ox
97.7 F 73 18 139/65 98
12/27/23 08:01 12/27/23 09:11 12/27/23 08:01 12/27/23 09:11 12/27/23 08:01
I&O
12/26/23 12/27/23 12/28/23
06:59 06:59 06:59
Intake Total 440 / 440
Balance 440 / 440
--- NOTE | 2023-12-27 13:36 | W.DCSUMMARY ---
Discharge Summary
Discharge Data
Date of Admission: 12/25/23
Date of Discharge: 12/27/23
-
Pending Results: No
Hospital Course
73-year-old male with past medical history of pleural effusion, ESRD on hemodialysis, CHF, paroxysmal atrial fibrillation, benign hypertension, multiple myeloma/cardiac amyloidosis came to the hospital with shortness of breath known to have
recurrent left pleural effusion. Patient underwent thoracentesis however no thoracentesis labs were sent. Patient symptoms improved after thoracentesis and hemodialysis for which nephrology was following. He was instructed to follow-up with
pulmonary closely outpatient due to recurrent pleural effusion. He also had poor flow with his current HD catheter so IR was involved to change his HD catheter prior to discharge. Since his symptoms along with his breathing continue to improve, he
was then discharged home with instructions to follow-up with all his physicians outpatient.
Discharge Plan
-
Patient Disposition: Home (Routine Discharge)
Discharge Diagnosis/Procedures: Recurrent Left Pleural Effusion
ESRD on HD
non functioning HD catheter
Diet: As tolerated
Activity: As tolerated
Driving Restrictions: As prior to admission
Bathing Restrictions: None
Activity Restrictions/Additional Instructions:
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
Referrals:
Andrei Hightower MD [Active] - in two to three weeks
Bang Lambert III, DO [Family Provider] - in less than 1 week
Prescriptions:
New
benzonatate 100 mg Capsule
100 mg PO TIDPRN PRN (Reason: cough) Qty: 10 0RF
Continued
lamotrigine 100 MG tablet
100 mg PO BID
ezetimibe 10 MG tablet
10 mg PO HS
rosuvastatin 10 MG tablet
10 mg PO DAILY
aspirin 81 MG tablet,delayed release (DR/EC)
81 mg PO DAILY
allopurinol 100 MG tablet
100 mg PO DAILY
montelukast [Singulair] 10 mg Tablet
10 mg PO UD
Rx Instructions:
take the night before, night of, and night after Darzalex infusion.
gabapentin [Neurontin] 100 mg Capsule
100 mg PO TID
acyclovir 400 mg Tablet
400 mg PO BID
dexamethasone 4 mg Tablet
4 mg PO UD
Rx Instructions:
take the day after Darzalex infusion and for 2 days after.
Darzalex 20 mg/mL Solution
1,800 mg IV QMONTH
Venclexta 100 mg Tablet
200 mg PO DAILY
risperidone 0.25 mg Tablet
0.25 mg PO HS
hydralazine 10 mg Tablet
10 mg PO TID Qty: 90 0RF
isosorbide mononitrate 30 mg Tablet Extended Release 24 Hr
30 mg PO DAILY Qty: 0 0RF
amiodarone 200 mg Tablet
100 mg PO SUTUTHSA@0800
Discharge Orders:
Discharge Patient (As Directed); Ordered 12/27/23
Ordered By: Rex Toledo
Discharge Date and Time
Discharge Date/Time: 12/27/23 17:52
Print Language: URDU
--- NOTE | 2023-12-27 14:08 | W.PN.NEPH.PH ---
Today's Communication / Plan
-
exchange HD catheter
Assessment/Plan
-
Impression:
End-stage renal disease Sunday [facility] unit
Hypertension
Recurrent left pleural effusion with symptomatic shortness of breath on presentation
Anemia
Coronary artery disease with multiple stent
Atrial fibrillation
Left IJ tunneled hemodialysis cath
History of AL amyloidosis/multiple myeloma
History of left inferior renal artery hemorrhage status post postembolization July 2023 resulting in ESRD\\
echo:
EF 45-50%, mod to severe LVH
Plan:
s/p thoracentesis 12/25
completed HD yesterday but with poor flows
plan to exchange catheter today
wt lowered
unclear etiology of recurrent plerual effusion, previous CT chest was ok
reviewed strict FR 33 ounces/day and low salt diet
d/w pt
-
-
Date of Service: December 27, 2023
CC / HPI / ROS
-
Chief Complaint:
ESRD
History of Present Illness:
s?p HD yestreday but with poor flows
BP stable,. wt decreased
Review of Systems:
no cp , sob improved
no fever
Labs
-
Labs:
WBC 4.7 10^3/uL (4.8-10.8) L 12/27/23 02:50
RBC 3.97 10^6/uL (4.70-6.10) L 12/27/23 02:50
Hgb 11.3 g/dL (13.0-18.0) L 12/27/23 02:50
Hct 36.1 % (39.0-52.0) L 12/27/23 02:50
Plt Count 164 10^3/uL (130-400) 12/27/23 02:50
Sodium 139 mmol/L (135-145) 12/27/23 02:50
Potassium 4.1 mmol/L (3.5-5.1) 12/27/23 02:50
Chloride 100 mmol/L (98-107) 12/27/23 02:50
Carbon Dioxide 28 mmol/L (22-30) 12/27/23 02:50
BUN 23 mg/dl (9-20) H 12/27/23 02:50
Creatinine 2.0 mg/dL (0.7-1.3) H 12/27/23 02:50
eGFR 34.38 12/27/23 02:50
Glucose 111 mg/dl (70-99) H 12/27/23 02:50
Calcium 8.0 mg/dl (8.4-10.2) L 12/27/23 02:50
Phosphorus 3.6 mg/dl (2.5-4.5) 12/26/23 05:27
Albumin 3.1 g/dl (3.5-5.0) L 12/25/23 17:47
Physical Exam
-
Vital Signs:
Vital Signs
Temp Pulse Resp BP Pulse Ox
97.7 F 75 18 131/59 96
12/27/23 13:32 12/27/23 13:32 12/27/23 13:32 12/27/23 13:32 12/27/23 13:32
Extremity Edema:: +1: Bilateral:
Viera Catheter: No
Other Findings::
skin no rash
no acute distress
able to walk with cane , grossly non focal
== END 2023-12-27 17:52 | disposition home or self-care (01) | DRG 291 ==
LOC: 2 NORTH 21:31
PROVIDERS: Radiology Diagnostic Radiology; ADMITTING PHYSICIAN Hospitalist; ATTENDING PHYSICIAN Internal Medicine; EMERGENCY PHYSICIAN Student in an Organized Health Care Education/Training Program; FAMILY PHYSICIAN Internal Medicine; OTHER PHYSICIAN Internal Medicine
PROC: 0W9B3ZZ Drainage of Left Pleural Cavity, Percutaneous Approach (ICD-10-PCS; 2023-12-26)
PROC: 0J2TXYZ Change Other Device in Trunk Subcutaneous Tissue and Fascia, External Approach (ICD-10-PCS; 2023-12-27)
DX: I13.2 Hypertensive heart and chronic kidney disease with heart failure and with stage 5 chronic kidney disease, or end stage renal disease (principal); N18.6 End stage renal disease; T82.41XA Breakdown (mechanical) of vascular dialysis catheter, initial encounter; C90.00 Multiple myeloma not having achieved remission; E85.4 Organ-limited amyloidosis; J98.11 Atelectasis; I50.22 Chronic systolic (congestive) heart failure; I43 Cardiomyopathy in diseases classified elsewhere; Z11.52 Encounter for screening for COVID-19; Z87.891 Personal history of nicotine dependence; I25.10 Atherosclerotic heart disease of native coronary artery without angina pectoris; Z95.5 Presence of coronary angioplasty implant and graft; I48.0 Paroxysmal atrial fibrillation; Z99.2 Dependence on renal dialysis; Y71.2 Prosthetic and other implants, materials and accessory cardiovascular devices associated with adverse incidents
CPT/HCPCS: 32555; 36581; 36595; 71045; 71046; 75901; 77001; 80048; 80053; 82962; 83615; 83735; 84100; 84155; 84484; 85025; 85027; 87070; 87502; 87811; 93005; 97162; 97166; C1725; C1769; G0257; P9047

== ENCOUNTER 2023-12-30 09:27 | Inpatient (IN) | payer MEDICARE, SELFPAY ==
[2023-12-29] VITALS (8 sets, daily range): BP systolic 88–118; BP diastolic 43–68; BMI 22.5
--- NOTE | 2023-12-29 19:42 | ED.GENMED ---
History of Present Illness
General
Chief Complaint: Breathing Problem
Source: patient
Exam Limitations: none
Time Seen by Provider: 12/29/23 19:31
History of Present Illness
History of Present Illness:
73-year-old male Sunday dialysis patient presents with recurrent shortness of breath. He was here about 4 days ago had a recurrent pleural effusion on the left lung and had thoracentesis. He had 2 L drained. He states his
shortness of breath is returned. With any minimal exertion he feels very short of breath. He denies chest pain or fever. He had a full session of dialysis yesterday. No other complaints at this time
Past History
Past History
ED Past Medical History: Arrthythmia (Atrial fib), CAD, Cancer (multiple myeloma, Skin CA), CHF, HTN, Hypercholesterolemia, MS, Renal failure (Dialysis M-W-F), Psychiatric (Depression) and Other (chronic renal disease, amyloidosis, Syncope, Renal
calculus, Lymes, )
ED Past Surgical History: Cardiac (Stents X 4), Orthopedic (Cancer removed from left shoulder, Left knee meniscus, Right rotator cuff, , Bilateral knee replacement) and Other (Hernia repair, )
Social History
Tobacco: Former smoker
Alcohol: Occasional
Drug: None
Personal:
Living: alone
Employment: Not employed
Phy Exam
Physical Exam
Physical Exam:
General: Well-appearing male no acute respiratory
HEENT: Normocephalic atraumatic
Heart: Regular rate and rhythm
Lungs: Diminished left base otherwise clear
Abdomen soft nontender
Extremities: No cyanosis or edema
Scores
Heart Failure Risk
Heart Failure Risk Score: Not Applicable
Course
Orders/Labs/Results
Orders:
Orders
12/29/23 19:40
CR Chest - 2 Views Urgent
Comment:
Reason For Exam: sob
12/29/23 21:47
Complete Blood Count/With Diff Urgent
Comprehensive Metabolic Panel Urgent
Abnormal Lab Results
12/29/23
21:47
WBC 4.7 L 10^3/uL
(4.8-10.8)
RBC 3.91 L 10^6/uL
(4.70-6.10)
Hgb 11.1 L g/dL
(13.0-18.0)
Hct 35.1 L %
(39.0-52.0)
MCHC 31.6 L g/dL
(33.0-37.0)
RDW 16.3 H %
(11.5-14.5)
MPV 10.8 H fL
(7.4-10.4)
Absolute Lymphs (auto) 0.2 L 10^3/uL
(1.2-3.4)
Neutrophils % 91.6 H %
(42.2-75.2)
Lymphocytes % 3.8 L %
(20.5-51.1)
12/29/23 21:47
Vital Signs
Initial and Last Documented VS:
Initial Vital Signs
Temp Pulse Resp BP Pulse Ox
98.1 F 74 20 88/43 97
12/29/23 19:13 12/29/23 19:13 12/29/23 19:13 12/29/23 19:13 12/29/23 19:13
Last Documented Vital Signs
Temp Pulse Resp BP Pulse Ox
98.1 F 64 23 107/59 96
12/29/23 19:13 12/29/23 21:45 12/29/23 21:45 12/29/23 21:00 12/29/23 21:30
MDM/Problems Addressed
Differential Diagnosis Includes:
Patient presents with shortness of breath. He has recurrent pleural effusions. Most recently had thoracentesis performed about 4 days ago. He had a full session of dialysis yesterday. Does not appear to be volume overloaded currently. Will
check labs and chest x-ray. Currently on room air he is 90 to 91%
*Critical Care Note
Total Time (30-74mins, 75-104mins- exclusive of procedures): Not Applicable
Update Note
Update Note:
Patient has large pleural effusion on the left with small pneumothorax. The pneumothorax is smaller than prior x-rays. Patient is quite symptomatic with minimal exertion due to his recurrent pleural effusion. Will admit to hospital. He likely
needs thoracentesis
ED Attending Note
-
Portions of this chart may have been created with voice recognition software.� Occasional wrong word or��sound alike� substitutions may have occurred due to the inherent limitations of voice recognition software.
Discharge Plan
Departure
Patient Disposition: Admit
Date of Disposition: 12/29/23
Time of Disposition: 22:01
Admit to: Telemetry
Presentation/result/management discussed w/ accepting MD/DO: Hospitalist
Discharge Problem:
Pleural effusion
Prescriptions:
No Action
lamotrigine 100 MG tablet
100 mg PO BID
ezetimibe 10 MG tablet
10 mg PO HS
rosuvastatin 10 MG tablet
10 mg PO DAILY
aspirin 81 MG tablet,delayed release (DR/EC)
81 mg PO DAILY
allopurinol 100 MG tablet
100 mg PO DAILY
montelukast [Singulair] 10 mg Tablet
10 mg PO UD
Rx Instructions:
take the night before, night of, and night after Darzalex infusion.
gabapentin [Neurontin] 100 mg Capsule
100 mg PO TID
acyclovir 400 mg Tablet
400 mg PO BID
dexamethasone 4 mg Tablet
4 mg PO UD
Rx Instructions:
take the day after Darzalex infusion and for 2 days after.
Darzalex 20 mg/mL Solution
1,800 mg IV QMONTH
Venclexta 100 mg Tablet
200 mg PO DAILY
risperidone 0.25 mg Tablet
0.25 mg PO HS
hydralazine 10 mg Tablet
10 mg PO TID Qty: 90 0RF
isosorbide mononitrate 30 mg Tablet Extended Release 24 Hr
30 mg PO DAILY Qty: 0 0RF
amiodarone 200 mg Tablet
100 mg PO SUTUTHSA@0800
benzonatate 100 mg Capsule
100 mg PO TIDPRN PRN (Reason: cough) Qty: 10 0RF
Referrals:
Bang Lambert III, DO [Family Provider] -
Interventions
Interventions:
*Risk Screen - Suicide Last Done: 12/29/23 19:08
*General Assessment Last Done: 12/29/23 19:41
*Neglect/Abuse Screening Last Done: 12/29/23 19:17
ED- Fall Risk Assessment Last Done: 12/29/23 19:41
*ED COVID-19 Vaccine History Last Done: 12/29/23 19:41
ED- Cardiac Assessment Last Done: 12/29/23 19:48
ED- Pulmonary Assessment Last Done: 12/29/23 19:48
Discharge Date and Time
Print Language: CROATIAN
[2023-12-29 21:55] LABS: % Immature Granulocytes 0.4 % (0-0.5); % Lymphocytes 3.8 % (20.5-51.1); % Monocytes 4.2 % (1.7-9.3); % Neutrophils 91.6 % (42.2-75.2); Absolute Lymphocytes 0.2 10^3/uL (1.2-3.4); Absolute Monocytes 0.2 10^3/uL (0.1-0.6); Absolute Neutrophils 4.3 10^3/uL (1.4-6.5); Hematocrit 35.1 % (39.0-52.0); Hemoglobin 11.1 g/dL (13.0-18.0); Mean Corp Hgb Conc. 31.6 g/dL (33.0-37.0); Mean Corpuscular Hgb 28.4 pg (27.0-31.0); Mean Corpuscular Volume 89.8 fL (80.0-94.0); Mean Platelet Volume 10.8 fL (7.4-10.4); Nucleated Red Blood Cells % 0 % (-); Platelet Count 162 10^3/uL (130-400); Red Blood Cell Count 3.91 10^6/uL (4.70-6.10); Red Cell Dist. Width 16.3 % (11.5-14.5); White Blood Cell Count 4.7 10^3/uL (4.8-10.8)
[2023-12-29 22:06] LABS: Albumin 2.9 g/dl (3.5-5.0)
[2023-12-29 22:24] LABS: ALT (SGPT) 14 U/L (0-50); AST (SGOT) 26 U/L (17-59); Alkaline Phosphatase 121 U/L (38-126); Blood Urea Nitrogen 28 mg/dl (9-20); Calcium 8.5 mg/dl (8.4-10.2); Carbon Dioxide 30 mmol/L (22-30); Chloride 96 mmol/L (98-107); Estimated Creatinine Clearance 26 ml/min; Glucose 125 mg/dl (70-99); Potassium 4.2 mmol/L (3.5-5.1); Sodium 134 mmol/L (135-145); Total Bilirubin 0.4 mg/dl (0.2-1.3); Total Protein 5.1 g/dl (6.3-8.2); eGFR 25.09
--- NOTE | 2023-12-29 23:04 | HPS.HSE ---
Family Physician
-
Family Physician: Bang Lambert
Chief Complaint
-
Shortness of breath
History of Present Illness
This is a 73-year-old male with a past medical history of end-stage renal disease on dialysis Sunday, hypertension, atrial fibrillation, history of multiple myeloma, recurrent pleural effusions for the last 2 years who presents to
the emergency department with acute worsening of his shortness of breath today.
Patient was admitted to very recently for similar symptoms. He had bilateral pleural effusions with a hydropneumothorax on the left. He had 1.8 L left sided thoracenteses with improvement in his symptoms. He also had a TDC exchange with
improvement in catheter function. He also had dialysis during that admission and his last dialysis was yesterday Sunday with approximately 2 L UF. Patient returns to the emergency department complaining of severe dyspnea on exertion even after his
dialysis. He reports this is similar to his presentation on arrival the last time. He denies having any chest pain. He denies having any palpitations. He he has a persistent minimally productive cough. He denies having fevers or chills.
In the ED he is not hypoxic he was satting 99% on room air. Blood pressure was 107/60 with a pulse of 64. He was afebrile. His chest x-ray shows a left-sided hydropneumothorax with increased proportion of pleural effusion and less of the
pneumothorax. There is decreased right-sided pleural effusion.
Medical History
Past Medical History
Past Medical History: Reports Arrhythmia (Atrial fibrillation)
Additional Past Medical History:
Multiple myeloma
Hyperlipidemia
Hypertension
Recurrent pleural effusion
Past Surgical History: Reports Orthopedic
Social History
Tobacco: Former Smoker
Alcohol: None
Drug: None
Personal: Single
Living: Alone
Employment: Not Employed
Family History
Family History: Not pertinent
Allergies / Home Medications
Allergies reflects when Allergies were last updated in [employer].
Home Medications with original date entered in [employer]
Allergy/Medication List:
Allergies
Allergy/AdvReac Type Severity Reaction Status Date / Time
atorvastatin Allergy MUSCLE Verified 12/29/23 19:08
CRAMPS
Cephalosporins Allergy kidney Verified 12/29/23 19:08
disease
coconut Allergy vomits Verified 12/29/23 19:08
penicillin V Allergy Vomiting Verified 12/29/23 19:08
pregabalin [From Lyrica] Allergy Tongue Verified 12/29/23 19:08
Swelling
simvastatin Allergy muscle Verified 12/29/23 19:08
cramps
Home Medications
lamotrigine 100 mg tablet 100 mg PO BID Neurological Condition 07/24/19
ezetimibe 10 mg tablet 10 mg PO HS High cholesterol 08/26/19
rosuvastatin 10 mg tablet 10 mg PO DAILY High cholesterol 08/26/19
aspirin 81 mg tablet,delayed release 81 mg PO DAILY Blood clot prevention/tx 08/27/19
allopurinol 100 mg tablet 100 mg PO DAILY Gout 06/15/20
gabapentin 100 mg capsule (Neurontin) 100 mg PO TID Pain 09/26/21
montelukast 10 mg tablet (Singulair) 10 mg PO UD bone pain prevention 09/26/21
acyclovir 400 mg tablet 400 mg PO BID Infection 01/03/23
dexamethasone 4 mg tablet 4 mg PO UD Anti-Inflammatory 01/03/23
daratumumab 20 mg/mL intravenous solution (Darzalex) 1,800 mg IV QMONTH Cancer 04/20/23
venetoclax 100 mg tablet (Venclexta) 200 mg PO DAILY Cancer 04/20/23
risperidone 0.25 mg tablet 0.25 mg PO HS Mental Health/Anxiety 08/06/23
hydralazine 10 mg tablet 10 mg PO TID #90 tabs 08/21/23
isosorbide mononitrate 30 mg tablet,extended release 24 hr 30 mg PO DAILY HEART CONDITION #0 tabs 08/21/23
amiodarone 200 mg tablet 100 mg PO SUTUTHSA@0800 12/25/23
benzonatate 100 mg capsule 100 mg PO TIDPRN PRN cough #10 caps 12/27/23
Review of Systems
-
History Source: Patient
Constitutional: Reports No Symptoms
EENT: Reports No Symptoms
Respiratory: Reports Cough and Trouble Breathing
Cardiac: Reports No Symptoms
Abdomen/GI: Reports No Symptoms
: Reports No Symptoms
Musculoskeletal: Reports No Symptoms
Skin: Reports No Symptoms
Neurological: Reports No Symptoms
Endocrine: Reports No Symptoms
Hematologic/Lymphatic: Reports No Symptoms
Psych: Reports No Symptoms
Physical Exam
Vital Signs
Vital Signs
Temp Pulse Resp BP Pulse Ox
98.1 F 64 23 107/59 96
12/29/23 19:13 12/29/23 21:45 12/29/23 21:45 12/29/23 21:00 12/29/23 21:30
Physical Exam
General: No Apparent Distress and Appears Chronically Ill
HEENT: NormoCephalic, Anicteric, Moist mucous membranes and Atraumatic
Respiratory: Clear
Cardiac: S1/S2 and Irregular Rhythm
Breast: Deferred by me
GI: Soft, Non Tender, Non Distended and Normal Bowel Sounds
Rectal: Deferred by Provider
Genito-urinary: Deferred by me
Musculoskeletal: No Clubbing, No Cyanosis and No Edema
Skin: Warm
Neuro: AO x 3
Hematologic/Lymphatic: No Lymphadenopathy
Psych: Calm
Laboratory Results
-
12/29/23 21:47
12/29/23 21:47
Laboratory Results
Total Bilirubin 0.4 mg/dl (0.2-1.3) 12/29/23 21:47
AST 26 U/L (17-59) 12/29/23 21:47
ALT 14 U/L (0-50) 12/29/23 21:47
Alkaline Phosphatase 121 U/L (38-126) 12/29/23 21:47
Data Reviewed
-
Diagnostic Radiology: Image Personally Visualized and interpreted and Report Reviewed by me
Lab Data: Labs Reviewed by me
Old Records: Reviewed
Impression/Plan
-
IMPRESSION:
Patient with recurrent pleural effusion was recently admitted for shortness of breath and pleural effusions found to have recurrent left sided hydropneumothorax, s/p 1.8 L thoracentesis, with improvement in symptoms. He also had dialysis during
admission then again on Sunday after discharge. He comes complaining of dyspnea on exertion. He is not hypoxic and has no increased work of breathing at rest. His pneumo is improved but appears to have reaccumulated the pleural effusion on the
left rather rapidly. No pulmonary edema. No chest pain.
PLAN:
1. Pleural effusion - No respiratory distress and does not require supplemental oxygen. Recurrent effusions thought to be cardiogenic. He is pending outpatient pulmonary evaluation.
- admit to med/surg
- pulmonary consult
- IR consult for non-emergent thoracentesis
- obtain labs for light's criteria
2. ESRD - Patient with functioning left sided TDC after catheter exchange. Last HD Sunday. Next HD sunday. No indication for acute treatment
- renal diet
- nephrology consult in am for HD sunday
- fluid restriction
3. HF w/ reduced EF, cardiac amyloidosis - No indication for acute exacerbation
- fluid restriction as above
- continue imdur
4. MM
- continue patients Venclexta
5. AFIB
- off apixaban and not on any anticoagulation
- currently rate is well controlled on amio, continue
DVT - PPX heparin sq
Code status - full code
[2023-12-30] VITALS: BP 109/58
[2023-12-30 00:27] VITALS: BP 124/64; BMI 21.6
[2023-12-30] MEDS: ZETIA 10 MG PO ×2 (01:35→23:09)
[2023-12-30] MEDS: TESSALON PERLES 100 MG PO ×2 (01:35→08:22)
[2023-12-30] MEDS: LAMICTAL 100 MG PO ×3 (01:35→20:35)
[2023-12-30] MEDS: NEURONTIN 100 MG PO ×4 (01:36→23:09)
[2023-12-30] MEDS: RISPERDAL 0.25 MG PO ×2 (01:36→23:08)
--- NOTE | 2023-12-30 01:40 | PTCARENOTE ---
pt arrived to unit via stretcher and ambulated to his bed with the assistance of a cane. Pt assessed and oriented to unit. VSS. Care ongoing.
[2023-12-30 07:23] VITALS: BP 124/60
[2023-12-30] MEDS: APRESOLINE 10 MG PO (08:11)
[2023-12-30] MEDS: ZYLOPRIM 100 MG PO (08:13)
[2023-12-30] MEDS: IMDUR (EXTENDED RELEASE) 30 MG PO (08:13)
[2023-12-30] MEDS: ASPIR LOW (ENTERIC COATED) 81 MG PO (08:13)
[2023-12-30] MEDS: CRESTOR 10 MG PO (08:13)
[2023-12-30] MEDS: ZOVIRAX 400 MG PO ×2 (08:13→20:34)
[2023-12-30] MEDS: PACERONE 100 MG PO (08:14)
[2023-12-30] MEDS: HEPARIN 5000 UNITS SC ×2 (08:15→20:34)
[2023-12-30 08:25] LABS: LDH 260 U/L (120-246); Total Protein 4.8 g/dl (6.3-8.2)
--- NOTE | 2023-12-30 09:02 | W.PN.HOSP.TC ---
Today's Communication/Plan
-
Thora tomorrow
Pulm consult
Assessment / Plan
Assessment / Plan
Assessment:
Recurrent Left Pleural Effusion, likely from hypervolemia / CHF +/- myeloma.
- s/p thoracentesis 12/25 but re-accumulated rapidly
- repeat thora with labs tomorrow
- Pulm consulted
ESRD on HD
- Nephrology consulted
ASCVD
- no chest pain
- Continue usual CV med regimen.
Chronic HFrEF
- Volume management on HD as noted above.
- Follow daily weights, I/Os, etc.
Paroxysmal Atrial Fibrillation
- Stable. Continue amiodarone per outpatient schedule.
- No longer on OAC following significant bleeding event from July.
Benign Hypertension
- Stable. Continue usual medications with holding parameters.
Multiple Myeloma / Cardiac Amyloidosis
- Stable. Continue venetoclax.
- Receives Darzalex monthly.
- f/u with Oncology as an outpatient.
DVT Prophylaxis: SC Heparin
Code Status: Full
Anticipated Discharge: > 48 hours
Subjective/Interval History
-
Date of Service: December 30, 2023
denies any sob, or chest pain
Objective Data
-
Labs:
Laboratory Results
12/29/23
21:47
WBC 4.7 L
Hgb 11.1 L
Hct 35.1 L
Plt Count 162
Sodium 134 L
Potassium 4.2
Chloride 96 L
Carbon Dioxide 30
BUN 28 H
Creatinine 2.6 H
Glucose 125 H
Calcium 8.5
Total Bilirubin 0.4
AST 26
ALT 14
Alkaline Phosphatase 121
Vital Signs:
Vital Signs
Temp Pulse Resp BP Pulse Ox
98.0 F 66 18 124/60 97
12/30/23 07:23 12/30/23 08:14 12/30/23 07:23 12/30/23 08:14 12/30/23 07:23
I&O
12/29/23 12/30/23 12/31/23
06:59 06:59 06:59
Intake Total 120 / 120
Balance 120 / 120
Physical Exam
-
General: No Apparent Distress
HEENT: Normocephalic and Atraumatic
Respiratory: Decreased Breath Sounds (Left bases); Negative Wheezes
Cardiac: Regular Rhythm and S1/S2
GI: Soft and Nondistended
Genito-urinary: No Costovertebral Tender
Musculoskeletal: No Edema
Neuro: AO x 3
Psych: Calm
Data Reviewed
-
Total Time Spent with Patient (in minutes): 41
Labs: Labs Reviewed by me
--- NOTE | 2023-12-30 10:52 | W.CON.NEPH ---
Consultation
-
Date/Time Consultation Requested: 12/30/2023 9 AM
Date/Time Consultation Performed: 12/30/2019 4:10 AM
Requesting Provider: Dr. Morales
Performing Provider: Dr. Perdue
Reason for Consultation: ESRD
Medical History
-
Chief Complaint: SOB
History of Present Illness:
73y/o M with ESRD on HD recently started in July 2023. He has a left IJ tunneled catheter and receives dialysis at [facility] on MWF, HTN on a multidrug regimen, ASCVD on ASA, imdur, recurrent pleural effusion requiring thoracentesis he was in
the hospital just last week over a 2-day time span for shortness of breath. He underwent thoracentesis of his left side with some improvement. His dialysis catheter was exchanged due to poor flows. He was then discharged. He said he received his
usual dialysis treatment as outpatient unit on Sunday and this was without difficulty. However he reports worsening shortness of breath particular with exertion. He has no issues when he is inactive.
Past Medical History
ASCVD
Hypertension
Chronic HFrEF
Paroxysmal Atrial Fibrillation
ESRD on HD MWF left CVC
Multiple Myeloma / Amyloidosis
Gout
Anemia of Chronic Disease
Recurrent Left Pleural Effusion
Chemo-Induced Peripheral Neuropathy
Depression
Retroperitoneal Bleeding on Eliquis
Past Surgical History: Other (Left IJ HD Catheter R ACW Port PTCA with Stent (x 4) Bilateral TKA Hernia Repair Right Rotator Cuff Repair (x 2))
Social History
Tobacco: Former Smoker (quit in )
Alcohol: Occasional
Drug: None
Family History
Family History: Not Pertinent
Allergies / Home Medications
Allergy/AdvReac Type Severity Reaction Status Date / Time
atorvastatin Allergy MUSCLE Verified 12/29/23 19:08
CRAMPS
Cephalosporins Allergy kidney Verified 12/29/23 19:08
disease
coconut Allergy vomits Verified 12/29/23 19:08
penicillin V Allergy Vomiting Verified 12/29/23 19:08
pregabalin [From Lyrica] Allergy Tongue Verified 12/29/23 19:08
Swelling
simvastatin Allergy muscle Verified 12/29/23 19:08
cramps
�Medication �Instructions �Recorded �Confirmed �Type
lamotrigine 100 mg tablet 100 mg PO BID Neurological 07/24/19 12/29/23 History
Condition
ezetimibe 10 mg tablet 10 mg PO HS High cholesterol 08/26/19 12/29/23 History
rosuvastatin 10 mg tablet 10 mg PO DAILY High cholesterol 08/26/19 12/29/23 History
aspirin 81 mg tablet,delayed 81 mg PO DAILY Blood clot 08/27/19 12/29/23 History
release prevention/tx
allopurinol 100 mg tablet 100 mg PO DAILY Gout 06/15/20 12/29/23 History
gabapentin 100 mg capsule 100 mg PO TID Pain 09/26/21 12/29/23 History
(Neurontin)
montelukast 10 mg tablet 10 mg PO UD bone pain prevention 09/26/21 12/29/23 History
(Singulair)
acyclovir 400 mg tablet 400 mg PO BID Infection 01/03/23 12/29/23 History
dexamethasone 4 mg tablet 4 mg PO UD Anti-Inflammatory 01/03/23 12/29/23 History
daratumumab 20 mg/mL intravenous 1,800 mg IV QMONTH Cancer 04/20/23 12/29/23 History
solution (Darzalex)
venetoclax 100 mg tablet 200 mg PO DAILY Cancer 04/20/23 12/29/23 History
(Venclexta)
risperidone 0.25 mg tablet 0.25 mg PO HS Mental Health/Anxiety 08/06/23 12/29/23 History
hydralazine 10 mg tablet 10 mg PO TID #90 tabs 08/21/23 12/29/23 Rx
isosorbide mononitrate 30 mg 30 mg PO DAILY HEART CONDITION #0 08/21/23 12/29/23 Rx
tablet,extended release 24 hr tabs
amiodarone 200 mg tablet 100 mg PO SUTUTHSA@0800 12/25/23 12/29/23 History
benzonatate 100 mg capsule 100 mg PO TIDPRN PRN cough #10 caps 12/27/23 12/29/23 Rx
Review of Systems
-
Shortness of breath no chest pain
All other systems: Negative unless noted
Physical Exam
Vital Signs
Vital Signs
Temp Pulse Resp BP Pulse Ox
98.0 F 66 18 124/60 97
12/30/23 07:23 12/30/23 08:14 12/30/23 07:23 12/30/23 08:14 12/30/23 07:23
Lab Results
WBC 4.7 10^3/uL (4.8-10.8) L 12/29/23 21:47
RBC 3.91 10^6/uL (4.70-6.10) L 12/29/23 21:47
Hgb 11.1 g/dL (13.0-18.0) L 12/29/23 21:47
Hct 35.1 % (39.0-52.0) L 12/29/23 21:47
Plt Count 162 10^3/uL (130-400) 12/29/23 21:47
Sodium 134 mmol/L (135-145) L 12/29/23 21:47
Potassium 4.2 mmol/L (3.5-5.1) 12/29/23 21:47
Chloride 96 mmol/L (98-107) L 12/29/23 21:47
Carbon Dioxide 30 mmol/L (22-30) 12/29/23 21:47
BUN 28 mg/dl (9-20) H 12/29/23 21:47
Creatinine 2.6 mg/dL (0.7-1.3) H 12/29/23 21:47
eGFR 25.09 12/29/23 21:47
Glucose 125 mg/dl (70-99) H 12/29/23 21:47
Calcium 8.5 mg/dl (8.4-10.2) 12/29/23 21:47
Albumin 2.9 g/dl (3.5-5.0) L 12/29/23 21:47
Laboratory Tests
12/27/23
02:50
Hgb 11.3 L
Sodium 139
Potassium 4.1
Carbon Dioxide 28
Physical Exam
Patient is awake alert oriented and in no distress. Mood and affect were pleasant, insight and judgment were good. Pupils are equal round and reactive to light, extraocular movements are intact, sclera were anicteric. Hearing was normal, ears and
nose are intact. Oropharynx was clear. Neck was supple with trachea midline and no thyromegaly. Heart was regular rate and rhythm without rubs. Lower extremities without edema. Lungs were clear to auscultation bilaterally and with normal
excursion. Abdomen was soft, nontender, with normal active bowel sounds, and no hepatosplenomegaly. Skin was without rash and with normal turgor.
Data Reviewed
-
Radiology: Image Personally Visualized and interpreted (Chest x-ray on 12/29/2023 by my reading shows left hydropneumothorax)
Medical Tests (Nuc Med, Echo etc): Image Personally Visualized and interpreted (EKG on 12/26/2023 by my reading shows atrial fibrillation left anterior fascicular block septal Q)
Labs: Labs Reviewed by me
Old Records: Reviewed
Assessment/Plan
-
Impression:
End-stage renal disease Sunday [place] unit
Hypertension
Recurrent left pleural effusion, hydropneumothorax
Anemia
Coronary artery disease with multiple stents
Atrial fibrillation
Left IJ tunneled hemodialysis cath
History of AL amyloidosis/multiple myeloma
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
Plan:
Will need repeat thoracentesis
Pulmonary evaluation
Plan for dialysis tomorrow. Ultrafiltration will not address pleural effusion very well in this situation
--- NOTE | 2023-12-30 11:16 | CM ---
Met with patient who lives alone in one level home with 2 steps to enter. He goes to HD on MWF at [facility] in [place], [place].
Pharmacy :[facility] in [place], [place].
Plan for procedure on Sunday and HD at .
HOme no needs.
[2023-12-30 15:17] VITALS: BP 91/49
[2023-12-30] MEDS: APRESOLINE PO ×2 (16:54→23:09)
--- NOTE | 2023-12-30 17:36 | CON.PUL ---
Consultation
Consultation Request
Date/Time Consultation Requested: 12/30/2023
Date/Time Consultation Performed: 12/30/2019
Requesting Provider: Dr. Bird
Performing Provider: Dr. Nieto
Reason for Consultation: ICU
Medical History
-
History of Present Illness:
73-year-old male with past medical history significant for end-stage renal disease, on dialysis [id number], atrial fibrillation, hypertension, multiple myeloma, recurrent pleural effusion for the last 2 years presented with acute
worsening over the last few days.
Patient was discharged recently for similar symptoms. Imaging at that time showed bilateral pleural effusion with hydropneumothorax on the left.
I did left sided thoracentesis of 1.8 L with improvement of symptoms. Reports acute onset shortness of breath after his dialysis.
Denies any palpitation, cough, phlegm production or wheezing.
Denies any fevers.
Denies swallowing problems.
No evidence for hypoxemia in the emergency room. Normotensive. Not tachycardic. Afebrile.
Chest x-ray shows left sided hydropneumothorax.
We were consulted for evaluation of abnormal chest x-ray and shortness of breath.
Past Medical History
Past Medical History: Other (See assessment and plan)
Social History
Tobacco: Former Smoker
Alcohol: None
Drug: None
Personal: Single
Living: Alone
Employment: Not Employed
Family History
Family History: Reviewed & Not Pertinent
Allergies / Home Medications
Allergies
Allergy/AdvReac Type Severity Reaction Status Date / Time
atorvastatin Allergy MUSCLE Verified 12/29/23 19:08
CRAMPS
Cephalosporins Allergy kidney Verified 12/29/23 19:08
disease
coconut Allergy vomits Verified 12/29/23 19:08
penicillin V Allergy Vomiting Verified 12/29/23 19:08
pregabalin [From Lyrica] Allergy Tongue Verified 12/29/23 19:08
Swelling
simvastatin Allergy muscle Verified 12/29/23 19:08
cramps
Home Medications
�Medication �Instructions �Recorded �Confirmed �Last Taken �Type
lamotrigine 100 mg tablet 100 mg PO BID Neurological 07/24/19 12/29/23 12/25/23 History
Condition
ezetimibe 10 mg tablet 10 mg PO HS High cholesterol 08/26/19 12/29/23 12/24/23 History
rosuvastatin 10 mg tablet 10 mg PO DAILY High cholesterol 08/26/19 12/29/23 12/25/23 History
aspirin 81 mg tablet,delayed 81 mg PO DAILY Blood clot 08/27/19 12/29/23 12/25/23 History
release prevention/tx
allopurinol 100 mg tablet 100 mg PO DAILY Gout 06/15/20 12/29/23 12/25/23 History
gabapentin 100 mg capsule 100 mg PO TID Pain 09/26/21 12/29/23 12/25/23 History
(Neurontin)
montelukast 10 mg tablet 10 mg PO UD bone pain prevention 09/26/21 12/29/23 12/24/23 History
(Singulair)
acyclovir 400 mg tablet 400 mg PO BID Infection 01/03/23 12/29/23 12/25/23 History
dexamethasone 4 mg tablet 4 mg PO UD Anti-Inflammatory 01/03/23 12/29/23 12/25/23 History
daratumumab 20 mg/mL intravenous 1,800 mg IV QMONTH Cancer 04/20/23 12/29/23 12/24/23 History
solution (Darzalex)
venetoclax 100 mg tablet 200 mg PO DAILY Cancer 04/20/23 12/29/23 12/25/23 History
(Venclexta)
risperidone 0.25 mg tablet 0.25 mg PO HS Mental Health/Anxiety 08/06/23 12/29/23 12/24/23 History
hydralazine 10 mg tablet 10 mg PO TID #90 tabs 08/21/23 12/29/23 12/25/23 Rx
isosorbide mononitrate 30 mg 30 mg PO DAILY HEART CONDITION #0 08/21/23 12/29/23 12/25/23 Rx
tablet,extended release 24 hr tabs
amiodarone 200 mg tablet 100 mg PO SUTUTHSA@0800 12/25/23 12/29/23 12/25/23 History
benzonatate 100 mg capsule 100 mg PO TIDPRN PRN cough #10 caps 12/27/23 12/29/23 Unknown Rx
Review of Systems
-
History Source: Patient
All other systems: Negative unless noted
Vitals / Labs / Diagnostic Testing
Vital Signs
Temp Pulse Resp BP Pulse Ox
97.6 F 68 16 91/49 97
12/30/23 15:17 12/30/23 16:54 12/30/23 15:17 12/30/23 16:54 12/30/23 15:17
Lab Data
12/29/23 21:47
12/29/23 21:47
Diagnostic Testing:
Physical Exam
-
HEENT: Normocephalic
Cardiovascular: S1/S2
Respiratory: Non-Labored Respirations
GI: Soft and Non Distended
Neurology: Awake, Alert, Oriented and No Motor Deficits
Skin: Warm
General: Comfortable
Assessment
-
73-year-old man with chronic kidney disease, multiple other chronic medical problems including heart failure as well, coronary artery disease, recurrent left pleural effusion. Transudate. 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 Readmitted with
shortness of breath after dialysis. He is status post thoracentesis on 12/26/2023, no analysis was sent. Chest x-ray post with tobacco pneumothorax trapped lung physiology. We were consulted for recurrence of pleural effusion on the left.
Chronic left hydropneumothorax/decreased right-sided pleural effusion on chest x-ray this admission.
Thoracentesis 04/16/2023: White blood cells 251/90% mononuclear/glucose 112/total protein less than 2/LDH less than 90
Thoracentesis 11/02/2023: pH 7.56/white blood cells 92/90% mononuclear/glucose 102/total protein less than 2/LDH 99/ambulates negative/triglycerides negative/cytology negative for malignant
cells.
Thoracentesis 12/26/2023:-No analysis was sent
Shortness of breath
Conditions present [employer]
July of 2023: Admitted with hypovolemic shock secondary to left-sided retroperitoneal hemorrhage. Status post coil embolization by interventional radiology.
Coronary artery disease s/p Cardiac stents x 4 2010
Atrial fibrillation s/p CV
Stage 3b chronic kidney disease
HTN
Chronic HF pEF
HLD
COPD --moderate obstruction PFT 2020/moderately severe restriction/moderate diffusion impairment
Pleural effusion s/p L thora 04/16/23 and 04/05/23- 1200mL and 1000mL of yellow pleural fluid.
Left knee torn meniscus s/p arthroscopic repair 2000
Torn rotator cuff x 3 97, 98, 2000
Hernia repair
B/l knees replaced 2010 with revisions 2012
MM Follows with Dr Crocker on Darzalex for treatment
Former smoker, 30+ pack years
Assessment and plan:
Chronic left-sided hydropneumothorax. Likely due to ongoing volume overload/CKD/hypoalbuminemia/multiple myeloma possible but prior cytology has been negative.
Status post 2 thoracentesis March 2023 and October 2023. Both where transudate. Negative cytology.
CT chest 11/03/2023: Evidence of bilateral pleural effusions. No evidence for mediastinal lymph nodes or central masses. There was concern for left lower lobe infiltrate at that time. Possibly atelectatic versus infectious.
-
Patient has not been seen by pulmonary in the outpatient setting.
Patient does have left sided hydropneumothorax. Prior chest x-ray on 12/26/2023 showed trapped lung physiology. Immediately status post thoracentesis.
This effusion likely will always recur rapidly due to trapped lung physiology- unclear etiology.
In this case there is intervention that would prevent this effusion from coming other than treating underlying volume overload, nutritional support etc.
So far into thoracentesis no evidence for cancer.
Prior CT chest with a left lower lobe infiltrate but no evidence of mass or central major airway obstruction.
Okay with thoracentesis but likely will recur rapidly. Will follow cell count and cytology , likely to be transudate again.
Unlikely this will explain his rapid onset of shortness of breath, his symptoms likely are multifactorial.
-
Will continue to follow along with you.
Not a candidate for a Pleurx catheter.
Unlikely to be a candidate for any aggressive intervention such as VATS. I favor supportive care.
-
We can consider repeating CT of the chest with IV contrast after thoracentesis to evaluate mediastinum, major airways etc Suspicion is not very high.
-
Will follow
[2023-12-30 23:36] VITALS: BP 89/54
[2023-12-31] MEDS: TESSALON PERLES 100 MG PO ×2 (04:44→22:25)
[2023-12-31 06:00] VITALS: BMI 22.0
--- NOTE | 2023-12-31 07:39 | W.PN.PUL3 ---
Today's Communication / Plan
-
Continue HD as per nephrology
Check CT chest now that he is s/p left-sided thoracentesis
PT/OT - PT betsy rossiraquel on 12/27/2023; OT rec'd home health
Assessment
-
73-year-old man with chronic kidney disease, multiple other chronic medical problems including heart failure as well, coronary artery disease, recurrent left pleural effusion. Transudate. 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 Readmitted with
shortness of breath after dialysis. He is status post thoracentesis on 12/26/2023, no analysis was sent. Chest x-ray post with tobacco pneumothorax trapped lung physiology. We were consulted for recurrence of pleural effusion on the left.
Impression:
Chronic left hydropneumothorax/decreased right-sided pleural effusion on chest x-ray this admission.
Thoracentesis 04/16/2023: White blood cells 251/96% mononuclear/glucose 112/total protein less than 2/LDH less than 90
Thoracentesis 11/02/2023: pH 7.56/white blood cells 92/96.7% mononuclear/glucose 102/total protein less than 2/LDH 99/amylase negative/TG negative/cytology negative for malignant
cells.
Thoracentesis 12/26/2023:-No analysis was sent
Shortness of breath
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
July of 2023: Admitted with hypovolemic shock secondary to left-sided retroperitoneal hemorrhage. Status post coil embolization by interventional radiology.
Coronary artery disease s/p Cardiac stents x 4 2010
Atrial fibrillation s/p CV
Stage 3b chronic kidney disease
HTN
Chronic HF pEF
HLD
COPD --moderate obstruction PFT 2020/moderately severe restriction/moderate diffusion impairment
Pleural effusion s/p L thora 04/16/23 and 04/05/23- 1200mL and 1000mL of yellow pleural fluid.
Left knee torn meniscus s/p arthroscopic repair 2000
Torn rotator cuff x 3 97, , 2000
Hernia repair
B/l knees replaced 2010 with revisions 2012
MM Follows with Dr Crocker on Darzalex for treatment
Former smoker, 30+ pack years
Assessment and plan:
Chronic left-sided hydropneumothorax. Likely due to ongoing volume overload/CKD/hypoalbuminemia/multiple myeloma possible but prior cytology has been negative.
Status post 2 thoracentesis March 2023 and October 2023. Both where transudate. Negative cytology.
CT chest 11/03/2023: Evidence of bilateral pleural effusions. No evidence for mediastinal lymph nodes or central masses. There was concern for left lower lobe infiltrate at that time. Possibly atelectatic versus infectious.
-
Patient has not been seen by pulmonary in the outpatient setting.
Patient does have left sided hydropneumothorax. Prior chest x-ray on 12/26/2023 showed trapped lung physiology. Immediately status post thoracentesis.
This effusion likely will always recur rapidly due to trapped lung physiology- unclear etiology.
In this case there is no intervention that would prevent this effusion from coming other than treating underlying volume overload, nutritional support etc.
So far repeat thoracentesis no evidence for cancer.
Prior CT chest with a left lower lobe infiltrate but no evidence of mass or central major airway obstruction.
Patient underwent left-sided thoracentesis today, removing 1050 cc of exudative fluid (LDH 239); follow up fluid Cx + cytopathology
Unlikely this will explain his rapid onset of shortness of breath, his symptoms likely are multifactorial.
-
Will continue to follow along with you.
Not a candidate for a Pleurx catheter.
Unlikely to be a candidate for any aggressive intervention such as VATS. I favor supportive care.
-
Will obtain CT Chest now that he is s/p repeat L-sided thoracentesis to evaluate lung parenchyma, mediastinum, major airways etc
-
Will follow
Total time spent today was 37 minutes for this encounter. Time includes reviewing laboratory test/imaging results, reviewing pertinent medical records, obtaining and reviewing medical history, performing an appropriate exam, ordering medications,
tests and procedures. Time also includes documentation of this encounter, coordinating patient care and communicating with other healthcare professionals. Total time does not include separately billed tests performed on this date of service.
Subjective Data
-
Date of Service:
Date of Service: December 31, 2023
Chief Complaint: Pulmonary Follow Up
Subjective:
Patient seen and evaluated at bedside. He is currently on dialysis with UF goal of 2 L today. He feels well. He is currently on room air breathing comfortably. No acute events reported from overnight. Currently denies chest pain or back pain.
He is pending thoracentesis today of left pleural effusion.
Review of Systems
General: Other (Negative unless mentioned above)
Objective Data
Data Reviewed
Vital Signs / I&O / Oxygen:
Vital Signs
Temp Pulse Resp BP Pulse Ox
97.4 F 67 16 89/54 97
12/30/23 23:36 12/30/23 23:36 12/30/23 23:36 12/30/23 23:36 12/30/23 23:36
Intake and Output
12/30/23 12/31/23 01/01/24
06:59 06:59 06:59
Intake Total 120 / 120 1020 / 1020
Balance 120 / 120 1020 / 1020
SaO2 97
Physical Exam
General: Respiratory Distress (negative), Comfortable and Chills (negative)
HEENT: Normocephalic and Anicteric
Cardiovascular: S1-S2 and Peripheral Edema (negative)
Respiratory: Wheeze (negative), Crackles (Bibasilar), Rhonchi (negative), Non-Labored Respirations and Other (Reduced breath sounds bilaterally)
GI: Soft, Non Distended, Non Tender and Normal Bowel Sounds
Neurology: Awake, Alert and Tremors (negative)
Skin: Warm, Dry, Cyanosis (negative) and Jaundice (negative)
[2023-12-31] MEDS: HEPARIN SC (08:16)
[2023-12-31 08:43] LABS: Hemoglobin 11.2 g/dL (13.0-18.0); Mean Corpuscular Hgb 28.8 pg (27.0-31.0); Mean Platelet Volume 11.1 fL (7.4-10.4); Platelet Count 188 10^3/uL (130-400); Red Blood Cell Count 3.89 10^6/uL (4.70-6.10); Red Cell Dist. Width 16.4 % (11.5-14.5); White Blood Cell Count 5.8 10^3/uL (4.8-10.8)
[2023-12-31] MEDS: HEPARIN 500 UNITS IV ×2 (09:07→10:49)
--- NOTE | 2023-12-31 09:13 | W.PN.NEPH.HD ---
Assessment
-
Patient seen on dialysis
Systolic blood pressure 105 the current UF
Progress Note - Hemodialysis
-
Date of Service: December 31, 2023
Duration: 30 minutes and 3 hours
Potassium Bath: 2
Calcium Bath: 2.5
Opti-Dialyzer: 160
Ultrafiltration: Other (2kg)
Blood Flow: 400
Dialysate Flow: 600
Heparin: 500 times two
EPO: none
[2023-12-31 09:14] LABS: Blood Urea Nitrogen 45 mg/dl (9-20); Calcium 8.2 mg/dl (8.4-10.2); Carbon Dioxide 28 mmol/L (22-30); Chloride 97 mmol/L (98-107); Estimated Creatinine Clearance 19 ml/min; Glucose 96 mg/dl (70-99); Potassium 4.2 mmol/L (3.5-5.1); Sodium 137 mmol/L (135-145); eGFR 18.19
--- NOTE | 2023-12-31 10:37 | W.PN.HOSP.TC ---
Today's Communication/Plan
-
Dialysis
IR consult
Assessment / Plan
Assessment / Plan
Gen-AAOx3, NAD
HEENT-NC, AT, anicteric, clear oral mm
Neck-supple
CV-reg, no M, +S1/S2
Lungs-clear B/L
Abd-soft, NT, ND
Ext-no edema
Musculoskeletal-no cyanosis, clubbing
Skin-warm and dry
Neuro-grossly non-focal
Psych-calm, cooperative
Recurrent Left Pleural Effusion, likely from hypervolemia / CHF +/- myeloma.
- s/p thoracentesis 12/25 but re-accumulated rapidly
- repeat thora with labs today
- Pulm consulted
ESRD on HD
- Nephrology consulted. Patient states his dry weight is 135 pounds, currently 156.
ASCVD
- no chest pain
- Continue usual CV med regimen.
Chronic HFrEF
- Volume management on HD as noted above.
- Follow daily weights, I/Os, etc.
Paroxysmal Atrial Fibrillation
- Stable. Continue amiodarone per outpatient schedule.
- No longer on OAC following significant bleeding event from July.
Essential hypertension -blood pressure running low last night, recheck this morning. Currently getting dialysis.
Multiple Myeloma / Cardiac Amyloidosis
- Stable. Continue venetoclax.
- Receives Darzalex monthly.
- f/u with Oncology as an outpatient.
DVT Prophylaxis: SC Heparin
Code Status: Full
Anticipated Discharge: 24 - 48 hours
Subjective/Interval History
-
Date of Service: December 31, 2023
Patient seen and examined. States his breathing today is improved. No complaints.
Objective Data
-
Labs:
Laboratory Results
12/31/23
08:16
WBC 5.8
Hgb 11.2 L
Hct 35.0 L
Plt Count 188
Sodium 137
Potassium 4.2
Chloride 97 L
Carbon Dioxide 28
BUN 45 H
Creatinine 3.4 H
Glucose 96
Calcium 8.2 L
Vital Signs:
Vital Signs
Temp Pulse Resp BP Pulse Ox
97.4 F 67 16 89/54 97
12/30/23 23:36 12/30/23 23:36 12/30/23 23:36 12/30/23 23:36 12/30/23 23:36
I&O
12/30/23 12/31/23 01/01/24
06:59 06:59 06:59
Intake Total 120 / 120 1020 / 1020
Balance 120 / 120 1020 / 1020
Review of Systems
-
History Source: Patient
All other systems: Reviewed and negative
[2023-12-31 11:14] VITALS: BMI 22.0
[2023-12-31] MEDS: HEPARIN 4500 UNITS INTRACATH (11:23)
[2023-12-31] MEDS: ZOVIRAX 200 MG PO ×2 (12:10→20:23)
[2023-12-31] MEDS: CRESTOR 10 MG PO (12:11)
[2023-12-31] MEDS: ZYLOPRIM 100 MG PO (12:11)
[2023-12-31] MEDS: IMDUR (EXTENDED RELEASE) 30 MG PO (12:11)
[2023-12-31] MEDS: ASPIR LOW (ENTERIC COATED) 81 MG PO (12:11)
[2023-12-31] MEDS: APRESOLINE PO ×2 (12:12→14:08)
[2023-12-31] MEDS: NEURONTIN 100 MG PO ×2 (12:15→22:22)
[2023-12-31] MEDS: LAMICTAL 100 MG PO ×2 (12:15→20:23)
[2023-12-31 12:55] VITALS: BP 126/62; BP_SYST 79
[2023-12-31 13:35] VITALS: BP 111/55; BP_SYST 76
[2023-12-31 13:48] VITALS: BP 111/55
[2023-12-31] MEDS: NEURONTIN PO (14:08)
[2023-12-31 14:09] LABS: Body Fluid pH 7.49
[2023-12-31 14:17] LABS: Body Fluid WBC 557 /CUMM
[2023-12-31 14:27] LABS: Body Fluid Second Tech CMB
[2023-12-31 14:30] LABS: Body Fluid LDH 239 U/L; Body Fluid Protein < 2.0 g/dl
[2023-12-31 14:56] LABS: Body Fluid Glucose 90 mg/dl
[2023-12-31 14:59] LABS: Body Fluid Triglycerides < 30 mg/dl
[2023-12-31 15:13] VITALS: BP 125/61
[2023-12-31] MEDS: ZOVIRAX PO (16:35)
[2023-12-31] MEDS: HEPARIN 5000 UNITS SC (20:22)
[2023-12-31 22:21] VITALS: BP 129/63
[2023-12-31] MEDS: ZETIA 10 MG PO (22:21)
[2023-12-31] MEDS: RISPERDAL 0.25 MG PO (22:22)
[2023-12-31] MEDS: APRESOLINE 10 MG PO (22:25)
[2024-01-01 06:00] VITALS: BMI 21.1
[2024-01-01 07:45] VITALS: BP 136/67
[2024-01-01] MEDS: NEURONTIN 100 MG PO ×3 (07:59→21:27)
[2024-01-01] MEDS: ASPIR LOW (ENTERIC COATED) 81 MG PO (07:59)
[2024-01-01] MEDS: ZOVIRAX 200 MG PO ×2 (08:00→19:49)
[2024-01-01] MEDS: APRESOLINE 10 MG PO ×3 (08:00→21:27)
[2024-01-01] MEDS: ZYLOPRIM 100 MG PO (08:00)
[2024-01-01] MEDS: CRESTOR 10 MG PO (08:00)
[2024-01-01] MEDS: LAMICTAL 100 MG PO ×2 (08:01→19:48)
[2024-01-01] MEDS: HEPARIN 5000 UNITS SC ×2 (08:01→19:49)
[2024-01-01] MEDS: PACERONE 100 MG PO (08:02)
[2024-01-01] MEDS: IMDUR (EXTENDED RELEASE) 30 MG PO (08:02)
[2024-01-01] MEDS: TESSALON PERLES 100 MG PO ×2 (08:09→16:22)
--- NOTE | 2024-01-01 09:44 | W.PN.PUL3 ---
Today's Communication / Plan
-
Continue with HD as per nephrology
CT chest today shows persistent albeit improved bilateral pleural effusions
Start Lasix + Aldactone and attempt to prevent reaccumulation of pleural fluid, however given patient's an uric status, he may be fully dependent on HD for fluid removal
He follows with a cheese sprayer through [place], [place] who should be notified upon discharge so that they are aware of the patient's rigidity of pleural fluid reaccumulation, and can hopefully adjust the ultrafiltration HD goals to prevent
rehospitalization
PT/OT - PT signed off on 12/27/2023; OT rec'd home health
keep SpO2>90-94%
Pulmonary service will continue to follow along
Assessment
-
73-year-old man with chronic kidney disease, multiple other chronic medical problems including heart failure as well, coronary artery disease, recurrent left pleural effusion. Transudate. 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 Readmitted with
shortness of breath after dialysis. He is status post thoracentesis on 12/26/2023, no analysis was sent. Chest x-ray post with tobacco pneumothorax trapped lung physiology. We were consulted for recurrence of pleural effusion on the left.
Impression:
Chronic left hydropneumothorax/decreased right-sided pleural effusion on chest x-ray this admission.
Thoracentesis 04/16/2023: White blood cells 251/96% mononuclear/glucose 112/total protein less than 2/LDH less than 90
Thoracentesis 11/02/2023: pH 7.56/white blood cells 92/96.7% mononuclear/glucose 102/total protein less than 2/LDH 99/amylase negative/TG negative/cytology negative for malignant
cells.
Thoracentesis 12/26/2023:-No analysis was sent
Thoracentesis 12/31/2023 - exudative
Shortness of breath
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
July of 2023: Admitted with hypovolemic shock secondary to left-sided retroperitoneal hemorrhage. Status post coil embolization by interventional radiology.
Coronary artery disease s/p Cardiac stents x 4 2010
Atrial fibrillation s/p CV
Stage 3b chronic kidney disease
HTN
Chronic HFpEF
HLD
COPD --moderate obstruction PFT 2020/moderately severe restriction/moderate diffusion impairment
Pleural effusion s/p L thora 04/16/23 and 04/05/23- 1200mL and 1000mL of yellow pleural fluid.
Left knee torn meniscus s/p arthroscopic repair 2000
Torn rotator cuff x 3 97, 98, 2000
Hernia repair
B/l knees replaced 2010 with revisions 2012
MM Follows with Dr Crocker on Darzalex for treatment
Former smoker, 30+ pack years
Assessment and plan:
Chronic left-sided hydropneumothorax. Likely due to ongoing volume overload/CKD/hypoalbuminemia/multiple myeloma possible but prior cytology has been negative.
Status post 2 thoracentesis March 2023 and October 2023. Both where transudate. Negative cytology.
Underwent repeat thoracentesis on 12/31/2023 removing 1050 cc of clear, joyce-colored exudative fluid --> repeat CT chest this AM shows improved bilateral pleural effusions
CT chest 11/03/2023: Evidence of bilateral pleural effusions. No evidence for mediastinal lymph nodes or central masses. There was concern for left lower lobe infiltrate at that time. Possibly atelectatic versus infectious.
-
Patient has not been seen by pulmonary in the outpatient setting.
Patient does have left sided hydropneumothorax. Prior chest x-ray on 12/26/2023 showed trapped lung physiology. Immediately status post thoracentesis.
This effusion likely will always recur rapidly due to trapped lung physiology- unclear etiology but suspect to be from renal failure/CHF.
In this case there is no intervention that would prevent this effusion from coming other than treating underlying volume management, nutritional support etc.
So far repeat thoracentesis no evidence for cancer.
Prior CT chest with a left lower lobe infiltrate but no evidence of mass or central major airway obstruction.
Patient underwent left-sided thoracentesis on 12/31/2023, removing 1050 cc of exudative fluid (LDH 239); follow up fluid Cx + cytopathology
Unlikely this will explain his rapid onset of shortness of breath, his symptoms likely are multifactorial.
Would start low dose diuretic with aldactone and midodrine given his chronic hypotension --> he makes little urine, says he has not urinated in last 3 days, hence diuretics may not work in the end and he may be fully dependent on HD for volume
removal
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
-
Will continue to follow along with you.
Not a candidate for a Pleurx catheter.
Unlikely to be a candidate for any aggressive intervention such as VATS. I favor supportive care.
-
Will follow
Total time spent today was 36 minutes for this encounter. Time includes reviewing laboratory test/imaging results, reviewing pertinent medical records, obtaining and reviewing medical history, performing an appropriate exam, ordering medications,
tests and procedures. Time also includes documentation of this encounter, coordinating patient care and communicating with other healthcare professionals. Total time does not include separately billed tests performed on this date of service.
Subjective Data
-
Date of Service:
Date of Service: January 01, 2024
Chief Complaint: Pulmonary Follow Up
Subjective:
Patient seen and evaluated today at bedside. Still feels very weak. Currently on room air, endorsing dry cough but says the Bernarda Conklin are helping. He denies chest pain, GARCIA, nausea, fevers or chills.
Review of Systems
General: Other (Negative unless mentioned above)
Objective Data
Data Reviewed
Vital Signs / I&O / Oxygen:
Vital Signs
Temp Pulse Resp BP Pulse Ox
97.3 F 76 18 136/67 100
01/01/24 07:45 01/01/24 08:00 01/01/24 07:45 01/01/24 08:00 01/01/24 07:45
Intake and Output
12/31/23 01/01/24 01/02/24
06:59 06:59 06:59
Intake Total 1020 / 1020 300 / 300
Output Total 0 / 0
Balance 1020 / 1020 300 / 300
SaO2 100
Physical Exam
General: Respiratory Distress (negative), Comfortable and Chills (negative)
HEENT: Normocephalic and Anicteric
Cardiovascular: Peripheral Edema (negative) and Other (normal rate)
Respiratory: Wheeze (negative), Crackles (Bibasilar to middle lung billings), Rhonchi (negative), Non-Labored Respirations and Other (Reduced breath sounds bilaterally)
GI: Soft, Non Distended, Non Tender and Normal Bowel Sounds
Neurology: AO x 3 and Tremors (negative)
Skin: Warm, Dry, Cyanosis (negative) and Jaundice (negative)
Labs/Micro/Reports
Lab Data
12/31/23 08:16
12/31/23 08:16
Microbiology
12/31/23 13:32 Pleural Fluid Gram Stain - Preliminary
12/30/23 00:52 Nose MRSA Screen - Final
No Methicillin Resistant Staphylococcus aureus isolated.
--- NOTE | 2024-01-01 12:09 | W.PN.HOSP.TC ---
Today's Communication/Plan
-
PT/OT
Assessment / Plan
Assessment / Plan
Gen-AAOx3, NAD
HEENT-NC, AT, anicteric, clear oral mm
Neck-supple
CV-reg, no M, +S1/S2
Lungs-clear B/L
Abd-soft, NT, ND
Ext-no edema
Musculoskeletal-no cyanosis, clubbing
Skin-warm and dry
Neuro-grossly non-focal
Psych-calm, cooperative
Recurrent Left Pleural Effusion, likely from hypervolemia / CHF +/- myeloma.
- s/p thoracentesis 12/25 but re-accumulated rapidly. Repeat thoracentesis done 12/30, 1 L of clear joyce fluid removed. Cytology sent.
CT chest done today shows small left pleural effusion without significant change, improved left lower lobe opacification. Slightly decreased small right pleural effusion. Suspected small anterior left basilar pneumothorax. No mediastinal shift.
Pulmonary recommends more aggressive hemodialysis to prevent fluid reaccumulation. Will defer to nephrology.
ESRD on HD
- Nephrology consulted. Patient states his dry weight is 135 pounds, currently 150, down compared to admission.
ASCVD
- no chest pain
- Continue usual CV med regimen.
Chronic HFrEF
- Volume management on HD as noted above.
- Follow daily weights, I/Os, etc.
Paroxysmal Atrial Fibrillation
- Stable. Continue amiodarone per outpatient schedule.
- No longer on OAC following significant bleeding event from July.
Essential hypertension -stable.
Multiple Myeloma / Cardiac Amyloidosis
- Stable. Continue venetoclax.
- Receives Darzalex monthly.
- f/u with Oncology as an outpatient.
DVT Prophylaxis: SC Heparin
Code Status: Full
Anticipated Discharge: Within 24 hours
Subjective/Interval History
-
Date of Service: January 01, 2024
Patient seen and examined. Still with mild shortness of breath, but looks comfortable. Sleeping when I walked in.
Objective Data
-
Vital Signs:
Vital Signs
Temp Pulse Resp BP Pulse Ox
97.3 F 76 18 136/67 100
01/01/24 07:45 01/01/24 08:00 01/01/24 07:45 01/01/24 08:00 01/01/24 07:45
I&O
12/31/23 01/01/24 01/02/24
06:59 06:59 06:59
Intake Total 1020 / 1020 300 / 300
Output Total 0 / 0
Balance 1020 / 1020 300 / 300
Review of Systems
-
History Source: Patient
All other systems: Reviewed and negative
--- NOTE | 2024-01-01 13:32 | W.PN.NEPH.PH ---
Today's Communication / Plan
-
Hd tomorrow
push u/f as hemodynamically tolerated
add torsemide
Assessment/Plan
-
Impression:
End-stage renal disease [facility] [place] [facility]
Hypertension
Recurrent left pleural effusion, hydropneumothorax
Anemia
Coronary artery disease with multiple stents
Atrial fibrillation
Left IJ tunneled hemodialysis cath
History of AL amyloidosis/multiple myeloma
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
Plan:
we can try torsemide 20mg daily to start for persistent volume overload, I am not sure how much urine the patient makes thus efficacy could be minimal
Plan for dialysis tomorrow. will attempt to push to EDW
-
-
Date of Service: January 01, 2024
CC / HPI / ROS
-
Chief Complaint:
ESRD
History of Present Illness:
ESRD MWF [place] diaysis
bp stable
Review of Systems:
no chest pain or sob
Labs
-
Labs:
WBC 5.8 10^3/uL (4.8-10.8) 12/31/23 08:16
RBC 3.89 10^6/uL (4.70-6.10) L 12/31/23 08:16
Hgb 11.2 g/dL (13.0-18.0) L 12/31/23 08:16
Hct 35.0 % (39.0-52.0) L 12/31/23 08:16
Plt Count 188 10^3/uL (130-400) 12/31/23 08:16
Sodium 137 mmol/L (135-145) 12/31/23 08:16
Potassium 4.2 mmol/L (3.5-5.1) 12/31/23 08:16
Chloride 97 mmol/L (98-107) L 12/31/23 08:16
Carbon Dioxide 28 mmol/L (22-30) 12/31/23 08:16
BUN 45 mg/dl (9-20) H 12/31/23 08:16
Creatinine 3.4 mg/dL (0.7-1.3) H 12/31/23 08:16
eGFR 18.19 12/31/23 08:16
Glucose 96 mg/dl (70-99) 12/31/23 08:16
Calcium 8.2 mg/dl (8.4-10.2) L 12/31/23 08:16
Albumin 2.9 g/dl (3.5-5.0) L 12/29/23 21:47
Physical Exam
-
Vital Signs:
Vital Signs
Temp Pulse Resp BP Pulse Ox
97.3 F 76 18 136/67 100
01/01/24 07:45 01/01/24 08:00 01/01/24 07:45 01/01/24 08:00 01/01/24 07:45
Extremity Edema:: +1: Bilateral:
Viera Catheter: No
Other Findings::
skin no rash
no acute distress
able to walk with cane , grossly non focal
[2024-01-01 15:20] VITALS: BP 132/66
[2024-01-01 15:55] VITALS: BP 132/64; PULSE 69
[2024-01-01 16:00] VITALS: BP 132/64; PULSE 69
[2024-01-01] MEDS: LASIX 80 MG PO (19:49)
[2024-01-01 19:50] VITALS: BMI 21.1
[2024-01-01] MEDS: ALDACTONE 50 MG PO (19:52)
[2024-01-01] MEDS: ZETIA 10 MG PO (21:27)
[2024-01-01] MEDS: RISPERDAL 0.25 MG PO (21:28)
[2024-01-01 23:25] VITALS: BP 143/66
--- NOTE | 2024-01-02 04:16 | DOWNTIME ---
There was a [employer] Client [employer] Downtime on 01/02/2024 from 0100 to 01/02/2024 at 0355. Downtime documentation of patient's care, including medication administrations, has been reconciled in the electronic record per guidelines. Refer to the
patient's paper chart under the miscellaneous tab to see printed paper medication records and downtime forms.
[2024-01-02 06:00] VITALS: BMI 21.4
[2024-01-02 07:30] VITALS: BP 135/64
[2024-01-02] MEDS: TESSALON PERLES 100 MG PO (07:49)
[2024-01-02] MEDS: ASPIR LOW (ENTERIC COATED) 81 MG PO (07:49)
[2024-01-02] MEDS: LAMICTAL 100 MG PO ×2 (07:49→19:54)
[2024-01-02] MEDS: NEURONTIN 100 MG PO ×3 (07:50→21:21)
[2024-01-02] MEDS: ZOVIRAX 200 MG PO ×2 (07:50→19:54)
[2024-01-02] MEDS: CRESTOR 10 MG PO (07:50)
[2024-01-02] MEDS: IMDUR (EXTENDED RELEASE) 30 MG PO (07:51)
[2024-01-02] MEDS: ZYLOPRIM 100 MG PO (07:51)
[2024-01-02] MEDS: HEPARIN 5000 UNITS SC ×2 (07:52→19:54)
[2024-01-02] MEDS: ALDACTONE 50 MG PO (07:52)
[2024-01-02] MEDS: LASIX 80 MG PO ×2 (07:52→17:57)
[2024-01-02] MEDS: APRESOLINE 10 MG PO ×3 (07:53→21:21)
--- NOTE | 2024-01-02 07:56 | W.PN.PUL3 ---
Today's Communication / Plan
-
Continue with HD as per nephrology
CT chest from yesterday shows persistent albeit improved bilateral pleural effusions
Continue Lasix + Aldactone in an attempt to prevent reaccumulation of pleural fluid, however given patient's anuric/oliguric status, he may be fully dependent on HD for fluid removal
He follows with a network control supervisor Dr. Olivia through [place], [place] who should be notified upon discharge so that he is aware of the patient's rapidity of pleural fluid reaccumulation, and can hopefully adjust the ultrafiltration HD goals to prevent
re-hospitalization
PT/OT - both rec'd home health
keep SpO2>90-94% -> check walking pulse oximetry prior to discharge
No additional pulmonary recommendations at this time. Discharge planning per hospitalist; please check home oxygen assessment prior to discharge. Pulmonary service will now sign off. Please reconsult if there are any additional
questions/concerns, or if patient's respiratory status deteriorates.
Assessment
-
73-year-old man with chronic kidney disease, multiple other chronic medical problems including heart failure as well, coronary artery disease, recurrent left pleural effusion. Transudate. 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 Readmitted with
shortness of breath after dialysis. He is status post thoracentesis on 12/26/2023, no analysis was sent. Chest x-ray post with tobacco pneumothorax trapped lung physiology. We were consulted for recurrence of pleural effusion on the left.
Impression:
Chronic left hydropneumothorax/decreased right-sided pleural effusion on chest x-ray this admission.
Thoracentesis 04/16/2023: White blood cells 251/96% mononuclear/glucose 112/total protein less than 2/LDH less than 90
Thoracentesis 11/02/2023: pH 7.56/white blood cells 92/96.7% mononuclear/glucose 102/total protein less than 2/LDH 99/amylase negative/TG negative/cytology negative for malignant
cells.
Thoracentesis 12/26/2023:-No analysis was sent
Thoracentesis 12/31/2023 - exudative
Shortness of breath
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
July of 2023: Admitted with hypovolemic shock secondary to left-sided retroperitoneal hemorrhage. Status post coil embolization by interventional radiology.
Coronary artery disease s/p Cardiac stents x 4 2010
Atrial fibrillation s/p CV
Stage 3b chronic kidney disease
HTN
Chronic HFpEF
HLD
COPD --moderate obstruction PFT 2020/moderately severe restriction/moderate diffusion impairment
Pleural effusion s/p L thora 04/16/23 and 04/05/23- 1200mL and 1000mL of yellow pleural fluid.
Left knee torn meniscus s/p arthroscopic repair 2000
Torn rotator cuff x 3 , , 2000
Hernia repair
B/l knees replaced 2010 with revisions 2012
MM Follows with Dr Crocker on Darzalex for treatment
Former smoker, 30+ pack years
Assessment and plan:
Chronic left-sided hydropneumothorax. Likely due to ongoing volume overload/CKD/hypoalbuminemia/multiple myeloma possible but prior cytology has been negative.
Status post 2 thoracentesis March 2023 and October 2023. Both where transudate. Negative cytology.
Underwent repeat thoracentesis on 12/31/2023 removing 1050 cc of clear, joyce-colored exudative fluid --> repeat CT chest this AM shows improved bilateral pleural effusions
CT chest 11/03/2023: Evidence of bilateral pleural effusions. No evidence for mediastinal lymph nodes or central masses. There was concern for left lower lobe infiltrate at that time. Possibly atelectatic versus infectious.
-
Patient has not been seen by pulmonary in the outpatient setting.
Patient does have left sided hydropneumothorax. Prior chest x-ray on 12/26/2023 showed trapped lung physiology. Immediately status post thoracentesis.
This effusion likely will always recur rapidly due to trapped lung physiology- unclear etiology but suspect to be from renal failure/CHF.
In this case there is no intervention that would prevent this effusion from coming other than treating underlying volume management, nutritional support etc.
So far repeat thoracentesis no evidence for cancer.
Prior CT chest with a left lower lobe infiltrate but no evidence of mass or central major airway obstruction.
Patient underwent left-sided thoracentesis on 12/31/2023, removing 1050 cc of exudative fluid (LDH 239); follow up fluid Cx + cytopathology
Unlikely this will explain his rapid onset of shortness of breath, his symptoms likely are multifactorial.
On 01/01/2024 I started a low dose diuretic with lasix and also aldactone and also midodrine given his chronic hypotension --> he makes little urine, says he has not urinated in last 3 days, hence diuretics may not work in the end and he may be
fully dependent on HD for volume removal - he did make some urine today (01/01) which is encouraging
He follows with a Brokerage Manager at [facility], Dr. Olivia, and he should be aware that we are starting diuretics and adjust his HD sessions accordingly to maximize UF to help prevent recurrence of pleural fluid
-
Will continue to follow along with you.
Not a candidate for a Pleurx catheter.
Unlikely to be a candidate for any aggressive intervention such as VATS. I favor supportive care.
-
No additional pulmonary recommendations at this time. Discharge planning, and check home oxygen assessment prior to discharge. Pulmonary service will now sign off. Thank you for allowing us to be involved in the care of this patient. Please
reconsult if there are any additional questions/concerns, or if patient's respiratory status deteriorates.
Total time spent today was 36 minutes for this encounter. Time includes reviewing laboratory test/imaging results, reviewing pertinent medical records, obtaining and reviewing medical history, performing an appropriate exam, ordering medications,
tests and procedures. Time also includes documentation of this encounter, coordinating patient care and communicating with other healthcare professionals. Total time does not include separately billed tests performed on this date of service.
Subjective Data
-
Date of Service:
Date of Service: January 02, 2024
Chief Complaint: Pulmonary Follow Up
Subjective:
Patient was seen and evaluated today at bedside. Plan for HD today with UF goal of 2 L. No acute events reported overnight. He denies any coughing, chest pain, GARCIA, nausea, fevers or chills. Still feels generalized weakness.
Review of Systems
General: Other (Negative unless mentioned above)
Objective Data
Data Reviewed
Vital Signs / I&O / Oxygen:
Vital Signs
Temp Pulse Resp BP Pulse Ox
97.8 F 71 18 143/66 98
01/01/24 23:25 01/01/24 23:25 01/01/24 23:25 01/01/24 23:25 01/01/24 23:25
Intake and Output
01/01/24 01/02/24 01/03/24
06:59 06:59 06:59
Intake Total 300 / 300 600 / 600
Output Total 0 / 0
Balance 300 / 300 600 / 600
SaO2 98
Physical Exam
General: Respiratory Distress (negative), Comfortable and Chills (negative)
HEENT: Normocephalic and Anicteric
Cardiovascular: Peripheral Edema (negative) and Other (normal rate)
Respiratory: Wheeze (negative), Crackles (Bibasilar to middle lung billings), Rhonchi (negative), Non-Labored Respirations and Other (Reduced breath sounds bilaterally)
GI: Soft, Non Distended, Non Tender and Normal Bowel Sounds
Neurology: AO x 3 and Tremors (negative)
Skin: Warm, Dry, Cyanosis (negative) and Jaundice (negative)
Labs/Micro/Reports
Microbiology
12/31/23 13:32 Pleural Fluid Body Fluid Culture - Preliminary
No Growth After 18-24 Hours
12/31/23 13:32 Pleural Fluid Gram Stain - Preliminary
12/30/23 00:52 Nose MRSA Screen - Final
No Methicillin Resistant Staphylococcus aureus isolated.
--- NOTE | 2024-01-02 12:15 | W.PN.HOSP.TC ---
Addendum entered and electronically signed by Oliver Nesbitt DO 01/02/24 12:30:
Updated ex- Jannette on the phone. All questions answered. She reminded us that Patient does live alone, unsure of how compliant he is with fluid and sodium restriction.
Original Note:
Today's Communication/Plan
-
Hemodialysis
Ambulatory pulse ox on room air
Possible discharge
Assessment / Plan
Assessment / Plan
Gen-AAOx3, NAD
HEENT-NC, AT, anicteric, clear oral mm
Neck-supple
CV-reg, no M, +S1/S2
Lungs-clear B/L
Abd-soft, NT, ND
Ext-no edema
Musculoskeletal-no cyanosis, clubbing
Skin-warm and dry
Neuro-grossly non-focal
Psych-calm, cooperative
Recurrent Left Pleural Effusion, likely from hypervolemia / CHF +/- myeloma.
- s/p thoracentesis 12/25 but re-accumulated rapidly. Repeat thoracentesis done 12/30, 1 L of clear joyce fluid removed. Cytology sent.
CT chest done today shows small left pleural effusion without significant change, improved left lower lobe opacification. Slightly decreased small right pleural effusion. Suspected small anterior left basilar pneumothorax. No mediastinal shift.
Pulmonary recommends more aggressive hemodialysis to prevent fluid reaccumulation. Will defer to nephrology.
Diuretics initiated, patient stated that he did put out urine today but unknown quantity. Was anuric prior to today. Not on diuretics at home.
ESRD on HD
- Nephrology consulted. Patient states his dry weight is 135 pounds, currently 152, down compared to admission.
ASCVD
- no chest pain
- Continue usual CV med regimen.
Chronic HFrEF
- Volume management on HD as noted above.
- Follow daily weights, I/Os, etc.
Paroxysmal Atrial Fibrillation
- Stable. Continue amiodarone per outpatient schedule.
- No longer on OAC following significant bleeding event from July.
Essential hypertension -stable.
Multiple Myeloma / Cardiac Amyloidosis
- Stable. Continue venetoclax.
- Receives Darzalex monthly.
- f/u with Oncology as an outpatient.
DVT Prophylaxis: SC Heparin
Full code
Dispo -possible discharge later today after dialysis. Discussed with pulmonary and nephrology. Check ambulatory pulse ox on room air.
Anticipated Discharge: Today
Subjective/Interval History
-
Date of Service: January 02, 2024
Patient seen and examined. No complaints.
Objective Data
-
Vital Signs:
Vital Signs
Temp Pulse Resp BP Pulse Ox
97.5 F 70 16 135/64 94
01/02/24 07:30 01/02/24 07:56 01/02/24 07:30 01/02/24 07:56 01/02/24 07:30
I&O
01/01/24 01/02/24 01/03/24
06:59 06:59 06:59
Intake Total 300 / 300 600 / 600
Output Total 0 / 0
Balance 300 / 300 600 / 600
Review of Systems
-
History Source: Patient
All other systems: Reviewed and negative
--- NOTE | 2024-01-02 12:39 | W.DS.TRANS ---
DC Summary - Registered Dietitian
-
Discharge Instructions:
Sleep Apnea Risk Intermediate
Discharge Diagnosis/Procedures Recurrent pleural effusion, ESRD
Diet 2 Gram Sodium,Other diet
Additional Diets 2 Gram potassium, 40 ounce daily fluid
restriction
Activity As tolerated
Driving Restrictions As prior to admission
Bathing Restrictions None
Instructions:
Stand-Alone Forms:
Changes to Home Medications: Yes
Discharge Medications:
DC Medications w/original date entered in [email or web address]
lamotrigine 100 mg tablet 100 mg PO BID Neurological Condition 07/24/19
ezetimibe 10 mg tablet 10 mg PO HS High cholesterol 08/26/19
rosuvastatin 10 mg tablet 10 mg PO DAILY High cholesterol 08/26/19
aspirin 81 mg tablet,delayed release 81 mg PO DAILY Blood clot prevention/tx 08/27/19
allopurinol 100 mg tablet 100 mg PO DAILY Gout 06/15/20
gabapentin 100 mg capsule (Neurontin) 100 mg PO TID Pain 09/26/21
montelukast 10 mg tablet (Singulair) 10 mg PO UD bone pain prevention 09/26/21
daratumumab 20 mg/mL intravenous solution (Darzalex) 1,800 mg IV QMONTH Cancer 04/20/23
venetoclax 100 mg tablet (Venclexta) 200 mg PO DAILY Cancer 04/20/23
risperidone 0.25 mg tablet 0.25 mg PO HS Mental Health/Anxiety 08/06/23
hydralazine 10 mg tablet 10 mg PO TID #90 tabs 08/21/23
isosorbide mononitrate 30 mg tablet,extended release 24 hr 30 mg PO DAILY HEART CONDITION #0 tabs 08/21/23
amiodarone 200 mg tablet 100 mg PO SUTUTHSA@0800 Arrhythmia 12/25/23
benzonatate 100 mg capsule 100 mg PO TIDPRN PRN cough #10 caps 12/27/23
acyclovir 200 mg capsule 200 mg PO BID #10 caps 01/02/24
furosemide 80 mg tablet 80 mg PO BID #60 tabs 01/02/24
spironolactone 50 mg tablet 50 mg PO DAILY #30 tabs 01/02/24
Home Medication Changes
Acyclovir dose reduced
Pending Results: No
[2024-01-02 14:25] LABS: Hematocrit 33.4 % (39.0-52.0); Hemoglobin 10.8 g/dL (13.0-18.0)
[2024-01-02 14:36] LABS: Carbon Dioxide 30 mmol/L (22-30); Chloride 98 mmol/L (98-107); Potassium 4.6 mmol/L (3.5-5.1); Sodium 135 mmol/L (135-145)
[2024-01-02 15:30] VITALS: BP 143/63
[2024-01-02] MEDS: HEPARIN 500 UNITS IV ×2 (15:34)
--- NOTE | 2024-01-02 16:07 | W.PN.NEPH.HD ---
Assessment
-
Seen on HD. no new complaints VSS, access ok
dc planning
Progress Note - Hemodialysis
-
Date of Service: January 02, 2024
Duration: 30 minutes and 3 hours
Potassium Bath: 3
Calcium Bath: 2.5
Opti-Dialyzer: 160
Ultrafiltration: Other (3kg)
Blood Flow: 400
Dialysate Flow: 600
Heparin: 500x2
EPO: 0
[2024-01-02] MEDS: HEPARIN 4200 UNITS INTRACATH (17:10)
[2024-01-02] MEDS: ZETIA 10 MG PO (21:21)
[2024-01-02] MEDS: RISPERDAL 0.25 MG PO (21:21)
[2024-01-02 23:30] VITALS: BP 139/71
[2024-01-03 06:00] VITALS: BMI 20.9
[2024-01-03 07:38] VITALS: BP 149/65
[2024-01-03] MEDS: PACERONE 100 MG PO (08:19)
[2024-01-03] MEDS: NEURONTIN 100 MG PO (08:19)
[2024-01-03] MEDS: LASIX 80 MG PO (08:19)
[2024-01-03] MEDS: ASPIR LOW (ENTERIC COATED) 81 MG PO (08:19)
[2024-01-03] MEDS: ALDACTONE 50 MG PO (08:20)
[2024-01-03] MEDS: APRESOLINE 10 MG PO (08:20)
[2024-01-03] MEDS: ZYLOPRIM 100 MG PO (08:20)
[2024-01-03] MEDS: LAMICTAL 100 MG PO (08:20)
[2024-01-03] MEDS: IMDUR (EXTENDED RELEASE) 30 MG PO (08:20)
[2024-01-03] MEDS: CRESTOR 10 MG PO (08:21)
[2024-01-03] MEDS: ZOVIRAX 200 MG PO (08:23)
[2024-01-03] MEDS: HEPARIN 5000 UNITS SC (08:24)
--- NOTE | 2024-01-03 10:24 | W.DS.TRANS ---
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
-
Discharge Instructions:
Sleep Apnea Risk Intermediate
Discharge Diagnosis/Procedures Recurrent pleural effusion, ESRD
Diet 2 Gram Sodium,Other diet
Additional Diets 2 Gram potassium, 40 ounce daily fluid
restriction
Activity As tolerated
Driving Restrictions As prior to admission
Bathing Restrictions None
Instructions:
Stand-Alone Forms:
Changes to Home Medications: No
Discharge Medications:
DC Medications w/original date entered in [facility]
lamotrigine 100 mg tablet 100 mg PO BID Neurological Condition 07/24/19
ezetimibe 10 mg tablet 10 mg PO HS High cholesterol 08/26/19
rosuvastatin 10 mg tablet 10 mg PO DAILY High cholesterol 08/26/19
aspirin 81 mg tablet,delayed release 81 mg PO DAILY Blood clot prevention/tx 08/27/19
allopurinol 100 mg tablet 100 mg PO DAILY Gout 06/15/20
gabapentin 100 mg capsule (Neurontin) 100 mg PO TID Pain 09/26/21
montelukast 10 mg tablet (Singulair) 10 mg PO UD bone pain prevention 09/26/21
daratumumab 20 mg/mL intravenous solution (Darzalex) 1,800 mg IV QMONTH Cancer 04/20/23
venetoclax 100 mg tablet (Venclexta) 200 mg PO DAILY Cancer 04/20/23
risperidone 0.25 mg tablet 0.25 mg PO HS Mental Health/Anxiety 08/06/23
hydralazine 10 mg tablet 10 mg PO TID #90 tabs 08/21/23
isosorbide mononitrate 30 mg tablet,extended release 24 hr 30 mg PO DAILY HEART CONDITION #0 tabs 08/21/23
amiodarone 200 mg tablet 100 mg PO SUTUTHSA@0800 Arrhythmia 12/25/23
benzonatate 100 mg capsule 100 mg PO TIDPRN PRN cough #10 caps 12/27/23
acyclovir 200 mg capsule 200 mg PO BID #10 caps 01/02/24
furosemide 80 mg tablet 80 mg PO BID #60 tabs 01/02/24
spironolactone 50 mg tablet 50 mg PO DAILY #30 tabs 01/02/24
benzonatate 100 mg capsule 100 mg PO TID PRN Cough #14 caps 01/03/24
Home Medication Changes
Pending Results: No
--- NOTE | 2024-01-03 11:11 | W.PN.NEPH.PH ---
Today's Communication / Plan
-
dc
Assessment/Plan
-
Impression:
End-stage renal disease Sunday [facility] unit
Hypertension
Recurrent left pleural effusion, hydropneumothorax
Anemia
Coronary artery disease with multiple stents
Atrial fibrillation
Left IJ tunneled hemodialysis cath
History of AL amyloidosis/multiple myeloma
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
Plan:
lasix BID
HD tomorrow OP unit
for dc
-
-
Date of Service: January 03, 2024
CC / HPI / ROS
-
Chief Complaint:
ESRD
History of Present Illness:
ESRD MWF [facility] diaysis
BP stable
Tolerated dialysis yesterday
Review of Systems:
no chest pain or sob
Labs
-
Labs:
WBC 5.8 10^3/uL (4.8-10.8) 12/31/23 08:16
RBC 3.89 10^6/uL (4.70-6.10) L 12/31/23 08:16
Hgb 10.8 g/dL (13.0-18.0) L 01/02/24 13:55
Hct 33.4 % (39.0-52.0) L 01/02/24 13:55
Plt Count 188 10^3/uL (130-400) 12/31/23 08:16
Sodium 135 mmol/L (135-145) 01/02/24 13:55
Potassium 4.6 mmol/L (3.5-5.1) 01/02/24 13:55
Chloride 98 mmol/L (98-107) 01/02/24 13:55
Carbon Dioxide 30 mmol/L (22-30) 01/02/24 13:55
BUN 45 mg/dl (9-20) H 12/31/23 08:16
Creatinine 3.4 mg/dL (0.7-1.3) H 12/31/23 08:16
eGFR 18.19 12/31/23 08:16
Glucose 96 mg/dl (70-99) 12/31/23 08:16
Calcium 8.2 mg/dl (8.4-10.2) L 12/31/23 08:16
Albumin 2.9 g/dl (3.5-5.0) L 12/29/23 21:47
Physical Exam
-
Vital Signs:
Vital Signs
Temp Pulse Resp BP Pulse Ox
98.8 F 73 16 149/65 94
01/03/24 07:38 01/03/24 07:38 01/03/24 07:38 01/03/24 08:25 01/03/24 08:30
Cardiovascular:: Regular rate and rhythm
Respiratory:: Bilateral: CTA
Lung Excursion:: Normal
Abdomen:: Nontender and Soft
Bowel Sounds:: Normal
Extremity Edema:: None: Bilateral:
== END 2024-01-03 11:13 | disposition home or self-care (01) | DRG 640 ==
LOC: 3 WEST ACU 09:27
PROVIDERS: Internal Medicine; Physician Assistant; Radiology Vascular & Interventional Radiology; Specialist; ADMITTING PHYSICIAN Internal Medicine; ATTENDING PHYSICIAN Hospitalist; CONSULT PHYSICIAN Internal Medicine Critical Care Medicine; EMERGENCY PHYSICIAN Emergency Medicine; FAMILY PHYSICIAN Internal Medicine; OTHER PHYSICIAN Specialist
PROC: 5A1D70Z Performance of Urinary Filtration, Intermittent, Less than 6 Hours Per Day (ICD-10-PCS; 2023-12-31)
PROC: 0W9B3ZZ Drainage of Left Pleural Cavity, Percutaneous Approach (ICD-10-PCS; 2023-12-31)
DX: E87.70 Fluid overload, unspecified (principal); N18.6 End stage renal disease; I13.2 Hypertensive heart and chronic kidney disease with heart failure and with stage 5 chronic kidney disease, or end stage renal disease; C90.00 Multiple myeloma not having achieved remission; E85.4 Organ-limited amyloidosis; J93.9 Pneumothorax, unspecified; J91.8 Pleural effusion in other conditions classified elsewhere; I50.22 Chronic systolic (congestive) heart failure; I43 Cardiomyopathy in diseases classified elsewhere; I48.0 Paroxysmal atrial fibrillation; D63.1 Anemia in chronic kidney disease; M10.9 Gout, unspecified; G62.0 Drug-induced polyneuropathy; T45.1X5A Adverse effect of antineoplastic and immunosuppressive drugs, initial encounter; F32.A Depression, unspecified; E78.00 Pure hypercholesterolemia, unspecified; E88.09 Other disorders of plasma-protein metabolism, not elsewhere classified; J44.9 Chronic obstructive pulmonary disease, unspecified; I25.10 Atherosclerotic heart disease of native coronary artery without angina pectoris; Z96.653 Presence of artificial knee joint, bilateral; Z99.2 Dependence on renal dialysis; Z87.891 Personal history of nicotine dependence; Z88.1 Allergy status to other antibiotic agents; Z88.8 Allergy status to other drugs, medicaments and biological substances; Z88.0 Allergy status to penicillin; Z79.899 Other long term (current) drug therapy; Z79.82 Long term (current) use of aspirin; Z95.5 Presence of coronary angioplasty implant and graft
CPT/HCPCS: 88305; 32555; 71045; 71046; 71250; 80048; 80051; 80053; 82042; 82945; 83615; 83986; 84155; 84157; 84478; 85014; 85018; 85025; 85027; 87015; 87070; 87205; 88112; 89051; 97116; 97163; 97167; 99285; G0257; P9047

== ENCOUNTER 2024-01-06 17:16 | Inpatient (IN) | payer MEDICARE, SELFPAY ==
[2024-01-06] VITALS (10 sets, daily range): BP systolic 89–115; BP diastolic 48–58; BMI 23.3; BMI 22.0
--- NOTE | 2024-01-06 14:48 | ED.GENMED ---
History of Present Illness
General
Chief Complaint: Breathing Problem
Source: patient
Exam Limitations: none
Time Seen by Provider: 01/06/24 14:27
Nursing documentation reviewed up to this point in time: agreed with
History of Present Illness
History of Present Illness:
73-year-old male with history A-fib, hypertension, recurrent pleural effusions presenting to the emergency department with shortness of breath. Patient reports shortness of breath with very minimal exertion that he noticed this morning. Symptoms
feel similar to prior pleural effusions. Patient most recently hospitalized from 12/29/2023 to 01/03/2024 for left sided pleural effusion requiring thoracentesis. Patient did have mild cough this morning, as well with clear sputum. No hemoptysis.
Patient did notice his right hand seemed swollen this morning, as well but denies any numbness/tingling. No trauma
Patient denies any fevers or chills. No chest pain. No sick contacts.
Patient had last dialysis session on cheduled for tomorrow, Sunday.
Past History
Past History
ED Past Medical History: Arrthythmia (Atrial fib), CAD, Cancer (multiple myeloma, Skin CA), CHF, HTN, Hypercholesterolemia, PR, Renal failure (Dialysis M-W-F), Psychiatric (Depression) and Other (chronic renal disease, amyloidosis, Syncope, Renal
calculus, Lymes, )
ED Past Surgical History: Cardiac (Stents X 4), Orthopedic (Cancer removed from left shoulder, Left knee meniscus, Right rotator cuff, , Bilateral knee replacement) and Other (Hernia repair, )
Social History
Tobacco: Former smoker
Alcohol: Occasional
Drug: None
Personal:
Living: alone
Employment: Not employed
Review of Systems
Review of Systems
Allergies reviewed?: Yes
All Other Systems: ROS reviewed and negative except as documented in HPI and ROS
Phy Exam
Physical Exam
Physical Exam:
Vitals: Patient's vital signs are stable. Afebrile
General: Patient is in no acute distress. Resting comfortably in bed
Skin: Warm and dry, no rashes or lesions
Head: Normocephalic, atraumatic
Eyes: Sclera nonicteric. EOMs intact. No nystagmus.
Throat: Protecting airway
Neck: Normal ROM, no cervical spine tenderness, no meningismus
Cardiac: Regular rate and rhythm, no murmurs.
Pulm: Oxygen saturation 97 on room air. In no apparent respiratory distress. Decreased breath sounds at left base.
Abdomen: No abdominal tenderness.
Extremities: Mild nonpitting edema to right hand. Right upper extremity neurovascular intact with palpable right radial pulse. no evidence of cyanosis or edema in bilateral lower extremity. Palpable distal pulses
Neuro: AAOx3. CN II-XII intact. No focal neurologic deficits.
Psychiatric: Normal affect.
Scores
Heart Failure Risk
Heart Failure Risk Score: Yes
History of Stroke or TIA: No
History of intubation for respiratory distress: No
Heart rate on ED arrival >/= 110: No
SaO2 <90% on arrival on room air: No
HR >/=110 during 3min walk test (or too ill to perform test): No
ECG has acute ischemic changes: No
Urea >/=12mmol/L (BUN 33.6mg/dL): Yes
Serum CO2>/=35mmol/L: No
Troponin I or T elevated to PR Level (0.4mg/dL): No
NT-proBNP >/=5,000ng/L (5,000pg/ml): No
HF Risk Score: 1
Admission Status: MEDIUM RISK 5.1% Consider observation or discharge to home with homecare & f/u visit to PCP/Audit Consultant, or SNF for treatment
Course
Orders/Labs/Results
Orders:
Orders
01/06/24 14:09
EKG [Electrocardiogram (*1)] Urgent
Reason for Study: Chest Pain
EKG- Treatment ONCE
01/06/24 14:45
CR Chest - 2 Views Urgent
Comment: hx pleural effusion
Reason For Exam: exertional SOB, cough
01/06/24 Dinner
Regular
At Your Request: Full Participation
01/06/24 15:03
Complete Blood Count/With Diff Urgent
Comprehensive Metabolic Panel Urgent
Troponin I Urgent
01/06/24 16:01
COVID-19 Antigen Urgent
Source: Nasal Swab
Influenza A+B Rapid Molecular Urgent
KRISTA Source: Nasal Swab
Specimen Description:
01/06/24 17:04
Admit/Transfer Patient As Directed
Co-Sign Provider:
Level of Care: Inpatient admission
Assign to:: Medical/Surgical
Physician / Group: pleural effusion
Diagnosis: pleural effusion
Reason for Hospitalization: pleural effusion
Expected length of stay greater than two midnights?: Yes
ELOS- Estimated Length of Stay in days: 2
I certify the patient meets the requirements for IP care: Yes
Code Status As Directed
Resuscitation Status: Full Code
PRN Pain Medication Management As Directed
May give lesser potent ordered pain med per pt: Yes
preference::
Protocol:: Medication orders for pain may be administered in a
manner that supports deferring to patient preference
when the pt is:
- Requesting an ordered lesser potent pain medication.
Least to most potent pain medications are defined
as: acetaminophen < NSAID < tramadol < opioids
(morphine, oxycodone, hydromorphone).
- Requesting a lesser dose of the same medication IF
ORDERED.
- Requesting a less intrusive route of administration
if both routes are prescribed by the provider (PO <
IV).
01/06/24 18:19
Benzonatate [Tessalon Perles] 100 mg PO TIDPRN PRN
Docusate W/Senna [Senokot-S] 1 tablet PO BIDPRN PRN
Montelukast Sodium [Singulair] 10 mg PO QPM
01/06/24 18:19
Activity As Directed
Activity Level: As Tolerated
Vital Signs As Directed
Frequency: Per unit guidelines
DX Deep Vein Thrombosis Video Routine
01/06/24 20:00
Acyclovir [Zovirax] 200 mg PO BID
Furosemide [Lasix] 80 mg PO BID AT 0800,1600
Heparin 5,000 units SC Q12
Lamotrigine [Lamictal] 100 mg PO BID
01/06/24 22:00
Ezetimibe [Zetia] 10 mg PO HS
Gabapentin [Neurontin] 100 mg PO TID
HydrALAZINE [Apresoline] 10 mg PO TID
Risperidone [Risperdal] 0.25 mg PO HS
01/07/24 06:00
Complete Blood Count/With Diff IN AM
Comprehensive Metabolic Panel IN AM
01/07/24 08:00
Allopurinol [Zyloprim] 100 mg PO DAILY
Aspirin Low Dose EC [Aspir Low (Enteric Coated)] 81 mg PO DAILY
ISOSORBIDE MONOnitrate ER [Imdur (Extended Release)] 30 mg PO DAILY
Rosuvastatin Calcium [Crestor] 10 mg PO DAILY
Spironolactone [Aldactone] 50 mg PO DAILY
venetoclax [Venclexta] 200 mg PO DAILY
01/08/24 08:00
Amiodarone [Pacerone] 100 mg PO SUTUTHSA@0800
Abnormal Lab Results
01/06/24
15:03
RBC 3.80 L 10^6/uL
(4.70-6.10)
Hgb 10.5 L g/dL
(13.0-18.0)
Hct 33.0 L %
(39.0-52.0)
MCHC 31.8 L g/dL
(33.0-37.0)
RDW 16.6 H %
(11.5-14.5)
Abs Immat Gran (auto) 0.1 H 10^3/uL
(0-0.05)
Absolute Lymphs (auto) 0.4 L 10^3/uL
(1.2-3.4)
Immature Gran % 1.1 H %
(0-0.5)
Neutrophils % 82.6 H %
(42.2-75.2)
Lymphocytes % 6.5 L %
(20.5-51.1)
Chloride 97 L mmol/L
(98-107)
BUN 36 H mg/dl
(9-20)
Creatinine 3.2 H mg/dL
(0.7-1.3)
Glucose 107 H mg/dl
(70-99)
Calcium 8.3 L mg/dl
(8.4-10.2)
Troponin I 0.147 H* ng/ml
Total Protein 5.2 L g/dl
(6.3-8.2)
Albumin 2.9 L g/dl
(3.5-5.0)
01/06/24 15:03
01/06/24 15:03
Vital Signs
Blood pressure: 115/58
Initial and Last Documented VS:
Initial Vital Signs
Temp Pulse Resp BP Pulse Ox
98 F 71 16 89/48 100
01/06/24 14:07 01/06/24 14:07 01/06/24 14:07 01/06/24 14:07 01/06/24 14:07
Last Documented Vital Signs
Temp Pulse Resp BP Pulse Ox
98.5 F 68 20 105/56 98
01/06/24 23:17 01/06/24 23:17 01/06/24 23:17 01/06/24 23:17 01/06/24 23:17
MDM/Problems Addressed
Differential Diagnosis Includes:
Not limited to: Pleural effusion, pneumothorax, bronchitis, pneumonia, CHF, cardiac arrhythmia, ACS, anemia etc.
MDM/Problems Addressed:
73 year old male presenting with shortness of breath. Patient does have recurrent left sided pleural effusion with most recent thoracentesis 12/30. Patient has stable vital signs w/ O2 saturation 95 on room air. Exam as above. Suspect symptoms
secondary to recurrent pleural effusion. Will check labs and chest xray. EKG without acute ischemic changes.
Chronic conditions affecting care:
Atrial fibrillation, hypertension, CKD, recurrent pleural effusion
Acute Exacerbation and/or Progression of Chronic Illness:
Acute left sided pleural effusion
*Radiology
Radiology exam reviewed: preliminary read by ED provider (left sided pleural effusion)
*Pulse Oximetry
Patient hypoxic: no
*EKG
Interpreted by ED Provider?: Yes
EKG Intrepretation Date: 01/06/24
Interpretation: abnormal
Comparison EKG: changes noted
Heart Rate: 79
Rate: normal
Rhythm: sinus and ventricular paced
Ischemia: non-specific ST changes
*Ply Cutter Interpretation
Rate: normal
Interpretation: abnormal
Heart Rate: 68
Rhythm: ventricular paced
*Critical Care Note
Total Time (30-74mins, 75-104mins- exclusive of procedures): Not Applicable
Patient Management
Discussion with other providers: Hospitalist
Escalation/DeEscalation of care consider admission/obs:
Admit for further management / thoracentesis
Update Note
Update Note:
Update: labs reviewed. Kidney function stable. Troponin elevation chronic and stable - do not suspect ACS. Chest xray shows moderate left sided pleural effusion. Patient oxygenating well on room air and remains stable. However - he is quite
symptomatic with minimal exertion. He will likely require thoracentesis. Patient admitted to hospitalist service in stable condition for further management.
ED Attending Note
-
Portions of this chart may have been created with voice recognition software.� Occasional wrong word or��sound alike� substitutions may have occurred due to the inherent limitations of voice recognition software.
Discharge Plan
Departure
Patient Disposition: Admit
Date of Disposition: 01/06/24
Time of Disposition: 16:22
Presentation/result/management discussed w/ accepting MD/DO: Hospitalist
Discharge Problem:
Pleural effusion
Interventions
Interventions:
*Risk Screen - Suicide Last Done: 01/06/24 14:07
*General Assessment Last Done: 01/06/24 18:08
*Neglect/Abuse Screening Last Done: 01/06/24 14:07
ED- Fall Risk Assessment Last Done: 01/06/24 14:32
*ED COVID-19 Vaccine History Last Done: 01/06/24 14:31
*Nursing Disposition Last Done: 01/06/24 18:08
ED- Cardiac Assessment Last Done: 01/06/24 14:32
ED- Pulmonary Assessment Last Done: 01/06/24 14:32
Discharge Date and Time
Discharge Date/Time: 01/06/24 18:09
[2024-01-06 15:18] LABS: % Basophils 0.6 % (0-2); % Eosinophils 0.6 % (0-6); % Immature Granulocytes 1.1 % (0-0.5); % Lymphocytes 6.5 % (20.5-51.1); % Monocytes 8.6 % (1.7-9.3); % Neutrophils 82.6 % (42.2-75.2); Absolute Immature Granulocytes 0.1 10^3/uL (0-0.05); Absolute Lymphocytes 0.4 10^3/uL (1.2-3.4); Absolute Monocytes 0.5 10^3/uL (0.1-0.6); Absolute Neutrophils 5.2 10^3/uL (1.4-6.5); Hemoglobin 10.5 g/dL (13.0-18.0); Mean Corp Hgb Conc. 31.8 g/dL (33.0-37.0); Mean Corpuscular Hgb 27.6 pg (27.0-31.0); Mean Corpuscular Volume 86.8 fL (80.0-94.0); Mean Platelet Volume 9.4 fL (7.4-10.4); Nucleated Red Blood Cells % 0 % (-); Platelet Count 202 10^3/uL (130-400); Red Cell Dist. Width 16.6 % (11.5-14.5); White Blood Cell Count 6.3 10^3/uL (4.8-10.8)
[2024-01-06 15:29] LABS: ALT (SGPT) 19 U/L (0-50); AST (SGOT) 31 U/L (17-59); Albumin 2.9 g/dl (3.5-5.0); Alkaline Phosphatase 118 U/L (38-126); Blood Urea Nitrogen 36 mg/dl (9-20); Calcium 8.3 mg/dl (8.4-10.2); Carbon Dioxide 29 mmol/L (22-30); Chloride 97 mmol/L (98-107); Estimated Creatinine Clearance 20 ml/min; Glucose 107 mg/dl (70-99); Potassium 4.4 mmol/L (3.5-5.1); Sodium 136 mmol/L (135-145); Total Bilirubin 0.4 mg/dl (0.2-1.3); Total Protein 5.2 g/dl (6.3-8.2); eGFR 19.56
[2024-01-06 15:42] LABS: Troponin I 0.147 ng/ml
[2024-01-06 16:26] LABS: COVID-19 Antigen Negative (Negative)
--- NOTE | 2024-01-06 17:02 | HPS.HSE ---
Family Physician
-
Family Physician: Bang Lambert
Chief Complaint
-
shortness of breath
History of Present Illness
73-year-old male past medical history of CAD status post stents, HFrEF, paroxysmal atrial fibrillation on Eliquis, ESRD on hemodialysis Sunday, Sunday, Sunday,, multiple myeloma, amyloidosis, hypertension, gout, hyperlipidemia, normocytic
anemia, recurrent left pleural effusion, chemotherapy-induced neuropathy, depression presenting with shortness of breath. He reports shortness of breath with minimal exertion that he noticed this morning. Symptoms feel similar to prior pleural
effusions. He had mild cough this morning with clear sputum. He denies coughing up blood. His right hand seems swollen this morning but denies any numbness or tingling or trauma. He denies any fevers or chills. Denies chest pain or sick
contacts.
He last had dialysis on Sunday
Medical History
Past Medical History
Past Medical History: Reports Other (CAD status post stents, HFrEF, paroxysmal atrial fibrillation on Eliquis, ESRD on hemodialysis Sunday, Sunday, Sunday,, multiple myeloma, amyloidosis, hypertension, gout, hyperlipidemia, normocytic anemia,
recurrent left pleural effusion, chemotherapy-induced neuropathy, depression)
Past Surgical History: Reports Other ( Cardiac (Stents X 4), Orthopedic (Cancer removed from left shoulder, Left knee meniscus, Right rotator cuff, , Bilateral knee replacement) and Other (Hernia repair, )
Social History
Tobacco: Non-smoker
Alcohol: None
Drug: None
Family History
Family History: Not pertinent
Allergies / Home Medications
Allergies reflects when Allergies were last updated in [facility].
Home Medications with original date entered in [facility]
Allergy/Medication List:
Allergies
Allergy/AdvReac Type Severity Reaction Status Date / Time
atorvastatin Allergy MUSCLE Verified 01/06/24 14:07
CRAMPS
Cephalosporins Allergy kidney Verified 01/06/24 14:07
disease
coconut Allergy vomits Verified 01/06/24 14:07
penicillin V Allergy Vomiting Verified 01/06/24 14:07
pregabalin [From Lyrica] Allergy Tongue Verified 01/06/24 14:07
Swelling
simvastatin Allergy muscle Verified 01/06/24 14:07
cramps
Home Medications
lamotrigine 100 mg tablet 100 mg PO BID Neurological Condition 07/24/19
ezetimibe 10 mg tablet 10 mg PO HS High cholesterol 08/26/19
rosuvastatin 10 mg tablet 10 mg PO DAILY High cholesterol 08/26/19
aspirin 81 mg tablet,delayed release 81 mg PO DAILY Blood clot prevention/tx 08/27/19
allopurinol 100 mg tablet 100 mg PO DAILY Gout 06/15/20
gabapentin 100 mg capsule (Neurontin) 100 mg PO TID Pain 09/26/21
montelukast 10 mg tablet (Singulair) 10 mg PO UD bone pain prevention 09/26/21
daratumumab 20 mg/mL intravenous solution (Darzalex) 1,800 mg IV QMONTH Cancer 04/20/23
venetoclax 100 mg tablet (Venclexta) 200 mg PO DAILY Cancer 04/20/23
risperidone 0.25 mg tablet 0.25 mg PO HS Mental Health/Anxiety 08/06/23
hydralazine 10 mg tablet 10 mg PO TID #90 tabs 08/21/23
isosorbide mononitrate 30 mg tablet,extended release 24 hr 30 mg PO DAILY HEART CONDITION #0 tabs 08/21/23
amiodarone 200 mg tablet 100 mg PO SUTUTHSA@0800 Arrhythmia 12/25/23
benzonatate 100 mg capsule 100 mg PO TIDPRN PRN cough #10 caps 12/27/23
acyclovir 200 mg capsule 200 mg PO BID #10 caps 01/02/24
furosemide 80 mg tablet 80 mg PO BID #60 tabs 01/02/24
spironolactone 50 mg tablet 50 mg PO DAILY #30 tabs 01/02/24
Review of Systems
-
History Source: Patient
A 12 point ROS was completed and negative except as noted: Yes
Constitutional: Reports No Symptoms
EENT: Reports No Symptoms
Respiratory: Reports See HPI
Cardiac: Reports No Symptoms
Abdomen/GI: Reports No Symptoms
: Reports No Symptoms
Musculoskeletal: Reports No Symptoms
Skin: Reports No Symptoms
Neurological: Reports No Symptoms
Endocrine: Reports No Symptoms
Hematologic/Lymphatic: Reports No Symptoms
Psych: Reports No Symptoms
Physical Exam
Vital Signs
Vital Signs
Temp Pulse Resp BP Pulse Ox
98 F 66 21 106/52 96
01/06/24 14:07 01/06/24 16:45 01/06/24 16:45 01/06/24 16:00 01/06/24 16:45
Physical Exam
General: Well Developed, Well Nourished and No Apparent Distress
HEENT: NormoCephalic, Moist mucous membranes and Atraumatic
Respiratory: Clear and Other (dec breath sounds left )
Cardiac: S1/S2 and Regular Rhythm; No Murmur or Rub
GI: Soft, Non Tender, Non Distended and Normal Bowel Sounds; No Organomegaly
Rectal: Deferred by Provider
Musculoskeletal: No Clubbing, No Cyanosis and No Edema
Skin: No Rash
Neuro: Nonfocal/grossly intact
Laboratory Results
-
01/06/24 15:03
01/06/24 15:03
Laboratory Results
Total Bilirubin 0.4 mg/dl (0.2-1.3) 01/06/24 15:03
AST 31 U/L (17-59) 01/06/24 15:03
ALT 19 U/L (0-50) 01/06/24 15:03
Alkaline Phosphatase 118 U/L (38-126) 01/06/24 15:03
Troponin I 0.147 ng/ml H* 01/06/24 15:03
Data Reviewed
-
Lab Data: Labs Reviewed by me
Old Records: Reviewed
Impression/Plan
-
IMPRESSION:
PLAN:
#Recurrent left pleural effusion secondary to volume overload/CKD/hypoalbuminemia/multiple myeloma
# History of left-sided hydropneumothorax
-IR consulted for thoracentesis
-Pulmonary consulted
CAD status post stents
Chronic troponin elevation
-EKG shows atrial fibrillation
-Continue aspirin
-Continue isosorbide
Chronic HFrEF
-Continue Lasix
-Continue spironolactone
Paroxysmal atrial fibrillation
-Patient currently in atrial fibrillation
-Continue amiodarone
History of amyloidosis
History of retroperitoneal hemorrhage from left kidney
ESRD on hemodialysis Sunday, Sunday, Sunday
-Nephrology consulted for dialysis tomorrow
Essential hypertension
Hypercholesterolemia
-Continue Zetia, statin
Multiple myeloma on immunotherapy
-Continue Venclexta
-On Darzalex
History of chemotherapy-induced neuropathy
-Continue gabapentin
Gout
-Continue allopurinol
Depression
-Continue Lamictal, risperidone
Full code
DVT prophylaxis
Regular diet
[2024-01-06] MEDS: SINGULAIR PO (20:20)
[2024-01-06] MEDS: HEPARIN 5000 UNITS SC (20:22)
[2024-01-06] MEDS: ZOVIRAX 200 MG PO (20:22)
[2024-01-06] MEDS: LAMICTAL 100 MG PO (20:22)
[2024-01-06] MEDS: LASIX 80 MG PO (20:31)
[2024-01-06] MEDS: ZETIA 10 MG PO (21:11)
[2024-01-06] MEDS: RISPERDAL 0.25 MG PO (21:11)
[2024-01-06] MEDS: NEURONTIN 100 MG PO (21:11)
[2024-01-06 21:40] LABS: Troponin I 0.144 ng/ml
[2024-01-06] MEDS: APRESOLINE 10 MG PO (22:34)
[2024-01-06] MEDS: TESSALON PERLES 100 MG PO (22:39)
[2024-01-07 05:47] LABS: % Basophils 0.8 % (0-2); % Eosinophils 1.6 % (0-6); % Immature Granulocytes 0.8 % (0-0.5); % Lymphocytes 9.4 % (20.5-51.1); % Monocytes 9.2 % (1.7-9.3); % Neutrophils 78.2 % (42.2-75.2); Absolute Eosinophils 0.1 10^3/uL (0-0.7); Absolute Lymphocytes 0.5 10^3/uL (1.2-3.4); Absolute Monocytes 0.5 10^3/uL (0.1-0.6); Absolute Neutrophils 3.9 10^3/uL (1.4-6.5); Hematocrit 32.1 % (39.0-52.0); Mean Corp Hgb Conc. 31.2 g/dL (33.0-37.0); Mean Corpuscular Hgb 27.3 pg (27.0-31.0); Mean Corpuscular Volume 87.7 fL (80.0-94.0); Mean Platelet Volume 10.3 fL (7.4-10.4); Nucleated Red Blood Cells % 0 % (-); Platelet Count 195 10^3/uL (130-400); Red Blood Cell Count 3.66 10^6/uL (4.70-6.10); Red Cell Dist. Width 16.7 % (11.5-14.5)
[2024-01-07 06:00] VITALS: BMI 22.0
[2024-01-07 06:43] LABS: LDH 208 U/L (120-246)
[2024-01-07 07:04] LABS: ALT (SGPT) 17 U/L (0-50); AST (SGOT) 29 U/L (17-59); Albumin 2.7 g/dl (3.5-5.0); Alkaline Phosphatase 115 U/L (38-126); Blood Urea Nitrogen 38 mg/dl (9-20); Calcium 8.1 mg/dl (8.4-10.2); Carbon Dioxide 30 mmol/L (22-30); Chloride 96 mmol/L (98-107); Estimated Creatinine Clearance 19 ml/min; Glucose 94 mg/dl (70-99); Potassium 4.6 mmol/L (3.5-5.1); Sodium 136 mmol/L (135-145); Total Bilirubin 0.3 mg/dl (0.2-1.3); Total Protein 4.6 g/dl (6.3-8.2); eGFR 18.19
--- NOTE | 2024-01-07 07:25 | CON.PUL ---
Consultation
Consultation Request
Date/Time Consultation Requested: 01/06
Date/Time Consultation Performed: 01/06
Reason for Consultation: Pleural effusion
Medical History
-
History of Present Illness:
History obtained through chart and from the patient. Patient is a 73-year-old male I was recently discharged 01/03/2024 at which time he was treated for recurrent left pleural effusion. Patient has been on hemodialysis since July 2023. CT of the
chest obtained during recent hospital stay which showed no obvious parenchymal abnormality. There was a small left basilar pneumothorax. Patient was feeling well, but returned 01/05 because of increased shortness of breath with activity in the
morning. Patient described a mild cough, similar to that he had before. Denies hemoptysis, fevers, chills, pleurisy, lightheadedness, dizziness. Denies any falls or trauma. Upon arrival to [facility], afebrile, pulse 71, breathing at 16,
blood pressure 89/48, 100% saturation. Chest x-ray suggested worsening left pleural effusion. Patient was admitted for further management. He is still awaiting left thoracentesis but feels improved overall
.
PMH: ESRD on HD since July 2023 in [place], recurrent left pleural effusion with small hydropneumothorax, coronary disease with stent, atrial fibrillation, history of amyloidosis/multiple myeloma. History of inferior renal artery hemorrhage
status post embolization July 2023 resulting in end-stage renal disease. History of heart failure, hypertension, hyperlipidemia, chemotherapy-induced neuropathy. Had left shoulder cancer removed, bilateral knee replacement and hernia repair
Past Medical History
Past Medical History: None (See above)
Past Surgical History: None (See above)
Social History
Tobacco: Former Smoker (Quit , [id number])
Alcohol: Occasional
Drug: None
Personal: Single
Living: Alone
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
Family History
Family History: Other (2 children healthy, 1 brother healthy. Family history negative for lung cancer, blood clots)
Allergies / Home Medications
Allergies
Allergy/AdvReac Type Severity Reaction Status Date / Time
atorvastatin Allergy MUSCLE Verified 01/06/24 14:07
CRAMPS
Cephalosporins Allergy kidney Verified 01/06/24 14:07
disease
coconut Allergy vomits Verified 01/06/24 14:07
penicillin V Allergy Vomiting Verified 01/06/24 14:07
pregabalin [From Lyrica] Allergy Tongue Verified 01/06/24 14:07
Swelling
simvastatin Allergy muscle Verified 01/06/24 14:07
cramps
Home Medications
�Medication �Instructions �Recorded �Confirmed �Last Taken �Type
lamotrigine 100 mg tablet 100 mg PO BID Neurological 07/24/19 01/06/24 01/06/24 History
Condition
ezetimibe 10 mg tablet 10 mg PO HS High cholesterol 08/26/19 01/06/24 01/05/24 History
rosuvastatin 10 mg tablet 10 mg PO DAILY High cholesterol 08/26/19 01/06/24 01/06/24 History
aspirin 81 mg tablet,delayed 81 mg PO DAILY Blood clot 08/27/19 01/06/24 01/06/24 History
release prevention/tx
allopurinol 100 mg tablet 100 mg PO DAILY Gout 06/15/20 01/06/24 01/06/24 History
gabapentin 100 mg capsule 100 mg PO TID Pain 09/26/21 01/06/24 01/06/24 History
(Neurontin)
montelukast 10 mg tablet 10 mg PO UD bone pain prevention 09/26/21 01/06/24 12/24/23 History
(Singulair)
daratumumab 20 mg/mL intravenous 1,800 mg IV QMONTH Cancer 04/20/23 01/06/24 12/24/23 History
solution (Darzalex)
venetoclax 100 mg tablet 200 mg PO DAILY Cancer 04/20/23 01/06/24 12/25/23 History
(Venclexta)
risperidone 0.25 mg tablet 0.25 mg PO HS Mental Health/Anxiety 08/06/23 01/06/24 01/05/24 History
hydralazine 10 mg tablet 10 mg PO TID #90 tabs 08/21/23 01/06/24 01/06/24 Rx
isosorbide mononitrate 30 mg 30 mg PO DAILY HEART CONDITION #0 08/21/23 01/06/24 01/06/24 Rx
tablet,extended release 24 hr tabs
amiodarone 200 mg tablet 100 mg PO SUTUTHSA@0800 Arrhythmia 12/25/23 01/06/24 01/06/24 History
benzonatate 100 mg capsule 100 mg PO TIDPRN PRN cough #10 caps 12/27/23 01/06/24 Unknown Rx
acyclovir 200 mg capsule 200 mg PO BID #10 caps 01/02/24 01/06/24 01/06/24 Rx
furosemide 80 mg tablet 80 mg PO BID #60 tabs 01/02/24 01/06/24 01/06/24 Rx
spironolactone 50 mg tablet 50 mg PO DAILY #30 tabs 01/02/24 01/06/24 01/06/24 Rx
Review of Systems
-
All other systems: Negative unless noted
Vitals / Labs / Diagnostic Testing
Vital Signs
Temp Pulse Resp BP Pulse Ox
98.5 F 68 20 105/56 98
01/06/24 23:17 01/06/24 23:17 01/06/24 23:17 01/06/24 23:17 01/06/24 23:17
Lab Data
01/07/24 05:32
01/07/24 05:32
Microbiology
01/06/24 16:01 Nasal Swab Influenza Types A & B (DEBRA) - Final
Negative for Influenza A & B, NAAT
Negative results must be combined with clinical observations
and patient history.
Nucleic Acid Amplification test (NAAT)performed on the
[employer] platform.
Diagnostic Testing:
Physical Exam
-
HEENT: Normocephalic, Anicteric and Other (Left anterior chest HD catheter)
Cardiovascular: S1/S2, Irregular Rhythm, Murmur (n), Rub (n) and Peripheral Edema (n)
Respiratory: Wheeze (n), Rales ( few right basilar), Rhonchi and Other (Decreased at base, left worse than right)
GI: Soft, Non Distended and Non Tender
Neurology: Awake, Alert and No Motor Deficits (Able to sit up without assistance)
Skin: Good Color
General: Comfortable
Assessment
-
73-year-old male with history of heart failure, coronary disease, recently diagnosed with end-stage renal disease post renal artery hemorrhage requiring embolization July 2023 on hemodialysis with recurrent pleural effusions, presents with increased
shortness of breath and cough and increased left pleural effusion. We are asked to help from pulmonary standpoint 01/07/2024
Acute shortness of breath, cough x 24hrs
increased left pleural effusion
Recurrent bilateral pleural effusion
Thoracentesis 04/16/2023, 11/02/2023, 12/26/2023, 12/31/2023
Initially transudate, now exudate. Cytology negative
Chronic left hydropneumothorax per CT imaging
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
July of 2023: Admitted with hypovolemic shock secondary to left-sided retroperitoneal hemorrhage. Status post coil embolization by interventional radiology.
Coronary artery disease s/p Cardiac stents x 4 2010
Atrial fibrillation s/p CV
Stage 3b chronic kidney disease
HTN/HLD
Chronic HFpEF
EF 46%, improved
COPD --moderate obstruction PFT 2020/moderately severe restriction/moderate diffusion impairment
Pleural effusion s/p L thora 04/16/23 and 04/05/23- 1200mL and 1000mL of yellow pleural fluid.
Left knee torn meniscus s/p arthroscopic repair 2000
Torn rotator cuff x 3 97, 98, 2000
Hernia repair
B/l knees replaced 2010 with revisions 2012
MM/amyloid follows with Dr Crocker on Darzalex for treatment
Former smoker, 30+ pack years
Plan/recommendations
At this time, patient appears to be comfortable. There is an increased left pleural effusion on chest x-ray
Recent CT imaging confirms left sided hydropneumothorax.
Suspect recurrent pleural effusions are multifactorial
Has had transudative effusion in the past, most recently exudate, cytology negative
Moving forward
Will proceed with repeat left thoracentesis. Send fluid for cytology
Not ideal candidate for chronic catheter, Pleurx catheter
Lets get a sense of how often this recurs. He was pleural effusion for 2 months, suggesting this may be multifactorial, volume related
Low protein amounts on prior pleural effusion suggest this is not secondary to multiple myeloma
Patient sees nephrology in [facility] although his other physicians are in the [facility] region
He would benefit from pulmonary follow-up
Will follow
[2024-01-07 08:10] VITALS: BP 112/54; BP_SYST 70
[2024-01-07 08:35] VITALS: BP 125/57
[2024-01-07 08:47] VITALS: BP 107/54
[2024-01-07 08:48] LABS: Body Fluid pH 7.47
[2024-01-07 09:03] LABS: Body Fluid Mononuclear 93.4 %; Body Fluid Polymorphonuclear 6.6 %; Body Fluid WBC 426 /CUMM
[2024-01-07 09:13] LABS: Body Fluid Amylase < 30 U/L; Body Fluid Glucose 93 mg/dl; Body Fluid LDH 159 U/L; Body Fluid Protein < 2.0 g/dl; Body Fluid Triglycerides < 30 mg/dl
[2024-01-07] MEDS: ALDACTONE 50 MG PO (09:26)
[2024-01-07] MEDS: ZYLOPRIM 100 MG PO (09:27)
[2024-01-07] MEDS: LAMICTAL 100 MG PO ×2 (09:27→22:12)
[2024-01-07] MEDS: APRESOLINE 10 MG PO ×3 (09:27→22:13)
[2024-01-07] MEDS: ZOVIRAX 200 MG PO ×2 (09:27→22:12)
[2024-01-07] MEDS: IMDUR (EXTENDED RELEASE) 30 MG PO (09:28)
[2024-01-07] MEDS: LASIX 80 MG PO ×2 (09:28→16:42)
[2024-01-07] MEDS: CRESTOR 10 MG PO (09:28)
[2024-01-07] MEDS: ASPIR LOW (ENTERIC COATED) 81 MG PO (09:28)
[2024-01-07] MEDS: NEURONTIN 100 MG PO ×3 (09:28→22:13)
[2024-01-07] MEDS: HEPARIN 5000 UNITS SC ×2 (09:28→22:11)
[2024-01-07 09:54] LABS: Body Fluid Second Tech CMB
--- NOTE | 2024-01-07 13:06 | CM ---
Reviewed the chart notes and spoke with the patient at the bedside. The patient was recently hospitalized (12/29-01/02). The patient resides alone in a one story home with two steps to enter. The patient reports only DME is a cane. The patient
reports no VN or SNF in the past. The patient goes to M[facility]F at [facility]. The patient confirmed [email or web address] CM continues to be available to patient/family and is monitoring medical
plan for needs at discharge.
Plan: Discharge to home when medically stable.
[2024-01-07 13:48] VITALS: BMI 22.0
--- NOTE | 2024-01-07 15:53 | W.CON.NEPH ---
Consultation
-
Date/Time Consultation Requested: 01/07/24 0742
Date/Time Consultation Performed: 01/07/24 1538
Requesting Provider: Ibrahima Nassar
Performing Provider: Patricia Christianson
Reason for Consultation: ESRD
Medical History
-
Chief Complaint: SOB
History of Present Illness:
73y/o M with ESRD on HD recently started in July 2023. He has a left IJ tunneled catheter and receives dialysis at [facility] on MWF, HTN on a multidrug regimen, ASCVD on ASA, imdur, recurrent pleural effusion requiring thoracentesis 2 admits
in December, last d/c on 01/01 returns with shortness of breath. He underwent thoracentesis 1400cc of his left side with some improvement. He said he received his usual dialysis treatment as outpatient unit on Sunday and this was without
difficulty. He reports sob develops rather quickly. Currently her feels well, dry cough no change. No CP or fever. He was seen by pulm today. NO v/v or diarrhea. UOP only minimal.
Past Medical History
ASCVD
Hypertension
Chronic HFrEF
Paroxysmal Atrial Fibrillation
ESRD on HD MWF left CVC
Multiple Myeloma / Amyloidosis
Gout
Anemia of Chronic Disease
Recurrent Left Pleural Effusion
Chemo-Induced Peripheral Neuropathy
Depression
Retroperitoneal Bleeding on Eliquis
Past Surgical History: Other (Left IJ HD Catheter R ACW Port PTCA with Stent (x 4) Bilateral TKA Hernia Repair Right Rotator Cuff Repair (x 2))
Social History
Tobacco: Former Smoker (quit in )
Alcohol: Occasional
Drug: None
Family History
Family History: Not Pertinent
Allergies / Home Medications
Allergy/AdvReac Type Severity Reaction Status Date / Time
atorvastatin Allergy MUSCLE Verified 01/06/24 14:07
CRAMPS
Cephalosporins Allergy kidney Verified 01/06/24 14:07
disease
coconut Allergy vomits Verified 01/06/24 14:07
penicillin V Allergy Vomiting Verified 01/06/24 14:07
pregabalin [From Lyrica] Allergy Tongue Verified 01/06/24 14:07
Swelling
simvastatin Allergy muscle Verified 01/06/24 14:07
cramps
�Medication �Instructions �Recorded �Confirmed �Type
lamotrigine 100 mg tablet 100 mg PO BID Neurological 07/24/19 01/06/24 History
Condition
ezetimibe 10 mg tablet 10 mg PO HS High cholesterol 08/26/19 01/06/24 History
rosuvastatin 10 mg tablet 10 mg PO DAILY High cholesterol 08/26/19 01/06/24 History
aspirin 81 mg tablet,delayed 81 mg PO DAILY Blood clot 08/27/19 01/06/24 History
release prevention/tx
allopurinol 100 mg tablet 100 mg PO DAILY Gout 06/15/20 01/06/24 History
gabapentin 100 mg capsule 100 mg PO TID Pain 09/26/21 01/06/24 History
(Neurontin)
montelukast 10 mg tablet 10 mg PO UD bone pain prevention 09/26/21 01/06/24 History
(Singulair)
daratumumab 20 mg/mL intravenous 1,800 mg IV QMONTH Cancer 04/20/23 01/06/24 History
solution (Darzalex)
venetoclax 100 mg tablet 200 mg PO DAILY Cancer 04/20/23 01/06/24 History
(Venclexta)
risperidone 0.25 mg tablet 0.25 mg PO HS Mental Health/Anxiety 08/06/23 01/06/24 History
hydralazine 10 mg tablet 10 mg PO TID #90 tabs 08/21/23 01/06/24 Rx
isosorbide mononitrate 30 mg 30 mg PO DAILY HEART CONDITION #0 08/21/23 01/06/24 Rx
tablet,extended release 24 hr tabs
amiodarone 200 mg tablet 100 mg PO SUTUTHSA@0800 Arrhythmia 12/25/23 01/06/24 History
benzonatate 100 mg capsule 100 mg PO TIDPRN PRN cough #10 caps 12/27/23 01/06/24 Rx
acyclovir 200 mg capsule 200 mg PO BID #10 caps 01/02/24 01/06/24 Rx
furosemide 80 mg tablet 80 mg PO BID #60 tabs 01/02/24 01/06/24 Rx
spironolactone 50 mg tablet 50 mg PO DAILY #30 tabs 01/02/24 01/06/24 Rx
Review of Systems
-
All complete 12 point ROS have been inquired and found negative other than stated in HPI
Physical Exam
Vital Signs
Vital Signs
Temp Pulse Resp BP Pulse Ox
97.4 F 70 16 107/54 92
01/07/24 08:35 01/07/24 09:28 01/07/24 08:47 01/07/24 09:28 01/07/24 11:54
Lab Results
WBC 5.0 10^3/uL (4.8-10.8) 01/07/24 05:32
RBC 3.66 10^6/uL (4.70-6.10) L 01/07/24 05:32
Hgb 10.0 g/dL (13.0-18.0) L 01/07/24 05:32
Hct 32.1 % (39.0-52.0) L 01/07/24 05:32
Plt Count 195 10^3/uL (130-400) 01/07/24 05:32
Sodium 136 mmol/L (135-145) 01/07/24 05:32
Sodium Cancelled 01/07/24 05:32
Potassium 4.6 mmol/L (3.5-5.1) 01/07/24 05:32
Potassium Cancelled 01/07/24 05:32
Chloride 96 mmol/L (98-107) L 01/07/24 05:32
Chloride Cancelled 10/21/24 05:32
Carbon Dioxide 30 mmol/L (22-30) 01/07/24 05:32
Carbon Dioxide Cancelled 01/07/24 05:32
BUN 38 mg/dl (9-20) H 01/07/24 05:32
BUN Cancelled 01/07/24 05:32
Creatinine 3.4 mg/dL (0.7-1.3) H 01/07/24 05:32
Creatinine Cancelled 01/07/24 05:32
eGFR 18.19 01/07/24 05:32
eGFR Cancelled 01/07/24 05:32
Glucose 94 mg/dl (70-99) 01/07/24 05:32
Glucose Cancelled 01/07/24 05:32
Calcium 8.1 mg/dl (8.4-10.2) L 01/07/24 05:32
Calcium Cancelled 01/07/24 05:32
Albumin 2.7 g/dl (3.5-5.0) L 01/07/24 05:32
Albumin Cancelled 01/07/24 05:32
CXR:
IMPRESSION:
No pneumothorax
Minimal residual left effusion
Physical Exam
General: Awake, Alert, Oriented, AOx3, No Distress and Nontoxic
HEENT: EOMI, Anicteric and Neck Supple
Respiratory: Crackels (bases)
Cardiac: S1/S2 and Regular Rate/Rhythm
Breast: Deferred by me
Abdomen: Soft, Nontender and Nondistended
Musculoskeletal: No Cyanosis and No Edema
Skin: No Rash
Neuro: Nonfocal/Grossly Intact
Psych: Mood/afflect pleasant, Insight/judgement good and Appropriate
Vascular Access: CVC
Data Reviewed
-
Labs: Labs Reviewed by me and Discussed with Patient
Assessment/Plan
-
Impression:
End-stage renal disease Sunday [place] unit
Hypertension
Recurrent left pleural effusion, s/p multiple thoracentesis
Anemia
Coronary artery disease with multiple stents
Atrial fibrillation
Left IJ tunneled hemodialysis cath
History of AL amyloidosis/multiple myeloma
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
Plan:
A/w symp recurrent plerual effusion s/p thoracentesis
will arrange HD today
UF as much he tolerates
strict renal diet and FR
cont lasix BID
BP stable on meds
need cytology per pulm
d/w pt
--- NOTE | 2024-01-07 15:59 | W.PN.HOSP.TC ---
Today's Communication/Plan
-
Assessment / Plan
Assessment / Plan
Physical Exam
NAD, resting comfortably in bed
Scleral anicteric
Moist mucous membranes
No JVD
CTA bilateral
Normal S1-S2 no murmurs
LACWPC CDI
Soft nontender nondistended bowel sounds active
No peripheral pitting edema
Moves extremities spontaneously
AAOx3
Assessment and Plan
Recurrent left-sided pleural effusion. Believed secondary to multifactorial etiology
-Pulmonary consult
-IR consulted
-Send fluid analysis of pleural studies
CAD continue aspirin isosorbide statin Zetia
ESRD consult nephrology for hemodialysis recommendations
HLD continue statin and Zetia
History of chemotherapy-induced neuropathy continue gabapentin
Anticipated Discharge: 24 - 48 hours
Subjective/Interval History
-
Date of Service: January 07, 2024
seen and examined. no new complaints. no acute overnight events
Objective Data
-
Labs:
Laboratory Results
01/07/24 01/07/24 01/07/24
05:32 05:32 05:32
WBC 5.0
Hgb 10.0 L
Hct 32.1 L
Plt Count 195
Sodium 136 Cancelled
Potassium 4.6 Cancelled
Chloride 96 L
Carbon Dioxide
BUN
Creatinine
Glucose
Calcium
Total Bilirubin
AST
ALT
Alkaline Phosphatase
01/07/24 01/07/24 01/07/24
05:32 05:32 05:32
WBC
Hgb
Hct
Plt Count
Sodium
Potassium
Chloride Cancelled
Carbon Dioxide 30 Cancelled
BUN 38 H Cancelled
Creatinine 3.4 H
Glucose
Calcium
Total Bilirubin
AST
ALT
Alkaline Phosphatase
01/07/24 01/07/24 01/07/24
05:32 05:32 05:32
WBC
Hgb
Hct
Plt Count
Sodium
Potassium
Chloride
Carbon Dioxide
BUN
Creatinine Cancelled
Glucose 94 Cancelled
Calcium 8.1 L Cancelled
Total Bilirubin 0.3
AST
ALT
Alkaline Phosphatase
01/07/24 01/07/24 01/07/24
05:32 05:32 05:32
WBC
Hgb
Hct
Plt Count
Sodium
Potassium
Chloride
Carbon Dioxide
BUN
Creatinine
Glucose
Calcium
Total Bilirubin Cancelled
AST 29 Cancelled
ALT 17 Cancelled
Alkaline Phosphatase 115
01/07/24
05:32
WBC
Hgb
Hct
Plt Count
Sodium
Potassium
Chloride
Carbon Dioxide
BUN
Creatinine
Glucose
Calcium
Total Bilirubin
AST
ALT
Alkaline Phosphatase Cancelled
Vital Signs:
Vital Signs
Temp Pulse Resp BP Pulse Ox
97.4 F 70 16 107/54 92
01/07/24 08:35 01/07/24 09:28 01/07/24 08:47 01/07/24 09:28 01/07/24 11:54
I&O
01/06/24 01/07/24 01/08/24
06:59 06:59 06:59
Intake Total 420 / 420
Balance 420 / 420
[2024-01-07 16:01] VITALS: BP 123/62
--- NOTE | 2024-01-07 17:38 | W.PN.NEPH.HD ---
Assessment
-
pt seen during HD
vitals stable
UF as tolerates, he is below EDW
CVC functions well
Progress Note - Hemodialysis
-
Date of Service: January 07, 2024
Duration: 30 minutes and 3 hours
Potassium Bath: 3
Calcium Bath: 2.5
Opti-Dialyzer: 160
Ultrafiltration: Other (2kg)
Blood Flow: 400
Dialysate Flow: 600
Heparin: no
EPO: 3000
[2024-01-07] MEDS: SINGULAIR 10 MG PO (18:02)
[2024-01-07] MEDS: FLEXBUMIN 25% FOR HEMODIALYSIS 12.5 GRAMS IV (18:40)
[2024-01-07] MEDS: MANNITOL 25% 12.5 GRAMS IV (18:40)
[2024-01-07] MEDS: RETACRIT 3000 UNITS IV (19:45)
[2024-01-07] MEDS: HEPARIN 2300 UNITS INTRACATH (20:47)
[2024-01-07] MEDS: CATHFLO/ACTIVASE 2 MG INTRACATH (20:49)
[2024-01-07] MEDS: ZETIA 10 MG PO (22:12)
[2024-01-07] MEDS: RISPERDAL 0.25 MG PO (22:13)
[2024-01-07 23:00] VITALS: BP 117/56
[2024-01-08 05:56] VITALS: BMI 21.3
[2024-01-08 07:25] VITALS: BP 118/60
[2024-01-08] MEDS: LASIX 80 MG PO ×2 (09:13→16:30)
[2024-01-08] MEDS: IMDUR (EXTENDED RELEASE) 30 MG PO (09:13)
[2024-01-08] MEDS: CRESTOR 10 MG PO (09:13)
[2024-01-08] MEDS: ZOVIRAX 200 MG PO ×2 (09:13→20:24)
[2024-01-08] MEDS: HEPARIN 5000 UNITS SC ×2 (09:13→20:25)
[2024-01-08] MEDS: ALDACTONE 50 MG PO (09:14)
[2024-01-08] MEDS: NEURONTIN 100 MG PO ×3 (09:14→21:44)
[2024-01-08] MEDS: ASPIR LOW (ENTERIC COATED) 81 MG PO (09:14)
[2024-01-08] MEDS: ZYLOPRIM 100 MG PO (09:14)
[2024-01-08] MEDS: APRESOLINE 10 MG PO ×2 (09:14→21:44)
[2024-01-08] MEDS: PACERONE 100 MG PO (09:14)
[2024-01-08] MEDS: LAMICTAL 100 MG PO ×2 (09:14→20:24)
--- NOTE | 2024-01-08 09:33 | W.PN.PUL3 ---
Today's Communication / Plan
-
Out of bed to chair, ambulate
Repeat chest x-ray 01/08
Follow-up for rate of recurrence
Cytology pending from 12/30 and 01/06 pleural fluid studies
Assessment
-
73-year-old male with history of heart failure, coronary disease, recently diagnosed with end-stage renal disease post renal artery hemorrhage requiring embolization July 2023 on hemodialysis with recurrent pleural effusions, presents with increased
shortness of breath and cough and increased left pleural effusion. We are asked to help from pulmonary standpoint 01/07/2024
Acute shortness of breath, cough x 24hrs
increased left pleural effusion
s/p left Thora 01/07/24 transudate
Recurrent bilateral pleural effusion
Thoracentesis 04/16/2023, 11/02/2023, 12/26/2023, 12/31/2023
Initially transudate, now exudate. Cytology negative
Chronic left hydropneumothorax per CT imaging
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
July of 2023: Admitted with hypovolemic shock secondary to left-sided retroperitoneal hemorrhage. Status post coil embolization by interventional radiology.
Coronary artery disease s/p Cardiac stents x 4 2010
Atrial fibrillation s/p CV
Stage 3b chronic kidney disease
HTN/HLD
Chronic HFpEF
EF 46%, improved
COPD --moderate obstruction PFT 2020/moderately severe restriction/moderate diffusion impairment
Pleural effusion s/p L thora 04/16/23 and 04/05/23- 1200mL and 1000mL of yellow pleural fluid.
Left knee torn meniscus s/p arthroscopic repair 2000
Torn rotator cuff x 3 97, 98, 2000
Hernia repair
B/l knees replaced 2010 with revisions 2012
MM/amyloid follows with Dr Crocker on Darzalex for treatment
Former smoker, 30+ pack years
Plan/recommendations
At this time, patient appears to be comfortable. There is an increased left pleural effusion on chest x-ray
Chest exam and symptoms much improved postthoracentesis
Recent CT imaging confirms small left sided hydropneumothorax. Which puts him at risk for mild trapped lung physiology
Suspect recurrent pleural effusions are multifactorial
Has had transudative effusion in the past, cytology negative
Moving forward
Not ideal candidate for chronic catheter, Pleurx catheter, but given suspected trapped lung physiology on the left with hydro pneumothorax, we may need to consider this
Lets get a sense of how often this recurs. He was pleural effusion for 2 months, suggesting this may be multifactorial, volume related
Repeat chest x-ray 01/08
Low protein amounts on prior pleural effusion suggest this is not secondary to multiple myeloma
Patient sees nephrology in [facility] although his other physicians are in the [facility] region
He would benefit from pulmonary follow-up as outpatient
Will follow
Subjective Data
-
Date of Service:
Date of Service: January 08, 2024
Subjective:
Patient feels improved postthoracentesis. Cough and shortness of breath have improved. Denies nausea, abdominal pain. Presently on room air
Objective Data
Data Reviewed
Vital Signs / I&O / Oxygen:
Vital Signs
Temp Pulse Resp BP Pulse Ox
98.9 F 76 16 118/60 97
01/08/24 07:25 01/08/24 09:14 01/08/24 07:25 01/08/24 09:14 01/08/24 07:25
Intake and Output
01/07/24 01/08/24 01/09/24
06:59 06:59 06:59
Intake Total 420 / 420 1200 / 1200
Balance 420 / 420 1200 / 1200
SaO2 97
Physical Exam
General: Comfortable
HEENT: Normocephalic, Anicteric and Other (Left anterior chest HD catheter)
Cardiovascular: S1-S2, Regular Rhythm, Murmur (n) and Rub (n)
Respiratory: Wheeze, Crackles (n) and Rhonchi
GI: Soft, Non Distended and Non Tender
Neurology: Awake, Alert and No Motor Deficits (Generally weak)
Skin: Cyanosis (n), Jaundice (n) and Rash (n)
Labs/Micro/Reports
Lab Data
01/07/24 05:32
01/07/24 05:32
Microbiology
01/07/24 08:32 Pleural Fluid Body Fluid Culture - Preliminary
No Growth After 18-24 Hours
01/07/24 08:32 Pleural Fluid Gram Stain - Preliminary
01/06/24 21:18 Nose MRSA Screen - Final
No Methicillin Resistant Staphylococcus aureus isolated.
01/06/24 16:01 Nasal Swab Influenza Types A & B (DEBRA) - Final
Negative for Influenza A & B, NAAT
Negative results must be combined with clinical observations
and patient history.
Nucleic Acid Amplification test (NAAT)performed on the
[employer] platform.
--- NOTE | 2024-01-08 11:38 | W.PN.NEPH.PH ---
Today's Communication / Plan
-
HD tomorrow
Assessment/Plan
-
Impression:
End-stage renal disease Sunday [place] unit
Hypertension
Recurrent left pleural effusion, s/p multiple thoracentesis
Anemia
Coronary artery disease with multiple stents
Atrial fibrillation
Left IJ tunneled hemodialysis cath
History of AL amyloidosis/multiple myeloma
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
Plan:
A/w symp recurrent plerual effusion s/p thoracentesis
strict renal diet and FR
cont lasix BID
BP stable on meds
need cytology per pulm, previously neg
HD tomorrow
-
-
Date of Service: January 08, 2024
CC / HPI / ROS
-
Chief Complaint:
ESRD
History of Present Illness:
BP stable, tolerated HD yesterday
no fever
wt is down
Review of Systems:
no cp or sob
feels well
Labs
-
Labs:
WBC 5.0 10^3/uL (4.8-10.8) 01/07/24 05:32
RBC 3.66 10^6/uL (4.70-6.10) L 01/07/24 05:32
Hgb 10.0 g/dL (13.0-18.0) L 01/07/24 05:32
Hct 32.1 % (39.0-52.0) L 01/07/24 05:32
Plt Count 195 10^3/uL (130-400) 01/07/24 05:32
Sodium 136 mmol/L (135-145) 01/07/24 05:32
Sodium Cancelled 01/07/24 05:32
Potassium 4.6 mmol/L (3.5-5.1) 01/07/24 05:32
Potassium Cancelled 01/07/24 05:32
Chloride 96 mmol/L (98-107) L 01/07/24 05:32
Chloride Cancelled 01/07/24 05:32
Carbon Dioxide 30 mmol/L (22-30) 01/07/24 05:32
Carbon Dioxide Cancelled 01/07/24 05:32
BUN 38 mg/dl (9-20) H 01/07/24 05:32
BUN Cancelled 01/07/24 05:32
Creatinine 3.4 mg/dL (0.7-1.3) H 01/07/24 05:32
Creatinine Cancelled 01/07/24 05:32
eGFR 18.19 01/07/24 05:32
eGFR Cancelled 01/07/24 05:32
Glucose 94 mg/dl (70-99) 01/07/24 05:32
Glucose Cancelled 01/07/24 05:32
Calcium 8.1 mg/dl (8.4-10.2) L 01/07/24 05:32
Calcium Cancelled 01/07/24 05:32
Albumin 2.7 g/dl (3.5-5.0) L 01/07/24 05:32
Albumin Cancelled 01/07/24 05:32
Physical Exam
-
Vital Signs:
Vital Signs
Temp Pulse Resp BP Pulse Ox
98.9 F 76 16 118/60 97
01/08/24 07:25 01/08/24 09:14 01/08/24 07:25 01/08/24 09:14 01/08/24 09:00
Cardiovascular:: Regular rate and rhythm
Respiratory:: Bilateral: Rales (at bases)
Lung Excursion:: Normal
Abdomen:: Nontender and Soft
Extremity Edema:: None: Bilateral:
[place]iera Catheter: No
--- NOTE | 2024-01-08 12:09 | W.PN.HOSP.TC ---
Addendum entered and electronically signed by Ibrahima Jeffrey MD 01/09/24 07:21:
Chronic Troponin elevation only
Original Note:
Today's Communication/Plan
-
repeat cxr tomorrow on 01/08
pt/ot consulted
Assessment / Plan
Assessment / Plan
Physical Exam
NAD, resting comfortably in bed
Scleral anicteric
Moist mucous membranes
No JVD
CTA bilateral
Normal S1-S2 no murmurs
LACWPC CDI
Soft nontender nondistended bowel sounds active
No peripheral pitting edema
Moves extremities spontaneously
AAOx3
Assessment and Plan
Recurrent left-sided pleural effusion. Believed secondary to multifactorial etiology
-Pulmonary following
-S/p thora, transudative off of fluid analysis/protein count
--cytology pending from previous thoras pending
---pulm rec to repeat cxr in 01/08
-follow up cytology
CAD continue aspirin isosorbide statin Zetia
ESRD consult nephrology for hemodialysis recommendations
HLD continue statin and Zetia
History of chemotherapy-induced neuropathy continue gabapentin
Multiple Myeloma / Cardiac Amyloidosis
- Continue venetoclax.
- Receives Darzalex monthly.
- f/u with Oncology as an outpatient.
PT/OT consulted as he states he feels unstable on his feet
Anticipated Discharge: 24 - 48 hours
Subjective/Interval History
-
Date of Service: January 08, 2024
Seen and examined. No new complaints. No acute overnight events.
In bed comfortable
States that he is a little unstable on his feet when going to the bathroom
Objective Data
-
Vital Signs:
Vital Signs
Temp Pulse Resp BP Pulse Ox
98.9 F 76 16 118/60 97
01/08/24 07:25 01/08/24 09:14 01/08/24 07:25 01/08/24 09:14 01/08/24 09:00
I&O
01/07/24 01/08/24 01/09/24
06:59 06:59 06:59
Intake Total 420 / 420 1200 / 1200
Balance 420 / 420 1200 / 1200
--- NOTE | 2024-01-08 13:42 | PN.CDI ---
CDI
- -
CDI:
Physician Documentation Request
Admit Date: 01/06/24 17:16
Dear Doctor Wojciech,
Clinical Indicators:
Patient admitted with recurrent pleural effusion.
PMH includes ESRD
01/05 H & P, 'Chronic troponin elevation'
Troponin trend:
01/06/24 01/06/24
15:03 21:06
Troponin I 0.147 H* 0.144 H*
Based on the above, could you clarify in the progress notes, the appropriate diagnosis, if significant, that supports the above abnormalities and additional evaluation, monitoring and/or treatment rendered:
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
Chronic Troponin elevation only
Other, please specify
Use of terms such as suspected, likely, concern for, or probable (associated with a specific diagnosis that is being evaluated, monitored, or treated as if it exists) are acceptable and can be coded in the inpatient setting, when documented at the
time of discharge.
Thank you,
Jodi Alvarado RN BSN
CDI Specialist
available via tiger text
Please use your independent medical judgment in providing your response.
--- NOTE | 2024-01-08 14:20 | CM ---
Reviewed the chart notes and spoke with the patient at the bedside. Patient scheduled for HD tomorrow. PT/OT evaluations pending. CM continues to be available to patient/family and is monitoring medical plan for needs at discharge.
Plan: Discharge to home when medically stable.
[2024-01-08 15:53] VITALS: BP 107/55
[2024-01-08 16:28] VITALS: BP 107/53; BP 109/54; PULSE 72; O2SAT 99
[2024-01-08] MEDS: APRESOLINE PO (16:30)
[2024-01-08] MEDS: SINGULAIR 10 MG PO (17:33)
[2024-01-08] MEDS: RISPERDAL 0.25 MG PO (21:43)
[2024-01-08] MEDS: ZETIA 10 MG PO (21:44)
[2024-01-08 23:10] VITALS: BP 120/59
[2024-01-09 06:00] VITALS: BMI 21.5
[2024-01-09 07:25] VITALS: BP 106/69
[2024-01-09] MEDS: ALDACTONE PO (07:56)
[2024-01-09] MEDS: APRESOLINE PO (07:56)
[2024-01-09] MEDS: LASIX PO (07:56)
[2024-01-09] MEDS: ASPIR LOW (ENTERIC COATED) 81 MG PO (07:59)
[2024-01-09] MEDS: LAMICTAL 100 MG PO ×2 (07:59→20:03)
[2024-01-09] MEDS: IMDUR (EXTENDED RELEASE) 30 MG PO (07:59)
[2024-01-09] MEDS: CRESTOR 10 MG PO (07:59)
[2024-01-09] MEDS: HEPARIN 5000 UNITS SC ×2 (08:00→20:03)
[2024-01-09] MEDS: ZYLOPRIM 100 MG PO (08:00)
[2024-01-09] MEDS: NEURONTIN 100 MG PO ×3 (08:00→21:52)
[2024-01-09] MEDS: ZOVIRAX 200 MG PO ×2 (08:00→20:03)
[2024-01-09] MEDS: HEPARIN 500 UNITS IV ×2 (08:04→09:22)
[2024-01-09] MEDS: TESSALON PERLES 100 MG PO (08:11)
--- NOTE | 2024-01-09 08:32 | W.PN.PUL3 ---
Addendum entered and electronically signed by Shayla Nuñez MD 01/09/24 15:55:
Chest x-ray with slight worsening of left pleural effusion
Per nursing, patient is more short of breath today and not hypoxic
Will have respiratory check 6-minute walk test and assess oxygenation
Unfortunate, this is a chronic recurrent problem for which there is no easy solution
Options include Pleurx catheter, vs outpt close f/u
For now, we will plan for repeat thoracentesis 01/09
I asked patient to contact his primary physician for follow-up and immediate pulmonary evaluation in [facility] post discharge to get plugged in more locally and closer to his house
Original Note:
Today's Communication / Plan
-
Await chest x-ray today
Recommend outpatient pulmonary follow-up in [facility]
May require intermittent outpatient thoracentesis
Given possibility of trapped lung, may require left Pleurx catheter
Disposition efforts
Assessment
-
73-year-old male with history of heart failure, coronary disease, recently diagnosed with end-stage renal disease post renal artery hemorrhage requiring embolization July 2023 on hemodialysis with recurrent pleural effusions, presents with increased
shortness of breath and cough and increased left pleural effusion. We are asked to help from pulmonary standpoint 01/07/2024
Acute shortness of breath, cough x 24hrs
increased left pleural effusion
s/p left Thora 01/07/24 transudate
Recurrent bilateral pleural effusion
Thoracentesis 04/16/2023, 11/02/2023, 12/26/2023, 12/31/2023
Initially transudate, now exudate. Cytology negative
Chronic left hydropneumothorax per CT imaging
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
July of 2023: Admitted with hypovolemic shock secondary to left-sided retroperitoneal hemorrhage. Status post coil embolization by interventional radiology.
Coronary artery disease s/p Cardiac stents x 2010
Atrial fibrillation s/p CV
Stage 3b chronic kidney disease
HTN/HLD
Chronic HFpEF
EF 46%, improved
COPD --moderate obstruction PFT 2020/moderately severe restriction/moderate diffusion impairment
Pleural effusion s/p L thora 04/16/23 and 04/05/23- 1200mL and 1000mL of yellow pleural fluid.
Left knee torn meniscus s/p arthroscopic repair 2000
Torn rotator cuff x 3 97, 98, 2000
Hernia repair
B/l knees replaced 2010 with revisions 2012
MM/amyloid follows with Dr Crocker on Darzalex for treatment
Former smoker, 30+ pack years
Plan/recommendations
At this time, patient appears to be comfortable. There is an increased left pleural effusion on chest x-ray
Chest exam and symptoms much improved postthoracentesis
Mild decreased breath sounds left base
Recent CT imaging confirms small left sided hydropneumothorax. Which puts him at risk for mild trapped lung physiology
Suspect recurrent pleural effusions are multifactorial
Has had transudative effusion in the past, cytology negative
Moving forward
Not ideal candidate for chronic catheter, Pleurx catheter, but given suspected trapped lung physiology on the left with hydro-pneumothorax, we may need to consider this
Lets get a sense of how often this recurs. He was pleural effusion for 2 months, suggesting this may be multifactorial, volume related
Repeat chest x-ray 01/08 following dialysis
Low protein amounts on prior pleural effusion suggest this is not secondary to multiple myeloma
Patient sees nephrology in [facility] although his other physicians are in the [facility] region
He would benefit from pulmonary follow-up as outpatient
I reviewed this with him at length
Tolerated physical therapy 01/07, walked 150 feet, 99% room air
Disposition efforts
Subjective Data
-
Date of Service:
Date of Service: January 09, 2024
Subjective:
Patient completed dialysis this morning. In general feels stable. Chronic shortness of breath, but tolerated physical therapy. Denies nausea, vomiting, hemoptysis, abdominal pain
Objective Data
Data Reviewed
Vital Signs / I&O / Oxygen:
Vital Signs
Temp Pulse Resp BP Pulse Ox
98.9 F 70 16 120/59 97
01/08/24 23:10 01/08/24 23:10 01/08/24 23:10 01/08/24 23:10 01/09/24 01:10
Intake and Output
01/08/24 01/09/24 01/10/24
06:59 06:59 06:59
Intake Total 1200 / 1200 900 / 900
Balance 1200 / 1200 900 / 900
SaO2 97
Physical Exam
General: Comfortable
HEENT: Normocephalic, Anicteric and Other (Left anterior chest/IJ HD catheter)
Cardiovascular: S1-S2, Regular Rhythm, Murmur (n) and Rub (n)
Respiratory: Wheeze, Crackles (n), Rhonchi and Other (Slight decreased left base)
GI: Soft, Non Distended and Non Tender
Neurology: Awake, Alert and No Motor Deficits (Generally weak)
Skin: Cyanosis (n), Jaundice (n) and Rash (n)
Labs/Micro/Reports
Lab Data
01/07/24 05:32
01/07/24 05:32
Microbiology
01/07/24 08:32 Pleural Fluid Body Fluid Culture - Preliminary
No Growth After 18-24 Hours
01/07/24 08:32 Pleural Fluid Gram Stain - Preliminary
01/06/24 21:18 Nose MRSA Screen - Final
No Methicillin Resistant Staphylococcus aureus isolated.
01/06/24 16:01 Nasal Swab Influenza Types A & B (DEBRA) - Final
Negative for Influenza A & B, NAAT
Negative results must be combined with clinical observations
and patient history.
Nucleic Acid Amplification test (NAAT)performed on the
[employer] platform.
--- NOTE | 2024-01-09 08:39 | CM ---
Reviewed the chart notes and spoke with the patient at the bedside. IMM reviewed. Patient is discharged. CM continues to be available to patient/family and is monitoring medical plan for needs at discharge.
Plan: Discharge to home with no additional needs being identified at this time.
--- NOTE | 2024-01-09 09:05 | W.PN.NEPH.HD ---
Assessment
-
Patient seen on dialysis
Systolic blood pressure 110 at current UF
Resting comfortable on dialysis
Progress Note - Hemodialysis
-
Date of Service: January 09, 2024
Duration: 30 minutes and 3 hours
Potassium Bath: 3
Calcium Bath: 2.5
Opti-Dialyzer: 160
Ultrafiltration: Other (2.5 kg)
Blood Flow: 400
Dialysate Flow: 600
Heparin: 500 x 2
EPO: None
[2024-01-09] MEDS: RETACRIT 2000 UNITS IV (09:21)
[2024-01-09] MEDS: FLEXBUMIN 25% FOR HEMODIALYSIS 12.5 GRAMS IV (10:15)
[2024-01-09] MEDS: FLUAD (65 yr+) 2024-2025 FORMULA 0.5 ML IM (10:26)
[2024-01-09] MEDS: HEPARIN 4700 UNITS INTRACATH (11:27)
[2024-01-09] MEDS: LASIX 80 MG PO (15:27)
[2024-01-09] MEDS: APRESOLINE 10 MG PO ×2 (15:28→21:53)
[2024-01-09 15:35] VITALS: BP 118/54
--- NOTE | 2024-01-09 15:55 | PTCARENOTE ---
Received patient from CXR, patient c/o labored breathing when walking from stretcher to bed. Vitals taken by tech, POX 97% on RA at rest, patient states improvement in breathing after resting in bed. MD and pulmonology made aware of patient
complaints, CXR results pending.
--- NOTE | 2024-01-09 16:28 | W.PN.HOSP.TC ---
Today's Communication/Plan
-
Assessment / Plan
Assessment / Plan
Physical Exam
NAD, resting comfortably in bed
Scleral anicteric
Moist mucous membranes
No JVD
CTA bilateral
Normal S1-S2 no murmurs
LACWPC CDI
Soft nontender nondistended bowel sounds active
No peripheral pitting edema
Moves extremities spontaneously
AAOx3
Assessment and Plan
Recurrent left-sided pleural effusion. Believed secondary to multifactorial etiology
-Pulmonary following
-S/p thora, transudative off of fluid analysis/protein count
--cytology pending from previous thoras pending
--- Repeat chest x-ray from this morning demonstrating reaccumulation of pleural effusion. Additionally states that he feels labored from going from stretcher to bed. Pulmonary likely to go towards Pleurx catheter due to how rapidly this fluid is
reaccumulating. Pulmonary does not believe that he is a candidate for pleurodesis due to trapped lung and hydrothorax that is present.
-follow up cytology
CAD continue aspirin isosorbide statin Zetia
ESRD consult nephrology for hemodialysis recommendations
HLD continue statin and Zetia
History of chemotherapy-induced neuropathy continue gabapentin
Multiple Myeloma / Cardiac Amyloidosis
- Continue venetoclax.
- Receives Darzalex monthly.
- f/u with Oncology as an outpatient.
PT OT evaluated him no needs recommended
Plan for thoracentesis/Pleurx catheter placement
Anticipated Discharge: 24 - 48 hours
Subjective/Interval History
-
Date of Service: January 09, 2024
Seen and examined. No new complaints. No acute overnight events
Receiving hemodialysis when I evaluated him
Told me he has not gone for chest x-ray and he was supposed to go after HD
Objective Data
-
Vital Signs:
Vital Signs
Temp Pulse Resp BP Pulse Ox
98.6 F 76 16 118/54 97
01/09/24 15:35 01/09/24 15:35 01/09/24 15:35 01/09/24 15:35 01/09/24 15:35
I&O
01/08/24 01/09/24 01/10/24
06:59 06:59 06:59
Intake Total 1200 / 1200 900 / 900
Balance 1200 / 1200 900 / 900
[2024-01-09] MEDS: SINGULAIR PO (17:13)
[2024-01-09] MEDS: ZETIA 10 MG PO (21:52)
[2024-01-09] MEDS: RISPERDAL 0.25 MG PO (21:55)
[2024-01-09 23:03] VITALS: BP 96/50
[2024-01-09 23:38] VITALS: BP 110/58
[2024-01-10 06:00] VITALS: BMI 20.8
[2024-01-10 07:25] VITALS: BP 123/57
[2024-01-10] MEDS: PACERONE 100 MG PO (08:25)
[2024-01-10] MEDS: LASIX 80 MG PO (08:25)
[2024-01-10] MEDS: ASPIR LOW (ENTERIC COATED) 81 MG PO (08:25)
[2024-01-10] MEDS: APRESOLINE 10 MG PO ×2 (08:25→21:03)
[2024-01-10] MEDS: CRESTOR 10 MG PO (08:25)
[2024-01-10] MEDS: NEURONTIN 100 MG PO ×3 (08:25→21:03)
[2024-01-10] MEDS: ALDACTONE 50 MG PO (08:25)
[2024-01-10] MEDS: LAMICTAL 100 MG PO ×2 (08:25→20:57)
[2024-01-10] MEDS: IMDUR (EXTENDED RELEASE) 30 MG PO (08:25)
[2024-01-10] MEDS: HEPARIN 5000 UNITS SC ×2 (08:26→20:57)
[2024-01-10] MEDS: ZYLOPRIM 100 MG PO (08:26)
[2024-01-10] MEDS: ZOVIRAX 200 MG PO ×2 (08:26→20:57)
[2024-01-10 10:39] VITALS: BP 100/52; PULSE 79; O2SAT 100
--- NOTE | 2024-01-10 11:54 | W.PN.HOSP.TC ---
Today's Communication/Plan
-
Assessment / Plan
Assessment / Plan
Physical Exam
NAD, resting comfortably in bed
Scleral anicteric
Moist mucous membranes
No JVD
CTA bilateral
Normal S1-S2 no murmurs
LACWPC CDI
Soft nontender nondistended bowel sounds active
No peripheral pitting edema
Moves extremities spontaneously
AAOx3
Assessment and Plan
Recurrent left-sided pleural effusion. Believed secondary to multifactorial etiology
-Pulmonary following
-S/p thora, transudative off of fluid analysis/protein count
--cytology pending from previous thoras pending
--- Repeat chest x-ray from this morning demonstrating reaccumulation of pleural effusion. Additionally states that he feels labored from going from stretcher to bed. Pulmonary likely to go towards Pleurx catheter due to how rapidly this fluid is
reaccumulating. Pulmonary does not believe that he is a candidate for pleurodesis due to trapped lung and hydrothorax that is present.
-follow up cytology
CAD continue aspirin isosorbide statin Zetia
ESRD consult nephrology for hemodialysis recommendations
HLD continue statin and Zetia
History of chemotherapy-induced neuropathy continue gabapentin
Multiple Myeloma / Cardiac Amyloidosis
- Continue venetoclax.
- Receives Darzalex monthly.
- f/u with Oncology as an outpatient.
PT OT evaluated him no needs recommended
He will need to follow-up with outpatient pulmonary and PCP to discuss Pleurx catheter needs due to rapid reaccumulation of pleural fluid. He will need close follow-up for this.
Anticipated Discharge: Today
Subjective/Interval History
-
Date of Service: January 10, 2024
Seen and examined. No new complaints. No acute overnight events.
Status post repeat thoracentesis 1400 cc out.
Was able to do activities with physical therapy however did state he felt somewhat short of breath but improved with rest
Objective Data
-
Vital Signs:
Vital Signs
Temp Pulse Resp BP Pulse Ox
98.3 F 74 18 123/57 97
01/10/24 07:25 01/10/24 07:25 01/10/24 07:25 01/10/24 07:25 01/10/24 07:25
I&O
01/09/24 01/10/24 01/11/24
06:59 06:59 06:59
Intake Total 900 / 900 1800 / 1800
Balance 900 / 900 1800 / 1800
--- NOTE | 2024-01-10 11:55 | W.DCSUMMARY ---
Discharge Summary
Discharge Data
Date of Admission: 01/06/24
Date of Discharge: 01/10/24
-
Pending Results: No
Hospital Course
73 M history of CAD status post stents, HFrEF, paroxysmal atrial fibrillation on Eliquis, ESRD on hemodialysis Sunday, Sunday, Sunday,, multiple myeloma, amyloidosis, hypertension, gout, hyperlipidemia, normocytic anemia, recurrent left pleural
effusion, chemotherapy-induced neuropathy, depression presented with shortness of breath, found to have reaccumulation of pleural effusion. required thoracentesis for which fluid was removed with the guidance of IR. Evaluated by pulmonary
recommended obtain additional chest xray to reassess for accumulation of fluid. Additionally, was seen by nephrology that continued hemodialysis. Was evaluated by Physical therapy the did not recommended any further needs. Again on repeat chest
x-ray showed reaccumulation of fluid. Again tapped for 1400 cc. Pulmonary had discussed potential outpatient pulmonary and PCP follow-up to discuss Pleurx catheter needs and if he would benefit.
CXR
IMPRESSION:
Progressive moderate left pleural effusion.
CXR
IMPRESSION:
No pneumothorax
Minimal residual left effusion
CXR
IMPRESSION:
Small left pleural effusion, slightly increased in volume when compared with the 01/07/2024 study
Discharge Plan
-
Patient Disposition: Home (Routine Discharge)
Discharge Diagnosis/Procedures: Recurrent pleural effusion
history of CAD status post stents, HFrEF, paroxysmal atrial fibrillation on Eliquis, ESRD on hemodialysis Sunday, Sunday, Sunday,, multiple myeloma, amyloidosis, hypertension, gout, hyperlipidemia, normocytic anemia, recurrent left pleural
effusion, chemotherapy-induced neuropathy, depression
Condition: Fair
Diet: As tolerated
Activity: As tolerated
Activity Restrictions/Additional Instructions:
Presented with shortness of breath, found to have reaccumulation of pleural effusion. required thoracentesis for which fluid was removed with the guidance of IR. Evaluated by pulmonary recommended obtain additional chest xray to reassess for
accumulation of fluid. Additionally, was seen by nephrology that continued hemodialysis. Was evaluated by Physical therapy the did not recommended any further needs. Again on repeat chest x-ray showed reaccumulation of fluid. Again tapped for 1400
cc. Pulmonary had discussed potential outpatient pulmonary and PCP follow-up to discuss Pleurx catheter needs and if he would benefit.
CXR
IMPRESSION:
Progressive moderate left pleural effusion.
CXR
IMPRESSION:
No pneumothorax
Minimal residual left effusion
CXR
IMPRESSION:
Small left pleural effusion, slightly increased in volume when compared with the 01/07/2024 study
Referrals:
Bang Lambert III, DO [Family Provider] -
Jarrett Gill MD [Active] - in less than 1 week
Patricia Armando MD [Active] - in one to two weeks
Additional Discharge Medication Instructions: Follow-up with pulmonary in [facility], through primary physician regarding left pleural effusion
Prescriptions:
Continued
lamotrigine 100 MG tablet
100 mg PO BID
ezetimibe 10 MG tablet
10 mg PO HS
rosuvastatin 10 MG tablet
10 mg PO DAILY
aspirin 81 MG tablet,delayed release (DR/EC)
81 mg PO DAILY
allopurinol 100 MG tablet
100 mg PO DAILY
montelukast [Singulair] 10 mg Tablet
10 mg PO UD
Rx Instructions:
take the night before, night of, and night after Darzalex infusion.
gabapentin [Neurontin] 100 mg Capsule
100 mg PO TID
Darzalex 20 mg/mL Solution
1,800 mg IV QMONTH
Venclexta 100 mg Tablet
200 mg PO DAILY
risperidone 0.25 mg Tablet
0.25 mg PO HS
hydralazine 10 mg Tablet
10 mg PO TID Qty: 90 0RF
isosorbide mononitrate 30 mg Tablet Extended Release 24 Hr
30 mg PO DAILY Qty: 0 0RF
amiodarone 200 mg Tablet
100 mg PO SUTUTHSA@0800
benzonatate 100 mg Capsule
100 mg PO TIDPRN PRN (Reason: cough) Qty: 10 0RF
acyclovir 200 mg Capsule
200 mg PO BID Qty: 10 0RF
spironolactone 50 mg Tablet
50 mg PO DAILY Qty: 30 0RF
furosemide 80 mg tablet
80 mg PO BID Qty: 60 0RF
Discharge Orders:
Discharge Patient (As Directed); Ordered 01/10/24
Ordered By: Ibrahima Jeffrey
Discharge Date and Time
Print Language: CROATIAN
--- NOTE | 2024-01-10 12:15 | W.PN.PUL3 ---
Today's Communication / Plan
-
I agree with discharge planning
Adhere to a low-sodium diet
Continue dialysis
Outpatient pulmonary follow-up to determine whether an intrapleural catheter will be an option. He is not the ideal candidate for this.
Pleural effusion likely to recur due to trapped lung physiology. He is not a candidate for VATS either.
Sign off, discussed with primary team
Assessment
-
73-year-old male with history of heart failure, coronary disease, recently diagnosed with end-stage renal disease post renal artery hemorrhage requiring embolization July 2023 on hemodialysis with recurrent pleural effusions, presents with increased
shortness of breath and cough and increased left pleural effusion. We are asked to help from pulmonary standpoint 01/07/2024
Acute shortness of breath, cough x 24hrs
increased left pleural effusion
s/p left Thora 01/07/24 transudate
Recurrent bilateral pleural effusion
Thoracentesis 04/16/2023, 11/02/2023, 12/26/2023, 12/31/2023
Initially transudate, now exudate. Cytology negative
Chronic left hydropneumothorax per CT imaging
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
July of 2023: Admitted with hypovolemic shock secondary to left-sided retroperitoneal hemorrhage. Status post coil embolization by interventional radiology.
Coronary artery disease s/p Cardiac stents x 4 2010
Atrial fibrillation s/p CV
Stage 3b chronic kidney disease
HTN/HLD
Chronic HFpEF
EF 46%, improved
COPD --moderate obstruction PFT 2020/moderately severe restriction/moderate diffusion impairment
Pleural effusion s/p L thora 04/16/23 and 04/05/23- 1200mL and 1000mL of yellow pleural fluid.
Left knee torn meniscus s/p arthroscopic repair 2000
Torn rotator cuff x 3 97, 98, 2000
Hernia repair
B/l knees replaced 2010 with revisions 2012
MM/amyloid follows with Dr Crocker on Darzalex for treatment
Former smoker, 30+ pack years
Plan/recommendations
Comfortable. Status post thoracentesis on the left.
Rapid recurrence of pleural effusion
In the past after full drainage of chest, there has been no reexpansion of the lung. Example chest x-ray from 12/26/2023 with residual ex-vacuo pneumothorax.
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
Suspect recurrent pleural effusions are multifactorial
Effusion has been transudative multiple times, negative cytology and cultures. Likely disease related to his underlying chronic kidney disease, hyperlipidemia etc.
Workup in the past has been otherwise negative.
-
Not ideal candidate for chronic catheter, Pleurx catheter, but given suspected trapped lung physiology on the left with hydro-pneumothorax.
Lets get a sense of how often this recurs. He was pleural effusion for 2 months, suggesting this may be multifactorial, volume related
Repeat chest x-ray 01/08: Ongoing small left pleural effusion.
Low protein amounts on prior pleural effusion suggest this is not secondary to multiple myeloma
Patient sees nephrology in [facility] although his other physicians are in the [facility] region
He would benefit from pulmonary follow-up as outpatient
I reviewed this with him at length
Tolerated physical therapy 01/07, walked 150 feet, 99% room air
Agree with discharge planning.
Subjective Data
-
Date of Service:
Date of Service: January 10, 2024
Chief Complaint: Pulmonary Follow Up (Recurrent pleural effusion)
Subjective:
No new complaints, tolerated thoracentesis
Denies chest pain
Review of Systems
Cardiopulmonary: Dyspnea (improved)
Objective Data
Data Reviewed
Vital Signs / I&O / Oxygen:
Vital Signs
Temp Pulse Resp BP Pulse Ox
98.3 F 74 18 123/57 97
01/10/24 07:25 01/10/24 07:25 01/10/24 07:25 01/10/24 07:25 01/10/24 07:25
Intake and Output
01/09/24 01/10/24 01/11/24
06:59 06:59 06:59
Intake Total 900 / 900 1800 / 1800
Balance 900 / 900 1800 / 1800
SaO2 97
Nasal Cannula flow liters per 2
minute
Physical Exam
General: Comfortable
HEENT: Normocephalic, Anicteric and Other (Left anterior chest/IJ HD catheter)
Cardiovascular: S1-S2, Regular Rhythm, Murmur (n) and Rub (n)
Respiratory: Wheeze, Crackles (n), Rhonchi and Other (Slight decreased left base)
GI: Soft, Non Distended and Non Tender
Neurology: Awake, Alert and No Motor Deficits (Generally weak)
Skin: Cyanosis (n), Jaundice (n) and Rash (n)
Labs/Micro/Reports
Lab Data
01/07/24 05:32
01/07/24 05:32
Microbiology
01/07/24 08:32 Pleural Fluid Body Fluid Culture - Final
No Growth After 72 Hours
01/07/24 08:32 Pleural Fluid Gram Stain - Final
01/06/24 21:18 Nose MRSA Screen - Final
No Methicillin Resistant Staphylococcus aureus isolated.
--- NOTE | 2024-01-10 13:09 | W.PN.NEPH.PH ---
Today's Communication / Plan
-
Stable for discharge
Next dialysis will be at home unit tomorrow
Assessment/Plan
-
Impression:
End-stage renal disease Sunday [facility] unit
Hypertension
Recurrent left pleural effusion, s/p multiple thoracentesis
Anemia
Coronary artery disease with multiple stents
Atrial fibrillation
Left IJ tunneled hemodialysis cath
History of AL amyloidosis/multiple myeloma
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
Plan:
A/w symp recurrent plerual effusion s/p thoracentesis
strict renal diet and FR
continue lasix BID at discharge
BP stable on meds and a dry weight
need cytology per pulm, previously neg
Patient may eventually require pleural catheter as outpatient
Patient stable for discharge will receive dialysis at home unit tomorrow
-
-
Date of Service: January 10, 2024
CC / HPI / ROS
-
Chief Complaint:
ESRD
History of Present Illness:
BP stable,
ESRD Sunday
wt is down
Review of Systems:
no cp or sob
feels well
Labs
-
Labs:
WBC 5.0 10^3/uL (4.8-10.8) 01/07/24 05:32
RBC 3.66 10^6/uL (4.70-6.10) L 01/07/24 05:32
Hgb 10.0 g/dL (13.0-18.0) L 01/07/24 05:32
Hct 32.1 % (39.0-52.0) L 01/07/24 05:32
Plt Count 195 10^3/uL (130-400) 01/07/24 05:32
Sodium 136 mmol/L (135-145) 10/21/24 05:32
Sodium Cancelled 01/07/24 05:32
Potassium 4.6 mmol/L (3.5-5.1) 01/07/24 05:32
Potassium Cancelled 01/07/24 05:32
Chloride 96 mmol/L (98-107) L 01/07/24 05:32
Chloride Cancelled 01/07/24 05:32
Carbon Dioxide 30 mmol/L (22-30) 01/07/24 05:32
Carbon Dioxide Cancelled 01/07/24 05:32
BUN 38 mg/dl (9-20) H 01/07/24 05:32
BUN Cancelled 01/07/24 05:32
Creatinine 3.4 mg/dL (0.7-1.3) H 01/07/24 05:32
Creatinine Cancelled 01/07/24 05:32
eGFR 18.19 01/07/24 05:32
eGFR Cancelled 01/07/24 05:32
Glucose 94 mg/dl (70-99) 01/07/24 05:32
Glucose Cancelled 01/07/24 05:32
Calcium 8.1 mg/dl (8.4-10.2) L 01/07/24 05:32
Calcium Cancelled 01/07/24 05:32
Albumin 2.7 g/dl (3.5-5.0) L 01/07/24 05:32
Albumin Cancelled 01/07/24 05:32
Physical Exam
-
Vital Signs:
Vital Signs
Temp Pulse Resp BP Pulse Ox
98.3 F 74 18 123/57 97
01/10/24 07:25 01/10/24 07:25 01/10/24 07:25 01/10/24 07:25 01/10/24 07:25
Cardiovascular:: Regular rate and rhythm
Respiratory:: Bilateral: Rales (at bases)
Lung Excursion:: Normal
Abdomen:: Nontender and Soft
Extremity Edema:: None: Bilateral:
Viera Catheter: No
[2024-01-10 15:30] VITALS: BP 104/51
--- NOTE | 2024-01-10 16:06 | CM ---
Reviewed the chart notes. CM continues to be available to patient/family and is monitoring medical plan for needs at discharge.
Plan: Discharge to home when medically stable.
[2024-01-10] MEDS: APRESOLINE PO (16:53)
[2024-01-10] MEDS: LASIX PO (16:54)
[2024-01-10] MEDS: SINGULAIR 10 MG PO (16:56)
[2024-01-10] MEDS: ZETIA 10 MG PO (21:04)
[2024-01-10] MEDS: TESSALON PERLES 100 MG PO (21:11)
[2024-01-10] MEDS: RISPERDAL 0.25 MG PO (21:11)
[2024-01-10 23:18] VITALS: BP 127/68
[2024-01-11] VITALS (7 sets, daily range): BP systolic 76–117; BP diastolic 45–62; BMI 21.2
[2024-01-11] MEDS: HEPARIN 500 UNITS IV ×2 (07:40→08:40)
[2024-01-11 07:55] LABS: Hematocrit 31.3 % (39.0-52.0)
[2024-01-11] MEDS: FLEXBUMIN 25% FOR HEMODIALYSIS 12.5 GRAMS IV ×2 (08:09→09:35)
[2024-01-11] MEDS: RETACRIT 6000 UNITS IV (08:10)
[2024-01-11 08:12] LABS: Blood Urea Nitrogen 42 mg/dl (9-20); Calcium 8.4 mg/dl (8.4-10.2); Carbon Dioxide 31 mmol/L (22-30); Chloride 99 mmol/L (98-107); Estimated Creatinine Clearance 19 ml/min; Glucose 88 mg/dl (70-99); Potassium 5.2 mmol/L (3.5-5.1); Sodium 136 mmol/L (135-145); eGFR 18.85
[2024-01-11] MEDS: NEURONTIN 100 MG PO ×3 (08:38→22:28)
[2024-01-11] MEDS: ASPIR LOW (ENTERIC COATED) 81 MG PO (08:38)
[2024-01-11] MEDS: LAMICTAL 100 MG PO ×2 (08:38→19:45)
[2024-01-11] MEDS: ZYLOPRIM 100 MG PO (08:38)
[2024-01-11] MEDS: HEPARIN 5000 UNITS SC ×2 (08:39→19:44)
[2024-01-11] MEDS: CRESTOR 10 MG PO (08:41)
--- NOTE | 2024-01-11 09:19 | W.PN.NEPH.HD ---
Assessment
-
pt seen during HD
BP are soft, cont alb
may need midodrine if persists and difficult to do UF
for thoracentesis today
CVC funtiosn well
Progress Note - Hemodialysis
-
Date of Service: January 11, 2024
Duration: 30 minutes and 3 hours
Potassium Bath: 2
Calcium Bath: 2.5
Opti-Dialyzer: 160
Ultrafiltration: Other (1-2kg)
Blood Flow: 400
Dialysate Flow: 600
Heparin: yesx2
EPO: 6000
[2024-01-11] MEDS: MANNITOL 25% 12.5 GRAMS IV (09:34)
[2024-01-11] MEDS: HEPARIN 4700 UNITS INTRACATH (10:58)
--- NOTE | 2024-01-11 11:33 | CM ---
CM following re: discharge planning.
Reviewed pt's chart, met with pt during HD session.
Discharge order noted. Pt is aware, expressed his agreement. Pt stated his car is parked on the parking lot and he will drive home.
PT and OT recommend outpatient therapy. Pt agrees.
Please provide a script for outpatient PT/OT
Pt will resume outpatient HD treatment at [facility].
D/C plan: home with outpatient PT/OT, resumptions of outpatient HD treatment and family support.
[2024-01-11] MEDS: ZOVIRAX 200 MG PO ×2 (11:37→19:44)
--- NOTE | 2024-01-11 13:05 | W.PN.HOSP.TC ---
Today's Communication/Plan
-
For HD and thora today
Plan to DC in the AM tomorrow.
Reviewed with him that due to the anemia, mm and rapidly recurring pleural effusion, unable to do much for him. per pulmonary he will need to get used to this level of sob as this will be his new baseline.
Assessment / Plan
Assessment / Plan
Physical Exam
NAD, resting comfortably in bed
Scleral anicteric
Moist mucous membranes
No JVD
CTA bilateral
Normal S1-S2 no murmurs
LACWPC CDI
Soft nontender nondistended bowel sounds active
No peripheral pitting edema
Moves extremities spontaneously
AAOx3
Assessment and Plan
Recurrent left-sided pleural effusion. Believed secondary to multifactorial etiology
-Pulmonary following
-S/p thora, transudative off of fluid analysis/protein count
--cytology pending from previous thoras pending
--- Repeat chest x-ray from this morning demonstrating reaccumulation of pleural effusion. Additionally states that he feels labored from going from stretcher to bed. Pulmonary likely to go towards Pleurx catheter due to how rapidly this fluid is
reaccumulating. Pulmonary does not believe that he is a candidate for pleurodesis due to trapped lung and hydrothorax that is present.
-follow up cytology
CAD continue aspirin isosorbide statin Zetia
ESRD consult nephrology for hemodialysis recommendations
HLD continue statin and Zetia
History of chemotherapy-induced neuropathy continue gabapentin
Multiple Myeloma / Cardiac Amyloidosis
- Continue venetoclax.
- Receives Darzalex monthly.
- f/u with Oncology as an outpatient.
PT OT evaluated him no needs recommended
He will need to follow-up with outpatient pulmonary and PCP to discuss Pleurx catheter needs due to rapid reaccumulation of pleural fluid. He will need close follow-up for this.
Anticipated Discharge: Within 24 hours
Subjective/Interval History
-
Date of Service: January 11, 2024
seen and examined. no new complaints. no acute overnight events
Objective Data
-
Labs:
Laboratory Results
01/11/24
07:37
Hgb 10.0 L
Hct 31.3 L
Sodium 136
Potassium 5.2 H
Chloride 99
Carbon Dioxide 31 H
BUN 42 H
Creatinine 3.3 H
Glucose 88
Calcium 8.4
Vital Signs:
Vital Signs
Temp Pulse Resp BP Pulse Ox
97.6 F 76 16 106/51 98
01/11/24 12:55 01/11/24 12:55 01/11/24 12:55 01/11/24 12:55 01/11/24 12:55
I&O
01/10/24 01/11/24 01/12/24
06:59 06:59 06:59
Intake Total 1800 / 1800 1919
Balance 1800 / 1800 1919
[2024-01-11] MEDS: APRESOLINE PO ×2 (13:36→22:31)
[2024-01-11] MEDS: ALDACTONE PO (13:36)
[2024-01-11] MEDS: IMDUR (EXTENDED RELEASE) PO (13:38)
[2024-01-11] MEDS: LASIX PO (13:38)
[2024-01-11] MEDS: APRESOLINE 10 MG PO (15:58)
[2024-01-11] MEDS: LASIX 80 MG PO (15:58)
[2024-01-11] MEDS: SINGULAIR 10 MG PO (17:05)
[2024-01-11] MEDS: RISPERDAL 0.25 MG PO (22:26)
[2024-01-11] MEDS: ZETIA 10 MG PO (22:28)
[2024-01-12 05:45] VITALS: BMI 20.3
[2024-01-12 07:25] VITALS: BP 111/64
[2024-01-12] MEDS: CRESTOR 10 MG PO (08:25)
[2024-01-12] MEDS: LAMICTAL 100 MG PO ×2 (08:25→19:41)
[2024-01-12] MEDS: ZYLOPRIM 100 MG PO (08:26)
[2024-01-12] MEDS: IMDUR (EXTENDED RELEASE) 30 MG PO (08:26)
[2024-01-12] MEDS: ASPIR LOW (ENTERIC COATED) 81 MG PO (08:26)
[2024-01-12] MEDS: APRESOLINE 10 MG PO ×2 (08:26→22:07)
[2024-01-12] MEDS: LASIX 80 MG PO ×2 (08:27→16:26)
[2024-01-12] MEDS: ALDACTONE 50 MG PO (08:27)
[2024-01-12] MEDS: PACERONE 100 MG PO (08:27)
[2024-01-12] MEDS: ZOVIRAX 200 MG PO ×2 (08:27→19:41)
[2024-01-12] MEDS: NEURONTIN 100 MG PO ×3 (08:27→22:05)
[2024-01-12] MEDS: HEPARIN 5000 UNITS SC ×2 (08:27→19:41)
--- NOTE | 2024-01-12 12:32 | W.PN.HOSP.TC ---
Today's Communication/Plan
-
dc home
outpt pulm follow up
More than 30 minutes spent in discharge including
Final examination of the patient
Summarizing hospital stay
Instructions for continuing care to all relevant caregivers
Preparation of discharge records, prescriptions, and referral forms
Total time spent (in minutes):
Assessment / Plan
Assessment / Plan
Physical Exam
NAD, resting comfortably in bed
Scleral anicteric
Moist mucous membranes
No JVD
CTA bilateral
Normal S1-S2 no murmurs
LACWPC CDI
Soft nontender nondistended bowel sounds active
No peripheral pitting edema
Moves extremities spontaneously
AAOx3
Assessment and Plan
Recurrent left-sided pleural effusion. Believed secondary to multifactorial etiology
-Pulmonary following
-S/p thora, transudative off of fluid analysis/protein count
--cytology pending from previous thoras pending
--- Repeat chest x-ray from this morning demonstrating reaccumulation of pleural effusion. Additionally states that he feels labored from going from stretcher to bed. Pulmonary likely to go towards Pleurx catheter due to how rapidly this fluid is
reaccumulating. Pulmonary does not believe that he is a candidate for pleurodesis due to trapped lung and hydrothorax that is present.
-follow up cytology
CAD continue aspirin isosorbide statin Zetia
ESRD consult nephrology for hemodialysis recommendations
HLD continue statin and Zetia
History of chemotherapy-induced neuropathy continue gabapentin
Multiple Myeloma / Cardiac Amyloidosis
- Continue venetoclax.
- Receives Darzalex monthly.
- f/u with Oncology as an outpatient.
PT OT evaluated him no needs recommended
He will need to follow-up with outpatient pulmonary and PCP to discuss Pleurx catheter needs due to rapid reaccumulation of pleural fluid. He will need close follow-up for this.
Anticipated Discharge: Today
Subjective/Interval History
-
Date of Service: January 12, 2024
seen and examined. no new compalitns. no acute overnight events
Objective Data
-
Vital Signs:
Vital Signs
Temp Pulse Resp BP Pulse Ox
97.9 F 77 20 111/64 97
01/12/24 07:25 01/12/24 08:27 01/12/24 07:25 01/12/24 08:27 01/12/24 12:16
I&O
01/11/24 01/12/24 01/13/24
06:59 06:59 06:59
Intake Total 1919 1020 / 1020
Balance 1919 1020 / 1020
--- NOTE | 2024-01-12 14:00 | PTCARENOTE ---
Patient with discharge order. This RN in room with patient, patient stated to this RN he does not feel safe to go home today, feels 'wobbly' on feet, states he feels he needs one more day before going home. This RN communicated with MD KAREEN
maintaining discharge order. Case management in room, patient stated to CM he will be appealing discharge. made aware.
--- NOTE | 2024-01-12 15:00 | CM ---
Reviewed the chart notes patient is ready for discharge. VN offered, patient declined. SNF offered, patient declined. Patient drove self to the hospital and will transport self home at discharge. CM continues to be available to patient/family
and is monitoring medical plan for needs at discharge.
Plan: Discharge to home. No needs identified at this time.
[2024-01-12 15:20] VITALS: BP 107/57
[2024-01-12] MEDS: APRESOLINE PO (16:26)
[2024-01-12] MEDS: SINGULAIR PO (17:00)
[2024-01-12] MEDS: RISPERDAL 0.25 MG PO (22:05)
[2024-01-12] MEDS: ZETIA 10 MG PO (22:05)
[2024-01-12 23:17] VITALS: BP 121/54
[2024-01-13 06:00] VITALS: BMI 20.6
[2024-01-13 07:27] VITALS: BP 95/45
[2024-01-13] MEDS: ALDACTONE PO (08:47)
[2024-01-13] MEDS: APRESOLINE PO (08:47)
--- NOTE | 2024-01-13 08:47 | CM ---
Reviewed the chart notes and spoke with the patient at the bedside. Detailed Notice of Discharge from Medicare provided to the patient. CM continues to be available to patient/family and is monitoring medical plan for needs at discharge.
Plan: Discharge to home today. Patient drove self.
[2024-01-13] MEDS: LASIX PO (08:48)
[2024-01-13] MEDS: NEURONTIN 100 MG PO (08:48)
[2024-01-13] MEDS: ASPIR LOW (ENTERIC COATED) 81 MG PO (08:49)
[2024-01-13] MEDS: IMDUR (EXTENDED RELEASE) 30 MG PO (08:49)
[2024-01-13] MEDS: ZOVIRAX 200 MG PO (08:49)
[2024-01-13] MEDS: HEPARIN 5000 UNITS SC (08:49)
[2024-01-13] MEDS: ZYLOPRIM 100 MG PO (08:49)
[2024-01-13] MEDS: CRESTOR 10 MG PO (09:03)
[2024-01-13] MEDS: PACERONE 100 MG PO (09:03)
[2024-01-13] MEDS: LAMICTAL 100 MG PO (09:03)
[2024-01-13 11:27] VITALS: BP 104/50
--- NOTE | 2024-01-13 11:40 | W.PN.HOSP.TC ---
Today's Communication/Plan
-
dc home
More than 30 minutes spent in discharge including
Final examination of the patient
Summarizing hospital stay
Instructions for continuing care to all relevant caregivers
Preparation of discharge records, prescriptions, and referral forms
Total time spent (in minutes): 16mins
Assessment / Plan
Assessment / Plan
Physical Exam
NAD, resting comfortably in bed
Scleral anicteric
Moist mucous membranes
No JVD
CTA bilateral
Normal S1-S2 no murmurs
LACWPC CDI
Soft nontender nondistended bowel sounds active
No peripheral pitting edema
Moves extremities spontaneously
AAOx3
Assessment and Plan
Recurrent left-sided pleural effusion. Believed secondary to multifactorial etiology
-Pulmonary following
-S/p thora, transudative off of fluid analysis/protein count
--cytology pending from previous thoras pending
--- Repeat chest x-ray from this morning demonstrating reaccumulation of pleural effusion. Additionally states that he feels labored from going from stretcher to bed. Pulmonary likely to go towards Pleurx catheter due to how rapidly this fluid is
reaccumulating. Pulmonary does not believe that he is a candidate for pleurodesis due to trapped lung and hydrothorax that is present.
-follow up cytology
CAD continue aspirin isosorbide statin Zetia
ESRD consult nephrology for hemodialysis recommendations
HLD continue statin and Zetia
History of chemotherapy-induced neuropathy continue gabapentin
Multiple Myeloma / Cardiac Amyloidosis
- Continue venetoclax.
- Receives Darzalex monthly.
- f/u with Oncology as an outpatient.
PT OT evaluated him no needs recommended
He will need to follow-up with outpatient pulmonary and PCP to discuss Pleurx catheter needs due to rapid reaccumulation of pleural fluid. He will need close follow-up for this.
Anticipated Discharge: Today
Subjective/Interval History
-
Date of Service: January 13, 2024
seen an dexamined
no new complaints. no acute overnight events
appealedd discharged yesterday, medicare upheld discharge and will go home
he states he s ready and has no other choice
Objective Data
-
Vital Signs:
Vital Signs
Temp Pulse Resp BP Pulse Ox
97.6 F 77 16 104/50 96
01/13/24 07:27 01/13/24 11:27 01/13/24 11:27 01/13/24 11:27 01/13/24 07:27
I&O
01/12/24 01/13/24 01/14/24
06:59 06:59 06:59
Intake Total 1020 / 1020 480 / 480
Balance 1020 / 1020 480 / 480
--- NOTE | 2024-01-13 11:43 | W.DCSUMMARY ---
Discharge Summary
Discharge Data
Date of Admission: 01/06/24
Date of Discharge: 01/13/24
-
Pending Results: No
Hospital Course
Presented with shortness of breath, found to have reaccumulation of pleural effusion. required thoracentesis for which fluid was removed with the guidance of IR. Evaluated by pulmonary recommended obtain additional chest xray to reassess for
accumulation of fluid. Additionally, was seen by nephrology that continued hemodialysis. Was evaluated by Physical therapy the did not recommended any further needs. Again on repeat chest x-ray showed reaccumulation of fluid. Again tapped for 1400
cc. Pulmonary had discussed potential outpatient pulmonary and PCP follow-up to discuss Pleurx catheter needs and if he would benefit. On 01/10 had a repeat thora with 1L out.
CXR
IMPRESSION:
Progressive moderate left pleural effusion.
CXR
IMPRESSION:
No pneumothorax
Minimal residual left effusion
CXR
IMPRESSION:
Small left pleural effusion, slightly increased in volume when compared with the 01/07/2024 study
Discharge Plan
-
Patient Disposition: Home (Routine Discharge)
Discharge Diagnosis/Procedures: Recurrent pleural effusion
history of CAD status post stents, HFrEF, paroxysmal atrial fibrillation on Eliquis, ESRD on hemodialysis Sunday, Sunday, Sunday,, multiple myeloma, amyloidosis, hypertension, gout, hyperlipidemia, normocytic anemia, recurrent left pleural
effusion, chemotherapy-induced neuropathy, depression
Condition: Fair
Diet: As tolerated
Activity: As tolerated
Activity Restrictions/Additional Instructions:
Presented with shortness of breath, found to have reaccumulation of pleural effusion. required thoracentesis for which fluid was removed with the guidance of IR. Evaluated by pulmonary recommended obtain additional chest xray to reassess for
accumulation of fluid. Additionally, was seen by nephrology that continued hemodialysis. Was evaluated by Physical therapy the did not recommended any further needs. Again on repeat chest x-ray showed reaccumulation of fluid. Again tapped for 1400
cc. Pulmonary had discussed potential outpatient pulmonary and PCP follow-up to discuss Pleurx catheter needs and if he would benefit. On 01/10 had a repeat thora with 1L out.
CXR
IMPRESSION:
Progressive moderate left pleural effusion.
CXR
IMPRESSION:
No pneumothorax
Minimal residual left effusion
CXR
IMPRESSION:
Small left pleural effusion, slightly increased in volume when compared with the 01/07/2024 study
Referrals:
Bang Lambert III, DO [Family Provider] -
Jarrett Gill MD [Active] - in less than 1 week
Patricia Armando MD [Active] - in one to two weeks
Additional Discharge Medication Instructions: Follow-up with pulmonary in [facility], through primary physician regarding left pleural effusion
Prescriptions:
Continued
lamotrigine 100 MG tablet
100 mg PO BID
ezetimibe 10 MG tablet
10 mg PO HS
rosuvastatin 10 MG tablet
10 mg PO DAILY
aspirin 81 MG tablet,delayed release (DR/EC)
81 mg PO DAILY
allopurinol 100 MG tablet
100 mg PO DAILY
montelukast [Singulair] 10 mg Tablet
10 mg PO UD
Rx Instructions:
take the night before, night of, and night after Darzalex infusion.
gabapentin [Neurontin] 100 mg Capsule
100 mg PO TID
Darzalex 20 mg/mL Solution
1,800 mg IV QMONTH
Venclexta 100 mg Tablet
200 mg PO DAILY
risperidone 0.25 mg Tablet
0.25 mg PO HS
hydralazine 10 mg Tablet
10 mg PO TID Qty: 90 0RF
isosorbide mononitrate 30 mg Tablet Extended Release 24 Hr
30 mg PO DAILY Qty: 0 0RF
amiodarone 200 mg Tablet
100 mg PO SUTUTHSA@0800
benzonatate 100 mg Capsule
100 mg PO TIDPRN PRN (Reason: cough) Qty: 10 0RF
acyclovir 200 mg Capsule
200 mg PO BID Qty: 10 0RF
spironolactone 50 mg Tablet
50 mg PO DAILY Qty: 30 0RF
furosemide 80 mg tablet
80 mg PO BID Qty: 60 0RF
Discharge Orders:
Discharge Patient (As Directed); Ordered 01/12/24
Ordered By: Ibrahima Jeffrey
Discharge Date and Time
Print Language: MALTESE
--- NOTE | 2024-01-13 12:34 | W.PN.NEPH.PH ---
Today's Communication / Plan
-
ok for d/c
Assessment/Plan
-
Impression:
End-stage renal disease Sunday [facility] unit
Hypertension
Recurrent left pleural effusion, s/p multiple thoracentesis
Anemia
Coronary artery disease with multiple stents
Atrial fibrillation
Left IJ tunneled hemodialysis cath
History of AL amyloidosis/multiple myeloma
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
Plan:
A/w symp recurrent plerual effusion s/p thoracentesis
strict renal diet and FR
continue lasix BID at discharge
BP stable on meds and a dry weight
pending cytology per pulm, previously neg
Patient may eventually require pleural catheter as outpatient
Patient stable for discharge will receive dialysis at home unit tomorrow
-
-
Date of Service: January 13, 2024
CC / HPI / ROS
-
Chief Complaint:
ESRD
History of Present Illness:
BP stable,
ESRD Sunday
no fever
last thoracentesis 01/10 1lit
Review of Systems:
no cp or sob
feels well
Labs
-
Labs:
WBC 5.0 10^3/uL (4.8-10.8) 01/07/24 05:32
RBC 3.66 10^6/uL (4.70-6.10) L 01/07/24 05:32
Hgb 10.0 g/dL (13.0-18.0) L 01/11/24 07:37
Hct 31.3 % (39.0-52.0) L 01/11/24 07:37
Plt Count 195 10^3/uL (130-400) 01/07/24 05:32
Sodium 136 mmol/L (135-145) 01/11/24 07:37
Potassium 5.2 mmol/L (3.5-5.1) H 01/11/24 07:37
Chloride 99 mmol/L (98-107) 01/11/24 07:37
Carbon Dioxide 31 mmol/L (22-30) H 01/11/24 07:37
BUN 42 mg/dl (9-20) H 01/11/24 07:37
Creatinine 3.3 mg/dL (0.7-1.3) H 01/11/24 07:37
eGFR 18.85 01/11/24 07:37
Glucose 88 mg/dl (70-99) 01/11/24 07:37
Calcium 8.4 mg/dl (8.4-10.2) 01/11/24 07:37
Albumin 2.7 g/dl (3.5-5.0) L 01/07/24 05:32
Albumin Cancelled 01/07/24 05:32
Physical Exam
-
Vital Signs:
Vital Signs
Temp Pulse Resp BP Pulse Ox
97.6 F 77 16 104/50 96
01/13/24 07:27 01/13/24 11:27 01/13/24 11:27 01/13/24 11:27 01/13/24 07:27
Cardiovascular:: Regular rate and rhythm
Respiratory:: Bilateral: CTA (decreased)
Lung Excursion:: Normal
Abdomen:: Nontender and Soft
Extremity Edema:: None: Bilateral:
Viera Catheter: No
== END 2024-01-13 13:39 | disposition home or self-care (01) | DRG 843 ==
LOC: 2 NORTH 17:16
PROVIDERS: Physician Assistant; Radiology Vascular & Interventional Radiology; Specialist; ADMITTING PHYSICIAN Hospitalist; ATTENDING PHYSICIAN Hospitalist; CONSULT PHYSICIAN Internal Medicine; EMERGENCY PHYSICIAN Emergency Medicine; FAMILY PHYSICIAN Internal Medicine; OTHER PHYSICIAN Internal Medicine Critical Care Medicine
PROC: 0W9B3ZZ Drainage of Left Pleural Cavity, Percutaneous Approach (ICD-10-PCS; 2024-01-07)
PROC: 5A1D70Z Performance of Urinary Filtration, Intermittent, Less than 6 Hours Per Day (ICD-10-PCS; 2024-01-11)
DX: E88.09 Other disorders of plasma-protein metabolism, not elsewhere classified (principal); N18.6 End stage renal disease; J91.8 Pleural effusion in other conditions classified elsewhere; I13.2 Hypertensive heart and chronic kidney disease with heart failure and with stage 5 chronic kidney disease, or end stage renal disease; I50.42 Chronic combined systolic (congestive) and diastolic (congestive) heart failure; C90.00 Multiple myeloma not having achieved remission; E85.9 Amyloidosis, unspecified; J94.8 Other specified pleural conditions; E87.79 Other fluid overload; J44.9 Chronic obstructive pulmonary disease, unspecified; I48.0 Paroxysmal atrial fibrillation; I25.10 Atherosclerotic heart disease of native coronary artery without angina pectoris; D63.1 Anemia in chronic kidney disease; E78.00 Pure hypercholesterolemia, unspecified; G62.0 Drug-induced polyneuropathy; T45.1X5A Adverse effect of antineoplastic and immunosuppressive drugs, initial encounter; Z79.82 Long term (current) use of aspirin; R79.89 Other specified abnormal findings of blood chemistry; F32.A Depression, unspecified; M10.9 Gout, unspecified; Z99.2 Dependence on renal dialysis; Z96.653 Presence of artificial knee joint, bilateral; Z95.5 Presence of coronary angioplasty implant and graft; Z88.8 Allergy status to other drugs, medicaments and biological substances; Z88.1 Allergy status to other antibiotic agents; Z87.891 Personal history of nicotine dependence; Z79.899 Other long term (current) drug therapy
CPT/HCPCS: 88305; 32555; 71045; 71046; 80048; 80053; 82150; 82945; 83615; 83986; 84157; 84478; 84484; 85014; 85018; 85025; 87015; 87070; 87205; 87502; 87811; 88112; 89051; 90662; 93005; 97110; 97116; 97162; 99285; G0008; G0257; J2997; P9047; Q5106

== ENCOUNTER 2024-01-22 17:05 | Observation (INO) | payer MEDICARE, SELFPAY ==
[2024-01-22] VITALS (19 sets, daily range): BP systolic 59–123; BP diastolic 38–86; BMI 21.2
--- NOTE | 2024-01-22 11:51 | ED.GENMED ---
History of Present Illness
General
Chief Complaint: Breathing Problem
Source: patient
Time Seen by Provider: 01/22/24 11:42
History of Present Illness
History of Present Illness:
73-year-old male presents to the emergency room complaining of shortness of breath. Pain has been feeling increasingly short of breath since having a thoracentesis 2 weeks ago. Patient states has been having recurrent pleural effusion on the left
side. He has end-stage renal disease and is on dialysis Sunday. He did have his dialysis yesterday. Patient denies any fever, chills. He has a chronic cough which does not seem to have changed recently. No chest pain.
Past History
Past History
ED Past Medical History: Arrthythmia (Atrial fib), CAD, Cancer (multiple myeloma, Skin CA), CHF, HTN, Hypercholesterolemia, AR, Renal failure (Dialysis -W-), Psychiatric (Depression) and Other (chronic renal disease, amyloidosis, Syncope, Renal
calculus, Lymes, )
ED Past Surgical History: Cardiac (Stents X 4), Orthopedic (Cancer removed from left shoulder, Left knee meniscus, Right rotator cuff, , Bilateral knee replacement) and Other (Hernia repair, )
Social History
Tobacco: Former smoker
Alcohol: Occasional
Drug: None
Personal:
Living: alone
Employment: Not employed
Phy Exam
Physical Exam
Physical Exam:
General: Awake, Alert, Oriented X3. Very thin and chronically ill-appearing, no respiratory distress
Vitals: Mildly hypotensive
Head: Atraumatic
Eyes: Pupils equal, EOMI
Throat: Airway intact, no exudates
Neck: Trachea midline
Lungs: Absent breath sounds left base
Heart: Regular rate, no murmurs
Abd: Soft, Nontender, No pulsatile mass
Neuro: Nonfocal
Skin: Warm, dry, no rash
Extremities: pulses equal b/l, no edema
Scores
Heart Failure Risk
Heart Failure Risk Score: Yes
History of Stroke or TIA: No
History of intubation for respiratory distress: No
Heart rate on ED arrival >/= 110: No
SaO2 <90% on arrival on room air: No
HR >/=110 during 3min walk test (or too ill to perform test): Yes
ECG has acute ischemic changes: No
Urea >/=12mmol/L (BUN 33.6mg/dL): Yes
Serum CO2>/=35mmol/L: Yes
Troponin I or T elevated to AR Level (0.4mg/dL): No
NT-proBNP >/=5,000ng/L (5,000pg/ml): Yes
HF Risk Score: 6
Admission Status: VERY HIGH RISK 55.3% Consider admission to hospital
Course
Orders/Labs/Results
Orders:
Orders
01/22/24 11:21
Electrocardiogram (*1) Urgent
Reason for Study: Shortness of Breath
EKG- Treatment ONCE
01/22/24 11:50
CR Chest - 2 Views Urgent
Comment:
Reason For Exam: increasing shortness of breath
01/22/24 12:26
CMP [Comprehensive Metabolic Panel] Urgent
Complete Blood Count/With Diff Urgent
01/22/24 14:10
IRAD CONSULT Urgent
Consulting Provider: Alexi Lazaro
Was physician already notified: Yes
Reason for Consult/Procedure: thoracentesis on left
Acknowledgement that appropriate orders are entered: Yes
01/22/24 Dinner
Sodium, 2 Gram
At Your Request: Full Participation
01/22/24 15:07
Chest X-ray Portable [CR Chest Portable - 1 View] Urgent
Comment:
Reason For Exam: Left Thoracentesis
Reason Study Needs to be Portable: Unable to Transport
01/22/24 15:13
Body Fluid Cell Count Routine
What is the Body Fluid: pleural fluid
Date Specimen was Collected: 01/22/24
Time Specimen was Collected: 15:00
Comment: Left Thoracentesis
Body Fluid LDH Routine
Fluid Source: Pleural
Date Specimen was Collected: 01/22/24
Time Specimen was Collected: 15:00
Comment: Left Thoracentesis
Body Fluid Protein Routine
Fluid Source: Pleural
Date Specimen was Collected: 01/22/24
Time Specimen was Collected: 15:00
Comment: Left Thoracentesis
Body Fluid Triglycerides Routine
Fluid Source: Pleural
Date Specimen was Collected: 01/22/24
Time Specimen was Collected: 15:00
Comment: Left Thoracentesis
Body Fluid pH Routine
Fluid Source: Pleural
Date Specimen was Collected: 01/22/24
Time Specimen was Collected: 15:00
Comment: Left Thoracentesis
01/22/24 16:50
Admit/Transfer Patient As Directed
Co-Sign Provider:
Level of Care: Observation services
Assign to:: Telemetry
Physician / Group: Trang Silver
Diagnosis: plueral effusion
Reason for Telemetry: Arrhythmia
Date to Stop Telemetry: 01/25/24
Time to Stop Telemetry: 11:00
PRN Pain Medication Management As Directed
May give lesser potent ordered pain med per pt: Yes
preference::
Protocol:: Medication orders for pain may be administered in a
manner that supports deferring to patient preference
when the pt is:
- Requesting an ordered lesser potent pain medication.
Least to most potent pain medications are defined
as: acetaminophen < NSAID < tramadol < opioids
(morphine, oxycodone, hydromorphone).
- Requesting a lesser dose of the same medication IF
ORDERED.
- Requesting a less intrusive route of administration
if both routes are prescribed by the provider (PO <
IV).
01/22/24 16:51
Code Status As Directed
Resuscitation Status: Full Code
01/22/24 17:48
Consult Nephrology [NEPHROLOGY CONSULT] Routine
Consulting Provider: Kris Monae V.
Was physician already notified: Yes
Consult Pulmonary [PULMONARY CONSULT] Routine
Consulting Provider: Lance Cortes
Was physician already notified: Yes
Activity As Directed
Activity Level: With Assistance
Vital Signs As Directed
Frequency: Per unit guidelines
DX Deep Vein Thrombosis Video Routine
01/22/24 18:00
Montelukast Sodium [Singulair] 10 mg PO UD
01/22/24 19:00
Furosemide [Lasix] 80 mg PO BID AT 0800,1600
01/22/24 20:00
Acyclovir [Zovirax] 200 mg PO BID
Lamotrigine [Lamictal] 100 mg PO BID
01/22/24 22:00
Ezetimibe [Zetia] 10 mg PO HS
Gabapentin [Neurontin] 100 mg PO TID
HydrALAZINE [Apresoline] 10 mg PO TID
Risperidone [Risperdal] 0.25 mg PO HS
01/23/24 00:00
Heparin 5,000 units SC Q8
01/23/24 08:00
Allopurinol [Zyloprim] 100 mg PO DAILY
Aspirin Low Dose EC [Aspir Low (Enteric Coated)] 81 mg PO DAILY
ISOSORBIDE MONOnitrate ER [Imdur (Extended Release)] 30 mg PO DAILY
Rosuvastatin Calcium [Crestor] 10 mg PO DAILY
venetoclax [Venclexta] See Dose Instructions PO DAILY
01/23/24 12:19
Basic Metabolic Panel IN AM
Complete Blood Count/No Diff IN AM
01/24/24 08:00
Amiodarone [Pacerone] 100 mg PO DENEENSA@0800
01/25/24 11:00
DC Protocol for Telemetry ONCE
Abnormal Lab Results
01/22/24
12:26
RBC 3.72 L 10^6/uL
(4.70-6.10)
Hgb 10.7 L g/dL
(13.0-18.0)
Hct 33.7 L %
(39.0-52.0)
MCHC 31.8 L g/dL
(33.0-37.0)
RDW 16.7 H %
(11.5-14.5)
MPV 10.5 H fL
(7.4-10.4)
Absolute Lymphs (auto) 0.7 L 10^3/uL
(1.2-3.4)
Lymphocytes % 13.7 L %
(20.5-51.1)
Monocytes % 12.3 H %
(1.7-9.3)
Chloride 94 L mmol/L
(98-107)
Carbon Dioxide 33 H mmol/L
(22-30)
BUN 27 H mg/dl
(9-20)
Creatinine 2.9 H mg/dL
(0.7-1.3)
Glucose 118 H mg/dl
(70-99)
Total Protein 5.7 L g/dl
(6.3-8.2)
Albumin 3.3 L g/dl
(3.5-5.0)
01/22/24 12:26
01/22/24 12:26
Vital Signs
Initial and Last Documented VS:
Initial Vital Signs
Temp Pulse Resp BP Pulse Ox
98.3 F 77 20 91/49 96
01/22/24 11:22 01/22/24 11:22 01/22/24 11:22 01/22/24 11:22 01/22/24 11:22
Last Documented Vital Signs
Temp Pulse Resp BP Pulse Ox
98.9 F 70 18 116/70 96
01/24/24 07:00 01/24/24 07:35 01/24/24 07:00 01/24/24 07:40 01/24/24 07:00
MDM/Problems Addressed
Differential Diagnosis Includes:
Congestive heart failure, pleural effusion, symptomatic anemia
MDM/Problems Addressed:
Patient presents with progressive shortness of breath. He has had an issue with pleural effusion that keeps reaccumulating. Chest x-ray did show that he has a pleural effusion now. Patient sent to IR for thoracentesis. They were able to perform
this and take off a liter of fluid however patient does not feel like his shortness of breath has significantly improved. He was ambulated in the emergency department and continues to exhibit dyspnea with minimal exertion. He will require
hospitalization for further management of heart failure
Chronic conditions affecting care: HTN and Other (End-stage renal disease on hemodialysis)
*Pulse Oximetry
Patient hypoxic: no
*EKG
Interpretation: abnormal
Heart Rate: 77
Rate: normal
Rhythm: a-fib
QRS Pattern: normal QRS
Ischemia: non-specific ST changes
*[employer] Assistant Interpretation
Rate: normal
Heart Rate: 77
Rhythm: a-fib
*Critical Care Note
Total Time (30-74mins, 75-104mins- exclusive of procedures): Not Applicable
ED Attending Note
-
Portions of this chart may have been created with voice recognition software.� Occasional wrong word or��sound alike� substitutions may have occurred due to the inherent limitations of voice recognition software.
Discharge Plan
Departure
Patient Disposition: Admit
Date of Disposition: 01/22/24
Time of Disposition: 15:55
Presentation/result/management discussed w/ accepting MD/DO: Hospitalist
Condition: Fair
Discharge Problem:
Pleural effusion, CHF (congestive heart failure)
Interventions
Interventions:
*Risk Screen - Suicide Last Done: 01/22/24 17:57
*General Assessment Last Done: 01/22/24 11:51
*Neglect/Abuse Screening Last Done: 01/22/24 11:51
ED- Fall Risk Assessment Last Done: 01/22/24 11:52
*ED COVID-19 Vaccine History Last Done: 01/22/24 11:50
*Nursing Disposition Last Done: 01/22/24 17:57
ED- Cardiac Assessment Last Done: 01/22/24 11:52
ED- Pulmonary Assessment Last Done: 01/22/24 11:48
Discharge Date and Time
Discharge Date/Time: 01/22/24 18:06
[2024-01-22 12:39] LABS: % Basophils 1.8 % (0-2); % Eosinophils 2.1 % (0-6); % Immature Granulocytes 0.2 % (0-0.5); % Lymphocytes 13.7 % (20.5-51.1); % Monocytes 12.3 % (1.7-9.3); % Neutrophils 69.9 % (42.2-75.2); Absolute Basophils 0.1 10^3/uL (0-0.2); Absolute Eosinophils 0.1 10^3/uL (0-0.7); Absolute Lymphocytes 0.7 10^3/uL (1.2-3.4); Absolute Monocytes 0.6 10^3/uL (0.1-0.6); Absolute Neutrophils 3.6 10^3/uL (1.4-6.5); Hematocrit 33.7 % (39.0-52.0); Hemoglobin 10.7 g/dL (13.0-18.0); Mean Corp Hgb Conc. 31.8 g/dL (33.0-37.0); Mean Corpuscular Hgb 28.8 pg (27.0-31.0); Mean Corpuscular Volume 90.6 fL (80.0-94.0); Mean Platelet Volume 10.5 fL (7.4-10.4); Nucleated Red Blood Cells % 0 % (-); Platelet Count 244 10^3/uL (130-400); Red Blood Cell Count 3.72 10^6/uL (4.70-6.10); Red Cell Dist. Width 16.7 % (11.5-14.5); White Blood Cell Count 5.1 10^3/uL (4.8-10.8)
[2024-01-22 12:58] LABS: ALT (SGPT) 13 U/L (0-50); AST (SGOT) 20 U/L (17-59); Albumin 3.3 g/dl (3.5-5.0); Alkaline Phosphatase 119 U/L (38-126); Blood Urea Nitrogen 27 mg/dl (9-20); Calcium 8.6 mg/dl (8.4-10.2); Carbon Dioxide 33 mmol/L (22-30); Chloride 94 mmol/L (98-107); Estimated Creatinine Clearance 22 ml/min; Glucose 118 mg/dl (70-99); Potassium 4.4 mmol/L (3.5-5.1); Sodium 136 mmol/L (135-145); Total Bilirubin 0.5 mg/dl (0.2-1.3); Total Protein 5.7 g/dl (6.3-8.2); eGFR 22.01
[2024-01-22 15:51] LABS: Body Fluid pH 7.45
--- NOTE | 2024-01-22 16:05 | HPS.HSE ---
Family Physician
-
Family Physician: NOT KNOW UNKNOWN - PT DOES
Chief Complaint
-
Shortness of breath
History of Present Illness
Patient is a 73-year-old male with past medical history significant for ESRD on HD, CHF and a-fib who presented to [place] ED for evaluation for increased shortness of breath today. Patient stated he was unable to ambulate 10 feet without
significant shortness of breath and needing to stop. Symptoms started today and were significant he knew he needed to be evaluated. He denies any palpitations, chest pain, fever, chills, nausea, vomiting, constipation, diarrhea or urinary symptoms.
Medical History
Past Medical History
Past Medical History: Reports Other
Additional Past Medical History:
CAD
Hypertension
Chronic HFrEF
Paroxysmal Atrial Fibrillation
ESRD on HD
Multiple Myeloma / Amyloidosis
Gout
Anemia of Chronic Disease
Recurrent Left Pleural Effusion
Chemo-Induced Peripheral Neuropathy
Depression
Retroperitoneal Bleeding on Eliquis
Past Surgical History: Reports Other
Additional Past Surgical History:
Left IJ HD Catheter
R ACW Port
PTCA with Stent (x 4)
Bilateral TKA
Hernia Repair
Right Rotator Cuff Repair (x 2)
Social History
Tobacco: Former Smoker (quit in the 90s)
Alcohol: Occasional
Drug: None
Family History
Family History: Not pertinent
Allergies / Home Medications
Allergies reflects when Allergies were last updated in [employer].
Home Medications with original date entered in [employer]
Allergy/Medication List:
Allergies
Allergy/AdvReac Type Severity Reaction Status Date / Time
atorvastatin Allergy MUSCLE Verified 01/22/24 11:27
CRAMPS
Cephalosporins Allergy kidney Verified 01/22/24 11:27
disease
coconut Allergy vomits Verified 01/22/24 11:27
penicillin V Allergy Vomiting Verified 01/22/24 11:27
pregabalin [From Lyrica] Allergy Tongue Verified 01/22/24 11:27
Swelling
simvastatin Allergy muscle Verified 01/22/24 11:27
cramps
Home Medications
lamotrigine 100 mg tablet 100 mg PO BID Neurological Condition 07/24/19
ezetimibe 10 mg tablet 10 mg PO HS High cholesterol 08/26/19
rosuvastatin 10 mg tablet 10 mg PO DAILY High cholesterol 08/26/19
aspirin 81 mg tablet,delayed release 81 mg PO DAILY Blood clot prevention/tx 08/27/19
allopurinol 100 mg tablet 100 mg PO DAILY Gout 06/15/20
gabapentin 100 mg capsule (Neurontin) 100 mg PO TID Pain 09/26/21
montelukast 10 mg tablet (Singulair) 10 mg PO UD bone pain prevention 09/26/21
daratumumab 20 mg/mL intravenous solution (Darzalex) 1,800 mg IV QMONTH Cancer 04/20/23
venetoclax 100 mg tablet (Venclexta) 200 mg PO DAILY Cancer 04/20/23
risperidone 0.25 mg tablet 0.25 mg PO HS Mental Health/Anxiety 08/06/23
hydralazine 10 mg tablet 10 mg PO TID #90 tabs 08/21/23
isosorbide mononitrate 30 mg tablet,extended release 24 hr 30 mg PO DAILY HEART CONDITION #0 tabs 08/21/23
amiodarone 200 mg tablet 100 mg PO SUTUTHSA@0800 Arrhythmia 12/25/23
benzonatate 100 mg capsule 100 mg PO TIDPRN PRN cough #10 caps 12/27/23
acyclovir 200 mg capsule 200 mg PO BID #10 caps 01/02/24
furosemide 80 mg tablet 80 mg PO BID #60 tabs 01/02/24
spironolactone 50 mg tablet 50 mg PO DAILY #30 tabs 01/02/24
Review of Systems
-
History Source: Patient
Constitutional: Reports No Symptoms
EENT: Reports No Symptoms
Respiratory: Reports Trouble Breathing (signifcant SOB with minimal exertion, unable to walk 10 feet today without needing to stop)
Cardiac: Reports No Symptoms
Abdomen/GI: Reports No Symptoms
: Reports No Symptoms
Musculoskeletal: Reports No Symptoms
Skin: Reports No Symptoms
Neurological: Reports No Symptoms
Endocrine: Reports No Symptoms
Hematologic/Lymphatic: Reports No Symptoms
Psych: Reports No Symptoms
Physical Exam
Vital Signs
Vital Signs
Temp Pulse Resp BP Pulse Ox
98.2 F 64 15 123/66 98
01/22/24 14:49 01/22/24 15:21 01/22/24 15:21 01/22/24 15:21 01/22/24 15:08
Physical Exam
General: Well Developed, Well Nourished, No Apparent Distress, Comfortable and Conversant
HEENT: NormoCephalic, Moist mucous membranes and Atraumatic
Respiratory: Clear, Crackles and Non Labored Respirations; No Wheezes, Rales or Rhonchi
Cardiac: S1/S2 and Irregular Rhythm; No Murmur, Rub or Gallop
Breast: Deferred by me
GI: Soft, Non Tender, Non Distended and Normal Bowel Sounds; No Organomegaly
Rectal: Deferred by Provider
Genito-urinary: Deferred by me
Musculoskeletal: No Clubbing, No Cyanosis and No Edema
Skin: Warm, Dry and IV/Catheter Site; No Rash
Neuro: Awake, Alert, AO x 3 and Nonfocal/grossly intact
Hematologic/Lymphatic: No Lymphadenopathy
Psych: Calm and Intact Judgment/Insight
Laboratory Results
-
01/22/24 12:26
Laboratory Results
Total Bilirubin 0.5 mg/dl (0.2-1.3) 01/22/24 12:26
AST 20 U/L (17-59) 01/22/24 12:26
ALT 13 U/L (0-50) 01/22/24 12:26
Alkaline Phosphatase 119 U/L (38-126) 01/22/24 12:26
Data Reviewed
-
Diagnostic Radiology: Report Reviewed by me (CXR: Moderate new left-sided pleural effusion; CXR s/p IR: There is subsegmental atelectasis at both lung bases. The lungs are otherwise clear There is no pneumothorax)
Medical Tests (Nuc Med, Echo, EKG etc): Report Reviewed by me (Thoracentesis: Successful ultrasound-guided thoracentesis, yielding 1000 cc of clear yellow pleural fluid)
Lab Data: Labs Reviewed by me (BUN 27, Creat 2.9)
Impression/Plan
-
IMPRESSION/PLAN:
#Recurrent Left Pleural Effusion
- patient with increased shortness of breath with minimal exertion
- CXR: Moderate new left-sided pleural effusion
- s/p thoracentesis today: Successful ultrasound-guided thoracentesis, yielding 1000 cc of clear yellow pleural fluid
- continues with mild dyspnea
- Admit to telemetry
- Consult pulmonary
#ESRD on HD on
- Consult nephrology for dialysis tomorrow
#CAD s/p stent placement
- EKG: ATRIAL FIBRILLATION WITH A COMPETING JUNCTIONAL PACEMAKER
- continue aspirin
- continue isosorbide
#Hypertension
- hold spironolactone (patient states he stopped taking at home r/t hypotension @ dialysis)
- continue lasix, hydralazine
#Chronic HFrEF
- hold spironolactone (patient states he stopped taking at home r/t hypotension @ dialysis)
- continue lasix
#Paroxysmal Atrial Fibrillation
- EKG: ATRIAL FIBRILLATION WITH A COMPETING JUNCTIONAL PACEMAKER
- continue amiodarone
#Multiple Myeloma / Amyloidosis
- continue venclexta
- on darzalex monthly
#Gout
- continue allopurinol
#Anemia of Chronic Disease
- stable with no active bleeding, hgb 10.7
#Chemo-Induced Peripheral Neuropathy
- continue gabapentin
#Depression
- continue risperidone
Full Code
DVT Px: Heparin Sq
[2024-01-22 16:08] LABS: Body Fluid Mononuclear 94.9 %; Body Fluid Polymorphonuclear 5.1 %; Body Fluid WBC 689 /CUMM
[2024-01-22 16:13] LABS: Body Fluid LDH 126 U/L; Body Fluid Protein 2.1 g/dl; Body Fluid Triglycerides < 30 mg/dl
[2024-01-22 16:36] LABS: Body Fluid Second Tech EYM
--- NOTE | 2024-01-22 16:55 | W.PN.UPDATE ---
Update Note
Progress Note Update
This is an addendum to the H&P written by Amarilis Rose on 01/22/2024. Patient seen and examined independently with [facility].
73-year-old male past medical history of CAD status post stents, HFrEF, paroxysmal atrial fibrillation on Eliquis, ESRD on hemodialysis Sunday, Sunday, Sunday,, multiple myeloma, amyloidosis, hypertension, gout, hyperlipidemia, normocytic anemia,
recurrent left pleural effusion, chemotherapy-induced neuropathy, depression presenting for recurrent left pleural effusion. Patient was recently admitted for the same.
He was seen by pulmonology who recommended against Pleurx catheter. Pleural effusion appears to be multifactorial secondary to volume overload, hypoalbuminemia, myeloma. He was transudative multiple times with negative cytology and cultures.
Patient underwent thoracentesis today with drainage of 1 L with improvement but still little short of breath with some chest discomfort.
He apparently has an appointment with cardiothoracic surgery to discuss potential pleurodesis in the near future. Pulmonology consulted, nephrology consulted for routine dialysis tomorrow.
[2024-01-22] MEDS: LASIX 80 MG PO (18:26)
--- NOTE | 2024-01-22 18:55 | PTCARENOTE ---
Admission skin asssessment done, but pt would not allow RN's to remove his shoes or socks to inspect ankles/feet despite multiple attempts to explain rationale. Pt states he does not have any wounds to those areas.
[2024-01-22] MEDS: LAMICTAL 100 MG PO (19:43)
[2024-01-22] MEDS: ZOVIRAX 200 MG PO (19:43)
[2024-01-22] MEDS: RISPERDAL 0.25 MG PO (21:46)
[2024-01-22] MEDS: NEURONTIN 100 MG PO (21:46)
[2024-01-22] MEDS: ZETIA 10 MG PO (21:47)
[2024-01-22] MEDS: APRESOLINE 10 MG PO (23:33)
[2024-01-22] MEDS: HEPARIN 5000 UNITS SC (23:33)
[2024-01-23 03:23] VITALS: BP 107/74
[2024-01-23 06:00] VITALS: BMI 21.0
[2024-01-23 07:00] VITALS: BP 95/45
[2024-01-23] MEDS: CRESTOR 10 MG PO (08:37)
[2024-01-23] MEDS: ASPIR LOW (ENTERIC COATED) 81 MG PO (08:42)
[2024-01-23] MEDS: LAMICTAL 100 MG PO ×2 (08:42→19:52)
[2024-01-23] MEDS: NEURONTIN 100 MG PO ×3 (08:43→22:59)
[2024-01-23] MEDS: ZYLOPRIM 100 MG PO (08:43)
[2024-01-23] MEDS: HEPARIN 5000 UNITS SC ×3 (08:43→23:00)
--- NOTE | 2024-01-23 09:20 | CON.PUL ---
Consultation
Consultation Request
Date/Time Consultation Requested: 01/22/2024 - 1747
Date/Time Consultation Performed: 01/23/2024 - 915
Requesting Provider: JASMYN Sutherland
Performing Provider: Lance Cortes MD
Reason for Consultation: Pleural effusion/SOB
Medical History
-
Chief Complaint: Worsening SOB
History of Present Illness:
73-year-old male non-smoker with a past medical history of ESRD on HD, CAD s/p coronary stents x 4, history of Lyme disease, MM on Darzalex, amyloidosis, chronic HFpEF, IgG gammopathy, DJD, RLS, A-fib s/p cardioversion, reported history of COPD and
former tobacco smoker with 30+ pack year history who presents with worsening shortness of breath. Last dialysis was last Sunday. In the ER he was afebrile to 98.3 �F, pulse rate 77, breathing at 20 breaths/min, BP 91/49 and saturating 96% on room
air. Labs showed normal WBC at 5.1, Hb 10.7, serum bicarbonate level 33, glucose 118, and albumin level 3.3. CXR showed worsening left-sided pleural effusion. IR performed left-sided thoracentesis removing 1 L of clear yellow fluid.
Post-thoracentesis CXR showed subsegmental atelectasis at the left lung base. Fluid studies showed transitive fluid with fluid WBC 689 which was monocyte predominant. Fluid pH: 7.45. He was admitted to telemetry under the hospitalist and now
pulmonary service consulted for additional management/recommendations.
Of note, patient has a history of recurrent left-sided pleural effusions s/p multiple thoracenteses this year. It is suspected to be due to ongoing volume overload in the setting of ESRD, multiple myeloma and hypoalbuminemia. In December 2023,
Lasix + spironolactone was started in an attempt to help reduce pleural fluid reaccumulation. He was recently hospitalized from 01/05 - 01/13/2024 due to recurrent left-sided pleural effusion with SOB. His last thoracentesis was on 01/11/2024,
removing 1050 cc of clear yellow pleural fluid. CXR s/p thoracentesis showed mild improvement in the volume of effusion.
When I saw the patient he was resting in bed in no acute distress. He says that after his last hospitalization that he did feel better but then started to get short of breath with activity over the last several days. He has a slight cough but it
is not bothersome. He says he has not missed any of his HD sessions. He currently denies fevers, chills, GARCIA, chest pain, nausea, vomiting.
PMHx: IgG gammopathy, ESRD on HD, CAD s/p coronary stents x 4, hypertension, history of Lyme disease, multiple myeloma on Darzalex, amyloidosis, chronic HFpEF, degenerative joint disease, restless leg syndrome, A-fib s/p cardioversion, history of
COPD, left knee torn meniscus, former tobacco smoker with 30+ pack years
PShx: Bilateral TKA, coronary stents x 3 (2002) and stent x 1 (2019), rotator cuff tear x 3, arthroscopic repair of left knee torn meniscus (2000)
Past Medical History
Past Medical History: Other (Above as per HPI)
Past Surgical History: Other (Above as per HPI)
Social History
Tobacco: Non-smoker
Alcohol: Occasional
Drug: None
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
Family History
Family History: Hypertension (Mother)
Allergies / Home Medications
Allergies
Allergy/AdvReac Type Severity Reaction Status Date / Time
atorvastatin Allergy MUSCLE Verified 01/22/24 11:27
CRAMPS
Cephalosporins Allergy kidney Verified 01/22/24 11:27
disease
coconut Allergy vomits Verified 01/22/24 11:27
penicillin V Allergy Vomiting Verified 01/22/24 11:27
pregabalin [From Lyrica] Allergy Tongue Verified 01/22/24 11:27
Swelling
simvastatin Allergy muscle Verified 01/22/24 11:27
cramps
Home Medications
�Medication �Instructions �Recorded �Confirmed �Last Taken �Type
lamotrigine 100 mg tablet 100 mg PO BID Neurological 07/24/19 01/22/24 01/22/24 History
Condition
ezetimibe 10 mg tablet 10 mg PO HS High cholesterol 08/26/19 01/22/24 01/21/24 History
rosuvastatin 10 mg tablet 10 mg PO DAILY High cholesterol 08/26/19 01/22/24 01/22/24 History
aspirin 81 mg tablet,delayed 81 mg PO DAILY Blood clot 08/27/19 01/22/24 01/22/24 History
release prevention/tx
allopurinol 100 mg tablet 100 mg PO DAILY Gout 06/15/20 01/22/24 01/22/24 History
gabapentin 100 mg capsule 100 mg PO TID Pain 09/26/21 01/22/24 01/22/24 History
(Neurontin)
montelukast 10 mg tablet 10 mg PO UD bone pain prevention 09/26/21 01/22/24 12/24/23 History
(Singulair)
daratumumab 20 mg/mL intravenous 1,800 mg IV QMONTH Cancer 04/20/23 01/22/24 12/24/23 History
solution (Darzalex)
venetoclax 100 mg tablet 200 mg PO DAILY Cancer 04/20/23 01/22/24 2 Weeks Ago History
(Venclexta) ~01/08/24
risperidone 0.25 mg tablet 0.25 mg PO HS Mental Health/Anxiety 08/06/23 01/22/24 01/21/24 History
hydralazine 10 mg tablet 10 mg PO TID #90 tabs 08/21/23 01/22/24 01/22/24 Rx
isosorbide mononitrate 30 mg 30 mg PO DAILY HEART CONDITION #0 08/21/23 01/22/24 01/22/24 Rx
tablet,extended release 24 hr tabs
amiodarone 200 mg tablet 100 mg PO SUTUTHSA@0800 Arrhythmia 12/25/23 01/22/24 01/22/24 History
benzonatate 100 mg capsule 100 mg PO TIDPRN PRN cough #10 caps 12/27/23 01/22/24 Unknown Rx
acyclovir 200 mg capsule 200 mg PO BID #10 caps 01/02/24 01/22/24 01/22/24 Rx
furosemide 80 mg tablet 80 mg PO BID #60 tabs 01/02/24 01/22/24 01/22/24 Rx
spironolactone 50 mg tablet 50 mg PO DAILY #30 tabs 01/02/24 01/22/24 01/06/24 Rx
Review of Systems
-
History Source: Patient
All other systems: Negative unless noted
Vitals / Labs / Diagnostic Testing
Vital Signs
Temp Pulse Resp BP Pulse Ox
98.4 F 63 18 95/45 99
01/23/24 07:00 01/23/24 07:00 01/23/24 07:00 01/23/24 07:00 01/23/24 07:00
Diagnostic Testing:
Physical Exam
-
HEENT: Normocephalic and Anicteric
Cardiovascular: S1/S2, Murmur (RONIT heard at LUSB) and Peripheral Edema (negative)
Respiratory: Wheeze, Rales (Bibasilar with rales also heard in the left middle lung field) and Accessory Resp Muscle Use (negative)
GI: Soft, Non Distended, Non Tender and Normal Bowel Sounds
Neurology: Awake and Alert
Skin: Warm and Dry
General: Respiratory Distress (negative), Comfortable, Chills (negative) and Sweats (negative)
Assessment
-
Assessment: 73-year-old male non-smoker with a past medical history of ESRD on HD, CAD s/p coronary stents x 4, history of Lyme disease, MM on Darzalex, amyloidosis, chronic HFpEF, IgG gammopathy, DJD, RLS, A-fib s/p cardioversion, reported history
of COPD and former tobacco smoker with 30+ pack year history who presents with worsening shortness of breath. Last dialysis was last Sunday. In the ER he was afebrile to 98.3 �F, pulse rate 77, breathing at 20 breaths/min, BP 91/49 and saturating
96% on room air. Labs showed normal WBC at 5.1, Hb 10.7, serum bicarbonate level 33, glucose 118, and albumin level 3.3. CXR showed worsening left-sided pleural effusion. IR performed left-sided thoracentesis removing 1 L of clear yellow fluid.
Post-thoracentesis CXR showed subsegmental atelectasis at the left lung base. Fluid studies showed transitive fluid with fluid WBC 689 which was monocyte predominant. Fluid pH: 7.45. He was admitted to telemetry under the hospitalist and now
pulmonary service consulted for additional management/recommendations.
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
cardioversion, history of COPD, left knee torn meniscus, former tobacco smoker with 30+ pack years
Impression:
#Left-sided recurrent pleural effusion with history of multiple thoracentesis
#Chronic anemia (baseline Hb: 8.5-10.5g/dL)
#Metabolic alkalosis
#History of MM on Darzalex
#History of amyloidosis
#Chronic HFpEF/HFmrEF (last TTE from 11/02/2023 showed LVEF: 45-50% with normal RV size/function and moderate-severe LVH with mild global hypokinesis)
Plan:
- Patient feels much better after thoracentesis yesterday
- On exam he has bibasilar crackles which is worse on the left hemithorax
- Recheck CXR tomorrow morning to assess for reaccumulation
- Considering that he has had 8 thoracentesis procedures this year, perhaps a Pleurx catheter would be the best route here going forward
- Depending on CXR findings tomorrow, will consider CT chest to get better view of lung parenchyma and pleural lining
- He remains on room air and is breathing comfortably currently
- Will get HD session today
- Maintain SpO2 >90-94% with supplemental O2 as needed
- Continue lasix + aldactone; may need to raise these doses to see if it helps reduce pleural fluid re-accumulation
- Incentive spirometer encouraged
- Replete electrolytes with K>4, Mg>2
- Maintain euglycemia with goal BG >100 and <180
- prn nebulized bronchodilators - not currently bronchospastic
- DVT ppx: HSQ
Pulmonary service will continue to follow along. Outpatient follow-up was recently attempted however he was unable to make it to the appointment. Will continue to arrange for outpatient follow-up.
Data:
CXR 01/22/2024 (compared to CXR from 01/11/2024): Moderate new left-sided pleural effusion
Total time spent today was 57 minutes for this encounter. Time includes reviewing laboratory test/imaging results, reviewing pertinent medical records, obtaining and reviewing medical history, performing an appropriate exam, ordering medications,
tests and procedures. Time also includes documentation of this encounter, coordinating patient care and communicating with other healthcare professionals. Total time does not include separately billed tests performed on this date of service.
[2024-01-23] MEDS: APRESOLINE PO ×2 (09:57→15:20)
[2024-01-23] MEDS: IMDUR (EXTENDED RELEASE) PO (09:58)
[2024-01-23] MEDS: LASIX PO ×2 (09:58→15:21)
[2024-01-23] MEDS: ZOVIRAX 200 MG PO ×2 (09:59→19:53)
[2024-01-23 11:00] VITALS: BP 94/43
--- NOTE | 2024-01-23 11:18 | CM ---
CM reviewed chart, met with patient bedside. Patient resides independently in a single story home, one small step to enter. Patient has a cane for ambulation, denies VN or SNF. Patient currently receiving HD through [facility] in [place], [place] ([place],
W, ). Patient confirms PCP Bang Lambert, [facility], confirms prescription coverage. Patient denies insecurities at home. form reviewed, refused to sign, placed in chart, patient provided with copy. CM will
continue to follow for all discharge planning needs.
Plan; home with HD at [facility].
--- NOTE | 2024-01-23 11:23 | W.PN.HOSP.TC ---
Addendum entered and electronically signed by Ibrahima Jeffrey MD 01/23/24 12:57:
presented with sob, chest tightness
found to have recurrent pleural effusion
drained in the ed for 1l out
for hd today
can dc home after as he states he is feeling better
he will f/u with [facility] on 02/04 for pleurodesis.
Original Note:
Today's Communication/Plan
-
* Hemodialysis today.
* Pulmonary consultation.
* Possible discharge today.
Assessment / Plan
Assessment / Plan
Assessment
Jace Shore, age 73, has had worsening shortness of breath for the past couple of days. 1000 cc of clear yellow fluid was drained this admission with significant improvement in symptoms. He has had recurrent left pleural effusions this past
year and has required multiple admissions. Not a great candidate for pleural catheter per discussions with pulmonology in the past and patient does not want it. He is supposed to follow-up with cardiothoracic surgery outpatient to discuss
pleurodesis.
Impression and plan
Recurrent left pleural effusions
- Status-post thoracentesis draining 1000 cc of clear yellow fluid.
- Pain management and oxygen supplementation if needed.
- Pulmonology consulted.
- Hemodialysis today will hopefully help off-load more fluid.
End-stage renal disease
- Ykdcqg-[id number]-Nudcta schedule.
- Nephrology consulted for dialysis today.
Multiple myeloma
Light chain amyloidosis
- Continue venetoclax.
- On daratumumab monthly.
- Acyclovir prophylaxis.
Chronic heart failure with reduced ejection fraction
- Not in acute exacerbation.
- Continue furosemide and spironolactone.
- GDMT as tolerated in setting of ESRD.
Paroxysmal atrial fibrillation
- Direct oral anticoagulation permanently discontinued after retroperitoneal hemorrhage in 2023.
- Continue amiodarone.
Atherosclerotic cardiovascular disease
Hyperlipidemia
- Continue isosorbide mononitrate, rosuvastatin and ezetimibe.
Anemia of chronic and renal disease
- Multifactorial.
- Trend CBC; stable.
Peripheral neuropathy, secondary to chemotherapy
- Continue gabapentin.
Depression
- Continue risperidone and lamotrigine.
Thromboprophylaxis
- Heparin.
Code status
- Full.
Anticipated Discharge: Today
Subjective/Interval History
-
Date of Service: January 23, 2024
Symptoms better after thoracentesis. Feeling good at present.
Objective Data
-
Labs:
Laboratory Results
01/23/24
06:00
WBC Pending
Hgb Pending
Hct Pending
Plt Count Pending
Sodium Pending
Potassium Pending
Chloride Pending
Carbon Dioxide Pending
BUN Pending
Creatinine Pending
Glucose Pending
Calcium Pending
Vital Signs:
Vital Signs
Temp Pulse Resp BP Pulse Ox
98.1 F 69 18 94/43 99
01/23/24 11:00 01/23/24 11:00 01/23/24 11:00 01/23/24 11:00 01/23/24 11:00
I&O
01/22/24 01/23/24 01/24/24
06:59 06:59 06:59
Intake Total 240 / 240
Balance 240 / 240
Review of Systems
-
History Source: Patient
Constitutional: Reports No Symptoms
EENT: Reports No Symptoms Reported
Respiratory: Reports No Symptoms
Cardiac: Reports No Symptoms
Abdomen/GI: Reports No Symptoms
Genitourinary: Reports No Symptoms
Musculoskeletal: Reports No Symptoms
Skin: Reports No Symptoms
Neuro: Reports No Symptoms
Endocrine: Reports No Symptoms
Hematologic / Lymphatic: Reports No Symptoms
Allergy / Immunology: Reports No Symptoms
Physical Exam
-
General: No Apparent Distress and Comfortable
HEENT: Normocephalic, Atraumatic, Moist Mucous Membranes, Anicteric and No Ptosis
Respiratory: Crackles (mild throughout left) and Non Labored Respirations
Cardiac: Regular Rhythm and Irregular Rhythm
GI: Soft, Nontender, Nondistended and No Hepatosplenomegaly
Genito-urinary: No Costovertebral Tender
Musculoskeletal: No Clubbing, No Cyanosis and No Edema
Skin: Warm, Dry and IV Access / Catheter Site
Neuro: Awake, Alert, Oriented and Nonfocal/Grossly Intact
Hematologic / Lymphatic: No Lymphadenopathy
Psych: Calm
[2024-01-23 12:46] LABS: Hematocrit 35.2 % (39.0-52.0); Hemoglobin 10.9 g/dL (13.0-18.0); Mean Corpuscular Hgb 27.3 pg (27.0-31.0); Mean Corpuscular Volume 88.2 fL (80.0-94.0); Mean Platelet Volume 10.1 fL (7.4-10.4); Platelet Count 266 10^3/uL (130-400); Red Blood Cell Count 3.99 10^6/uL (4.70-6.10); Red Cell Dist. Width 16.9 % (11.5-14.5); White Blood Cell Count 5.2 10^3/uL (4.8-10.8)
[2024-01-23 12:57] LABS: Blood Urea Nitrogen 36 mg/dl (9-20); Calcium 8.5 mg/dl (8.4-10.2); Carbon Dioxide 30 mmol/L (22-30); Chloride 94 mmol/L (98-107); Estimated Creatinine Clearance 17 ml/min; Glucose 98 mg/dl (70-99); LDH 194 U/L (120-246); Potassium 4.8 mmol/L (3.5-5.1); Sodium 135 mmol/L (135-145); eGFR 16.98
[2024-01-23 15:00] VITALS: BP 98/48
--- NOTE | 2024-01-23 15:13 | W.CON.NEPH ---
Consultation
-
Date/Time Consultation Requested: 01/23/24 0900
Date/Time Consultation Performed: 01/23/24 1500
Requesting Provider: Dr Blanton
Performing Provider: Dr Perdue
Reason for Consultation: ESRD
Medical History
-
Chief Complaint: SOB
History of Present Illness:
73y/o M with ESRD on HD recently started in July 2023. He has a left IJ tunneled catheter and receives dialysis at [facility] on MWF, HTN on a multidrug regimen, ASCVD on ASA, HFrEF on hydralazine/imdur, recurrent pleural effusion requiring
thoracentesis on several occasions. He underwent thoracentesis 1000cc of his left side 01/22/2024 with some improvement. He said he received his usual dialysis treatment as outpatient unit on Sunday and this was without difficulty. His blood
pressure did dip under 90 systolic. They ultrafiltered 1 kg which was his gain. He reports sob develops rather quickly. Currently her feels well, dry cough no change. No CP or fever. His spironolactone was discontinued given persistent
hypotension as an outpatient
Past Medical History
ASCVD
Hypertension
Chronic HFrEF
Paroxysmal Atrial Fibrillation
ESRD on HD MWF left CVC
Multiple Myeloma / Amyloidosis
Gout
Anemia of Chronic Disease
Recurrent Left Pleural Effusion
Chemo-Induced Peripheral Neuropathy
Depression
Retroperitoneal Bleeding on Eliquis
Past Surgical History: Other (Left IJ HD Catheter R ACW Port PTCA with Stent (x 4) Bilateral TKA Hernia Repair Right Rotator Cuff Repair (x 2))
Social History
Tobacco: Former Smoker (quit in )
Alcohol: Occasional
Drug: None
Family History
Family History: Not Pertinent
Allergies / Home Medications
Allergy/AdvReac Type Severity Reaction Status Date / Time
atorvastatin Allergy MUSCLE Verified 01/22/24 11:27
CRAMPS
Cephalosporins Allergy kidney Verified 01/22/24 11:27
disease
coconut Allergy vomits Verified 01/22/24 11:27
penicillin V Allergy Vomiting Verified 01/22/24 11:27
pregabalin [From Lyrica] Allergy Tongue Verified 01/22/24 11:27
Swelling
simvastatin Allergy muscle Verified 01/22/24 11:27
cramps
�Medication �Instructions �Recorded �Confirmed �Type
lamotrigine 100 mg tablet 100 mg PO BID Neurological 07/24/19 01/22/24 History
Condition
ezetimibe 10 mg tablet 10 mg PO HS High cholesterol 08/26/19 01/22/24 History
rosuvastatin 10 mg tablet 10 mg PO DAILY High cholesterol 08/26/19 01/22/24 History
aspirin 81 mg tablet,delayed 81 mg PO DAILY Blood clot 08/27/19 01/22/24 History
release prevention/tx
allopurinol 100 mg tablet 100 mg PO DAILY Gout 06/15/20 01/22/24 History
gabapentin 100 mg capsule 100 mg PO TID Pain 09/26/21 01/22/24 History
(Neurontin)
montelukast 10 mg tablet 10 mg PO UD bone pain prevention 09/26/21 01/22/24 History
(Singulair)
daratumumab 20 mg/mL intravenous 1,800 mg IV QMONTH Cancer 04/20/23 01/22/24 History
solution (Darzalex)
venetoclax 100 mg tablet 200 mg PO DAILY Cancer 04/20/23 01/22/24 History
(Venclexta)
risperidone 0.25 mg tablet 0.25 mg PO HS Mental Health/Anxiety 08/06/23 01/22/24 History
hydralazine 10 mg tablet 10 mg PO TID #90 tabs 08/21/23 01/22/24 Rx
isosorbide mononitrate 30 mg 30 mg PO DAILY HEART CONDITION #0 08/21/23 01/22/24 Rx
tablet,extended release 24 hr tabs
amiodarone 200 mg tablet 100 mg PO SUTUTHSA@0800 Arrhythmia 12/25/23 01/22/24 History
benzonatate 100 mg capsule 100 mg PO TIDPRN PRN cough #10 caps 12/27/23 01/22/24 Rx
acyclovir 200 mg capsule 200 mg PO BID #10 caps 01/02/24 01/22/24 Rx
furosemide 80 mg tablet 80 mg PO BID #60 tabs 01/02/24 01/22/24 Rx
spironolactone 50 mg tablet 50 mg PO DAILY #30 tabs 01/02/24 01/22/24 Rx
Review of Systems
-
Shortness of breath
All other systems: Negative unless noted
Physical Exam
Vital Signs
Vital Signs
Temp Pulse Resp BP Pulse Ox
98.1 F 69 18 94/43 99
01/23/24 11:00 01/23/24 11:00 01/23/24 11:00 01/23/24 11:00 01/23/24 11:00
Lab Results
WBC 5.2 10^3/uL (4.8-10.8) 01/23/24 12:19
RBC 3.99 10^6/uL (4.70-6.10) L 01/23/24 12:19
Hgb 10.9 g/dL (13.0-18.0) L 01/23/24 12:19
Hct 35.2 % (39.0-52.0) L 01/23/24 12:19
Plt Count 266 10^3/uL (130-400) 01/23/24 12:19
Sodium 135 mmol/L (135-145) 01/23/24 12:19
Potassium 4.8 mmol/L (3.5-5.1) 01/23/24 12:19
Chloride 94 mmol/L (98-107) L 01/23/24 12:19
Carbon Dioxide 30 mmol/L (22-30) 01/23/24 12:19
BUN 36 mg/dl (9-20) H 01/23/24 12:19
Creatinine 3.6 mg/dL (0.7-1.3) H 01/23/24 12:19
eGFR 16.98 01/23/24 12:19
Glucose 98 mg/dl (70-99) 01/23/24 12:19
Calcium 8.5 mg/dl (8.4-10.2) 01/23/24 12:19
Albumin 3.3 g/dl (3.5-5.0) L 01/22/24 12:26
Laboratory Tests
01/11/24
07:37
Hgb 10.0 L
Potassium 5.2 H
Physical Exam
Patient is awake alert oriented and in no distress. Mood and affect were pleasant, insight and judgment were good. Pupils are equal round and reactive to light, extraocular movements are intact, sclera were anicteric. Hearing was normal, ears and
nose are intact. Oropharynx was clear. Neck was supple with trachea midline and no thyromegaly. Heart was regular rate and rhythm without rubs. Lower extremities without edema. Lungs were clear to auscultation bilaterally and with normal
excursion. Abdomen was soft, nontender, with normal active bowel sounds, and no hepatosplenomegaly. Skin was without rash and with normal turgor.
Data Reviewed
-
Radiology: Image Personally Visualized and interpreted (Chest x-ray on 01/22/2024 by my reading shows bilateral lower lobe atelectasis)
Medical Tests (Nuc Med, Echo etc): Image Personally Visualized and interpreted (EKG on 01/22/2024 by my reading shows atrial fibrillation left anterior fascicular block left ventricular hypertrophy lateral ST-T wave abnormality)
Labs: Labs Reviewed by me
Old Records: Reviewed
Assessment/Plan
-
Impression:
End-stage renal disease Sunday [place] unit
hypotension
Recurrent left pleural effusion, s/p multiple thoracentesis
Anemia
Coronary artery disease with multiple stents
Atrial fibrillation
Heart failure reduced ejection fraction
Left IJ tunneled hemodialysis cath
AL amyloidosis/multiple myeloma
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
Plan:
HD today
Continue Lasix twice daily
Could consider switching hydralazine/isosorbide to low-dose lisinopril given hypotension
Midodrine predialysis
Patient may eventually require pleural catheter as outpatient
[2024-01-23] MEDS: ProAmatine 5 MG PO (16:46)
--- NOTE | 2024-01-23 16:47 | W.PN.NEPH.HD ---
Assessment
-
Seen on HD. no new complaints. VSS, access ok
Progress Note - Hemodialysis
-
Date of Service: January 23, 2024
Duration: 30 minutes and 3 hours
Potassium Bath: 2
Calcium Bath: 2.5
Opti-Dialyzer: 160
Ultrafiltration: Other (1kg)
Blood Flow: 400
Dialysate Flow: 600
Heparin: 500x2
EPO: 4000 units
[2024-01-23] MEDS: HEPARIN 500 UNITS IV ×2 (16:55→17:55)
[2024-01-23] MEDS: FLEXBUMIN 25% FOR HEMODIALYSIS 12.5 GRAMS IV (18:38)
[2024-01-23] MEDS: RETACRIT 4000 UNITS IV (18:47)
[2024-01-23 19:22] VITALS: BP 102/57
[2024-01-23] MEDS: ZETIA 10 MG PO (19:53)
[2024-01-23] MEDS: HEPARIN 4600 UNITS INTRACATH (21:06)
[2024-01-23] MEDS: FLEXBUMIN 25% FOR HEMODIALYSIS IV (21:07)
[2024-01-23 22:52] VITALS: BP 121/50
[2024-01-23] MEDS: APRESOLINE 10 MG PO (22:59)
[2024-01-23] MEDS: RISPERDAL 0.25 MG PO (22:59)
[2024-01-24 02:58] VITALS: BP 120/50
[2024-01-24 05:50] LABS: Blood Urea Nitrogen 20 mg/dl (9-20); Calcium 8.5 mg/dl (8.4-10.2); Carbon Dioxide 30 mmol/L (22-30); Chloride 101 mmol/L (98-107); Estimated Creatinine Clearance 27 ml/min; Glucose 72 mg/dl (70-99); Potassium 4.3 mmol/L (3.5-5.1); Sodium 138 mmol/L (135-145); eGFR 29.07
[2024-01-24 06:00] VITALS: BMI 19.8
[2024-01-24 06:09] LABS: Hematocrit 31.1 % (39.0-52.0); Hemoglobin 9.7 g/dL (13.0-18.0); Mean Corp Hgb Conc. 31.2 g/dL (33.0-37.0); Mean Corpuscular Hgb 27.4 pg (27.0-31.0); Mean Corpuscular Volume 87.9 fL (80.0-94.0); Mean Platelet Volume 10.4 fL (7.4-10.4); Platelet Count 210 10^3/uL (130-400); Red Blood Cell Count 3.54 10^6/uL (4.70-6.10); Red Cell Dist. Width 16.7 % (11.5-14.5); White Blood Cell Count 4.1 10^3/uL (4.8-10.8)
[2024-01-24 07:00] VITALS: BP 116/50
--- NOTE | 2024-01-24 07:23 | W.PN.HOSP.TC ---
Addendum entered and electronically signed by Ibrahima Jeffrey MD 01/24/24 14:26:
dc home.
Original Note:
Today's Communication/Plan
-
* Outpatient cardiothoracic surgery evaluation for pleurodesis.
* Discharge today.
Assessment / Plan
Assessment / Plan
Assessment
Jace Shore, age 73, has had worsening shortness of breath for the past couple of days. 1000 cc of clear yellow fluid was drained this admission with significant improvement in symptoms. He has had recurrent left pleural effusions this past
year and has required multiple admissions. Not a great candidate for pleural catheter per discussions with pulmonology in the past and patient does not want it. He is supposed to follow-up with cardiothoracic surgery outpatient to discuss
pleurodesis.
Impression and plan
Recurrent left pleural effusions
- Status-post thoracentesis draining 1000 cc of clear yellow fluid.
- Pain management and oxygen supplementation if needed.
- Pulmonology consulted.
- Hemodialysis yesterday; respiratory exam improved.
- Repeat chest x-ray today with a small progression; asymptomatic and hemodynamically stable with unremarkable exam today.
End-stage renal disease
- Pycpfo-Cqcmxdtah-Vpijjq schedule.
- Dialyzed on 01-23-24 without complications.
- Nephrology following.
Multiple myeloma
Light chain amyloidosis
- Continue venetoclax.
- On daratumumab monthly.
- Acyclovir prophylaxis.
Chronic heart failure with reduced ejection fraction
- Not in acute exacerbation.
- Continue furosemide and spironolactone.
- GDMT as tolerated in setting of ESRD.
Paroxysmal atrial fibrillation
- Direct oral anticoagulation permanently discontinued after retroperitoneal hemorrhage in 2023.
- Continue amiodarone.
Atherosclerotic cardiovascular disease
Hyperlipidemia
- Continue isosorbide mononitrate, rosuvastatin and ezetimibe.
Anemia of chronic and renal disease
- Multifactorial.
- Trend CBC; stable.
Peripheral neuropathy, secondary to chemotherapy
- Continue gabapentin.
Depression
- Continue risperidone and lamotrigine.
Thromboprophylaxis
- Heparin.
Code status
- Full.
Anticipated Discharge: Today
Subjective/Interval History
-
Date of Service: January 24, 2024
Stable overnight. No respiratory symptoms. Vitals and blood work good.
Objective Data
-
Labs:
Laboratory Results
01/24/24
04:49
WBC 4.1 L
Hgb 9.7 L
Hct 31.1 L
Plt Count 210 D
Sodium 138
Potassium 4.3
Chloride 101
Carbon Dioxide 30
BUN 20
Creatinine 2.3 H
Glucose 72
Calcium 8.5
Vital Signs:
Vital Signs
Temp Pulse Resp BP Pulse Ox
98.8 F 66 18 120/50 95
01/24/24 02:58 01/24/24 02:58 01/24/24 02:58 01/24/24 02:58 01/24/24 02:58
I&O
01/23/24 01/24/24 01/25/24
06:59 06:59 06:59
Intake Total 240 / 240 720 / 720
Balance 240 / 240 720 / 720
Review of Systems
-
History Source: Patient
Constitutional: Reports No Symptoms
EENT: Reports No Symptoms Reported
Respiratory: Reports No Symptoms
Cardiac: Reports No Symptoms
Abdomen/GI: Reports No Symptoms
Genitourinary: Reports No Symptoms
Musculoskeletal: Reports No Symptoms
Skin: Reports No Symptoms
Neuro: Reports No Symptoms
Endocrine: Reports No Symptoms
Hematologic / Lymphatic: Reports No Symptoms
Allergy / Immunology: Reports No Symptoms
Physical Exam
-
General: No Apparent Distress and Comfortable
HEENT: Normocephalic, Atraumatic, Moist Mucous Membranes, Anicteric and No Ptosis
Respiratory: Crackles (mild, left bases) and Non Labored Respirations
Cardiac: Regular Rhythm and Irregular Rhythm
GI: Soft, Nontender, Nondistended and No Hepatosplenomegaly
Genito-urinary: No Costovertebral Tender
Musculoskeletal: No Clubbing, No Cyanosis and No Edema
Skin: Warm, Dry and IV Access / Catheter Site
Neuro: Awake, Alert, Oriented and Nonfocal/Grossly Intact
Hematologic / Lymphatic: No Lymphadenopathy
Psych: Calm
[2024-01-24] MEDS: ZYLOPRIM 100 MG PO (07:34)
[2024-01-24] MEDS: LAMICTAL 100 MG PO (07:34)
[2024-01-24] MEDS: NEURONTIN 100 MG PO (07:34)
[2024-01-24] MEDS: CRESTOR 10 MG PO (07:34)
[2024-01-24] MEDS: ZOVIRAX 200 MG PO (07:35)
[2024-01-24] MEDS: ASPIR LOW (ENTERIC COATED) 81 MG PO (07:35)
[2024-01-24] MEDS: PACERONE 100 MG PO (07:35)
[2024-01-24] MEDS: APRESOLINE 10 MG PO (07:38)
[2024-01-24] MEDS: ALDACTONE 50 MG PO (07:39)
[2024-01-24] MEDS: HEPARIN 5000 UNITS SC (07:40)
[2024-01-24] MEDS: LASIX 80 MG PO (07:40)
[2024-01-24] MEDS: IMDUR (EXTENDED RELEASE) 30 MG PO (07:40)
[2024-01-24 08:11] VITALS: BP 116/50
--- NOTE | 2024-01-24 09:33 | W.PN.PUL3 ---
Today's Communication / Plan
-
CXR this morning shows worsening left pleural effusion albeit it is still small
Considering that patient has had 8 thoracentesis procedures since March 2023, recommend Pleurx catheter at this juncture to avoid continued readmissions --> pt declined
Would consider raising lasix and aldactone dosing on discharge to see if this helps reduce the rate of fluid re-accumulation into his left pleural space
Patient doing fair for discharge home today. No additional pulmonary recommendations at this time. Pulmonary service will now sign off. Please reconsult if there are any additional questions/concerns, or if patient's respiratory status
deteriorates. Will arrange for outpatient follow-up.
Assessment
-
Assessment: 73-year-old male non-smoker with a past medical history of ESRD on HD, CAD s/p coronary stents x 4, history of Lyme disease, MM on Darzalex, amyloidosis, chronic HFpEF, IgG gammopathy, DJD, RLS, A-fib s/p cardioversion, reported history
of COPD and former tobacco smoker with 30+ pack year history who presents with worsening shortness of breath. Last dialysis was last Sunday. In the ER he was afebrile to 98.3 �F, pulse rate 77, breathing at 20 breaths/min, BP 91/49 and saturating
96% on room air. Labs showed normal WBC at 5.1, Hb 10.7, serum bicarbonate level 33, glucose 118, and albumin level 3.3. CXR showed worsening left-sided pleural effusion. IR performed left-sided thoracentesis removing 1 L of clear yellow fluid.
Post-thoracentesis CXR showed subsegmental atelectasis at the left lung base. Fluid studies showed transitive fluid with fluid WBC 689 which was monocyte predominant. Fluid pH: 7.45. He was admitted to telemetry under the hospitalist and now
pulmonary service consulted for additional management/recommendations.
Chronic conditions [employer]: IgG gammopathy, ESRD on HD, CAD s/p coronary stents x 4, hypertension, history of Lyme disease, multiple myeloma on Darzalex, amyloidosis, chronic HFpEF, degenerative joint disease, restless leg syndrome, A-fib s/p
cardioversion, history of COPD, left knee torn meniscus, former tobacco smoker with 30+ pack years
Impression:
#Left-sided recurrent pleural effusion with history of multiple thoracentesis
#Chronic anemia (baseline Hb: 8.5-10.5g/dL)
#Metabolic alkalosis
#History of MM on Darzalex
#History of amyloidosis
#Chronic HFpEF/HFmrEF (last TTE from 11/02/2023 showed LVEF: 45-50% with normal RV size/function and moderate-severe LVH with mild global hypokinesis)
Plan:
- Patient feels much better after thoracentesis yesterday
- On exam he has bibasilar crackles which is worse on the left hemithorax
- CXR rechecked this AM already shows re-accumulation of pleural fluid, albeit there is still a small amount
- Considering that he has had 8 thoracentesis procedures this year, perhaps a Pleurx catheter would be the best route here going forward --> pt declined
- He remains on room air and is breathing comfortably currently
- s/p HD session yesterday
- Maintain SpO2 >90-94% with supplemental O2 as needed
- Continue lasix + aldactone; may need to raise these doses to see if it helps reduce pleural fluid re-accumulation
- Incentive spirometer encouraged
- Replete electrolytes with K>4, Mg>2
- Maintain euglycemia with goal BG >100 and <180
- prn nebulized bronchodilators - not currently bronchospastic
- DVT ppx: HSQ
Patient doing fair for discharge home today. No additional pulmonary recommendations at this time. Pulmonary service will now sign off. Thank you for allowing us to be involved in the care of this patient. Please reconsult if there are any
additional questions/concerns, or if patient's respiratory status deteriorates. Outpatient follow-up was recently attempted however he was unable to make it to the appointment. Will continue to arrange for outpatient follow-up.
Data:
CXR 01/22/2024 (compared to CXR from 01/11/2024): Moderate new left-sided pleural effusion
CXR 01/24/2024: Increased small left pleural effusion.
Total time spent today was 38 minutes for this encounter. Time includes reviewing laboratory test/imaging results, reviewing pertinent medical records, obtaining and reviewing medical history, performing an appropriate exam, ordering medications,
tests and procedures. Time also includes documentation of this encounter, coordinating patient care and communicating with other healthcare professionals. Total time does not include separately billed tests performed on this date of service.
Subjective Data
-
Date of Service:
Date of Service: January 24, 2024
Chief Complaint: Pulmonary Follow Up
Subjective:
Patient seen and evaluated today at bedside. Afebrile overnight. CXR done this morning shows slightly worsened size of left pleural effusion. He denies chest pain, GARCIA, abdominal pain, nausea, fevers or chills. He says his shortness of breath is
much better and is eager to go home.
Review of Systems
General: Other (Negative unless mentioned above)
Objective Data
Data Reviewed
Vital Signs / I&O / Oxygen:
Vital Signs
Temp Pulse Resp BP Pulse Ox
98.9 F 70 18 116/70 96
01/24/24 07:00 01/24/24 07:35 01/24/24 07:00 01/24/24 07:40 01/24/24 07:00
Intake and Output
01/23/24 01/24/24 01/25/24
06:59 06:59 06:59
Intake Total 240 / 240 720 / 720
Balance 240 / 240 720 / 720
SaO2 96
Physical Exam
General: Respiratory Distress (negative), Comfortable, Chills (negative) and Sweats (negative)
HEENT: Normocephalic, Anicteric and Moist Mucous Membranes
Cardiovascular: S1-S2, Murmur (RONIT at LUSB) and Peripheral Edema (negative)
Respiratory: Wheeze (negative), Crackles (Bibasilar), Rhonchi (negative) and Non-Labored Respirations
GI: Soft, Non Distended, Non Tender and Normal Bowel Sounds
Neurology: Awake, Alert and Tremors (negative)
Skin: Warm, Dry, Cyanosis (negative) and Jaundice (negative)
Labs/Micro/Reports
Lab Data
01/24/24 04:49
01/24/24 04:49
Microbiology
01/22/24 18:32 Nose MRSA Screen - Final
No Methicillin Resistant Staphylococcus aureus isolated.
[2024-01-24 11:00] VITALS: BP 100/47
--- NOTE | 2024-01-24 11:42 | W.PN.NEPH.PH ---
Today's Communication / Plan
-
HD tomorrow
Assessment/Plan
-
Impression:
End-stage renal disease Sunday [place] unit
hypotension
Recurrent left pleural effusion, s/p multiple thoracentesis
Anemia
Coronary artery disease with multiple stents
Atrial fibrillation
Heart failure reduced ejection fraction
Left IJ tunneled hemodialysis cath
AL amyloidosis/multiple myeloma
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
Plan:
HD tomorrow
Continue Lasix twice daily
Could consider switching hydralazine/isosorbide to low-dose lisinopril given hypotension
Midodrine predialysis
dc planning
-
-
Date of Service: January 24, 2024
CC / HPI / ROS
-
Chief Complaint:
ESRD
History of Present Illness:
tolerated HD yesterday
no SOB after thoracentesis
BP stable
Review of Systems:
no CP/SOB
Labs
-
Labs:
WBC 4.1 10^3/uL (4.8-10.8) L 01/24/24 04:49
RBC 3.54 10^6/uL (4.70-6.10) L 01/24/24 04:49
Hgb 9.7 g/dL (13.0-18.0) L 01/24/24 04:49
Hct 31.1 % (39.0-52.0) L 01/24/24 04:49
Plt Count 210 10^3/uL (130-400) D 01/24/24 04:49
Sodium 138 mmol/L (135-145) 01/24/24 04:49
Potassium 4.3 mmol/L (3.5-5.1) 01/24/24 04:49
Chloride 101 mmol/L (98-107) 01/24/24 04:49
Carbon Dioxide 30 mmol/L (22-30) 01/24/24 04:49
BUN 20 mg/dl (9-20) 01/24/24 04:49
Creatinine 2.3 mg/dL (0.7-1.3) H 01/24/24 04:49
eGFR 29.07 01/24/24 04:49
Glucose 72 mg/dl (70-99) 01/24/24 04:49
Calcium 8.5 mg/dl (8.4-10.2) 01/24/24 04:49
Albumin 3.3 g/dl (3.5-5.0) L 01/22/24 12:26
Physical Exam
-
Vital Signs:
Vital Signs
Temp Pulse Resp BP Pulse Ox
98.9 F 70 18 116/70 96
01/24/24 07:00 01/24/24 07:35 01/24/24 07:00 01/24/24 07:40 01/24/24 07:00
Cardiovascular:: Regular rate and rhythm
Respiratory:: Bilateral: Coarse
Lung Excursion:: Normal
Abdomen:: Nontender and Soft
Bowel Sounds:: Normal
Extremity Edema:: None: Bilateral:
--- NOTE | 2024-01-24 11:48 | CM ---
Patient seen bedside, for discharge today. Denies needs upon discharge to CM. Patient reports he will transport self home. CM will continue to follow for all discharge planning needs.
Plan; home, continue outpatient HD [place], [place]
--- NOTE | 2024-01-24 12:40 | W.DCSUMMARY ---
Documented by User: Louie Montgomery MD, Resident 01/24/24 14:21
Discharge Summary
Discharge Data
Date of Admission: 01/22/24
Date of Discharge: 01/24/24
-
Pending Results: No
Hospital Course
Primary discharge diagnosis
* Recurrent left pleural effusions
Secondary discharge diagnoses
- End-stage renal disease
- Multiple myeloma
- Light chain amyloidosis
- Chronic heart failure with reduced ejection fraction
- Paroxysmal atrial fibrillation
- Essential hypertension
- Atherosclerotic cardiovascular disease
- Hyperlipidemia
- Anemia of chronic and renal disease
- Peripheral neuropathy, secondary to chemotherapy
- Depression
Hospital course
Jace Shore, age 73, came to the hospital with worsening shortness of breath for the past few days on 01-22-24. 1L of clear yellow pleural fluid was drained with thoracentesis and he was admitted for observation. His medical history is notable
for recurrent pleural effusions for which he has had several hospital visits this year. Pulmonology was consulted and discussed pleural catheter-based drainage; the patient preferred to defer this in lieu of his upcoming cardiothoracic surgery
consultation to discuss pleurodesis. He got hemodialyzed for his scheduled hemodialysis on 01-23-24. A repeat chest x-ray showed small progression of effusion on 01-24-24. The patient was asymptomatic and hemodynamically stable with normal lab work
and vitals on the day of discharge. Discussed getting a repeat chest x-ray in 2-3 weeks, and sooner if the shortness of breath comes on earlier. Follow-up with primary in less than 1 week, cardiothoracic surgery on 02-05-24, and pulmonology in 3-4
weeks.
Discharge Plan
-
Patient Disposition: Home (Routine Discharge)
Discharge Diagnosis/Procedures: Recurrent left pleural effusions
Condition: Good
Diet: As tolerated
Activity: No restrictions
Driving Restrictions: As prior to admission
Bathing Restrictions: None
Others Tests: Chest x-ray in 3 days
Instructions: Pleural effusion - Discharge instructions
Referrals:
Lance Cortes MD [Active] - in three to four weeks (full PFTs on day of office visit)
Bang Lambert III, DO [Family Provider] -
Prescriptions:
Continued
lamotrigine 100 MG tablet
100 mg PO BID
ezetimibe 10 MG tablet
10 mg PO HS
rosuvastatin 10 MG tablet
10 mg PO DAILY
aspirin 81 MG tablet,delayed release (DR/EC)
81 mg PO DAILY
allopurinol 100 MG tablet
100 mg PO DAILY
montelukast [Singulair] 10 mg Tablet
10 mg PO UD
Rx Instructions:
take the night before, night of, and night after Darzalex infusion.
gabapentin [Neurontin] 100 mg Capsule
100 mg PO TID
Darzalex 20 mg/mL Solution
1,800 mg IV QMONTH
Venclexta 100 mg Tablet
200 mg PO DAILY
risperidone 0.25 mg Tablet
0.25 mg PO HS
hydralazine 10 mg Tablet
10 mg PO TID Qty: 90 0RF
isosorbide mononitrate 30 mg Tablet Extended Release 24 Hr
30 mg PO DAILY Qty: 0 0RF
amiodarone 200 mg Tablet
100 mg PO SUTUTHSA@0800
benzonatate 100 mg Capsule
100 mg PO TIDPRN PRN (Reason: cough) Qty: 10 0RF
acyclovir 200 mg Capsule
200 mg PO BID Qty: 10 0RF
spironolactone 50 mg Tablet
50 mg PO DAILY Qty: 30 0RF
Patient Comments:
01/22/2024: Pt hasn't taken since discharge, scared it will lower his blood pressure more.
furosemide 80 mg tablet
80 mg PO BID Qty: 60 0RF
Discharge Orders:
Discharge Patient (As Directed); Ordered 01/24/24
Ordered By: Louie Montgomery
Discharge Date and Time
Print Language: CHADIAN

Documented by User: Ibrahima Jeffrey MD 01/24/24 14:26
Discharge Summary
Discharge Data
Date of Admission: 01/22/24
Date of Discharge: 01/24/24
Discharge Plan
-
Patient Disposition: Home (Routine Discharge)
Discharge Diagnosis/Procedures: Recurrent left pleural effusions
Condition: Good
Diet: As tolerated
Activity: No restrictions
Driving Restrictions: As prior to admission
Bathing Restrictions: None
Others Tests: Chest x-ray in 3 days
Instructions: Pleural effusion - Discharge instructions
Referrals:
Lance Cortes MD [Active] - in three to four weeks (full PFTs on day of office visit)
Bang Lambert III, DO [Family Provider] -
Prescriptions:
Continued
lamotrigine 100 MG tablet
100 mg PO BID
ezetimibe 10 MG tablet
10 mg PO HS
rosuvastatin 10 MG tablet
10 mg PO DAILY
aspirin 81 MG tablet,delayed release (DR/EC)
81 mg PO DAILY
allopurinol 100 MG tablet
100 mg PO DAILY
montelukast [Singulair] 10 mg Tablet
10 mg PO UD
Rx Instructions:
take the night before, night of, and night after Darzalex infusion.
gabapentin [Neurontin] 100 mg Capsule
100 mg PO TID
Darzalex 20 mg/mL Solution
1,800 mg IV QMONTH
Venclexta 100 mg Tablet
200 mg PO DAILY
risperidone 0.25 mg Tablet
0.25 mg PO HS
hydralazine 10 mg Tablet
10 mg PO TID Qty: 90 0RF
isosorbide mononitrate 30 mg Tablet Extended Release 24 Hr
30 mg PO DAILY Qty: 0 0RF
amiodarone 200 mg Tablet
100 mg PO SUTUTHSA@0800
benzonatate 100 mg Capsule
100 mg PO TIDPRN PRN (Reason: cough) Qty: 10 0RF
acyclovir 200 mg Capsule
200 mg PO BID Qty: 10 0RF
spironolactone 50 mg Tablet
50 mg PO DAILY Qty: 30 0RF
Patient Comments:
01/22/2024: Pt hasn't taken since discharge, scared it will lower his blood pressure more.
furosemide 80 mg tablet
80 mg PO BID Qty: 60 0RF
Discharge Orders:
Discharge Patient (As Directed); Ordered 01/24/24
Ordered By: Louie Montgomery
Discharge Date and Time
Print Language: CHADIAN
== END 2024-01-24 14:25 | disposition home or self-care (01) ==
LOC: 4 WEST ACU 17:05
PROVIDERS: Nurse Practitioner Family; Student in an Organized Health Care Education/Training Program; ADMITTING PHYSICIAN Hospitalist; ATTENDING PHYSICIAN Hospitalist; CONSULT PHYSICIAN Internal Medicine Critical Care Medicine; EMERGENCY PHYSICIAN Emergency Medicine; FAMILY PHYSICIAN Internal Medicine; OTHER PHYSICIAN Specialist
DX: J90 Pleural effusion, not elsewhere classified (principal); N18.6 End stage renal disease; I13.2 Hypertensive heart and chronic kidney disease with heart failure and with stage 5 chronic kidney disease, or end stage renal disease; I95.9 Hypotension, unspecified; I50.42 Chronic combined systolic (congestive) and diastolic (congestive) heart failure; I25.10 Atherosclerotic heart disease of native coronary artery without angina pectoris; E78.00 Pure hypercholesterolemia, unspecified; I48.0 Paroxysmal atrial fibrillation; C90.00 Multiple myeloma not having achieved remission; F32.A Depression, unspecified; E85.81 Light chain (AL) amyloidosis; I44.4 Left anterior fascicular block; R06.02 Shortness of breath; M10.9 Gout, unspecified; M17.12 Unilateral primary osteoarthritis, left knee; J44.9 Chronic obstructive pulmonary disease, unspecified; E87.3 Alkalosis; J98.11 Atelectasis; G25.81 Restless legs syndrome; D63.8 Anemia in other chronic diseases classified elsewhere; G62.0 Drug-induced polyneuropathy; I25.2 Old myocardial infarction; Z88.1 Allergy status to other antibiotic agents; Z99.2 Dependence on renal dialysis; Z88.0 Allergy status to penicillin; Z88.8 Allergy status to other drugs, medicaments and biological substances; Z95.5 Presence of coronary angioplasty implant and graft; Z96.653 Presence of artificial knee joint, bilateral; Z87.891 Personal history of nicotine dependence; Z87.442 Personal history of urinary calculi; Z60.2 Problems related to living alone; Z86.19 Personal history of other infectious and parasitic diseases; Z82.49 Family history of ischemic heart disease and other diseases of the circulatory system; Z95.0 Presence of cardiac pacemaker
CPT/HCPCS: 32555; 71045; 71046; 80048; 80053; 83615; 83986; 84157; 84478; 85025; 85027; 87070; 89051; 93005; 99285; G0257; P9047; Q5106

== ENCOUNTER 2024-02-11 23:12 | Observation (INO) | payer MEDICARE, SELFPAY ==
[2024-02-11] VITALS (7 sets, daily range): BP systolic 95–120; BP diastolic 48–60; BMI 20.3
--- NOTE | 2024-02-11 20:12 | ED.GENMED ---
History of Present Illness
General
Chief Complaint: Breathing Problem
Source: patient
Exam Limitations: none
Time Seen by Provider: 02/11/24 19:42
History of Present Illness
History of Present Illness:
This is a 73 year old male that comes in with c/o SOB and weakness. Patient is a dialysis patient and had dialysis today. States that he feels that he can only walk about 10 feet and he feels like he is going to fall over. State that he is SOB and
weak. States that he has a history of getting a pleural effusion on the left and is concerned that this is back. Denies any fever, chills, chest pain, abd pain, nausea, vomiting, diarrhea, headache, dizziness. Patient states that he voids a couple
times daily but very little
Past History
Past History
ED Past Medical History: Arrthythmia (Atrial fib), CAD, Cancer (multiple myeloma, Skin CA), CHF, HTN, Hypercholesterolemia, [place], Renal failure (Dialysis M-W-F), Psychiatric (Depression) and Other ( amyloidosis, Syncope, Renal calculus, [place], Sleep
apnea uses CPAP)
ED Past Surgical History: Cardiac (Stents X 4), Orthopedic (Cancer removed from left shoulder, Left knee meniscus, Right rotator cuff, , Bilateral knee replacement) and Other (Hernia repair, left arm fistula)
Social History
Tobacco: Former smoker
Alcohol: Occasional
Drug: None
Personal:
Living: alone
Employment: Not employed
Review of Systems
Review of Systems
All Other Systems: ROS reviewed and negative except as documented in HPI and ROS
Constitutional: Reports no symptoms; Denies fever or chills
EENT: Reports no symptoms
Respiratory: Reports trouble breathing; Denies cough
Cardiac: Denies chest pain
ABD/GI: Reports no symptoms; Denies abdominal pain, nausea, vomiting or diarrhea
: Reports no symptoms
Musculoskeletal: Reports no symptoms
Skin: Reports no symptoms
Neurological: Reports weakness; Denies dizzy or headache
Psychiatric: Reports no symptoms
Phy Exam
General Physical Exam
General Presentation: no apparent distress
General age: appears stated age
General Skin: warm and dry
General Habitus: elderly
General Mental: alert
General Hydration: appears well hydrated
ENT Exam
ENT Exam: TM's normal, pharynx normal and neck supple
Eye Exam
Eye Exam: EOMI
Cardiovascular Exam
Cardiovascular Exam: no edema, normal peripheral pulses and irregularly irregular
Pulmonary Exam
Pulmonary Exam: no respiratory distress, chest non tender, no rhonchi, no wheezing, no cough and other (Very fine crackles right base)
Gastrointestinal Exam
Gastrointestinal Exam: normal bowel sounds, non tender, soft, no organomegaly, no pulsatile mass and non distended
Musculoskeletal Exam
Musculoskeletal Exam: full ROM and no edema
Skin Exam
Skin Exam: normal color, warm/dry, no rash, no petechia and other (right upper chest port, Left Upper chest dialysis catheter. Left lower arm fistula with good bruits and thrill)
Psychiatric Exam
Psychiatric Exam: normal mood/affect
Scores
Heart Failure Risk
Heart Failure Risk Score: Not Applicable
Course
Orders/Labs/Results
Orders:
Orders
02/11/24 18:40
Electrocardiogram (*1) Stat
Reason for Study: Fatigue / Weakness
EKG- Treatment ONCE
02/11/24 20:11
CR Chest - 2 Views Urgent
Comment:
Reason For Exam: SOB
02/11/24 20:34
Complete Blood Count/With Diff Urgent
Comprehensive Metabolic Panel Urgent
Troponin I Urgent
Abnormal Lab Results
02/11/24
20:34
WBC 4.7 L 10^3/uL
(4.8-10.8)
RBC 3.79 L 10^6/uL
(4.70-6.10)
Hgb 10.5 L g/dL
(13.0-18.0)
Hct 33.7 L %
(39.0-52.0)
MCHC 31.2 L g/dL
(33.0-37.0)
RDW 15.6 H %
(11.5-14.5)
Absolute Lymphs (auto) 0.4 L 10^3/uL
(1.2-3.4)
Absolute Monos (auto) 0.8 H 10^3/uL
(0.1-0.6)
Lymphocytes % 8.8 L %
(20.5-51.1)
Monocytes % 16.1 H %
(1.7-9.3)
Chloride 95 L mmol/L
(98-107)
Carbon Dioxide 31 H mmol/L
(22-30)
BUN 29 H mg/dl
(9-20)
Creatinine 2.5 H mg/dL
(0.7-1.3)
Glucose 103 H mg/dl
(70-99)
Troponin I 0.119 H* ng/ml
Total Protein 5.4 L g/dl
(6.3-8.2)
Albumin 3.2 L g/dl
(3.5-5.0)
02/11/24 20:34
02/11/24 20:34
H/H slightly low (consistent with prior labs), chloride low. chronic renal failure, Glucose slightly elevatged. Troponin 0.119 ( chronic elevation due to kidney function), Total protein slightly low Albumin slightly low.
Vital Signs
Initial and Last Documented VS:
Initial Vital Signs
Temp Pulse Resp BP Pulse Ox
98.0 F 82 18 108/60 93
02/11/24 18:34 02/11/24 18:34 02/11/24 18:34 02/11/24 18:34 02/11/24 18:34
Last Documented Vital Signs
Temp Pulse Resp BP Pulse Ox
98.0 F 58 19 109/51 98
02/11/24 18:34 02/11/24 21:00 02/11/24 20:45 02/11/24 21:00 02/11/24 21:02
MDM/Problems Addressed
Differential Diagnosis Includes:
Generalized weakness, PNA, Pleural effusion
MDM/Problems Addressed:
This is a 73 year old male that comes in with c/o weakness and SOB. States that he has a history of a pleural effusion on the left and he thinks this is back. States that he can only walk about 10 feet and he thinks he is going to fall over.
Will check labs, Chest x-ray
Back into see patient. Explained that his x-ray shows that his Pleural effusion has increased. Will admit patient with SOB due to increased pleural effusion. Hospitalist notified.
Chronic conditions affecting care: Kidney disease
Acute Exacerbation and/or Progression of Chronic Illness: Kidney disease
*Radiology
Radiology exam reviewed: radiology read reviewed (Chest-Slightly increased moderate left pleural effusion and adjacent compressive atelectasis. )
*Pulse Oximetry
Patient hypoxic: no
*EKG
Interpreted by ED Provider?: Yes
Heart Rate: 77
Rate: normal
Rhythm: a-fib and PVC's
[place]: left axis deviation
QRS Pattern: left vent hypertrophy
Ischemia: no ischemia
*[employer] Consultant Interpretation
Rate: normal
Heart Rate: 73
Rhythm: a-fib
*Critical Care Note
Total Time (30-74mins, 75-104mins- exclusive of procedures): Not Applicable
ED Attending Note
-
Portions of this chart may have been created with voice recognition software.� Occasional wrong word or��sound alike� substitutions may have occurred due to the inherent limitations of voice recognition software.
Discharge Plan
Departure
Patient Disposition: Admit
Date of Disposition: 02/11/24
Time of Disposition: 21:36
Admit to: Med/Surg
Presentation/result/management discussed w/ accepting MD/DO: Hospitalist
Patient with high blood pressure during this ER visit?: No
Condition: Good
Covid-19: Not Applicable
Discharge Problem:
Shortness of breath, Pleural effusion on left
Prescriptions:
No Action
lamotrigine 100 MG tablet
100 mg PO BID
ezetimibe 10 MG tablet
10 mg PO HS
rosuvastatin 10 MG tablet
10 mg PO DAILY
aspirin 81 MG tablet,delayed release (DR/EC)
81 mg PO DAILY
allopurinol 100 MG tablet
100 mg PO DAILY
montelukast [Singulair] 10 mg Tablet
10 mg PO UD
Rx Instructions:
take the night before, night of, and night after Darzalex infusion.
gabapentin [Neurontin] 100 mg Capsule
100 mg PO TID
Darzalex 20 mg/mL Solution
1,800 mg IV QMONTH
Venclexta 100 mg Tablet
200 mg PO DAILY
risperidone 0.25 mg Tablet
0.25 mg PO HS
hydralazine 10 mg Tablet
10 mg PO TID Qty: 90 0RF
isosorbide mononitrate 30 mg Tablet Extended Release 24 Hr
30 mg PO DAILY Qty: 0 0RF
amiodarone 200 mg Tablet
100 mg PO SUTUTHSA@0800
benzonatate 100 mg Capsule
100 mg PO TIDPRN PRN (Reason: cough) Qty: 10 0RF
acyclovir 200 mg Capsule
200 mg PO BID Qty: 10 0RF
spironolactone 50 mg Tablet
50 mg PO DAILY Qty: 30 0RF
Patient Comments:
01/22/2024: Pt hasn't taken since discharge, scared it will lower his blood pressure more.
furosemide 80 mg tablet
80 mg PO BID Qty: 60 0RF
Referrals:
Bang Lambert III, DO [Family Provider] -
Interventions
Interventions:
*Risk Screen - Suicide Last Done: 02/11/24 18:39
*General Assessment Last Done: 02/11/24 20:15
*Neglect/Abuse Screening Last Done: 02/11/24 18:39
ED- Fall Risk Assessment Last Done: 02/11/24 21:03
*ED COVID-19 Vaccine History Last Done: 02/11/24 20:15
ED- Cardiac Assessment Last Done: 02/11/24 21:02
ED- Pulmonary Assessment Last Done: 02/11/24 21:02
Discharge Date and Time
Print Language: ALGERIAN
[2024-02-11 20:41] LABS: % Basophils 1.1 % (0-2); % Eosinophils 0.4 % (0-6); % Lymphocytes 8.8 % (20.5-51.1); % Monocytes 16.1 % (1.7-9.3); % Neutrophils 73.6 % (42.2-75.2); Absolute Basophils 0.1 10^3/uL (0-0.2); Absolute Lymphocytes 0.4 10^3/uL (1.2-3.4); Absolute Monocytes 0.8 10^3/uL (0.1-0.6); Absolute Neutrophils 3.4 10^3/uL (1.4-6.5); Hematocrit 33.7 % (39.0-52.0); Hemoglobin 10.5 g/dL (13.0-18.0); Mean Corp Hgb Conc. 31.2 g/dL (33.0-37.0); Mean Corpuscular Hgb 27.7 pg (27.0-31.0); Mean Corpuscular Volume 88.9 fL (80.0-94.0); Mean Platelet Volume 9.8 fL (7.4-10.4); Nucleated Red Blood Cells % 0 % (-); Platelet Count 201 10^3/uL (130-400); Red Blood Cell Count 3.79 10^6/uL (4.70-6.10); Red Cell Dist. Width 15.6 % (11.5-14.5); White Blood Cell Count 4.7 10^3/uL (4.8-10.8)
[2024-02-11 21:08] LABS: Troponin I 0.119 ng/ml
[2024-02-11 21:21] LABS: AST (SGOT) 19 U/L (17-59); Albumin 3.2 g/dl (3.5-5.0); Blood Urea Nitrogen 29 mg/dl (9-20); Carbon Dioxide 31 mmol/L (22-30); Chloride 95 mmol/L (98-107); Estimated Creatinine Clearance 24 ml/min; Glucose 103 mg/dl (70-99); Total Bilirubin 0.4 mg/dl (0.2-1.3); Total Protein 5.4 g/dl (6.3-8.2)
[2024-02-11 21:30] LABS: ALT (SGPT) < 10 U/L (0-50); Alkaline Phosphatase 107 U/L (38-126); Calcium 8.3 mg/dl (8.4-10.2); Potassium 3.6 mmol/L (3.5-5.1); Sodium 138 mmol/L (135-145)
--- NOTE | 2024-02-11 22:36 | HPS.HSE ---
Family Physician
-
Family Physician: Bang Lambert
Chief Complaint
-
Weakness and shortness of breath.
History of Present Illness
This is an 73-year-old male was past medical history of end-stage renal disease on hemodialysis Sunday, recurrent pleural effusion, CHF, atrial fibrillation on aspirin presenting to the emergency department for increased shortness
of breath. He has presented multiple times in a similar way. Today he reports that after dialysis he has been unable to ambulate for more than 10 feet without shortness of breath and needing to stop to catch his breath. He specifically denies any
chest pain. Denies any cough fevers or chills. Patient denies any weight gain or lower extremity swelling. He reports that usually the symptoms are caused due to recurrence of his pleural effusion. He denies palpitations. He states his
amiodarone has been discontinued. Hydralazine has also been discontinued due to low blood pressures. He makes minimal urine and responds minimally to diuresis.
During the last admission he had plans to follow-up with cardiothoracic surgeon on February 20 for possible pleurodesis. He is willing to get a repeat thoracentesis prior to this procedure.
In the ED today he has history of blood pressure of 108/54, pulse was 62 and afebrile, he was afebrile and he is satting 98% on room air. ECG with A-fib rate of 77 no acute ischemic changes. Chest x-ray shows moderate, left pleural effusion with
compressive atelectasis.
Medical History
Past Medical History
Past Medical History: Reports Arrhythmia (Atrial fibrillation), Asthma, CAD, Cancer (Multiple myeloma,) and Renal Failure (ESRD on hemodialysis Sunday)
Past Surgical History: Reports Other
Social History
Tobacco: Non-smoker
Alcohol: None
Drug: None
Living: Alone
Family History
Family History: Not pertinent
Allergies / Home Medications
Allergies reflects when Allergies were last updated in [facility].
Home Medications with original date entered in [employer]
Allergy/Medication List:
Allergies
Allergy/AdvReac Type Severity Reaction Status Date / Time
atorvastatin Allergy MUSCLE Verified 02/11/24 18:39
CRAMPS
Cephalosporins Allergy kidney Verified 02/11/24 18:39
disease
coconut Allergy vomits Verified 02/11/24 18:39
penicillin V Allergy Vomiting Verified 02/11/24 18:39
pregabalin [From Lyrica] Allergy Tongue Verified 02/11/24 18:39
Swelling
simvastatin Allergy muscle Verified 02/11/24 18:39
cramps
Home Medications
lamotrigine 100 mg tablet 100 mg PO BID Neurological Condition 07/24/19
ezetimibe 10 mg tablet 10 mg PO HS High cholesterol 08/26/19
rosuvastatin 10 mg tablet 10 mg PO DAILY High cholesterol 08/26/19
aspirin 81 mg tablet,delayed release 81 mg PO DAILY Blood clot prevention/tx 08/27/19
allopurinol 100 mg tablet 100 mg PO DAILY Gout 06/15/20
gabapentin 100 mg capsule (Neurontin) 100 mg PO TID Pain 09/26/21
montelukast 10 mg tablet (Singulair) 10 mg PO UD bone pain prevention 09/26/21
daratumumab 20 mg/mL intravenous solution (Darzalex) 1,800 mg IV QMONTH Cancer 04/20/23
venetoclax 100 mg tablet (Venclexta) 200 mg PO DAILY Cancer 04/20/23
risperidone 0.25 mg tablet 0.25 mg PO HS Mental Health/Anxiety 08/06/23
isosorbide mononitrate 30 mg tablet,extended release 24 hr 30 mg PO DAILY HEART CONDITION #0 tabs 08/21/23
acyclovir 200 mg capsule 200 mg PO BID #10 caps 01/02/24
furosemide 80 mg tablet 80 mg PO Q48H@0800 02/11/24
furosemide 80 mg tablet 80 mg PO Q48H@0800,1800 02/11/24
Review of Systems
-
History Source: Patient
Constitutional: Reports Fatigue
EENT: Reports No Symptoms
Respiratory: Reports Trouble Breathing
Cardiac: Reports No Symptoms
Abdomen/GI: Reports No Symptoms
: Reports No Symptoms
Musculoskeletal: Reports No Symptoms
Skin: Reports No Symptoms
Neurological: Reports No Symptoms
Endocrine: Reports No Symptoms
Hematologic/Lymphatic: Reports No Symptoms
Psych: Reports No Symptoms
Physical Exam
Vital Signs
Vital Signs
Temp Pulse Resp BP Pulse Ox
98.0 F 62 15 108/54 98
02/11/24 18:34 02/11/24 22:00 02/11/24 21:30 02/11/24 22:00 02/11/24 22:00
Physical Exam
General: Well Developed, Well Nourished, No Apparent Distress and Comfortable
HEENT: NormoCephalic, Anicteric, Moist mucous membranes and Atraumatic
Respiratory: Clear, Non Labored Respirations and Decreased Breath Sounds
Cardiac: S1/S2 and Irregular Rhythm
Breast: Deferred by me
GI: Soft, Non Tender, Non Distended and Normal Bowel Sounds
Rectal: Deferred by Provider
Genito-urinary: Deferred by me
Musculoskeletal: No Clubbing, No Cyanosis and No Edema
Skin: Warm
Neuro: AO x 3
Hematologic/Lymphatic: No Lymphadenopathy
Psych: Calm
Laboratory Results
-
02/11/24 20:34
02/11/24 20:34
Laboratory Results
Total Bilirubin 0.4 mg/dl (0.2-1.3) 02/11/24 20:34
AST 19 U/L (17-59) 02/11/24 20:34
ALT < 10 U/L (0-50) 02/11/24 20:34
Alkaline Phosphatase 107 U/L (38-126) 02/11/24 20:34
Troponin I 0.119 ng/ml H* 02/11/24 20:34
Data Reviewed
-
Diagnostic Radiology: Image Personally Visualized and interpreted and Report Reviewed by me
Medical Tests (Nuc Med, Echo, EKG etc): Image Personally Visualized and interpreted
Lab Data: Labs Reviewed by me
Old Records: Reviewed
Impression/Plan
-
Patient with recurrent pleural effusion was recently admitted for shortness of breath and pleural effusions found to have recurrent left sided pleural effusion with improvement in symptoms. Comes in again for SOB. He is well appearing,
hemodynamically stable. No oxygen requirment. Has moderate pleural effusion, slightly more than prior. No pulmonary edema. No chest pain. Chronic trop elevation unchanged.
PLAN:
1. Pleural effusion - No respiratory distress and does not require supplemental oxygen. Recurrent effusions thought to be cardiogenic. He is pending CT surg eval for pleuodesy.
- admit to med/surg
- IR consult for non-emergent thoracentesis
2. ESRD - Patient with functioning left sided TDC after catheter exchange. HD today sunday. No indication for acute treatment
- renal diet
- fluid restriction
3. HF w/ reduced EF, cardiac amyloidosis - No indication for acute exacerbation
- fluid restriction as above
- continue imdur
4. MM
- continue patients Venclexta
5. AFIB
- off apixaban, on aspirin
- off amio due to hypotension
DVT - PPX heparin sq
Code status - full code
[2024-02-12] VITALS (15 sets, daily range): BP systolic 65–132; BP diastolic 46–75; BMI 20.3
[2024-02-12] MEDS: NEURONTIN 100 MG PO ×2 (00:33→08:37)
[2024-02-12 06:35] LABS: Blood Urea Nitrogen 34 mg/dl (9-20); Calcium 8.2 mg/dl (8.4-10.2); Carbon Dioxide 29 mmol/L (22-30); Chloride 98 mmol/L (98-107); Estimated Creatinine Clearance 22 ml/min; Glucose 89 mg/dl (70-99); Potassium 3.9 mmol/L (3.5-5.1); Sodium 138 mmol/L (135-145); eGFR 23.98
[2024-02-12] MEDS: LASIX 80 MG PO (08:36)
[2024-02-12] MEDS: CRESTOR 10 MG PO (08:36)
[2024-02-12] MEDS: ZYLOPRIM 100 MG PO (08:37)
[2024-02-12] MEDS: LAMICTAL 100 MG PO (08:37)
[2024-02-12] MEDS: ASPIR LOW (ENTERIC COATED) 81 MG PO (08:37)
[2024-02-12] MEDS: HEPARIN 5000 UNITS SC (08:37)
--- NOTE | 2024-02-12 08:48 | W.PN.HOSP.TC ---
Today's Communication/Plan
-
Thoracentesis
Discharge
Assessment / Plan
Assessment / Plan
Gen-AAOx3, NAD
HEENT-NC, AT, anicteric, clear oral mm
Neck-supple
CV-reg, no M, +S1/S2
Lungs-clear B/L
Abd-soft, NT, ND
Ext-no edema
Musculoskeletal-no cyanosis, clubbing
Skin-warm and dry
Neuro-grossly non-focal
Psych-calm, cooperative
Recurrent left pleural effusion -transudative. Last thoracentesis January 21, 1 L removed. Consult IR for thoracentesis today.
Patient has appointment to see CT surgery on February 20, consideration of pleurodesis.
ESRD -requiring dialysis Sunday. Last dialyzed yesterday.
Multiple myeloma/AL amyloidosis
CAD -history of multiple stents.
Chronic heart failure reduced EF
Chronic troponin elevation -likely due to ESRD. Asymptomatic.
Chronic anemia -hemoglobin at baseline.
Asthma, mild intermittent -stable.
Paroxysmal atrial fibrillation -off chronic anticoagulation due to retroperitoneal hemorrhage.
Full code
Dispo -likely discharge today after thoracentesis. Follow-up as outpatient.
32 minutes spent in discharge process.
Anticipated Discharge: Today
Subjective/Interval History
-
Date of Service: February 12, 2024
Patient seen and examined. Denies chest pain or shortness of breath.
Objective Data
-
Labs:
Laboratory Results
02/11/24 02/12/24
20:34 05:54
Sodium 138 138
Potassium 3.6 3.9
Chloride 95 L 98
Carbon Dioxide 31 H 29
BUN 29 H 34 H
Creatinine 2.5 H 2.7 H
Glucose 103 H 89
Calcium 8.3 L 8.2 L
Total Bilirubin 0.4
AST 19
ALT < 10
Alkaline Phosphatase 107
Vital Signs:
Vital Signs
Temp Pulse Resp BP Pulse Ox
98.1 F 64 18 114/62 99
02/12/24 00:09 02/12/24 08:36 02/12/24 00:09 02/12/24 08:36 02/12/24 07:15
I&O
02/11/24 02/12/24 02/13/24
06:59 06:59 06:59
Intake Total 240 / 240
Output Total 0 / 0
Balance 240 / 240
Review of Systems
-
History Source: Patient
All other systems: Reviewed and negative
--- NOTE | 2024-02-12 08:56 | W.DS.TRANS ---
DC Summary - Jordan Man
-
Discharge Instructions:
Sleep Apnea Risk Low
Discharge Diagnosis/Procedures Recurrent left pleural effusion
Diet Other diet
Additional Diets 2 Gram potassium
Activity As tolerated
Driving Restrictions As prior to admission
Bathing Restrictions None
Instructions:
Stand-Alone Forms:
Changes to Home Medications: No
Discharge Medications:
DC Medications w/original date entered in [employer]
lamotrigine 100 mg tablet 100 mg PO BID Neurological Condition 07/24/19
ezetimibe 10 mg tablet 10 mg PO HS High cholesterol 08/26/19
rosuvastatin 10 mg tablet 10 mg PO DAILY High cholesterol 08/26/19
aspirin 81 mg tablet,delayed release 81 mg PO DAILY Blood clot prevention/tx 08/27/19
allopurinol 100 mg tablet 100 mg PO DAILY Gout 06/15/20
gabapentin 100 mg capsule (Neurontin) 100 mg PO TID Pain 09/26/21
montelukast 10 mg tablet (Singulair) 10 mg PO UD bone pain prevention 09/26/21
daratumumab 20 mg/mL intravenous solution (Darzalex) 1,800 mg IV QMONTH Cancer 04/20/23
venetoclax 100 mg tablet (Venclexta) 200 mg PO DAILY Cancer 04/20/23
risperidone 0.25 mg tablet 0.25 mg PO HS Mental Health/Anxiety 08/06/23
isosorbide mononitrate 30 mg tablet,extended release 24 hr 30 mg PO DAILY HEART CONDITION #0 tabs 08/21/23
acyclovir 200 mg capsule 200 mg PO BID #10 caps 01/02/24
furosemide 80 mg tablet 80 mg PO Q48H@0800 02/11/24
furosemide 80 mg tablet 80 mg PO Q48H@0800,1800 02/11/24
Home Medication Changes
Pending Results: No
[2024-02-12] MEDS: ZOVIRAX 200 MG PO (09:58)
[2024-02-12] MEDS: IMDUR (EXTENDED RELEASE) 30 MG PO (09:59)
--- NOTE | 2024-02-12 10:17 | PTCARENOTE ---
VSS. Sent to IR for thoracentesis at this time.
--- NOTE | 2024-02-12 10:18 | CM ---
CM reviewed medical records. Patient is pending procedure and then plan for discharge. CM will remain available.
--- NOTE | 2024-02-12 12:23 | CM ---
CM met with patient in room. Patient confirmed demographics. Patient lives independently. Patient's daughter is available for transportation home. Patient uses the [facility] for pharmacy services.
PLAN: Home no needs.
== END 2024-02-12 13:50 | disposition home or self-care (01) ==
LOC: ED 23:12
PROVIDERS: Clinical Nurse Specialist Family Health; Student in an Organized Health Care Education/Training Program; ADMITTING PHYSICIAN Internal Medicine; ATTENDING PHYSICIAN Hospitalist; EMERGENCY PHYSICIAN Emergency Medicine; FAMILY PHYSICIAN Internal Medicine
DX: J90 Pleural effusion, not elsewhere classified (principal); R06.02 Shortness of breath; R53.1 Weakness; N18.6 End stage renal disease; I13.2 Hypertensive heart and chronic kidney disease with heart failure and with stage 5 chronic kidney disease, or end stage renal disease; J98.11 Atelectasis; I50.22 Chronic systolic (congestive) heart failure; I48.0 Paroxysmal atrial fibrillation; C90.00 Multiple myeloma not having achieved remission; I44.4 Left anterior fascicular block; R53.83 Other fatigue; D64.9 Anemia, unspecified; J45.20 Mild intermittent asthma, uncomplicated; G47.30 Sleep apnea, unspecified; I25.10 Atherosclerotic heart disease of native coronary artery without angina pectoris; E78.00 Pure hypercholesterolemia, unspecified; I25.2 Old myocardial infarction; E85.81 Light chain (AL) amyloidosis; F32.A Depression, unspecified; Z99.2 Dependence on renal dialysis; Z87.891 Personal history of nicotine dependence; Z95.5 Presence of coronary angioplasty implant and graft; Z96.653 Presence of artificial knee joint, bilateral; Z87.442 Personal history of urinary calculi; Z79.01 Long term (current) use of anticoagulants; Z79.624 Long term (current) use of inhibitors of nucleotide synthesis; Z79.82 Long term (current) use of aspirin; Z88.1 Allergy status to other antibiotic agents; Z88.0 Allergy status to penicillin; Z88.8 Allergy status to other drugs, medicaments and biological substances; Z91.018 Allergy to other foods; Z60.2 Problems related to living alone
CPT/HCPCS: 32555; 71045; 71046; 80048; 80053; 84484; 85025; 93005; 99285; G0378

== ENCOUNTER 2024-04-11 04:17 | Emergency (ER) | payer MEDICARE, SELFPAY ==
[2024-04-11 04:19] VITALS: BP 97/65
[2024-04-11 04:43] VITALS: BMI 19.4
--- NOTE | 2024-04-11 04:58 | ED.GENMED ---
History of Present Illness
General
Chief Complaint: Breathing Problem
Source: patient
Exam Limitations: none
Time Seen by Provider: 04/11/24 04:25
Nursing documentation reviewed up to this point in time: agreed with
History of Present Illness
History of Present Illness:
Patient with history of end-stage renal disease on hemodialysis (Sunday, Sunday, Sunday), presents to ED secondary to worsening shortness of breath, especially with any exertion over the past 2 to 3 days. In addition, patient did not receive
full dialysis session on Sunday, secondary to malfunctioning left forearm dialysis access, which now has been told is okay to be used. Denies fever or chills. Denies chest pain. Denies leg pain or swelling. Denies trauma. Patient states that
he has had similar symptoms in the past, requiring thoracentesis, secondary to fluid accumulation in his lung.
Past History
Past History
ED Past Medical History: Arrthythmia (Atrial fib), CAD, Cancer (multiple myeloma, Skin CA), CHF, HTN, Hypercholesterolemia, [place], Renal failure (Dialysis M-W-F), Psychiatric (Depression) and Other ( amyloidosis, Syncope, Renal calculus, Lymes, Sleep
apnea uses CPAP)
ED Past Surgical History: Cardiac (Stents X 4), Orthopedic (Cancer removed from left shoulder, Left knee meniscus, Right rotator cuff, , Bilateral knee replacement) and Other (Hernia repair, left arm fistula)
Social History
Tobacco: Former smoker
Alcohol: Occasional
Drug: None
Personal:
Living: alone
Employment: Not employed
Review of Systems
Review of Systems
Allergies reviewed?: Yes
All Other Systems: ROS reviewed and negative except as documented in HPI and ROS
Constitutional: Reports no symptoms
EENT: Reports no symptoms
Respiratory: Reports trouble breathing
Cardiac: Reports no symptoms; Denies chest pain
ABD/GI: Reports no symptoms
Musculoskeletal: Reports no symptoms
Skin: Reports no symptoms
Neurological: Reports no symptoms
Phy Exam
Physical Exam
Physical Exam:
Physical Exam
General: mild distress, not acutely ill. afebrile. weak appearing.
Head: nc/at. eomi
Neck: supple. normal range of motion
Heart: s1/s2 regular rate and rhythm, no murmur. equal radial pulses.
Lungs: no acute respiratory distress. diminished breath sounds bilaterally
Abdomen: normal bowel sounds. not tender.
Neuro: alert and oriented x 3. no focal neurological deficits
Skin: no rash
Psychiatric: well kept. interactive and cooperative
Extremities: no edema. no calf tenderness.
Scores
Heart Failure Risk
Heart Failure Risk Score: Not Applicable
Course
Orders/Labs/Results
Orders:
Orders
04/11/24 04:18
Electrocardiogram (*1) Urgent
Reason for Study: Other
Other Reason for Exam: Respiratory Distress
Cardiac Monitoring- Treatment ONCE
EKG- Treatment ONCE
CR Chest - 2 Views Urgent
Comment:
Reason For Exam: respiratory distress
O2 Therapy [RESP] Urgent
Titrate/Wean O2 to maintain O2 sat greater than (%): 93
Special Instructions: TO MAINTAIN CONTINUOUS O2 SATS >/= 93%
Pulse Ox/cont/shift [RESP] Urgent
Quantity: 1
Special Instructions: continuous pulse ox
04/11/24 05:35
Complete Blood Count/With Diff Urgent
Comprehensive Metabolic Panel Urgent
NT-proBNP Urgent
04/11/24 08:05
Heparin 5,000 units .ROUTE .STK-MED ONE
Heparin Pf [Heparin Lock Flush] 500 unit .ROUTE .STK-MED ONE
Abnormal Lab Results
04/11/24
05:35
WBC 4.2 L 10^3/uL
(4.8-10.8)
RBC 4.50 L 10^6/uL
(4.70-6.10)
Hgb 11.8 L g/dL
(13.0-18.0)
Hct 37.2 L %
(39.0-52.0)
MCH 26.2 L pg
(27.0-31.0)
MCHC 31.7 L g/dL
(33.0-37.0)
RDW 16.9 H %
(11.5-14.5)
Absolute Lymphs (auto) 0.5 L 10^3/uL
(1.2-3.4)
Lymphocytes % 12.4 L %
(20.5-51.1)
Monocytes % 12.1 H %
(1.7-9.3)
Sodium 131 L mmol/L
(135-145)
Chloride 96 L mmol/L
(98-107)
BUN 51 H mg/dl
(9-20)
Creatinine 3.2 H mg/dL
(0.7-1.3)
Total Protein 5.2 L g/dl
(6.3-8.2)
Albumin 3.2 L g/dl
(3.5-5.0)
04/11/24 05:35
04/11/24 05:35
Vital Signs
Initial and Last Documented VS:
Initial Vital Signs
Temp Pulse Resp BP Pulse Ox
97.7 F 76 20 97/65 92
04/11/24 04:19 04/11/24 04:19 04/11/24 04:19 04/11/24 04:19 04/11/24 04:19
Last Documented Vital Signs
Temp Pulse Resp BP Pulse Ox
97.6 F 61 17 139/66 100
04/11/24 08:03 04/11/24 09:00 04/11/24 08:30 04/11/24 09:00 04/11/24 09:00
MDM/Problems Addressed
MDM/Problems Addressed:
Chest x-ray: No evidence of pleural effusion. Patient otherwise remains afebrile, hemodynamically stable, and without any acute respiratory distress. Potassium within normal limits. Patient's presenting symptoms likely secondary to incomplete
dialysis treatment 2 days ago. As such, patient will be discharged home, with recommendation to continue already scheduled dialysis session later this morning.
*Critical Care Note
Total Time (30-74mins, 75-104mins- exclusive of procedures): Not Applicable
ED Attending Note
-
Portions of this chart may have been created with voice recognition software.� Occasional wrong word or��sound alike� substitutions may have occurred due to the inherent limitations of voice recognition software.
Discharge Plan
Departure
Patient Disposition: Home (Routine Discharge)
Date of Disposition: 04/11/24
Time of Disposition: 06:36
Patient with high blood pressure during this ER visit?: No
Condition: Good
Discharge Problem:
End-stage renal disease (ESRD), Dyspnea
Instructions: Shortness of Breath (Dyspnea) (DC)
Prescriptions:
No Action
lamotrigine 100 MG tablet
100 mg PO BID
ezetimibe 10 MG tablet
10 mg PO HS
rosuvastatin 10 MG tablet
10 mg PO DAILY
aspirin 81 MG tablet,delayed release (DR/EC)
81 mg PO DAILY
allopurinol 100 MG tablet
100 mg PO DAILY
montelukast [Singulair] 10 mg Tablet
10 mg PO UD
Rx Instructions:
take the night before, night of, and night after Darzalex infusion.
gabapentin [Neurontin] 100 mg Capsule
100 mg PO TID
Darzalex 20 mg/mL Solution
1,800 mg IV QMONTH
Venclexta 100 mg Tablet
200 mg PO DAILY
risperidone 0.25 mg Tablet
0.25 mg PO HS
isosorbide mononitrate 30 mg Tablet Extended Release 24 Hr
30 mg PO DAILY Qty: 0 0RF
acyclovir 200 mg Capsule
200 mg PO BID Qty: 10 0RF
furosemide 80 mg tablet
80 mg PO Q48H@0800
Referrals:
Bang Lambert III, [Family Provider] -
Activity Restrictions/Additional Instructions:
As discussed, please follow-up with your scheduled dialysis session this morning, upon discharge. Afterwards, if your symptoms persist, please follow-up with your primary care physician for reevaluation or consider return to ED with worsening
symptoms.
Interventions
Interventions:
*Risk Screen - Suicide Last Done: 04/11/24 04:19
*General Assessment Last Done: 04/11/24 04:22
*Neglect/Abuse Screening Last Done: 04/11/24 04:19
ED- Fall Risk Assessment Last Done: 04/11/24 09:23
*ED COVID-19 Vaccine History Last Done: 04/11/24 04:19
*Nursing Disposition Last Done: 04/11/24 09:23
ED- Cardiac Assessment Last Done: 04/11/24 04:43
ED- Pulmonary Assessment Last Done: 04/11/24 04:43
Discharge Date and Time
Discharge Date/Time: 04/11/24 09:24
Print Language: KAZAKH
[2024-04-11 05:59] LABS: % Basophils 1.7 % (0-2); % Eosinophils 0.7 % (0-6); % Lymphocytes 12.4 % (20.5-51.1); % Monocytes 12.1 % (1.7-9.3); % Neutrophils 73.1 % (42.2-75.2); Absolute Basophils 0.1 10^3/uL (0-0.2); Absolute Lymphocytes 0.5 10^3/uL (1.2-3.4); Absolute Monocytes 0.5 10^3/uL (0.1-0.6); Absolute Neutrophils 3.1 10^3/uL (1.4-6.5); Hematocrit 37.2 % (39.0-52.0); Hemoglobin 11.8 g/dL (13.0-18.0); Mean Corp Hgb Conc. 31.7 g/dL (33.0-37.0); Mean Corpuscular Hgb 26.2 pg (27.0-31.0); Mean Corpuscular Volume 82.7 fL (80.0-94.0); Mean Platelet Volume 9.9 fL (7.4-10.4); Nucleated Red Blood Cells % 0 % (-); Platelet Count 157 10^3/uL (130-400); Red Cell Dist. Width 16.9 % (11.5-14.5); White Blood Cell Count 4.2 10^3/uL (4.8-10.8)
[2024-04-11 06:26] LABS: ALT (SGPT) < 10 U/L (0-50); AST (SGOT) 19 U/L (17-59); Albumin 3.2 g/dl (3.5-5.0); Alkaline Phosphatase 98 U/L (38-126); Blood Urea Nitrogen 51 mg/dl (9-20); Calcium 8.6 mg/dl (8.4-10.2); Carbon Dioxide 24 mmol/L (22-30); Chloride 96 mmol/L (98-107); Estimated Creatinine Clearance 18 ml/min; Glucose 97 mg/dl (70-99); Potassium 4.7 mmol/L (3.5-5.1); Sodium 131 mmol/L (135-145); Total Bilirubin 0.8 mg/dl (0.2-1.3); Total Protein 5.2 g/dl (6.3-8.2); eGFR 19.56
[2024-04-11 06:31] LABS: NT-proBNP > 27000 pg/ml
--- NOTE | 2024-04-11 07:10 | EDRN ---
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
denies needing anything at this time, will continue to monitor the pt closely
[2024-04-11 07:30] VITALS: BP 122/57
[2024-04-11 08:00] VITALS: BP 124/60
[2024-04-11 08:03] VITALS: BP 124/65
--- NOTE | 2024-04-11 08:07 | EDRN ---
IV team currently at the pts bedside deaccessing the pts port
[2024-04-11 09:00] VITALS: BP 139/66
== END 2024-04-11 09:24 | disposition home or self-care (01) ==
LOC: EMR 04:17
PROVIDERS: EMERGENCY PHYSICIAN Emergency Medicine; FAMILY PHYSICIAN Internal Medicine
DX: N18.6 End stage renal disease (principal); R06.00 Dyspnea, unspecified; I48.91 Unspecified atrial fibrillation; I25.10 Atherosclerotic heart disease of native coronary artery without angina pectoris; I13.2 Hypertensive heart and chronic kidney disease with heart failure and with stage 5 chronic kidney disease, or end stage renal disease; I50.9 Heart failure, unspecified; E78.00 Pure hypercholesterolemia, unspecified; G47.30 Sleep apnea, unspecified; Z87.442 Personal history of urinary calculi; Z87.891 Personal history of nicotine dependence; Z95.5 Presence of coronary angioplasty implant and graft; Z96.653 Presence of artificial knee joint, bilateral; Z99.2 Dependence on renal dialysis
CPT/HCPCS: 99283; 71046; 80053; 83880; 85025; 93005

== ENCOUNTER 2024-04-21 15:19 | Inpatient (IN) | payer MEDICARE, SELFPAY ==
[2024-04-19] VITALS (11 sets, daily range): BP systolic 103–142; BP diastolic 24–88; BMI 19.9
--- NOTE | 2024-04-19 07:51 | ED.GENMED ---
History of Present Illness
General
Chief Complaint: Change in Mental Status
Time Seen by Provider: 04/19/24 07:51
History of Present Illness
History of Present Illness:
TIME OF INITIAL ENCOUNTER: 7:55 AM
HPI: The patient is somewhat of a limited historian so I spoke to the son over the phone. The son tells me that the patient called him and had slurred speech. The patient seemed confused as he apparently called his brother asking to get him orange
juice (however the patient's brother lives in [place]). He missed hemodialysis yesterday.
EXAM:
GENERAL: The patient appears generally weak and debilitated
HEENT: Moist oral mucosa
CARDIOVASCULAR: No murmurs, normal heart rate, regular rhythm, No chest wall tenderness
PULMONARY: No respiratory distress, breath sounds are clear and equal
ABDOMEN: Soft with no peritoneal signs, no tenderness
NEUROLOGIC: Fair strength all extremities, no coordination deficits, abnormal speech pattern
PSYCHIATRIC: Limited insight and judgment with impaired memory
EXTREMITIES: Nontender, no edema, moves all extremities equally
SKIN: No rash, no lesions
NUMBER AND COMPLEXITY OF PROBLEMS ADDRESSED AT THE ENCOUNTER
� Chronic conditions affecting care: A-fib, CHF, CAD, high blood pressure, multiple myeloma, CKD on HD
� Acute Exacerbation and/or Progression of Chronic Illness: This is an acute problem CVA, hypoglycemia,
� Differential Diagnosis includes: Electrolyte abnormality (missed HD yesterday), pleural effusion, CVA
AMOUNT AND/OR COMPLEXITY OF DATA TO BE REVIEWED AND ANALYZED
� I performed an independent evaluation of and my interpretation is:
EKG:
CT: CT head negative acute, CT chest shows improved effusion with likely atelectasis instead of pneumonia
X-rays:
Laboratory Studies: Mild pancytopenia, questionable UTI, chemistries at baseline
Other:
� Review of other/old records: I reviewed records. The patient was seen with shortness of breath just over a week ago and at that time was felt to be related to incomplete dialysis session.
� Clinical information was obtained by an independent historian: I spoke to the son over the phone at 8:05 AM
� Prescriptions/Medications Considered but not given:
� Further testing considered but not performed:
RISK OF COMPLICATIONS AND/OR MORBIDITY OR MORTALITY OF PATIENT MANAGEMENT
� Social determinants of health affecting care: Lives at home by himself
� Discussion with other providers: Hospitalist for admission at 12:45 PM
� Escalation of care including admission/observation vs risk of discharge considered: The patient arrives with an abnormal speech pattern and concerns for change in mental status according to the son. CT imaging obtained.
ANY OTHER UPDATES:
12:43PM: I spoke to son over phone - dramatic change in speech and mental status, lives alone, son does not feel that he can safely be discharged. Give a dose of Rocephin for the possibly of UTI�no clear Rocephin allergy
Past History
Past History
ED Past Medical History: Arrthythmia (Atrial fib), CAD, Cancer (multiple myeloma, Skin CA), CHF, HTN, Hypercholesterolemia, [place], Renal failure (Dialysis M-W-F), Psychiatric (Depression) and Other ( amyloidosis, Syncope, Renal calculus, Lymes, Sleep
apnea uses CPAP)
ED Past Surgical History: Cardiac (Stents X 4), Orthopedic (Cancer removed from left shoulder, Left knee meniscus, Right rotator cuff, , Bilateral knee replacement) and Other (Hernia repair, left arm fistula)
Social History
Tobacco: Former smoker
Alcohol: Occasional
Drug: None
Personal:
Living: alone
Employment: Not employed
Phy Exam
Physical Exam
Physical Exam:
See HPI
Course
Orders/Labs/Results
Orders:
Orders
04/19/24 08:00
CT Chest W/o Iv Contrast Urgent
Comment:
Reason For Exam: eval effusion vs infilt vs edema; abnl CXR 04/11
04/19/24 08:03
CT Head W/o Iv Contrast Urgent
Comment:
Reason For Exam: slurred speech
04/19/24 11:00
Complete Blood Count/With Diff Urgent
Comprehensive Metabolic Panel Urgent
Urinalysis Reflex To Culture Urgent
Date Specimen was Collected: 04/19/24
Time Specimen was Collected: 10:43
Urine Microscopic Reflex Cult Urgent
Urine Culture Urgent
KRISTA Source: U
Specimen Description:
Date Specimen was Collected: 04/19/24
Time Specimen was Collected: 10:43
04/19/24 12:46
0.9% Sodium Chloride 250 ml [Nss] 250 ml IV BOLUS
CefTRIAXone [Rocephin] 1,000 mg IV NOW STA
04/19/24 13:51
COVID-19 Antigen Stat
Source: Nasal Swab
Influenza A+B Rapid Molecular Stat
KRISTA Source: Nasal Swab
Specimen Description:
04/19/24 14:07
Admit/Transfer Patient As Directed
Co-Sign Provider:
Level of Care: Observation services
Assign to:: Medical/Surgical
Physician / Group: fabiola
Diagnosis: genearlized weakness
04/19/24 14:09
PRN Pain Medication Management As Directed
May give lesser potent ordered pain med per pt: Yes
preference::
Protocol:: Medication orders for pain may be administered in a
manner that supports deferring to patient preference
when the pt is:
- Requesting an ordered lesser potent pain medication.
Least to most potent pain medications are defined
as: acetaminophen < NSAID < tramadol < opioids
(morphine, oxycodone, hydromorphone).
- Requesting a lesser dose of the same medication IF
ORDERED.
- Requesting a less intrusive route of administration
if both routes are prescribed by the provider (PO <
IV).
04/19/24 14:10
Code Status As Directed
Resuscitation Status: Full Code
Abnormal Lab Results
04/19/24
11:00
WBC 3.1 L 10^3/uL
(4.8-10.8)
RBC 3.71 L 10^6/uL
(4.70-6.10)
Hgb 9.7 L g/dL
(13.0-18.0)
Hct 31.4 L %
(39.0-52.0)
MCH 26.1 L pg
(27.0-31.0)
MCHC 30.9 L g/dL
(33.0-37.0)
RDW 17.4 H %
(11.5-14.5)
Plt Count 115 L 10^3/uL
(130-400)
Absolute Lymphs (auto) 0.5 L 10^3/uL
(1.2-3.4)
Lymphocytes % 15.8 L %
(20.5-51.1)
Monocytes % 10.6 H %
(1.7-9.3)
Sodium 134 L mmol/L
(135-145)
Chloride 95 L mmol/L
(98-107)
BUN 33 H mg/dl
(9-20)
Creatinine 3.4 H mg/dL
(0.7-1.3)
Total Protein 6.0 L g/dl
(6.3-8.2)
Leukocyte Esterase Rfl 1+ A
(Negative)
Urine WBC (Reflex) 11-15 A /HPF
(0-5)
Urine Bacteria (Reflex) Few A
(Negative)
Urine Albumin (Reflex) 1+ A
(Neg - Trace)
04/19/24 11:00
04/19/24 11:00
Vital Signs
Initial and Last Documented VS:
Initial Vital Signs
Temp Pulse Resp BP Pulse Ox
36.6 C 62 18 119/62 90
04/19/24 07:43 04/19/24 07:43 04/19/24 07:43 04/19/24 07:43 04/19/24 07:43
Last Documented Vital Signs
Temp Pulse Resp BP Pulse Ox
36.6 C 77 15 138/88 100
04/19/24 07:43 04/19/24 12:15 04/19/24 12:15 04/19/24 10:00 04/19/24 09:14
*Critical Care Note
Total Time (30-74mins, 75-104mins- exclusive of procedures): Not Applicable
ED Attending Note
-
Portions of this chart may have been created with voice recognition software.� Occasional wrong word or��sound alike� substitutions may have occurred due to the inherent limitations of voice recognition software.
Discharge Plan
Departure
Patient Disposition: Admit
Date of Disposition: 04/19/24
Time of Disposition: 13:33
Presentation/result/management discussed w/ accepting MD/DO: Hospitalist
Discharge Problem:
Altered mental state
Interventions
Interventions:
*Risk Screen - Suicide Last Done: 04/19/24 07:43
*General Assessment Last Done: 04/19/24 08:20
*Neglect/Abuse Screening Last Done: 04/19/24 07:43
*ED COVID-19 Vaccine History Last Done: 04/19/24 08:17
ED- Pulmonary Assessment Last Done: 04/19/24 08:20
ED- Neurological Assessment Last Done: 04/19/24 08:20
ED- Cardiac Assessment Last Done: 04/19/24 08:20
[2024-04-19 11:17] LABS: Urine Albumin 1+ (Neg - Trace); Urine Bilirubin Negative (Negative); Urine Character Clear (Clear); Urine Color Yellow; Urine Glucose Negative (Negative); Urine Ketone Negative (Negative); Urine Leukocyte 1+ (Negative); Urine Nitrite Negative (Negative); Urine Occult Blood Negative (Negative); Urine Urobilinogen Negative (Neg - 1+)
[2024-04-19 11:22] LABS: Hematocrit 31.4 % (39.0-52.0); Hemoglobin 9.7 g/dL (13.0-18.0); Mean Corp Hgb Conc. 30.9 g/dL (33.0-37.0); Mean Corpuscular Hgb 26.1 pg (27.0-31.0); Mean Corpuscular Volume 84.6 fL (80.0-94.0); Mean Platelet Volume 10.1 fL (7.4-10.4); Platelet Count 115 10^3/uL (130-400); Red Blood Cell Count 3.71 10^6/uL (4.70-6.10); Red Cell Dist. Width 17.4 % (11.5-14.5); White Blood Cell Count 3.1 10^3/uL (4.8-10.8)
[2024-04-19 11:32] LABS: ALT (SGPT) < 10 U/L (0-50); AST (SGOT) 19 U/L (17-59); Albumin 3.5 g/dl (3.5-5.0); Alkaline Phosphatase 97 U/L (38-126); Blood Urea Nitrogen 33 mg/dl (9-20); Calcium 8.6 mg/dl (8.4-10.2); Carbon Dioxide 30 mmol/L (22-30); Chloride 95 mmol/L (98-107); Glucose 86 mg/dl (70-99); Sodium 134 mmol/L (135-145); Total Bilirubin 0.8 mg/dl (0.2-1.3); eGFR 18.19
[2024-04-19 11:33] LABS: Urine Red Blood Cell 0-2 /HPF (0-2); Urine Squamous Cell 0-2 /LPF (Few)
[2024-04-19 11:34] LABS: Urine Bacteria Few (Negative)
[2024-04-19 12:20] LABS: % Basophils 1.3 % (0-2); % Eosinophils 3.9 % (0-6); % Lymphocytes 15.8 % (20.5-51.1); % Monocytes 10.6 % (1.7-9.3); % Neutrophils 68.4 % (42.2-75.2); Absolute Eosinophils 0.1 10^3/uL (0-0.7); Absolute Lymphocytes 0.5 10^3/uL (1.2-3.4); Absolute Monocytes 0.3 10^3/uL (0.1-0.6); Absolute Neutrophils 2.1 10^3/uL (1.4-6.5); Nucleated Red Blood Cells % 0 % (-)
--- NOTE | 2024-04-19 13:35 | HPS.HSE ---
Family Physician
-
Family Physician: Bang Lambert
Chief Complaint
-
weakness
sob
History of Present Illness
73-year-old with PMH for coronary disease, end-stage renal disease on dialysis, A-fib, hypertension, CHF, multiple myeloma presented to us with short of breath since yesterday. Patient stated very weak. Patient was very weak and tired to get up
from the bed yesterday. He missed his dialysis yesterday .patient denies headache, dizzy or syncope .patient denied fever, chills, congestion, cough. Patient denied chest pain. Patient denied dysuria hematuria.
head CT with no acute finding. Patient received ceftriaxone for possible UTI. Admitting for further management
Medical History
Past Medical History
Past Medical History: Reports Other
Additional Past Medical History:
Coronary artery disease
End-stage renal disease
A-fib
Hypertension
Heart failure
Dyslipidemia
Multiple myeloma
IgG, PT
Lyme disease
Rule out restless leg syndrome
Past Surgical History: Reports Other
Additional Past Surgical History:
Bilateral total knee replacement
Cardiac stent
Rotator cuff repair
Social History
Tobacco: Former Smoker
Alcohol: None
Drug: None
Personal: Single
Living: Alone
Family History
Family History: Not pertinent
Allergies / Home Medications
Allergies reflects when Allergies were last updated in [facility].
Home Medications with original date entered in [facility]
Allergy/Medication List:
Allergies
Allergy/AdvReac Type Severity Reaction Status Date / Time
atorvastatin Allergy MUSCLE Verified 04/19/24 07:43
CRAMPS
Cephalosporins Allergy kidney Verified 04/19/24 07:43
disease
coconut Allergy vomits Verified 04/19/24 07:43
penicillin V Allergy Vomiting Verified 04/19/24 07:43
pregabalin [From Lyrica] Allergy Tongue Verified 04/19/24 07:43
Swelling
simvastatin Allergy muscle Verified 04/19/24 07:43
cramps
Home Medications
lamotrigine 100 mg tablet 100 mg PO BID Neurological Condition 07/24/19
ezetimibe 10 mg tablet 10 mg PO HS High cholesterol 08/26/19
rosuvastatin 10 mg tablet 10 mg PO DAILY High cholesterol 08/26/19
aspirin 81 mg tablet,delayed release 81 mg PO DAILY Blood clot prevention/tx 08/27/19
allopurinol 100 mg tablet 100 mg PO DAILY Gout 06/15/20
gabapentin 100 mg capsule (Neurontin) 100 mg PO TID Pain 09/26/21
montelukast 10 mg tablet (Singulair) 10 mg PO UD bone pain prevention 09/26/21
daratumumab 20 mg/mL intravenous solution (Darzalex) 1,800 mg IV QMONTH Cancer 04/20/23
venetoclax 100 mg tablet (Venclexta) 200 mg PO DAILY Cancer 04/20/23
risperidone 0.25 mg tablet 0.25 mg PO HS Mental Health/Anxiety 08/06/23
isosorbide mononitrate 30 mg tablet,extended release 24 hr 30 mg PO DAILY HEART CONDITION #0 tabs 08/21/23
furosemide 80 mg tablet 80 mg PO Q48H@0800 Fluid Retention/Swelling 02/11/24
acyclovir 200 mg capsule 200 mg PO BID 04/19/24
Review of Systems
-
Constitutional: Reports Fatigue
EENT: Reports No Symptoms
Respiratory: Reports Trouble Breathing
Cardiac: Reports No Symptoms
Abdomen/GI: Reports No Symptoms
: Reports No Symptoms
Musculoskeletal: Reports No Symptoms
Skin: Reports No Symptoms
Neurological: Reports No Symptoms
Endocrine: Reports No Symptoms
Hematologic/Lymphatic: Reports No Symptoms
Psych: Reports No Symptoms
Physical Exam
Vital Signs
Vital Signs
Temp Pulse Resp BP Pulse Ox
97.9 F 77 15 138/88 100
04/19/24 07:43 04/19/24 12:15 04/19/24 12:15 04/19/24 10:00 04/19/24 09:14
Physical Exam
General: Well Developed, Well Nourished and No Apparent Distress
HEENT: NormoCephalic, Moist mucous membranes and Atraumatic
Respiratory: Clear
Cardiac: S1/S2 and Regular Rhythm; No Murmur or Rub
GI: Soft, Non Tender, Non Distended and Normal Bowel Sounds; No Organomegaly
Rectal: Deferred by Provider
Musculoskeletal: No Clubbing, No Cyanosis and No Edema
Skin: Dry
Neuro: AO x 3 and Nonfocal/grossly intact
Psych: Calm
Laboratory Results
-
04/19/24 11:00
04/19/24 11:00
Laboratory Results
Total Bilirubin 0.8 mg/dl (0.2-1.3) 04/19/24 11:00
AST 19 U/L (17-59) 04/19/24 11:00
ALT < 10 U/L (0-50) 04/19/24 11:00
Alkaline Phosphatase 97 U/L (38-126) 04/19/24 11:00
Data Reviewed
-
Diagnostic Radiology: Report Reviewed by me
CT Scan: Report Reviewed by me
Lab Data: Labs Reviewed by me
Impression/Plan
-
#sob unclear cause
-chest CT with Small pleural effusion in the inferior left hemithorax with mild surrounding pleural thickening (decreased in size since 01/01/2024).
2. Mild subpleural subsegmental atelectasis and scarring in the basilar segments of the lower lobes.
3. Thick band of airspace consolidation in the inferolateral right middle lobe with associated right middle lobe volume loss which is most likely atelectasis. Right middle lobe pneumonia is an alternative diagnostic possibility if there are
signs/symptoms of pulmonary infection.
4. Mild bilateral lower lobe bronchitis.
5. Severe calcific atherosclerotic plaque in the coronary arteries and thoracic aorta.
6. Right IJ Mediport in place.
7. Severe discogenic degenerative disease in the cervical and thoracic spine.
8. Chronic bilateral full-thickness rotator cuff tears.
9. Severe osteoarthritis of the glenohumeral joints.
-will obtain flu and COVID
-oxygenating very well on RA
#metabolic encephalopathy possible UTI
-Head CT mild periventricular white matter leukoaraiosis in the frontal lobes.
2. Mild asymmetric low attenuation in the periventricular left frontal lobe which could be secondary to white matter leukoaraiosis or a small chronic white matter infarct which appears unchanged.
3. Mild diffuse cerebral and cerebellar volume loss.
4. No CT evidence for acute intracranial hemorrhage or transcortical infarct.
-Patient is asymptomatic, patient is oriented x 3
-Will defer antibiotics at this time
-Pending urine culture
# Generalized weakness
- PT/OT consulted
#ESRD on dialysis
-nephrology consulted
#chornic pancytopenia/history of multiple myeloma/AL amyloidosis
-wbc 3.1,hgb of 9.7,platelet 115,
-ctm
-Continue acyclovir prophylactically
-Patient on Venclexta
#CAD -history of multiple stents.
-Aspirin continued
#/Chronic heart failure reduced EF
-Furosemide continued
-Isosorbide continued
Chronic troponin elevation -likely due to ESRD. Asymptomatic.
Chronic anemia -hemoglobin at baseline.
Asthma, mild intermittent
-Singular continued
# Anxiety
-Risperidone, Lamictal continued
# Gout
-Allopurinol continued
-Gabapentin continued
# Hyperlipidemia
-Zetia, rosuvastatin continued
Full code
[2024-04-19] MEDS: NSS 250 IV (13:43)
[2024-04-19] MEDS: ROCEPHIN 1000 MG IV (13:43)
[2024-04-19 14:57] LABS: COVID-19 Antigen Negative (Negative)
--- NOTE | 2024-04-19 15:31 | W.PN.UPDATE ---
Update Note
Progress Note Update
attending addendum
Patient seen independently
73-year-old man with PMH of
coronary disease,
end-stage renal disease on dialysis,
A-fib,
hypertension,
CHF,
multiple myeloma
comes in with short of breath since yesterday and weakness. Patient states that he was very weak and tired to get up from the bed yesterday and because of that he missed his dialysis yesterday .He denies headache, dizzy or syncope, fever, chills,
congestion, cough, chest pain, dysuria hematuria. head CT had no acute finding. UA showed possible UTI, so Patient received ceftriaxone for possible UTI. Covid and Flu negative.
Past Medical History
Coronary artery disease
End-stage renal disease
A-fib
Hypertension
Heart failure
Dyslipidemia
Multiple myeloma
IgG, PT
Lyme disease
Rule out restless leg syndrome
Past Surgical History: Reports Other
Additional Past Surgical History:
Bilateral total knee replacement
Cardiac stent
Rotator cuff repair
mphatic: Reports No Symptoms
Psych: Reports No Symptoms
Physical Exam
General: Well Developed, Well Nourished and No Apparent Distress
HEENT: NormoCephalic, Moist mucous membranes and Atraumatic
Respiratory: Clear
Cardiac: S1/S2 and Regular Rhythm; No Murmur or Rub
GI: Soft, Non Tender, Non Distended and Normal Bowel Sounds; No Organomegaly
Psych: Calm
Impression/Plan
1. sob unclear cause, missed recent HD because of weakness.
-chest CT shows a Thick band of airspace consolidation in the inferolateral right middle lobe with associated right middle lobe volume loss which is most likely atelectasis.
But, a Right middle lobe pneumonia is an alternative diagnostic possibility.
Presumptively treat for community acquired PNA, which explains the symptoms and WBC count. (note the pancytopenia)
2. metabolic encephalopathy, possible UTI
-Pending urine culture
PNA abx should cover usual organisms anyway.
3. Generalized weakness - likely from PNA
4. ESRD on dialysis
-nephrology consulted
Please see [employer] note for full details on:
chronic pancytopenia/history of multiple myeloma/AL amyloidosis
CAD -history of multiple stents.
Chronic heart failure reduced EF
Chronic troponin elevation -likely due to ESRD. Asymptomatic.
Chronic anemia -hemoglobin at baseline.
Asthma, mild intermittent
Anxiety
Gout
Hyperlipidemia
Full code
VCD for DVTp
--- NOTE | 2024-04-19 16:26 | W.CON.NEPH ---
Consultation
-
Date/Time Consultation Requested: 04/19/24 1536
Date/Time Consultation Performed: 04/19/24 1635
Requesting Provider: Archie Asher
Performing Provider: Patricia Christianson
Reason for Consultation: ESRD
Medical History
-
Chief Complaint: SOB
History of Present Illness:
73y/o M with ESRD on HD started in July 2023. He has a left AVF and receives dialysis at [facility] on MWF, HTN, ASCVD on ASA, HFrEF on imdur, MM, recurrent pleural effusion requiring thoracentesis on several occasions, Reports he recently
underwent a procedure at [facility], [place] presented with the complaints of shortness of breath. Reportedly patient unable to get to his dialysis unit yesterday she wasn't feeling well and shortness of breath increased over the night hence presented to the
hospital this morning. He denies any fever or coughing. No nausea or vomiting. Denies any syncope or dizziness. Reports usually no issues with his dialysis. Compared to previous times he looks very emaciated and failure to thrive. History is
somewhat difficult to obtain from the patient as he looks very exhausted. He is on 1-2 L of nasal cannula of O2.
head CT with no acute finding. Patient received ceftriaxone for possible UTI. nephrology consult for dialysis needs.
Past Medical History
ASCVD
Hypertension
Chronic HFrEF
Paroxysmal Atrial Fibrillation
ESRD on HD MWF left CVC
Multiple Myeloma / Amyloidosis
Gout
Anemia of Chronic Disease
Recurrent Left Pleural Effusion
Chemo-Induced Peripheral Neuropathy
Depression
Retroperitoneal Bleeding on Eliquis
Past Surgical History: Other (Left IJ HD Catheter R ACW Port PTCA with Stent (x 4) Bilateral TKA Hernia Repair Right Rotator Cuff Repair (x 2))
Social History
Tobacco: Former Smoker (quit in )
Alcohol: Occasional
Drug: None
Living: Alone
Family History
Family History: Not Pertinent
Allergies / Home Medications
Allergy/AdvReac Type Severity Reaction Status Date / Time
atorvastatin Allergy MUSCLE Verified 04/19/24 07:43
CRAMPS
Cephalosporins Allergy kidney Verified 04/19/24 07:43
disease
coconut Allergy vomits Verified 04/19/24 07:43
penicillin V Allergy Vomiting Verified 04/19/24 07:43
pregabalin [From Lyrica] Allergy Tongue Verified 04/19/24 07:43
Swelling
simvastatin Allergy muscle Verified 04/19/24 07:43
cramps
�Medication �Instructions �Recorded �Confirmed �Type
lamotrigine 100 mg tablet 100 mg PO BID Neurological 07/24/19 04/19/24 History
Condition
ezetimibe 10 mg tablet 10 mg PO HS High cholesterol 08/26/19 04/19/24 History
rosuvastatin 10 mg tablet 10 mg PO DAILY High cholesterol 08/26/19 04/19/24 History
aspirin 81 mg tablet,delayed 81 mg PO DAILY Blood clot 08/27/19 04/19/24 History
release prevention/tx
allopurinol 100 mg tablet 100 mg PO DAILY Gout 06/15/20 04/19/24 History
gabapentin 100 mg capsule 100 mg PO TID Pain 09/26/21 04/19/24 History
(Neurontin)
montelukast 10 mg tablet 10 mg PO UD bone pain prevention 09/26/21 04/19/24 History
(Singulair)
daratumumab 20 mg/mL intravenous 1,800 mg IV QMONTH Cancer 04/20/23 04/19/24 History
solution (Darzalex)
venetoclax 100 mg tablet 200 mg PO DAILY Cancer 04/20/23 04/19/24 History
(Venclexta)
risperidone 0.25 mg tablet 0.25 mg PO HS Mental Health/Anxiety 08/06/23 04/19/24 History
isosorbide mononitrate 30 mg 30 mg PO DAILY HEART CONDITION #0 08/21/23 04/19/24 Rx
tablet,extended release 24 hr tabs
furosemide 80 mg tablet 80 mg PO BID Fluid 02/11/24 04/19/24 History
Retention/Swelling
acyclovir 200 mg capsule 200 mg PO BID 04/19/24 04/19/24 History
Review of Systems
-
Difficult to obtain, all review of system have been inquired and found negative other than stated in HPI
Physical Exam
Vital Signs
Vital Signs
Temp Pulse Resp BP Pulse Ox
97.9 F 59 20 121/74 100
04/19/24 07:43 04/19/24 15:15 04/19/24 15:15 04/19/24 15:03 04/19/24 15:15
Lab Results
WBC 3.1 10^3/uL (4.8-10.8) L 04/19/24 11:00
RBC 3.71 10^6/uL (4.70-6.10) L 04/19/24 11:00
Hgb 9.7 g/dL (13.0-18.0) L 04/19/24 11:00
Hct 31.4 % (39.0-52.0) L 04/19/24 11:00
Plt Count 115 10^3/uL (130-400) L 04/19/24 11:00
Sodium 134 mmol/L (135-145) L 04/19/24 11:00
Potassium 4.0 mmol/L (3.5-5.1) 04/19/24 11:00
Chloride 95 mmol/L (98-107) L 04/19/24 11:00
Carbon Dioxide 30 mmol/L (22-30) 04/19/24 11:00
BUN 33 mg/dl (9-20) H 04/19/24 11:00
Creatinine 3.4 mg/dL (0.7-1.3) H 04/19/24 11:00
eGFR 18.19 04/19/24 11:00
Glucose 86 mg/dl (70-99) 04/19/24 11:00
Calcium 8.6 mg/dl (8.4-10.2) 04/19/24 11:00
Albumin 3.5 g/dl (3.5-5.0) 04/19/24 11:00
CT chest;
IMPRESSION:
1. Small pleural effusion in the inferior left hemithorax with mild surrounding pleural thickening (decreased in size since 01/01/2024).
2. Mild subpleural subsegmental atelectasis and scarring in the basilar segments of the lower lobes.
3. Thick band of airspace consolidation in the inferolateral right middle lobe with associated right middle lobe volume loss which is most likely atelectasis. Right middle lobe pneumonia is an alternative diagnostic possibility if there are
signs/symptoms of pulmonary infection.
4. Mild bilateral lower lobe bronchitis.
5. Severe calcific atherosclerotic plaque in the coronary arteries and thoracic aorta.
6. Right IJ Mediport in place.
7. Severe discogenic degenerative disease in the cervical and thoracic spine.
8. Chronic bilateral full-thickness rotator cuff tears.
9. Severe osteoarthritis of the glenohumeral joints.
CT head:
IMPRESSION:
1. Mild periventricular white matter leukoaraiosis in the frontal lobes.
2. Mild asymmetric low attenuation in the periventricular left frontal lobe which could be secondary to white matter leukoaraiosis or a small chronic white matter infarct which appears unchanged.
3. Mild diffuse cerebral and cerebellar volume loss.
4. No CT evidence for acute intracranial hemorrhage or transcortical infarct.
Physical Exam
General: Awake, Alert, Oriented and AOx3
HEENT: EOMI, Anicteric and Facial Symmetry
Respiratory: Nonlabored Respirations and Other (Decreased breath sounds,)
Cardiac: S1/S2 and Regular Rate/Rhythm
Breast: Deferred by me
Abdomen: Soft, Nontender and Nondistended
Musculoskeletal: No Edema
Skin: Dry ( very dry skin in lower extremities)
Neuro: Nonfocal/Grossly Intact
Psych: Appropriate
Vascular Access: AVF
Assessment/Plan
-
Impression:
sob unclear cause
Possible PNA
metabolic encephalopathy, possible UTI
Generalized weakness
End-stage renal disease Sunday [facility] unit
Recurrent left pleural effusion, s/p multiple thoracentesis
Anemia
Coronary artery disease with multiple stents
Atrial fibrillation
Heart failure reduced ejection fraction
Left AVF
AL amyloidosis/multiple myeloma
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
chronic pancytopenia
Asthma, mild intermittent
Anxiety
Gout
Hyperlipidemia
mild hyponatremia
Plan:
A/w sob, CT chest possible pNA
missed HD on Sunday, schedule tomorrow specially he seem to have muscle jerking
abx per primary
over all he seem to have FTT and looks like lost wt
no obvious hypervolemia on exam
BP stable,prn midodrine
d/w pt
[2024-04-19] MEDS: NEURONTIN 100 MG PO ×2 (18:01→20:50)
[2024-04-19] MEDS: LAMICTAL 100 MG PO (20:50)
[2024-04-19] MEDS: VIBRAMYCIN 100 MG PO (20:50)
[2024-04-19] MEDS: ZOVIRAX 200 MG PO (20:50)
[2024-04-19] MEDS: RISPERDAL 0.25 MG PO (20:50)
[2024-04-19] MEDS: ZETIA 10 MG PO (20:50)
[2024-04-19] MEDS: HEPARIN 5000 UNITS SC (20:51)
--- NOTE | 2024-04-20 01:01 | PTCARENOTE ---
Received patient via stretcher from ER approx 20:00 he is AAOX3 flat affect able to answer all questions, he has no pain, skin is intact just extremely dry, blanchable redness on sacrum, patient wishes to keep jeans and sneakers on while in bed. his
VS were stable took all medications w/o difficulty. He is here as observation status. Resting in bed at this time in no distress. Call angelo and urinal within reach, patient was instructed to call for nurse prior to getting out of bed, he verbalized
understanding.
[2024-04-20 05:19] LABS: Hematocrit 32.2 % (39.0-52.0); Hemoglobin 10.3 g/dL (13.0-18.0); Mean Corpuscular Hgb 26.8 pg (27.0-31.0); Mean Corpuscular Volume 83.9 fL (80.0-94.0); Mean Platelet Volume 10.9 fL (7.4-10.4); Platelet Count 119 10^3/uL (130-400); Red Blood Cell Count 3.84 10^6/uL (4.70-6.10); Red Cell Dist. Width 17.4 % (11.5-14.5); White Blood Cell Count 3.6 10^3/uL (4.8-10.8)
[2024-04-20 05:35] LABS: Blood Urea Nitrogen 33 mg/dl (9-20); Calcium 7.9 mg/dl (8.4-10.2); Carbon Dioxide 26 mmol/L (22-30); Chloride 99 mmol/L (98-107); Estimated Creatinine Clearance 18 ml/min; Glucose 86 mg/dl (70-99); Potassium 3.7 mmol/L (3.5-5.1); Sodium 135 mmol/L (135-145); eGFR 18.85
[2024-04-20 07:22] VITALS: BP 98/62
[2024-04-20] MEDS: LASIX PO (08:00)
[2024-04-20] MEDS: HEPARIN SC (08:00)
[2024-04-20] MEDS: IMDUR (EXTENDED RELEASE) PO (08:00)
[2024-04-20] MEDS: MANNITOL 25% 12.5 GRAMS IV ×2 (08:05→09:36)
[2024-04-20] MEDS: FLEXBUMIN 25% FOR HEMODIALYSIS 12.5 GRAMS IV ×2 (08:10→09:37)
[2024-04-20] MEDS: RETACRIT 2000 UNITS IV (09:00)
[2024-04-20] MEDS: VIBRAMYCIN 100 MG PO ×2 (12:04→20:51)
[2024-04-20] MEDS: LAMICTAL 100 MG PO ×2 (12:04→20:51)
[2024-04-20] MEDS: ASPIR LOW (ENTERIC COATED) 81 MG PO (12:04)
[2024-04-20] MEDS: CRESTOR 10 MG PO (12:04)
[2024-04-20] MEDS: ZOVIRAX 200 MG PO ×2 (12:04→20:51)
[2024-04-20] MEDS: NEURONTIN 100 MG PO ×3 (12:05→20:51)
[2024-04-20] MEDS: STERILE WATER FOR INJECTION 10 ML IV (12:05)
[2024-04-20] MEDS: FLUSH (NSS) 2 FLUSH IV (12:06)
[2024-04-20] MEDS: ROCEPHIN 1000 MG IV (12:06)
[2024-04-20] MEDS: ZYLOPRIM 100 MG PO (12:06)
--- NOTE | 2024-04-20 13:48 | W.PN.HOSP.TC ---
Addendum entered and electronically signed by Bailey Clark MD 04/20/24 21:03:
I saw and evaluated the patient independently. I reviewed the resident�s note and agree with findings and plan as documented by Dr. Tineo.
GENERAL: well developed, well nourished, male in no apparent distress
HEENT: NC/AT
HEART: irreg irreg
LUNGS : clear to auscultation bilaterally
ABDOM: soft, nontender, nondistended, + bowel sounds
EXT: no cyanosis, clubbing, or edema
NEUROLOGIC: grossly intact
Shortness of breath--likely due to missed HD--getting today and full dose tomorrow (usual days MW)� Chest CT: Small pleural effusion in the inferior left hemithorax with mild surrounding pleural thickening (decreased in size since 01/01/2024). Mild
subpleural subsegmental atelectasis and scarring in the basilar segments of the lower lobes. Thick band of airspace consolidation in the inferolateral right middle lobe with associated right middle lobe volume loss which is most likely atelectasis.
Right middle lobe pneumonia is an alternative diagnostic possibility if there are signs/symptoms of pulmonary infection� Continue antibiotics, possible community acquired PNA
Generalized weakness--PT/OT--possible failure to thrive?--UA suggests infection-- metabolic encephalopathy, possible UTI, pneumonia--culture pending
ESRD on dialysis� Nephrology following� Plan for hemodialysis tomorrow
Hypotension, chronic� Patient notes has been hypotensive for the past few months, is following up with his PCP� Midodrine as needed
Chronic pancytopenia/history of multiple myeloma/AL amyloidosis� Continue home meds
CAD- History of multiple stents
HFrEF --no acute exacerbation--on Imdur--cont lasix
Asthma� No wheezing on exam
Anxiety--risperidone, lamotrigine
Gout -- allopurinol
Hyperlipidemia--rosuvastatin
DVT proph
code status -- FULL CODE
Original Note:
Today's Communication/Plan
-
Hemodialysis today, plan for tomorrow?
Urine culture pending
Continue antibiotics
Assessment / Plan
Assessment / Plan
73y/o M with ESRD on HD (left AVF, MWF), HTN, ASCVD on ASA, HFrEF on imdur, MM, recurrent pleural effusion requiring thoracentesis presenting with:
#Shortness of breath
� Unclear cause, missed recent HD because of weakness
� Chest CT: Small pleural effusion in the inferior left hemithorax with mild surrounding pleural thickening (decreased in size since 01/01/2024). Mild subpleural subsegmental atelectasis and scarring in the basilar segments of the lower lobes. Thick
band of airspace consolidation in the inferolateral right middle lobe with associated right middle lobe volume loss which is most likely atelectasis. Right middle lobe pneumonia is an alternative diagnostic possibility if there are signs/symptoms of
pulmonary infection.
� Continue antibiotics, possible community acquired PNA
#Generalized weakness
� Likely in the setting of metabolic encephalopathy, possible UTI, pneumonia
� UA suggestive of possible infection, urine culture pending
� Continue antibiotics
#ESRD on dialysis
� Nephrology following
� Patient on hemodialysis this a.m.
� Plan for hemodialysis tomorrow?
#Hypotension, chronic
� Patient notes has been hypotensive for the past few months, is following up with his PCP
� Midodrine as needed
#Chronic pancytopenia/history of multiple myeloma/AL amyloidosis
� Stable
� Continue home meds
#CAD
- History of multiple stents
#HFrEF on Imdur
#Asthma
� Stable
� No wheezing on exam
#Anxiety
#Gout
# Hyperlipidemia
Anticipated Discharge: 24 - 48 hours
Subjective/Interval History
-
Date of Service: April 20, 2024
Objective Data
-
Labs:
Laboratory Results
04/20/24
04:54
WBC 3.6 L
Hgb 10.3 L
Hct 32.2 L
Plt Count 119 L
Sodium 135
Potassium 3.7
Chloride 99
Carbon Dioxide 26
BUN 33 H
Creatinine 3.3 H
Glucose 86
Calcium 7.9 L
Vital Signs:
Vital Signs
Temp Pulse Resp BP Pulse Ox
98.5 F 61 17 98/62 96
04/20/24 07:22 04/20/24 07:22 04/20/24 07:22 04/20/24 07:22 04/20/24 08:00
I&O
04/19/24 04/20/24 04/21/24
06:59 06:59 06:59
Intake Total 220 / 220
Output Total 250 / 250
Balance -30 / -30
Review of Systems
-
History Source: Patient
Constitutional: Reports Weakness
EENT: Reports No Symptoms Reported
Respiratory: Reports No Symptoms
Cardiac: Reports No Symptoms
Abdomen/GI: Reports No Symptoms
Breast: Reports No Symptoms
Genitourinary: Reports No Symptoms
Musculoskeletal: Reports Muscle Weakness
Skin: Reports No Symptoms
Neuro: Reports Weakness
Endocrine: Reports No Symptoms
Hematologic / Lymphatic: Reports No Symptoms
Allergy / Immunology: Reports No Symptoms
Physical Exam
-
General: No Apparent Distress, Comfortable, Appears Chronically Ill and Cachectic
HEENT: Normocephalic
Respiratory: Decreased Breath Sounds
Cardiac: Regular Rhythm and S1/S2
GI: Soft, Nontender, Nondistended and Normal Bowel Sounds
Genito-urinary: No Costovertebral Tender
Musculoskeletal: No Clubbing, No Cyanosis and No Edema
Skin: Dry
Neuro: Awake, Alert and Oriented
Hematologic / Lymphatic: No Lymphadenopathy
Psych: Calm
--- NOTE | 2024-04-20 14:38 | W.PN.NEPH.PH ---
Today's Communication / Plan
-
HD tomorrow
Assessment/Plan
-
Impression:
sob unclear cause
Possible PNA
metabolic encephalopathy, possible UTI
Generalized weakness
End-stage renal disease Sunday [place] unit
Recurrent left pleural effusion, s/p multiple thoracentesis s/p recent pleurodesis?
Anemia
Coronary artery disease with multiple stents
Atrial fibrillation
Heart failure reduced ejection fraction
Left AVF
AL amyloidosis/multiple myeloma
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
chronic pancytopenia
Asthma, mild intermittent
Anxiety
Gout
Hyperlipidemia
mild hyponatremia
Plan:
A/w sob, CT chest possible pNA
missed HD on Sunday, completed 3hr HD today
AVF functions well
mild improvement of sob
he seem to have muscle jerking, tremors reports new since last few days
abx per primary
cont lasix BID
over all he seem to have FTT
BP stable,prn midodrine
d/w pt and family
HD tomorrow
-
-
Date of Service: April 20, 2024
CC / HPI / ROS
-
Chief Complaint:
ESRD
History of Present Illness:
tolerated HD just now
improving SOB after HD
BP marginal
no fever
Review of Systems:
no CP
tremors new for last few days
sob better
no n/v
Labs
-
Labs:
WBC 3.6 10^3/uL (4.8-10.8) L 04/20/24 04:54
RBC 3.84 10^6/uL (4.70-6.10) L 04/20/24 04:54
Hgb 10.3 g/dL (13.0-18.0) L 04/20/24 04:54
Hct 32.2 % (39.0-52.0) L 04/20/24 04:54
Plt Count 119 10^3/uL (130-400) L 04/20/24 04:54
Sodium 135 mmol/L (135-145) 04/20/24 04:54
Potassium 3.7 mmol/L (3.5-5.1) 04/20/24 04:54
Chloride 99 mmol/L (98-107) 04/20/24 04:54
Carbon Dioxide 26 mmol/L (22-30) 04/20/24 04:54
BUN 33 mg/dl (9-20) H 04/20/24 04:54
Creatinine 3.3 mg/dL (0.7-1.3) H 04/20/24 04:54
eGFR 18.85 04/20/24 04:54
Glucose 86 mg/dl (70-99) 04/20/24 04:54
Calcium 7.9 mg/dl (8.4-10.2) L 04/20/24 04:54
Albumin 3.5 g/dl (3.5-5.0) 04/19/24 11:00
Physical Exam
-
Vital Signs:
Vital Signs
Temp Pulse Resp BP Pulse Ox
98.5 F 61 17 98/62 96
04/20/24 07:22 04/20/24 07:22 04/20/24 07:22 04/20/24 07:22 04/20/24 08:00
Cardiovascular:: Regular rate and rhythm
Lung Excursion:: Normal (decreased BS )
Abdomen:: Nontender and Soft
Bowel Sounds:: Normal
Extremity Edema:: None: Bilateral:
Viera Catheter: No
[2024-04-20 15:41] VITALS: BP 134/64
--- NOTE | 2024-04-20 16:34 | CM ---
government program manager reviewed patient's chart and met with patient and patient states that he lives alone in a one story home with one step to enter, patient is independent with adl's and uses a cane with ambulation, patient with ESRD on HD goes to
[facility] in [facility] at 11am. Patient drives himself to HD.
PCP: Dr. Lambert
Pharmacy: [facility] in [place]
Plan Home with outpatient HD from [facility] HD in [place]
[phone]
[2024-04-20] MEDS: ZETIA 10 MG PO (20:51)
[2024-04-20] MEDS: HEPARIN 5000 UNITS SC (20:51)
[2024-04-20] MEDS: RISPERDAL 0.25 MG PO (20:51)
[2024-04-20 23:28] VITALS: BP 125/58
[2024-04-21 06:00] VITALS: BMI 18.6
[2024-04-21 07:44] VITALS: BP 132/65
[2024-04-21] MEDS: ProAmatine 5 MG PO (08:11)
[2024-04-21 09:01] LABS: % Basophils 1.2 % (0-2); % Lymphocytes 15.9 % (20.5-51.1); % Monocytes 14.1 % (1.7-9.3); % Neutrophils 64.8 % (42.2-75.2); Absolute Eosinophils 0.1 10^3/uL (0-0.7); Absolute Lymphocytes 0.5 10^3/uL (1.2-3.4); Absolute Monocytes 0.5 10^3/uL (0.1-0.6); Absolute Neutrophils 2.1 10^3/uL (1.4-6.5); Hematocrit 34.1 % (39.0-52.0); Hemoglobin 10.7 g/dL (13.0-18.0); Mean Corp Hgb Conc. 31.4 g/dL (33.0-37.0); Mean Corpuscular Hgb 26.6 pg (27.0-31.0); Mean Corpuscular Volume 84.8 fL (80.0-94.0); Mean Platelet Volume 11.6 fL (7.4-10.4); Nucleated Red Blood Cells % 0 % (-); Platelet Count 130 10^3/uL (130-400); Red Blood Cell Count 4.02 10^6/uL (4.70-6.10); Red Cell Dist. Width 17.4 % (11.5-14.5); White Blood Cell Count 3.3 10^3/uL (4.8-10.8)
--- NOTE | 2024-04-21 09:27 | W.PN.NEPH.HD ---
Assessment
-
Patient seen on dialysis
Systolic blood pressure 122 at current UF
Progress Note - Hemodialysis
-
Date of Service: April 21, 2024
Duration: 30 minutes and 3 hours
Potassium Bath: 3
Calcium Bath: 2.5
Opti-Dialyzer: 160
Ultrafiltration: Other (1 kg)
Blood Flow: 400
Dialysate Flow: 600
Heparin: 500 x 2
EPO: 2000
[2024-04-21 09:32] LABS: Blood Urea Nitrogen 25 mg/dl (9-20); Calcium 8.6 mg/dl (8.4-10.2); Carbon Dioxide 28 mmol/L (22-30); Chloride 96 mmol/L (98-107); Estimated Creatinine Clearance 21 ml/min; Glucose 90 mg/dl (70-99); Potassium 4.6 mmol/L (3.5-5.1); Sodium 130 mmol/L (135-145); eGFR 25.09
[2024-04-21] MEDS: HEPARIN 500 UNITS IV ×2 (10:02→10:04)
[2024-04-21] MEDS: RETACRIT 2000 UNITS IV (10:03)
[2024-04-21] MEDS: HEPARIN 5000 UNITS SC ×2 (12:44→20:01)
[2024-04-21] MEDS: STERILE WATER FOR INJECTION 10 ML IV (12:45)
[2024-04-21] MEDS: ROCEPHIN 1000 MG IV (12:47)
[2024-04-21] MEDS: IMDUR (EXTENDED RELEASE) 30 MG PO (12:48)
[2024-04-21] MEDS: NEURONTIN 100 MG PO ×3 (12:48→21:29)
[2024-04-21] MEDS: CRESTOR 10 MG PO (12:48)
[2024-04-21] MEDS: FLUSH (NSS) 2 FLUSH IV (12:48)
[2024-04-21] MEDS: VIBRAMYCIN 100 MG PO ×2 (12:49→20:02)
[2024-04-21] MEDS: ZYLOPRIM 100 MG PO (12:49)
[2024-04-21] MEDS: ZOVIRAX 200 MG PO ×2 (12:49→20:02)
[2024-04-21] MEDS: ASPIR LOW (ENTERIC COATED) 81 MG PO (12:49)
[2024-04-21] MEDS: LAMICTAL 100 MG PO ×2 (12:50→20:02)
[2024-04-21 14:00] VITALS: BP 120/59; PULSE 71; O2SAT 99
[2024-04-21 15:15] VITALS: BP 99/52
[2024-04-21 15:31] VITALS: BMI 18.6
--- NOTE | 2024-04-21 17:12 | CM ---
Patient seen at bedside.
Patient goes to HD at [facility], [address] [place] [address] in [place], [place]
PT rec SNF
Discussed options - [facility] SNF referral placed in [facility]
Will need to obtain insurance auth once bed secured.
PLAN: SNF, pending bed availability
--- NOTE | 2024-04-21 17:30 | W.PN.UPDATE ---
Update Note
Progress Note Update
Seen and examined by me independently in collaboration with the medical educator.
Lab data and imaging data reviewed.
Addendum as below :
With hemodialysis he feels improved from his breathing and confusion standpoint. Still feeling a bit weak.
Patient is afebrile and oxygenating is okay but he has focal crackles in the right lower zone. CT of the chest shows a thick band of airspace consolidation in the right middle lobe with right middle lobe volume loss. Difficult to exclude
pneumonia. Will treat as possible pneumonia with empirical antibiotics.
Follow PT report and depending start discharge plan.
--- NOTE | 2024-04-21 18:00 | W.PN.HOSP.TC ---
Today's Communication/Plan
-
PT eval
Hemodialysis today
Continue antibiotics for possible pneumonia
Assessment / Plan
Assessment / Plan
73y/o M with ESRD on HD (left AVF, MWF), HTN, ASCVD on ASA, HFrEF on imdur, MM, recurrent pleural effusion requiring thoracentesis presenting with:
#Shortness of breath
� Now resolved
� Unclear cause, missed recent HD because of weakness
� Chest CT: Small pleural effusion in the inferior left hemithorax with mild surrounding pleural thickening (decreased in size since 01/01/2024). Mild subpleural subsegmental atelectasis and scarring in the basilar segments of the lower lobes. Thick
band of airspace consolidation in the inferolateral right middle lobe with associated right middle lobe volume loss which is most likely atelectasis. Right middle lobe pneumonia is an alternative diagnostic possibility if there are signs/symptoms of
pulmonary infection.
� Continue antibiotics, treat for possible community acquired PNA
� PT eval --> recommend SNF
#Generalized weakness
� Likely in the setting of metabolic encephalopathy, possible pneumonia
� UA suggestive of possible infection, urine culture negative
� Continue antibiotics for possible pneumonia
#ESRD on dialysis
� Nephrology following
� Patient on hemodialysis this a.m.
#Hypotension, chronic
� Patient notes has been hypotensive for the past few months, is following up with his PCP
� Midodrine as needed
� Pressures are stable here
#Chronic pancytopenia/history of multiple myeloma/AL amyloidosis
� Stable
� Continue home meds
#CAD
- History of multiple stents
#HFrEF on Imdur
#Asthma
� Stable
� No wheezing on exam
#Anxiety
#Gout
# Hyperlipidemia
Anticipated Discharge: Within 24 hours
Subjective/Interval History
-
Date of Service: April 21, 2024
Objective Data
-
Labs:
Laboratory Results
04/21/24
08:15
WBC 3.3 L
Hgb 10.7 L
Hct 34.1 L
Plt Count 130
Sodium 130 L
Potassium 4.6
Chloride 96 L
Carbon Dioxide 28
BUN 25 H
Creatinine 2.6 H
Glucose 90
Calcium 8.6
Vital Signs:
Vital Signs
Temp Pulse Resp BP Pulse Ox
97.8 F 77 16 99/52 97
04/21/24 15:15 04/21/24 15:15 04/21/24 15:15 04/21/24 15:15 04/21/24 15:15
I&O
04/20/24 04/21/24 04/22/24
06:59 06:59 06:59
Intake Total 220 / 220 770 / 770 750 / 750
Output Total 250 / 250 200 / 200 80 / 80
Balance -30 / -30 570 / 570 670 / 670
Review of Systems
-
History Source: Patient
Constitutional: Reports Weakness
EENT: Reports No Symptoms Reported
Respiratory: Reports No Symptoms
Cardiac: Reports No Symptoms
Abdomen/GI: Reports No Symptoms
Breast: Reports No Symptoms
Genitourinary: Reports No Symptoms
Musculoskeletal: Reports No Symptoms
Skin: Reports No Symptoms
Neuro: Reports No Symptoms
Endocrine: Reports No Symptoms
Hematologic / Lymphatic: Reports No Symptoms
Allergy / Immunology: Reports No Symptoms
Physical Exam
-
General: No Apparent Distress, Comfortable and Cachectic
HEENT: Normocephalic
Respiratory: Decreased Breath Sounds (Right base)
Cardiac: Regular Rhythm and S1/S2
GI: Soft, Nontender, Nondistended and Normal Bowel Sounds
Genito-urinary: No Costovertebral Tender
Musculoskeletal: No Clubbing, No Cyanosis and No Edema
Skin: Dry
Neuro: Awake, Alert and Oriented
Hematologic / Lymphatic: No Lymphadenopathy
Psych: Calm
[2024-04-21] MEDS: ZETIA 10 MG PO (21:29)
[2024-04-21] MEDS: RISPERDAL 0.25 MG PO (21:30)
[2024-04-21 23:19] VITALS: BP 120/61
[2024-04-22 03:03] VITALS: BMI 17.8
[2024-04-22 05:02] LABS: Hematocrit 32.4 % (39.0-52.0); Mean Corp Hgb Conc. 30.9 g/dL (33.0-37.0); Mean Corpuscular Hgb 26.4 pg (27.0-31.0); Mean Corpuscular Volume 85.5 fL (80.0-94.0); Mean Platelet Volume 10.9 fL (7.4-10.4); Platelet Count 130 10^3/uL (130-400); Red Blood Cell Count 3.79 10^6/uL (4.70-6.10); Red Cell Dist. Width 17.3 % (11.5-14.5); White Blood Cell Count 3.5 10^3/uL (4.8-10.8)
[2024-04-22 05:10] LABS: Blood Urea Nitrogen 23 mg/dl (9-20); Calcium 8.4 mg/dl (8.4-10.2); Carbon Dioxide 32 mmol/L (22-30); Chloride 91 mmol/L (98-107); Estimated Creatinine Clearance 27 ml/min; Glucose 90 mg/dl (70-99); Potassium 4.3 mmol/L (3.5-5.1); Sodium 131 mmol/L (135-145); eGFR 34.38
[2024-04-22 07:18] VITALS: BP 116/60
[2024-04-22] MEDS: CRESTOR 10 MG PO (09:14)
[2024-04-22] MEDS: IMDUR (EXTENDED RELEASE) 30 MG PO (09:14)
[2024-04-22] MEDS: LASIX 80 MG PO (09:14)
[2024-04-22] MEDS: HEPARIN 5000 UNITS SC ×2 (09:14→20:23)
[2024-04-22] MEDS: ZOVIRAX 200 MG PO ×2 (09:14→20:25)
[2024-04-22] MEDS: NEURONTIN 100 MG PO ×2 (09:15→21:46)
[2024-04-22] MEDS: VIBRAMYCIN 100 MG PO ×2 (09:15→20:25)
[2024-04-22] MEDS: LAMICTAL 100 MG PO ×2 (09:15→20:24)
[2024-04-22] MEDS: ASPIR LOW (ENTERIC COATED) 81 MG PO (09:15)
[2024-04-22] MEDS: ZYLOPRIM 100 MG PO (09:15)
--- NOTE | 2024-04-22 09:15 | W.PN.HOSP.TC ---
Addendum entered and electronically signed by Mario Lo MD 04/22/24 15:52:
Seen and examined by me independently in collaboration with the director global medical affairs.
Lab data and imaging data reviewed.
Addendum as below :
Resolved shortness of breath and confusion now with a dialysis but persist to have weakness. He is now recommended to go to rehab because of his weakness.
Will treat the possible pneumonia with antibiotics and if it does not make a difference to his weakness patient advised to follow-up with his hospital chief financial officer as a concern would be any progression of his multiple myeloma causing the symptomatology.
Medically stable for discharge.
Original Note:
Today's Communication/Plan
-
Awaiting SNF placement
Continue Antibiotics
Assessment / Plan
Assessment / Plan
73y/o M with ESRD on HD (left AVF, MWF), HTN, ASCVD on ASA, HFrEF on imdur, MM, recurrent pleural effusion requiring thoracentesis presenting with:
#Shortness of breath
� Now resolved
� Unclear cause, missed recent HD because of weakness
� Chest CT: Small pleural effusion in the inferior left hemithorax with mild surrounding pleural thickening (decreased in size since 01/01/2024). Mild subpleural subsegmental atelectasis and scarring in the basilar segments of the lower lobes. Thick
band of airspace consolidation in the inferolateral right middle lobe with associated right middle lobe volume loss which is most likely atelectasis. Right middle lobe pneumonia is an alternative diagnostic possibility if there are signs/symptoms of
pulmonary infection.
� Continue antibiotics, treat for possible community acquired PNA
� PT eval --> recommend SNF
- manager combination working on SNF placement
#Generalized weakness
� Likely in the setting of metabolic encephalopathy, possible pneumonia
� UA suggestive of possible infection, urine culture negative
� Continue antibiotics for possible pneumonia
#ESRD on dialysis
� Nephrology following
� Patient on hemodialysis this a.m.
#Hypotension, chronic
� Patient notes has been hypotensive for the past few months, is following up with his PCP
� Midodrine as needed
� Pressures are stable here
#Chronic pancytopenia/history of multiple myeloma/AL amyloidosis
� Stable
� Continue home meds
#CAD
- History of multiple stents
#HFrEF on Imdur
#Asthma
� Stable
� No wheezing on exam
#Anxiety
#Gout
# Hyperlipidemia
Anticipated Discharge: Within 24 hours
Subjective/Interval History
-
Date of Service: April 22, 2024
Objective Data
-
Labs:
Laboratory Results
04/22/24
04:26
WBC 3.5 L
Hgb 10.0 L
Hct 32.4 L
Plt Count 130
Sodium 131 L
Potassium 4.3
Chloride 91 L
Carbon Dioxide 32 H
BUN 23 H
Creatinine 2.0 H
Glucose 90
Calcium 8.4
Vital Signs:
Vital Signs
Temp Pulse Resp BP Pulse Ox
98.6 F 60 18 116/60 97
04/22/24 07:18 04/22/24 07:18 04/22/24 07:18 04/22/24 07:18 04/22/24 07:18
I&O
04/21/24 04/22/24 04/23/24
06:59 06:59 06:59
Intake Total 770 / 770 990 / 990
Output Total 200 / 200 230 / 230
Balance 570 / 570 760 / 760
Review of Systems
-
History Source: Patient
Constitutional: Reports Weight Loss and Weakness
EENT: Reports No Symptoms Reported
Respiratory: Reports No Symptoms
Cardiac: Reports No Symptoms
Abdomen/GI: Reports No Symptoms
Breast: Reports No Symptoms
Genitourinary: Reports No Symptoms
Musculoskeletal: Reports Muscle Weakness
Skin: Reports No Symptoms
Neuro: Reports No Symptoms
Endocrine: Reports No Symptoms
Hematologic / Lymphatic: Reports No Symptoms
Allergy / Immunology: Reports No Symptoms
Physical Exam
-
General: No Apparent Distress, Comfortable and Cachectic
HEENT: Normocephalic
Respiratory: Decreased Breath Sounds
Cardiac: Regular Rhythm and S1/S2
GI: Soft, Nontender, Nondistended and Normal Bowel Sounds
Genito-urinary: No Costovertebral Tender
Musculoskeletal: No Clubbing, No Cyanosis and No Edema
Skin: Warm and Dry
Neuro: Awake, Alert and Oriented
Hematologic / Lymphatic: No Lymphadenopathy
Psych: Calm
[2024-04-22] MEDS: OMNICEF 300 MG PO (10:15)
--- NOTE | 2024-04-22 12:17 | W.PN.NEPH.PH ---
Today's Communication / Plan
-
Dialysis tomorrow
Weight sis down substantially
Assessment/Plan
-
Impression:
sob unclear cause
Possible PNA
metabolic encephalopathy, possible UTI
Generalized weakness
End-stage renal disease [facility] [place] [facility]
Recurrent left pleural effusion, s/p multiple thoracentesis s/p recent pleurodesis?
Anemia
Coronary artery disease with multiple stents
Atrial fibrillation
Heart failure reduced ejection fraction
Left AVF
AL amyloidosis/multiple myeloma
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
chronic pancytopenia
Asthma, mild intermittent
Anxiety
Gout
Hyperlipidemia
mild hyponatremia
Plan:
Dialysis tomorrow, orders provided
Awaiting SNF placement
AVF functions well
abx per primary
Orthostasis remains problematic but not solvable
over all he seem to have FTT
BP stable,prn midodrine
-
-
Date of Service: April 22, 2024
CC / HPI / ROS
-
Chief Complaint:
ESRD
History of Present Illness:
ESRD MWF
improving SOB after HD
BP low labile
Review of Systems:
no CP
weights down
sob better
no n/v
Labs
-
Labs:
WBC 3.5 10^3/uL (4.8-10.8) L 04/22/24 04:26
RBC 3.79 10^6/uL (4.70-6.10) L 04/22/24 04:26
Hgb 10.0 g/dL (13.0-18.0) L 04/22/24 04:26
Hct 32.4 % (39.0-52.0) L 04/22/24 04:26
Plt Count 130 10^3/uL (130-400) 04/22/24 04:26
Sodium 131 mmol/L (135-145) L 04/22/24 04:26
Potassium 4.3 mmol/L (3.5-5.1) 04/22/24 04:26
Chloride 91 mmol/L (98-107) L 04/22/24 04:26
Carbon Dioxide 32 mmol/L (22-30) H 04/22/24 04:26
BUN 23 mg/dl (9-20) H 04/22/24 04:26
Creatinine 2.0 mg/dL (0.7-1.3) H 04/22/24 04:26
eGFR 34.38 04/22/24 04:26
Glucose 90 mg/dl (70-99) 04/22/24 04:26
Calcium 8.4 mg/dl (8.4-10.2) 04/22/24 04:26
Albumin 3.5 g/dl (3.5-5.0) 04/19/24 11:00
Physical Exam
-
Vital Signs:
Vital Signs
Temp Pulse Resp BP Pulse Ox
98.6 F 60 18 116/60 97
04/22/24 07:18 04/22/24 09:14 04/22/24 07:18 04/22/24 09:14 04/22/24 07:18
Cardiovascular:: Regular rate and rhythm
Lung Excursion:: Normal (decreased BS )
Abdomen:: Nontender and Soft
Bowel Sounds:: Normal
Extremity Edema:: None: Bilateral:
Viera Catheter: No
[2024-04-22 12:28] VITALS: BP 89/46; BP 99/54
--- NOTE | 2024-04-22 13:12 | CM ---
Patient seen at bedside with daughter Chanda
PT rec SNF
[facility] SNF has no dialysis chairs
Patient had been on HD at [facility] (drove self)
CM called [facility] to inquire SNF's in that area to see if they would transport patient from SNF to HD.
SNF's given to CM were [facility] ([place], [place] ([place], [place])
CM called & LM for Admissions DON at both facilities. Will await call back.
CM will also need to obtain insurance auth
PLAN: SNF, pending bed availability-will need ins auth
[2024-04-22] MEDS: STERILE WATER FOR INJECTION 10 ML IV (14:20)
[2024-04-22] MEDS: ROCEPHIN 1000 MG IV (14:20)
[2024-04-22 15:40] VITALS: BP 102/55
[2024-04-22] MEDS: NEURONTIN PO (17:05)
[2024-04-22] MEDS: RISPERDAL 0.25 MG PO (21:46)
[2024-04-22] MEDS: ZETIA 10 MG PO (21:47)
[2024-04-22 23:45] VITALS: BP 143/58
[2024-04-23] MEDS: ASPIR LOW (ENTERIC COATED) 81 MG PO (07:29)
[2024-04-23] MEDS: CRESTOR 10 MG PO (07:29)
[2024-04-23] MEDS: LAMICTAL 100 MG PO ×2 (07:29→20:19)
[2024-04-23] MEDS: NEURONTIN 100 MG PO ×3 (07:29→22:22)
[2024-04-23] MEDS: VIBRAMYCIN 100 MG PO ×2 (07:30→20:19)
[2024-04-23] MEDS: ProAmatine 10 MG PO (07:30)
[2024-04-23] MEDS: HEPARIN 5000 UNITS SC ×2 (07:30→20:19)
[2024-04-23] MEDS: IMDUR (EXTENDED RELEASE) 30 MG PO (07:30)
[2024-04-23] MEDS: ZYLOPRIM 100 MG PO (07:31)
[2024-04-23] MEDS: ZOVIRAX 200 MG PO ×2 (07:31→20:19)
[2024-04-23 07:42] VITALS: BMI 18.0
[2024-04-23 07:45] VITALS: BP 127/63
[2024-04-23 07:51] LABS: Hematocrit 31.4 % (39.0-52.0); Hemoglobin 9.9 g/dL (13.0-18.0); Mean Corp Hgb Conc. 31.5 g/dL (33.0-37.0); Mean Corpuscular Hgb 26.7 pg (27.0-31.0); Mean Corpuscular Volume 84.6 fL (80.0-94.0); Mean Platelet Volume 11.4 fL (7.4-10.4); Platelet Count 121 10^3/uL (130-400); Red Blood Cell Count 3.71 10^6/uL (4.70-6.10); Red Cell Dist. Width 17.2 % (11.5-14.5); White Blood Cell Count 2.9 10^3/uL (4.8-10.8)
--- NOTE | 2024-04-23 08:25 | W.PN.HOSP.TC ---
Today's Communication/Plan
-
Awaiting SNF placement
Dialysis today
Cefdinir once after dialysis
Assessment / Plan
Assessment / Plan
73y/o M with ESRD on HD (left AVF, MWF), HTN, ASCVD on ASA, HFrEF on imdur, MM, recurrent pleural effusion requiring thoracentesis presenting with:
#Shortness of breath
� Now resolved
� Unclear cause, missed recent HD because of weakness
� Chest CT: Small pleural effusion in the inferior left hemithorax with mild surrounding pleural thickening (decreased in size since 01/01/2024). Mild subpleural subsegmental atelectasis and scarring in the basilar segments of the lower lobes. Thick
band of airspace consolidation in the inferolateral right middle lobe with associated right middle lobe volume loss which is most likely atelectasis. Right middle lobe pneumonia is an alternative diagnostic possibility if there are signs/symptoms of
pulmonary infection.
� Continue antibiotics, treat for possible community acquired PNA - likely Strep Pneumoniae
� PT eval --> recommend SNF
- Awaiting SNF placement
#Generalized weakness
� Likely in the setting of metabolic encephalopathy, possible pneumonia
� UA suggestive of possible infection, urine culture negative
� Continue antibiotics for possible pneumonia
# Cachexia
- Recent weight loss due to decreased appetite
- Moderate Protein Calorie Malnutrition
#ESRD on dialysis
� Nephrology following
� Patient on hemodialysis this a.m.
#Hypotension, chronic
� Patient notes has been hypotensive for the past few months, is following up with his PCP
� Midodrine as needed
� Pressures are stable here
#Chronic pancytopenia/history of multiple myeloma/AL amyloidosis
� Stable
� Continue home meds
#CAD
- History of multiple stents
#HFrEF on Imdur
#Asthma
� Stable
� No wheezing on exam
#Anxiety
#Gout
# Hyperlipidemia
Anticipated Discharge: Within 24 hours
Subjective/Interval History
-
Date of Service: April 23, 2024
Objective Data
-
Labs:
Laboratory Results
04/23/24
06:44
WBC 2.9 L
Hgb 9.9 L
Hct 31.4 L
Plt Count 121 L
Sodium Pending
Potassium Pending
Chloride Pending
Carbon Dioxide Pending
BUN Pending
Creatinine Pending
Glucose Pending
Calcium Pending
Vital Signs:
Vital Signs
Temp Pulse Resp BP Pulse Ox
98.2 F 60 18 127/63 100
04/23/24 07:45 04/23/24 07:45 04/23/24 07:45 04/23/24 07:45 04/23/24 07:45
I&O
04/22/24 04/23/24 04/24/24
06:59 06:59 06:59
Intake Total 990 / 990 806 / 806
Output Total 230 / 230
Balance 760 / 760 806 / 806
Physical Exam
-
General: Well Developed, No Apparent Distress, Comfortable, Appears Chronically Ill and Cachectic
HEENT: Normocephalic
Respiratory: Decreased Breath Sounds
Cardiac: Regular Rhythm and S1/S2
GI: Soft, Nontender, Nondistended and Normal Bowel Sounds
Genito-urinary: No Costovertebral Tender
Musculoskeletal: No Clubbing, No Cyanosis and No Edema
Skin: Dry
Neuro: Awake, Alert, Oriented and AO x 3
Hematologic / Lymphatic: No Lymphadenopathy
Psych: Calm
[2024-04-23 08:30] LABS: Blood Urea Nitrogen 37 mg/dl (9-20); Calcium 8.4 mg/dl (8.4-10.2); Carbon Dioxide 29 mmol/L (22-30); Chloride 92 mmol/L (98-107); Estimated Creatinine Clearance 20 ml/min; Glucose 69 mg/dl (70-99); Potassium 4.8 mmol/L (3.5-5.1); Sodium 130 mmol/L (135-145); eGFR 23.98
[2024-04-23] MEDS: MANNITOL 25% 12.5 GRAMS IV ×2 (08:35→09:37)
[2024-04-23] MEDS: HEPARIN 500 UNITS IV ×2 (09:09→09:10)
[2024-04-23] MEDS: RETACRIT 2000 UNITS IV (09:10)
--- NOTE | 2024-04-23 09:24 | PN.CDI ---
CDI
- -
CDI:
Physician Documentation Request
Admit Date: 04/21/24 15:19
Dear Doctor Wally/ Resident,
Please review the following and provide your response in the progress notes.
Clinical Indicators:
Pt admitted with weakness /Metabolic Encephalopathy /Possible PNA
Documented in progress notes 04/21 &04/22, ' Right middle lobe pneumonia is an alternative diagnostic possibility if there are signs/symptoms of pulmonary infection. Continue antibiotics, treat for possible community acquired PNA...'
Pt treated with with Rocephin/Cefdinir
Based on the above, could you clarify in the Progress Notes further specificity regarding the known, suspected or likely type of pneumonia you are treating (recognizing the specific organism may not be known)?
Examples
Aspiration Pneumonia - indicate substance such as food or vomitus, oils or other solids or liquids
Staph Pneumonia - indicate if MRSA or MSSA
Strep Pneumonia - indicate if strep B, strep pneumoniae or other type
Gram negative Pneumonia - indicate if Pseudomonas, Klebsiella or other
Other type ( please specify)
Use of terms such as suspected, likely, concern for, or probable (associated with a specific diagnosis that is being evaluated, monitored, or treated as if it exists) are acceptable and can be coded in the inpatient setting, when documented at the
time of discharge.
Thank you,
Elif Campbell RN
CDI Specialist
[place] [facility]
Please use your independent medical judgment in providing your response.
--- NOTE | 2024-04-23 09:38 | PN.CDI ---
CDI
- -
CDI:
Physician Documentation Request
Admit Date: 04/21/24 15:19
Dear Doctor Wally/Resident ,
Please review the following and provide your response in the progress notes.
Clinical Indicators:
Pt admitted with weakness /Metabolic Encephalopathy /Possible PNA
Documented in the record Cachexia/BMI 18.0
Nutrition consult 2/3,' CBW 133 lbs 4.8 oz BMI 18.6 underweight (2/3). As per nutrition screening at admission pt reported recent unintentional wt loss and decreased intakes due to poor appetite. External medical summary lists wt as 141 lbs on
01/31/24. Per previous visit pt's wt was 163 lbs 9 oz on 11/04/23-18% wt loss within 6 months is significant.As per ASPEN/AND pt meets criteria for moderate protein calorie malnutrition in the context of chronic illness with <75% of energy
requirements met for >or= 1 month, 18% wt loss within 6 months, and NFPE findings of mild buccal and shoulder muscle wasting.'
Based on the above information and your assessment, which of the following most accurately represents the patient's nutritional status?
Moderate Protein Calorie Malnutrition
Other (please specify)
Addy Criteria (ACP Hospitalist 2017)
2 or more criteria must be present for either
non severe or severe malnutrition
Note that the criteria differs related to the
presence of an acute or chronic illness
Acute Illness Chronic Illness
Energy Intake Non Severe: <75% for >7 days Non Severe: <75% for >1 month
Severe: <50% for >5 days Severe: <75% for >1 month
Weight Loss Non Severe: 1-2% over 1 week Non Severe: 5% over 1 month
5% over 1 month 7.5% over 3 months
7.5% over 3 months 10% over 6 months
1 year N/A 20% over 1 year
Severe: >2% over 1 week Severe: >5% over 1 month
>5% over 1 month >7.5% over 3 months
>7.5% over 3 months >10% over 6 months
1 year N/A >20% over 1 year
Body Fat Non Severe: Mild Decrease Non Severe: Mild Loss
Severe: Moderate Decrease Severe: Severe Loss
Muscle Mass Non Severe: Mild Decrease Non Severe: Mild Loss
Severe: Moderate Decrease Severe: Severe Loss
Fluid Accumulation Non Severe: Mild Accumulation Non Severe: Mild Accumulation
Severe: Moderate to severe Severe: Moderate to severe
accumulation accumulation
Reduced Clinical Documentation Manager Strength Non Severe: N/A Non Severe: N/A
Severe: Measurably reduced Severe: Measurably reduced
Use of terms such as suspected, likely, concern for, or probable (associated with a specific diagnosis that is being evaluated, monitored, or treated as if it exists) are acceptable and can be coded in the inpatient setting, when documented at the
time of discharge.
Thank you,
Elif Campbell RN
CDI Specialist
[place] [facility]
Please use your independent medical judgment in providing your response.
--- NOTE | 2024-04-23 10:53 | W.PN.NEPH.HD ---
Assessment
-
pt seen during HD
vitals stable s/p midodrine
UF as tolerates
suspect lost DW, establishing new EDW
AVF functions fine
Await SNF placement
Progress Note - Hemodialysis
-
Date of Service: April 23, 2024
Duration: 30 minutes and 3 hours
Potassium Bath: 3
Calcium Bath: 2.5
Opti-Dialyzer: 160
Ultrafiltration: Other (1-1..5kg)
Blood Flow: 400
Dialysate Flow: 600
Heparin: yesx2
EPO: 2000
--- NOTE | 2024-04-23 12:31 | CM ---
Spoke with Ela ([phone]) at [facility] in [place], [place]
She stated their SNF provides transport to dialysis to [facility]. Patient has Dialysis M-W-F chair time at 11am at [place], [place] [phone]
Referral added in [facility] for SNF - discussed with patient - agreeable
PLAN: SNF, pending bed availability, will need to obtain ins auth
[2024-04-23] MEDS: OMNICEF 300 MG PO (14:10)
[2024-04-23 15:39] VITALS: BP 133/58
[2024-04-23 15:58] VITALS: BP 113/61; PULSE 72
--- NOTE | 2024-04-23 16:19 | W.PN.UPDATE ---
Update Note
Progress Note Update
Seen and examined by me independently in collaboration with the medical assistant secretary.
Lab data and imaging data reviewed.
Addendum as below :
Remains medically stable for discharge. Await placement.
[2024-04-23] MEDS: RISPERDAL 0.25 MG PO (22:22)
[2024-04-23] MEDS: ZETIA 10 MG PO (22:22)
[2024-04-23 23:14] VITALS: BP 114/58
[2024-04-24 05:49] LABS: % Basophils 1.7 % (0-2); % Eosinophils 4.3 % (0-6); % Immature Granulocytes 0.3 % (0-0.5); % Lymphocytes 14.2 % (20.5-51.1); % Monocytes 10.4 % (1.7-9.3); % Neutrophils 69.1 % (42.2-75.2); Absolute Basophils 0.1 10^3/uL (0-0.2); Absolute Eosinophils 0.2 10^3/uL (0-0.7); Absolute Lymphocytes 0.5 10^3/uL (1.2-3.4); Absolute Monocytes 0.4 10^3/uL (0.1-0.6); Absolute Neutrophils 2.4 10^3/uL (1.4-6.5); Hematocrit 31.9 % (39.0-52.0); Mean Corp Hgb Conc. 31.3 g/dL (33.0-37.0); Nucleated Red Blood Cells % 0 % (-); Platelet Count 124 10^3/uL (130-400); Red Blood Cell Count 3.71 10^6/uL (4.70-6.10); White Blood Cell Count 3.5 10^3/uL (4.8-10.8)
[2024-04-24 06:00] VITALS: BMI 18.9
[2024-04-24 06:09] LABS: Blood Urea Nitrogen 22 mg/dl (9-20); Calcium 8.5 mg/dl (8.4-10.2); Carbon Dioxide 30 mmol/L (22-30); Chloride 96 mmol/L (98-107); Estimated Creatinine Clearance 26 ml/min; Glucose 84 mg/dl (70-99); Potassium 4.3 mmol/L (3.5-5.1); Sodium 133 mmol/L (135-145); eGFR 32.42
[2024-04-24 08:03] VITALS: BP 128/64
[2024-04-24] MEDS: ZOVIRAX 200 MG PO ×2 (08:49→19:55)
[2024-04-24] MEDS: IMDUR (EXTENDED RELEASE) 30 MG PO (08:49)
[2024-04-24] MEDS: ASPIR LOW (ENTERIC COATED) 81 MG PO (08:49)
[2024-04-24] MEDS: VIBRAMYCIN 100 MG PO ×2 (08:49→19:56)
[2024-04-24] MEDS: NEURONTIN 100 MG PO ×3 (08:49→21:46)
[2024-04-24] MEDS: LAMICTAL 100 MG PO ×2 (08:49→19:56)
[2024-04-24] MEDS: LASIX 80 MG PO (08:49)
[2024-04-24] MEDS: CRESTOR 10 MG PO (08:49)
[2024-04-24] MEDS: ZYLOPRIM 100 MG PO (08:50)
[2024-04-24] MEDS: HEPARIN 5000 UNITS SC ×2 (08:50→19:56)
--- NOTE | 2024-04-24 08:51 | W.PN.HOSP.TC ---
Today's Communication/Plan
-
Discharge pt on home anti-biotics
Assessment / Plan
Assessment / Plan
73y/o M with ESRD on HD (left AVF, MWF), HTN, ASCVD on ASA, HFrEF on imdur, MM, recurrent pleural effusion requiring thoracentesis presenting with:
#Shortness of breath
� Now resolved
� Unclear cause, missed recent HD because of weakness
� Chest CT: Small pleural effusion in the inferior left hemithorax with mild surrounding pleural thickening (decreased in size since 01/01/2024). Mild subpleural subsegmental atelectasis and scarring in the basilar segments of the lower lobes. Thick
band of airspace consolidation in the inferolateral right middle lobe with associated right middle lobe volume loss which is most likely atelectasis. Right middle lobe pneumonia is an alternative diagnostic possibility if there are signs/symptoms of
pulmonary infection.
� Treat for possible community acquired PNA - likely Strep Pneumoniae
- Discharge to SNF on oral antibiotics
� PT eval --> recommend SNF
- Awaiting SNF placement
#Generalized weakness
� Likely in the setting of metabolic encephalopathy, possible pneumonia
� UA suggestive of possible infection, urine culture negative
� Continue antibiotics for possible pneumonia -> transition to PO
# Cachexia
- Recent weight loss due to decreased appetite
- Moderate Protein Calorie Malnutrition
#ESRD on dialysis
� Nephrology following
� Patient on hemodialysis sun, sun, sun
#Hypotension, chronic
� Patient notes has been hypotensive for the past few months, is following up with his PCP
� Midodrine as needed
� Pressures are stable here
#Chronic pancytopenia/history of multiple myeloma/AL amyloidosis
� Stable
� Continue home meds
#CAD
- History of multiple stents
#HFrEF on Imdur
#Asthma
� Stable
� No wheezing on exam
#Anxiety
#Gout
# Hyperlipidemia
Anticipated Discharge: Today
Subjective/Interval History
-
Date of Service: April 24, 2024
Patient states he feels fine. Much better than yesterday.
Objective Data
-
Labs:
Laboratory Results
04/24/24
05:30
WBC 3.5 L
Hgb 10.0 L
Hct 31.9 L
Plt Count 124 L
Sodium 133 L
Potassium 4.3
Chloride 96 L
Carbon Dioxide 30
BUN 22 H
Creatinine 2.1 H
Glucose 84
Calcium 8.5
Vital Signs:
Vital Signs
Temp Pulse Resp BP Pulse Ox
98.6 F 66 14 128/64 98
04/24/24 08:03 04/24/24 08:03 04/24/24 08:03 04/24/24 08:03 04/24/24 08:03
I&O
04/23/24 04/24/24 04/25/24
06:59 06:59 06:59
Intake Total 806 / 806 1020 / 1020
Output Total 400 / 400
Balance 806 / 806 620 / 620
Review of Systems
-
History Source: Patient
Constitutional: Reports Fatigue and Weakness
Respiratory: Reports No Symptoms
Cardiac: Reports No Symptoms
Abdomen/GI: Reports No Symptoms
Genitourinary: Reports No Symptoms
Musculoskeletal: Reports No Symptoms
Neuro: Reports No Symptoms
Physical Exam
-
General: No Apparent Distress, Comfortable, Appears Chronically Ill and Cachectic
HEENT: Normocephalic
Respiratory: Decreased Breath Sounds
Cardiac: Irregular Rhythm
GI: Soft and Nontender
Musculoskeletal: No Edema
Skin: Warm
Neuro: AO x 3
Psych: Calm
--- NOTE | 2024-04-24 09:17 | CM ---
Addendum entered by Belinda Umanzor 04/24/24 16:28:
CM called to Ela as email did not go through. VM left.
Addendum entered by Belinda Umanzor 04/24/24 14:23:
All information emailed securely to Ela. CM will continue to follow for discharge planning needs.
Addendum entered by Belinda Umanzor 04/24/24 14:00:
Ela called back and provided NPI#[id number] facility and NPI of accepting Physician Dr. Banegas NPI #[id number]. CM will email to her [email or web address] when auth received. Pending reference number is [id number]. CM will continue to follow
for discharge planning needs.
Original Note:
VM left for facility in [facility] and on cell phone for Ela requesting NPI numbers for auth to be started as facility accepted patient on [facility]. as soon as information available CM will start auth request.
--- NOTE | 2024-04-24 10:31 | W.PN.UPDATE ---
Update Note
Progress Note Update
Seen and examined by me independently in collaboration with the medical physiologist.
Lab data and imaging data reviewed.
Addendum as below :
Patient had an episode of emesis without abdominal pain. No diarrhea or constipation. No fever chills.
He otherwise feels okay. Denies any shortness of breath. No further confusion.
Abdomen benign.
Unclear if emesis related to antibiotic.
Stable for dc to rehab when bed available.
--- NOTE | 2024-04-24 12:37 | W.PN.NEPH.PH ---
Today's Communication / Plan
-
HD tomorrow
Assessment/Plan
-
Impression:
sob unclear cause
Possible PNA
metabolic encephalopathy, possible UTI
Generalized weakness
End-stage renal disease [facility] [place] unit
Recurrent left pleural effusion, s/p multiple thoracentesis s/p recent pleurodesis?
Anemia
Coronary artery disease with multiple stents
Atrial fibrillation
Heart failure reduced ejection fraction
Left AVF
AL amyloidosis/multiple myeloma
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
chronic pancytopenia
Asthma, mild intermittent
Anxiety
Gout
Hyperlipidemia
mild hyponatremia
Plan:
Dialysis tomorrow
Awaiting SNF placement
AVF functions well
abx per primary
Orthostasis remains problematic but not solvable
BP stable,prn midodrine
-
-
Date of Service: April 24, 2024
CC / HPI / ROS
-
Chief Complaint:
ESRD
History of Present Illness:
ESRD MWF
improving SOB after HD, on RA
BP stable
Review of Systems:
no CP
weights down
sob better
vomited this am
Labs
-
Labs:
WBC 3.5 10^3/uL (4.8-10.8) L 04/24/24 05:30
RBC 3.71 10^6/uL (4.70-6.10) L 04/24/24 05:30
Hgb 10.0 g/dL (13.0-18.0) L 04/24/24 05:30
Hct 31.9 % (39.0-52.0) L 04/24/24 05:30
Plt Count 124 10^3/uL (130-400) L 04/24/24 05:30
Sodium 133 mmol/L (135-145) L 04/24/24 05:30
Potassium 4.3 mmol/L (3.5-5.1) 04/24/24 05:30
Chloride 96 mmol/L (98-107) L 04/24/24 05:30
Carbon Dioxide 30 mmol/L (22-30) 04/24/24 05:30
BUN 22 mg/dl (9-20) H 04/24/24 05:30
Creatinine 2.1 mg/dL (0.7-1.3) H 04/24/24 05:30
eGFR 32.42 04/24/24 05:30
Glucose 84 mg/dl (70-99) 04/24/24 05:30
Calcium 8.5 mg/dl (8.4-10.2) 04/24/24 05:30
Albumin 3.5 g/dl (3.5-5.0) 04/19/24 11:00
Physical Exam
-
Vital Signs:
Vital Signs
Temp Pulse Resp BP Pulse Ox
98.6 F 66 14 128/64 98
04/24/24 08:03 04/24/24 08:49 04/24/24 08:03 04/24/24 08:49 04/24/24 10:26
Cardiovascular:: Regular rate and rhythm
Lung Excursion:: Normal (decreased BS )
Abdomen:: Nontender and Soft
Bowel Sounds:: Normal
Extremity Edema:: None: Bilateral:
Viera Catheter: No
[2024-04-24 15:30] VITALS: BP 134/65
[2024-04-24] MEDS: SENOKOT-S 1 TABLET PO (21:46)
[2024-04-24] MEDS: RISPERDAL 0.25 MG PO (21:46)
[2024-04-24] MEDS: ZETIA 10 MG PO (21:46)
[2024-04-24 23:25] VITALS: BP 158/128
[2024-04-24 23:34] VITALS: BP 110/62
[2024-04-25 05:05] VITALS: BMI 18.2
[2024-04-25 07:44] VITALS: BP 122/66
[2024-04-25] MEDS: HEPARIN 500 UNITS IV ×2 (08:10→09:04)
--- NOTE | 2024-04-25 08:10 | W.PN.HOSP.TC ---
Addendum entered and electronically signed by Mario Lo MD 04/25/24 13:59:
Seen and examined by me independently in collaboration with the medical practitioners.
Lab data and imaging data reviewed.
Addendum as below :
Remains asymptomatic. Had hemodialysis without events.
Medically stable for discharge to rehab today.
Total time of discharge 35 minutes
Original Note:
Today's Communication/Plan
-
Discharge to [place] today after hemodialysis
Outpt follow-up with oncology if needed
Assessment / Plan
Assessment / Plan
73y/o M with ESRD on HD (left AVF, MWF), HTN, ASCVD on ASA, HFrEF on imdur, MM, recurrent pleural effusion requiring thoracentesis presenting with:
#Shortness of breath
� Now resolved
� Unclear cause, missed recent HD because of weakness
� Chest CT: Small pleural effusion in the inferior left hemithorax with mild surrounding pleural thickening (decreased in size since 01/01/2024). Mild subpleural subsegmental atelectasis and scarring in the basilar segments of the lower lobes. Thick
band of airspace consolidation in the inferolateral right middle lobe with associated right middle lobe volume loss which is most likely atelectasis. Right middle lobe pneumonia is an alternative diagnostic possibility if there are signs/symptoms of
pulmonary infection.
� Treat for possible community acquired PNA - likely Strep Pneumoniae
� Discharge to SNF on Cefdinir
� PT eval --> recommend SNF
� SNF approved - discharge today
#Generalized weakness
� Likely in the setting of metabolic encephalopathy, possible pneumonia
� UA suggestive of possible infection, urine culture negative
� Completed course of treatment with Doxycycline
� Last dose of cefdinir on Sunday after dialysis
#Cachexia
- Recent weight loss due to decreased appetite
- Moderate Protein Calorie Malnutrition
#ESRD on dialysis
� Nephrology following
� Hemodialysis today
� Patient on hemodialysis sun, sun, sun
#Hypotension, chronic
� Patient notes has been hypotensive for the past few months, is following up with his PCP
� Midodrine as needed
� Pressures are stable here
#Chronic pancytopenia/history of multiple myeloma/AL amyloidosis
� Stable
� Continue home meds
#CAD
- History of multiple stents
#HFrEF on Imdur
#Asthma
� Stable
� No wheezing on exam
#Anxiety
#Gout
# Hyperlipidemia
Anticipated Discharge: Today
Subjective/Interval History
-
Date of Service: April 25, 2024
Objective Data
-
Labs:
Laboratory Results
04/25/24
06:00
WBC Pending
Hgb Pending
Hct Pending
Plt Count Pending
Sodium Pending
Potassium Pending
Chloride Pending
Carbon Dioxide Pending
BUN Pending
Creatinine Pending
Glucose Pending
Calcium Pending
Vital Signs:
Vital Signs
Temp Pulse Resp BP Pulse Ox
98.4 F 59 16 122/66 100
04/25/24 07:44 04/25/24 07:44 04/25/24 07:44 04/25/24 07:44 04/25/24 07:44
I&O
04/24/24 04/25/24 04/26/24
06:59 06:59 06:59
Intake Total 1020 / 1020 960 / 960
Output Total 400 / 400 175 / 175
Balance 620 / 620 785 / 785
Review of Systems
-
History Source: Patient
All other systems: Reviewed and negative
Physical Exam
-
General: Well Developed, Well Nourished and Cachectic
HEENT: Normocephalic
Respiratory: Clear to Auscultation
Cardiac: Regular Rhythm and S1/S2
GI: Soft, Nontender, Nondistended and Normal Bowel Sounds
Genito-urinary: No Costovertebral Tender
[2024-04-25] MEDS: MANNITOL 25% 12.5 GRAMS IV ×2 (08:25→10:06)
--- NOTE | 2024-04-25 08:29 | CM ---
GRAHAM reached Ela this am and she indicated that she was off. ESTEBAN her junior network administrator would be available to set up needed transfer when auth in place. Please call [phone].
[2024-04-25] MEDS: FLEXBUMIN 25% FOR HEMODIALYSIS 12.5 GRAMS IV ×2 (08:30→10:00)
[2024-04-25] MEDS: ProAmatine 5 MG PO (08:35)
--- NOTE | 2024-04-25 08:36 | CM ---
Addendum entered by Karen Shah 04/25/24 12:33:
[facility]
[address] [address]
Addendum entered by Karen Shah 04/25/24 09:59:
Auth received, 5 days skilled, 04/25 to 04/29, [id number], [id number], follow up with Dunia Mccarthy [phone].
[facility]
Report [id number]

Original Note:
manager health reviewed patient's chart and plan is for skilled placement at [facility], Auth is pending, [id number], patient is currently receiving HD.
[facility] in [place]
[phone]

Plan; Skilled placement at [facility] today and [facility] in [place], they will needs clinicals and flow sheets.
[2024-04-25] MEDS: NEURONTIN 100 MG PO (08:38)
[2024-04-25] MEDS: LAMICTAL 100 MG PO (08:39)
[2024-04-25] MEDS: VIBRAMYCIN 100 MG PO (08:39)
[2024-04-25] MEDS: HEPARIN 5000 UNITS SC (08:40)
[2024-04-25] MEDS: ZOVIRAX 200 MG PO (08:40)
[2024-04-25 08:55] LABS: Hemoglobin 9.9 g/dL (13.0-18.0); Mean Corp Hgb Conc. 30.9 g/dL (33.0-37.0); Mean Corpuscular Hgb 26.6 pg (27.0-31.0); Mean Platelet Volume 10.8 fL (7.4-10.4); Platelet Count 131 10^3/uL (130-400); Red Blood Cell Count 3.72 10^6/uL (4.70-6.10); Red Cell Dist. Width 17.1 % (11.5-14.5); White Blood Cell Count 3.1 10^3/uL (4.8-10.8)
[2024-04-25] MEDS: RETACRIT 3000 UNITS IV (09:02)
--- NOTE | 2024-04-25 09:11 | W.PN.NEPH.HD ---
Assessment
-
Patient seen on hD
systolic stable at current u/f `1kg
mannitol and albumin given to support u/f
Progress Note - Hemodialysis
-
Date of Service: April 25, 2024
Duration: 30 minutes and 3 hours
Potassium Bath: 3
Calcium Bath: 2.5
Opti-Dialyzer: 160
Ultrafiltration: Other (1kg)
Dialysate Flow: 600
Heparin: 500 times tw0
EPO: 3000
[2024-04-25 09:56] LABS: Blood Urea Nitrogen 32 mg/dl (9-20); Calcium 8.8 mg/dl (8.4-10.2); Carbon Dioxide 29 mmol/L (22-30); Chloride 94 mmol/L (98-107); Estimated Creatinine Clearance 20 ml/min; Glucose 75 mg/dl (70-99); Potassium 4.5 mmol/L (3.5-5.1); Sodium 131 mmol/L (135-145); eGFR 23.98
[2024-04-25] MEDS: ZYLOPRIM 100 MG PO (12:31)
[2024-04-25] MEDS: ASPIR LOW (ENTERIC COATED) 81 MG PO (12:31)
[2024-04-25] MEDS: CRESTOR 10 MG PO (12:31)
[2024-04-25] MEDS: IMDUR (EXTENDED RELEASE) 30 MG PO (12:32)
[2024-04-25 14:41] VITALS: BP 132/62
--- NOTE | 2024-04-25 15:26 | W.DCSUMMARY ---
Discharge Summary
Discharge Data
Date of Admission: 04/21/24
Date of Discharge: 04/25/24
-
Pending Results: No
Hospital Course
Discharging Physician : Dr. Mario Lo, Dr. Kat Tineo
Disposition : [facility]
Principal Discharge diagnosis :
Metabolic encephalopathy
Community-acquired pneumonia
End-stage renal disease on hemodialysis
Moderate protein calorie malnutrition
Hypotension, chronic
History of multiple myeloma/AL amyloidosis
Chronic Discharge diagnosis :
End-stage renal disease on hemodialysis
Hypotension, chronic
Chronic pancytopenia/history of multiple myeloma/AL amyloidosis
Coronary artery disease
Heart failure with reduced ejection fraction
Atrial fibrillation
Asthma
Gout
Hyperlipidemia
Hospital Course :
73-year-old male with past medical history of coronary artery disease, end-stage renal disease on dialysis, atrial fibrillation, HFrEF, multiple myeloma presented to the hospital on April 19, 2024 with shortness of breath for 1 day, altered mental
status and generalized weakness. He had missed a session of dialysis. In the ED, chest CT revealed thick band of airspace consolidation in the inferolateral right middle lobe most likely caused by atelectasis versus right middle lobe pneumonia.
Mild bilateral lower lobe bronchitis was also noted. Urine analysis also revealed 1+ leukocyte esterase. Head CT was negative for any acute etiology. Cultures were taken, and patient was started on empiric antibiotics for potential pneumonia
versus UTI. Of note, patient has chronic pancytopenia due to history of multiple myeloma which made a diagnosis of infection more difficult. WBC 3.1. Patient was oriented during hospital stay. Nephrology was also consulted to restart patient on
hemodialysis. Patient began to feel better and was becoming stronger. Cultures for urine and nasal swabs came back negative. Creatinine started to downtrend. He was transition to oral antibiotics.
Per PT, patient required assistance for ambulation and was not at his baseline, recommended skilled rehab.
Today, patient is clinically stable for discharge to SNF. He feels much better. He received dialysis today and a dose of cefdinir. Patient will continue cefdinir for 1 additional day on 04/28/2024 post-dialysis. No changes were made to
home meds [employer]. Patient was advised to follow-up as an outpatient with oncology if weakness started to progress.
Important imaging findings :
Head CT (04/19/2024):
1. Mild periventricular white matter leukoaraiosis in the frontal lobes.
2. Mild asymmetric low attenuation in the periventricular left frontal lobe which could be secondary to white matter leukoaraiosis or a small chronic white matter infarct which appears unchanged.
3. Mild diffuse cerebral and cerebellar volume loss.
4. No CT evidence for acute intracranial hemorrhage or transcortical infarct.
Chest CT (04/19/2024):
1. Small pleural effusion in the inferior left hemithorax with mild surrounding pleural thickening (decreased in size since 01/01/2024).
2. Mild subpleural subsegmental atelectasis and scarring in the basilar segments of the lower lobes.
3. Thick band of airspace consolidation in the inferolateral right middle lobe with associated right middle lobe volume loss which is most likely atelectasis. Right middle lobe pneumonia is an alternative diagnostic possibility if there are
signs/symptoms of pulmonary infection.
4. Mild bilateral lower lobe bronchitis.
5. Severe calcific atherosclerotic plaque in the coronary arteries and thoracic aorta.
6. Right IJ Mediport in place.
7. Severe discogenic degenerative disease in the cervical and thoracic spine.
8. Chronic bilateral full-thickness rotator cuff tears.
9. Severe osteoarthritis of the glenohumeral joints.
Discharge Plan
-
Patient Disposition: Skilled Nursing/SNF
Discharge Diagnosis/Procedures: Metabolic encephalopathy, community-acquired pneumonia, end-stage renal disease on hemodialysis, moderate protein calorie malnutrition, chronic hypotension, history of multiple myeloma/AL amyloidosis, coronary artery
disease, heart failure with reduced ejection fraction, asthma, anxiety, gout, hyperlipidemia
Condition: Good
Additional Diets: 4 gram sodium
Activity: As tolerated
Driving Restrictions: As prior to admission
Bathing Restrictions: OK to Shower
Referrals:
Yo Crocker, [Active] -
Bang Lambert III, DO [Family Provider] -
Additional Discharge Medication Instructions: You should take cefdinir 300mg once on Sunday04/28/2024 after your hemodialysis session.
If your weakness progresses after discharge, please follow-up with outpatient oncology (Dr. Crocker).
Prescriptions:
New
cefdinir 300 mg Capsule
300 mg PO ONCE Qty: 1 0RF
Rx Instructions:
Once after dialysis on Sunday04/28/2024
midodrine 5 mg Tablet
5 mg PO Q4HPRN PRN (Reason: hypotension) Qty: 7 0RF
Continued
lamotrigine 100 MG tablet
100 mg PO BID
ezetimibe 10 MG tablet
10 mg PO HS
rosuvastatin 10 MG tablet
10 mg PO DAILY
aspirin 81 MG tablet,delayed release (DR/EC)
81 mg PO DAILY
allopurinol 100 MG tablet
100 mg PO DAILY
montelukast [Singulair] 10 mg Tablet
10 mg PO UD
Rx Instructions:
take the night before, night of, and night after Darzalex infusion.
gabapentin [Neurontin] 100 mg Capsule
100 mg PO TID
Darzalex 20 mg/mL Solution
1,800 mg IV QMONTH
Venclexta 100 mg Tablet
200 mg PO DAILY
risperidone 0.25 mg Tablet
0.25 mg PO HS
isosorbide mononitrate 30 mg Tablet Extended Release 24 Hr
30 mg PO DAILY Qty: 0 0RF
furosemide 80 mg tablet
80 mg PO BID
acyclovir 200 mg Capsule
200 mg PO BID
Discharge Orders:
Discharge Patient (As Directed); Ordered 04/25/24
Ordered By: Kat Mahajan
Discharge Date and Time
Discharge Date/Time: 04/25/24 15:28
Print Language: BULGARIAN
== END 2024-04-25 15:28 | DRG 193 ==
LOC: 2 NORTH 15:19
PROVIDERS: Registered Nurse; Specialist; ADMITTING PHYSICIAN Internal Medicine; ATTENDING PHYSICIAN Internal Medicine; CONSULT PHYSICIAN Internal Medicine; EMERGENCY PHYSICIAN Emergency Medicine; FAMILY PHYSICIAN Internal Medicine
PROC: 5A1D70Z Performance of Urinary Filtration, Intermittent, Less than 6 Hours Per Day (ICD-10-PCS; 2024-04-21)
DX: J13 Pneumonia due to Streptococcus pneumoniae (principal); G93.41 Metabolic encephalopathy; N18.6 End stage renal disease; I13.2 Hypertensive heart and chronic kidney disease with heart failure and with stage 5 chronic kidney disease, or end stage renal disease; I50.22 Chronic systolic (congestive) heart failure; E44.0 Moderate protein-calorie malnutrition; E85.81 Light chain (AL) amyloidosis; D61.818 Other pancytopenia; J98.11 Atelectasis; R64 Cachexia; Z68.1 Body mass index [BMI] 19.9 or less, adult; E87.1 Hypo-osmolality and hyponatremia; I95.89 Other hypotension; Z85.79 Personal history of other malignant neoplasms of lymphoid, hematopoietic and related tissues; I25.10 Atherosclerotic heart disease of native coronary artery without angina pectoris; Z95.5 Presence of coronary angioplasty implant and graft; I48.0 Paroxysmal atrial fibrillation; J45.20 Mild intermittent asthma, uncomplicated; M10.9 Gout, unspecified; E78.00 Pure hypercholesterolemia, unspecified; Z99.2 Dependence on renal dialysis; J40 Bronchitis, not specified as acute or chronic; M19.019 Primary osteoarthritis, unspecified shoulder; Z79.899 Other long term (current) drug therapy; Z96.653 Presence of artificial knee joint, bilateral; Z87.891 Personal history of nicotine dependence; Z88.1 Allergy status to other antibiotic agents; Z88.8 Allergy status to other drugs, medicaments and biological substances; Z79.82 Long term (current) use of aspirin; R62.7 Adult failure to thrive; Z11.52 Encounter for screening for COVID-19; D63.1 Anemia in chronic kidney disease; F32.A Depression, unspecified; F41.9 Anxiety disorder, unspecified; G47.30 Sleep apnea, unspecified
CPT/HCPCS: 70450; 71250; 80048; 80053; 81003; 81015; 85025; 85027; 87070; 87086; 87449; 87502; 87811; 87899; 96361; 96374; 97162; 97166; 97530; 99285; G0257; P9047; Q5106

== ENCOUNTER 2024-11-05 13:25 | Inpatient (IN) | payer MEDICARE, SELFPAY ==
[2024-10-27] VITALS (14 sets, daily range): BP systolic 100–158; BP diastolic 36–105; BMI 18.8; BMI 18.7
--- NOTE | 2024-10-27 10:35 | EDRN ---
VAT RN TT to access R ACW port at this time.
--- NOTE | 2024-10-27 10:47 | EDRN ---
VAT RN in room w/ pt at this time.
[2024-10-27 11:05] LABS: Glucose - Point of Care 89 mg/dl (70-99)
[2024-10-27 11:08] LABS: Hematocrit 29.2 % (39.0-52.0); Hemoglobin 9.4 g/dL (13.0-18.0); Mean Corp Hgb Conc. 32.2 g/dL (33.0-37.0); Mean Corpuscular Volume 78.9 fL (80.0-94.0); Nucleated Red Blood Cells % 0 % (-); Platelet Count 161 10^3/uL (130-400); Red Cell Dist. Width 18.2 % (11.5-14.5)
[2024-10-27 11:19] LABS: INR 1.06; PT 14.1 Sec (11.4-14.6)
[2024-10-27 11:46] LABS: ALT (SGPT) < 10 U/L (0-50); AST (SGOT) 16 U/L (17-59); Albumin 3.5 g/dl (3.5-5.0); Alkaline Phosphatase 90 U/L (38-126); Blood Urea Nitrogen 44 mg/dl (9-20); Calcium 9.6 mg/dl (8.4-10.2); Carbon Dioxide 27 mmol/L (22-30); Chloride 96 mmol/L (98-107); Estimated Creatinine Clearance 13 ml/min; Glucose 88 mg/dl (70-99); Potassium 4.7 mmol/L (3.5-5.1); Sodium 131 mmol/L (135-145); Total Protein 5.6 g/dl (6.3-8.2); eGFR 14.11
[2024-10-27 11:47] LABS: Troponin I 0.112 ng/ml
[2024-10-27 12:17] LABS: COVID-19 Antigen Negative (Negative)
--- NOTE | 2024-10-27 14:56 | EDRN ---
Pt assisted to stand to void. Pt needed 2 people max assist to stand up and stay standing and 2 people assist back onto stretcher.
--- NOTE | 2024-10-27 15:10 | ED.GENMED ---
History of Present Illness
General
Chief Complaint: Weakness
Source: patient
Exam Limitations: none
Time Seen by Provider: 10/27/24 11:13
History of Present Illness
History of Present Illness:
73-year-old male end-stage renal disease Sunday dialysis patient presents complaining of generalized weakness. This has been a progressive decline since his last dialysis treatment 2 days ago. No reported fever. His also
states that he has been confused and mixing up words. No reported fever. He makes minimal urine. No vomiting. He also has a history of multiple myeloma. He follows with [facility] for this.
Past History
Past History
ED Past Medical History: Arrthythmia (Atrial fib), CAD, Cancer (multiple myeloma, Skin CA), CHF, HTN, Hypercholesterolemia, ME, Renal failure (Dialysis M-W-F), Psychiatric (Depression) and Other ( amyloidosis, Syncope, Renal calculus, Lymes, Sleep
apnea uses CPAP)
ED Past Surgical History: Cardiac (Stents X 4), Orthopedic (Cancer removed from left shoulder, Left knee meniscus, Right rotator cuff, , Bilateral knee replacement) and Other (Hernia repair, left arm fistula)
Social History
Tobacco: Former smoker
Alcohol: Occasional
Drug: None
Personal:
Living: alone
Employment: Not employed
Phy Exam
Physical Exam
Physical Exam:
General: Chronically ill male no acute respiratory distress
HEENT normocephalic mucosa dry
Heart: Regular rate and rhythm
Lungs: Clear no wheeze
Abdomen soft nontender
Extremities: No cyanosis or edema
Skin is warm no rash
Course
Orders/Labs/Results
Orders:
Orders
10/27/24 10:35
Electrocardiogram (*1) Urgent
Reason for Study: Chest Pain
Cardiac Monitoring- Treatment ONCE
EKG- Treatment ONCE
10/27/24 10:59
Complete Blood Count/With Diff Urgent
Comprehensive Metabolic Panel Urgent
Prothrombin Time Urgent
Troponin I Urgent
10/27/24 11:24
CR Chest - 2 Views Urgent
Comment:
Reason For Exam: weakness
10/27/24 11:25
CT Head W/o Iv Contrast Urgent
Comment:
Reason For Exam: confusion
10/27/24 11:47
COVID-19 Antigen Urgent
Source: Nasal Swab
10/27/24 11:59
Lactic Acid Urgent
Abnormal Lab Results
10/27/24
10:59
RBC 3.70 L 10^6/uL
(4.70-6.10)
Hgb 9.4 L g/dL
(13.0-18.0)
Hct 29.2 L %
(39.0-52.0)
MCV 78.9 L fL
(80.0-94.0)
MCH 25.4 L pg
(27.0-31.0)
MCHC 32.2 L g/dL
(33.0-37.0)
RDW 18.2 H %
(11.5-14.5)
Absolute Lymphs (auto) 0.7 L 10^3/uL
(1.2-3.4)
Lymphocytes % 11.0 L %
(20.5-51.1)
Monocytes % 10.5 H %
(1.7-9.3)
Sodium 131 L mmol/L
(135-145)
Chloride 96 L mmol/L
(98-107)
BUN 44 H mg/dl
(9-20)
Creatinine 4.2 H* mg/dL
(0.7-1.3)
AST 16 L U/L
(17-59)
Troponin I 0.112 H* ng/ml
Total Protein 5.6 L g/dl
(6.3-8.2)
10/27/24 10:59
10/27/24 10:59
Vital Signs
Initial and Last Documented VS:
Initial Vital Signs
BP
106/64
10/27/24 10:25
Last Documented Vital Signs
Temp Pulse Resp BP Pulse Ox
97.8 F 58 10 151/85 98
10/27/24 10:28 10/27/24 14:52 10/27/24 14:52 10/27/24 14:52 10/27/24 14:52
MDM/Problems Addressed
Differential Diagnosis Includes:
Generalized weakness. Consider dehydration versus electrolyte abnormality versus worsening underlying end-stage renal disease versus infectious source
Ordered CT of head, x-ray COVID test and labs.
*Pulse Oximetry
SaO2: 98
Oxygen Mode of Delivery: Room air
Patient hypoxic: no
*Critical Care Note
Total Time (30-74mins, 75-104mins- exclusive of procedures): Not Applicable
Update Note
Update Note:
No acute etiology to explain patient's profound weakness however patient did miss hemodialysis today. CT negative chest x-ray clear COVID-negative. Requires multiple people just to stand and transfer. Not a candidate for discharge. Will admit to
hospital for generalized weakness
ED Attending Note
-
Portions of this chart may have been created with voice recognition software.� Occasional wrong word or��sound alike� substitutions may have occurred due to the inherent limitations of voice recognition software.
Discharge Plan
Departure
Patient Disposition: Admit
Date of Disposition: 10/27/24
Time of Disposition: 15:10
Presentation/result/management discussed w/ accepting MD/DO: Hospitalist
Discharge Problem:
Weakness
Prescriptions:
No Action
lamotrigine 100 MG tablet
100 mg PO BID
ezetimibe 10 MG tablet
10 mg PO HS
rosuvastatin 10 MG tablet
10 mg PO DAILY
aspirin 81 MG tablet,delayed release (DR/EC)
81 mg PO DAILY
allopurinol 100 MG tablet
100 mg PO DAILY
montelukast [Singulair] 10 mg Tablet
10 mg PO UD
Rx Instructions:
take the night before, night of, and night after Darzalex infusion.
gabapentin [Neurontin] 100 mg Capsule
100 mg PO TID
Darzalex 20 mg/mL Solution
1,800 mg IV QMONTH
Venclexta 100 mg Tablet
200 mg PO DAILY
risperidone 0.25 mg Tablet
0.25 mg PO HS
isosorbide mononitrate 30 mg Tablet Extended Release 24 Hr
30 mg PO DAILY Qty: 0 0RF
furosemide 80 mg tablet
80 mg PO BID
acyclovir 200 mg Capsule
200 mg PO BID
cefdinir 300 mg Capsule
300 mg PO ONCE Qty: 1 0RF
Rx Instructions:
Once after dialysis on Sunday04/28/2024
midodrine 5 mg Tablet
5 mg PO Q4HPRN PRN (Reason: hypotension) Qty: 7 0RF
Referrals:
Bang Lambert III, DO [Family Provider, Internal Medicine]
Interventions
Interventions:
*Risk Screen - Suicide Last Done: 10/27/24 10:28
*General Assessment Last Done: 10/27/24 10:28
*Neglect/Abuse Screening Last Done: 10/27/24 10:28
*ED COVID-19 Vaccine History Last Done: 10/27/24 10:28
ED- Cardiac Assessment Last Done: 10/27/24 10:45
ED- Neurological Assessment Last Done: 10/27/24 10:39
ED- Pulmonary Assessment Last Done: 10/27/24 10:39
ED Swallowing Screen Last Done: 10/27/24 11:15
Discharge Date and Time
Print Language: LAO
--- NOTE | 2024-10-27 15:44 | W.CON.NEPH ---
Consultation
-
Date/Time Consultation Requested: 10/27/2024 3:00 PM
Date/Time Consultation Performed: 10/27/2024 345 PM
Requesting Provider: Jero Araujo
Performing Provider: Dr. Monae
Reason for Consultation: End-stage renal disease
Medical History
-
Chief Complaint: End-stage renal disease
History of Present Illness:
73y/o M with ESRD on HD started in July 2023. He has a left AVF and receives dialysis at [facility] on MWF, hypotension on midodrine twice daily,, ASCVD on ASA, HFrEF on imdur, MM, recurrent pleural effusion requiring thoracentesis on several
occasions. The patient presents to the emergency room today due to generalized weakness. He states the symptoms have been progressive decline since his last dialysis treatments 2 days prior he has also been having some confusion per . There
is been denial of any fevers or vomiting.
Past Medical History
ASCVD
Hypertension
Chronic HFrEF
Paroxysmal Atrial Fibrillation
ESRD on HD MWF left CVC
Multiple Myeloma / Amyloidosis
Gout
Anemia of Chronic Disease
Recurrent Left Pleural Effusion
Chemo-Induced Peripheral Neuropathy
Depression
Retroperitoneal Bleeding on Eliquis
Past Surgical History: Other (Left IJ HD Catheter R ACW Port PTCA with Stent (x 4) Bilateral TKA Hernia Repair Right Rotator Cuff Repair (x 2))
Social History
Tobacco: Former Smoker (quit in )
Alcohol: Occasional
Drug: None
Living: Alone
Family History
Family History: Not Pertinent
Allergies / Home Medications
Allergy/AdvReac Type Severity Reaction Status Date / Time
atorvastatin Allergy MUSCLE Verified 04/19/24 07:43
CRAMPS
Cephalosporins Allergy added by Verified 04/19/24 17:52
[employer]
with new
system in
2007
coconut Allergy vomits Verified 04/19/24 07:43
penicillin V Allergy Vomiting Verified 04/19/24 07:43
pregabalin (From Lyrica) Allergy Tongue Verified 04/19/24 07:43
Swelling
simvastatin Allergy muscle Verified 04/19/24 07:43
cramps
�Medication �Instructions �Recorded �Confirmed �Type
lamotrigine 100 mg tablet 100 mg PO BID Neurological 07/24/19 10/27/24 History
Condition
rosuvastatin 10 mg tablet 10 mg PO DAILY High cholesterol 08/26/19 10/27/24 History
aspirin 81 mg tablet,delayed 81 mg PO DAILY Blood clot 08/27/19 10/27/24 History
release prevention/tx
allopurinol 100 mg tablet 100 mg PO DAILY Gout 06/15/20 10/27/24 History
gabapentin 100 mg capsule 100 mg PO TID Pain 09/26/21 10/27/24 History
(Neurontin)
risperidone 0.25 mg tablet 0.25 mg PO HS Mental Health/Anxiety 08/06/23 10/27/24 History
isosorbide mononitrate 30 mg 30 mg PO DAILY HEART CONDITION #0 08/21/23 10/27/24 Rx
tablet,extended release 24 hr tabs
acyclovir 200 mg capsule 200 mg PO BID Infection 04/19/24 10/27/24 History
midodrine 5 mg tablet 5 mg PO BID 10/27/24 10/27/24 History
sevelamer carbonate 800 mg tablet 800 mg PO BID 10/27/24 10/27/24 History
Review of Systems
-
History Source: Patient
All other systems: Negative unless noted
Constitutional: Other (weakness)
: Other (Baseline anuria)
Physical Exam
Vital Signs
Vital Signs
Temp Pulse Resp BP Pulse Ox
97.8 F 53 14 126/65 98
10/27/24 10:28 10/27/24 15:15 10/27/24 15:15 10/27/24 15:00 10/27/24 15:13
Lab Results
10/27/24 10:59
10/27/24 10:59
WBC 5.9 10^3/uL (4.8-10.8) 10/27/24 10:59
RBC 3.70 10^6/uL (4.70-6.10) L 10/27/24 10:59
Hgb 9.4 g/dL (13.0-18.0) L 10/27/24 10:59
Hct 29.2 % (39.0-52.0) L 10/27/24 10:59
Plt Count 161 10^3/uL (130-400) 10/27/24 10:59
Sodium 131 mmol/L (135-145) L 10/27/24 10:59
Potassium 4.7 mmol/L (3.5-5.1) 10/27/24 10:59
Chloride 96 mmol/L (98-107) L 10/27/24 10:59
Carbon Dioxide 27 mmol/L (22-30) 10/27/24 10:59
BUN 44 mg/dl (9-20) H 10/27/24 10:59
Creatinine 4.2 mg/dL (0.7-1.3) H* 10/27/24 10:59
eGFR 14.11 10/27/24 10:59
Glucose 88 mg/dl (70-99) 10/27/24 10:59
Calcium 9.6 mg/dl (8.4-10.2) 10/27/24 10:59
Albumin 3.5 g/dl (3.5-5.0) 10/27/24 10:59
Physical Exam
General: AOx3, Nontoxic , NAD, cachectic
HEENT: PERRL, EOMI, Anicteric, Conjunctivae Clear, Ear/Nose Intact, Hearing Normal, Oropharynx Clear/dry, Facial Symmetry, Neck Supple, Neck: Trachea Midline, No JVD and No Thyromegaly, no Bruits
Respiratory: coarse to auscultation bilaterally with normal lung excursion, decreased breath sounds to left base
CHEST wall: Right anterior chest wall Mediport
Cardiac: S1/S2 irregular
Breast: Deferred by me
Abdomen: Soft, Nontender, Nondistended, Normal Bowel Sounds and No Hepatosplenomegaly
Rectal: Deferred by Provider
Genito-urinary: No Costovertebral Tenderness
Extremities: No Clubbing, No Cyanosis and No Edema
Skin: No Rash or open lesions
Neuro: Nonfocal/Grossly Intact, CN II-XII (Intact) and Strength (Musculoskeletal exam 5 out of 5 both upper and lower extremities)
Hematologic/Lymphatic: No Cervical Lymphadenopathy, No Submandibular Lymphadenopathy and No Supraclavicular Lymphadenopathy
Psych: Mood/afflect pleasant, Insight/judgement good and Appropriate
Vascular: plus 1 pedal and radial pulses
Vascular Access: AVF (Left upper extremity AV fistula)
Data Reviewed
-
Radiology: Image Personally Visualized and interpreted (Left lower lung opacity extending into posterior lung)
CT Scan: Report Reviewed by me (CT of head reviewed: mild cerebral volume loss)
Medical Tests (Nuc Med, Echo etc): Other (EKG notes atrial fibrillation with left axis deviation nonspecific intraventricular conduction block possible lateral infarct at 61 beats per minute)
Labs: Labs Reviewed by me (BMP CBC)
Old Records: Reviewed (Reviewed prior nephrology consultation from 04/19/2024 in EMR when patient presented with shortness of breath in setting of end-stage renal disease)
Assessment/Plan
-
Impression:
Weakness
metabolic encephalopathy
Hyponatremia
Hyperphosphatemia
End-stage renal disease Sunday [place] unit
Recurrent left pleural effusion, s/p multiple thoracentesis s/p recent pleurodesis?
Anemia
Coronary artery disease with multiple stents
Atrial fibrillation
Heart failure reduced ejection fraction
Left AVF
AL amyloidosis/multiple myeloma
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
chronic pancytopenia
Asthma, mild intermittent
Anxiety
Gout
Hyperlipidemia
mild hyponatremia
Plan:
-Weakness workup in progress but no obvious sign of infection (obtain blood cultures)
- No acute dialysis requirement today
- Dialysis will be provided tomorrow orders written
- Maintain appropriate fluid restriction at 48 ounces daily as well as sodium and potassium restriction
- Midodrine to be provided for chronic hypotension
- HEMANTH therapy will be provided for anemia
- Maintain sevelamer for hyperphosphatemia
--- NOTE | 2024-10-27 16:25 | HPS.HSE ---
Addendum entered and electronically signed by Trang Silver MD 10/27/24 20:39:
This is an addendum to H&P written by Amarilis Rose on 10/27/2024. �Patient seen and examined independently with IT LEAD.
73-year-old male past medical history of ESRD on hemodialysis, chronic hypotension, chronic pancytopenia/multiple myeloma/AL on chemotherapy, amyloidosis, normocytic anemia, chemotherapy-induced neuropathy, CAD status post stents, HFrEF, paroxysmal
atrial fibrillation on Eliquis, recurrent left pleural effusion, hypertension, asthma, gout, hyperlipidemia, depression presenting with generalized weakness. �No other focal symptoms. �He missed Alysis today due to weakness.
Last received chemotherapy on Sunday he says with worsening weakness, intermittent confusion, hallucinations since starting chemotherapy in July.
Vital signs unremarkable apart from mild bradycardia heart rate 50s.
Labs show stable hemoglobin. �Stable hyponatremia 131. �Chronic troponin elevation 0.1.
Chest x-ray shows low lung volumes with hazy bibasilar opacities, left greater than right favored to represent atelectasis and or scarring with pneumonia not excluded. �No significant pleural effusions. �Moderate cardiomegaly. �CT head shows no
acute abnormality.
No clear etiology of weakness apart from generalized weakness from chemotherapy. �No clear infectious symptoms or evidence of volume overload. Nephrology consulted for monitor dialysis tomorrow.
Original Note:
Family Physician
-
Family Physician: Bang Lambert
Chief Complaint
-
generalized weakness
History of Present Illness
Patient is a 73-shaye-old male with past medical history significant for CAD, hypertension, Chronic HFrEF, paroxysmal atrial fibrillation, ESRD on HD, multiple myeloma / amyloidosis, gout, anemia of chronic disease, recurrent left pleural effusion,
chemo-induced peripheral neuropathy, depression and retroperitoneal bleeding on Eliquis who presented to [facility] for evaluation of generalized weakness. Patient reports that he has had significant weakness for the past 2 days, starting on Sunday
when he required 2 people to assist him in just standing. He also reports intermittent difficulty wording finding and feels he may have had visual hallucinations. Patient denies any recent illness, fever, chills, cough, shortness of breath, chest
pain, nausea, vomting, constipation, diarrhea or change in urinary production (which is very minimal) and no urinary symptoms.
Medical History
Past Medical History
Past Medical History: Reports Other
Additional Past Medical History:
CAD
Hypertension
Chronic HFrEF
Paroxysmal Atrial Fibrillation
ESRD on HD
Multiple Myeloma / Amyloidosis
Gout
Anemia of Chronic Disease
Recurrent Left Pleural Effusion
Chemo-Induced Peripheral Neuropathy
Depression
Retroperitoneal Bleeding on Eliquis
Past Surgical History: Reports Other
Additional Past Surgical History:
Left IJ HD Catheter
R ACW Port
PTCA with Stent (x 4)
Bilateral TKA
Hernia Repair
Right Rotator Cuff Repair (x 2)
Social History
Tobacco: Former Smoker (quit in the )
Alcohol: Occasional
Drug: None
Living: Alone
Family History
Family History: Not pertinent
Allergies / Home Medications
Allergies reflects when Allergies were last updated in [employer].
Home Medications with original date entered in [employer]
Allergy/Medication List:
Allergies
Allergy/AdvReac Type Severity Reaction Status Date / Time
atorvastatin Allergy MUSCLE Verified 04/19/24 07:43
CRAMPS
Cephalosporins Allergy added by Verified 04/19/24 17:52
[facility]
with new
system in
2007
coconut Allergy vomits Verified 04/19/24 07:43
penicillin V Allergy Vomiting Verified 04/19/24 07:43
pregabalin (From Lyrica) Allergy Tongue Verified 04/19/24 07:43
Swelling
simvastatin Allergy muscle Verified 04/19/24 07:43
cramps
Home Medications
lamotrigine 100 mg tablet 100 mg PO BID Neurological Condition 07/24/19
rosuvastatin 10 mg tablet 10 mg PO DAILY High cholesterol 08/26/19
aspirin 81 mg tablet,delayed release 81 mg PO DAILY Blood clot prevention/tx 08/27/19
allopurinol 100 mg tablet 100 mg PO DAILY Gout 06/15/20
gabapentin 100 mg capsule (Neurontin) 100 mg PO TID Pain 09/26/21
risperidone 0.25 mg tablet 0.25 mg PO HS Mental Health/Anxiety 08/06/23
isosorbide mononitrate 30 mg tablet,extended release 24 hr 30 mg PO DAILY HEART CONDITION #0 tabs 08/21/23
acyclovir 200 mg capsule 200 mg PO BID Infection 04/19/24
midodrine 5 mg tablet 5 mg PO BID 10/27/24
sevelamer carbonate 800 mg tablet 800 mg PO BID 10/27/24
Review of Systems
-
History Source: Patient
Constitutional: Reports Fatigue; Denies Fever or Chills
EENT: Reports No Symptoms
Respiratory: Reports No Symptoms; Denies Cough or Trouble Breathing
Cardiac: Reports No Symptoms; Denies Chest Pain, Palpitations or Syncope
Abdomen/GI: Reports No Symptoms, Diarrhea and Constipated; Denies Abdominal Pain, Nausea or Vomiting
: Reports No Symptoms
Musculoskeletal: Reports No Symptoms
Skin: Reports No Symptoms
Neurological: Reports Weakness (generalized ) and Other (intermittent difficulty word finding )
Endocrine: Reports No Symptoms
Hematologic/Lymphatic: Reports No Symptoms
Psych: Reports No Symptoms
Physical Exam
Vital Signs
Vital Signs
Temp Pulse Resp BP Pulse Ox
97.8 F 53 14 126/65 98
10/27/24 10:28 10/27/24 15:15 10/27/24 15:15 10/27/24 15:00 10/27/24 15:13
Physical Exam
General: Well Developed, No Apparent Distress, Appears Chronically Ill and Cachectic
HEENT: NormoCephalic, Moist mucous membranes and Atraumatic
Respiratory: Clear and Non Labored Respirations
Cardiac: S1/S2 and Regular Rhythm; No Murmur, Rub or Gallop
GI: Soft, Non Tender, Non Distended and Normal Bowel Sounds
Rectal: Deferred by Provider
Genito-urinary: Deferred by me
Musculoskeletal: No Clubbing, No Cyanosis and No Edema
Skin: Warm and IV/Catheter Site
Neuro: AO x 3 and Nonfocal/grossly intact
Psych: Calm
Laboratory Results
-
10/27/24 10:59
10/27/24 10:59
Laboratory Results
PT 14.1 Sec (11.4-14.6) 10/27/24 10:59
INR 1.06 10/27/24 10:59
Lactic Acid 1.2 mmol/L (0.7-2.0) 10/27/24 11:59
Total Bilirubin 0.5 mg/dl (0.2-1.3) 10/27/24 10:59
AST 16 U/L (17-59) L 10/27/24 10:59
ALT < 10 U/L (0-50) 10/27/24 10:59
Alkaline Phosphatase 90 U/L (38-126) 10/27/24 10:59
Troponin I 0.112 ng/ml H* 10/27/24 10:59
Data Reviewed
-
Diagnostic Radiology: Report Reviewed by me (CXR: Low lung volumes with hazy bibasilar opacities, left greater than right, favored to represent atelectasis and/or scarring with pneumonia not excluded in appropriate clinical setting. No significant
pleural effusions. Moderate cardiomegaly.)
CT Scan: Report Reviewed by me (Head: No acute intracranial abnormality. Unchanged mild cerebral volume loss and chronic white matter disease.)
Lab Data: Labs Reviewed by me (hgb 9.4. hct 29.2, plt 161, Na+ 131, BUN 44, Creat 4.2, Est CrCl 13, eGFR 14.11, trop 0.112)
Impression/Plan
-
IMPRESSION/PLAN:
#generalized weakness likely 2/2 deconditioning from chronic medical conditions, no infectious symptoms and no volume overload
CXR: Low lung volumes with hazy bibasilar opacities, left greater than right, favored to represent atelectasis and/or scarring with pneumonia not excluded in appropriate clinical setting. No significant pleural effusions.
Moderate cardiomegaly.
Head CT: No acute intracranial abnormality.
Unchanged mild cerebral volume loss and chronic white matter disease.
EKG: ATRIAL FIBRILLATION
LEFT AXIS DEVIATION
NON-SPECIFIC INTRA-VENTRICULAR CONDUCTION BLOCK
POSSIBLE LATERAL INFARCT (CITED ON OR BEFORE 28-Feb-2020)
- Admit to med/surg
- Consult PT/OT
#ESRD on HD
HD M-W-F (missed HD today)
Na+ 131, BUN 44, Creat 4.2, Est CrCl 13, eGFR 14.11, trop 0.112
- Consult Nephrology
- continue sevelamer
#CAD
s/p multiple stents
- continue aspirin
#Chronic HFrEF
- I & Os
- daily weights
- continue isosorbide mononitrate
#Chronic Pancytopenia 2/2 Hx Multiple Myeloma / Amyloidosis
hgb 9.4. hct 29.2, plt 161
- stable; monitor CBC
- continue acyclovir prophylactically
#Gout
- continue allopurinol
#Chemo-Induced Peripheral Neuropathy
- continue gabapentin
#Paroxysmal Atrial Fibrillation
#Anemia of Chronic Disease
#Hypertension
#Recurrent Left Pleural Effusion
#Depression
#Retroperitoneal Bleeding on Eliquis
Code status: full code
DVT Prophylaxis: Eliquis
--- NOTE | 2024-10-27 16:49 | EDRN ---
Pt was seen by Junior Sales Assistant and has HD orders. Amanda Rose NP in room w/pt.
--- NOTE | 2024-10-27 17:16 | EDRN ---
This RN checked on HD and it is ordered for tomorrow.
--- NOTE | 2024-10-27 17:48 | EDRN ---
Dr. Silver in room w/pt
--- NOTE | 2024-10-27 17:57 | EDRN ---
Edwin ordered for pt at this time.
[2024-10-27] MEDS: RISPERDAL 0.25 MG PO (21:23)
[2024-10-27] MEDS: NEURONTIN 100 MG PO (21:23)
[2024-10-27] MEDS: LAMICTAL 100 MG PO (21:23)
[2024-10-27] MEDS: ZOVIRAX 200 MG PO (21:23)
[2024-10-27] MEDS: RENVELA PO (22:08)
[2024-10-27] MEDS: HEPARIN 5000 UNITS SC (23:40)
[2024-10-28] VITALS (8 sets, daily range): BP systolic 121–168; BP diastolic 59–72; PULSE 71; O2SAT 99; BMI 18.9
--- NOTE | 2024-10-28 00:13 | PTCARENOTE ---
Pt arrived from ED to unit on stretcher at 1999. Pt pulled over to bed. AAOx3. Recent episodes of hallucinations, pt reports no hallucinations today. Pt placed on monitor, VSS. HD session planned for tonight, switched to tomorrow morning at 0700. Pt
oriented to unit, call angelo within reach. Pt notified on plan of care for tonight, pt is agreeable to this. Pt reports no further needs at this time.
[2024-10-28 06:05] LABS: Glucose - Point of Care 82 mg/dl (70-99)
--- NOTE | 2024-10-28 06:40 | PTCARENOTE ---
Pt became increasingly more confused throughout night. Several attempts made to get out of bed. Bed alarm placed & working. AAOx3, pt endorses continued difficulty word finding, admits to some confusion regarding time. Patient is able to be
redirected back to bed. As this was a change from admission, LIMEHOUSE WORKER was notified. POC Glucose obtained- 82 result. VSS.Pt does not report feeling faint or lightheaded, no diaphoresis or tremors noted. Pt remains in bed at this moment, call angelo within
reach. Dayshift RN notified of this change.
[2024-10-28] MEDS: HEPARIN SC (07:54)
[2024-10-28] MEDS: RENVELA 800 MG PO ×2 (07:55→16:12)
[2024-10-28] MEDS: NEURONTIN PO (08:10)
[2024-10-28 08:47] LABS: Hematocrit 29.0 % (39.0-52.0); Hemoglobin 9.3 g/dL (13.0-18.0); Mean Corp Hgb Conc. 32.1 g/dL (33.0-37.0); Mean Corpuscular Volume 77.7 fL (80.0-94.0); Platelet Count 185 10^3/uL (130-400); Red Cell Dist. Width 18.0 % (11.5-14.5)
--- NOTE | 2024-10-28 08:50 | W.PN.NEPH.HD ---
Assessment
-
Patient seen on hemodialysis treatment
Systolic blood pressure at 144 at current ultrafiltration
Access with good function
Etiology of weakness is not easily discernible but may be related to recent chemotherapy administration
Next dialysis treatment may be tomorrow or day pending scheduling
Progress Note - Hemodialysis
-
Date of Service: October 28, 2024
Duration: 30 minutes and 3 hours
Potassium Bath: 2
Calcium Bath: 2.5
Opti-Dialyzer: 160
Ultrafiltration: Other (Ultrafiltration for 2 kg)
Blood Flow: 400
Dialysate Flow: 600
Heparin: None
EPO: 6000
[2024-10-28] MEDS: RETACRIT 6000 UNITS IV (09:06)
[2024-10-28 09:19] LABS: Blood Urea Nitrogen 52 mg/dl (9-20); Calcium 9.5 mg/dl (8.4-10.2); Carbon Dioxide 23 mmol/L (22-30); Chloride 97 mmol/L (98-107); Estimated Creatinine Clearance 12 ml/min; Glucose 80 mg/dl (70-99); Potassium 5.2 mmol/L (3.5-5.1); Sodium 130 mmol/L (135-145); eGFR 12.99
--- NOTE | 2024-10-28 11:53 | W.PN.HOSP.TC ---
Today's Communication/Plan
-
Assessment / Plan
Assessment / Plan
General: No Apparent Distress, Comfortable, chronically ill-appearing
HEENT: NormoCephalic, Moist mucous membranes, Atraumatic
Respiratory: Clear and Non Labored Respirations
Cardiac: S1/S2 and Regular Rhythm; left upper extremity AV fistula
GI: Soft, Non Tender, Non Distended and Normal Bowel Sounds
Musculoskeletal: No Edema, right chest port
Skin: Warm and dry
: NO Viera
Neuro: Awake, Alert, Nonfocal/grossly intact
Psych: Calm and cooperative
Mr. Shore is a 73-year-old male with a medical history of HFrEF, paroxysmal A-fib, ESRD CAD (status post stents), multiple myeloma, amyloidosis, chemo induced peripheral neuropathy, depression, and anemia of chronic disease who presented with
generalized weakness. He thinks his symptoms have been progressive since beginning chemotherapy in July. He did miss his dialysis session on Sunday (day of admission). He has been admitted for further evaluation and management
Generalized weakness:
- Suspect secondary to multiple comorbidities and subsequent deconditioning including due to multiple myeloma with ongoing chemotherapy
- PT/OT
- No evidence of acute infection
ESRD:
- Continue HD MWF
CAD:
- Chronic, stable
- Continue aspirin and statin
Chronic HFrEF:
- Currently compensated
- Continue afterload reduction with Imdur 30 mg daily
Anemia:
- Due to chronic disease, stable
- Monitor
Hyponatremia:
- Chronic, appears at baseline
- Clinically insignificant
Hyperkalemia:
- Mild potassium 5.2
- Will monitor for fraction with dialysis
DVT prophylaxis: SCDs
CODE STATUS: Full code
Total time spent on today's encounter was 54 minutes
Anticipated Discharge: 24 - 48 hours
Subjective/Interval History
-
Date of Service: October 28, 2024
Patient was seen and examined at bedside. On dialysis, still feeling generalized weakness.
Objective Data
-
Labs:
Laboratory Results
10/28/24
08:28
WBC 6.4
Hgb 9.3 L
Hct 29.0 L
Plt Count 185
Sodium 130 L
Potassium 5.2 H
Chloride 97 L
Carbon Dioxide 23
BUN 52 H
Creatinine 4.5 H*
Glucose 80
Calcium 9.5
Vital Signs:
Vital Signs
Temp Pulse Resp BP Pulse Ox
97.8 F 73 16 132/59 93
10/28/24 11:32 10/28/24 11:32 10/28/24 11:32 10/28/24 11:32 10/28/24 11:32
I&O
10/27/24 10/28/24 10/29/24
06:59 06:59 06:59
Intake Total 240 / 240
Output Total 515 / 515
Balance -275 / -275
Review of Systems
-
History Source: Patient
Constitutional: Reports Weakness
Physical Exam
-
General: No Apparent Distress
[2024-10-28] MEDS: CRESTOR 10 MG PO (12:23)
[2024-10-28] MEDS: ZOVIRAX 200 MG PO ×2 (12:23→22:09)
[2024-10-28] MEDS: LAMICTAL 100 MG PO ×2 (12:23→22:09)
[2024-10-28] MEDS: ZYLOPRIM 100 MG PO (12:24)
[2024-10-28] MEDS: ASPIR LOW (ENTERIC COATED) 81 MG PO (12:24)
[2024-10-28] MEDS: IMDUR (EXTENDED RELEASE) 30 MG PO (12:24)
[2024-10-28] MEDS: NEURONTIN 100 MG PO ×2 (15:03→22:09)
[2024-10-28] MEDS: HEPARIN 5000 UNITS SC ×2 (15:03→23:46)
--- NOTE | 2024-10-28 15:40 | CM ---
environmental engineering manager reviewed patient's chart and met with patient and patient lives alone in a one story home, with one step to enter, patient is independent with adl's and uses a cane with ambulation. Patient is on HD and receives HD at [address]
[facility] MWF, 11am, , .
Patient was admitted under OBS, letter provided signed and placed on chart.
PCP: Bang Lambert
Pharmacy: [facility]
Plan; Await PT/OT evaluations to discuss discharge planning.
--- NOTE | 2024-10-28 18:10 | PTCARENOTE ---
Patient AAO to self only this AM, confused on place, time, and situation, attempting to get OOB and calling out for thinking he is home. HD session in room, 2 kilos off this AM, patient mentation improved s/p HD, occasionally confused
conversation and forgetful but able to answer orientation questions correctly. PT/OT working with patient this afternoon, patient assist x1 RW OOB to chair and BSC, unsteady gait, bed and chair alarms in place, patient occasionally impulsive and
trying to get OOB independently but able to be redirected. made aware of patient's mentation, no new orders at this time. Patient for scheduled HD session in AM.
[2024-10-28] MEDS: RISPERDAL 0.25 MG PO (22:09)
[2024-10-28] MEDS: SENOKOT 8.6 MG PO (22:09)
[2024-10-29 03:04] VITALS: BP 118/89
[2024-10-29 06:00] VITALS: BMI 18.4
[2024-10-29 07:55] VITALS: BP 136/71
[2024-10-29] MEDS: RENVELA 800 MG PO ×2 (09:18→16:39)
[2024-10-29] MEDS: CRESTOR 10 MG PO (09:18)
[2024-10-29] MEDS: NEURONTIN 100 MG PO ×3 (09:18→21:46)
[2024-10-29] MEDS: ASPIR LOW (ENTERIC COATED) 81 MG PO (09:19)
[2024-10-29] MEDS: LAMICTAL 100 MG PO ×2 (09:19→19:38)
[2024-10-29] MEDS: ZYLOPRIM 100 MG PO (09:19)
[2024-10-29] MEDS: ZOVIRAX 200 MG PO ×2 (09:19→19:38)
[2024-10-29] MEDS: IMDUR (EXTENDED RELEASE) 30 MG PO (09:19)
[2024-10-29] MEDS: HEPARIN 5000 UNITS SC ×2 (09:21→16:38)
--- NOTE | 2024-10-29 09:49 | W.PN.NEPH.PH ---
Today's Communication / Plan
-
HD tomorrow
Assessment/Plan
-
Impression:
Weakness
metabolic encephalopathy
Hyponatremia
Hyperphosphatemia
End-stage renal disease Sunday [facility] unit
Recurrent left pleural effusion, s/p multiple thoracentesis s/p recent pleurodesis?
Anemia
Coronary artery disease with multiple stents
Atrial fibrillation
Heart failure reduced ejection fraction
Left AVF
AL amyloidosis/multiple myeloma
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
chronic pancytopenia
Asthma, mild intermittent
Anxiety
Gout
Hyperlipidemia
mild hyponatremia
Plan:
hemodynamically stable
next HD plan tomorrow
Maintain appropriate fluid restriction at 40 ounces daily as well as sodium and potassium restriction
- Midodrine to be provided for chronic hypotension
- HEMANTH therapy will be provided for anemia
- Maintain sevelamer for hyperphosphatemia
d/w pt
-
-
Date of Service: October 29, 2024
CC / HPI / ROS
-
Chief Complaint:
ESRD
History of Present Illness:
BP stable
T max 100.1 last night
on RA
tolerated HD yesterday
Review of Systems:
no dysuria
feels ok but not baseline
Labs
-
Labs:
eGFR 12.99 10/28/24 08:28
Albumin 3.5 g/dl (3.5-5.0) 10/27/24 10:59
Physical Exam
-
Vital Signs:
Vital Signs
Temp Pulse Resp BP Pulse Ox
98.7 F 67 16 136/71 96
10/29/24 07:55 10/29/24 07:55 10/29/24 07:55 10/29/24 09:20 10/29/24 07:55
Cardiovascular:: Regular rate and rhythm
Respiratory:: Bilateral: CTA (decreased BS)
Lung Excursion:: Normal
Abdomen:: Nontender and Soft
Extremity Edema:: None: Bilateral:
Viera Catheter: No
[2024-10-29 11:25] VITALS: BP 114/62
--- NOTE | 2024-10-29 11:53 | CM ---
Addendum entered by Karen Shah 10/29/24 14:59:
Referrals sent to [facility], patient is on HD at [facility].
Original Note:
Patient is observation, and physical therapy recommend skilled placement will review options with patient skilled options, patient was at [facility] skilled in past.
Plan; Skilled placement with HD.
[2024-10-29 12:24] LABS: Hematocrit 30.0 % (39.0-52.0); Hemoglobin 9.3 g/dL (13.0-18.0); Mean Corp Hgb Conc. 31.0 g/dL (33.0-37.0); Mean Corpuscular Volume 80.0 fL (80.0-94.0); Nucleated Red Blood Cells % 0 % (-); Platelet Count 159 10^3/uL (130-400); Red Cell Dist. Width 18.3 % (11.5-14.5)
[2024-10-29 13:08] LABS: Blood Urea Nitrogen 34 mg/dl (9-20); Calcium 9.1 mg/dl (8.4-10.2); Carbon Dioxide 29 mmol/L (22-30); Chloride 97 mmol/L (98-107); Estimated Creatinine Clearance 15 ml/min; Glucose 121 mg/dl (70-99); Potassium 3.8 mmol/L (3.5-5.1); Sodium 133 mmol/L (135-145); eGFR 16.98
--- NOTE | 2024-10-29 13:32 | W.PN.HOSP.TC ---
Today's Communication/Plan
-
Assessment / Plan
Assessment / Plan
General: No Apparent Distress, Comfortable, chronically ill-appearing
HEENT: NormoCephalic, Moist mucous membranes, Atraumatic
Respiratory: Clear and Non Labored Respirations
Cardiac: S1/S2 and Regular Rhythm; left upper extremity AV fistula
GI: Soft, Non Tender, Non Distended and Normal Bowel Sounds
Musculoskeletal: No Edema, right chest port
Skin: Warm and dry
: NO Viera
Neuro: Awake, Alert, Nonfocal/grossly intact
Psych: Calm and cooperative
Mr. Shore is a 73-year-old male with a medical history of HFrEF, paroxysmal A-fib, ESRD CAD (status post stents), multiple myeloma, amyloidosis, chemo induced peripheral neuropathy, depression, and anemia of chronic disease who presented with
generalized weakness. He has been too weak recently to pursue any further chemotherapy, last treatment was many months ago. He did miss his dialysis session on Sunday (day of admission). He has been admitted for further evaluation and management
Generalized weakness:
- Suspect secondary to multiple comorbidities and subsequent deconditioning including due to multiple myeloma, has been too weak to pursue any further chemotherapy for many months
- PT/OT recommending SNF
- No evidence of acute infection
- Discussed goals of care with the patient, his PCP who is also a close friend recommended hospice care, he is not sure if he is ready for that yet especially because that would mean abruptly discontinuing dialysis which would precipitate a rapid
decline, patient asked that I discuss updates with his ex- Jannette with whom he is still very close, Jannette requested more information about palliative care, palliative team contacted
ESRD:
- Continue HD MWF
CAD:
- Chronic, stable
- Continue aspirin and statin
Chronic HFrEF:
- Currently compensated
- Continue afterload reduction with Imdur 30 mg daily
Anemia:
- Due to chronic disease, stable
- Monitor
Hyponatremia:
- Chronic, appears at baseline
- Clinically insignificant
Hyperkalemia:
- Mild potassium 5.2 initially, now resolved
- Will monitor with dialysis
DVT prophylaxis: SCDs
CODE STATUS: Full code
Total time spent on today's encounter was 58 minutes
Anticipated Discharge: 24 - 48 hours
Subjective/Interval History
-
Date of Service: October 29, 2024
Patient was seen and examined at bedside this morning. Still feeling generally weak although slightly better than yesterday. Was dialyzed yesterday and will be dialyzed again tomorrow. Discussed goals of care with the patient and with his ex-
Jannette. They would like more information on palliative care.
Objective Data
-
Labs:
Laboratory Results
10/29/24
12:15
WBC 4.4 L
Hgb 9.3 L
Hct 30.0 L
Plt Count 159
Sodium 133 L
Potassium 3.8 D
Chloride 97 L
Carbon Dioxide 29
BUN 34 H
Creatinine 3.6 H
Glucose 121 H
Calcium 9.1
Vital Signs:
Vital Signs
Temp Pulse Resp BP Pulse Ox
98.5 F 67 12 114/62 96
10/29/24 11:25 10/29/24 11:25 10/29/24 11:25 10/29/24 11:25 10/29/24 12:27
I&O
10/28/24 10/29/24 10/30/24
06:59 06:59 06:59
Intake Total 240 / 240 720 / 720
Output Total 515 / 515 100 / 100
Balance -275 / -275 620 / 620
Review of Systems
-
History Source: Patient
All other systems: Reviewed and negative
Constitutional: Reports Fatigue and Weakness
Physical Exam
-
General: No Apparent Distress and Appears Chronically Ill
[2024-10-29 15:24] VITALS: BP 145/72
[2024-10-29 19:00] VITALS: BP 118/63
[2024-10-29] MEDS: RISPERDAL 0.25 MG PO (21:46)
[2024-10-29] MEDS: SENOKOT 8.6 MG PO (21:46)
[2024-10-29 23:14] VITALS: BP 127/63
[2024-10-30] MEDS: HEPARIN 5000 UNITS SC ×4 (00:23→23:59)
[2024-10-30 03:00] VITALS: BP 119/59
[2024-10-30 06:00] VITALS: BMI 18.1
[2024-10-30 07:40] VITALS: BP 124/66
[2024-10-30] MEDS: RENVELA 800 MG PO ×2 (08:25→16:58)
[2024-10-30] MEDS: NEURONTIN 100 MG PO ×3 (08:26→22:05)
[2024-10-30] MEDS: IMDUR (EXTENDED RELEASE) 30 MG PO (08:28)
[2024-10-30] MEDS: ASPIR LOW (ENTERIC COATED) 81 MG PO (08:28)
[2024-10-30] MEDS: ZOVIRAX 200 MG PO ×2 (08:28→20:02)
[2024-10-30] MEDS: LAMICTAL 100 MG PO ×2 (08:28→20:01)
[2024-10-30] MEDS: CRESTOR 10 MG PO (08:28)
--- NOTE | 2024-10-30 09:30 | PTCARENOTE ---
patient Hr in 40's, not sustained, having episodes of pauses less than 2s. Pt asymptomatic at this time. Hospitalist made aware. No new orders at this time. Plan of care ongoing.
--- NOTE | 2024-10-30 09:57 | CM ---
Addendum entered by Brooke Delgado 10/30/24 10:14:
If patient wishes to pursue Palliative Care Services, referral can be sent via [facility] to [facility]; [address] [place] [address]; phone [phone]; (primary contact was informed that credit card needs to be kept on
file for every patient)
Addendum entered by Brooke Delgado 10/30/24 10:08:
Plan: Discharge to SNF facility that supports HD therapy when medically stable; pending bed availability and authorization approval
Original Note:
Spoke with patient's primary contact via phone to discuss SNF referral responses: [facility] declined; [facility] is a maybe
[2024-10-30 11:07] VITALS: BP 89/45
[2024-10-30] MEDS: ZYLOPRIM 100 MG PO (11:36)
[2024-10-30] MEDS: FLEXBUMIN 25% FOR HEMODIALYSIS 12.5 GRAMS IV ×2 (12:50→15:00)
[2024-10-30] MEDS: MANNITOL 25% 12.5 GRAMS IV ×2 (12:55→15:06)
[2024-10-30] MEDS: RETACRIT 6000 UNITS IV (13:13)
[2024-10-30 13:25] LABS: Hematocrit 28.0 % (39.0-52.0); Hemoglobin 8.9 g/dL (13.0-18.0); Mean Corp Hgb Conc. 31.8 g/dL (33.0-37.0); Mean Corpuscular Volume 79.5 fL (80.0-94.0); Platelet Count 159 10^3/uL (130-400); Red Cell Dist. Width 18.2 % (11.5-14.5)
[2024-10-30 13:53] LABS: Blood Urea Nitrogen 43 mg/dl (9-20); Calcium 9.4 mg/dl (8.4-10.2); Carbon Dioxide 28 mmol/L (22-30); Chloride 97 mmol/L (98-107); Estimated Creatinine Clearance 13 ml/min; Glucose 104 mg/dl (70-99); Potassium 4.1 mmol/L (3.5-5.1); Sodium 133 mmol/L (135-145); eGFR 14.11
--- NOTE | 2024-10-30 14:19 | W.PN.HOSP.TC ---
Today's Communication/Plan
-
Assessment / Plan
Assessment / Plan
General: No Apparent Distress, Comfortable, chronically ill-appearing
HEENT: NormoCephalic, Moist mucous membranes, Atraumatic
Respiratory: Clear and Non Labored Respirations
Cardiac: S1/S2 and Regular Rhythm; left upper extremity AV fistula
GI: Soft, Non Tender, Non Distended and Normal Bowel Sounds
Musculoskeletal: No Edema, right chest port
Skin: Warm and dry
: NO Viera
Neuro: Awake, Alert, Nonfocal/grossly intact
Psych: Calm and cooperative
Mr. Shore is a 73-year-old male with a medical history of HFrEF, paroxysmal A-fib, ESRD CAD (status post stents), multiple myeloma, amyloidosis, chemo induced peripheral neuropathy, depression, and anemia of chronic disease who presented with
generalized weakness. He has been too weak recently to pursue any further chemotherapy, last treatment was many months ago. He did miss his dialysis session on Sunday (day of admission). He has been admitted for further evaluation and management
Generalized weakness:
- Suspect secondary to multiple comorbidities and subsequent deconditioning including due to multiple myeloma, has been too weak to pursue any further chemotherapy for many months
- PT/OT recommending SNF, placement pending
- No evidence of acute infection
- Discussed goals of care with the patient, change CODE STATUS to DNR, patient is not sure if he is ready for hospice care yet especially because that would mean abruptly discontinuing dialysis which would precipitate a rapid decline, patient and
his ex- (with whom he is still close) resting more information about palliative care which was provided, patient will discuss further with his family
- Medically stable, remains significantly weak and deconditioned, awaiting SNF placement
ESRD:
- Continue HD MWF
CAD:
- Chronic, stable
- Continue aspirin and statin
Chronic HFrEF:
- Currently compensated
- Continue afterload reduction with Imdur 30 mg daily
Anemia:
- Due to chronic disease, stable
- Monitor
Hyponatremia:
- Chronic, appears at baseline
- Clinically insignificant
Hyperkalemia:
- Mild potassium 5.2 initially, now resolved
- Will monitor with dialysis
DVT prophylaxis: SCDs
CODE STATUS: Full code
Total time spent on today's encounter was 56 minutes
Anticipated Discharge: 24 - 48 hours
Subjective/Interval History
-
Date of Service: October 30, 2024
Patient was seen and examined at bedside this morning his ex- and his daughter were also present. We had a lengthy discussion about goals of care. He requested that his CODE STATUS be changed to DNR.
Objective Data
-
Labs:
Laboratory Results
10/30/24
12:41
WBC 4.7 L
Hgb 8.9 L
Hct 28.0 L
Plt Count 159
Sodium 133 L
Potassium 4.1
Chloride 97 L
Carbon Dioxide 28
BUN 43 H
Creatinine 4.2 H*
Glucose 104 H
Calcium 9.4
Vital Signs:
Vital Signs
Temp Pulse Resp BP Pulse Ox
98.1 F 67 16 93/50 95
10/30/24 11:07 10/30/24 12:53 10/30/24 11:07 10/30/24 12:53 10/30/24 11:07
I&O
10/29/24 10/30/24 10/31/24
06:59 06:59 06:59
Intake Total 720 / 720 360 / 360
Output Total 100 / 100 250 / 250
Balance 620 / 620 110 / 110
Review of Systems
-
History Source: Patient
All other systems: Reviewed and negative
Physical Exam
-
General: No Apparent Distress and Appears Chronically Ill
--- NOTE | 2024-10-30 14:20 | W.PN.NEPH.HD ---
Assessment
-
pt seen during HD
vitals stable
BP soft s/p midodrine
limited UF with soft BP even current wt higher than EDW
AVF functioning well
Progress Note - Hemodialysis
-
Date of Service: October 30, 2024
Duration: 30 minutes and 3 hours
Potassium Bath: 3
Calcium Bath: 2.5
Opti-Dialyzer: 160
Ultrafiltration: Other (1-1.5)
Blood Flow: 400
Dialysate Flow: 600
Heparin: no
EPO: 6000
[2024-10-30 15:13] VITALS: BP 115/62
--- NOTE | 2024-10-30 17:32 | PTCARENOTE ---
Patient received HD today. 1 kilo off.
[2024-10-30 19:27] VITALS: BP 117/57
[2024-10-30] MEDS: SENOKOT 8.6 MG PO (22:05)
[2024-10-30] MEDS: RISPERDAL 0.25 MG PO (22:05)
[2024-10-30 23:21] VITALS: BP 131/69
[2024-10-31] VITALS (9 sets, daily range): BP systolic 100–127; BP diastolic 43–63; PULSE 68; BMI 17.9
[2024-10-31 08:19] LABS: Hematocrit 28.2 % (39.0-52.0); Hemoglobin 9.2 g/dL (13.0-18.0); Mean Corp Hgb Conc. 32.6 g/dL (33.0-37.0); Mean Corpuscular Volume 78.8 fL (80.0-94.0); Platelet Count 164 10^3/uL (130-400); Red Cell Dist. Width 17.8 % (11.5-14.5)
[2024-10-31 08:40] LABS: Blood Urea Nitrogen 21 mg/dl (9-20); Calcium 8.8 mg/dl (8.4-10.2); Carbon Dioxide 30 mmol/L (22-30); Chloride 95 mmol/L (98-107); Estimated Creatinine Clearance 20 ml/min; Glucose 82 mg/dl (70-99); Magnesium 1.9 mg/dl (1.6-2.3); Potassium 4.1 mmol/L (3.5-5.1); Sodium 131 mmol/L (135-145); eGFR 23.98
--- NOTE | 2024-10-31 08:46 | W.PN.NEPH.HD ---
Assessment
-
Patient seen on dialysis
Patient without complaints other than continued weakness
Systolic blood pressure 91, midodrine provided to support UF on dialysis
Next dialysis will be planned for Sunday
HD via AV fistula with good function
Progress Note - Hemodialysis
-
Date of Service: October 31, 2024
Duration: 30 minutes and 3 hours
Potassium Bath: 3
Calcium Bath: 2.5
Opti-Dialyzer: 160
Ultrafiltration: Other (1-2kG as hemodynamically tolerated)
Blood Flow: 400
Dialysate Flow: 600
Heparin: none
EPO: 6000
[2024-10-31] MEDS: FLEXBUMIN 25% FOR HEMODIALYSIS 12.5 GRAMS IV ×2 (08:52→10:36)
[2024-10-31] MEDS: MANNITOL 25% 12.5 GRAMS IV ×2 (08:52→10:35)
[2024-10-31] MEDS: RETACRIT 6000 UNITS IV (08:53)
[2024-10-31] MEDS: HEPARIN SC (09:51)
[2024-10-31] MEDS: NEURONTIN PO (09:51)
--- NOTE | 2024-10-31 11:56 | CM ---
Chart reviewed and will need updated PT/OT notes for skilled placement, patient is currently receiving HD and plan is for skilled placement with HD, no HD beds at [facility], and case folder will follow up with [facility] for
skilled placement.
Plan; Skilled placement with HD.
[2024-10-31] MEDS: ZOVIRAX 200 MG PO ×2 (12:01→19:41)
[2024-10-31] MEDS: IMDUR (EXTENDED RELEASE) 30 MG PO (12:01)
[2024-10-31] MEDS: LAMICTAL 100 MG PO ×2 (12:01→19:41)
[2024-10-31] MEDS: ASPIR LOW (ENTERIC COATED) 81 MG PO (12:01)
[2024-10-31] MEDS: CRESTOR 10 MG PO (12:01)
[2024-10-31] MEDS: RENVELA 800 MG PO ×2 (12:02→16:09)
[2024-10-31] MEDS: ZYLOPRIM 100 MG PO (12:02)
--- NOTE | 2024-10-31 12:28 | W.PN.HOSP.TC ---
Today's Communication/Plan
-
Assessment / Plan
Assessment / Plan
General: No Apparent Distress, Comfortable, chronically ill-appearing
HEENT: NormoCephalic, Moist mucous membranes, Atraumatic
Respiratory: Clear and Non Labored Respirations
Cardiac: S1/S2 and Regular Rhythm; left upper extremity AV fistula
GI: Soft, Non Tender, Non Distended and Normal Bowel Sounds
Musculoskeletal: No Edema, right chest port
Skin: Warm and dry
: NO Viera
Neuro: Awake, Alert, Nonfocal/grossly intact
Psych: Calm and cooperative
Mr. Shore is a 73-year-old male with a medical history of HFrEF, paroxysmal A-fib, ESRD CAD (status post stents), multiple myeloma, amyloidosis, chemo induced peripheral neuropathy, depression, and anemia of chronic disease who presented with
generalized weakness. He has been too weak recently to pursue any further chemotherapy, last treatment was many months ago. He did miss his dialysis session on Sunday (day of admission). He has been admitted for further evaluation and management
Generalized weakness:
- Suspect secondary to multiple comorbidities and subsequent deconditioning including due to multiple myeloma, has been too weak to pursue any further chemotherapy for many months
- PT/OT recommending SNF, placement pending
- No evidence of acute infection
- Discussed goals of care with the patient, change CODE STATUS to DNR, patient is not sure if he is ready for hospice care yet especially because that would mean abruptly discontinuing dialysis which would precipitate a rapid decline, patient and
his ex- (with whom he is still close) resting more information about palliative care which was provided, patient will discuss further with his family
- Medically stable, remains significantly weak and deconditioned, awaiting SNF placement
ESRD:
- Receives HD MWF
- Continue dialysis per nephrology while inpatient
CAD:
- Chronic, stable
- Continue aspirin and statin
Chronic HFrEF:
- Currently compensated
- Continue afterload reduction with Imdur 30 mg daily
Anemia:
- Due to chronic disease, stable
- Monitor
Hyponatremia:
- Chronic, appears at baseline
- Clinically insignificant
Hyperkalemia:
- Mild potassium 5.2 initially, now resolved
- Will monitor with dialysis
DVT prophylaxis: SCDs
CODE STATUS: Full code
Total time spent on today's encounter was 46 minutes
Anticipated Discharge: 24 - 48 hours
Subjective/Interval History
-
Date of Service: October 31, 2024
Patient was seen and examined at bedside this morning. Received another session of dialysis today. Relatively comfortable. Awaiting SNF placement.
Objective Data
-
Labs:
Laboratory Results
10/31/24
08:09
WBC 4.5 L
Hgb 9.2 L
Hct 28.2 L
Plt Count 164
Sodium 131 L
Potassium 4.1
Chloride 95 L
Carbon Dioxide 30
BUN 21 H
Creatinine 2.7 H
Glucose 82
Calcium 8.8
Vital Signs:
Vital Signs
Temp Pulse Resp BP Pulse Ox
97.8 F 62 18 118/50 99
10/31/24 11:50 10/31/24 11:50 10/31/24 11:50 10/31/24 11:50 10/31/24 11:50
I&O
10/30/24 10/31/24 11/01/24
06:59 06:59 06:59
Intake Total 360 / 360 510 / 510
Output Total 250 / 250 100 / 100
Balance 110 / 110 410 / 410
Review of Systems
-
History Source: Patient
All other systems: Reviewed and negative
Constitutional: Reports Weakness
Physical Exam
-
General: No Apparent Distress and Appears Chronically Ill
[2024-10-31] MEDS: NEURONTIN 100 MG PO ×2 (16:09→21:44)
[2024-10-31] MEDS: HEPARIN 5000 UNITS SC ×2 (16:09→23:58)
[2024-10-31] MEDS: SENOKOT 8.6 MG PO (21:44)
[2024-10-31] MEDS: RISPERDAL 0.25 MG PO (21:44)
[2024-11-01 03:05] VITALS: BP 101/52
[2024-11-01 05:38] VITALS: BMI 18.0
[2024-11-01 07:24] VITALS: BP 108/55
[2024-11-01] MEDS: LAMICTAL 100 MG PO ×2 (08:20→19:23)
[2024-11-01] MEDS: ZOVIRAX 200 MG PO ×2 (08:20→19:23)
[2024-11-01] MEDS: ZYLOPRIM 100 MG PO (08:20)
[2024-11-01] MEDS: CRESTOR 10 MG PO (08:20)
[2024-11-01] MEDS: NEURONTIN 100 MG PO ×3 (08:20→21:16)
[2024-11-01] MEDS: ASPIR LOW (ENTERIC COATED) 81 MG PO (08:20)
[2024-11-01] MEDS: HEPARIN 5000 UNITS SC ×3 (08:20→23:35)
[2024-11-01] MEDS: RENVELA 800 MG PO ×2 (08:20→16:45)
[2024-11-01] MEDS: IMDUR (EXTENDED RELEASE) 30 MG PO (08:20)
--- NOTE | 2024-11-01 09:48 | W.PN.NEPH.PH ---
Today's Communication / Plan
-
For dialysis on Sunday
Appears clinically stable
SNF placement pending
Assessment/Plan
-
Impression:
Weakness
metabolic encephalopathy
Hyponatremia
Hyperphosphatemia
End-stage renal disease Sunday [place] unit
Recurrent left pleural effusion, s/p multiple thoracentesis s/p recent pleurodesis?
Anemia
Coronary artery disease with multiple stents
Atrial fibrillation
Heart failure reduced ejection fraction
Left AVF
AL amyloidosis/multiple myeloma
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
chronic pancytopenia
Asthma, mild intermittent
Anxiety
Gout
Hyperlipidemia
mild hyponatremia
Plan:
hemodynamically stable
next HD plan Sunday
Maintain appropriate fluid restriction at 40 ounces daily as well as sodium and potassium restriction
- Midodrine to be provided for chronic hypotension
- HEMANTH therapy will be provided for anemia, will check iron stores as well on dialysis
- Maintain sevelamer for hyperphosphatemia
-
-
Date of Service: November 01, 2024
CC / HPI / ROS
-
Chief Complaint:
ESRD
History of Present Illness:
ESRD Sunday
Hemodynamically stable
tolerated HD yesterday
Review of Systems:
no dysuria
Afebrile
Weakness
Labs
-
Labs:
WBC 4.5 10^3/uL (4.8-10.8) L 10/31/24 08:09
RBC 3.58 10^6/uL (4.70-6.10) L 10/31/24 08:09
Hgb 9.2 g/dL (13.0-18.0) L 10/31/24 08:09
Hct 28.2 % (39.0-52.0) L 10/31/24 08:09
Plt Count 164 10^3/uL (130-400) 10/31/24 08:09
Sodium 131 mmol/L (135-145) L 10/31/24 08:09
Potassium 4.1 mmol/L (3.5-5.1) 10/31/24 08:09
Chloride 95 mmol/L (98-107) L 10/31/24 08:09
Carbon Dioxide 30 mmol/L (22-30) 10/31/24 08:09
BUN 21 mg/dl (9-20) H 10/31/24 08:09
Creatinine 2.7 mg/dL (0.7-1.3) H 10/31/24 08:09
eGFR 23.98 10/31/24 08:09
Glucose 82 mg/dl (70-99) 10/31/24 08:09
Calcium 8.8 mg/dl (8.4-10.2) 10/31/24 08:09
Albumin 3.5 g/dl (3.5-5.0) 10/27/24 10:59
Physical Exam
-
Vital Signs:
Vital Signs
Temp Pulse Resp BP Pulse Ox
98.4 F 61 16 108/55 98
11/01/24 07:24 11/01/24 08:20 11/01/24 07:24 11/01/24 08:20 11/01/24 07:24
Cardiovascular:: Regular rate and rhythm
Respiratory:: Bilateral: CTA
Lung Excursion:: Normal
Abdomen:: Nontender and Soft
Bowel Sounds:: Normal
Extremity Edema:: None: Bilateral:
Viera Catheter: No
--- NOTE | 2024-11-01 10:23 | W.PN.HOSP.TC ---
Today's Communication/Plan
-
Assessment / Plan
Assessment / Plan
General: No Apparent Distress, Comfortable, chronically ill-appearing
HEENT: NormoCephalic, Moist mucous membranes, Atraumatic
Respiratory: Clear and Non Labored Respirations
Cardiac: S1/S2 and Regular Rhythm; left upper extremity AV fistula
GI: Soft, Non Tender, Non Distended and Normal Bowel Sounds
Musculoskeletal: No Edema, right chest port
Skin: Warm and dry
: NO Viera
Neuro: Awake, Alert, Nonfocal/grossly intact
Psych: Calm and cooperative
Mr. Shore is a 73-year-old male with a medical history of HFrEF, paroxysmal A-fib, ESRD CAD (status post stents), multiple myeloma, amyloidosis, chemo induced peripheral neuropathy, depression, and anemia of chronic disease who presented with
generalized weakness. He has been too weak recently to pursue any further chemotherapy, last treatment was many months ago. He did miss his dialysis session on Sunday (day of admission). He has been admitted for further evaluation and management
Generalized weakness:
- Suspect secondary to multiple comorbidities and subsequent deconditioning including due to multiple myeloma, has been too weak to pursue any further chemotherapy for many months
- PT/OT recommending SNF, placement pending
- No evidence of acute infection
- Discussed goals of care with the patient, change CODE STATUS to DNR, patient is not sure if he is ready for hospice care yet especially because that would mean abruptly discontinuing dialysis which would precipitate a rapid decline, patient and
his ex- (with whom he is still close) requested more information about palliative care which was provided, patient has been discussing further with his family
- Medically stable, remains significantly weak and deconditioned, awaiting SNF placement with HD capabilities
ESRD:
- Receives HD MWF
- Continue dialysis per nephrology while inpatient
CAD:
- Chronic, stable
- Continue aspirin and statin
Chronic HFrEF:
- Currently compensated
- Continue afterload reduction with Imdur 30 mg daily
Anemia:
- Due to chronic disease, stable
- Monitor
Hyponatremia:
- Chronic, appears at baseline
- Clinically insignificant
Hyperkalemia:
- Mild potassium 5.2 initially, now resolved
- Will monitor with dialysis
DVT prophylaxis: SCDs
CODE STATUS: DNR
Total time spent on today's encounter was 44 minutes
Anticipated Discharge: 24 - 48 hours
Subjective/Interval History
-
Date of Service: November 01, 2024
Patient was seen and examined at bedside this morning. Clinically stable. He has been having goals of care discussions with his family over the past few days which have been taxing on him. Awaiting SNF placement.
Objective Data
-
Vital Signs:
Vital Signs
Temp Pulse Resp BP Pulse Ox
98.4 F 61 16 108/55 98
11/01/24 07:24 11/01/24 08:20 11/01/24 07:24 11/01/24 08:20 11/01/24 07:24
I&O
10/31/24 11/01/24 11/02/24
06:59 06:59 06:59
Intake Total 510 / 510 660 / 660
Output Total 100 / 100 100 / 100
Balance 410 / 410 560 / 560
Review of Systems
-
History Source: Patient
All other systems: Reviewed and negative
Physical Exam
-
General: No Apparent Distress and Appears Chronically Ill
[2024-11-01 11:45] VITALS: BP 114/57
[2024-11-01 15:00] VITALS: BP 133/58
[2024-11-01 19:08] VITALS: BP 131/62
[2024-11-01] MEDS: SENOKOT 8.6 MG PO (21:16)
[2024-11-01] MEDS: RISPERDAL 0.25 MG PO (21:16)
[2024-11-01 23:22] VITALS: BP 107/50
[2024-11-02 03:37] VITALS: BP 113/65
[2024-11-02 06:00] VITALS: BMI 18.3
[2024-11-02 07:37] VITALS: BP 123/55
[2024-11-02] MEDS: ASPIR LOW (ENTERIC COATED) 81 MG PO (08:01)
[2024-11-02] MEDS: ZOVIRAX 200 MG PO ×2 (08:01→20:19)
[2024-11-02] MEDS: ZYLOPRIM 100 MG PO (08:02)
[2024-11-02] MEDS: RENVELA 800 MG PO ×2 (08:03→16:30)
[2024-11-02] MEDS: CRESTOR 10 MG PO (08:03)
[2024-11-02] MEDS: NEURONTIN 100 MG PO ×3 (08:03→20:19)
[2024-11-02] MEDS: LAMICTAL 100 MG PO ×2 (08:03→20:19)
[2024-11-02] MEDS: IMDUR (EXTENDED RELEASE) 30 MG PO (08:03)
[2024-11-02] MEDS: HEPARIN 5000 UNITS SC ×2 (08:04→16:31)
--- NOTE | 2024-11-02 09:53 | W.PN.NEPH.PH ---
Today's Communication / Plan
-
Dialysis tomorrow
Assessment/Plan
-
Impression:
Weakness
metabolic encephalopathy
Hyponatremia
Hyperphosphatemia
End-stage renal disease Sunday [place] unit
Recurrent left pleural effusion, s/p multiple thoracentesis s/p recent pleurodesis?
Anemia
Coronary artery disease with multiple stents
Atrial fibrillation
Heart failure reduced ejection fraction
Left AVF
AL amyloidosis/multiple myeloma
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
chronic pancytopenia
Asthma, mild intermittent
Anxiety
Gout
Hyperlipidemia
mild hyponatremia
Plan:
hemodynamically stable
next HD plan Sunday, orders provided
Maintain appropriate fluid restriction at 40 ounces daily as well as sodium and potassium restriction
- Midodrine to be provided for chronic hypotension
- HEMANTH therapy will be provided for anemia, will check iron stores as well on dialysis
- Maintain sevelamer for hyperphosphatemia
-
-
Date of Service: November 02, 2024
CC / HPI / ROS
-
Chief Complaint:
ESRD
History of Present Illness:
ESRD Sunday
Hemodynamically stable
Review of Systems:
no dysuria
Afebrile
Weakness
Labs
-
Labs:
WBC 4.5 10^3/uL (4.8-10.8) L 10/31/24 08:09
RBC 3.58 10^6/uL (4.70-6.10) L 10/31/24 08:09
Hgb 9.2 g/dL (13.0-18.0) L 10/31/24 08:09
Hct 28.2 % (39.0-52.0) L 10/31/24 08:09
Plt Count 164 10^3/uL (130-400) 10/31/24 08:09
Sodium 131 mmol/L (135-145) L 10/31/24 08:09
Potassium 4.1 mmol/L (3.5-5.1) 10/31/24 08:09
Chloride 95 mmol/L (98-107) L 10/31/24 08:09
Carbon Dioxide 30 mmol/L (22-30) 10/31/24 08:09
BUN 21 mg/dl (9-20) H 10/31/24 08:09
Creatinine 2.7 mg/dL (0.7-1.3) H 10/31/24 08:09
eGFR 23.98 10/31/24 08:09
Glucose 82 mg/dl (70-99) 10/31/24 08:09
Calcium 8.8 mg/dl (8.4-10.2) 10/31/24 08:09
Albumin 3.5 g/dl (3.5-5.0) 10/27/24 10:59
Physical Exam
-
Vital Signs:
Vital Signs
Temp Pulse Resp BP Pulse Ox
99.0 F 72 17 123/55 98
11/02/24 07:37 11/02/24 08:01 11/02/24 07:37 11/02/24 08:01 11/02/24 07:37
Cardiovascular:: Regular rate and rhythm
Respiratory:: Bilateral: CTA
Lung Excursion:: Normal
Abdomen:: Nontender and Soft
Bowel Sounds:: Normal
Extremity Edema:: None: Bilateral:
Viera Catheter: No
[2024-11-02 11:29] VITALS: BP 119/51
--- NOTE | 2024-11-02 11:50 | W.PN.HOSP.TC ---
Addendum entered and electronically signed by Fidencio Dow, DO 11/02/24 11:59:
Will need outpatient labs to monitor serum itraconazole levels with dosage adjustments as needed
Addendum entered and electronically signed by Fidencio Dow, DO 11/02/24 11:57:
Additional diagnosis
Onychomycosis:
- Bilateral fingernails
- Started on itraconazole 200 mg daily for 6 weeks
Original Note:
Today's Communication/Plan
-
Assessment / Plan
Assessment / Plan
General: No Apparent Distress, Comfortable, chronically ill-appearing
HEENT: NormoCephalic, Moist mucous membranes, Atraumatic
Respiratory: Clear and Non Labored Respirations
Cardiac: S1/S2 and Regular Rhythm; left upper extremity AV fistula
GI: Soft, Non Tender, Non Distended and Normal Bowel Sounds
Musculoskeletal: No Edema, right chest port
Skin: Warm and dry
: NO Viera
Neuro: Awake, Alert, Nonfocal/grossly intact
Psych: Calm and cooperative
Mr. Shore is a 73-year-old male with a medical history of HFrEF, paroxysmal A-fib, ESRD CAD (status post stents), multiple myeloma, amyloidosis, chemo induced peripheral neuropathy, depression, and anemia of chronic disease who presented with
generalized weakness. He has been too weak recently to pursue any further chemotherapy, last treatment was many months ago. He did miss his dialysis session on Sunday (day of admission). He has been admitted for further evaluation and management
Generalized weakness:
- Suspect secondary to multiple comorbidities and subsequent deconditioning including due to multiple myeloma, has been too weak to pursue any further chemotherapy for many months
- PT/OT recommending SNF, placement pending
- No evidence of acute infection
- Discussed goals of care with the patient, change CODE STATUS to DNR, patient is not sure if he is ready for hospice care yet especially because that would mean abruptly discontinuing dialysis which would precipitate a rapid decline, patient and
his ex- (with whom he is still close) requested more information about palliative care which was provided, patient has been discussing further with his family
- Medically stable, remains significantly weak and deconditioned, awaiting SNF placement with HD capabilities
ESRD:
- Receives HD MWF
- Continue dialysis per nephrology while inpatient
CAD:
- Chronic, stable
- Continue aspirin and statin
Chronic HFrEF:
- Currently compensated
- Continue afterload reduction with Imdur 30 mg daily
Anemia:
- Due to chronic disease, stable
- Monitor
Hyponatremia:
- Chronic, appears at baseline
- Clinically insignificant
Hyperkalemia:
- Mild potassium 5.2 initially, now resolved
- Will monitor with dialysis
DVT prophylaxis: SCDs
CODE STATUS: DNR
Total time spent on today's encounter was 40 minutes
Anticipated Discharge: 24 - 48 hours
Subjective/Interval History
-
Date of Service: November 02, 2024
Patient was seen and examined at bedside this morning. Comfortable but tired. Awaiting SNF placement.
Objective Data
-
Vital Signs:
Vital Signs
Temp Pulse Resp BP Pulse Ox
98.7 F 74 18 119/51 99
11/02/24 11:29 11/02/24 11:29 11/02/24 11:29 11/02/24 11:29 11/02/24 11:29
I&O
11/01/24 11/02/24 11/03/24
06:59 06:59 06:59
Intake Total 660 / 660 1020 / 1020
Output Total 100 / 100 225 / 225
Balance 560 / 560 795 / 795
Review of Systems
-
History Source: Patient
All other systems: Reviewed and negative
Physical Exam
-
General: No Apparent Distress and Appears Chronically Ill
[2024-11-02] MEDS: SPORANOX 200 MG PO (13:10)
[2024-11-02 15:27] VITALS: BP 110/42
[2024-11-02 19:15] VITALS: BP 121/56
[2024-11-02] MEDS: RISPERDAL 0.25 MG PO (20:19)
[2024-11-02] MEDS: SENOKOT 8.6 MG PO (20:19)
[2024-11-02 23:13] VITALS: BP 121/57
[2024-11-03] MEDS: HEPARIN 5000 UNITS SC ×3 (00:01→17:12)
[2024-11-03 03:21] VITALS: BP 129/52
[2024-11-03 05:35] LABS: Hematocrit 27.2 % (39.0-52.0); Hemoglobin 8.4 g/dL (13.0-18.0)
[2024-11-03 05:40] VITALS: BMI 18.5
[2024-11-03 06:33] LABS: Carbon Dioxide 27 mmol/L (22-30); Potassium 5.0 mmol/L (3.5-5.1); Sodium 134 mmol/L (135-145)
[2024-11-03 06:50] LABS: Chloride 100 mmol/L (98-107)
[2024-11-03 07:46] VITALS: BP 120/61
[2024-11-03] MEDS: ZYLOPRIM 100 MG PO (08:43)
[2024-11-03] MEDS: LAMICTAL 100 MG PO ×2 (08:43→20:10)
[2024-11-03] MEDS: ZOVIRAX 200 MG PO ×2 (08:43→20:10)
[2024-11-03] MEDS: ASPIR LOW (ENTERIC COATED) 81 MG PO (08:43)
[2024-11-03] MEDS: SPORANOX 200 MG PO (08:43)
[2024-11-03] MEDS: IMDUR (EXTENDED RELEASE) 30 MG PO (08:43)
[2024-11-03] MEDS: RENVELA 800 MG PO ×2 (08:44→17:13)
[2024-11-03] MEDS: NEURONTIN 100 MG PO ×3 (08:44→21:16)
[2024-11-03] MEDS: CRESTOR 10 MG PO (08:45)
[2024-11-03 11:32] VITALS: BP 125/61
[2024-11-03] MEDS: RETACRIT 8000 UNITS IV (14:00)
--- NOTE | 2024-11-03 14:13 | W.PN.NEPH.HD ---
Progress Note - Hemodialysis
-
Date of Service: November 03, 2024
Duration: 30 minutes and 3 hours
Potassium Bath: 3
Calcium Bath: 2.5
Opti-Dialyzer: 160
Ultrafiltration: Other (1-2kG as hemodynamically tolerated)
Blood Flow: 400
Dialysate Flow: 600
Heparin: none
EPO: 6000
[2024-11-03] MEDS: MANNITOL 25% 12.5 GRAMS IV (14:40)
--- NOTE | 2024-11-03 15:01 | CM ---
CM following re: discharge planning.
Pt stated he would prefer to go to [facility] where he was before and they transported him to HD treatment center.
CM spoke to CC at [facility] claims director Angela [phone] and requested updated pt's clinical faxed via [employer] for a review.
D/C plan: possible [facility].
CM will follow with discharge plan updates as hospitalization progresses
[2024-11-03 15:37] VITALS: BP 100/54
--- NOTE | 2024-11-03 15:48 | W.PN.HOSP.TC ---
Today's Communication/Plan
-
HD
Placement to SNF
Assessment / Plan
Assessment / Plan
Mr. Shore is a 73-year-old male with a medical history of HFrEF, paroxysmal A-fib, ESRD CAD (status post stents), multiple myeloma, amyloidosis, chemo induced peripheral neuropathy, depression, and anemia of chronic disease who presented with
generalized weakness. He has been too weak recently to pursue any further chemotherapy, last treatment was many months ago. He did miss his dialysis session on Sunday (day of admission). He has been admitted for further evaluation and management
Generalized weakness:
- Suspect secondary to multiple comorbidities and subsequent deconditioning including due to multiple myeloma, has been too weak to pursue any further chemotherapy for many months
- PT/OT recommending SNF, placement pending
- No evidence of acute infection
- Discussed goals of care with the patient, change CODE STATUS to DNR, patient is not sure if he is ready for hospice care yet especially because that would mean abruptly discontinuing dialysis which would precipitate a rapid decline, patient and
his ex- (with whom he is still close) requested more information about palliative care which was provided, patient has been discussing further with his family
- Medically stable, remains significantly weak and deconditioned, awaiting SNF placement with HD capabilities
ESRD:
- Receives HD MWF
- Continue dialysis per nephrology while inpatient
CAD:
- Chronic, stable
- Continue aspirin and statin
Chronic HFrEF:
- Currently compensated
- Continue afterload reduction with Imdur 30 mg daily
Anemia:
- Due to chronic disease, stable
- Monitor
Hyponatremia:
- Chronic, appears at baseline
- Clinically insignificant
Hyperkalemia:
- Mild potassium 5.2 initially, now resolved
- Will monitor with dialysis
DVT prophylaxis: SCDs
CODE STATUS: DNR
Total time spent on today's encounter was 40 minutes
Anticipated Discharge: 24 - 48 hours
Subjective/Interval History
-
Date of Service: November 03, 2024
Objective Data
-
Labs:
Laboratory Results
11/03/24
05:17
Hgb 8.4 L
Hct 27.2 L
Sodium 134 L
Potassium 5.0
Chloride 100
Carbon Dioxide 27
Vital Signs:
Vital Signs
Temp Pulse Resp BP Pulse Ox
98.4 F 61 16 100/54 97
11/03/24 15:37 11/03/24 15:37 11/03/24 15:37 11/03/24 15:37 11/03/24 15:37
I&O
11/02/24 11/03/24 11/04/24
06:59 06:59 06:59
Intake Total 1020 / 1020 800 / 800
Output Total 225 / 225 375 / 375
Balance 795 / 795 425 / 425
Physical Exam
-
General: Well Developed and No Apparent Distress
HEENT: Normocephalic, Atraumatic and Moist Mucous Membranes
Respiratory: Clear to Auscultation
Cardiac: Regular Rhythm and S1/S2; Negative Murmur, Rub or Gallop
GI: Soft, Nontender, Nondistended and Normal Bowel Sounds; Negative Organomegaly
Rectal: Deferred by Provider
Musculoskeletal: No Clubbing, No Cyanosis and No Edema
Skin: Negative Rash
Neuro: Nonfocal/Grossly Intact
[2024-11-03 19:15] VITALS: BP 132/55
[2024-11-03] MEDS: SENOKOT 8.6 MG PO (21:16)
[2024-11-03] MEDS: RISPERDAL 0.25 MG PO (21:16)
[2024-11-03 23:05] VITALS: BP 127/54
--- NOTE | 2024-11-04 01:12 | PTCARENOTE ---
Addendum entered by Jero Garduno RN 11/04/24 03:54:
During 0300 vitals, patient w/ oral temp of 101.1. Patient complaining of feeling 'tired and weak'. LUMBER CARRIER OPERATOR notified. COVID swab ordered and sent. UA ordered - patient to notify RN when needing to void. Blood culture/AM labs ordered. PRN tylenol ordered
and administered - see MAY.
Original Note:
During 2300 vitals, patient w/ oral temp of 100.9 - other vitals remain stable - see worklist. Patient w/ no new complaints. Patient stated he would like to wait to take Tylenol until later. LUMBER CARRIER OPERATOR notified. No new orders at this time.
[2024-11-04 03:12] VITALS: BP 128/63
--- NOTE | 2024-11-04 03:22 | W.PN.UPDATE ---
Update Note
Progress Note Update
RN reports patient is having fevers 100.9, 101 BP 128/63. Hr 64. Pox 96 on room air. Patient with no new complaints. Will order Covid, blood culture and urine culture.
Tylenol ordered.
[2024-11-04 03:32] LABS: COVID-19 Antigen Negative (Negative)
[2024-11-04] MEDS: TYLENOL 650 MG PO (03:45)
[2024-11-04 05:14] VITALS: BMI 18.0
[2024-11-04 06:57] LABS: Hematocrit 28.3 % (39.0-52.0); Hemoglobin 8.7 g/dL (13.0-18.0); Mean Corp Hgb Conc. 30.7 g/dL (33.0-37.0); Mean Corpuscular Volume 80.9 fL (80.0-94.0); Platelet Count 161 10^3/uL (130-400); Red Cell Dist. Width 17.8 % (11.5-14.5)
[2024-11-04 07:00] VITALS: BP 118/58
[2024-11-04] MEDS: CRESTOR 10 MG PO (08:20)
[2024-11-04] MEDS: NEURONTIN 100 MG PO ×3 (08:20→21:09)
[2024-11-04] MEDS: RENVELA 800 MG PO ×2 (08:20→16:53)
[2024-11-04] MEDS: ZYLOPRIM 100 MG PO (08:21)
[2024-11-04] MEDS: IMDUR (EXTENDED RELEASE) 30 MG PO (08:22)
[2024-11-04] MEDS: SPORANOX 200 MG PO (08:22)
[2024-11-04] MEDS: ZOVIRAX 200 MG PO ×2 (08:22→20:23)
[2024-11-04] MEDS: LAMICTAL 100 MG PO ×2 (08:22→20:23)
[2024-11-04] MEDS: ASPIR LOW (ENTERIC COATED) 81 MG PO (08:22)
[2024-11-04] MEDS: HEPARIN 5000 UNITS SC ×4 (08:23→23:23)
[2024-11-04 11:00] VITALS: BP 119/63
--- NOTE | 2024-11-04 13:03 | W.PN.NEPH.PH ---
Today's Communication / Plan
-
Dialysis tomorrow
Assessment/Plan
-
Impression:
Weakness
metabolic encephalopathy
Hyponatremia
Hyperphosphatemia
End-stage renal disease Sunday [place] unit
Recurrent left pleural effusion, s/p multiple thoracentesis s/p recent pleurodesis?
Anemia
Coronary artery disease with multiple stents
Atrial fibrillation
Heart failure reduced ejection fraction
Left AVF
AL amyloidosis/multiple myeloma
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
chronic pancytopenia
Asthma, mild intermittent
Anxiety
Gout
Hyperlipidemia
mild hyponatremia
Plan:
hemodynamically stable
next HD plan Sunday, orders provided
Maintain appropriate fluid restriction at 40 ounces daily as well as sodium and potassium restriction
- Midodrine to be provided for chronic hypotension
- HEMANTH therapy will be provided for anemia, will check iron stores as well on dialysis
- Maintain sevelamer for hyperphosphatemia
-
-
Date of Service: November 04, 2024
CC / HPI / ROS
-
Chief Complaint:
ESRD
History of Present Illness:
ESRD Sunday
Hemodynamically stable
Review of Systems:
no dysuria
Afebrile
Weakness
Labs
-
Labs:
WBC 5.2 10^3/uL (4.8-10.8) 11/04/24 06:19
RBC 3.50 10^6/uL (4.70-6.10) L 11/04/24 06:19
Hgb 8.7 g/dL (13.0-18.0) L 11/04/24 06:19
Hct 28.3 % (39.0-52.0) L 11/04/24 06:19
Plt Count 161 10^3/uL (130-400) 11/04/24 06:19
Sodium 134 mmol/L (135-145) L 11/03/24 05:17
Potassium 5.0 mmol/L (3.5-5.1) 11/03/24 05:17
Chloride 100 mmol/L (98-107) 11/03/24 05:17
Carbon Dioxide 27 mmol/L (22-30) 11/03/24 05:17
BUN 21 mg/dl (9-20) H 10/31/24 08:09
Creatinine 2.7 mg/dL (0.7-1.3) H 10/31/24 08:09
eGFR 23.98 10/31/24 08:09
Glucose 82 mg/dl (70-99) 10/31/24 08:09
Calcium 8.8 mg/dl (8.4-10.2) 10/31/24 08:09
Albumin 3.5 g/dl (3.5-5.0) 10/27/24 10:59
Physical Exam
-
Vital Signs:
Vital Signs
Temp Pulse Resp BP Pulse Ox
98.2 F 72 16 119/63 98
11/04/24 11:00 11/04/24 11:00 11/04/24 11:00 11/04/24 11:00 11/04/24 11:00
Cardiovascular:: Regular rate and rhythm
Respiratory:: Bilateral: CTA
Lung Excursion:: Normal
Abdomen:: Nontender and Soft
Bowel Sounds:: Normal
Extremity Edema:: None: Bilateral:
Viera Catheter: No
--- NOTE | 2024-11-04 13:27 | CM ---
CM following re: discharge planning.
Reviewed pt's chart, met with pt.
CM spoke to CC at [facility] compensation director Angela [phone] and stated she did not find pt's clinical on [employer] and requested pt's clinical faxed to [phone] for a review.
Also, pt stated he spoke to [facility] and they requested clinical[phone]
D/C plan: possible [facility] at [facility] or [facility].
CM will follow with discharge plan updates as hospitalization progresses
--- NOTE | 2024-11-04 14:30 | W.PN.HOSP.TC ---
Today's Communication/Plan
-
Episode of fever overnight.
Offers no new complaints.
COVID-19 negative. Final blood cultures pending.
Monitor closely for recurrent episode.
Follow blood cultures while off antibiotics.
Ongoing discharge planning/SNF placed
Assessment / Plan
Assessment / Plan
Mr. Shore is a 73-year-old male with a medical history of HFrEF, paroxysmal A-fib, ESRD CAD (status post stents), multiple myeloma, amyloidosis, chemo induced peripheral neuropathy, depression, and anemia of chronic disease who presented with
generalized weakness. He has been too weak recently to pursue any further chemotherapy, last treatment was many months ago. He did miss his dialysis session on Sunday (day of admission). He has been admitted for further evaluation and management
Generalized weakness:
- Suspect secondary to multiple comorbidities and subsequent deconditioning including due to multiple myeloma, has been too weak to pursue any further chemotherapy for many months
- PT/OT recommending SNF, placement pending
- No evidence of acute infection
- Discussed goals of care with the patient, change CODE STATUS to DNR, patient is not sure if he is ready for hospice care yet especially because that would mean abruptly discontinuing dialysis which would precipitate a rapid decline, patient and
his ex- (with whom he is still close) requested more information about palliative care which was provided, patient has been discussing further with his family
- Medically stable, remains significantly weak and deconditioned, awaiting SNF placement with HD capabilities
ESRD:
- Receives HD MWF
- Continue dialysis per nephrology while inpatient
CAD:
- Chronic, stable
- Continue aspirin and statin
Chronic HFrEF:
- Currently compensated
- Continue afterload reduction with Imdur 30 mg daily
Anemia:
- Due to chronic disease, stable
- Monitor
Hyponatremia:
- Chronic, appears at baseline
- Clinically insignificant
Hyperkalemia:
- Mild potassium 5.2 initially, now resolved
- Will monitor with dialysis
DVT prophylaxis: SCDs
CODE STATUS: DNR
Total time spent on today's encounter was 40 minutes
Anticipated Discharge: 24 - 48 hours
Subjective/Interval History
-
Date of Service: November 04, 2024
Objective Data
-
Labs:
Laboratory Results
11/04/24
06:19
WBC 5.2
Hgb 8.7 L
Hct 28.3 L
Plt Count 161
Vital Signs:
Vital Signs
Temp Pulse Resp BP Pulse Ox
98.2 F 72 16 119/63 98
11/04/24 11:00 11/04/24 11:00 11/04/24 11:00 11/04/24 11:00 11/04/24 11:00
I&O
11/03/24 11/04/24 11/05/24
06:59 06:59 06:59
Intake Total 800 / 800 700 / 700
Output Total 375 / 375 650 / 650
Balance 425 / 425 50 / 50
Physical Exam
-
General: Well Developed and No Apparent Distress
HEENT: Normocephalic, Atraumatic and Moist Mucous Membranes
Respiratory: Clear to Auscultation
Cardiac: Regular Rhythm and S1/S2; Negative Murmur, Rub or Gallop
GI: Soft, Nontender, Nondistended and Normal Bowel Sounds; Negative Organomegaly
Rectal: Deferred by Provider
Musculoskeletal: No Clubbing, No Cyanosis and No Edema
Skin: Negative Rash
Neuro: Nonfocal/Grossly Intact
[2024-11-04 14:57] LABS: Urine Character Clear (Clear)
[2024-11-04 15:04] VITALS: BP 101/56
[2024-11-04 15:15] LABS: Urine Squamous Cell 0-2 /LPF (Few)
[2024-11-04 15:17] LABS: Urine White Cell 40-50 /HPF (0-5)
[2024-11-04 19:10] VITALS: BP 130/61
[2024-11-04] MEDS: SENOKOT 8.6 MG PO (21:09)
[2024-11-04] MEDS: RISPERDAL 0.25 MG PO (21:09)
[2024-11-04 23:13] VITALS: BP 128/62
[2024-11-05 03:01] VITALS: BP 121/66
--- NOTE | 2024-11-05 03:29 | DOWNTIME ---
There was a [employer] Client [employer] Manager Downtime on 11/05/2024 from 0100 to 11/05/2024 at 0235. Downtime documentation of patient's care, including medication administrations, has been reconciled in the electronic record per guidelines. Refer to the
patient's paper chart under the miscellaneous tab to see printed paper medication records and downtime forms.
[2024-11-05 05:42] VITALS: BMI 18.5
[2024-11-05 07:00] VITALS: BP 126/59
[2024-11-05] MEDS: CRESTOR 10 MG PO (08:11)
[2024-11-05] MEDS: ZOVIRAX 200 MG PO (08:11)
[2024-11-05] MEDS: NEURONTIN 100 MG PO ×2 (08:11→16:00)
[2024-11-05] MEDS: ZYLOPRIM 100 MG PO (08:11)
[2024-11-05] MEDS: RENVELA 800 MG PO ×2 (08:11→16:00)
[2024-11-05] MEDS: LAMICTAL 100 MG PO (08:12)
[2024-11-05] MEDS: IMDUR (EXTENDED RELEASE) 30 MG PO (08:12)
[2024-11-05] MEDS: SPORANOX 200 MG PO (08:12)
[2024-11-05] MEDS: HEPARIN 5000 UNITS SC (08:12)
[2024-11-05] MEDS: ASPIR LOW (ENTERIC COATED) 81 MG PO (08:12)
[2024-11-05 09:06] VITALS: BP 108/53; BP 121/53; PULSE 60; O2SAT 99
--- NOTE | 2024-11-05 10:50 | CM ---
Addendum entered by Vivek Sparks 11/05/24 15:01:
GRAHAM spoke to [facility] outpatient HD treatment solar manufacturer's representative Roseline [phone] she is aware that pt will report to her center on regular scheduled treatment on Sunday11/07/[address] [facility]. Requested pt's
clinical with flow sheets faxed to [facility] at [phone].
Addendum entered by Vivek Sparks 11/05/24 13:58:
CM received a phone call from care and sales representative [employer] Morena dalton she provided with an auth. Pt is approved for 3 initial days of SNF level of care at [facility] from today 11/05/24 till 11/07/24 with LCD and NRD 11/07/24.
Auth: [id number]. reviewer: Dunia Bernal Fax for additional review: [phone].
Auth information forwarded to [facility] technical sales director and she confirmed that pt is accepted for admission today.
Per MD pt is upgraded to inpatient. IMM reviewed, placed on chart, pt has a copy.
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 [facility] completed and left with
Complete care at [facility] nursing report: [phone] and ask 1st floor nursing station.
Discharge instructions fax: [phone]
D/C plan: Complete Care at [facility].
Original Note:
CM following re: discharge planning.
Reviewed pt's chart, met with pt.
According to MD pt is medically stable to be discharged. Pt is aware, expressed his agreement with discharge. IMM reviewed, placed on chart, pt has a copy. Pt stated he will have HD treatment at 12:00 p.m.
CM spoke to [facility] technical sales director Angela [phone] and she confirmed they do have a bed available and pt is accepted for admission today.
[facility]
Accepting physician: Pelon Raya npi: [phone]
CM initiated an auth from [facility]. Pending auth: [id number]. requested pt's clinical faxed to [facility] at [phone].
Awaiting for an authorization.
Complete care at [facility] nursing report: [phone] and ask 1st floor nursing station.
Discharge instructions fax: [phone]
D/C plan: Complete care at [facility]. Awaiting for an auth.
[2024-11-05 11:00] VITALS: BP 111/54
[2024-11-05 11:35] VITALS: BP 106/52; PULSE 62; O2SAT 99
[2024-11-05 13:24] LABS: Hematocrit 27.0 % (39.0-52.0); Hemoglobin 8.4 g/dL (13.0-18.0); Mean Corp Hgb Conc. 31.1 g/dL (33.0-37.0); Mean Corpuscular Volume 80.1 fL (80.0-94.0); Platelet Count 150 10^3/uL (130-400); Red Cell Dist. Width 17.7 % (11.5-14.5)
[2024-11-05] MEDS: RETACRIT 10000 UNITS IV (13:30)
--- NOTE | 2024-11-05 13:30 | W.PN.NEPH.HD ---
Assessment
-
Patient seen on dialysis
Systolic blood pressure stable with current UF
HD via AV fistula
Progress Note - Hemodialysis
-
Date of Service: November 05, 2024
Duration: 30 minutes and 3 hours
Potassium Bath: 3
Calcium Bath: 2.5
Opti-Dialyzer: 160
Ultrafiltration: Other (2 kg)
Blood Flow: 400
Dialysate Flow: 600
Heparin: None
EPO: None
[2024-11-05 13:38] LABS: Blood Urea Nitrogen 46 mg/dl (9-20); Calcium 10.3 mg/dl (8.4-10.2); Carbon Dioxide 31 mmol/L (22-30); Chloride 96 mmol/L (98-107); Estimated Creatinine Clearance 15 ml/min; Glucose 108 mg/dl (70-99); Potassium 4.8 mmol/L (3.5-5.1); Sodium 133 mmol/L (135-145); eGFR 16.98
[2024-11-05] MEDS: MANNITOL 25% 12.5 GRAMS IV ×2 (13:57→15:47)
--- NOTE | 2024-11-05 14:49 | W.DS.TRANS ---
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
-
Discharge Instructions:
Discharge Diagnosis/Procedures Failure to thrive with deconditioning.
ESRD
CAD.
Chronic CHF reduced EF
Anemia baseline
Diet Regular
Blood Work Will need outpatient labs to monitor serum
itraconazole levels with dosage adjustments as
needed
Instructions:
Stand-Alone Forms:
Changes to Home Medications: No
Discharge Medications:
DC Medications w/original date entered in [employer]
lamotrigine 100 mg tablet 100 mg PO BID Neurological Condition 07/24/19
rosuvastatin 10 mg tablet 10 mg PO DAILY High cholesterol 08/26/19
aspirin 81 mg tablet,delayed release 81 mg PO DAILY Blood clot prevention/tx 08/27/19
allopurinol 100 mg tablet 100 mg PO DAILY Gout 06/15/20
gabapentin 100 mg capsule (Neurontin) 100 mg PO TID Pain 09/26/21
risperidone 0.25 mg tablet 0.25 mg PO HS Mental Health/Anxiety 08/06/23
isosorbide mononitrate 30 mg tablet,extended release 24 hr 30 mg PO DAILY HEART CONDITION #0 tabs 08/21/23
acyclovir 200 mg capsule 200 mg PO BID Infection 04/19/24
midodrine 5 mg tablet 5 mg PO BID Blood Pressure 10/27/24
sevelamer carbonate 800 mg tablet 800 mg PO BID 10/27/24
Home Medication Changes
Pending Results: No
[2024-11-05 15:00] VITALS: BP 109/53
[2024-11-05] MEDS: HEPARIN SC (15:23)
--- NOTE | 2024-11-05 19:20 | PTCARENOTE ---
Patient discharged to [place], [facility]. Report given to facility by this RN. HD completed prior to DC, 2 kilos off. R subq port de-accessed by IV nurse. Tele pack removed by this RN. Vitals prior to DC stable. Belongings
gathered in room, pocket knife returned to patient from security and placed in belonging back prior to DC, transport team made aware.
== END 2024-11-05 19:20 | DRG 947 ==
LOC: 2 NORTH 13:25
PROVIDERS: Internal Medicine; Internal Medicine Nephrology; Nurse Practitioner Family; Nurse Practitioner Gerontology; Physician Assistant; ADMITTING PHYSICIAN Hospitalist; ATTENDING PHYSICIAN Internal Medicine; CONSULT PHYSICIAN Specialist; EMERGENCY PHYSICIAN Student in an Organized Health Care Education/Training Program; FAMILY PHYSICIAN Internal Medicine
PROC: 5A1D70Z Performance of Urinary Filtration, Intermittent, Less than 6 Hours Per Day (ICD-10-PCS; 2024-11-03)
DX: R53.1 Weakness (principal); G93.41 Metabolic encephalopathy; N18.6 End stage renal disease; D61.818 Other pancytopenia; C90.00 Multiple myeloma not having achieved remission; E87.1 Hypo-osmolality and hyponatremia; I13.2 Hypertensive heart and chronic kidney disease with heart failure and with stage 5 chronic kidney disease, or end stage renal disease; I50.22 Chronic systolic (congestive) heart failure; E85.81 Light chain (AL) amyloidosis; R62.7 Adult failure to thrive; N20.0 Calculus of kidney; Z99.2 Dependence on renal dialysis; Z66 Do not resuscitate; I95.89 Other hypotension; Z79.899 Other long term (current) drug therapy; D63.1 Anemia in chronic kidney disease; J45.20 Mild intermittent asthma, uncomplicated; I25.10 Atherosclerotic heart disease of native coronary artery without angina pectoris; I48.0 Paroxysmal atrial fibrillation; E87.5 Hyperkalemia; E78.00 Pure hypercholesterolemia, unspecified; M10.9 Gout, unspecified; F32.A Depression, unspecified; G62.0 Drug-induced polyneuropathy; F41.9 Anxiety disorder, unspecified; E83.39 Other disorders of phosphorus metabolism; T45.1X5A Adverse effect of antineoplastic and immunosuppressive drugs, initial encounter; G47.30 Sleep apnea, unspecified; Z11.52 Encounter for screening for COVID-19; Z79.01 Long term (current) use of anticoagulants; Z79.82 Long term (current) use of aspirin; Z87.891 Personal history of nicotine dependence; Z95.5 Presence of coronary angioplasty implant and graft
CPT/HCPCS: 70450; 71046; 80048; 80051; 80053; 81003; 81015; 82962; 83605; 83735; 84484; 85014; 85018; 85025; 85027; 85610; 87040; 87070; 87086; 87811; 93005; 97110; 97116; 97163; 97167; 97530; 97535; 99285; G0257; P9047; Q5106